=== PATIENT | male | born 1945 | race Caucasian/White ===

== ENCOUNTER → 2016-08-24 | Outpatient (CLI) | payer MEDICARE ==
--- NOTE | 2016-08-29 19:50 | HOLTMON ---
[facility] Test Date: 2016-08-24 Pat Name: LORY WINKLER JR Department: Room: - Gender: Wound Specialist: ANATOLIY MAZA CCT : [id number] Requested By: Shyam Leos Order Number: [id number] Reading MD: Fred Alcala Interpretive Statements No significant diary entries. Heart rate variability was normal. There were occasional PVC's and PAC's with brief runs of apparent ventricular tachycardia vs. atrial fibrillation with aberrant conduction. No significant ST events or pauses. Would suggest further investigation into type and cause of arrhythmia. Electronically Signed On 08-29-2016 19:50:16 EST by Fred Alcala
== END ==
LOC: M EKG 14:38
PROVIDERS: ATTEND Physician Assistant Medical
DX: R42 Dizziness and giddiness (principal); Z86.79 Personal history of other diseases of the circulatory system

== ENCOUNTER → 2016-08-24 | Outpatient (CLI) | payer MEDICARE ==
[2016-08-24 15:04] LABS: MEAN CORPUSCULAR HEMOGLOBIN 32.2 pg (27.0-33.0); MEAN CORPUSCULAR HGB CONC 33.6 g/dl (32.0-36.5); MEAN CORPUSCULAR VOLUME 95.7 fl (80.0-96.0); RED CELL DISTRIBUTION WIDTH 15.3 % (11.5-14.5); WHITE BLOOD COUNT 11.9 K/mm3 (4.0-10.0)
== END ==
LOC: M LAB 14:34
PROVIDERS: ATTEND Internal Medicine Gastroenterology
DX: K25.9 Gastric ulcer, unspecified as acute or chronic, without hemorrhage or perforation (principal); K92.2 Gastrointestinal hemorrhage, unspecified

== ENCOUNTER → 2016-11-11 | Outpatient (CLI) | payer MEDICARE ==
[2016-11-11 17:06] LABS: BASO # 0.1 K/mm3 (0.0-0.2); BASO % 0.8 % (0.0-1.0); EOS # 0.3 K/mm3 (0.0-0.50); EOS % 2.9 % (0.0-3.0); LARGE UNSTAINED CELL # 0.1 K/mm3 (0.0-0.4); LARGE UNSTAINED CELL % 1.2 % (0.0-4.0); LYMPH # 2.2 K/mm3 (1.5-4.5); MEAN CORPUSCULAR HGB CONC 33.3 g/dl (32.0-36.5); MEAN CORPUSCULAR VOLUME 96.2 fl (80.0-96.0); MONO # 0.6 K/mm3 (0.0-0.8); MONO % 5.2 % (0.0-5.0); NEUTROPHILS # 8.8 K/mm3 (1.8-7.7); PLATELET COUNT, AUTOMATED 361 k/mm3 (150-450); RED CELL DISTRIBUTION WIDTH 15.2 % (11.5-14.5)
[2016-11-11 17:29] LABS: ALBUMIN 3.6 GM/DL (3.2-5.2); ALBUMIN/GLOBULIN RATIO 1.16 (1.00-1.93); BILIRUBIN,TOTAL 0.5 MG/DL (0.2-1.0); CALCIUM LEVEL 8.4 MG/DL (8.8-10.2); CREATININE FOR GFR 1.41 MG/DL (0.70-1.30); GLOMERULAR FILTRATION RATE 52.9 (>42); MAGNESIUM LEVEL 1.7 MG/DL (1.8-2.4); PERCENT SATURATION 40.6 % (19.7-37.4); PHOSPHORUS LEVEL 3.6 MG/DL (2.5-4.9); TOTAL PROTEIN 6.7 GM/DL (6.4-8.2)
[2016-11-15 10:57] LABS: PRETREATED FOLATE FOR RBCFOL 11.2 NG/ML
== END ==
LOC: M LAB 16:29
PROVIDERS: ATTEND Surgery
DX: K91.2 Postsurgical malabsorption, not elsewhere classified (principal); Z98.84 Bariatric surgery status

== ENCOUNTER 2016-12-12 10:57 | Emergency (ER) | payer MEDICARE ==
[~2016-12-12] VITALS: Ht 172.7 cm; Wt 80.3 kg
[2016-12-12 10:58] VITALS: BP 169/79
[2016-12-12] MEDS ORDERED: PANT40TA2 (11:22)
[2016-12-12] MEDS ORDERED: LANTINJ4 SQ (11:22)
[2016-12-12] MEDS ORDERED: CARV25TA (11:22)
[2016-12-12] MEDS ORDERED: ASPI1TAB PO (11:22)
== END 2016-12-12 12:03 | disposition home or self-care (01) ==
LOC: M ED 11:51
DX: T16.1XXA Foreign body in right ear, initial encounter (principal); X58.XXXA Exposure to other specified factors, initial encounter; Y93.89 Activity, other specified; Y92.89 Other specified places as the place of occurrence of the external cause; Y99.8 Other external cause status; Z79.899 Other long term (current) drug therapy; Z79.82 Long term (current) use of aspirin; Z79.4 Long term (current) use of insulin; Z88.8 Allergy status to other drugs, medicaments and biological substances; Z95.1 Presence of aortocoronary bypass graft; Z98.0 Intestinal bypass and anastomosis status; Z87.891 Personal history of nicotine dependence

== ENCOUNTER → 2017-07-11 | Outpatient (CLI) | payer MEDICARE ==
[~2017-07-11] MED LIST: ASPI1TAB PO; CARV25TA; LANTINJ4 SQ; PANT40TA2
[2017-07-11 12:08] LABS: BASO # 0.1 10^3/uL (0.0-0.2); BASO % 1.4 % (0.0-1.0); EOS # 0.4 10^3/uL (0.0-0.50); IMMATURE GRANULOCYTE % 0.6 % (0-0); LYMPH # 2.3 10^3/uL (1.5-4.5); LYMPH % 25.6 % (24.0-44.0); MEAN CORPUSCULAR HGB CONC 33.9 g/dl (32.0-36.5); MEAN CORPUSCULAR VOLUME 97.5 fl (80.0-96.0); MONO # 0.7 10^3/uL (0.0-0.8); MONO % 8.2 % (0.0-5.0); NEUTROPHILS # 5.2 10^3/uL (1.8-7.7); NEUTROPHILS % 59.2 % (36.0-66.0); PLATELET COUNT, AUTOMATED 309 10^3/uL (150-450); WHITE BLOOD COUNT 8.9 10^3/uL (4.0-10.0)
[2017-07-11 12:38] LABS: ALBUMIN 3.6 GM/DL (3.2-5.2); ALBUMIN/GLOBULIN RATIO 1.13 (1.00-1.93); BILIRUBIN,TOTAL 0.4 MG/DL (0.2-1.0); CALCIUM LEVEL 9.1 MG/DL (8.8-10.2); CREATININE FOR GFR 1.71 MG/DL (0.70-1.30); GLOMERULAR FILTRATION RATE 42.2 (>42); MAGNESIUM LEVEL 1.8 MG/DL (1.8-2.4); PERCENT SATURATION 35.9 % (19.7-50.0); TOTAL PROTEIN 6.8 GM/DL (6.4-8.2)
[2017-07-11 13:53] LABS: PRETREATED FOLATE FOR RBCFOL 23.3 NG/ML
== END ==
LOC: M LAB 11:09
PROVIDERS: ATTEND Surgery
DX: K91.2 Postsurgical malabsorption, not elsewhere classified (principal); E55.9 Vitamin D deficiency, unspecified; Z98.84 Bariatric surgery status

== ENCOUNTER → 2017-11-14 | Outpatient (CLI) | payer MEDICARE ==
[2017-11-14 13:54] LABS: HEMATOCRIT 32.2 % (42.0-52.0); HEMOGLOBIN 10.9 g/dl (13.5-17.5); MEAN CORPUSCULAR HEMOGLOBIN 32.9 pg (27.0-33.0); MEAN CORPUSCULAR HGB CONC 33.9 g/dl (32.0-36.5); MEAN CORPUSCULAR VOLUME 97.3 fl (80.0-96.0); PLATELET COUNT, AUTOMATED 304 10^3/uL (150-450); RED BLOOD COUNT 3.31 10^6/uL (4.30-6.10); WHITE BLOOD COUNT 10.3 10^3/uL (4.0-10.0)
[2017-11-14 14:24] LABS: ALBUMIN 3.7 GM/DL (3.2-5.2); ALBUMIN/GLOBULIN RATIO 1.19 (1.00-1.93); ALKALINE PHOSPHATASE 57 U/L (45-117); ALT/SGPT 23 U/L (12-78); ANION GAP 4 MEQ/L (8-16); AST/SGOT 14 U/L (7-37); BILIRUBIN,TOTAL 0.4 MG/DL (0.2-1.0); BLOOD UREA NITROGEN 38 MG/DL (7-18); CALCIUM LEVEL 8.8 MG/DL (8.8-10.2); CARBON DIOXIDE LEVEL 27 MEQ/L (21-32); CHLORIDE LEVEL 109 MEQ/L (98-107); CREATININE FOR GFR 1.93 MG/DL (0.70-1.30); GLOMERULAR FILTRATION RATE 36.7 (>42); GLUCOSE, FASTING 143 MG/DL (70-100); POTASSIUM SERUM 4.9 MEQ/L (3.5-5.1); SODIUM LEVEL 140 MEQ/L (136-145); TOTAL PROTEIN 6.8 GM/DL (6.4-8.2)
[2017-11-14 14:29] LABS: ESTIMATED AVERAGE GLUCOSE 209 MG/DL (60-110); HEMOGLOBIN A1c 8.9 %
== END ==
LOC: M LAB 13:29
DX: E11.65 Type 2 diabetes mellitus with hyperglycemia (principal); R53.83 Other fatigue
CPT/HCPCS: 80053

== ENCOUNTER → 2018-02-16 | Outpatient (CLI) | payer MEDICARE ==
[2018-02-16 11:32] LABS: BASO # 0.1 10^3/uL (0.0-0.2); BASO % 0.9 % (0.0-1.0); EOS # 0.4 10^3/uL (0.0-0.50); EOS % 4.5 % (0.0-3.0); HEMATOCRIT 30.8 % (42.0-52.0); HEMOGLOBIN 10.2 g/dl (13.5-17.5); IMMATURE GRANULOCYTE % 0.5 % (0-3.0); LYMPH % 23.7 % (24.0-44.0); MEAN CORPUSCULAR HGB CONC 33.1 g/dl (32.0-36.5); MEAN CORPUSCULAR VOLUME 99.7 fl (80.0-96.0); MONO # 0.7 10^3/uL (0.0-0.8); MONO % 7.5 % (0.0-5.0); NEUTROPHILS # 5.4 10^3/uL (1.8-7.7); NEUTROPHILS % 62.9 % (36.0-66.0); PLATELET COUNT, AUTOMATED 279 10^3/uL (150-450); RED BLOOD COUNT 3.09 10^6/uL (4.30-6.10); RED CELL DISTRIBUTION WIDTH 13.9 % (11.5-14.5); WHITE BLOOD COUNT 8.6 10^3/uL (4.0-10.0)
[2018-02-16 11:59] LABS: ESTIMATED AVERAGE GLUCOSE 148 MG/DL (60-110); HEMOGLOBIN A1c 6.8 %
[2018-02-16 12:57] LABS: CHOLESTEROL LEVEL 135 MG/DL (<200); CHOLESTEROL RISK RATIO 3.375 (<5); HDL CHOLESTEROL 40 MG/DL (>40); LDL CHOLESTEROL 82.6 MG/DL (<100); NON-HDL-C 95 MG/DL; TRIGLYCERIDES LEVEL 62 MG/DL (<150)
== END ==
LOC: M WUC 08:48
DX: E11.65 Type 2 diabetes mellitus with hyperglycemia (principal); E78.2 Mixed hyperlipidemia
CPT/HCPCS: 84443

== ENCOUNTER → 2018-04-02 | Outpatient (CLI) | payer MEDICARE ==
[2018-04-02 13:59] LABS: HEMOGLOBIN 8.3 g/dl (13.5-17.5); MEAN CORPUSCULAR HEMOGLOBIN 32.9 pg (27.0-33.0); MEAN CORPUSCULAR HGB CONC 33.2 g/dl (32.0-36.5); MEAN CORPUSCULAR VOLUME 99.2 fl (80.0-96.0); PLATELET COUNT, AUTOMATED 301 10^3/uL (150-450); RED BLOOD COUNT 2.52 10^6/uL (4.30-6.10); RED CELL DISTRIBUTION WIDTH 13.9 % (11.5-14.5)
== END ==
LOC: M WUC 12:03
DX: D64.9 Anemia, unspecified (principal); K92.1 Melena

== ENCOUNTER → 2018-04-03 | Outpatient (CLI) | payer MEDICARE ==
[2018-04-03 09:08] LABS: HEMATOCRIT 25.2 % (42.0-52.0); HEMOGLOBIN 8.4 g/dl (13.5-17.5); MEAN CORPUSCULAR HEMOGLOBIN 33.9 pg (27.0-33.0); MEAN CORPUSCULAR HGB CONC 33.3 g/dl (32.0-36.5); MEAN CORPUSCULAR VOLUME 101.6 fl (80.0-96.0); PLATELET COUNT, AUTOMATED 312 10^3/uL (150-450); RED BLOOD COUNT 2.48 10^6/uL (4.30-6.10); RED CELL DISTRIBUTION WIDTH 14.1 % (11.5-14.5); WHITE BLOOD COUNT 10.2 10^3/uL (4.0-10.0)
== END ==
LOC: M WUC 08:05
DX: K92.1 Melena (principal); D64.9 Anemia, unspecified

== ENCOUNTER 2018-04-04 18:55 | Inpatient (IN) | payer MEDICARE ==
[2018-04-04 19:21] LABS: BASO # 0.1 10^3/uL (0.0-0.2); BASO % 0.6 % (0.0-1.0); EOS # 0.4 10^3/uL (0.0-0.50); EOS % 3.2 % (0.0-3.0); HEMATOCRIT 22.9 % (42.0-52.0); HEMOGLOBIN 7.7 g/dl (13.5-17.5); IMMATURE GRANULOCYTE % 1.5 % (0-3.0); LYMPH # 2.8 10^3/uL (1.5-4.5); LYMPH % 23.7 % (24.0-44.0); MEAN CORPUSCULAR HEMOGLOBIN 33.5 pg (27.0-33.0); MEAN CORPUSCULAR HGB CONC 33.6 g/dl (32.0-36.5); MEAN CORPUSCULAR VOLUME 99.6 fl (80.0-96.0); MONO # 1.1 10^3/uL (0.0-0.8); MONO % 9.1 % (0.0-5.0); NEUTROPHILS # 7.3 10^3/uL (1.8-7.7); NEUTROPHILS % 61.9 % (36.0-66.0); PLATELET COUNT, AUTOMATED 342 10^3/uL (150-450); RED CELL DISTRIBUTION WIDTH 14.5 % (11.5-14.5); WHITE BLOOD COUNT 11.7 10^3/uL (4.0-10.0)
[2018-04-04 19:33] LABS: INR 0.99; PROTHROMBIN TIME 13.2 SECONDS (12.1-14.4)
[2018-04-04 19:34] LABS: PARTIAL THROMBOPLASTIN TIME 27.2 SECONDS (25.4-37.6)
[2018-04-04 19:47] LABS: ALBUMIN 3.5 GM/DL (3.2-5.2); ALBUMIN/GLOBULIN RATIO 1.17 (1.00-1.93); ALKALINE PHOSPHATASE 54 U/L (45-117); ALT/SGPT 24 U/L (12-78); ANION GAP 7 MEQ/L (8-16); AST/SGOT 11 U/L (7-37); BILIRUBIN,DIRECT 0.1 MG/DL (0.0-0.2); BILIRUBIN,TOTAL 0.3 MG/DL (0.2-1.0); BLOOD UREA NITROGEN 42 MG/DL (7-18); CALCIUM LEVEL 8.5 MG/DL (8.8-10.2); CARBON DIOXIDE LEVEL 25 MEQ/L (21-32); CHLORIDE LEVEL 110 MEQ/L (98-107); CK-MB VALUE MASS 1.5 NG/ML (<3.6); CPK CREATINE PHOSPHOKINASE 55 U/L (39-308); CREATININE FOR GFR 2.19 MG/DL (0.70-1.30); GLOMERULAR FILTRATION RATE 31.6 (>42); GLUCOSE, FASTING 199 MG/DL (70-100); LIPASE 263 U/L (73-393); MB/CK RELATIVE INDEX 2.72 (< OR =4); POTASSIUM SERUM 4.5 MEQ/L (3.5-5.1); SODIUM LEVEL 142 MEQ/L (136-145); TOTAL PROTEIN 6.5 GM/DL (6.4-8.2); TROPONIN I < 0.02 NG/ML (< 0.10)
[2018-04-04 20:57] LABS: IMMEDIATE SPIN CROSSMATCH 1 2
[2018-04-04] MEDS: PANTOPRAZOLE 40MG INJ (PROTONIX) (C9113) IV (21:19)
[2018-04-04] MEDS: NS 1,000 ML IV ×2 (21:35→22:01)
[2018-04-04] MEDS: CARVedilol 12.5 MG TAB PO (21:35)
[2018-04-04] MEDS ORDERED: ACETAMINOPHEN TAB 650MG DOSE (2X325MG) PO (21:45)
[2018-04-04] MEDS ORDERED: MORPHINE 4 MG/ML 1ML VIAL/SYRINGE (J2270) IV (21:45)
[2018-04-04] MEDS ORDERED: ONDANSETRON 4MG/2ML VIAL (J2405) IV (21:45)
[2018-04-05 00:41] LABS: HEMATOCRIT 25.5 % (42.0-52.0); HEMOGLOBIN 8.4 g/dl (13.5-17.5); MEAN CORPUSCULAR HEMOGLOBIN 32.3 pg (27.0-33.0); MEAN CORPUSCULAR HGB CONC 32.9 g/dl (32.0-36.5); MEAN CORPUSCULAR VOLUME 98.1 fl (80.0-96.0); PLATELET COUNT, AUTOMATED 267 10^3/uL (150-450); RED CELL DISTRIBUTION WIDTH 14.7 % (11.5-14.5); WHITE BLOOD COUNT 9.7 10^3/uL (4.0-10.0)
[2018-04-05 01:09] LABS: CK-MB VALUE MASS 1.3 NG/ML (<3.6); CPK CREATINE PHOSPHOKINASE 44 U/L (39-308); MB/CK RELATIVE INDEX 2.95 (< OR =4); TROPONIN I < 0.02 NG/ML (< 0.10)
[2018-04-05 07:20] LABS: HEMATOCRIT 26.6 % (42.0-52.0); HEMOGLOBIN 8.9 g/dl (13.5-17.5); MEAN CORPUSCULAR HEMOGLOBIN 32.8 pg (27.0-33.0); MEAN CORPUSCULAR HGB CONC 33.5 g/dl (32.0-36.5); MEAN CORPUSCULAR VOLUME 98.2 fl (80.0-96.0); PLATELET COUNT, AUTOMATED 265 10^3/uL (150-450); RED BLOOD COUNT 2.71 10^6/uL (4.30-6.10); RED CELL DISTRIBUTION WIDTH 15.1 % (11.5-14.5); WHITE BLOOD COUNT 9.4 10^3/uL (4.0-10.0)
[2018-04-05 07:36] LABS: ESTIMATED AVERAGE GLUCOSE 126 MG/DL (60-110)
[2018-04-05 07:51] LABS: ANION GAP 10 MEQ/L (8-16); BLOOD UREA NITROGEN 35 MG/DL (7-18); CALCIUM LEVEL 8.3 MG/DL (8.8-10.2); CARBON DIOXIDE LEVEL 22 MEQ/L (21-32); CHLORIDE LEVEL 113 MEQ/L (98-107); CK-MB VALUE MASS 1.1 NG/ML (<3.6); CPK CREATINE PHOSPHOKINASE 48 U/L (39-308); CREATININE FOR GFR 1.89 MG/DL (0.70-1.30); GLOMERULAR FILTRATION RATE 37.5 (>42); GLUCOSE, FASTING 127 MG/DL (70-100); MB/CK RELATIVE INDEX 2.29 (< OR =4); POTASSIUM SERUM 4.3 MEQ/L (3.5-5.1); SODIUM LEVEL 145 MEQ/L (136-145); TROPONIN I < 0.02 NG/ML (< 0.10)
[2018-04-05] MEDS: METOPROLOL 5 MG/5 ML VIAL IV ×3 (08:05→17:49)
[2018-04-05] MEDS: PANTOPRAZOLE 40MG INJ (PROTONIX) (C9113) IV ×2 (09:03→20:25)
[2018-04-05] MEDS: hydrALAZINE INJ 20 MG/ML VIAL IV ×5 (09:50→23:48)
[2018-04-05] MEDS: cloNIDine 0.1 MG TAB PO (09:50)
[2018-04-05 12:54] LABS: HEMATOCRIT 25.2 % (42.0-52.0); HEMOGLOBIN 8.6 g/dl (13.5-17.5); MEAN CORPUSCULAR HEMOGLOBIN 33.3 pg (27.0-33.0); MEAN CORPUSCULAR HGB CONC 34.1 g/dl (32.0-36.5); MEAN CORPUSCULAR VOLUME 97.7 fl (80.0-96.0); PLATELET COUNT, AUTOMATED 254 10^3/uL (150-450); RED BLOOD COUNT 2.58 10^6/uL (4.30-6.10); RED CELL DISTRIBUTION WIDTH 15.6 % (11.5-14.5); WHITE BLOOD COUNT 8.3 10^3/uL (4.0-10.0)
[2018-04-05 13:40] LABS: TROPONIN I < 0.02 NG/ML (< 0.10)
[2018-04-05 13:41] LABS: CK-MB VALUE MASS 1.2 NG/ML (<3.6); CPK CREATINE PHOSPHOKINASE 44 U/L (39-308); MB/CK RELATIVE INDEX 2.72 (< OR =4)
[2018-04-05] MEDS: GOLYTELY SOLN 4000 ML BTL PO (16:25)
[2018-04-05] MEDS ORDERED: GLUCOSE 4 GM CHEW TABLET PO (17:45)
[2018-04-05] MEDS ORDERED: DEXTROSE 50% 50 ML SYRINGE IV (17:45)
[2018-04-05] MEDS ORDERED: GLUCAGON FOR INJ 1 MG VIAL (J1610) SC (17:45)
[2018-04-05] MEDS: HumaLOG INSULIN (NovoLOG) PER UNIT SC ×2 (18:00→23:45)
[2018-04-05 18:51] LABS: HEMATOCRIT 27.5 % (42.0-52.0); HEMOGLOBIN 9.2 g/dl (13.5-17.5); MEAN CORPUSCULAR HEMOGLOBIN 32.7 pg (27.0-33.0); MEAN CORPUSCULAR HGB CONC 33.5 g/dl (32.0-36.5); MEAN CORPUSCULAR VOLUME 97.9 fl (80.0-96.0); PLATELET COUNT, AUTOMATED 282 10^3/uL (150-450); RED BLOOD COUNT 2.81 10^6/uL (4.30-6.10); RED CELL DISTRIBUTION WIDTH 15.4 % (11.5-14.5)
[2018-04-05 18:55] LABS: BEDSIDE GLUCOSE 129 MG/DL (83-110)
[2018-04-05 21:26] LABS: BEDSIDE GLUCOSE 144 MG/DL (83-110)
[2018-04-05 23:38] LABS: BEDSIDE GLUCOSE 148 MG/DL (83-110)
[2018-04-06] MEDS: NITROGLYCERIN 0.4 MG SUBL TABLET SL (00:13)
[2018-04-06 00:46] LABS: HEMATOCRIT 31.6 % (42.0-52.0); HEMOGLOBIN 10.8 g/dl (13.5-17.5); MEAN CORPUSCULAR HEMOGLOBIN 32.6 pg (27.0-33.0); MEAN CORPUSCULAR HGB CONC 34.2 g/dl (32.0-36.5); MEAN CORPUSCULAR VOLUME 95.5 fl (80.0-96.0); PLATELET COUNT, AUTOMATED 316 10^3/uL (150-450); RED BLOOD COUNT 3.31 10^6/uL (4.30-6.10); RED CELL DISTRIBUTION WIDTH 15.9 % (11.5-14.5); WHITE BLOOD COUNT 19.1 10^3/uL (4.0-10.0)
[2018-04-06] MEDS: NS 1,000 ML IV ×3 (02:03→12:28)
[2018-04-06] MEDS: hydrALAZINE INJ 20 MG/ML VIAL IV ×6 (04:54→23:58)
[2018-04-06] MEDS: HumaLOG INSULIN (NovoLOG) PER UNIT SC ×4 (06:00→23:58)
[2018-04-06 06:19] LABS: BEDSIDE GLUCOSE 104 MG/DL (83-110)
[2018-04-06] MEDS: METOPROLOL 5 MG/5 ML VIAL IV ×2 (06:22)
[2018-04-06 07:02] LABS: HEMATOCRIT 28.4 % (42.0-52.0); HEMOGLOBIN 9.9 g/dl (13.5-17.5); MEAN CORPUSCULAR HGB CONC 34.9 g/dl (32.0-36.5); MEAN CORPUSCULAR VOLUME 94.7 fl (80.0-96.0); PLATELET COUNT, AUTOMATED 296 10^3/uL (150-450); RED CELL DISTRIBUTION WIDTH 16.1 % (11.5-14.5); WHITE BLOOD COUNT 10.2 10^3/uL (4.0-10.0)
[2018-04-06 07:17] LABS: ANION GAP 10 MEQ/L (8-16); BLOOD UREA NITROGEN 24 MG/DL (7-18); CARBON DIOXIDE LEVEL 21 MEQ/L (21-32); CHLORIDE LEVEL 110 MEQ/L (98-107); CREATININE FOR GFR 1.65 MG/DL (0.70-1.30); GLOMERULAR FILTRATION RATE 43.9 (>42); GLUCOSE, FASTING 108 MG/DL (70-100); POTASSIUM SERUM 3.9 MEQ/L (3.5-5.1); SODIUM LEVEL 141 MEQ/L (136-145)
[2018-04-06] MEDS: CARVedilol 12.5 MG TAB PO ×2 (09:07→20:11)
[2018-04-06] MEDS: PANTOPRAZOLE 40MG INJ (PROTONIX) (C9113) IV ×2 (09:07→20:11)
[2018-04-06 12:35] LABS: BEDSIDE GLUCOSE 116 MG/DL (83-110)
[2018-04-06 12:39] LABS: HEMATOCRIT 27.5 % (42.0-52.0); HEMOGLOBIN 9.5 g/dl (13.5-17.5); MEAN CORPUSCULAR HEMOGLOBIN 33.1 pg (27.0-33.0); MEAN CORPUSCULAR HGB CONC 34.5 g/dl (32.0-36.5); MEAN CORPUSCULAR VOLUME 95.8 fl (80.0-96.0); PLATELET COUNT, AUTOMATED 288 10^3/uL (150-450); RED BLOOD COUNT 2.87 10^6/uL (4.30-6.10); RED CELL DISTRIBUTION WIDTH 16.3 % (11.5-14.5); WHITE BLOOD COUNT 9.3 10^3/uL (4.0-10.0)
[2018-04-06] MEDS ORDERED: LIDOCAINE 2% INJ 100 MG/5 ML SDV (FOR ANES.) As Ordered (13:36)
[2018-04-06] MEDS ORDERED: PROPOFOL 200 MG/20 ML VIAL As Ordered (13:36)
[2018-04-06] MEDS ORDERED: fentaNYL 100 MCG/2 ML INJECTION (J3010) As Ordered (13:44)
[2018-04-06] MEDS ORDERED: ONDANSETRON 4MG/2ML VIAL (J2405) As Ordered (13:48)
[2018-04-06] MEDS ORDERED: ePHEDrine SULFATE 25 MG/5 ML(5MG/ML) SYRINGE As Ordered (14:30)
[2018-04-06] MEDS ORDERED: PHENYLephrine HCL 500 MCG/5 ML (100MCG/ML) SYRINGE (J2370) As Ordered (14:35)
[2018-04-06 16:49] LABS: BEDSIDE GLUCOSE 215 MG/DL (83-110)
[2018-04-06 18:47] LABS: HEMATOCRIT 28.6 % (42.0-52.0); HEMOGLOBIN 9.6 g/dl (13.5-17.5); MEAN CORPUSCULAR HEMOGLOBIN 32.9 pg (27.0-33.0); MEAN CORPUSCULAR HGB CONC 33.6 g/dl (32.0-36.5); MEAN CORPUSCULAR VOLUME 97.9 fl (80.0-96.0); PLATELET COUNT, AUTOMATED 288 10^3/uL (150-450); RED BLOOD COUNT 2.92 10^6/uL (4.30-6.10); RED CELL DISTRIBUTION WIDTH 16.5 % (11.5-14.5); WHITE BLOOD COUNT 9.7 10^3/uL (4.0-10.0)
[2018-04-06 23:29] LABS: BEDSIDE GLUCOSE 113 MG/DL (83-110)
[2018-04-07] MEDS: NS 1,000 ML IV (01:36)
[2018-04-07] MEDS: hydrALAZINE INJ 20 MG/ML VIAL IV ×3 (03:42→12:00)
[2018-04-07 05:49] LABS: ANION GAP 10 MEQ/L (8-16); BLOOD UREA NITROGEN 23 MG/DL (7-18); CALCIUM LEVEL 7.8 MG/DL (8.8-10.2); CARBON DIOXIDE LEVEL 20 MEQ/L (21-32); CHLORIDE LEVEL 114 MEQ/L (98-107); CREATININE FOR GFR 1.77 MG/DL (0.70-1.30); GLOMERULAR FILTRATION RATE 40.5 (>42); GLUCOSE, FASTING 119 MG/DL (70-100); SODIUM LEVEL 144 MEQ/L (136-145)
[2018-04-07] MEDS: HumaLOG INSULIN (NovoLOG) PER UNIT SC (05:52)
[2018-04-07] MEDS: PANTOPRAZOLE 40MG INJ (PROTONIX) (C9113) IV (08:43)
[2018-04-07] MEDS: CARVedilol 12.5 MG TAB PO (08:44)
[2018-04-07] MEDS: ASPIRIN 81 MG ENTERIC TAB PO (08:44)
[2018-04-07 11:55] LABS: BEDSIDE GLUCOSE 189 MG/DL (83-110)
== END 2018-04-07 12:56 | disposition home or self-care (01) | DRG 378 ==
LOC: M ED 18:55 → M ED INP 21:33 → M PCU 04-05 16:08
PROC: 0DBH8ZX Excision of Cecum, Via Natural or Artificial Opening Endoscopic, Diagnostic (ICD-10-PCS; 2018-04-06 14:00)
PROC: 0DJ08ZZ Inspection of Upper Intestinal Tract, Via Natural or Artificial Opening Endoscopic (ICD-10-PCS; 2018-04-06 14:00)
PROC: 30233N1 Transfusion of Nonautologous Red Blood Cells into Peripheral Vein, Percutaneous Approach (ICD-10-PCS; principal; 2018-04-06 14:08)
DX: K92.2 Gastrointestinal hemorrhage, unspecified (principal); D62 Acute posthemorrhagic anemia; I12.9 Hypertensive chronic kidney disease with stage 1 through stage 4 chronic kidney disease, or unspecified chronic kidney disease; K92.1 Melena; N18.3 Chronic kidney disease, stage 3 (moderate); I25.10 Atherosclerotic heart disease of native coronary artery without angina pectoris; Z95.2 Presence of prosthetic heart valve; D12.0 Benign neoplasm of cecum; K64.0 First degree hemorrhoids; Z79.82 Long term (current) use of aspirin; Z79.899 Other long term (current) drug therapy; R73.9 Hyperglycemia, unspecified; Z88.8 Allergy status to other drugs, medicaments and biological substances; I45.6 Pre-excitation syndrome; I65.29 Occlusion and stenosis of unspecified carotid artery

== ENCOUNTER → 2018-07-09 | Outpatient (CLI) | payer MEDICARE ==
[2018-07-09 14:46] LABS: BASO # 0.1 10^3/uL (0.0-0.2); BASO % 0.8 % (0.0-1.0); EOS # 0.4 10^3/uL (0.0-0.50); EOS % 4.4 % (0.0-3.0); HEMATOCRIT 31.5 % (42.0-52.0); HEMOGLOBIN 10.6 g/dl (13.5-17.5); IMMATURE GRANULOCYTE % 0.7 % (0-3.0); LYMPH # 2.3 10^3/uL (1.5-4.5); LYMPH % 23.1 % (24.0-44.0); MEAN CORPUSCULAR HEMOGLOBIN 33.2 pg (27.0-33.0); MEAN CORPUSCULAR HGB CONC 33.7 g/dl (32.0-36.5); MEAN CORPUSCULAR VOLUME 98.7 fl (80.0-96.0); MONO # 0.7 10^3/uL (0.0-0.8); MONO % 7.2 % (0.0-5.0); NEUTROPHILS # 6.3 10^3/uL (1.8-7.7); NEUTROPHILS % 63.8 % (36.0-66.0); PLATELET COUNT, AUTOMATED 292 10^3/uL (150-450); RED BLOOD COUNT 3.19 10^6/uL (4.30-6.10); RED CELL DISTRIBUTION WIDTH 14.6 % (11.5-14.5); WHITE BLOOD COUNT 9.8 10^3/uL (4.0-10.0)
== END ==
LOC: M LAB 14:18
DX: D50.0 Iron deficiency anemia secondary to blood loss (chronic) (principal)
CPT/HCPCS: 85025

== ENCOUNTER 2018-07-24 13:40 | Inpatient (IN) | payer MEDICARE ==
[2018-07-24 15:27] LABS: BASO # 0.1 10^3/uL (0.0-0.2); BASO % 0.7 % (0.0-1.0); EOS # 0.3 10^3/uL (0.0-0.50); EOS % 3.2 % (0.0-3.0); HEMATOCRIT 25.7 % (42.0-52.0); HEMOGLOBIN 8.6 g/dl (13.5-17.5); IMMATURE GRANULOCYTE % 0.5 % (0-3.0); LYMPH # 1.9 10^3/uL (1.5-4.5); LYMPH % 19.1 % (24.0-44.0); MEAN CORPUSCULAR HGB CONC 33.5 g/dl (32.0-36.5); MEAN CORPUSCULAR VOLUME 98.5 fl (80.0-96.0); MONO # 0.8 10^3/uL (0.0-0.8); MONO % 7.7 % (0.0-5.0); NEUTROPHILS # 6.9 10^3/uL (1.8-7.7); NEUTROPHILS % 68.8 % (36.0-66.0); PLATELET COUNT, AUTOMATED 302 10^3/uL (150-450); RED BLOOD COUNT 2.61 10^6/uL (4.30-6.10); RED CELL DISTRIBUTION WIDTH 14.5 % (11.5-14.5)
[2018-07-24 15:38] LABS: PROTHROMBIN TIME 14.4 SECONDS (12.1-14.4)
[2018-07-24 15:39] LABS: PARTIAL THROMBOPLASTIN TIME 28.1 SECONDS (25.4-37.6)
[2018-07-24 15:54] LABS: ALBUMIN 3.4 GM/DL (3.2-5.2); ALBUMIN/GLOBULIN RATIO 1.17 (1.00-1.93); ALKALINE PHOSPHATASE 55 U/L (45-117); ALT/SGPT 22 U/L (12-78); ANION GAP 7 MEQ/L (8-16); AST/SGOT 17 U/L (7-37); BILIRUBIN,DIRECT < 0.1 MG/DL (0.0-0.2); BILIRUBIN,TOTAL 0.2 MG/DL (0.2-1.0); BLOOD UREA NITROGEN 51 MG/DL (7-18); CARBON DIOXIDE LEVEL 22 MEQ/L (21-32); CHLORIDE LEVEL 110 MEQ/L (98-107); CPK CREATINE PHOSPHOKINASE 66 U/L (39-308); CREATININE FOR GFR 2.11 MG/DL (0.70-1.30); GLUCOSE, FASTING 128 MG/DL (70-100); MB/CK RELATIVE INDEX 2.88 (< OR =4); POTASSIUM SERUM 4.8 MEQ/L (3.5-5.1); SODIUM LEVEL 139 MEQ/L (136-145); TOTAL PROTEIN 6.3 GM/DL (6.4-8.2); TROPONIN I < 0.02 NG/ML (< 0.10)
[2018-07-24] MEDS: NS 500 ML IV (16:00)
[2018-07-24] MEDS: NS 1,000 ML IV ×2 (16:00→17:48)
[2018-07-24 17:02] LABS: IMMEDIATE SPIN CROSSMATCH 1 2
[2018-07-24] MEDS ORDERED: NS 1,000 ML IV (17:37)
[2018-07-24] MEDS ORDERED: NITROGLYCERIN 0.4 MG SUBL TABLET SL (18:15)
[2018-07-24] MEDS ORDERED: DEXTROSE 50% 50 ML SYRINGE IV (18:45)
[2018-07-24] MEDS ORDERED: GLUCAGON FOR INJ 1 MG VIAL (J1610) SC (18:45)
[2018-07-24] MEDS ORDERED: GLUCOSE 4 GM CHEW TABLET PO (18:45)
[2018-07-24] MEDS: CARVedilol 12.5 MG TAB PO (21:00)
[2018-07-24] MEDS: HumaLOG INSULIN (NovoLOG) PER UNIT SC (21:00)
[2018-07-24] MEDS: PANTOPRAZOLE 40MG INJ (PROTONIX) (C9113) IV (21:00)
[2018-07-25 00:45] LABS: HEMATOCRIT 31.3 % (42.0-52.0); HEMOGLOBIN 10.5 g/dl (13.5-17.5); MEAN CORPUSCULAR HEMOGLOBIN 31.9 pg (27.0-33.0); MEAN CORPUSCULAR HGB CONC 33.5 g/dl (32.0-36.5); MEAN CORPUSCULAR VOLUME 95.1 fl (80.0-96.0); PLATELET COUNT, AUTOMATED 246 10^3/uL (150-450); RED BLOOD COUNT 3.29 10^6/uL (4.30-6.10); RED CELL DISTRIBUTION WIDTH 14.6 % (11.5-14.5); WHITE BLOOD COUNT 10.3 10^3/uL (4.0-10.0)
[2018-07-25] MEDS: NS 1,000 ML IV ×3 (01:48→15:21)
[2018-07-25 05:24] LABS: HEMATOCRIT 30.3 % (42.0-52.0); HEMOGLOBIN 10.2 g/dl (13.5-17.5); MEAN CORPUSCULAR HEMOGLOBIN 32.5 pg (27.0-33.0); MEAN CORPUSCULAR HGB CONC 33.7 g/dl (32.0-36.5); MEAN CORPUSCULAR VOLUME 96.5 fl (80.0-96.0); PLATELET COUNT, AUTOMATED 215 10^3/uL (150-450); RED BLOOD COUNT 3.14 10^6/uL (4.30-6.10); RED CELL DISTRIBUTION WIDTH 15.1 % (11.5-14.5); WHITE BLOOD COUNT 10.1 10^3/uL (4.0-10.0)
[2018-07-25 05:47] LABS: ANION GAP 6 MEQ/L (8-16); BLOOD UREA NITROGEN 44 MG/DL (7-18); CALCIUM LEVEL 7.8 MG/DL (8.8-10.2); CARBON DIOXIDE LEVEL 22 MEQ/L (21-32); CHLORIDE LEVEL 114 MEQ/L (98-107); CREATININE FOR GFR 1.81 MG/DL (0.70-1.30); GLOMERULAR FILTRATION RATE 39.4 (>42); GLUCOSE, FASTING 120 MG/DL (70-100); POTASSIUM SERUM 4.2 MEQ/L (3.5-5.1); SODIUM LEVEL 142 MEQ/L (136-145)
[2018-07-25] MEDS: HumaLOG INSULIN (NovoLOG) PER UNIT SC ×4 (07:30→20:35)
[2018-07-25] MEDS: PANTOPRAZOLE 40MG INJ (PROTONIX) (C9113) IV ×2 (08:57→20:24)
[2018-07-25] MEDS: CARVedilol 12.5 MG TAB PO ×2 (08:58→20:24)
[2018-07-25 11:36] LABS: BEDSIDE GLUCOSE 100 MG/DL (83-110)
[2018-07-25 12:36] LABS: HEMATOCRIT 31.7 % (42.0-52.0); HEMOGLOBIN 10.7 g/dl (13.5-17.5); MEAN CORPUSCULAR HEMOGLOBIN 32.4 pg (27.0-33.0); MEAN CORPUSCULAR HGB CONC 33.8 g/dl (32.0-36.5); MEAN CORPUSCULAR VOLUME 96.1 fl (80.0-96.0); PLATELET COUNT, AUTOMATED 251 10^3/uL (150-450); RED CELL DISTRIBUTION WIDTH 15.2 % (11.5-14.5); WHITE BLOOD COUNT 9.3 10^3/uL (4.0-10.0)
[2018-07-25] MEDS ORDERED: PROPOFOL 200 MG/20 ML VIAL As Ordered (13:02)
[2018-07-25] MEDS ORDERED: LIDOCAINE 2% INJ 100 MG/5 ML SDV (FOR ANES.) As Ordered (13:02)
[2018-07-25] MEDS ORDERED: fentaNYL 100 MCG/2 ML INJECTION (J3010) As Ordered (13:21)
[2018-07-25 16:43] LABS: BEDSIDE GLUCOSE 90 MG/DL (83-110)
[2018-07-25] MEDS ORDERED: hydrALAZINE INJ 20 MG/ML VIAL As Ordered (17:30)
[2018-07-25] MEDS: hydrALAZINE INJ 20 MG/ML VIAL IV (17:33)
[2018-07-25 18:20] LABS: MAGNESIUM LEVEL 1.7 MG/DL (1.8-2.4)
[2018-07-25] MEDS: MAG SULF 1GM/100ML (MAG RUN) 1 GM in APPROPRIATE DILUENT 1 EA IV (18:31)
[2018-07-25 18:39] LABS: HEMATOCRIT 33.1 % (42.0-52.0); HEMOGLOBIN 11.1 g/dl (13.5-17.5); MEAN CORPUSCULAR HEMOGLOBIN 32.4 pg (27.0-33.0); MEAN CORPUSCULAR HGB CONC 33.5 g/dl (32.0-36.5); MEAN CORPUSCULAR VOLUME 96.5 fl (80.0-96.0); PLATELET COUNT, AUTOMATED 261 10^3/uL (150-450); RED BLOOD COUNT 3.43 10^6/uL (4.30-6.10); RED CELL DISTRIBUTION WIDTH 15.4 % (11.5-14.5); WHITE BLOOD COUNT 11.4 10^3/uL (4.0-10.0)
[2018-07-25 20:34] LABS: BEDSIDE GLUCOSE 219 MG/DL (83-110)
[2018-07-25 23:59] LABS: HEMOGLOBIN 9.6 g/dl (13.5-17.5); MEAN CORPUSCULAR HEMOGLOBIN 32.7 pg (27.0-33.0); MEAN CORPUSCULAR HGB CONC 34.3 g/dl (32.0-36.5); MEAN CORPUSCULAR VOLUME 95.2 fl (80.0-96.0); PLATELET COUNT, AUTOMATED 221 10^3/uL (150-450); RED BLOOD COUNT 2.94 10^6/uL (4.30-6.10); RED CELL DISTRIBUTION WIDTH 15.1 % (11.5-14.5); WHITE BLOOD COUNT 10.5 10^3/uL (4.0-10.0)
[2018-07-26 05:33] LABS: HEMATOCRIT 28.9 % (42.0-52.0); HEMOGLOBIN 9.8 g/dl (13.5-17.5); MEAN CORPUSCULAR HEMOGLOBIN 32.6 pg (27.0-33.0); MEAN CORPUSCULAR HGB CONC 33.9 g/dl (32.0-36.5); PLATELET COUNT, AUTOMATED 223 10^3/uL (150-450); RED BLOOD COUNT 3.01 10^6/uL (4.30-6.10); RED CELL DISTRIBUTION WIDTH 15.1 % (11.5-14.5); WHITE BLOOD COUNT 9.1 10^3/uL (4.0-10.0)
[2018-07-26 05:51] LABS: ANION GAP 8 MEQ/L (8-16); BLOOD UREA NITROGEN 33 MG/DL (7-18); CALCIUM LEVEL 7.9 MG/DL (8.8-10.2); CARBON DIOXIDE LEVEL 21 MEQ/L (21-32); CHLORIDE LEVEL 111 MEQ/L (98-107); CREATININE FOR GFR 1.88 MG/DL (0.70-1.30); GLOMERULAR FILTRATION RATE 37.7 (>42); GLUCOSE, FASTING 132 MG/DL (70-100); POTASSIUM SERUM 4.1 MEQ/L (3.5-5.1); SODIUM LEVEL 140 MEQ/L (136-145)
[2018-07-26] MEDS: HumaLOG INSULIN (NovoLOG) PER UNIT SC ×2 (08:18→13:13)
[2018-07-26] MEDS: hydrALAZINE INJ 20 MG/ML VIAL IV (08:18)
[2018-07-26] MEDS ORDERED: SLF 3 ML SYR IV (09:45)
[2018-07-26] MEDS: PANTOPRAZOLE 40MG INJ (PROTONIX) (C9113) IV (09:49)
[2018-07-26] MEDS: CARVedilol 12.5 MG TAB PO (09:50)
[2018-07-26 11:41] LABS: BEDSIDE GLUCOSE 174 MG/DL (83-110)
[2018-07-26 11:53] LABS: HEMATOCRIT 30.1 % (42.0-52.0); HEMOGLOBIN 10.3 g/dl (13.5-17.5); MEAN CORPUSCULAR HEMOGLOBIN 32.9 pg (27.0-33.0); MEAN CORPUSCULAR HGB CONC 34.2 g/dl (32.0-36.5); MEAN CORPUSCULAR VOLUME 96.2 fl (80.0-96.0); PLATELET COUNT, AUTOMATED 262 10^3/uL (150-450); RED BLOOD COUNT 3.13 10^6/uL (4.30-6.10); RED CELL DISTRIBUTION WIDTH 15.3 % (11.5-14.5); WHITE BLOOD COUNT 9.1 10^3/uL (4.0-10.0)
[2018-07-26] MEDS: SLF 3 ML SYR IV (13:13)
== END 2018-07-26 14:55 | disposition home or self-care (01) | DRG 379 ==
LOC: M ED 13:40 → M ED INP 18:06 → M PCU 22:59
PROC: 0DJ08ZZ Inspection of Upper Intestinal Tract, Via Natural or Artificial Opening Endoscopic (ICD-10-PCS; principal; 2018-07-25 07:53)
PROC: 30233N1 Transfusion of Nonautologous Red Blood Cells into Peripheral Vein, Percutaneous Approach (ICD-10-PCS; 2018-07-25 13:02)
DX: K92.2 Gastrointestinal hemorrhage, unspecified (principal); D50.0 Iron deficiency anemia secondary to blood loss (chronic); I45.6 Pre-excitation syndrome; I25.10 Atherosclerotic heart disease of native coronary artery without angina pectoris; E86.0 Dehydration; N18.9 Chronic kidney disease, unspecified; I12.9 Hypertensive chronic kidney disease with stage 1 through stage 4 chronic kidney disease, or unspecified chronic kidney disease; E11.22 Type 2 diabetes mellitus with diabetic chronic kidney disease; Z95.5 Presence of coronary angioplasty implant and graft; Z79.82 Long term (current) use of aspirin; Z79.899 Other long term (current) drug therapy; Z88.8 Allergy status to other drugs, medicaments and biological substances; Z98.84 Bariatric surgery status

== ENCOUNTER → 2018-09-06 | Outpatient (CLI) | payer MEDICARE ==
[~2018-09-06] MED LIST changes: +ASPI81TAEC PO; +BASA100I; +BASA100I SC; +CALTCHW4 PO; +CARV25TA PO; +FERR1TAB8 PO; +NITR0.4S14; +NITR4TASL SL; -PANT40TA2; +PANT40TA3; +PANT40TA3 PO; +VITA-193 PO; +VITACHTA PO; +[UNRECOGNIZED DRUG - CODE] PO
--- NOTE | 2018-09-06 10:43 | REP ---
URINARY TRACT SONOGRAPHY WITH RENAL ARTERY DOPPLER ASSESSMENT: HISTORY: Chronic kidney disease stage III. Renovascular hypertension. MORPHOLOGIC FINDINGS: Renal cortical echogenicity pattern is normal. Contours are smooth. No adrenal mass, cyst or hydronephrosis is seen on either side. The right kidney measures 12.0 x 5.7 x 6.0 cm. Left renal dimensions are 11.8 x 5.3 x 6.4 cm. Scanning at the level of the urinary bladder demonstrates prostate enlargement elevating the bladder dome. The prostate measures 4.3 x 6.1 x 4.8 cm for a calculated glandular volume of 65.8 mL . IMPRESSION: No evidence of hydronephrosis. Enlarged prostate. No other morphologic abnormality. DOPPLER VASCULAR ASSESSMENT: Peak systolic flow velocity in the abdominal aorta at the level of the main renal artery is normal measured at 91.5 cm/s. Peak systolic flow velocity in the left main renal artery is recorded at 156.6 cm/s. That in the right main renal artery is recorded at 160.8 cm/s. Renal to aortic flow velocity ratios are normal, at 1.8 on the right and 1.7 on the left. Resistive indices and acceleration times are measured in the intralobar arteries of the upper, mid and lower poles of each kidney. Resistive indices are slightly elevated bilaterally. IMPRESSION: There is no direct or indirect evidence to suggest renal artery stenosis by Doppler. Electronically Signed by John Lima MD 09/06/2018 11:28 A
== END ==
LOC: M RAD 08:09
PROVIDERS: ATTEND Internal Medicine Nephrology
DX: N18.3 Chronic kidney disease, stage 3 (moderate) (principal); I15.0 Renovascular hypertension

== ENCOUNTER → 2018-09-21 | Outpatient (CLI) | payer MEDICARE ==
[2018-09-21 14:27] LABS: BASO # 0.1 10^3/uL (0.0-0.2); BASO % 0.9 % (0.0-1.0); EOS # 0.4 10^3/uL (0.0-0.50); EOS % 4.2 % (0.0-3.0); HEMOGLOBIN 10.1 g/dl (13.5-17.5); LYMPH # 2.1 10^3/uL (1.5-4.5); LYMPH % 21.3 % (24.0-44.0); MEAN CORPUSCULAR HEMOGLOBIN 32.8 pg (27.0-33.0); MEAN CORPUSCULAR HGB CONC 32.6 g/dl (32.0-36.5); MEAN CORPUSCULAR VOLUME 100.6 fl (80.0-96.0); MONO # 0.7 10^3/uL (0.0-0.8); MONO % 7.2 % (0.0-5.0); NEUTROPHILS # 6.4 10^3/uL (1.8-7.7); NEUTROPHILS % 65.8 % (36.0-66.0); PLATELET COUNT, AUTOMATED 301 10^3/uL (150-450); RED BLOOD COUNT 3.08 10^6/uL (4.30-6.10); WHITE BLOOD COUNT 9.7 10^3/uL (4.0-10.0)
[2018-09-21 15:00] LABS: PERCENT SATURATION 33.6 % (19.7-50.0)
== END ==
LOC: M LAB 13:39
PROVIDERS: ATTEND Internal Medicine Gastroenterology
DX: D50.0 Iron deficiency anemia secondary to blood loss (chronic) (principal)

== ENCOUNTER → 2018-11-13 | Outpatient (CLI) | payer MEDICARE ==
[2018-11-13 12:05] LABS: BASO # 0.1 10^3/uL (0.0-0.2); BASO % 0.8 % (0.0-1.0); EOS # 0.4 10^3/uL (0.0-0.50); HEMATOCRIT 29.8 % (42.0-52.0); HEMOGLOBIN 9.7 g/dl (13.5-17.5); LYMPH # 2.1 10^3/uL (1.5-4.5); LYMPH % 21.5 % (24.0-44.0); MEAN CORPUSCULAR HEMOGLOBIN 31.9 pg (27.0-33.0); MEAN CORPUSCULAR HGB CONC 32.6 g/dl (32.0-36.5); MONO % 10.3 % (0.0-5.0); NEUTROPHILS # 6.1 10^3/uL (1.8-7.7); NEUTROPHILS % 62.8 % (36.0-66.0); PLATELET COUNT, AUTOMATED 275 10^3/uL (150-450); RED BLOOD COUNT 3.04 10^6/uL (4.30-6.10); WHITE BLOOD COUNT 9.8 10^3/uL (4.0-10.0)
[2018-11-13 12:35] LABS: FERRITIN 281 NG/ML (26-388); IRON (FE) 62 UG/DL (65-175); PERCENT SATURATION 24.3 % (19.7-50.0); TOTAL IRON BINDING CAPACITY 255 UG/DL (250-450)
[2018-11-13 12:39] LABS: FOLATE > 24.0 NG/ML
--- NOTE | 2018-11-13 13:19 | REP ---
Chest x-ray: Two views. History: Cough. Comparison study: July 24, 2018. Findings: The patient is status post prior median sternotomy and coronary artery stent procedures. The lungs are symmetrically aerated and clear. Heart size is normal. Pulmonary vasculature is not increased. Pleural angles are sharp. No infiltrate is seen. Impression: Evidence of prior sternotomy and coronary artery stenting. Otherwise no active disease. Electronically Signed by John Lima MD 11/13/2018 01:23 P
[2018-11-13 14:12] LABS: VITAMIN B12 LEVEL > 2000 PG/ML
== END ==
LOC: M LAB 11:14
PROVIDERS: ATTEND Internal Medicine Gastroenterology
DX: D50.0 Iron deficiency anemia secondary to blood loss (chronic) (principal)

== ENCOUNTER 2018-12-06 12:16 | Inpatient (IN) | payer MEDICARE ==
[~2018-12-06] VITALS: Ht 172.7 cm; Wt 95.2 kg
[~2018-12-06 12:16] MED LIST changes: -ASPI1TAB PO; +ASPI81TA26 PO; +VITA500075 PO; -[UNRECOGNIZED DRUG - CODE] PO
[2018-12-06] MEDS ORDERED: LOSA100T8 (12:30)
[2018-12-06] MEDS ORDERED: EZET10TA PO (12:30)
[2018-12-06 13:32] LABS: BASO # 0.1 10^3/uL (0.0-0.2); BASO % 0.5 % (0.0-1.0); EOS # 0.1 10^3/uL (0.0-0.50); EOS % 0.6 % (0.0-3.0); HEMATOCRIT 27.9 % (42.0-52.0); LYMPH # 1.4 10^3/uL (1.5-4.5); MEAN CORPUSCULAR HEMOGLOBIN 32.3 pg (27.0-33.0); MEAN CORPUSCULAR HGB CONC 32.3 g/dl (32.0-36.5); MONO # 1.1 10^3/uL (0.0-0.8); NEUTROPHILS # 14.9 10^3/uL (1.8-7.7); NEUTROPHILS % 84.2 % (36.0-66.0); PLATELET COUNT, AUTOMATED 290 10^3/uL (150-450); RED BLOOD COUNT 2.79 10^6/uL (4.30-6.10); WHITE BLOOD COUNT 17.7 10^3/uL (4.0-10.0)
[2018-12-06 13:53] LABS: C REACTIVE PROTEIN QUANTITATIV 13.6 MG/DL (0.00-0.30); CALCIUM LEVEL 8.4 MG/DL (8.8-10.2); CREATININE FOR GFR 2.62 MG/DL (0.70-1.30); GLOMERULAR FILTRATION RATE 25.7 (>42); POTASSIUM SERUM 4.4 MEQ/L (3.5-5.1)
[2018-12-06] MEDS ORDERED: NS 1,000 ML IV ONE (14:00)
[2018-12-06] MEDS ORDERED: SANT250O8 TOP (14:19)
[2018-12-06] MEDS ORDERED: HYZA50TA2 PO (14:19)
[2018-12-06 14:27] LABS: ERYTHROCYTE SEDIMENTATION RATE 126 mm/hr (0-20)
[2018-12-06] MEDS ORDERED: NS IV ONE (14:30)
[2018-12-06] MEDS ORDERED: DILUENT IV ONE (14:30)
[2018-12-06] MEDS ORDERED: VANCOMYCIN HCL 1,000 MG, VIAL MATE ADAPTER 1 EACH in D5W 250 ML IV ONE (14:30)
[2018-12-06] MEDS ORDERED: MAALOX 30 ML SUSP *UDC PO PRN (15:00)
[2018-12-06] MEDS ORDERED: MOM 30ML SUSPENSION UDC PO PRN (15:00)
[2018-12-06] MEDS ORDERED: IPRATROPIUM 0.5MG/ALBUTEROL 2.5MG INH SOL UD 3ML (DUONEB)(J7620) NEB PRN (15:00)
[2018-12-06] MEDS ORDERED: NITROGLYCERIN 0.4 MG SUBL TABLET SL PRN (15:15)
[2018-12-06] MEDS ORDERED: DEXTROSE 50% 50 ML SYRINGE IV PRN (15:15)
[2018-12-06] MEDS ORDERED: GLUCAGON FOR INJ 1 MG VIAL (J1610) SC PRN (15:15)
[2018-12-06] MEDS ORDERED: GLUCOSE 4 GM CHEW TABLET PO PRN (15:15)
[2018-12-06] MEDS ORDERED: **hydrALAZINE** 10 MG TAB PO PRN (15:30)
--- NOTE | 2018-12-06 15:42 | HPEPDOC ---
[facility] Medical History & Physical Date of Admission Dec 06, 2018 History and Physical CHIEF COMPLAINT: [Left foot wound] HISTORY OF PRESENT ILLNESS: [73-year-old who was in a few past medical history of Fpzpi-Wnnwjtlyb-Txzeo, coronary artery disease with 6 stent, cardiac and abdominal bypass, carotid stenosis, previous history of GI bleed who was sent by Dr. Polanco due to worsening of the left foot ulceration. Patient states that he had developed a lesion on his left foot couple of months ago which progressively worsened and followed up with Dr. Polanco as outpatient. Unfortunately for the past 2 days, he overworked his foot as he had chores in his yard. When he followed up with Dr. Polanco today patient's foot had drainage and lesion and wound looked worse therefore patient was sent to the hospital for further evaluation and treatment for cellulitis and to rule out osteo-myelitis. Patient states that the wound had purulent drainage in the office. Patient denied of any fever, diarrhea, or dysuria. He did have dry cough for 1 week duration. He mentioned that he is not a smoker but used to be a former smoker but does not utilize any inhalers or respiratory therapy. He developed some greenish phlegm and small amount mainly dry cough. Spoke to Dr. Polanco who will evaluate patient in the hospital and recommends MRI of the foot and antibiotic including vancomycin as he suspected Gram- positive organism. PAST MEDICAL HISTORY: Kimmn-Ckdrurguz-Uspdq Coronary artery disease with 6 stent Cardiac abdominal bypass Carotid stenosis Previous GI history PAST SURGICAL HISTORY: 6 stent, cardiac and abdominal bypass SOCIAL HISTORY: Denies of smoking, drinking, or drug abuse. Former smoker does not utilize any inhalers. FAMILY HISTORY: Brother had pancreatic cancer, family history of diabetes and coronary artery disease ALLERGIES: Please see below. REVIEW OF SYSTEMS: 12 point review systems negative than those described in [facility] HOME MEDICATIONS: Please see below. PHYSICAL EXAMINATION: VITAL SIGNS: Please see below GENERAL APPEARANCE: Resting comfortably HEENT: Normocephalic, PERRLA, Mucous moist, CARDIOVASCULAR: S1,S2, pulse present, regularly, regular, LUNGS: Equal air entry b/l, no wheezes or crackle, intermittent dry cough ABDOMEN: Soft, BS present, no tenderness, no guarding GENITOURINARY: No Kohler EXTREMITIES: B/L no edema, capillary refill present , left foot dorsal plantar metatarsal lesion 2-3 cm in diameter with redness and swelling affecting the foot but not to his toes and not beyond the ankle SKIN: Warm, No fever NEUROLOGICAL: Cranial nerves grossly intact PSYCHIATRIC: Normal mood and affect for current situation LABORATORY DATA: See below. IMAGING: [Pending] MICROBIOLOGY: Please see below. 73-year-old who was in a few past medical history of Hakjg-Zqobxqfak-Qnryb, coronary artery disease with 6 stent, cardiac and abdominal bypass, carotid stenosis, previous history of GI bleed who was sent by Dr. Polanco due to worsening of the left foot ulceration. Left foot cellulitis, possible osteomyelitis -MRI of the foot:Findings consistent with osteomyelitis involving the distal aspect of the first metatarsal and possibly the medial corner of the base of the proximal phalanx of the great toe. There is no overlying skin ulcer evident and there is adjacent edema and some fluid. -Empiric antibiotic of Zosyn and vancomycin -Blood culture 2: Pending -Consult with Dr. Polanco (podiatry) -Initial ESR 126, CRP 13.6 -left leg us :neg for dvt Lactic acidosis, leukocytosis -IV fluid -Antibiotics above -Blood culture as above Acute on chronic kidney disease stage III -IV fluid -Hold renal toxic medication -Monitor Diabetes -finger sick monitoring and coverage -Hemoglobin A1c -Patient takes sliding scale of long-acting insulin today he took 60 units due to sugar being in the 200s but just a did not take any. Verify home insulin dosing and resumespoke to pharmacy could not come to a conclusion as to how much patient normally takes of his long-acting insulin. We will start off with 10 units twice a day with parameters and escalate as needed. Cough -Checks x-ray: no acute disease -Respiratory therapy as needed History of Whozw-Usiojakmq-Ygpuz, coronary artery disease with 6 stent -Resume carvedilol -Resume Nitrostat -Resume Ezetimibe -Patient currently not on aspirin most likely secondary due to history of GI bleed, please follow with the PCP and primary cardiology as outpatient Hypertension -Hold losartan/hydrochlorothiazide -As needed hydralazine History of GI bleed -resume iron supplement, pantoprazole Cardiac abdominal bypass history History of cardiac stenosis DVT prophylaxis with TIMOTHY and SCD once left LE neg for DVT Vital Signs Vital Signs Date Time Temp Pulse Resp B/P (MAP) Pulse Ox O2 Delivery O2 Flow Rate FiO2 12/06/18 13:17 12/06/18 12:16 98.2 68 20 97 Room Air Laboratory Data Labs 24H Laboratory Tests 2 12/06/18 13:12: Immature Granulocyte % (Auto) 0.7, White Blood Count 17.7H, Red Blood Count 2 .79L, Hemoglobin 9.0L, Hematocrit 27.9L, Mean Corpuscular Volume 100.0H, Mean Corpuscular Hemoglobin 32.3, Mean Corpuscular Hemoglobin Concent 32.3, Red Cell Distribution Width 13.9, Platelet Count 290, Neutrophils (%) (Auto) 84.2H, Lymphocytes (%) (Auto) 8.0L, Monocytes (%) (Auto) 6.0H, Eosinophils (%) (Auto) 0.6, Basophils (%) (Auto) 0.5, Neutrophils # (Auto) 14.9H, Lymphocytes # (Auto) 1.4L, Monocytes # (Auto) 1.1H, Eosinophils # (Auto) 0.1, Basophils # (Auto) 0.1, Nucleated Red Blood Cells % (auto) 0.1H, Erythrocyte Sedimentation Rate 126H, Anion Gap 6L, Glomerular Filtration Rate 25.7L, Lactic Acid Level 3.0*H, Blood Urea Nitrogen 38H, Creatinine 2.62H, Sodium Level 137, Potassium Level 4.4, Chloride Level 106, Carbon Dioxide Level 25, Calcium Level 8.4L, C-Reactive Protein, Quantitative 13.60H CBC/BMP Laboratory Tests 12/06/18 13:12 Red Blood Count 2.79 L, Mean Corpuscular Volume 100.0 H, Mean Corpuscular Hemoglobin 32.3, Mean Corpuscular Hemoglobin Concent 32.3, Red Cell Distribution Width 13.9, Neutrophils (%) (Auto) 84.2 H, Lymphocytes (%) (Auto) 8.0 L, Monocytes (%) (Auto) 6.0 H, Eosinophils (%) (Auto) 0.6, Basophils (%) (Auto) 0.5, Neutrophils # (Auto) 14.9 H, Lymphocytes # (Auto) 1.4 L, Monocytes # (Auto) 1.1 H, Eosinophils # (Auto) 0.1, Basophils # (Auto) 0.1, Calcium Level 8.4 L Microbiology Microbiology 12/06/18 Blood Culture, Received Pending 12/06/18 Blood Culture, Received Pending Home Medications Scheduled Calcium Carbonate/Vitamin D3 (Caltrate 600 + D Soft Chew Tab) 1 Chw Chw, 1 CHW PO BID Carvedilol (Carvedilol) 25 Mg Tab, 25 MG PO BID Cholecalciferol (Vitamin D3) (Vitamin D3) 5,000 Unit Cap, 10,000 UNIT PO QHS Collagenase Clostridium Hist. 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 HIS BLOOD PRESSURE HAS BEEN RUNNING NORMAL ON THE 50/12.5 STRENGTH Multivitamins (Child Chew Vitamin) 1 Tab Chew, 2 TAB PO DAILY Pantoprazole Sodium (Pantoprazole Sodium) 40 Mg Tab, 40 MG PO DAILY Scheduled PRN Nitroglycerin (Nitrostat) 0.4 Mg Subl, 0.4 MG SL NITRO PRN for CHEST PAIN Allergies Coded Allergies: nicotine (Verified Allergy, Intermediate, hives, 12/06/18) atorvastatin (Verified Adverse Reaction, Intermediate, myalgia, 12/06/18) clopidogrel (Verified Adverse Reaction, Intermediate, rectal bleeding, 12/06/18) pioglitazone (Verified Adverse Reaction, Intermediate, myalgia, 12/06/18) rosuvastatin (Verified Adverse Reaction, Intermediate, leg cramps, 12/06/18) lactose (Verified Adverse Reaction, Mild, diarrhea, 12/06/18) heparin (Verified Adverse Reaction, Unknown, rectal bleeding, 12/06/18) MARCOS RUIZ MD Dec 06, 2018 15:42
--- NOTE | 2018-12-06 16:14 | REP ---
Chest two views HISTORY: Cough Comparison: 11/13/2018 The lungs are clear. The heart is normal in size. The pulmonary vasculature is normal in appearance. The bony structure is intact. IMPRESSION: No acute disease. Electronically Signed by Aly Radford MD 12/06/2018 04:07 P
--- NOTE | 2018-12-06 16:20 | PHACANCOPD ---
PHARMACY VANCOMYCIN DOSING Pt Demographics Demographics Patient Age:73 , Weight:90.910 , Gender: male Adjusted Body Weight Date: 12/06/18, Adjusted Body Weight: Kg Events Past 24 Hours Events Past 24 Hours: YES: Change in CrCl, Elevation in WBC; NO: Dialysis, Diuretic Therapy, Fever, Pending Diagnostics, Pending Procedures, Other Vancomycin Vancomycin indication: ? osteomyelitis Vancomycin Target Ranges: 15-20 mcg/ml Vancomycin Load Y/N: Yes Load Dose Date Time Vancomycin Load Dose: 1000mg Date: 12/06 Time: ~16:00 in ER Vancomycin Dose Date: 12/07/18. Current Vancomycin Dose: [1g IV q24h @08] Intermittent Dosing?: No Labs Labs Item Value Date Time Erythrocyte Sedimentation Rate 126 mm/hr H 12/06/18 1312 C-Reactive Protein, Quantitative 13.60 MG/DL H 12/06/18 1312 Creatinine 2.62 MG/DL H 12/06/18 1312 White Blood Count 17.7 10^3/uL H 12/06/18 1312 Micro Microbiology 12/06/18 Blood Culture, Received Pending 12/06/18 Blood Culture, Received Pending Creatinine Clearance Date:12/06/18. Creatinine Clearance: [~25 ml/min]. Pending Labs Vanco trough scheduled 12/08 @07:00 Assessment and Plan Maintaining Current Dose?: Yes Reason for dose change: No Dose Change Pharmacist Note Pharmacist Note Date: 12/06/18. Pharmacist note: pt has been started on Zosyn and Vancomycin for possible osteomyelitis. He has not been on vancomycin at our facility in the past. SCr appears to be elevated from his baseline of ~1.8 mg/dl. Inflammatory markers are elevated, blood cultures are pending. He received his first dose of vancomycin 1g IV this afternoon at ~16:00 in the ER, and I have started 1g IV q24h dosing ~16 hours later. I have a trough scheduled before the 3rd dose. We w ill continue to monitor and make adjustments as necessary. Richy Burns Pharm.D. Dec 06, 2018 16:20
--- NOTE | 2018-12-06 16:39 | REP ---
MRI left foot without contrast: History: Infection great toe. Question osteomyelitis. There are no available comparison radiographs. Technique: Axial, coronal, and sagittal imaging planes utilized. T1 and T2-weighted scans were obtained in the usual fashion with and without fat saturation. MRI findings: Cortical and medullary bone signal intensity is normal in the hind foot midfoot as well as in digits two through five. Bone signal intensity is normal in the distal phalanx of the great toe. There is an extensive area of abnormal signal intensity in the distal first metatarsal with medial cortical erosion and some adjacent soft tissue swelling. There is a small zone of low T1 and high T2 signal intensity in the medial aspect of the base of the proximal phalanx of the great toe. There is evidence of an overlying ulcer in the skin at the medial aspect of the great toe. There is some adjacent edema. Impression: Findings consistent with osteomyelitis involving the distal aspect of the first metatarsal and possibly the medial corner of the base of the proximal phalanx of the great toe. There is no overlying skin ulcer evident and there is adjacent edema and some fluid. Electronically Signed by John Lima MD 12/07/2018 09:24 A
[2018-12-06 17:05] VITALS: BP 169/72
--- NOTE | 2018-12-06 17:08 | REP ---
Left lower extremity Duplex Doppler venous ultrasound: Real time compression and duplex Doppler interrogation of the left lower extremity deep venous system is performed. The left common femoral, superficial femoral and popliteal veins are fully compressible with transducer pressure and demonstrate normal spontaneous and phasic flow, without evidence of deep venous thrombosis. Impression: No evidence of deep venous thrombosis of the left lower extremity femoral popliteal venous system. Electronically Signed by Danie Meyers MD 12/06/2018 04:59 P
[2018-12-06] MEDS: NS 1,000 ML IV SCH ×2 (17:30→20:51)
[2018-12-06] MEDS: HumaLOG INSULIN (NovoLOG) PER UNIT SC SCH ×3 (17:30→20:42)
[2018-12-06] MEDS: PIPERACILLIN/TAZOBACTAM SOD 3.375 GM in D5W MINI-BAG PLUS 50 ML IV SCH (18:52)
[2018-12-06] MEDS: FERROUS SULFATE 325MG TAB PO SCH (20:51)
[2018-12-06] MEDS: CARVedilol 12.5 MG TAB PO SCH (20:51)
[2018-12-06 22:00] VITALS: BP 153/72
[2018-12-07] MEDS: BENZONATATE 100 MG CAP PO PRN ×3 (00:04→22:04)
[2018-12-07] MEDS: PIPERACILLIN/TAZOBACTAM SOD 3.375 GM in D5W MINI-BAG PLUS 50 ML IV SCH ×3 (02:30→20:54)
[2018-12-07 06:00] VITALS: BP 156/69
[2018-12-07 06:00] LABS: HEMATOCRIT 26.4 % (42.0-52.0); HEMOGLOBIN 8.7 g/dl (13.5-17.5); PLATELET COUNT, AUTOMATED 271 10^3/uL (150-450); RED BLOOD COUNT 2.64 10^6/uL (4.30-6.10); WHITE BLOOD COUNT 14.9 10^3/uL (4.0-10.0)
[2018-12-07 06:12] LABS: HEMOGLOBIN A1c 8.1 %
[2018-12-07 06:15] LABS: CALCIUM LEVEL 7.9 MG/DL (8.8-10.2); CREATININE FOR GFR 2.5 MG/DL (0.70-1.30); GLOMERULAR FILTRATION RATE 27.2 (>42)
[2018-12-07] MEDS: PANTOPRAZOLE 40MG TAB (PROTONIX) PO SCH (08:06)
[2018-12-07] MEDS: EZETIMIBE 10 MG TAB (ZETIA) PO SCH (08:06)
[2018-12-07] MEDS: CARVedilol 12.5 MG TAB PO SCH ×2 (08:06→22:05)
[2018-12-07] MEDS: VANCOMYCIN HCL 1,000 MG, VIAL MATE ADAPTER 1 EACH in D5W 250 ML IV SCH (08:06)
[2018-12-07] MEDS: FERROUS SULFATE 325MG TAB PO SCH ×2 (08:06→22:04)
[2018-12-07] MEDS: HumaLOG INSULIN (NovoLOG) PER UNIT SC SCH ×4 (08:07→22:05)
[2018-12-07] MEDS: LEVEMIR (INSULIN DETEMIR) 1 UNITS/0.01ML SC SCH ×2 (08:07→22:06)
[2018-12-07] MEDS: NS 1,000 ML IV SCH (08:08)
[2018-12-07] MEDS: SANTYL OINT 30GM TOP SCH (09:06)
[2018-12-07] MEDS: MULTIVITAMINS CHILDREN'S CHEWABLE TABLET PO SCH (09:06)
[2018-12-07] MEDS ORDERED: LIDOCAINE 2% MDV 20 ML VIAL As Ordered ONE ×2 (11:07→14:27)
[2018-12-07] MEDS ORDERED: BUPIVACAINE HCL 0.5% 30 ML VIAL As Ordered ONE (11:07)
--- NOTE | 2018-12-07 13:51 | CR ---
DATE: 12/07/2018 TIME: 1:14 p.m. Chief Complaint: The patient is seen at bedside for evaluation of an infected ulcer first metatarsal area left foot with an ulceration straight to bone. The patient has had this ulcer for several weeks, but since last Monday, it has gotten red and more painful. He went to [facility] [place] and states that the bandage fell off his foot and he did not notice this and the swelling, infection and discharge got worse and he presented to my office yesterday with purulent discharge, extensive erythema and tenderness of his left foot. He was sent to the hospital for admission, MRI testing and probable surgery. He is seen today at bedside. The patient has a bandage on his foot, however, the bandage shows a considerable amount of discharge through the bandage itself. The bandage was removed revealing an ulceration measuring approximately 1 cm x 1 cm with some purulent discharge. The bone is visible in the wound. MRI was reviewed revealing high signal change of the first metatarsal and medial base of the proximal phalanx with some surrounding fluid in the area consistent with osteomyelitis of the first metatarsal phalangeal joint of the left foot. At home medications are calcium carbonate, vitamin D3, carvedilol 25 mg twice a day, vitamin B12 500 mcg daily, ferrous sulfate 325 mg by mouth twice a day, insulin, losartan/hydrochlorothiazide 50/12.5 one by mouth daily, multivitamin, pantoprazole 40 mg daily and ezetimibe 10 mg by mouth daily. The patient's laboratory studies were reviewed. White count on admission 17.6, ESR 126, C-reactive protein 13.6, GFR of 25.7. Past Medical History: Udvvw-Pvzubrjqe-Vsoqc. Coronary artery disease with 6 stents. Carotid stenosis. GI bleed. Past Surgical History: Abdominal bypass and cardiac stents. 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 Plan: The patient is scheduled for a partial first ray amputation with drainage and insertion of antibiotic beads. The wound will also be packed open. We discussed a delayed primary closure over antibiotic beads in three days. His questions were answered. Consent was signed.
[2018-12-07 14:00] VITALS: BP 105/78
[2018-12-07] MEDS: ACETAMINOPHEN TAB 650MG DOSE (2X325MG) PO PRN (14:14)
[2018-12-07] MEDS ORDERED: BUPIVACAINE HCL 0.5% 10 ML VIAL As Ordered ONE (14:27)
--- NOTE | 2018-12-07 15:00 | IPNPDOC ---
Date Seen The patient was seen on 12/07/18. Progress Note SUBJECTIVE: Feeling same today. MRI of foot consistent with osteomyelitis. Continue to have dry cough without sputum. Otherwise no new complaint. Spoke to Dr. Polanco, patient to undergo sx intervention today. Patient had history of Ryenr-Nlwbygidp-Doxdn syndrome therefore we'll need to monitor for arrhythmia with tele. Spoke with cardiology Dr. Frost and reviewed EKG prior to surgery. EKG did not show delta wave and was reviewed by cardiology. Regardless patient will be placed on telemetry for close monitoring. OBJECTIVE PHYSICAL EXAMINATION: VITAL SIGNS: Please see below GENERAL APPEARANCE: Resting comfortably HEENT: Normocephalic, PERRLA, Mucous moist, CARDIOVASCULAR: S1,S2, pulse present, regularly, regular, LUNGS: Equal air entry b/l, no wheezes or crackle, intermittent dry cough ABDOMEN: Soft, BS present, no tenderness, no guarding GENITOURINARY: No Kohler EXTREMITIES: B/L no edema, capillary refill present , left foot dorsal plantar metatarsal lesion 2-3 cm in diameter with redness and swelling affecting the foot but not to his toes and not beyond the ankle SKIN: Warm, No fever NEUROLOGICAL: Cranial nerves grossly intact PSYCHIATRIC: Normal mood and affect for current situation LABORATORY DATA, IMAGING STUDIES, MICROBIOLOGY: Please see below. 73-year-old who was in a few past medical history of Lnljo-Ufymazcdq-Jrdsu, coronary artery disease with 6 stent, cardiac and abdominal bypass, carotid stenosis, previous history of GI bleed who was sent by Dr. Polanco due to worsening of the left foot ulceration. Patient states that he had developed a lesion on his left foot couple of months ago which progressively worsened and followed up with Dr. Polanco as outpatient. Unfortunately for the past 2 days, he overworked his foot as he had chores in his yard. When he followed up with Dr. Polanco today patient's foot had drainage and lesion and wound looked w orse therefore patient was sent to the hospital for further evaluation and treatment for cellulitis and to rule out osteo-myelitis. Patient states that the wound had purulent drainage in the office. Patient denied of any fever, diarrhea, or dysuria. He did have dry cough for 1 week duration. He mentioned that he is not a smoker but used to be a former smoker but does not utilize any inhalers or respiratory therapy. He developed some greenish phlegm and small amount mainly dry cough. Spoke to Dr. Polanco who will evaluate patient in the hospital and recommends MRI of the foot and antibiotic including vancomycin as he suspected Gram- positive organism. Assessment and plan: 73-year-old who was in a few past medical history of Jgzzi-Ezyiniucn-Hrusf, coronary artery disease with 6 stent, cardiac and abdominal bypass, carotid stenosis, previous history of GI bleed who was sent by Dr. Polanco due to worsening of the left foot ulceration. Left foot cellulitis, possible osteomyelitis -MRI of the foot:Findings consistent with osteomyelitis involving the distal aspect of the first metatarsal and possibly the medial corner of the base of the proximal phalanx of the great toe. There is no overlying skin ulcer evident and there is adjacent edema and some fluid. -Empiric antibiotic of Zosyn and vancomycin -Blood culture 2: Gram-positive cocci in chains -Consult with Dr. Polanco (podiatry) -Initial ESR 126, CRP 13.6 -left leg us :neg for dvt Lactic acidosis, leukocytosis -IV fluid -Antibiotics above -Blood culture as above Acute on chronic kidney disease stage III -IV fluid -Hold renal toxic medication -Monitor Diabetes -finger sick monitoring and coverage -Hemoglobin A1c -Patient takes sliding scale of long-acting insulin today he took 60 units due to sugar being in the 200s but just a did not take any. Verify home insulin dosing and resumespoke to pharmacy could not come to a conclusion as to how much patient normally takes of his long-acting insulin. We will start off with 10 units twice a day with parameters and escalate as needed. Cough -Checks x-ray: no acute disease -Respiratory therapy as needed History of Uzlgi-Ihjngcmsg-Tcpdd, coronary artery disease with 6 stent -Resume carvedilol -Resume Nitrostat -Resume Ezetimibe -Patient currently not on aspirin most likely secondary due to history of GI bleed, please follow with the PCP and primary cardiology as outpatient -Telemetry monitoring post surgery for arrhythmias. -EKG prior to sx: Heart rate of 85, sinus with occasional SVC, and as per cardiology no delta wave noted on the EKG. -Cardiology also mentioned that with WPW pt simple rate controlling beta hammad can help assess if tachycardia develops. In rare cases of arrhythmia amiodarone and cardioversion as needed. Cardiology is available if needed. Hypertension -Hold losartan/hydrochlorothiazide -As needed hydralazine History of GI bleed -resume iron supplement, pantoprazole Cardiac abdominal bypass history History of cardiac stenosis DVT prophylaxis with TIMOTHY and SCD once left LE neg for DVT DISPOSITION: [reassess after acute issues resolve]. VS, I&O, 24H, Fishbone Vital Signs/I&O Vital Signs Date Time Temp Pulse Resp B/P (MAP) Pulse Ox O2 Delivery O2 Flow Rate FiO2 12/07/18 08:06 90 156/69 12/07/18 06:00 99.0 93 18 12/06/18 16:54 Room Air I&O- Last 24 Hours up to 6 AM 12/07/18 06:00 Intake Total 2730 ml Output Total 1325 ml Balance 1405 ml Laboratory Data 24H LABS Laboratory Tests 2 12/06/18 17:22: Bedside Glucose (Misc Panel) 74L 12/06/18 17:39: Lactic Acid Followup at 4 Hours 1.1 12/06/18 18:32: Bedside Glucose (Misc Panel) 161H 12/06/18 20:19: Bedside Glucose (Misc Panel) 165H 12/07/18 05:32: Nucleated Red Blood Cells % (auto) 0.0, Anion Gap 7L, Glomerular Filtration Rate 27.2L, Estimated Mean Plasma Glucose 186H, Hemoglobin A1c 8.1, Blood Urea Nitrogen 32H, Creatinine 2.50H, Sodium Level 133L, Potassium Level 4.0, Chloride Level 104, Carbon Dioxide Level 22, Calcium Level 7.9L 12/07/18 12:03: Bedside Glucose (Misc Panel) 174H CBC/BMP Laboratory Tests 12/07/18 05:32 Red Blood Count 2.64 L, Mean Corpuscular Volume 100.0 H, Mean Corpuscular Hemoglobin 33.0, Mean Corpuscular Hemoglobin Concent 33.0, Red Cell Distribution Width 13.9, Calcium Level 7.9 L Microbiology Microbiology 12/06/18 Blood Culture - Preliminary, Resulted 12/06/18 Blood Culture - Preliminary, Resulted MARCOS RUIZ MD Dec 07, 2018 15:00
[2018-12-07] MEDS ORDERED: ROPIvacaine 0.5% 30 ML INJECTION (J2795 PER 1MG) As Ordered ONE (17:42)
[2018-12-07] MEDS ORDERED: VANCOMYCIN HCL 500 MG/10 ML VIAL (J3370) As Ordered ONE (17:48)
[2018-12-07] MEDS ORDERED: MIDAZOLAM INJ 2 MG/2 ML VIAL (J2250) As Ordered ONE (17:50)
[2018-12-07] MEDS ORDERED: fentaNYL 100 MCG/2 ML INJECTION (J3010) As Ordered ONE (17:50)
[2018-12-07] MEDS ORDERED: PROPOFOL 200 MG/20 ML VIAL As Ordered ONE (17:50)
[2018-12-07] MEDS ORDERED: ONDANSETRON 4MG/2ML VIAL (J2405) As Ordered ONE (17:50)
[2018-12-07] MEDS ORDERED: LIDOCAINE 2% INJ 100 MG/5 ML SDV (FOR ANES.) As Ordered ONE (17:50)
[2018-12-07 18:00] VITALS: BP 186/74
[2018-12-07 22:00] VITALS: BP 159/68
[2018-12-08] VITALS (10 sets, daily range): BP systolic 154–174; BP diastolic 63–77
[2018-12-08] MEDS: PIPERACILLIN/TAZOBACTAM SOD 3.375 GM in D5W MINI-BAG PLUS 50 ML IV SCH ×3 (01:10→18:58)
[2018-12-08 07:08] LABS: HEMATOCRIT 25.2 % (42.0-52.0); HEMOGLOBIN 8.3 g/dl (13.5-17.5); MEAN CORPUSCULAR HEMOGLOBIN 32.2 pg (27.0-33.0); MEAN CORPUSCULAR HGB CONC 32.9 g/dl (32.0-36.5); MEAN CORPUSCULAR VOLUME 97.7 fl (80.0-96.0); PLATELET COUNT, AUTOMATED 264 10^3/uL (150-450); RED BLOOD COUNT 2.58 10^6/uL (4.30-6.10)
[2018-12-08 07:29] LABS: CALCIUM LEVEL 7.9 MG/DL (8.8-10.2); CREATININE FOR GFR 2.41 MG/DL (0.70-1.30); GLOMERULAR FILTRATION RATE 28.3 (>42); MB/CK RELATIVE INDEX 0.89 (< OR =4); POTASSIUM SERUM 3.9 MEQ/L (3.5-5.1); TROPONIN I 0.59 NG/ML (< 0.10); VANCOMYCIN LEVEL TROUGH 9.8 UG/ML (10.0-20.0)
[2018-12-08] MEDS: HumaLOG INSULIN (NovoLOG) PER UNIT SC SCH ×4 (07:30→21:36)
[2018-12-08] MEDS: LEVEMIR (INSULIN DETEMIR) 1 UNITS/0.01ML SC SCH ×2 (08:01→21:37)
[2018-12-08] MEDS: PANTOPRAZOLE 40MG TAB (PROTONIX) PO SCH (08:16)
[2018-12-08] MEDS: FERROUS SULFATE 325MG TAB PO SCH ×2 (08:16→21:36)
[2018-12-08] MEDS: VANCOMYCIN HCL 1,000 MG, VIAL MATE ADAPTER 1 EACH in D5W 250 ML IV SCH (08:16)
[2018-12-08] MEDS: EZETIMIBE 10 MG TAB (ZETIA) PO SCH (08:17)
[2018-12-08] MEDS: MULTIVITAMINS CHILDREN'S CHEWABLE TABLET PO SCH (08:18)
[2018-12-08] MEDS: CARVedilol 12.5 MG TAB PO SCH ×2 (08:18→21:36)
[2018-12-08] MEDS: SANTYL OINT 30GM TOP SCH (08:26)
--- NOTE | 2018-12-08 09:07 | PHACANCOPD ---
PHARMACY VANCOMYCIN DOSING Pt Demographics Demographics Patient Age:73 , Weight:90.910 , Gender: male Adjusted Body Weight Date: 12/06/18, Adjusted Body Weight: Kg Vancomycin Vancomycin indication: ? osteomyelitis Vancomycin Target Ranges: 15-20 mcg/ml Vancomycin Load Y/N: Yes Load Dose Date Time Vancomycin Load Dose: 1000mg Date: 12/06 Time: ~16:00 in ER Vancomycin Dose Date: 12/07/18. Current Vancomycin Dose: [1g IV q24h @08] Intermittent Dosing?: No Labs Micro Microbiology 12/06/18 Blood Culture - Preliminary, Resulted 12/06/18 Blood Culture - Preliminary, Resulted Creatinine Clearance Date:12/06/18. Creatinine Clearance: [~25 ml/min]. Pending Labs Vanco trough scheduled 12/08 @07:00 Assessment and Plan Maintaining Current Dose?: No Reason for dose change: Trough too high, Trough too low Pharmacist Note Pharmacist Note 12/08/18: Day #3 IV vancomycin therapy. Trough today resulted at 9.8mcg/ml - drawn prior to the 3rd dose. Scr has improved at 2.41 today from 2.62 on admit. We will provide the patient with a 2g loading dose today, and increase the patient's regimen to 1500mg IV Q24H starting tomorrow - aiming for a goal trough of 15-20mcg/ml. We will continue to monitor renal function and schedule a follow-up trough level accordingly. Date: 12/06/18. Pharmacist note: pt has been started on Zosyn and Vancomycin for possible osteomyelitis. He has not been on vancomycin at our facility in the past. SCr appears to be elevated from his baseline of ~1.8 mg/dl. Inflammatory markers are elevated, blood cultures are pending. He received his first dose of vancomycin 1g IV this afternoon at ~16:00 in the ER, and I have started 1g IV q24h dosing ~16 hours later. I have a trough scheduled before the 3rd dose. We will continue to monitor and make adjustments as necessary. [facility] Dec 08, 2018 09:07
[2018-12-08] MEDS: ACETAMINOPHEN TAB 650MG DOSE (2X325MG) PO PRN (10:36)
--- NOTE | 2018-12-08 11:16 | REP ---
Chest one-view HISTORY: CHF Comparison: 12/06/2018 The lungs are clear. The heart is normal in size. The pulmonary vasculature is normal in appearance. Impression: No acute disease. Electronically Signed by Aly Radford MD 12/08/2018 11:07 A
[2018-12-08] MEDS ORDERED: VANCOMYCIN HCL 1,000 MG, VIAL MATE ADAPTER 1 EACH in D5W 250 ML IV ONE (12:00)
--- NOTE | 2018-12-08 12:25 | ECGEPIP ---
Stationary ECG Study [facility] Test Date: 2018-12-07 Pat Name: LORY WINKLER Department: Room: X7880-34 Gender: M Tub Chucker: NIKA : 1945 Requested By: MARCOS Yusuf Order Number: [id number] Reading MD: Shyam Helton Measurements Intervals Ayer Rate: 85 P: 53 ND: 155 QRS: 41 QRSD: 97 T: 30 QT: 359 QTc: 428 Interpretive Statements SINUS RHYTHM WITH OCCASIONAL SUPRAVENTRICULAR PREMATURE COMPLEXES Electronically Signed On 12-08-2018 12:24:37 EDT by Shyam Helton
--- NOTE | 2018-12-08 12:28 | ECGEPIP ---
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
--- NOTE | 2018-12-08 14:26 | IPNPDOC ---
Date Seen The patient was seen on 12/08/18. Progress Note SUBJECTIVE: Awaiting for surgery this morning. Patient had no breakfast and still has intermittent dry cough this morning. Patient with dry cough but repeat CXR neg for acute disease. Sx yesterday was delayed because pt was taking nitroglycerin for his esophageal spasm. Patient did not have chest pain but troponin was drawn which show slight elevation. Enzyme trended down and cardiology was consult. Dr. García review Echo and repeat EKG. Patient determined to have mod-high risk by cardiology but due to his osteomyelitis and bacteremia likely source from left foot, podiatry is on board for possible surgery. OBJECTIVE PHYSICAL EXAMINATION: VITAL SIGNS: Please see below GENERAL APPEARANCE: Resting HEENT: Normocephalic, PERRLA, Mucous moist, CARDIOVASCULAR: S1,S2, pulse present, regularly, regular, LUNGS: Equal air entry b/l, no wheezes or crackle, intermittent dry cough ABDOMEN: Soft, BS present, no tenderness, no guarding GENITOURINARY: No Kohler EXTREMITIES: B/L no edema, capillary refill present , left foot dorsal plantar metatarsal lesion 2-3 cm in diameter with redness and swelling affecting the foot but not to his toes and not beyond the ankle bandaged SKIN: Warm, No fever NEUROLOGICAL: Cranial nerves grossly intact PSYCHIATRIC: Normal mood and affect for current situation LABORATORY DATA, IMAGING STUDIES, MICROBIOLOGY: Please see below. 73-year-old who was in a few past medical history of Tmngm-Fhqdnzpkd-Ypboi, coronary artery disease with 6 stent, cardiac and abdominal bypass, carotid stenosis, previous history of GI bleed who was sent by Dr. Polanco due to wor sening of the left foot ulceration. Patient states that he had developed a lesion on his left foot couple of months ago which progressively worsened and followed up with Dr. Polanco as outpatient. Unfortunately for the past 2 days, he overworked his foot as he had chores in his yard. When he followed up with Dr. Polanco today patient's foot had drainage and lesion and wound looked worse therefore patient was sent to the hospital for further evaluation and treatment for cellulitis and to rule out osteo-myelitis. Patient states that the wound had purulent drainage in the office. Patient denied of any fever, diarrhea, or dysuria. He did have dry cough for 1 week duration. He mentioned that he is not a smoker but used to be a former smoker but does not utilize any inhalers or respiratory therapy. He developed some greenish phlegm and small amount mainly dry cough. Spoke to Dr. Polanco who will evaluate patient in the hospital and recommends MRI of the foot and antibiotic including vancomycin as he suspected Gram- positive organism. Assessment and plan: 73-year-old who was in a few past medical history of Qjnfk-Zcwbdogym-Iadih, coronary artery disease with 6 stent, cardiac and abdominal bypass, carotid stenosis, previous history of GI bleed who was sent by Dr. Polanco due to worsening of the left foot ulceration. Mri of foot showed osteomyelitis. CXR's showed no acute disease. Sx was delayed initially because pt was taking nitroglycerin for his esophageal spasm. Patient did not have chest pain at the time but troponin was drawn which show slight elevation. Enzyme trended down and cardiology was consult. Dr. García review Echo (per Dr. García: EF nml and no motion wall abnml) and repeat EKG(per dr. 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 Patient determined to have mod-high risk by cardiology but due to his osteomyelitis and bacteremia likely source from left foot, podiatry is on board for possible surgery. Left foot cellulitis, possible osteomyelitis -MRI of the foot:Findings consistent with osteomyelitis involving the distal aspect of the first metatarsal and possibly the medial corner of the base of the proximal phalanx of the great toe. There is no overlying skin ulcer evident and there is adjacent edema and some fluid. -Empiric antibiotic of Zosyn and vancomycin -Blood culture 2: STREPTOCOCCUS GROUP G -Consult with Dr. Polanco (podiatry) -Initial ESR 126, CRP 13.6 -left leg us :neg for dvt -Mod-high risk for sx per cardiology but patient with bacteremia likely source from left foot osteomyelitis. -Echo (per Dr. García: EF nml and no motion wall abnml) and repeat EKG(per dr. 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 Lactic acidosis, leukocytosis -IV fluid -Antibiotics above -Blood culture as above Bacteremia -abx as above -await sensitivity -repeat blood cx pending Positive troponin -hx of A/CKD, bactermia, cardiac hx -ischemic demand -cardiology on board Acute on chronic kidney disease stage III -IV fluid -Hold renal toxic medication -Monitor Diabetes -finger sick monitoring and coverage -Hemoglobin A1c 8.1 -Patient takes sliding scale of long-acting insulin today he took 60 units due to sugar being in the 200s but just a did not take any. Verify home insulin dosing and resumespoke to pharmacy could not come to a conclusion as to how much patient normally takes of his long-acting insulin. We will start off with 10 units twice a day with parameters and escalate as needed. Cough -Checks x-ray: no acute disease -Respiratory therapy as needed History of Zjxvf-Ztgawkklt-Anhtr, coronary artery disease with 6 stent -Resume carvedilol -Resume Nitrostat -Resume Ezetimibe -Patient currently not on aspirin most likely secondary due to history of GI bleed, please follow with the PCP and primary cardiology as outpatient -Telemetry monitoring post surgery for arrhythmias. -EKG prior to sx: Heart rate of 85, sinus with occasional SVC, and as per cardiology no delta wave noted on the EKG. -Cardiology also mentioned that with WPW pt simple rate controlling beta hammad can help assess if tachycardia develops. In rare cases of arrhythmia amiodarone and cardioversion as needed. Cardiology is available if needed. -Mod-high risk for sx per cardiology but patient with bacteremia likely source from left foot osteomyelitis. -Echo (per Dr. García: EF nml and no motion wall abnml) and repeat EKG(per dr. 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 Hypertension -Hold losartan/hydrochlorothiazide -As needed hydralazine History of GI bleed -resume iron supplement, pantoprazole Cardiac abdominal bypass history History of cardiac stenosis DVT prophylaxis with TIMOTHY and SCD once left LE neg for DVT DISPOSITION: [reassess after acute issues resolve]. . VS, I&O, 24H, Fishbone Vital Signs/I&O Vital Signs Date Time Temp Pulse Resp B/P (MAP) Pulse Ox O2 Delivery O2 Flow Rate FiO2 12/08/18 09:30 97.1 110 29 166/63 (97) 95 12/06/18 16:54 Room Air I&O- Last 24 Hours up to 6 AM 12/08/18 06:00 Intake Total 940 ml Output Total 1225 ml Balance -285 ml Laboratory Data 24H LABS Laboratory Tests 2 12/07/18 15:57: Bedside Glucose (Misc Panel) 133H 12/07/18 18:22: Troponin I 0.71H 12/07/18 19:39: Bedside Glucose (Misc Panel) 110 12/07/18 21:47: Bedside Glucose (Misc Panel) 207H 12/08/18 06:51: Nucleated Red Blood Cells % (auto) 0.0, Anion Gap 6L, Glomerular Filtration Rate 28.3L, Blood Urea Nitrogen 31H, Creatinine 2.41H, Sodium Level 134L, Potassium Level 3.9, Chloride Level 106, Carbon Dioxide Level 22, Calcium Level 7.9L, Total Creatine Kinase 246, Creatine Kinase MB 2.0, Creatine Kinase MB Relative Index 0.89, Troponin I 0.59H, Vancomycin Level Trough 9.8L 12/08/18 11:52: Bedside Glucose (Misc Panel) 153H CBC/BMP Laboratory Tests 12/08/18 06:51 Red Blood Count 2.58 L, Mean Corpuscular Volume 97.7 H, Mean Corpuscular Hemoglobin 32.2, Mean Corpuscular Hemoglobin Concent 32.9, Red Cell Distribution Width 13.8, Calcium Level 7.9 L, Total Creatine Kinase 246 Microbiology Microbiology 12/06/18 Blood Culture - Preliminary, Resulted Streptococcus Group G 12/06/18 Blood Culture - Preliminary, Resulted Streptococcus Group G MARCOS RUIZ MD Dec 08, 2018 14:26
--- NOTE | 2018-12-08 16:28 | CR ---
DATE OF CONSULTATION: 12/08/2018 REFERRING PROVIDER: Amber Patterson MD PRIMARY BRIDGE WORKER: Dr. De Leon in [place], [place] SUPERVISOR SKI PRODUCTION: Dr. Guevara CREMATORY ATTENDANT: Dr. Antoni Polanco HISTORY OF PRESENTING ILLNESS: A 73-year-old male with an extensive history of peripheral arterial disease (PAD) and coronary artery disease (CAD), who was admitted on 12/06/2018, referred by his printer's devil because he was found to have an infected 1st metatarsal area involving the left foot with some ulceration going into the bone. Further workup, MRI of the left foot, revealed findings consistent with osteomyelitis involving the distal aspect of the 1st metatarsal and possible medial area of the proximal phalanx of the great toe. The management was to proceed with surgery, but he was found to have an abnormal electrocardiogram (EKG), as well as an abnormal serum troponin, and a cardiology consult was called. When I saw Mr. Jakob Moore in the floor, he was sitting up in bed, in no acute distress at rest but appears to be mild shortness of breath. This is my assessment, but he denies that. He denies any chest pain, palpitations, pedal edema, orthopnea, recent episode of syncope or near syncope. He is able to walk one flight of stairs without any chest pain or chest discomfort or chest heaviness. He sees his environmental science instructor regularly, and the plan was to proceed with an echocardiogram in the near future. He does not know his heart function/left ventricular ejection fraction (LVEF). He has a cough, and he thinks he is coughing a little bit more since in the hospital. There is no report of hemoptysis or fever. He has no focal manifestation. There is no nausea, vomiting, diarrhea, melena, or hematemesis. He has a past medical history positive for premature coronary artery disease and had his first stent in his thirties; and at that time, he was having frequent heartburn. Prior to that, he was diagnosed with Zyfdn-Jqqwwjfga-Ltxem syndrome. He has had multiple coronary interventions, and he stated he has six stents. As mentioned above, he does not know his LVEF, and he is not sure when his last stress test was done. He also has a history of peripheral artery disease with at the level of the left internal carotid artery that is being monitored by vascular surgeon in [place]. 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 There is no history of significant valvular heart disease that he is aware of. No history of atrial fibrillation and no history of transient ischemic attack (TIA)/cerebrovascular accident (CVA). There is no known history of cardiomyopathy or sudden cardiac . He denies thyroid disorders. He does have a history of recurrent gastrointestinal (GI) bleeding associated with aspirin therapy and anticoagulation therapy and has had extensive workup done, such as gastroscopy and colonoscopy, as well as capsule endoscopy. PAST SURGICAL HISTORY: Is positive for gastric bypass for overweight and difficult to control diabetes mellitus. MEDICATIONS AT HOME: - carvedilol 25 mg by mouth twice a day - Zetia 10 mg by mouth daily - losartan/hydrochlorothiazide 50/12.5 mg one tablet by mouth daily - pantoprazole 40 mg by mouth daily - multivitamins one tablet by mouth daily - ferrous sulfate 325 mg by mouth twice a day - insulin glargine as needed - vitamin D 5000 unit capsules and two capsules daily - calcium carbonate/vitamin D one by mouth twice a day - He is on collagenase clostridium/Santyl 30 gram ointment applied daily. - also on nitroglycerin sublingual as needed for chest pain CURRENT MEDICATIONS: - vancomycin - Santyl one dose daily applied to the affected area - multivitamins tablets by mouth daily - pantoprazole 40 mg by mouth daily - Zetia 10 mg by mouth daily - Levemir 10 units subcutaneous twice a day - Tessalon Perles 100 mg by mouth three times a day as needed - carvedilol 25 mg by mouth twice a day - ferrous sulfate 325 mg by mouth twice a day - insulin lispro - piperacillin - also on glucose tablet as well as glucagon and D50 as needed for episode of hypoglycemia - nitroglycerin sublingual 0.4 mg as needed for chest pain - hydralazine 10 mg by mouth every 8 hours as needed for blood pressure greater than 160 - Tylenol 650 mg every 4 hours as needed for pain or fever - milk of magnesia 30 mL by mouth daily as needed for constipation - DuoNeb every 2 hours as needed for shortness of breath and wheezing FAMILY HISTORY: Is positive for coronary artery disease and diabetes mellitus. SOCIAL HISTORY: The patient lives with his and is a former smoker and had stopped many years ago. There is no history of illicit drugs or ethyl alcohol (EtOH) abuse. ALLERGIES: He has multiple allergies to ATORVASTATIN, ROSUVASTATIN and had developed muscle pain with them. He also has developed side effects to PIOGLITAZONE. There is report of allergies to NICOTINE, HEPARIN, LACTOSE that caused diarrhea. HEPARIN caused rectal bleed. PLAVIX/ CLOPIDOGREL also caused rectal bleed, as well as ASPIRIN. PHYSICAL EXAMINATION: The patient is alert and oriented, in no acute distress at rest, and his last vital signs earlier today revealed a blood pressure of 169/79 with a pulse of 77, respiration 24, and his maximum temperature is 98.7 degrees Fahrenheit with an oxygen saturation of 95%. Examination of the head: Atraumatic. Neck: Is supple and no jugular venous distention (JVD) appreciated while sitting up. Bilateral carotid bruits heard, more on the left than the right. The lungs revealed minimal crackles at the bases but no wheezing. The heart examination revealed irregular heart rhythm without gallops. The point of maximal impulse (PMI) is slightly displaced inferiorly. There was no rub. There is a systolic murmur grade 2/6 over the precordium and louder at the lower left sternal border and at the apex with some minimal radiation to the axilla. Abdomen: Soft and nontender and bowel sounds active. Extremities: Revealed no pedal edema noted on the right lower extremity. Peripheral pulses, right dorsalis pedis was palpated. Neurological examination: Is negative for focal deficit. LABORATORIES: Basic metabolic profile (BMP) done today revealed a sodium of 134, potassium 3.9, chloride 106, CO2 22, BUN 31, creatinine 2.4, GFR 28.3, and fasting glucose 120. Serum calcium is 7.9. Serum troponin between yesterday and today was 0.71 and 0.59. This is #1 and #2. Serum hemoglobin A1c is 8.1. BUN and creatinine on admission were 32 and 2.5, respectively. Complete blood count (CBC) revealed a WBC of 11.0, hemoglobin 8.3, hematocrit 25.2, and platelet 264,000. Chest x-ray on admission revealed a normal study. Venous ultrasound of the left lower extremity was negative for deep venous thrombosis (DVT). Electrocardiogram (EKG) done this morning revealed normal sinus rhythm with findings possible related with prior inferior or posterior infarct. The CO interval seems to be normal, but there may be minimal delta waves noted. This manifestation of a prior inferior posterior wall infarct noted in the EKG may also be related to his history of Hbjno-Rtocedjrj-Zrkfe syndrome. IMPRESSION: 1. A 73-year-old male with extensive cardiac history needs surgery for osteomyelitis at the level of the left big toe. He denies any chest pain, and he denies any shortness of breath but appeared to minimally short of breath when I was talking with him, and his physical examination revealed minimal crackles at the bases. His chest x-ray on admission was reported as normal. He is active, and he goes up and down the stairs without shortness of breath or chest pain or chest discomfort or palpitations. He is going for a low-risk surgery; but in view of his history, he is probably at least moderate risk for a cardiac event, and this was discussed with him. He cannot take a statin and also has a problem with aspirin therapy and anticoagulation therapy, GI bleed. This was discussed with him, as well as his . He is willing to proceed with the surgery and having . He will have a at once (STAT) chest x-ray, and it will be reviewed. He also will have a STAT echocardiogram that also will be reviewed. He will continue the beta hammad, and he will started on long-acting nitrate. Fluid overload should be avoided, and he will need cardiac monitoring. He also will need DVT prophylaxis while in the hospital. He is not willing to start any anticoagulation therapy or any aspirin therapy at this present time. I will continue to discuss that with him. He also should try another statin in pravastatin, or Livalo might be a good choice for him. 2. History of coronary artery disease with multiple percutaneous transluminal coronary angioplasty/stents. LVEF is unknown, and this is being addressed with an echocardiogram. 3. Hypertension, mildly elevated today. Will monitor him after the surgery. 4. History of hyperlipidemia. As mentioned above, I will discuss with him about trying a different statin. 5. History of diabetes mellitus. This is being addressed. 6. History of chronic kidney disease, and he sees nephrology in [facility], Dr. Guevara's office. 7. History of Roubz-Onaabfzvk-Nxaba syndrome, and the patient has been asymptomatic for a long time. It was a pleasure to participate in the care of . Jakob Moore for his underlying cardiac condition. I will continue to monitor him along with you while in the hospital. The case was discussed with Dr. Patterson. I also will discuss with Dr. Polanco after reviewing the chest x-ray and the echocardiogram. ADDENDUM: Chest x-ray done stat today revealed no manifestation of heart failure. Echocardiogram was done and it revealed a normal left ventricular ejection fraction (LVEF) estimated at 65-70%, mild to moderate mitral regurgitation. 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 He may proceed as scheduled with the surgery and Dr. Patterson was informed. Dr. Polanco will also be informed. He will be started on long-acting nitrate. Will keep him on telemetry and I will continue to monitor him along with you while he is in the hospital. Addendum dictated: 12/08/2018 1203 Addendum transcribed: 12/08/2018 1358 dilma
[2018-12-08] MEDS ORDERED: LIDOCAINE 2% MDV 20 ML VIAL As Ordered ONE (16:57)
[2018-12-08] MEDS ORDERED: BUPIVACAINE HCL 0.5% 30 ML VIAL As Ordered ONE (16:57)
[2018-12-08] MEDS ORDERED: VANCOMYCIN HCL 500 MG/10 ML VIAL (J3370) As Ordered ONE (16:59)
[2018-12-08] MEDS ORDERED: ROPIvacaine 0.5% 30 ML INJECTION (J2795 PER 1MG) As Ordered ONE (17:29)
[2018-12-08] MEDS ORDERED: fentaNYL 100 MCG/2 ML INJECTION (J3010) As Ordered ONE (17:35)
[2018-12-08] MEDS ORDERED: PROPOFOL 200 MG/20 ML VIAL As Ordered ONE (17:35)
[2018-12-08] MEDS ORDERED: MIDAZOLAM INJ 2 MG/2 ML VIAL (J2250) As Ordered ONE (17:35)
[2018-12-08] MEDS ORDERED: ONDANSETRON 4MG/2ML VIAL (J2405) IV PRN (18:45)
[2018-12-08] MEDS ORDERED: PERCOCET 5MG/325MG TAB PO PRN (18:45)
[2018-12-08] MEDS ORDERED: LR 1,000 ML IV SCH (18:45)
[2018-12-08] MEDS ORDERED: fentaNYL 100 MCG/2 ML INJECTION (J3010) IV PRN (18:45)
[2018-12-08] MEDS ORDERED: HYDROMORPHONE HCL 0.5 MG/ 0.5 ML SYRINGE (J1170 PER 1) IV PRN (18:45)
[2018-12-08] MEDS: BENZONATATE 100 MG CAP PO PRN (19:03)
[2018-12-08] MEDS: ISOSORBIDE MON. (IMDUR) 30 MG XR TAB PO SCH (21:35)
[2018-12-09] MEDS: PIPERACILLIN/TAZOBACTAM SOD 3.375 GM in D5W MINI-BAG PLUS 50 ML IV SCH ×2 (00:55→11:50)
[2018-12-09] MEDS: BENZONATATE 100 MG CAP PO PRN ×2 (03:12→13:43)
[2018-12-09 03:55] VITALS: BP 156/68
[2018-12-09 06:28] LABS: HEMATOCRIT 23.9 % (42.0-52.0); HEMOGLOBIN 7.7 g/dl (13.5-17.5); MEAN CORPUSCULAR HEMOGLOBIN 31.4 pg (27.0-33.0); MEAN CORPUSCULAR HGB CONC 32.2 g/dl (32.0-36.5); MEAN CORPUSCULAR VOLUME 97.6 fl (80.0-96.0); PLATELET COUNT, AUTOMATED 275 10^3/uL (150-450); RED BLOOD COUNT 2.45 10^6/uL (4.30-6.10); WHITE BLOOD COUNT 10.5 10^3/uL (4.0-10.0)
[2018-12-09] MEDS: ACETAMINOPHEN TAB 650MG DOSE (2X325MG) PO PRN (06:33)
[2018-12-09 06:49] LABS: CALCIUM LEVEL 7.9 MG/DL (8.8-10.2); CREATININE FOR GFR 2.39 MG/DL (0.70-1.30); GLOMERULAR FILTRATION RATE 28.6 (>42); MAGNESIUM LEVEL 1.9 MG/DL (1.8-2.4)
--- NOTE | 2018-12-09 07:56 | ECHO ---
DATE OF PROCEDURE: 12/08/2018 REFERRING PROVIDER: Dr. Harpal García PATIENT LOCATION: Room 4220 REASON FOR ECHOCARDIOGRAM: Abnormal EKG, preop evaluation, abnormal troponin. 2D MEASUREMENT: IVS - 1.1 cm LV - 4.5 cm LVPW - 1.2 cm LA - 4.3 cm Aorta - 3.1 cm IVC - 2.0 cm DOPPLER MEASUREMENT: Peak velocity across the aortic valve - 1.5 m/s Peak velocity across the LVOT - 1.1 m/s Mitral E 1.4, Mitral A - 0.91 with a ratio of 1.5 Maximum tricuspid valve velocity - 3.2 m/s 2D COMMENTS: 1. Normal left ventricular size, wall thickness, and normal global left ventricular systolic function. The estimated left ventricular ejection fraction is 65-70%. 2. Mildly enlarged left atrium. The right atrium maybe minimally enlarged in limited views. Normal right ventricle. 3. The atrial septum appear to be normal without evidence of defect or shunt. 4. Normal aortic root. 5. No pericardial effusion seen. 6. Mildly calcified aortic valve with normal leaflet excursion. The mitral valve, the tricuspid valve, and the pulmonic valve appear to be normal. The proximal pulmonary artery branches also appear to be normal in size. 7. The inferior vena cava is borderline enlarged. DOPPLER: It detects mild aortic regurgitation, mild to moderate mitral regurgitation, mild to moderate tricuspid regurgitation. The calculated pulmonary artery systolic pressure varies between 40-50 mmHg. Trace pulmonic regurgitation also detected. Abnormal relaxation pattern was noted across the mitral valve annulus consistent with some features of left ventricular diastolic dysfunction, LV ETP might be elevated. IMPRESSION: 1. Normal global left ventricular systolic function. There are some features of left ventricular diastolic dysfunction, grade 2. 2. Aortic valve sclerosis with mild aortic regurgitation but no aortic stenosis. 3. Mild mitral regurgitation with mildly enlarged left atrium. A dilated left atrium is most likely related to the underlying left ventricular diastolic dysfunction because there is no significant mitral regurgitation. 4. Mild to moderate mitral regurgitation with a mildly dilated left atrium. 5. Mild to moderate tricuspid regurgitation with moderate pulmonary hypertension. 6. Trace pulmonic regurgitation. MTDD
[2018-12-09 08:00] VITALS: BP 166/72
[2018-12-09] MEDS: LEVEMIR (INSULIN DETEMIR) 1 UNITS/0.01ML SC SCH ×2 (08:29→20:48)
[2018-12-09] MEDS: SANTYL OINT 30GM TOP SCH (08:29)
[2018-12-09] MEDS: VANCOMYCIN HCL 1,000 MG, VIAL MATE ADAPTER 1 EACH in D5W 250 ML IV SCH (08:29)
[2018-12-09] MEDS: MULTIVITAMINS CHILDREN'S CHEWABLE TABLET PO SCH (08:30)
[2018-12-09] MEDS: FERROUS SULFATE 325MG TAB PO SCH ×2 (08:30→20:47)
[2018-12-09] MEDS: CARVedilol 12.5 MG TAB PO SCH ×2 (08:30→20:47)
[2018-12-09] MEDS: PANTOPRAZOLE 40MG TAB (PROTONIX) PO SCH (08:31)
[2018-12-09] MEDS: EZETIMIBE 10 MG TAB (ZETIA) PO SCH (08:31)
[2018-12-09] MEDS: HumaLOG INSULIN (NovoLOG) PER UNIT SC SCH ×4 (08:35→20:47)
--- NOTE | 2018-12-09 08:35 | PHACANCOPD ---
PHARMACY VANCOMYCIN DOSING Pt Demographics Demographics Patient Age:73 , Weight:90.910 , Gender: male Adjusted Body Weight Date: 12/06/18, Adjusted Body Weight: Kg Vancomycin Vancomycin indication: ? osteomyelitis Vancomycin Target Ranges: 15-20 mcg/ml Vancomycin Load Y/N: Yes Load Dose Date Time Vancomycin Load Dose: 1000mg Date: 12/06 Time: ~16:00 in ER Vancomycin Dose Date: 12/07/18. Current Vancomycin Dose: [1g IV q24h @08] Intermittent Dosing?: No Labs Micro Microbiology 12/08/18 Blood Culture, Received Pending 12/06/18 Blood Culture - Final, Complete Streptococcus Group G 12/06/18 Blood Culture - Final, Complete Streptococcus Group G 12/08/18 Surgical Biopsy Culture, Received Pending 12/08/18 Anaerobic Culture, Received Pending 12/08/18 Surgical Biopsy Culture, Received Pending 12/08/18 Anaerobic Culture, Received Pending Creatinine Clearance Date:12/06/18. Creatinine Clearance: [~25 ml/min]. Pending Labs Vanco trough scheduled 12/08 @07:00 Assessment and Plan Maintaining Current Dose?: Yes Reason for dose change: No Dose Change Pharmacist Note Pharmacist Note 12/09/18: Day #4 IV vancomycin therapy. Scr continues to improve at 2.39 today from 2.62 at start of therapy. BUN remains stable. We will continue the patient on his newly increased regimen of 1500mg IV Q24H and schedule a follow-up trough level to be drawn tomorrow, 12/10/18, at 0700. We will continue to monitor and make further dose adjustments if needed. 12/08/18: Day #3 IV vancomycin therapy. Trough today resulted at 9.8mcg/ml - drawn prior to the 3rd dose. Scr has improved at 2.41 today from 2.62 on admit. We will provide the patient with a 2g loading dose today, and increase the patient's regimen to 1500mg IV Q24H starting tomorrow - aiming for a goal trough of 15-20mcg/ml. We will continue to monitor renal function and schedule a follow-up trough level accordingly. Date: 12/06/18. Pharmacist note: pt has been started on Zosyn and Vancomycin for possible osteomyelitis. He has not been on vancomycin at our facility in the past. SCr appears to be elevated from his baseline of ~1.8 mg/dl. Inflammatory markers are elevated, blood cultures are pending. He received his first dose of vancomycin 1g IV this afternoon at ~16:00 in the ER, and I have started 1g IV q24h dosing ~16 hours later. I have a trough scheduled before the 3rd dose. We w ill continue to monitor and make adjustments as necessary. [facility] Dec 09, 2018 08:35
[2018-12-09] MEDS ORDERED: VANCOMYCIN HCL 500 MG in D5W MINI-BAG PLUS 100 ML IV SCH (09:00)
[2018-12-09] MEDS ORDERED: MORPHINE 4 MG/ML 1ML VIAL/SYRINGE (J2270) IV PRN (09:15)
[2018-12-09 10:00] VITALS: BP 166/74
[2018-12-09] MEDS: PERCOCET 5MG/325MG TAB PO PRN ×3 (10:29→23:37)
--- NOTE | 2018-12-09 13:35 | IPNPDOC ---
Date Seen The patient was seen on 12/09/18. Progress Note SUBJECTIVE: Patient with pain after surgery. PT as per Podiatry. Not short of breath. Eating breakfast without difficulty. s/p echo by cardiology yesterday. Positive organism sensitive to clindamycin. OBJECTIVE PHYSICAL EXAMINATION: VITAL SIGNS: Please see below GENERAL APPEARANCE: Resting HEENT: Normocephalic, PERRLA, Mucous moist, CARDIOVASCULAR: S1,S2, pulse present, regularly, regular, LUNGS: Equal air entry b/l, no wheezes or crackle, intermittent dry cough ABDOMEN: Soft, BS present, no tenderness, no guarding GENITOURINARY: No Kohler EXTREMITIES: patient underwent left foot sx 12/08/18. SKIN: Warm, No fever NEUROLOGICAL: Cranial nerves grossly intact PSYCHIATRIC: Normal mood and affect for current situation LABORATORY DATA, IMAGING STUDIES, MICROBIOLOGY: Please see below. 73-year-old who was in a few past medical history of Mtbuv-Tqjxguuls-Rwkmf, coronary artery disease with 6 stent, cardiac and abdominal bypass, carotid stenosis, previous history of GI bleed who was sent by Dr. Polanco due to worsening of the left foot ulceration. Patient states that he had developed a lesion on his left foot couple of months ago which progressively worsened and followed up with Dr. Polanco as outpatient. Unfortunately for the past 2 days, he overworked his foot as he had chores in his yard. When he followed up with Dr. Polanco today patient's foot had drainage and lesion and wound looked worse therefore patient was sent to the hospital for further evaluation and treatment for cellulitis and to rule out osteo-myelitis. Patient states that the wound had purulent drainage in the office. Patient denied of any fever, diarrhea, or dysuria. He did have dry cough for 1 week duration. He mentioned that he is not a smoker but used to be a former smoker but does not utilize any inhalers or respiratory therapy. He developed some greenish phlegm and small amount mainly dry cough. Spoke to Dr. Polanco who will evaluate patient in the hospital and recommends MRI of the foot and antibiotic including vancomycin as he suspected Gram- positive organism. Assessment and plan: 73-year-old who was in a few past medical history of Tmhtu-Hlsfkrorn-Dwunz, coronary artery disease with 6 stent, cardiac and abdominal bypass, carotid stenosis, previous history of GI bleed who was sent by Dr. Polanco due to worsening of the left foot ulceration. Mri of foot showed osteomyelitis. CXR's showed no acute disease. Sx was delayed initially because pt was taking nitroglycerin for his esophageal spasm. Patient did not have chest pain at the time but troponin was drawn which show slight elevation. Enzyme trended down and cardiology was consult. Dr. García review Echo (per Dr. García: EF nml and no motion wall abnml) and repeat EKG(per dr. 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 Patient determined to have mod-high risk by cardiology but due to his osteomyelitis and bacteremia likely source from left foot, podiatry is on board and patient underwent left foot sx 12/08/18. Organism as mentioned below. Left foot cellulitis, possible osteomyelitis -MRI of the foot:Findings consistent with osteomyelitis involving the distal aspect of the first metatarsal and possibly the medial corner of the base of the proximal phalanx of the great toe. There is no overlying skin ulcer evident and there is adjacent edema and some fluid. -Empiric antibiotic of Zosyn and vancomycin -Blood culture 2: STREPTOCOCCUS GROUP G sensitive to clindamycin, switch abx to clindamycin -Surgical biopsy: STREPTOCOCCUS GROUP G -Surgical culture: pending -Consult with Dr. Polanco (podiatry) -Initial ESR 126, CRP 13.6 -left leg us :neg for dvt -Mod-high risk for sx per cardiology but patient with bacteremia likely source from left foot osteomyelitis. -Echo (per Dr. García: EF nml and no motion wall abnml) and repeat EKG(per dr. 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 Lactic acidosis, leukocytosis -IV fluid Bacteremia -abx as above -repeat blood cx pending Positive troponin -hx of A/CKD, bactermia, cardiac hx -ischemic demand -defer management to cardiology:hx GI bleed thus refused anticoagulant. Rec another statin in pravastatin, or Livalo might be a good choice for him. Continue B+hammad and long acting nitrates Acute on chronic kidney disease stage III -IV fluid -Hold renal toxic medication -Monitor -F/u with Dr. Baugh as outpatient Diabetes -finger sick monitoring and coverage -Hemoglobin A1c 8.1 -Patient takes sliding scale of long-acting insulin today he took 60 units due to sugar being in the 200s but just a did not take any. Verify home insulin dosing and resumespoke to pharmacy could not come to a conclusion as to how much patient normally takes of his long-acting insulin. We will start off with 10 units twice a day with parameters and escalate as needed. Cough -Checks x-ray: no acute disease -Respiratory therapy as needed History of Qxodv-Svftwynnw-Vipvz, coronary artery disease with 6 stent -Resume carvedilol -Resume Nitrostat -Resume Ezetimibe -Patient currently not on aspirin most likely secondary due to history of GI bleed, please follow with the PCP and primary cardiology as outpatient -Telemetry monitoring post surgery for arrhythmias. -EKG prior to sx: Heart rate of 85, sinus with occasional SVC, and as per cardiology no delta wave noted on the EKG. -Cardiology also mentioned that with WPW pt simple rate controlling beta hammad can help assess if tachycardia develops. In rare cases of arrhythmia amiodarone and cardioversion as needed. Cardiology is available if needed. -Mod-high risk for sx per cardiology but patient with bacteremia likely source from left foot osteomyelitis. -Echo (per Dr. García: EF nml and no motion wall abnml) and repeat EKG(per dr. 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 Hypertension -Carvedilol, losartan -Hold hydrochlorothiazide -As needed hydralazine History of GI bleed -resume iron supplement, pantoprazole Cardiac abdominal bypass history History of cardiac stenosis DVT prophylaxis with TIMOTHY and SCD once left LE neg for DVT Echo:1. Normal global left ventricular systolic function. There are some features of left ventricular diastolic dysfunction, grade 2. 2. Aortic valve sclerosis with mild aortic regurgitation but no aortic stenosis. 3. Mild mitral regurgitation with mildly enlarged left atrium. A dilated left atrium is most likely related to the underlying left ventricular diastolic dysfunction because there is no significant mitral regurgitation. 4. Mild to moderate mitral regurgitation with a mildly dilated left atrium. 5. Mild to moderate tricuspid regurgitation with moderate pulmonary hypertension. DISPOSITION: [reassess after acute issues resolve]. VS, I&O, 24H, Fishbone Vital Signs/I&O Vital Signs Date Time Temp Pulse Resp B/P (MAP) Pulse Ox O2 Delivery O2 Flow Rate FiO2 12/09/18 10:59 18 12/09/18 10:00 97.9 70 166/74 (104) 100 12/06/18 16:54 Room Air I&O- Last 24 Hours up to 6 AM 12/09/18 05:59 Intake Total 1380 ml Output Total 850 ml Balance 530 ml Laboratory Data 24H LABS Laboratory Tests 2 12/08/18 16:16: Bedside Glucose (Misc Panel) 152H 12/08/18 18:41: Bedside Glucose (Misc Panel) 129H 12/08/18 20:47: Bedside Glucose (Misc Panel) 259H 12/09/18 05:55: Nucleated Red Blood Cells % (auto) 0.0, Anion Gap 4L, Glomerular Filtration Rate 28.6L, Blood Urea Nitrogen 30H, Creatinine 2.39H, Sodium Level 134L, Potassium Level 4.0, Chloride Level 105, Carbon Dioxide Level 25, Calcium Level 7.9L, Magnesium Level 1.9 12/09/18 11:49: Bedside Glucose (Misc Panel) 231H CBC/BMP Laboratory Tests 12/09/18 05:55 Red Blood Count 2.45 L, Mean Corpuscular Volume 97.6 H, Mean Corpuscular Hemoglobin 31.4, Mean Corpuscular Hemoglobin Concent 32.2, Red Cell Distribution Width 13.9, Calcium Level 7.9 L Microbiology Microbiology 12/08/18 Blood Culture, Received Pending 12/06/18 Blood Culture - Final, Complete Streptococcus Group G 12/06/18 Blood Culture - Final, Complete Streptococcus Group G 12/08/18 Surgical Biopsy Culture - Preliminary, Resulted Streptococcus Group G 12/08/18 Anaerobic Culture, Resulted Pending 12/08/18 Surgical Biopsy Culture, Received Pending 12/08/18 Anaerobic Culture, Received Pending MARCOS RUIZ MD Dec 09, 2018 13:35
[2018-12-09 14:00] VITALS: BP 140/52
[2018-12-09] MEDS ORDERED: CLINDAMYCIN 600 MG in APPROPRIATE DILUENT 1 EA IV SCH (14:00)
[2018-12-09] MEDS: CLINDAMYCIN 600 MG in APPROPRIATE DILUENT 1 EA IV SCH ×2 (17:53→23:36)
[2018-12-09] MEDS: ISOSORBIDE MON. (IMDUR) 30 MG XR TAB PO SCH (20:46)
[2018-12-09 22:00] VITALS: BP 132/58
[2018-12-10 02:00] VITALS: BP 122/62
[2018-12-10] MEDS: CLINDAMYCIN 600 MG in APPROPRIATE DILUENT 1 EA IV SCH ×3 (05:58→17:17)
[2018-12-10 06:00] VITALS: BP 148/64
[2018-12-10 06:35] LABS: HEMATOCRIT 24.7 % (42.0-52.0); HEMOGLOBIN 8.1 g/dl (13.5-17.5); MEAN CORPUSCULAR HEMOGLOBIN 32.4 pg (27.0-33.0); MEAN CORPUSCULAR HGB CONC 32.8 g/dl (32.0-36.5); MEAN CORPUSCULAR VOLUME 98.8 fl (80.0-96.0); PLATELET COUNT, AUTOMATED 293 10^3/uL (150-450); WHITE BLOOD COUNT 10.1 10^3/uL (4.0-10.0)
--- NOTE | 2018-12-10 06:50 | IPN ---
DATE OF SERVICE: 12/09/2018 Mr. Jakob Moore was seen early this morning, he was sitting in the chair in no acute distress at rest. He was initially seen yesterday as a preop evaluation, he needed surgery on his left big toe for osteomyelitis. He was found initially to have abnormal serum troponin and he has an extensive history of peripheral artery disease and coronary artery disease (CAD). His surgery was a low risk surgery and he was cleared. Prior to that, he had an echocardiogram done and it did reveal a normal global left ventricular systolic function. 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 This morning, he stated he is doing fine. There is no report of chest pain, or shortness of breath, or palpitations. His was at the bedside. He was started yesterday on a long acting nitrate. His losartan has been on hold. There is no report of bleeding. On physical examination, the patient is alert and oriented, in no acute distress at rest and his most recent vital signs revealed a blood pressure of 166/74 with a pulse of 70, respirations 18-20 and his maximum temperature is 97.9 degrees Fahrenheit with an oxygen saturation of 100% on room air. Examination of the head atraumatic. The lungs were clear bilaterally on auscultation without any wheezing or crackles. The heart examination revealed irregular heart sounds without gallops. The PMI is not displaced. There is no rub. Abdomen is unremarkable. Right lower extremity reveals no pedal edema. Dressing noted on the left lower extremity, left foot. LABS: CBC done today revealed a WBC of 10.5, hemoglobin 7.3, hematocrit 23.9, and platelets 275,000. BMP revealed a sodium of 134, potassium 4.0, chloride 105, CO2 30, BUN 2.39, GFR 28.6 and fasting glucose 144 with a calcium of 7.9. Mr. Jakob Moore is stable from a cardiac point of view. It seems that the plan is to proceed with repeat surgery sometime this coming Monday with Dr. Polanco. He should be able to do well and on that day, we can hold the losartan. Today, it was restarted because of his uncontrolled systolic hypertension. The hydrochlorothiazide was discontinued in view of his underlying chronic kidney disease. He will continue with his other cardiac medications. I have discussed with him about starting a new statin and he willing to try that and that can be done as an outpatient. It was a pleasure to participate in the are of Mr. Jakob Moore for his underlying cardiac condition. He appears to be stable from a cardiac point of view. I will continue to monitor him along with you as needed while in the hospital. He has manifested the desire to come to the office for follow-up on his cardiac care because he lives in town and it is a long drive for him to go to [place].
[2018-12-10 06:53] LABS: CALCIUM LEVEL 8.2 MG/DL (8.8-10.2); CREATININE FOR GFR 2.39 MG/DL (0.70-1.30); GLOMERULAR FILTRATION RATE 28.6 (>42); POTASSIUM SERUM 3.9 MEQ/L (3.5-5.1)
[2018-12-10] MEDS: SANTYL OINT 30GM TOP SCH (08:07)
[2018-12-10] MEDS: EZETIMIBE 10 MG TAB (ZETIA) PO SCH (08:20)
[2018-12-10] MEDS: CARVedilol 12.5 MG TAB PO SCH ×2 (08:20→21:25)
[2018-12-10] MEDS: PANTOPRAZOLE 40MG TAB (PROTONIX) PO SCH (08:21)
[2018-12-10] MEDS: PERCOCET 5MG/325MG TAB PO PRN ×3 (08:21→23:29)
[2018-12-10] MEDS: BENZONATATE 100 MG CAP PO PRN (08:21)
[2018-12-10] MEDS: MULTIVITAMINS CHILDREN'S CHEWABLE TABLET PO SCH (08:21)
[2018-12-10] MEDS: FERROUS SULFATE 325MG TAB PO SCH ×2 (08:21→21:26)
[2018-12-10] MEDS: VANCOMYCIN HCL 1,000 MG, VIAL MATE ADAPTER 1 EACH in D5W 250 ML IV SCH (08:22)
[2018-12-10] MEDS: LEVEMIR (INSULIN DETEMIR) 1 UNITS/0.01ML SC SCH ×2 (08:22→21:27)
[2018-12-10] MEDS: HumaLOG INSULIN (NovoLOG) PER UNIT SC SCH ×4 (08:22→21:00)
[2018-12-10 10:00] VITALS: BP 150/52
[2018-12-10] MEDS: LOSARTAN 50 MG TAB PO SCH (13:06)
[2018-12-10 14:00] VITALS: BP 158/52
--- NOTE | 2018-12-10 16:53 | IPNPDOC ---
Date Seen The patient was seen on 12/10/18. Progress Note SUBJECTIVE: Patient not in acute distress. No acute pain. He is waiting to return to OR tomorrow with Dr. Polanco. Consult Dr. Browne for am. OBJECTIVE PHYSICAL EXAMINATION: VITAL SIGNS: Please see below GENERAL APPEARANCE: Resting HEENT: Normocephalic, PERRLA, Mucous moist, CARDIOVASCULAR: S1,S2, pulse present, regularly, regular, LUNGS: Equal air entry b/l, no wheezes or crackle, intermittent dry cough ABDOMEN: Soft, BS present, no tenderness, no guarding GENITOURINARY: No Kohler EXTREMITIES: patient underwent left foot sx 12/08/18. SKIN: Warm, No fever NEUROLOGICAL: Cranial nerves grossly intact PSYCHIATRIC: Normal mood and affect for current situation LABORATORY DATA, IMAGING STUDIES, MICROBIOLOGY: Please see below. 73-year-old who was in a few past medical history of Pvzke-Lstdrmhsd-Qahwl, coronary artery disease with 6 stent, cardiac and abdominal bypass, carotid stenosis, previous history of GI bleed who was sent by Dr. Polanco due to worsening of the left foot ulceration. Patient states that he had developed a lesion on his left foot couple of months ago which progressively worsened and followed up with Dr. Polanco as outpatient. Unfortunately for the past 2 days, he overworked his foot as he had chores in his yard. When he followed up with Dr. Polanco today patient's foot had drainage and lesion and wound looked worse therefore patient was sent to the hospital for further evaluation and treatment for cellulitis and to rule out osteo-myelitis. Patient states that the wound had purulent drainage in the office. Patient denied of any fever, diarrhea, or dysuria. He did have dry cough for 1 week duration. He mentioned that he is not a smoker but used to be a former smoker but does not utilize any inhalers or respiratory therapy. He developed some greenish phlegm and small amount mainly dry cough. Spoke to Dr. Polanco who will evaluate patient in the hospital and recommends MRI of the foot and antibiotic including vancomycin as he suspected Gram- positive organism. Assessment and plan: 73-year-old who was in a few past medical history of Fwegg-Wotgbynpw-Mojmw, coronary artery disease with 6 stent, cardiac and abdominal bypass, carotid stenosis, previous history of GI bleed who was sent by Dr. Polanco due to worsening of the left foot ulceration. Mri of foot showed osteomyelitis. CXR's showed no acute disease. Sx was delayed initially because pt was taking nitroglycerin for his esophageal spasm. Patient did not have chest pain at the time but troponin was drawn which show slight elevation. Enzyme trended down and cardiology was consult. Dr. García review Echo (per Dr. García: EF nml and no motion wall abnml) and repeat EKG(per dr. 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 Patient determined to have mod-high risk by cardiology but due to his osteomyelitis and bacteremia likely source from left foot, podiatry is on board and patient underwent left foot sx 12/08/18. Organism as mentioned below. Patient found to have bacteremia of Streptococcus group G but sensitive to vancomycin, Zosyn, and clindamycin. Patient was switched over to clindamycin. His biopsy cultures returned growing Streptococcus group G and staph aureus with culture sensitivity still pending at this time. Consult with ID in a.m. Left foot cellulitis, possible osteomyelitis -MRI of the foot:Findings consistent with osteomyelitis involving the distal aspect of the first metatarsal and possibly the medial corner of the base of the proximal phalanx of the great toe. There is no overlying skin ulcer evident and there is adjacent edema and some fluid. -Consult with Dr. Polanco (podiatry) -Initial ESR 126, CRP 13.6 -left leg us :neg for dvt -Mod-high risk for sx per cardiology but patient with bacteremia likely source from left foot osteomyelitis. -Echo (per Dr. García: EF nml and no motion wall abnml) and repeat EKG(per dr. 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 Lactic acidosis, leukocytosis -s/p IV fluid --Empiric antibiotic of Zosyn and vancomycin -Blood culture 2: STREPTOCOCCUS GROUP G sensitive to clindamycin, switch abx to clindamycin -Surgical biopsy: STREPTOCOCCUS GROUP G -Surgical culture: Streptococcus group G, Staphylococcus aureusawait sensitivity -Consult with ID Bacteremia -abx as above -repeat blood cx no growth to date Positive troponin -hx of A/CKD, bactermia, cardiac hx -ischemic demand -defer management to cardiology:hx GI bleed thus refused anticoagulant. Rec another statin in pravastatin, or Livalo might be a good choice for him. Continue B+hammad and long acting nitrates Acute on chronic kidney disease stage III -IV fluid -Hold renal toxic medication -Monitor -F/u with Dr. Baugh as outpatient Diabetes -finger sick monitoring and coverage -Hemoglobin A1c 8.1 -Patient takes sliding scale of long-acting insulin today he took 60 units due to sugar being in the 200s but just a did not take any. Verify home insulin dosing and resumespoke to pharmacy could not come to a conclusion as to how much patient normally takes of his long-acting insulin. We will start off with 10 units twice a day with parameters and escalate as needed. Cough -Checks x-ray: no acute disease -Respiratory therapy as needed History of Ywynf-Oeqlhahqi-Nflim, coronary artery disease with 6 stent -Resume carvedilol -Resume Nitrostat -Resume Ezetimibe -Patient currently not on aspirin most likely secondary due to history of GI bleed, please follow with the PCP and primary cardiology as outpatient -Telemetry monitoring post surgery for arrhythmias. -EKG prior to sx: Heart rate of 85, sinus with occasional SVC, and as per cardiology no delta wave noted on the EKG. -Cardiology also mentioned that with WPW pt simple rate controlling beta hammad can help assess if tachycardia develops. In rare cases of arrhyt hmia amiodarone and cardioversion as needed. Cardiology is available if needed. -Mod-high risk for sx per cardiology but patient with bacteremia likely source from left foot osteomyelitis. -Echo (per Dr. García: EF nml and no motion wall abnml) and repeat EKG(per dr. 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 -outpatient statin, f/u with cardiology as outpatient Hypertension -Carvedilol -Losartan (per cardio's note can be held day of sx, verify PRN) -Hold hydrochlorothiazide -As needed hydralazine History of GI bleed -resume iron supplement, pantoprazole Cardiac abdominal bypass history History of cardiac stenosis DVT prophylaxis with TIMOTHY and SCD once left LE neg for DVT Echo:1. Normal global left ventricular systolic function. There are some features of left ventricular diastolic dysfunction, grade 2. 2. Aortic valve sclerosis with mild aortic regurgitation but no aortic stenosis. 3. Mild mitral regurgitation with mildly enlarged left atrium. A dilated left atrium is most likely related to the underlying left ventricular diastolic dysfunction because there is no significant mitral regurgitation. 4. Mild to moderate mitral regurgitation with a mildly dilated left atrium. 5. Mild to moderate tricuspid regurgitation with moderate pulmonary hypertension. DISPOSITION: [reassess after acute issues resolve]. VS, I&O, 24H, Fishbone Vital Signs/I&O Vital Signs Date Time Temp Pulse Resp B/P (MAP) Pulse Ox O2 Delivery O2 Flow Rate FiO2 12/10/18 14:00 97.7 72 22 158/52 (87) 97 12/06/18 16:54 Room Air I&O- Last 24 Hours up to 6 AM 12/10/18 06:00 Intake Total 1950 ml Output Total 1195 ml Balance 755 ml Laboratory Data 24H LABS Laboratory Tests 2 12/09/18 16:44: Bedside Glucose (Misc Panel) 128H 12/10/18 06:11: Nucleated Red Blood Cells % (auto) 0.0, Anion Gap 6L, Glomerular Filtration Rate 28.6L, Blood Urea Nitrogen 28H, Creatinine 2.39H, Sodium Level 137, Potassium Level 3.9, Chloride Level 106, Carbon Dioxide Level 25, Calcium Level 8.2L CBC/BMP Laboratory Tests 12/10/18 06:11 Red Blood Count 2.50 L, Mean Corpuscular Volume 98.8 H, Mean Corpuscular Hem oglobin 32.4, Mean Corpuscular Hemoglobin Concent 32.8, Red Cell Distribution Width 13.9, Calcium Level 8.2 L Microbiology Microbiology 12/08/18 Blood Culture - Preliminary, Resulted No Growth after 48 hours. All Specime... 12/06/18 Blood Culture - Final, Complete Streptococcus Group G 12/06/18 Blood Culture - Final, Complete Streptococcus Group G 12/08/18 Surgical Biopsy Culture - Preliminary, Resulted Streptococcus Group G 12/08/18 Anaerobic Culture - Final, Resulted 12/08/18 Surgical Biopsy Culture - Preliminary, Resulted Streptococcus Group G Staphylococcus Aureus 12/08/18 Anaerobic Culture - Final, Resulted MARCOS RUIZ MD Dec 10, 2018 16:52
[2018-12-10] MEDS: ISOSORBIDE MON. (IMDUR) 30 MG XR TAB PO SCH (21:24)
[2018-12-10 22:00] VITALS: BP 142/58
[2018-12-11] VITALS (8 sets, daily range): BP systolic 140–170; BP diastolic 38–87
--- NOTE | 2018-12-11 06:06 | IPN ---
DATE: 12/09/2018 CHIEF COMPLAINT: The patient is seen today for evaluation of his left foot status post first right amputation left foot. The patient states he is feeling well, denies any shortness of breath or chest pain. There is some breakthrough bleeding noted on the bandage. The bandage was removed. The wound is being held together with three bolster stitches. The wound margins are viable. No active purulence is noted. Surrounding erythema is noted of the foot but reduced from his last visit. White cell count has trended downward to 10.5. BUN is 30, creatinine is 2.39. 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 PLAN: The patient will be nothing by mouth Monday morning for planned debridement delayed primary closure over vancomycin beads. The patient's culture reveals Strep Group B sensitive to vancomycin.
[2018-12-11 06:23] LABS: HEMATOCRIT 25.8 % (42.0-52.0); HEMOGLOBIN 8.4 g/dl (13.5-17.5); MEAN CORPUSCULAR HEMOGLOBIN 31.9 pg (27.0-33.0); MEAN CORPUSCULAR HGB CONC 32.6 g/dl (32.0-36.5); MEAN CORPUSCULAR VOLUME 98.1 fl (80.0-96.0); PLATELET COUNT, AUTOMATED 340 10^3/uL (150-450); RED BLOOD COUNT 2.63 10^6/uL (4.30-6.10); WHITE BLOOD COUNT 10.8 10^3/uL (4.0-10.0)
[2018-12-11 06:40] LABS: C REACTIVE PROTEIN QUANTITATIV 6.87 MG/DL (0.00-0.30); CALCIUM LEVEL 8.1 MG/DL (8.8-10.2); CREATININE FOR GFR 2.17 MG/DL (0.70-1.30)
[2018-12-11] MEDS: HumaLOG INSULIN (NovoLOG) PER UNIT SC SCH ×4 (07:22→21:00)
[2018-12-11] MEDS: VANCOMYCIN HCL 1,000 MG, VIAL MATE ADAPTER 1 EACH in D5W 250 ML IV SCH (08:50)
[2018-12-11] MEDS: MULTIVITAMINS CHILDREN'S CHEWABLE TABLET PO SCH (08:50)
[2018-12-11] MEDS: CARVedilol 12.5 MG TAB PO SCH ×2 (08:51→21:14)
[2018-12-11] MEDS: PANTOPRAZOLE 40MG TAB (PROTONIX) PO SCH (08:51)
[2018-12-11] MEDS: LEVEMIR (INSULIN DETEMIR) 1 UNITS/0.01ML SC SCH ×2 (08:51→21:16)
[2018-12-11] MEDS: EZETIMIBE 10 MG TAB (ZETIA) PO SCH (08:51)
[2018-12-11] MEDS: FERROUS SULFATE 325MG TAB PO SCH ×2 (08:52→21:13)
[2018-12-11] MEDS: LOSARTAN 50 MG TAB PO SCH (08:52)
[2018-12-11] MEDS: SANTYL OINT 30GM TOP SCH (09:00)
[2018-12-11] MEDS: PERCOCET 5MG/325MG TAB PO PRN ×2 (09:15→15:22)
--- NOTE | 2018-12-11 11:04 | IPNPDOC ---
Date Seen The patient was seen on 12/11/18. Progress Note SUBJECTIVE: : Per podiatry,"The patient will be nothing by mouth Monday morning for planned debridement delayed primary closure over vancomycin beads. The patient's culture reveals Strep Group B sensitive to vancomycin." pain is 2/10 on pain scale onpercocet prn. "I try to wait as long as I can before I ask for pain meds, but I still need it." Pt worried that he has a flight of stairs at home, and a few steps to get into the home. is requesting a hospital bed, "like when I had my heart surgery." Awaiting PT recommendations/ARU screen after OR today. OBJECTIVE PHYSICAL EXAMINATION: VITAL SIGNS: Please see below GENERAL APPEARANCE: Resting HEENT: Normocephalic, PERRLA, Mucous moist, CARDIOVASCULAR: S1,S2, pulse present, regularly, regular, LUNGS: Equal air entry b/l, no wheezes or crackle, intermittent dry cough ABDOMEN: Soft, BS present, no tenderness, no guarding GENITOURINARY: No Kohler EXTREMITIES: patient underwent left foot sx 12/08/18. SKIN: Warm, No fever NEUROLOGICAL: Cranial nerves grossly intact PSYCHIATRIC: Normal mood and affect for current situation LABORATORY DATA, IMAGING STUDIES, MICROBIOLOGY: Please see below. 73-year-old who was in a few past medical history of Ipjbz-Upgzblyyp-Fffia, coronary artery disease with 6 stent, cardiac and abdominal bypass, carotid stenosis, previous history of GI bleed who was sent by Dr. Polanco due to worsening of the left foot ulceration. Patient states that he had developed a lesion on his left foot couple of months ago which progressively worsened and followed up with Dr. Polanco as outpatient. Unfortunately for the past 2 days, he overworked his foot as he had chores in his yard. When he followed up with Dr. Polanco today patient's foot had drainage and lesion and wound looked worse therefore patient was sent to the hospital for further evaluation and treatment for cellulitis and to rule out osteo-myelitis. Patient states that the wound had purulent drainage in the office. Patient denied of any fever, diarrhea, or dysuria. He did have dry cough for 1 week duration. He mentioned that he is not a smoker but used to be a former smoker but does not utilize any inhalers or respiratory therapy. He developed some greenish phlegm and small amount mainly dry cough. Spoke to Dr. Polanco who will evaluate patient in the hospital and recommends MRI of the foot and antibiotic including vancomycin as he suspected Gram- positive organism. Assessment and plan: 73-year-old who was in a few past medical history of Pcfba-Owrdxnbey-Xymux, coronary artery disease with 6 stent, cardiac and abdominal bypass, carotid stenosis, previous history of GI bleed who was sent by Dr. Polanco due to worsening of the left foot ulceration. Mri of foot showed osteomyelitis. CXR's showed no acute disease. Sx was delayed initially because pt was taking nitroglycerin for his esophageal spasm. Patient did not have chest pain at the time but troponin was drawn which show slight elevation. Enzyme trended down and cardiology was consult. Dr. García review Echo (per Dr. García: EF nml and no motion wall abnml) and repeat EKG(per dr. 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 Patient determined to have mod-high risk by cardiology but due to his osteomyelitis and bacteremia likely source from left foot, podiatry is on board and patient underwent left foot sx 12/08/18. Organism as mentioned below. Patient found to have bacteremia of Streptococcus group G but sensitive to vancomycin, Zosyn, and clindamycin. Patient was switched over to clindamycin. His biopsy cultures returned growing Streptococcus group G and staph aureus with culture sensitivity still pending at this time. Consult with ID in a.m. Left foot cellulitis, possible osteomyelitis -MRI of the foot:Findings consistent with osteomyelitis involving the distal aspect of the first metatarsal and possibly the medial corner of the base of the proximal phalanx of the great toe. There is no overlying skin ulcer evident and there is adjacent edema and some fluid. -Consult with Dr. Polanco (podiatry) -Initial ESR 126, CRP 13.6 -left leg us :neg for dvt -Mod-high risk for sx per cardiology but patient with bacteremia likely source from left foot osteomyelitis. -Echo (per Dr. García: EF nml and no motion wall abnml) and repeat EKG(per dr. 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 Lactic acidosis, leukocytosis -s/p IV fluid --Empiric antibiotic of Zosyn and vancomycin -Blood culture 2: STREPTOCOCCUS GROUP G sensitive to clindamycin, switch abx to clindamycin -Surgical biopsy: STREPTOCOCCUS GROUP G -Surgical culture: Streptococcus group G, Staphylococcus aureusawait sensitivity -Consult with ID Bacteremia -abx as above -repeat blood cx no growth to date Positive troponin -hx of A/CKD, bactermia, cardiac hx -ischemic demand -defer management to cardiology:hx GI bleed thus refused anticoagulant. Rec another statin in pravastatin, or Livalo might be a good choice for him. Continue B+hammad and long acting nitrates Acute on chronic kidney disease stage III -IV fluid -Hold renal toxic medication -Monitor -F/u with Dr. Baugh as outpatient Diabetes -finger sick monitoring and coverage -Hemoglobin A1c 8.1 -Patient takes sliding scale of long-acting insulin today he took 60 units due to sugar being in the 200s but just a did not take any. Verify home insulin dosing and resumespoke to pharmacy could not come to a conclusion as to how much patient normally takes of his long-acting insulin. We will start off with 10 units twice a day with parameters and escalate as needed. Cough -Checks x-ray: no acute disease -Respiratory therapy as needed History of Mjjbw-Ihhlluzfl-Bzzfe, coronary artery disease with 6 stent -Resume carvedilol -Resume Nitrostat -Resume Ezetimibe -Patient currently not on aspirin most likely secondary due to history of GI bleed, please follow with the PCP and primary cardiology as outpatient -Telemetry monitoring post surgery for arrhythmias. -EKG prior to sx: Heart rate of 85, sinus with occasional SVC, and as per cardiology no delta wave noted on the EKG. -Cardiology also mentioned that with WPW pt simple rate controlling beta hammad can help assess if tachycardia develops. In rare cases of arrhythmia amiodarone and cardioversion as needed. Cardiology is available if needed. -Mod-high risk for sx per cardiology but patient with bacteremia likely source from left foot osteomyelitis. -Echo (per Dr. García: EF nml and no motion wall abnml) and repeat EKG(per dr. 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 -outpatient statin, f/u with cardiology as outpatient Hypertension -Carvedilol -Losartan (per cardio's note can be held day of sx, verify PRN) -Hold hydrochlorothiazide -As needed hydralazine History of GI bleed -resume iron supplement, pantoprazole Cardiac abdominal bypass history History of cardiac stenosis DVT prophylaxis with TIMOTHY and SCD once left LE neg for DVT Echo:1. Normal global left ventricular systolic function. There are some features of left ventricular diastolic dysfunction, grade 2. 2. Aortic valve sclerosis with mild aortic regurgitation but no aortic stenosis. 3. Mild mitral regurgitation with mildly enlarged left atrium. A dilated left atrium is most likely related to the underlying left ventricular diastolic dysfunction because there is no significant mitral regurgitation. 4. Mild to moderate mitral regurgitation with a mildly dilated left atrium. 5. Mild to moderate tricuspid regurgitation with moderate pulmonary hypertension. DISPOSITION: [reassess after acute issues resolve]. A-FIB/CHADSVASC A-FIB History Current/History of A-Fib/PAF?: No Current Oral Anticoagulant The: No VS, I&O, 24H, Fishbone Vital Signs/I&O Vital Signs Date Time Temp Pulse Resp B/P (MAP) Pulse Ox O2 Delivery O2 Flow Rate FiO2 12/11/18 09:15 17 12/11/18 08:52 144/64 12/11/18 08:51 61 12/11/18 08:30 98.3 95 12/06/18 16:54 Room Air I&O- Last 24 Hours up to 6 AM 12/11/18 06:00 Intake Total 1720 ml Output Total 1900 ml Balance -180 ml Laboratory Data 24H LABS Laboratory Tests 2 12/10/18 17:01: Bedside Glucose (Misc Panel) 90 12/11/18 06:05: Nucleated Red Blood Cells % (auto) 0.0, Anion Gap 7L, Glomerular Filtration Rate 32.0L, Blood Urea Nitrogen 23H, Creatinine 2.17H, Sodium Level 139, Potassium Level 4.0, Chloride Level 107, Carbon Dioxide Level 25, Calcium Level 8.1L, C- Reactive Protein, Quantitative 6.87H CBC/BMP Laboratory Tests 12/11/18 06:05 Red Blood Count 2.63 L, Mean Corpuscular Volume 98.1 H, Mean Corpuscular Hemoglobin 31.9, Mean Corpuscular Hemoglobin Concent 32.6, Red Cell Distribution Width 13.8, Calcium Level 8.1 L Microbiology Microbiology 12/08/18 Blood Culture - Preliminary, Resulted No Growth after 48 hours. All Specime... 4/25/19 Blood Culture - Final, Complete Streptococcus Group G 12/06/18 Blood Culture - Final, Complete Streptococcus Group G 12/08/18 Surgical Biopsy Culture - Final, Complete Streptococcus Group G 12/08/18 Anaerobic Culture - Final, Complete 12/08/18 Surgical Biopsy Culture - Final, Complete Streptococcus Group G Staph.aureus Methicillin Resis 12/08/18 Anaerobic Culture - Final, Complete FRANCOIS BELL MD Dec 11, 2018 10:26
[2018-12-11] MEDS: NS 1,000 ML IV SCH (12:27)
[2018-12-11] MEDS ORDERED: ROPIvacaine 0.5% 30 ML INJECTION (J2795 PER 1MG) As Ordered ONE (14:52)
[2018-12-11] MEDS ORDERED: LIDOCAINE 2% MDV 20 ML VIAL As Ordered ONE (14:52)
[2018-12-11] MEDS ORDERED: VANCOMYCIN HCL 500 MG/10 ML VIAL (J3370) As Ordered ONE ×2 (17:13→17:15)
[2018-12-11] MEDS ORDERED: PROPOFOL 200 MG/20 ML VIAL As Ordered ONE (17:24)
[2018-12-11] MEDS ORDERED: MIDAZOLAM INJ 2 MG/2 ML VIAL (J2250) As Ordered ONE (17:24)
[2018-12-11] MEDS ORDERED: fentaNYL 100 MCG/2 ML INJECTION (J3010) As Ordered ONE (17:24)
[2018-12-11] MEDS ORDERED: LIDOCAINE 2% INJ 100 MG/5 ML SDV (FOR ANES.) As Ordered ONE (17:26)
[2018-12-11] MEDS ORDERED: KETOROLAC 60 MG/2 ML VIAL (J1885) As Ordered ONE (18:21)
[2018-12-11] MEDS ORDERED: ONDANSETRON 4MG/2ML VIAL (J2405) As Ordered ONE (18:21)
[2018-12-11] MEDS ORDERED: fentaNYL 100 MCG/2 ML INJECTION (J3010) IV PRN (19:00)
[2018-12-11] MEDS ORDERED: NORCO, ANEXSIA 5/325MG TABLET (HYDROcodone/ACETAMINOPHEN) PO PRN (19:00)
[2018-12-11] MEDS: ISOSORBIDE MON. (IMDUR) 30 MG XR TAB PO SCH (21:15)
[2018-12-12] VITALS (9 sets, daily range): BP systolic 125–168; BP diastolic 54–73
[2018-12-12] MEDS: NS 1,000 ML IV SCH (02:01)
[2018-12-12 06:29] LABS: HEMATOCRIT 24.4 % (42.0-52.0); HEMOGLOBIN 7.8 g/dl (13.5-17.5); PLATELET COUNT, AUTOMATED 317 10^3/uL (150-450); RED BLOOD COUNT 2.44 10^6/uL (4.30-6.10); WHITE BLOOD COUNT 9.6 10^3/uL (4.0-10.0)
[2018-12-12 06:50] LABS: CALCIUM LEVEL 7.8 MG/DL (8.8-10.2); CREATININE FOR GFR 2.04 MG/DL (0.70-1.30); GLOMERULAR FILTRATION RATE 34.3 (>42); POTASSIUM SERUM 4.3 MEQ/L (3.5-5.1)
[2018-12-12] MEDS: VANCOMYCIN HCL 1,000 MG, VIAL MATE ADAPTER 1 EACH in D5W 250 ML IV SCH (08:53)
[2018-12-12] MEDS: HumaLOG INSULIN (NovoLOG) PER UNIT SC SCH ×4 (08:54→21:00)
[2018-12-12] MEDS: PANTOPRAZOLE 40MG TAB (PROTONIX) PO SCH (08:54)
[2018-12-12] MEDS: CARVedilol 12.5 MG TAB PO SCH ×2 (08:54→22:20)
[2018-12-12] MEDS: LEVEMIR (INSULIN DETEMIR) 1 UNITS/0.01ML SC SCH ×2 (08:55→22:21)
[2018-12-12] MEDS: LOSARTAN 50 MG TAB PO SCH (08:55)
[2018-12-12] MEDS: FERROUS SULFATE 325MG TAB PO SCH ×2 (08:55→22:19)
[2018-12-12] MEDS: EZETIMIBE 10 MG TAB (ZETIA) PO SCH (08:55)
[2018-12-12] MEDS: MULTIVITAMINS CHILDREN'S CHEWABLE TABLET PO SCH (08:56)
[2018-12-12] MEDS: SANTYL OINT 30GM TOP SCH (09:00)
[2018-12-12] MEDS: PERCOCET 5MG/325MG TAB PO PRN ×2 (09:20→18:37)
--- NOTE | 2018-12-12 12:08 | IPNPDOC ---
Date Seen The patient was seen on 12/12/18. Progress Note SUBJECTIVE: :anxious to go home but needs to do 4 steps prior to being cleared by PT. pain is 2/10 on pain scale onpercocet prn. "I try to wait as long as I can before I ask for pain meds, but I still need it." Pt worried that he has a flight of stairs at home, and a few steps to get into the home. is requesting a hospital bed, "like when I had my heart surgery." surgical culture: strep. OBJECTIVE PHYSICAL EXAMINATION: VITAL SIGNS: Please see below GENERAL APPEARANCE: Resting HEENT: Normocephalic, PERRLA, Mucous moist, CARDIOVASCULAR: S1,S2, pulse present, regularly, regular, LUNGS: Equal air entry b/l, no wheezes or crackle, intermittent dry cough ABDOMEN: Soft, BS present, no tenderness, no guarding GENITOURINARY: No Kohler EXTREMITIES: patient underwent left foot sx 12/08/18. SKIN: Warm, No fever NEUROLOGICAL: Cranial nerves grossly intact PSYCHIATRIC: Normal mood and affect for current situation LABORATORY DATA, IMAGING STUDIES, MICROBIOLOGY: Please see below. 73-year-old who was in a few past medical history of Ievhp-Qixrnkxyl-Ugptu, coronary artery disease with 6 stent, cardiac and abdominal bypass, carotid stenosis, previous history of GI bleed who was sent by Dr. Polanco due to worsening of the left foot ulceration. Patient states that he had developed a lesion on his left foot couple of months ago which progressively worsened and followed up with Dr. Polanco as outpatient. Unfortunately for the past 2 days, he overworked his foot as he had chores in his yard. When he followed up with Dr. Polanco today patient's foot had drainage and lesion and wound looked worse therefore patient was sent to the hospital for further evaluation and treatment for cellulitis and to rule out osteo-myelitis. Patient states that the wound had purulent drainage in the office. Patient denied of any fever, diarrhea, or dysuria. He did have dry cough for 1 week duration. He mentioned that he is not a smoker but used to be a former smoker but does not utilize any inhalers or respiratory therapy. He developed some greenish phlegm and small amount mainly dry cough. Spoke to Dr. Polanco who will evaluate patient in the hospital and recommends MRI of the foot and antibiotic including vancomycin as he suspected Gram- positive organism. Assessment and plan: 73-year-old who was in a few past medical history of Ktnbj-Pahhamqhz-Nagyr, coronary artery disease with 6 stent, cardiac and abdominal bypass, carotid stenosis, previous history of GI bleed who was sent by Dr. Polanco due to worsening of the left foot ulceration. Mri of foot showed osteomyelitis. CXR's showed no acute disease. Sx was delayed initially because pt was taking nitroglycerin for his esophageal spasm. Patient did not have chest pain at the time but troponin was drawn which show slight elevation. Enzyme trended down and cardiology was consult. Dr. García review Echo (per Dr. García: EF nml and no motion wall abnml) and repeat EKG(per dr. 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 Patient determined to have mod-high risk by cardiology but due to his osteomyelitis and bacteremia likely source from left foot, podiatry is on board and patient underwent left foot sx 12/08/18. Organism as mentioned below. Patient found to have bacteremia of Streptococcus group G but sensitive to vancomycin, Zosyn, and clindamycin. Patient was switched over to clindamycin. His biopsy cultures returned growing Streptococcus group G and staph aureus with culture sensitivity still pending at this time. Consult with ID in a.m. Left foot cellulitis, possible osteomyelitis -MRI of the foot:Findings consistent with osteomyelitis involving the distal aspect of the first metatarsal and possibly the medial corner of the base of the proximal phalanx of the great toe. There is no overlying skin ulcer evident and there is adjacent edema and some fluid. -Consult with Dr. Polanco (podiatry) -Initial ESR 126, CRP 13.6 -left leg us :neg for dvt -Mod-high risk for sx per cardiology but patient with bacteremia likely source from left foot osteomyelitis. -Echo (per Dr. García: EF nml and no motion wall abnml) and repeat EKG(per dr. 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 Lactic acidosis, leukocytosis -s/p IV fluid --Empiric antibiotic of Zosyn and vancomycin -Blood culture 2: STREPTOCOCCUS GROUP G sensitive to clindamycin, switch abx to clindamycin -Surgical biopsy: STREPTOCOCCUS GROUP G -Surgical culture: Streptococcus group G, Staphylococcus aureusawait sensitivity -Consult with ID Bacteremia -abx as above -repeat blood cx no growth to date Positive troponin -hx of A/CKD, bactermia, cardiac hx -ischemic demand -defer management to cardiology:hx GI bleed thus refused anticoagulant. Rec another statin in pravastatin, or Livalo might be a good choice for him. Continue B+hammad and long acting nitrates Acute on chronic kidney disease stage III -IV fluid -Hold renal toxic medication -Monitor -F/u with Dr. Baugh as outpatient Diabetes -finger sick monitoring and coverage -Hemoglobin A1c 8.1 -Patient takes sliding scale of long-acting insulin today he took 60 units due to sugar being in the 200s but just a did not take any. Verify home insulin dosing and resumespoke to pharmacy could not come to a conclusion as to how much patient normally takes of his long-acting insulin. We will start off with 10 units twice a day with parameters and escalate as needed. Cough -Checks x-ray: no acute disease -Respiratory therapy as needed History of Zxndo-Qfhyrerid-Dnirj, coronary artery disease with 6 stent -Resume carvedilol -Resume Nitrostat -Resume Ezetimibe -Patient currently not on aspirin most likely secondary due to history of GI bleed, please follow with the PCP and primary cardiology as outpatient -Telemetry monitoring post surgery for arrhythmias. -EKG prior to sx: Heart rate of 85, sinus with occasional SVC, and as per cardiology no delta wave noted on the EKG. -Cardiology also mentioned that with WPW pt simple rate controlling beta hammad can help assess if tachycardia develops. In rare cases of arrhythmia amiodarone and cardioversion as needed. Cardiology is available if needed. -Mod-high risk for sx per cardiology but patient with bacteremia likely source from left foot osteomyelitis. -Echo (per Dr. García: EF nml and no motion wall abnml) and repeat EKG(per dr. 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 -outpatient statin, f/u with cardiology as outpatient Hypertension -Carvedilol -Losartan (per cardio's note can be held day of sx, verify PRN) -Hold hydrochlorothiazide -As needed hydralazine History of GI bleed -resume iron supplement, pantoprazole Cardiac abdominal bypass history History of cardiac stenosis DVT prophylaxis with TIMOTHY and SCD once left LE neg for DVT Echo:1. Normal global left ventricular systolic function. There are some features of left ventricular diastolic dysfunction, grade 2. 2. Aortic valve sclerosis with mild aortic regurgitation but no aortic stenosis. 3. Mild mitral regurgitation with mildly enlarged left atrium. A dilated left atrium is most likely related to the underlying left ventricular diastolic dysfunction because there is no significant mitral regurgitation. 4. Mild to moderate mitral regurgitation with a mildly dilated left atrium. 5. Mild to moderate tricuspid regurgitation with moderate pulmonary hypertension. Need for Hospital bed: Pt's current medical issues requires positioning of the body not feasible with an ordinary bed to alleviate pain. DISPOSITION:awaiting PT clearance A-FIB/CHADSVASC SCREEN A-FIB/CHADSVASC A-FIB History Current/History of A-Fib/PAF?: No Current Oral Anticoagulant The: No A-FIB/CHADSVASC A-FIB History Current/History of A-Fib/PAF?: No Current Oral Anticoagulant The: No VS, I&O, 24H, Fishbone Vital Signs/I&O Vital Signs Date Time Temp Pulse Resp B/P (MAP) Pulse Ox O2 Delivery O2 Flow Rate FiO2 12/12/18 10:00 97.2 63 16 140/54 (82) 97 12/06/18 16:54 Room Air I&O- Last 24 Hours up to 6 AM 12/12/18 06:00 Intake Total 1850 ml Output Total 810 ml Balance 1040 ml Laboratory Data 24H LABS Laboratory Tests 2 12/11/18 16:25: Bedside Glucose (Misc Panel) 118H 12/11/18 18:50: Bedside Glucose (Misc Panel) 106 12/11/18 20:10: Bedside Glucose (Misc Panel) 124H 12/12/18 06:09: Nucleated Red Blood Cells % (auto) 0.0, Anion Gap 3L, Glomerular Filtration Rate 34.3L, Blood Urea Nitrogen 23H, Creatinine 2.04H, Sodium Level 138, Potassium Level 4.3, Chloride Level 108H, Carbon Dioxide Level 27, Calcium Level 7.8L CBC/BMP Laboratory Tests 12/12/18 06:09 Red Blood Count 2.44 L, Mean Corpuscular Volume 100.0 H, Mean Corpuscular Hemoglobin 32.0, Mean Corpuscular Hemoglobin Concent 32.0, Red Cell Distribution Width 13.6, Calcium Level 7.8 L Microbiology Microbiology 12/08/18 Blood Culture - Preliminary, Resulted No Growth after 72 hours. All specime... 12/06/18 Blood Culture - Final, Complete Streptococcus Group G 12/06/18 Blood Culture - Final, Complete Streptococcus Group G 12/11/18 Gram Stain - Final, Resulted 12/11/18 Wound Culture, Resulted Pending 12/11/18 Anaerobic Culture, Received Pending 12/08/18 Surgical Biopsy Culture - Final, Complete Streptococcus Group G 12/08/18 Anaerobic Culture - Final, Complete 12/08/18 Surgical Biopsy Culture - Final, Complete Streptococcus Group G Staph.aureus Methicillin Resis 12/08/18 Anaerobic Culture - Final, Complete FRANCOIS BELL MD December 12, 2018 12:08
--- NOTE | 2018-12-12 12:50 | RO ---
DATE OF PROCEDURE: 12/08/2018 PREOPERATIVE DIAGNOSIS: Osteomyelitis 1st metatarsophalangeal joint left foot with stage IV ulcer. POSTOPERATIVE DIAGNOSIS: Osteomyelitis 1st metatarsophalangeal joint left foot with stage IV ulcer. PROCEDURE PERFORMED: 1st ray amputation left foot. SURGEON: DYLON Moore ASSISTANT: None. ANESTHESIA: ESTIMATED BLOOD LOSS: 50 mL. IRRIGATION: Dilute vancomycin solution. DESCRIPTION OF OPERATION: On 12/08/2018, this 73-year-old white male was taken from his hospital room to the operating room and placed on the operating table in supine position. Following the induction of intravenous (IV) sedation and local and regional anesthesia, the left lower extremity was prepped with a Betadine prep. The sterile draping was completed, and attention was directed to the patient's left foot, where the following procedure was performed. 1ST RAY AMPUTATION LEFT FOOT: Attention was directed to the patient's left foot. There was noted to be an ulceration straight to bone. Two semi-elliptical incisions were placed starting at the mid shaft of the 1st metatarsal and encompassing around the 1st metatarsal head and around the base of the toe. This incision was straight to bone, and the toe was disarticulated. Dissection was then carried down to bone, and a subperiosteal dissection was applied through the neck of the 1st metatarsal and a biased incision, taking more off the medial and plantar surfaces, was made through the 1st metatarsal and this was extirpated. Two sesamoids were then removed from the plantar surface. All bleeders as encountered were electrocoagulated. Bone cultures as well as a soft tissue culture were taken for aerobic and anaerobic evaluation. Preliminary blood culture was group G streptococcus. 3 liters of dilute vancomycin solution was then pulse lavaged through the wound. There was no abscess formation seen outside of the amount of discharge that was present around the 1st metatarsal head. The tendons were pulled tight and were transected out of the wound. Ten 5 mm vancomycin beads were placed in the wound with half-inch iodoform gauze. Three bolster stitches were placed to prevent contraction of the wound. This patient is scheduled for debridement and delayed primary closure Monday. His questions were answered. Will continue on antibiotics, which will be tailored according to his bone culture.
--- NOTE | 2018-12-12 13:58 | RO ---
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 PROCEDURES PERFORMED: Excisional debridement, including bone, 1st ray, left foot, with delayed primary closure. SURGEON: Antoni Polanco DPM FISH MACHINE FEEDER: None. ANESTHESIA: Local monitored anesthesia care (MAC). IRRIGATION: Dilute vancomycin solution, 3 liter, with low-pressure pulse lavage system. ESTIMATED BLOOD LOSS: Less than 10 mL. IMPLANTABLES: Six 5-mm vancomycin beads. DESCRIPTION OF OPERATION: On 12/11/2018, this 73-year-old male was taken from his hospital room to the operating room and placed on the operating table in the supine position. Following the induction of intravenous (IV) sedation and local and regional anesthesia, the left lower extremity was prepped and draped in the usual aseptic manner. Attention was then directed to the patient's left foot, where there was noted to be some bolster stitches holding the wound shut. These were removed. The wound was opened. The old vancomycin beads were removed. Pulse lavage was obtained for better exposure and visualization of the wound. There was no seen purulence. Attention was directed to the bone, where a 1-mm section of bone was removed on the distal end and sent for pathology for aerobic and anaerobic cultures. Utilizing a Kim dermal curette, the wound was debrided. The wound was flushed with 3 liters of dilute vancomycin solution with a low-pressure pulse lavage system. Six 5-mm vancomycin beads were then placed in the wound, and the wound was closed with 2-0 nylon in a simple interrupted-type fashion. The distal margin had a small dog-ear, which was resected away, providing good closure of the wound, which was well coapted under no pressure. A sterile dressing was applied, consisting of Adaptic, 4 x 4s, ABDs, Kerlix, and Brayan wrap under no compression. The patient, having apparently tolerated the surgical procedure, was sent to the recovery room for further monitoring by the anesthesia department.
[2018-12-12] MEDS: ISOSORBIDE MON. (IMDUR) 30 MG XR TAB PO SCH (22:27)
[2018-12-13] MEDS: PERCOCET 5MG/325MG TAB PO PRN ×4 (00:44→16:42)
[2018-12-13 02:06] VITALS: BP 155/69
[2018-12-13 06:00] VITALS: BP 162/62
[2018-12-13 06:10] LABS: HEMATOCRIT 22.8 % (42.0-52.0); HEMOGLOBIN 7.3 g/dl (13.5-17.5); MEAN CORPUSCULAR HEMOGLOBIN 31.7 pg (27.0-33.0); MEAN CORPUSCULAR VOLUME 99.1 fl (80.0-96.0); PLATELET COUNT, AUTOMATED 337 10^3/uL (150-450); WHITE BLOOD COUNT 10.2 10^3/uL (4.0-10.0)
[2018-12-13 06:29] LABS: C REACTIVE PROTEIN QUANTITATIV 2.32 MG/DL (0.00-0.30); CALCIUM LEVEL 7.9 MG/DL (8.8-10.2); CREATININE FOR GFR 2.01 MG/DL (0.70-1.30); GLOMERULAR FILTRATION RATE 34.9 (>42); POTASSIUM SERUM 4.1 MEQ/L (3.5-5.1)
[2018-12-13 06:36] LABS: ERYTHROCYTE SEDIMENTATION RATE 128 mm/hr (0-20)
--- NOTE | 2018-12-13 09:01 | CR ---
DATE OF CONSULTATION: 12/11/2018 REASON FOR CONSULTATION: Left foot osteomyelitis. HISTORY OF PRESENT ILLNESS: Mr. Moore is a 73-year-old gentleman with a history of insulin-dependent diabetes who was admitted that got infected pretty rapidly. The patient had a fever of 102.4 on admission. He had a white count of 17.7 and there was purulent drainage from the foot. MRI done on 12/06 was consistent with osteomyelitis involving the distal aspect of the first metatarsal and the base of the proximal phalanx of the left toe. There was some edema and fluid that was concerning as well. The patient was taken to the operating room by Dr. Polanco and he underwent a first ray amputation of the left foot on 12/08. Blood cultures on admission were positive for group G strep in two separate sets. Repeat blood cultures done 48 hours later were negative. Intraoperative cultures done on 12/08 were positive for group G strep and methicillin-resistant Staphylococcus aureus (MRSA). Today the patient is scheduled to go back to the operating room for closure of the wound and further debridement. He denies any nausea, vomiting, diarrhea, fever or chills. His fever resolved within 24 hours. He was treated with vancomycin and clindamycin which were discontinued. PAST MEDICAL HISTORY: Is also significant for Iqvin-Deffthanr-Brtep syndrome (WPW), coronary artery disease with six stents, carotid stenosis, history of gastrointestinal (GI) bleeding, coronary artery bypass surgery. SOCIAL HISTORY: He denies smoking, drinking or drug use. He quit smoking. FAMILY HISTORY: Brother had pancreatic cancer and history of diabetes and coronary artery disease. ALLERGIES: LIPITOR, PLAVIX, HEPARIN, LACTOSE, NICOTINE, PIOGLITAZONE, ROSUVASTATIN. MEDICATIONS: Losartan 50 mg by mouth daily, Percocet one tablet by mouth every 6 as needed, Santyl on wound, multivitamin two tablets by mouth daily, pantoprazole 40 mg daily, Zetia 10 mg daily, Levemir 10 units subcu twice a day, vancomycin 1 gram IV every 24 hours, Tessalon as needed, Coreg 25 mg by mouth twice a day, ferrous sulfate 325 mg by mouth twice a day, insulin sliding scale hydralazine as needed elevated blood pressure systolic more than 160, Tylenol as needed, albuterol/Atrovent nebs. LABORATORY DATA: White count on admission was 17.7. 12/11 white count is 10.8, hemoglobin 8.4, hematocrit 25.8, platelets 340. Sodium 139, potassium 4, chloride 107, bicarb 25, BUN 23, creatinine 2.17 down from 2.6, glucose 91, calcium 8.1, CRP 6.87 which is down from 13.62, blood cultures were positive for group G strep. Wound cultures positive for MRSA and Group G strep. Chest x-ray Showed no acute disease on admission and followup chest x-ray done 48 hours later was also negative. Vascular ultrasound left lower extremity showed no evidence of deep venous thrombosis (DVT). On physical exam he is a pleasant elderly gentleman in no acute distress. Temperature is 98.3, pulse 67, respirations 19, blood pressure 151/87, O2 sat 94% on room air. Heart: Normal S1-S2. No murmurs, healed surgical scars. Lungs: Clear. No wheezes or rhonchi. Abdomen: Soft, nontender. No hepatosplenomegaly. Extremities: No clubbing, cyanosis, edema. Left toe has a ray amputation with sutures in place. There is erythema of the dorsal aspect of the foot. Pulse diminished but it could be felt on the dorsalis pedis. Neurologic exam: Cranial nerves intact upper and lower extremities. Strength normal. IMPRESSION: This is a 73-year-old gentleman with history of peripheral vascular disease, insulin dependent diabetes who developed acute osteomyelitis of the left toe and distal metatarsal status post ray amputation. The patient was septic from group G strep bacteremia and osteomyelitis of the toe with a coinfection of group G strep and MRSA. The patient is currently on IV vancomycin. I had discontinued clindamycin last night as there is no need to cover with 2 gram positive pathogens and worsen the risk of acquiring C difficile colitis. PLAN: Continue IV vancomycin to cover for MRSA and group G strep. The patient as going back to the operating room tonight for further debridement and closure of the wound. Will not need IV antibiotics at home as all the infected bone has been removed. Continue with IV vancomycin postoperatively then the patient could be discharged home on by mouth doxycycline which would cover group G strep and MRSA. Thank you for the consultation.
[2018-12-13] MEDS: HumaLOG INSULIN (NovoLOG) PER UNIT SC SCH ×4 (09:53→21:00)
[2018-12-13] MEDS: PANTOPRAZOLE 40MG TAB (PROTONIX) PO SCH (09:54)
[2018-12-13] MEDS: VANCOMYCIN HCL 1,000 MG, VIAL MATE ADAPTER 1 EACH in D5W 250 ML IV SCH (09:54)
[2018-12-13] MEDS: MULTIVITAMINS CHILDREN'S CHEWABLE TABLET PO SCH (09:54)
[2018-12-13] MEDS: FERROUS SULFATE 325MG TAB PO SCH ×2 (09:54→21:27)
[2018-12-13] MEDS: EZETIMIBE 10 MG TAB (ZETIA) PO SCH (09:54)
[2018-12-13] MEDS: LEVEMIR (INSULIN DETEMIR) 1 UNITS/0.01ML SC SCH ×2 (09:55→22:16)
[2018-12-13] MEDS: SANTYL OINT 30GM TOP SCH (09:55)
[2018-12-13] MEDS: CARVedilol 12.5 MG TAB PO SCH ×2 (09:58→22:16)
[2018-12-13] MEDS: LOSARTAN 50 MG TAB PO SCH (09:58)
[2018-12-13 11:15] VITALS: BP 180/64
[2018-12-13] MEDS ORDERED: **hydrALAZINE** 10 MG TAB PO ONE (11:30)
--- NOTE | 2018-12-13 12:36 | IPNPDOC ---
Date Seen The patient was seen on 12/13/18. Progress Note SUBJECTIVE: per ID, po doxycycline at hospital discharge. PT has not cleared the patient for discharge and will need to try stairs first. Hospital bed script given as the patient needs to position himself for better pain relief. Hgb7.3 no c/o sob, chest pain, pressure, dizziness. c/o some weakness. OBJECTIVE PHYSICAL EXAMINATION: VITAL SIGNS: Please see below GENERAL APPEARANCE: Resting HEENT: Normocephalic, PERRLA, Mucous moist, CARDIOVASCULAR: S1,S2, pulse present, regularly, regular, LUNGS: Equal air entry b/l, no wheezes or crackle, intermittent dry cough ABDOMEN: Soft, BS present, no tenderness, no guarding GENITOURINARY: No Kohler EXTREMITIES: patient underwent left foot sx 12/08/18. SKIN: Warm, No fever NEUROLOGICAL: Cranial nerves grossly intact PSYCHIATRIC: Normal mood and affect for current situation LABORATORY DATA, IMAGING STUDIES, MICROBIOLOGY: Please see below. 73-year-old who was in a few past medical history of [id number], coronary artery disease with 6 stent, cardiac and abdominal bypass, carotid stenosis, previous history of GI bleed who was sent by Dr. Polanco due to worsening of the left foot ulceration. Patient states that he had developed a lesion on his left foot couple of months ago which progressively worsened and followed up with Dr. Polanco as outpatient. Unfortunately for the past 2 days, he overworked his foot as he had chores in his yard. When he followed up with Dr. Polanco today patient's foot had drainage and lesion and wound looked worse therefore patient was sent to the hospital for further evaluation and treatment for cellulitis and to rule out osteo-myelitis. Patient states that the wound had purulent drainage in the office. Patient denied of any fever, diarrhea, or dysuria. He did have dry cough for 1 week duration. He mentioned that he is not a smoker but used to be a former smoker but does not utilize any inhalers or respiratory therapy. He developed some greenish phlegm and small amount mainly dry cough. Spoke to Dr. Polanco who will evaluate patient in the hospital and recommends MRI of the foot and antibiotic including vancomycin as he suspected Gram- positive organism. Assessment and plan: 73-year-old who was in a few past medical history of Wsnou-Szsvlxbfm-Xfvkl, coronary artery disease with 6 stent, cardiac and abdominal bypass, carotid stenosis, previous history of GI bleed who was sent by Dr. Polanco due to worsening of the left foot ulceration. Mri of foot showed osteomyelitis. CXR's showed no acute disease. Sx was delayed initially because pt was taking nitroglycerin for his esophageal spasm. Patient did not have chest pain at the time but troponin was drawn which show slight elevation. Enzyme trended down and cardiology was consult. Dr. García review Echo (per Dr. García: EF nml and no motion wall abnml) and repeat EKG(per dr. 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 Patient determined to have mod-high risk by cardiology but due to his osteomyelitis and bacteremia likely source from left foot, podiatry is on board and patient underwent left foot sx 12/08/18. Organism as mentioned below. Patient found to have bacteremia of Streptococcus group G but sensitive to vancomycin, Zosyn, and clindamycin. Patient was switched over to clindamycin. His biopsy cultures returned growing Streptococcus group G and staph aureus with culture sensitivity still pending at this time. Consult with ID in a.m. Left foot cellulitis, possible osteomyelitis -MRI of the foot:Findings consistent with osteomyelitis involving the distal aspect of the first metatarsal and possibly the medial corner of the base of the proximal phalanx of the great toe. There is no overlying skin ulcer evident and there is adjacent edema and some fluid. -Consult with Dr. Polanco (podiatry) -Initial ESR 126, CRP 13.6 -left leg us :neg for dvt -Mod-high risk for sx per cardiology but patient with bacteremia likely source from left foot osteomyelitis. -Echo (per Dr. García: EF nml and no motion wall abnml) and repeat EKG(per dr. 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 -po doxy as outpt at hospital discharge. stsill on iv vanco s/p vanco beads s/p debridement 12/12/18. anemia -due to chronic renal failure, chronic kidney disease, blood loss -hgb7.3, 2units rbc transfusion recheck h&H Lactic acidosis, leukocytosis -s/p IV fluid --Empiric antibiotic of Zosyn and vancomycin -Blood culture 2: STREPTOCOCCUS GROUP G sensitive to clindamycin, switch abx to clindamycin -Surgical biopsy: STREPTOCOCCUS GROUP G -Surgical culture: Streptococcus group G, Staphylococcus aureusawait sensitivity -Consult with ID Bacteremia -abx as above -repeat blood cx no growth to date Positive troponin -hx of A/CKD, bactermia, cardiac hx -ischemic demand -defer management to cardiology:hx GI bleed thus refused anticoagulant. Rec another statin in pravastatin, or Livalo might be a good choice for him. Co ntinue B+hammad and long acting nitrates Acute on chronic kidney disease stage III -IV fluid -Hold renal toxic medication -Monitor -F/u with Dr. Baugh as outpatient Diabetes -finger sick monitoring and coverage -Hemoglobin A1c 8.1 -Patient takes sliding scale of long-acting insulin today he took 60 units due to sugar being in the 200s but just a did not take any. Verify home insulin dosing and resumespoke to pharmacy could not come to a conclusion as to how much patient normally takes of his long-acting insulin. We will start off with 10 units twice a day with parameters and escalate as needed. Cough -Checks x-ray: no acute disease -Respiratory therapy as needed History of Qwzhj-Ufgdpaxjj-Woeju, coronary artery disease with 6 stent -Resume carvedilol -Resume Nitrostat -Resume Ezetimibe -Patient currently not on aspirin most likely secondary due to history of GI bleed, please follow with the PCP and primary cardiology as outpatient -Telemetry monitoring post surgery for arrhythmias. -EKG prior to sx: Heart rate of 85, sinus with occasional SVC, and as per cardiology no delta wave noted on the EKG. -Cardiology also mentioned that with WPW pt simple rate controlling b eta hammad can help assess if tachycardia develops. In rare cases of arrhythmia amiodarone and cardioversion as needed. Cardiology is available if needed. -Mod-high risk for sx per cardiology but patient with bacteremia likely source from left foot osteomyelitis. -Echo (per Dr. García: EF nml and no motion wall abnml) and repeat EKG(per dr. 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 -outpatient statin, f/u with cardiology as outpatient Hypertension -Carvedilol -Losartan (per cardio's note can be held day of sx, verify PRN) -Hold hydrochlorothiazide -As needed hydralazine History of GI bleed -resume iron supplement, pantoprazole Cardiac abdominal bypass history History of cardiac stenosis DVT prophylaxis with TIMOTHY and SCD once left LE neg for DVT Echo:1. Normal global left ventricular systolic function. There are some features of left ventricular diastolic dysfunction, grade 2. 2. Aortic valve sclerosis with mild aortic regurgitation but no aortic stenosis. 3. Mild mitral regurgitation with mildly enlarged left atrium. A dilated left atrium is most likely related to the underlying left ventricular diastolic dysfunction because there is no significant mitral regurgitation. 4. Mild to moderate mitral regurgitation with a mildly dilated left atrium. 5. Mild to moderate tricuspid regurgitation with moderate pulmonary hypertension. Need for Hospital bed: Pt's current medical issues requires positioning of the body not feasible with an ordinary bed to alleviate pain. DISPOSITION:awaiting PT clearance A-FIB/CHADSVASC A-FIB History Current/History of A-Fib/PAF?: No Current Oral Anticoagulant The: No VS, I&O, 24H, Fishbone Vital Signs/I&O Vital Signs Date Time Temp Pulse Resp B/P (MAP) Pulse Ox O2 Delivery O2 Flow Rate FiO2 12/13/18 11:49 180/64 12/13/18 11:15 63 12/13/18 10:33 18 12/13/18 06:00 98.1 96 I&O- Last 24 Hours up to 6 AM 12/13/18 06:00 Intake Total 2286 ml Output Total 1240 ml Balance 1046 ml Laboratory Data 24H LABS Laboratory Tests 2 12/12/18 16:29: Bedside Glucose (Misc Panel) 142H 12/12/18 20:54: Bedside Glucose (Misc Panel) 229H 12/13/18 05:50: Nucleated Red Blood Cells % (auto) 0.0, Erythrocyte Sedimentation Rate 128H, Anion Gap 3L, Glomerular Filtration Rate 34.9L, Blood Urea Nitrogen 18, Creatinine 2.01H, Sodium Level 139, Potassium Level 4.1, Chloride Level 109H, Carbon Dioxide Level 27, Calcium Level 7.9L, C-Reactive Protein, Quantitative 2.32H 12/13/18 12:14: Bedside Glucose (Misc Panel) 175H CBC/BMP Laboratory Tests 12/13/18 05:50 Red Blood Count 2.30 L, Mean Corpuscular Volume 99.1 H, Mean Corpuscular Hemoglobin 31.7, Mean Corpuscular Hemoglobin Concent 32.0, Red Cell Distribution Width 13.7, Calcium Level 7.9 L Microbiology Microbiology 12/08/18 Blood Culture - Preliminary, Resulted No Growth after 72 hours. All specime... 12/06/18 Blood Culture - Final, Complete Streptococcus Group G 12/06/18 Blood Culture - Final, Complete Streptococcus Group G 12/11/18 Gram Stain - Final, Complete 12/11/18 Wound Culture - Final, Complete 12/11/18 Anaerobic Culture - Final, Complete 12/08/18 Surgical Biopsy Culture - Final, Complete Streptococcus Group G 12/08/18 Anaerobic Culture - Final, Complete 12/08/18 Surgical Biopsy Culture - Final, Complete Streptococcus Group G Staph.aureus Methicillin Resis 12/08/18 Anaerobic Culture - Final, Complete FRANCOIS BELL MD December 13, 2018 12:32
[2018-12-13 12:55] VITALS: BP 184/66
[2018-12-13] MEDS ORDERED: cloNIDine 0.2 MG TAB PO ONE (13:00)
[2018-12-13] MEDS ORDERED: PERCOCET PO (13:03)
[2018-12-13] MEDS ORDERED: DOXY-350 PO (13:05)
[2018-12-13] MEDS ORDERED: INSUDET SC (13:07)
[2018-12-13] MEDS ORDERED: ISOS30TA4 PO (13:07)
[2018-12-13] MEDS ORDERED: HYDR-3910 PO (13:08)
[2018-12-13 15:00] VITALS: BP 118/30
--- NOTE | 2018-12-13 16:57 | IPN ---
DATE: 12/13/2018 Mr. Moore is doing fairly well. He is receiving a blood transfusion today and hopefully will be discharged home tomorrow. He denies any fever, chills, nausea, vomiting or diarrhea. No abdominal pain. LABORATORY DATA: White count is 10.2, hemoglobin 7.3, hematocrit 22.8 which is down from 25 2 days ago, platelets 337. Sodium 139, potassium 4.1, chloride 109, bicarbonate 27, BUN 18, creatinine 2.01, glucose 114, calcium 7.9, magnesium 1.9, CRP 2.32 which is down from 6.87. Wound culture was positive for group G Streptococcus and MRSA from the left big toe and blood cultures were positive for group G Streptococcus. Repeat cultures done on 12/11/2018 after a second revision were negative aerobically and anaerobically. On physical exam, temperature is 98.1, pulse 63, respirations 18, blood pressure 188/68. Heart: Normal S1, S2, no murmurs. Abdomen: Soft, nontender. Extremities right foot no ulcers, no lesions. Left big toe ray amputation with sutures in place. Minimal erythema around the sutures. Mild tenderness. IMPRESSION: 1. Acute osteomyelitis of the left big toe from group G Streptococcus and MRSA with secondary group G Streptococcus bacteremia. The patient has been on IV antibiotics for 7 days. He is currently on IV vancomycin 1 gram every 24 hours. The patient once cleared for discharge could be discharged home on by mouth doxycycline for 5-7 days. 2. Acute kidney injury. Creatinine has improved from 2.6 to 2.01. 3. Dry calloused feet. The patient was advised to use Eucerin regularly once or twice a day. PLAN: If the patient is discharged home tomorrow, discontinue IV vancomycin and switch him to by mouth doxycycline 100 mg by mouth twice a day for 5-7 days. MTDD
[2018-12-13] MEDS: ISOSORBIDE DIN. (ISORDIL) 30 MG TAB PO SCH (18:17)
[2018-12-13] MEDS: cloNIDine 0.1 MG TAB PO SCH (18:17)
[2018-12-13 22:00] VITALS: BP 162/64
[2018-12-13 22:20] LABS: HEMATOCRIT 31.3 % (42.0-52.0)
[2018-12-13 22:24] LABS: HEMOGLOBIN 10.2 g/dl (13.5-17.5)
[2018-12-14] VITALS (9 sets, daily range): BP systolic 152–208; BP diastolic 56–78
[2018-12-14] MEDS: ISOSORBIDE DIN. (ISORDIL) 30 MG TAB PO SCH ×3 (01:07→12:25)
[2018-12-14] MEDS: cloNIDine 0.1 MG TAB PO SCH ×3 (01:08→12:24)
[2018-12-14] MEDS: PERCOCET 5MG/325MG TAB PO PRN (01:14)
[2018-12-14] MEDS: LEVEMIR (INSULIN DETEMIR) 1 UNITS/0.01ML SC SCH ×2 (07:49→21:00)
[2018-12-14] MEDS: VANCOMYCIN HCL 1,000 MG, VIAL MATE ADAPTER 1 EACH in D5W 250 ML IV SCH (07:50)
[2018-12-14] MEDS: EZETIMIBE 10 MG TAB (ZETIA) PO SCH (07:50)
[2018-12-14] MEDS: HumaLOG INSULIN (NovoLOG) PER UNIT SC SCH ×4 (07:50→21:00)
[2018-12-14] MEDS: MULTIVITAMINS CHILDREN'S CHEWABLE TABLET PO SCH (07:50)
[2018-12-14] MEDS: CARVedilol 12.5 MG TAB PO SCH (07:51)
[2018-12-14] MEDS: PANTOPRAZOLE 40MG TAB (PROTONIX) PO SCH (07:51)
[2018-12-14] MEDS: FERROUS SULFATE 325MG TAB PO SCH ×2 (07:51→22:13)
[2018-12-14] MEDS: LOSARTAN 50 MG TAB PO SCH (07:51)
[2018-12-14] MEDS: SANTYL OINT 30GM TOP SCH (07:52)
[2018-12-14] MEDS ORDERED: ISOS40TASA PO (12:42)
[2018-12-14] MEDS ORDERED: ISOSORBIDE DIN. (ISORDIL) 20 MG TAB PO ONE (12:45)
[2018-12-14] MEDS ORDERED: DOXY-350 PO (12:46)
[2018-12-14] MEDS ORDERED: ISOSORBIDE DIN (ISORDIL) 10 MG TAB PO ONE (13:00)
[2018-12-14] MEDS ORDERED: cloNIDine 0.1 MG TAB PO ONE (15:45)
[2018-12-14] MEDS ORDERED: amLODIPine 10 MG TAB PO ONE (15:45)
[2018-12-14] MEDS ORDERED: ISOSORBIDE DIN. (ISORDIL) 20 MG TAB PO SCH ×2 (16:00→19:00)
--- NOTE | 2018-12-14 16:02 | REP ---
CT Head without contrast HISTORY: Slurred speech COMPARISON: None Areas of decreased attenuation are present in the periventricular and subcortical white matter. This represents small-vessel ischemic disease. There is no intraparenchymal hemorrhage, acute infarct, mass or midline shift. The ventricular system and cortical sulci as well as subarachnoid space in the posterior fossa are dilated consistent with mild volume loss. There is no extra cerebral collection. There is no fracture. The visualized sinuses are clear. IMPRESSION: 1. Small vessel ischemic disease. 2. Mild volume loss. Electronically Signed by Aly Radford MD 12/14/2018 03:54 P
[2018-12-14] MEDS ORDERED: MINOXIDIL 10 MG TAB PO ONE (17:00)
[2018-12-14] MEDS ORDERED: PILL CRUSHER/CUTTER 1 EACH XX PRN (17:15)
--- NOTE | 2018-12-14 17:15 | IPNPDOC ---
Date Seen The patient was seen on 12/14/18. Progress Note SUBJECTIVE:Discharge postponed yesterday due to severe anemia requiring 2 units rbc transfusion without overt gi bleed. BP was uncontrolled requiring titration of his bp meds. Despite high sbp, pt denied any pain in his foot and was adequately treated with pain meds.He denied any headache, chest pain, changes in vision despite sbp 180mmHg. He noticed slurring of speech CT head negative. OBJECTIVE PHYSICAL EXAMINATION: VITAL SIGNS: Please see below GENERAL APPEARANCE: Resting HEENT: Normocephalic, PERRLA, Mucous moist, CARDIOVASCULAR: S1,S2, pulse present, regularly, regular, LUNGS: Equal air entry b/l, no wheezes or crackle, intermittent dry cough ABDOMEN: Soft, BS present, no tenderness, no guarding GENITOURINARY: No Kohler EXTREMITIES: patient underwent left foot sx 12/08/18. SKIN: Warm, No fever NEUROLOGICAL: Cranial nerves grossly intact PSYCHIATRIC: Normal mood and affect for current situation LABORATORY DATA, IMAGING STUDIES, MICROBIOLOGY: Please see below. 73-year-old who was in a few past medical history of Sdvtt-Dtxgrwszk-Hzqqg, coronary artery disease with 6 stent, cardiac and abdominal bypass, carotid stenosis, previous history of GI bleed who was sent by Dr. Polanco due to worsening of the left foot ulceration. Patient states that he had developed a lesion on his left foot couple of months ago which progressively worsened and followed up with Dr. Polanco as outpatient. Unfortunately for the past 2 days, he overworked his foot as he had chores in his yard. When he followed up with Dr. Polanco today patient's foot had drainage and lesion and wound looked worse therefore patient was sent to the hospital for further evaluation and treatment for cellulitis and to rule out osteo-myelitis. Patient states that the wound had purulent drainage in the office. Patient denied of any fever, diarrhea, or dysuria. He did have dry cough for 1 week duration. He mentioned that he is not a smoker but used to be a former smoker but does not utilize any inhalers or respiratory therapy. He developed some greenish phlegm and small amount mainly dry cough. Spoke to Dr. Polanco who will evaluate patient in the hospital and recommends MRI of the foot and antibiotic including vancomycin as he suspected Gram- positive organism. Assessment and plan: 73-year-old who was in a few past medical history of Idfvj-Gcqvapgza-Qupfm, coronary artery disease with 6 stent, cardiac and abdominal bypass, carotid stenosis, previous history of GI bleed who was sent by Dr. Polanco due to worsening of the left foot ulceration. Mri of foot showed osteomyelitis. CXR's showed no acute disease. Sx was delayed initially because pt was taking nitroglycerin for his esophageal spasm. Patient did not have chest pain at the time but troponin was drawn which show slight elevation. Enzyme trended down and cardiology was consult. Dr. García review Echo (per Dr. García: EF nml and no motion wall abnml) and repeat EKG(per dr. 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 Patient determined to have mod-high risk by cardiology but due to his osteomyelitis and bacteremia likely source from left foot, podiatry is on board and patient underwent left foot sx 12/08/18. Organism as mentioned below. Patient found to have bacteremia of Streptococcus group G but sensitive to vancomycin, Zosyn, and clindamycin. Patient was switched over to clindamycin. His biopsy cultures returned growing Streptococcus group G and staph aureus with culture sensitivity still pending at this time. Consult with ID in a.m. Left foot osteomyelitis -MRI of the foot:Findings consistent with osteomyelitis involving the distal aspect of the first metatarsal and possibly the medial corner of the base of the proximal phalanx of the great toe. There is no overlying skin ulcer evident and there is adjacent edema and some fluid. -Consulted with Dr. Polanco (podiatry) s/p ray's amputation -Initial ESR 126, CRP 13.6 -left leg us :neg for dvt -Mod-high risk for sx per cardiology but patient with bacteremia likely source from left foot osteomyelitis. -Echo (per Dr. García: EF nml and no motion wall abnml) and repeat EKG(per dr. 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 -po doxy as outpt at hospital discharge. stsill on iv vanco s/p vanco beads s/p debridement 12/12/18. anemia -due to chronic renal failure, chronic kidney disease, blood loss -hgb7.3, 2units rbc transfusion recheckedh&H which increased to 10mg/dL Lactic acidosis, leukocytosis -s/p IV fluid --Empiric antibiotic of Zosyn and vancomycin -Blood culture 2: STREPTOCOCCUS GROUP G sensitive to clindamycin, switch abx to clindamycin -Surgical biopsy: STREPTOCOCCUS GROUP G -Surgical culture: Streptococcus group G, Staphylococcus aureusawait sensitivity -Consult with ID Bacteremia -abx as above -repeat blood cx no growth to date Positive troponin -hx of A/CKD, bactermia, cardiac hx -ischemic demand -defer management to cardiology:hx GI bleed thus refused anticoagulant. Rec another statin in pravastatin, or Livalo might be a good choice for him. Continue B+hammad and long acting nitrates Acute on chronic kidney disease stage III -IV fluid -Hold renal toxic medication -Monitor -F/u with Dr. Baugh as outpatient Diabetes -finger sick monitoring and coverage -Hemoglobin A1c 8.1 -Patient takes sliding scale of long-acting insulin today he took 60 units due to sugar being in the 200s but just a did not take any. Verify home insulin dosing and resumespoke to pharmacy could not come to a conclusion as to how much patient normally takes of his long-acting insulin. We will start off with 10 units twice a day with parameters and escalate as needed. Cough -Checks x-ray: no acute disease -Respiratory therapy as needed History of Lqort-Bktcopguo-Rkoiq, coronary artery disease with 6 stent -Resume carvedilol -Resume Nitrostat -Resume Ezetimibe -Patient currently not on aspirin most likely secondary due to history of GI bleed, please follow with the PCP and primary cardiology as outpatient -Telemetry monitoring post surgery for arrhythmias. -EKG prior to sx: Heart rate of 85, sinus with occasional SVC, and as per c ardiology no delta wave noted on the EKG. -Cardiology also mentioned that with WPW pt simple rate controlling beta hammad can help assess if tachycardia develops. In rare cases of arrhythmi a amiodarone and cardioversion as needed. Cardiology is available if needed. -Mod-high risk for sx per cardiology but patient with bacteremia likely source from left foot osteomyelitis. -Echo (per Dr. García: EF nml and no motion wall abnml) and repeat EKG(per dr. 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 -outpatient statin, f/u with cardiology as outpatient Hypertension, difficult to control -Carvedilol 25 bid -Losartan 50 mg daily -isosorbide, minoxidil, s/p hydralazine. Acute Hypertensive Encephalopathy with slurred speech CT head negative s/p minoxidil, clonidine, hydralazine on coreg, losartan History of GI bleed -resume iron supplement, pantoprazole Cardiac abdominal bypass history History of cardiac stenosis DVT prophylaxis with TIMOTHY and SCD once left LE neg for DVT Echo:1. Normal global left ventricular systolic function. There are some features of left ventricular diastolic dysfunction, grade 2. 2. Aortic valve sclerosis with mild aortic regurgitation but no aortic stenosis. 3. Mild mitral regurgitation with mildly enlarged left atrium. A dilated left atrium is most likely related to the underlying left ventricular diastolic dysfunction because there is no significant mitral regurgitation. 4. Mild to moderate mitral regurgitation with a mildly dilated left atrium. 5. Mild to moderate tricuspid regurgitation with moderate pulmonary hypertension. Need for Hospital bed: Pt's current medical issues requires positioning of the body not feasible with an ordinary bed to alleviate pain. DISPOSITION: passed HSE but awaiting improvement in HTN. A-FIB/CHADSVASC A-FIB History Current/History of A-Fib/PAF?: No Current Oral Anticoagulant The: No VS, I&O, 24H, Fishbone Vital Signs/I&O Vital Signs Date Time Temp Pulse Resp B/P (MAP) Pulse Ox O2 Delivery O2 Flow Rate FiO2 12/14/18 15:59 52 158/56 12/14/18 14:00 96.9 17 94 I&O- Last 24 Hours up to 6 AM 12/14/18 06:00 Intake Total 1280 ml Output Total 1225 ml Balance 55 ml Laboratory Data 24H LABS Laboratory Tests 2 12/13/18 17:38: Bedside Glucose (Misc Panel) 141H 12/13/18 21:31: Bedside Glucose (Misc Panel) 177H 12/14/18 06:12: Bedside Glucose (Misc Panel) 116H 12/14/18 11:21: Bedside Glucose (Misc Panel) 149H CBC/BMP Laboratory Tests 12/13/18 22:14 Microbiology Microbiology 12/08/18 Blood Culture - Final, Complete NO GROWTH AFTER 5 DAYS 12/06/18 Blood Culture - Final, Complete Streptococcus Group G 12/06/18 Blood Culture - Final, Complete Streptococcus Group G 12/11/18 Gram Stain - Final, Complete 12/11/18 Wound Culture - Final, Complete 12/11/18 Anaerobic Culture - Final, Complete 12/08/18 Surgical Biopsy Culture - Final, Complete Streptococcus Group G 12/08/18 Anaerobic Culture - Final, Complete 12/08/18 Surgical Biopsy Culture - Final, Complete Streptococcus Group G Staph.aureus Methicillin Resis 12/08/18 Anaerobic Culture - Final, Complete FRANCOIS BELL MD December 14, 2018 16:52
[2018-12-14] MEDS ORDERED: hydrALAZINE INJ 20 MG/ML VIAL IV STA (17:41)
[2018-12-14] MEDS ORDERED: LOSARTAN 50 MG TAB PO ONE (17:45)
[2018-12-14 17:46] LABS: CALCIUM LEVEL 8.2 MG/DL (8.8-10.2); CREATININE FOR GFR 2.04 MG/DL (0.70-1.30); GLOMERULAR FILTRATION RATE 34.3 (>42); POTASSIUM SERUM 4.5 MEQ/L (3.5-5.1)
--- NOTE | 2018-12-14 17:47 | IPNPDOC ---
Text Note Date of Service The patient was seen on 12/14/18. NOTE SUBJECTIVE: Mrs. Mooer is doing well. He was disappointed that he was unable to go home. He is looking forward to going home sometime this weekend. Denies any chest pain, denies any headaches, denies any dizziness, denies abdominal pain. Continues to have foot pain when touched on left foot. OBJECTIVE: PHYSICAL EXAMINATION: GENERAL APPEARANCE: Alert no acute distress. ENT: Palate intact, kingsley tympanic membrane no bulging, no erythema, Neck supple, no thyromegaly THORAX: Symmetrical. LUNGS: Clear to auscultation bilaterally. HEART: Normal S1, S2. No murmurs, no rubs, no gallops ABDOMEN: Soft. No masses. Bowel sounds are present. EXTREMITIES: Moves all extremities equally. Status post large toe amputation of patient's left foot. Sutures in place, no erythema, no signs of infection. LABORATORY DATA: Please see below. ASSESSMENT AND PLAN: Acute osteomyelitis of the left big toe from group G Streptococcus and MRSA with secondary group G Streptococcus bacteremia. Status post amputation. DC vancomycin today, and start patient on doxycycline 100 mg by mouth twice a day. If patient is discharged. Please continue doxycycline for total of 7 days. VS,Fishbone, I+O VS, Fishbone, I+O Laboratory Tests 12/13/18 22:14 Vital Signs Date Time Temp Pulse Resp B/P (MAP) Pulse Ox O2 Delivery O2 Flow Rate FiO2 12/14/18 17:36 62 208/78 (121) 12/14/18 14:00 96.9 17 94 I&O- Last 24 Hours up to 6 AM 12/14/18 06:00 Intake Total 1280 ml Output Total 1225 ml Balance 55 ml GME ATTESTATION GME ATTESTATION My faculty preceptor for this patient encounter was physically present during the encounter and was fully available. All aspects of the patient interview, examination, medical decision making process, and medical care plan development were reviewed and approved by the faculty preceptor. The faculty preceptor is aware and concurs with the plan as stated in the body of this note and will attest to such by his/her cosignature. ROVERTO CHAN DO December 14, 2018 17:47
[2018-12-14] MEDS: NITROGLYCERIN 2% OINT 1 GM *U/D* PKT TOP SCH ×2 (18:11→22:13)
[2018-12-14] MEDS: hydrALAZINE INJ 20 MG/ML VIAL IV SCH ×2 (18:33→22:14)
[2018-12-14] MEDS: DOXYCYCLINE HYCLATE 100 MG TAB PO SCH (22:13)
[2018-12-15] VITALS (7 sets, daily range): BP systolic 138–178; BP diastolic 52–75
--- NOTE | 2018-12-15 00:44 | TRANSCARE ---
Transition of Care: Transition of Care Was contacted by nursing that patient has chest pressure developing 12/14/18 night around 10:50pm. BP 160s/60s with other vital signs stable. Stat EKG and trop was ordered. Compared with prior EKG and no acute changes noted; trop returned to be<0.02. Pt has hx of CAD with 6 stents with home med sublingual nitro PRN. Patient reported chest pain subsided after receiving nitro patch. Pt already has morphine PRN pain ordered which may be used if chest pain not controlled with nitro patch and nitro sublingual. Follow up with trop in 8 hours. Continue to monitor the patient closely. GME ATTESTATION GME ATTESTATION My faculty preceptor for this patient encounter was physically present during the encounter and was fully available. All aspects of the patient interview, examination, medical decision making process, and medical care plan development were reviewed and approved by the faculty preceptor. The faculty preceptor is aware and concurs with the plan as stated in the body of this note and will attest to such by his/her cosignature. NERY DALEY DO December 15, 2018 00:44
[2018-12-15] MEDS: NITROGLYCERIN 2% OINT 1 GM *U/D* PKT TOP SCH ×2 (02:31→06:12)
[2018-12-15] MEDS: hydrALAZINE INJ 20 MG/ML VIAL IV SCH ×2 (02:32→06:12)
[2018-12-15] MEDS: PERCOCET 5MG/325MG TAB PO PRN ×2 (04:32→19:30)
[2018-12-15 06:46] LABS: BASO # 0.1 10^3/uL (0.0-0.2); BASO % 1.1 % (0.0-1.0); EOS # 0.4 10^3/uL (0.0-0.50); EOS % 2.9 % (0.0-3.0); HEMATOCRIT 31.1 % (42.0-52.0); HEMOGLOBIN 10.4 g/dl (13.5-17.5); LYMPH # 1.5 10^3/uL (1.5-4.5); LYMPH % 11.9 % (24.0-44.0); MEAN CORPUSCULAR HEMOGLOBIN 31.3 pg (27.0-33.0); MEAN CORPUSCULAR HGB CONC 33.4 g/dl (32.0-36.5); MEAN CORPUSCULAR VOLUME 93.7 fl (80.0-96.0); MONO # 0.9 10^3/uL (0.0-0.8); MONO % 7.1 % (0.0-5.0); NEUTROPHILS # 9.3 10^3/uL (1.8-7.7); NEUTROPHILS % 73.3 % (36.0-66.0); PLATELET COUNT, AUTOMATED 421 10^3/uL (150-450); RED BLOOD COUNT 3.32 10^6/uL (4.30-6.10); WHITE BLOOD COUNT 12.7 10^3/uL (4.0-10.0)
[2018-12-15 06:50] LABS: BLOOD UREA NITROGEN 22 MG/DL (7-18); CALCIUM LEVEL 8.5 MG/DL (8.8-10.2); CARBON DIOXIDE LEVEL 23 MEQ/L (21-32); CHLORIDE LEVEL 107 MEQ/L (98-107); CPK CREATINE PHOSPHOKINASE 42 U/L (39-308); CREATININE FOR GFR 2.15 MG/DL (0.70-1.30); GLOMERULAR FILTRATION RATE 32.3 (>42); GLUCOSE, FASTING 146 MG/DL (70-100); MB/CK RELATIVE INDEX 2.62 (< OR =4); POTASSIUM SERUM 4.7 MEQ/L (3.5-5.1); SODIUM LEVEL 137 MEQ/L (136-145); TROPONIN I < 0.02 NG/ML (< 0.10)
[2018-12-15] MEDS: HumaLOG INSULIN (NovoLOG) PER UNIT SC SCH ×4 (07:32→21:00)
[2018-12-15 08:12] LABS: MAGNESIUM LEVEL 2.1 MG/DL (1.8-2.4)
[2018-12-15] MEDS ORDERED: ISOSORBIDE MON. (IMDUR) 30 MG XR TAB PO ONE (08:15)
[2018-12-15] MEDS: SANTYL OINT 30GM TOP SCH ×2 (09:00→09:08)
[2018-12-15] MEDS: LEVEMIR (INSULIN DETEMIR) 1 UNITS/0.01ML SC SCH ×2 (09:06→20:48)
[2018-12-15] MEDS: FERROUS SULFATE 325MG TAB PO SCH ×2 (09:07→20:47)
[2018-12-15] MEDS: PANTOPRAZOLE 40MG TAB (PROTONIX) PO SCH (09:07)
[2018-12-15] MEDS: MULTIVITAMINS CHILDREN'S CHEWABLE TABLET PO SCH (09:07)
[2018-12-15] MEDS: LOSARTAN 50 MG TAB PO SCH ×2 (09:07→20:47)
[2018-12-15] MEDS: EZETIMIBE 10 MG TAB (ZETIA) PO SCH (09:08)
[2018-12-15] MEDS ORDERED: COZA50TA PO (09:17)
[2018-12-15] MEDS ORDERED: CARV25TA PO (09:26)
[2018-12-15] MEDS ORDERED: LOSA50TA5 PO (09:26)
[2018-12-15] MEDS ORDERED: ISOS120T7 PO (09:26)
[2018-12-15] MEDS ORDERED: CARVedilol 12.5 MG TAB PO ONE (09:30)
--- NOTE | 2018-12-15 09:32 | IPNPDOC ---
Date Seen The patient was seen on 12/15/18. Progress Note Progress Note SUBJECTIVE: pt was transferred to pcu due to htn urgency 12/15/18 [id number] given nitro patch, hydralazine and continued on coreg and losartan with improvement to 148 mmHg systolic today. no c/o h/a or changes in vision. c/o heart burn yesterday evaluated for chest pain with EKG and negative trop. 4 beats of NSVT vs SVT with aberrancy with known history of WPW. coreg initially held yesterday due to bradycardia, but resumed today due to improvement in HR and h/o WPW and risk of uncontrolled rate. Pt is anxious for discharge, but meds still being titrated for better control. OBJECTIVE PHYSICAL EXAMINATION: VITAL SIGNS: Please see below GENERAL APPEARANCE: Resting HEENT: Normocephalic, PERRLA, Mucous moist, CARDIOVASCULAR: S1,S2, pulse present, regularly, regular, LUNGS: Equal air entry b/l, no wheezes or crackle, intermittent dry cough ABDOMEN: Soft, BS present, no tenderness, no guarding GENITOURINARY: No Kohler EXTREMITIES: patient underwent left foot sx 12/08/18. SKIN: Warm, No fever NEUROLOGICAL: Cranial nerves grossly intact PSYCHIATRIC: Normal mood and affect for current situation LABORATORY DATA, IMAGING STUDIES, MICROBIOLOGY: Please see below. 73-year-old who was in a few past medical history of Rvmmm-Ygwxfitvd-Jupbw, coronary artery disease with 6 stent, cardiac and abdominal bypass, carotid stenosis, previous history of GI bleed who was sent by Dr. Polanco due to worsening of the left foot ulceration. Patient states that he had developed a lesion on his left foot couple of months ago which progressively worsened and followed up with Dr. Polanco as outpatient. Unfortunately for the past 2 days, he overworked his foot as he had chores in his yard. When he followed up with Dr. Polanco today patient's foot had drainage and lesion and wound looked worse therefore patient was sent to the hospital for further evaluation and treatment for cellulitis and to rule out osteo-myelitis. Patient states that the wound had purulent drainage in the office. Patient denied of any fever, diarrhea, or dysuria. He did have dry cough for 1 week duration. He mentioned that he is not a smoker but used to be a former smoker but does not utilize any inhalers or respiratory therapy. He developed some greenish phlegm and small amount mainly dry cough. Spoke to Dr. Polanco who will evaluate patient in the hospital and recommends MRI of the foot and antibiotic including vancomycin as he suspected Gram- positive organism. Assessment and plan: 73-year-old who was in a few past medical history of Sdrfi-Chyobglns-Vlbhy, coronary artery disease with 6 stent, cardiac and abdominal bypass, carotid stenosis, previous history of GI bleed who was sent by Dr. Polanco due to worsening of the left foot ulceration. Mri of foot showed osteomyelitis. CXR's showed no acute disease. Sx was delayed initially because pt was taking nitroglycerin for his esophageal spasm. Patient did not have chest pain at the time but troponin was drawn which show slight elevation. Enzyme trended down and cardiology was consult. Dr. García review Echo (per Dr. García: EF nml and no motion wall abnml) and repeat EKG(per dr. 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 Patient determined to have mod-high risk by cardiology but due to his osteomyelitis and bacteremia likely source from left foot, podiatry is on board and patient underwent left foot sx 12/08/18. Organism as mentioned below. Patient found to have bacteremia of Streptococcus group G but sensitive to vancomycin, Zosyn, and clindamycin. Patient was switched over to clindamycin. His biopsy cultures returned growing Streptococcus group G and staph aureus with culture sensitivity still pending at this time. Consult with ID in a.m. Left foot osteomyelitis -MRI of the foot:Findings consistent with osteomyelitis involving the distal aspect of the first metatarsal and possibly the medial corner of the base of the proximal phalanx of the great toe. There is no overlying skin ulcer evident and there is adjacent edema and some fluid. -Consulted with Dr. Polanco (podiatry) s/p ray's amputation -Initial ESR 126, CRP 13.6 -left leg us :neg for dvt -Mod-high risk for sx per cardiology but patient with bacteremia likely source from left foot osteomyelitis. -Echo (per Dr. García: EF nml and no motion wall abnml) and repeat EKG(per dr. 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 -po doxy as outpt at hospital discharge. stsill on iv vanco s/p vanco beads s/p debridement 12/12/18. anemia -due to chronic renal failure, chronic kidney disease, blood loss -hgb7.3, 2units rbc transfusion recheckedh&H which increased to 10mg/dL Lactic acidosis, leukocytosis -s/p IV fluid --Empiric antibiotic of Zosyn and vancomycin -Blood culture 2: STREPTOCOCCUS GROUP G sensitive to clindamycin, switch abx to clindamycin -Surgical biopsy: STREPTOCOCCUS GROUP G -Surgical culture: Streptococcus group G, Staphylococcus aureusawait sensitivity -Consult with ID Bacteremia -abx as above -repeat blood cx no growth to date Positive troponin -hx of A/CKD, bactermia, cardiac hx -ischemic demand -defer management to cardiology:hx GI bleed thus refused anticoagulant. Rec another statin in pravastatin, or Livalo might be a good choice for him. Continue B+hammad and long acting nitrates Acute on chronic kidney disease stage III -IV fluid -Hold renal toxic medication -Monitor -F/u with Dr. Baugh as outpatient Diabetes -finger sick monitoring and coverage -Hemoglobin A1c 8.1 -Patient takes sliding scale of long-acting insulin today he took 60 units due to sugar being in the 200s but just a did not take any. Verify home insulin dosing and resumespoke to pharmacy could not come to a conclusion as to how much patient normally takes of his long-acting insulin. We will start off with 10 units twice a day with parameters and escalate as needed. Cough -Checks x-ray: no acute disease -Respiratory therapy as needed History of Ppgid-Vvxmtrzmr-Jvqsw, coronary artery disease with 6 stent -Resume carvedilol -Resume Nitrostat -Resume Ezetimibe -Patient currently not on aspirin most likely secondary due to history of GI bleed, please follow with the PCP and primary cardiology as outpatient -Telemetry monitoring post surgery for arrhythmias. -EKG prior to sx: Heart rate of 85, sinus with occasional SVC, and as per c ardiology no delta wave noted on the EKG. -Cardiology also mentioned that with WPW pt simple rate controlling beta hammad can help assess if tachycardia develops. In rare cases of arrhythmi a amiodarone and cardioversion as needed. Cardiology is available if needed. -Mod-high risk for sx per cardiology but patient with bacteremia likely source from left foot osteomyelitis. -Echo (per Dr. Ricky: EF nml and no motion wall abnml) and repeat EKG(per dr. 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 -outpatient statin, f/u with cardiology as outpatient Hypertensive URgency -Carvedilol 25 bid -Losartan 50 mg daily -isosorbide, minoxidil, s/p hydralazine. -pt was transferred to pcu due to htn urgency 12/15/18 [id number] given nitro patch, hydralazine and continued on coreg and losartan with improvement to 148 mmHg systolic today. no c/o h/a or changes in vision. c/o heart burn yesterday evalu ated for chest pain with EKG and negative trop. 4 beats of NSVT vs SVT with aberrancy with known history of WPW. coreg initially held yesterday due to bradycardia, but resumed today due to improvement in HR and h/o WPW and risk of uncontrolled rate. Pt is anxious for discharge, but meds still being titrated for better control. Acute Hypertensive Encephalopathy with slurred speech CT head negative s/p minoxidil, clonidine, hydralazine on coreg, losartan History of GI bleed -resume iron supplement, pantoprazole Cardiac abdominal bypass history History of cardiac stenosis DVT prophylaxis with TIMOTHY and SCD once left LE neg for DVT disposition: may dc home if sbp<140 A-FIB/CHADSVASC A-FIB History Current/History of A-Fib/PAF?: No Current Oral Anticoagulant The: No VS, I&O, 24H, Fishbone Vital Signs/I&O Vital Signs Date Time Temp Pulse Resp B/P (MAP) Pulse Ox O2 Delivery O2 Flow Rate FiO2 12/15/18 09:07 148/68 12/15/18 08:00 97.3 69 18 93 12/15/18 06:15 1.0 I&O- Last 24 Hours up to 6 AM 12/15/18 06:00 Intake Total 1180 ml Output Total 400 ml Balance 780 ml Laboratory Data 24H LABS Laboratory Tests 2 12/14/18 11:21: Bedside Glucose (Misc Panel) 149H 12/14/18 17:13: Anion Gap 1L, Glomerular Filtration Rate 34.3L, Blood Urea Nitrogen 18, Creatinine 2.04H, Sodium Level 136, Potassium Level 4.5, Chloride Level 106, Carbon Dioxide Level 29, Calcium Level 8.2L 12/14/18 17:15: Bedside Glucose (Misc Panel) 110 12/14/18 20:33: Bedside Glucose (Misc Panel) 141H 12/14/18 23:05: Troponin I < 0.02 12/15/18 05:31: Immature Granulocyte % (Auto) 3.7H, White Blood Count 12.7H, Red Blood Count 3.32L, Hemoglobin 10.4L, Hematocrit 31.1L, Mean Corpuscular Volume 93.7, Mean Corpuscular Hemoglobin 31.3, Mean Corpuscular Hemoglobin Concent 33.4, Red Cell Distribution Width 16.6H, Platelet Count 421, Neutrophils (%) (Auto) 73.3H, Lymphocytes (%) (Auto) 11.9L, Monocytes (%) (Auto) 7.1H, Eosinophils (%) (Auto) 2.9, Basophils (%) (Auto) 1.1H, Neutrophils # (Auto) 9.3H, Lymphocytes # (Auto) 1.5, Monocytes # (Auto) 0.9H, Eosinophils # (Auto) 0.4, Basophils # (Auto) 0.1, Nucleated Red Blood Cells % (auto) 0.2H 12/15/18 05:34: Troponin I < 0.02, Anion Gap 7L, Glomerular Filtration Rate 32.3L, Blood Urea Nitrogen 22H, Creatinine 2.15H, Sodium Level 137, Potassium Level 4.7, Chloride Level 107, Carbon Dioxide Level 23, Calcium Level 8.5L, Total Creatine Kinase 42, Magnesium Level 2.1, Creatine Kinase MB 1.0, Creatine Kinase MB Relative Index 2.62 CBC/BMP Laboratory Tests 12/14/18 17:13 Calcium Level 8.2 L 12/15/18 05:31 Red Blood Count 3.32 L, Mean Corpuscular Volume 93.7, Mean Corpuscular Hemoglobin 31.3, Mean Corpuscular Hemoglobin Concent 33.4, Red Cell Distribution Width 16.6 H, Neutrophils (%) (Auto) 73.3 H, Lymphocytes (%) (Auto) 11.9 L, Monocytes (%) (Auto) 7.1 H, Eosinophils (%) (Auto) 2.9, Basophils (%) (Auto) 1.1 H, Neutrophils # (Auto) 9.3 H, Lymphocytes # (Auto) 1.5, Monocytes # (Auto) 0.9 H, Eosinophils # (Auto) 0.4, Basophils # (Auto) 0.1 12/15/18 05:34 Calcium Level 8.5 L, Total Creatine Kinase 42 Microbiology Microbiology 12/08/18 Blood Culture - Final, Complete NO GROWTH AFTER 5 DAYS 12/06/18 Blood Culture - Final, Complete Streptococcus Group G 12/06/18 Blood Culture - Final, Complete Streptococcus Group G 12/11/18 Gram Stain - Final, Complete 12/11/18 Wound Culture - Final, Complete 12/11/18 Anaerobic Culture - Final, Complete 12/08/18 Surgical Biopsy Culture - Final, Complete Streptococcus Group G 12/08/18 Anaerobic Culture - Final, Complete 12/08/18 Surgical Biopsy Culture - Final, Complete Streptococcus Group G Staph.aureus Methicillin Resis 12/08/18 Anaerobic Culture - Final, Complete FRANCOIS BELL MD December 15, 2018 09:32
[2018-12-15] MEDS: DOXYCYCLINE HYCLATE 100 MG TAB PO SCH ×2 (09:57→20:47)
[2018-12-15] MEDS ORDERED: **hydrALAZINE** 50 MG TAB PO SCH (12:00)
[2018-12-15 14:41] LABS: CPK CREATINE PHOSPHOKINASE 62 U/L (39-308); TROPONIN I < 0.02 NG/ML (< 0.10)
--- NOTE | 2018-12-15 16:26 | ECGEPIP ---
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
--- NOTE | 2018-12-15 16:28 | ECGEPIP ---
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
[2018-12-15] MEDS ORDERED: SLF 3 ML SYR IV PRN (19:00)
[2018-12-15] MEDS ORDERED: CARVedilol 12.5 MG TAB PO SCH (21:00)
[2018-12-15 21:26] LABS: CK-MB VALUE MASS < 1.0 NG/ML (<3.6); CPK CREATINE PHOSPHOKINASE 47 U/L (39-308); MB/CK RELATIVE INDEX 2.13 (< OR =4); TROPONIN I < 0.02 NG/ML (< 0.10)
[2018-12-15] MEDS: SLF 3 ML SYR IV SCH (22:23)
[2018-12-16 02:00] VITALS: BP 165/64
[2018-12-16 04:00] VITALS: BP 150/55
[2018-12-16] MEDS: SLF 3 ML SYR IV SCH (05:55)
[2018-12-16 06:09] LABS: BASO # 0.1 10^3/uL (0.0-0.2); BASO % 1.1 % (0.0-1.0); EOS # 0.3 10^3/uL (0.0-0.50); EOS % 2.7 % (0.0-3.0); LYMPH # 1.9 10^3/uL (1.5-4.5); LYMPH % 16.3 % (24.0-44.0); MEAN CORPUSCULAR HEMOGLOBIN 30.8 pg (27.0-33.0); MEAN CORPUSCULAR HGB CONC 32.4 g/dl (32.0-36.5); MEAN CORPUSCULAR VOLUME 95.2 fl (80.0-96.0); MONO # 0.9 10^3/uL (0.0-0.8); MONO % 7.9 % (0.0-5.0); NEUTROPHILS % 68.2 % (36.0-66.0); PLATELET COUNT, AUTOMATED 435 10^3/uL (150-450); RED BLOOD COUNT 3.57 10^6/uL (4.30-6.10); WHITE BLOOD COUNT 11.7 10^3/uL (4.0-10.0)
[2018-12-16] MEDS ORDERED: COZA50TA PO (06:24)
[2018-12-16 06:39] LABS: BLOOD UREA NITROGEN 24 MG/DL (7-18); CALCIUM LEVEL 8.1 MG/DL (8.8-10.2); CARBON DIOXIDE LEVEL 25 MEQ/L (21-32); CHLORIDE LEVEL 106 MEQ/L (98-107); CPK CREATINE PHOSPHOKINASE 48 U/L (39-308); CREATININE FOR GFR 2.26 MG/DL (0.70-1.30); GLOMERULAR FILTRATION RATE 30.5 (>42); GLUCOSE, FASTING 111 MG/DL (70-100); POTASSIUM SERUM 4.4 MEQ/L (3.5-5.1); SODIUM LEVEL 137 MEQ/L (136-145); TROPONIN I < 0.02 NG/ML (< 0.10)
[2018-12-16] MEDS: HumaLOG INSULIN (NovoLOG) PER UNIT SC SCH (07:30)
[2018-12-16 08:00] VITALS: BP 138/64
[2018-12-16 08:22] VITALS: BP 138/64
[2018-12-16] MEDS: FERROUS SULFATE 325MG TAB PO SCH (08:22)
[2018-12-16] MEDS: PANTOPRAZOLE 40MG TAB (PROTONIX) PO SCH (08:22)
[2018-12-16] MEDS: DOXYCYCLINE HYCLATE 100 MG TAB PO SCH (08:22)
[2018-12-16] MEDS: EZETIMIBE 10 MG TAB (ZETIA) PO SCH (08:22)
[2018-12-16] MEDS: MULTIVITAMINS CHILDREN'S CHEWABLE TABLET PO SCH (08:22)
[2018-12-16] MEDS: LOSARTAN 50 MG TAB PO SCH (08:22)
[2018-12-16] MEDS: LEVEMIR (INSULIN DETEMIR) 1 UNITS/0.01ML SC SCH (08:23)
[2018-12-16] MEDS: PERCOCET 5MG/325MG TAB PO PRN (09:07)
--- NOTE | 2018-12-16 14:29 | IPNPDOC ---
Date Seen The patient was seen on 12/16/18. Progress Note SUBJECTIVE: OVERNIGHT, pt's blood pressure was controlled, and on coreg, no repeat nsvt on telemetry. pt denies any cp, sob, palpitations, and lightheadedness. pt was transferred to pcu due to htn urgency 12/15/18 [id number] given nitro patch, hydralazine and continued on coreg and losartan with improvement to 148 mmHg systolic today. no c/o h/a or changes in vision. c/o heart burn yesterday evaluated for chest pain with EKG and negative trop. 4 beats of NSVT vs SVT with aberrancy with known history of WPW. coreg initially held yesterday due to bradycardia, but resumed today due to improvement in HR and h/o WPW and risk of uncontrolled rate. Pt is anxious for discharge, but meds still being titrated for better control. OBJECTIVE PHYSICAL EXAMINATION: VITAL SIGNS: Please see below GENERAL APPEARANCE: Resting HEENT: Normocephalic, PERRLA, Mucous moist, CARDIOVASCULAR: S1,S2, pulse present, regularly, regular, LUNGS: Equal air entry b/l, no wheezes or crackle, intermittent dry cough ABDOMEN: Soft, BS present, no tenderness, no guarding GENITOURINARY: No Kohler EXTREMITIES: patient underwent left foot sx 12/08/18. SKIN: Warm, No fever NEUROLOGICAL: Cranial nerves grossly intact PSYCHIATRIC: Normal mood and affect for current situation LABORATORY DATA, IMAGING STUDIES, MICROBIOLOGY: Please see below. 73-year-old who was in a few past medical history of Loghu-Rruewwhvs-Mmnjy, coronary artery disease with 6 stent, cardiac and abdominal bypass, carotid stenosis, previous history of GI bleed who was sent by Dr. Polanco due to worsening of the left foot ulceration. Patient states that he had developed a lesion on his left foot couple of months ago which progressively worsened and followed up with Dr. Polanco as outpatient. Unfortunately for the past 2 days, he overworked his foot as he had chores in his yard. When he followed up with Dr. Polanco today patient's foot had drainage and lesion and wound looked worse therefore patient was sent to the hospital for further evaluation and treatment for cellulitis and to rule out osteo-myelitis. Patient states that the wound had purulent drainage in the office. Patient denied of any fever, diarrhea, or dysuria. He did have dry cough for 1 week duration. He mentioned that he is not a smoker but used to be a former smoker but does not utilize any inhalers or respiratory therapy. He developed some greenish phlegm and small amount mainly dry cough. Spoke to Dr. Polanco who will evaluate patient in the hospital and recommends MRI of the foot and antibiotic including vancomycin as he suspected Gram- positive organism. Assessment and plan: 73-year-old who was in a few past medical history of Wqmyn-Ddmnbyudt-Hpacr, coronary artery disease with 6 stent, cardiac and abdominal bypass, carotid stenosis, previous history of GI bleed who was sent by Dr. Polanco due to worsening of the left foot ulceration. Mri of foot showed osteomyelitis. CXR's showed no acute disease. Sx was delayed initially because pt was taking nitroglycerin for his esophageal spasm. Patient did not have chest pain at the time but troponin was drawn which show slight elevation. Enzyme trended down and cardiology was consult. Dr. García review Echo (per Dr. García: EF nml and no motion wall abnml) and repeat EKG(per dr. 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 Patient determined to have mod-high risk by cardiology but due to his osteomyel itis and bacteremia likely source from left foot, podiatry is on board and patient underwent left foot sx 12/08/18. Organism as mentioned below. Patient found to have bacteremia of Streptococcus group G but sensitive to vancomycin, Zosyn, and clindamycin. Patient was switched over to clindamycin. His biopsy cultures returned growing Streptococcus group G and staph aureus with culture sensitivity still pending at this time. Left foot osteomyelitis -MRI of the foot:Findings consistent with osteomyelitis involving the distal aspect of the first metatarsal and possibly the medial corner of the base of the proximal phalanx of the great toe. There is no overlying skin ulcer evident and there is adjacent edema and some fluid. -Consulted with Dr. Polanco (podiatry) s/p ray's amputation -Initial ESR 126, CRP 13.6 -left leg us :neg for dvt -Mod-high risk for sx per cardiology but patient with bacteremia likely source from left foot osteomyelitis. -Echo (per Dr. García: EF nml and no motion wall abnml) and repeat EKG(per dr. 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 -po doxy as outpt at hospital discharge. stsill on iv vanco s/p vanco beads s/p debridement 12/12/18. anemia -due to chronic renal failure, chronic kidney disease, blood loss -hgb7.3, 2units rbc transfusion recheckedh&H which increased to 10mg/dL Lactic acidosis, leukocytosis -s/p IV fluid --Empiric antibiotic of Zosyn and vancomycin -Blood culture 2: STREPTOCOCCUS GROUP G sensitive to clindamycin, switch abx to clindamycin -Surgical biopsy: STREPTOCOCCUS GROUP G -Surgical culture: Streptococcus group G, Staphylococcus aureusawait sensitivity -Consult with ID Bacteremia -abx as above -repeat blood cx no growth to date Positive troponin -hx of A/CKD, bactermia, cardiac hx -ischemic demand -defer management to cardiology:hx GI bleed thus refused anticoagulant. Rec another statin in pravastatin, or Livalo might be a good choice for him. Continue B+hammad and long acting nitrates Acute on chronic kidney disease stage III -IV fluid -Hold renal toxic medication -Monitor -F/u with Dr. Baugh as outpatient Diabetes -finger sick monitoring and coverage -Hemoglobin A1c 8.1 -Patient takes sliding scale of long-acting insulin today he took 60 units due to sugar being in the 200s but just a did not take any. Verify home insulin dosing and resumespoke to pharmacy could not come to a conclusion as to how much patient normally takes of his long-acting insulin. We will start off with 10 units twice a day with parameters and escalate as needed. Cough -Checks x-ray: no acute disease -Respiratory therapy as needed History of Mehri-Mpzdbkhun-Fhstr, coronary artery disease with 6 stent -Resume carvedilol -Resume Nitrostat -Resume Ezetimibe -Patient currently not on aspirin most likely secondary due to history of GI bleed, please follow with the PCP and primary cardiology as outpatient -Telemetry monitoring post surgery for arrhythmias. -EKG prior to sx: Heart rate of 85, sinus with occasional SVC, and as per cardiology no delta wave noted on the EKG. -Cardiology also mentioned that with WPW pt simple rate controlling beta hammad can help assess if tachycardia develops. In rare cases of arrhythmia amiodarone and cardioversion as needed. -Mod-high risk for sx per cardiology but patient with bacteremia likely source from left foot osteomyelitis. -Echo (per Dr. García: EF nml and no motion wall abnml) and repeat EKG(per dr. 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 -outpatient statin, f/u with cardiology as outpatient Hypertensive URgency -Carvedilol 25 bid -Losartan 50 mg daily -isosorbide, minoxidil, s/p hydralazine. -pt was transferred to pcu due to htn urgency 12/15/18 [id number] given nitro patch, hydralazine and continued on coreg and losartan with improvement to 148 mmHg s ystolic today. no c/o h/a or changes in vision. c/o heart burn yesterday evaluated for chest pain with EKG and negative trop. 4 beats of NSVT vs SVT with aberrancy with known history of WPW. coreg initially held yesterday due to bradycardia, but resumed today due to improvement in HR and h/o WPW and risk of uncontrolled rate. Pt is anxious for discharge, but meds still being titrated for better control. Acute Hypertensive Encephalopathy with slurred speech CT head negative s/p minoxidil, clonidine, hydralazine on coreg, losartan History of GI bleed -resume iron supplement, pantoprazole Cardiac abdominal bypass history History of cardiac stenosis DVT prophylaxis with TIMOTHY and SCD once left LE neg for DVT disposition: dc home w home health A-FIB/CHADSVASC A-FIB History Current/History of A-Fib/PAF?: No Current Oral Anticoagulant The: No VS, I&O, 24H, Fishbone Vital Signs/I&O Vital Signs Date Time Temp Pulse Resp B/P (MAP) Pulse Ox O2 Delivery O2 Flow Rate FiO2 12/16/18 04:00 97.8 64 18 150/55 (86) 96 12/15/18 06:15 1.0 I&O- Last 24 Hours up to 6 AM 12/16/18 06:00 Intake Total 840 ml Output Total 500 ml Balance 340 ml Laboratory Data 24H LABS Laboratory Tests 2 12/15/18 11:23: Bedside Glucose (Misc Panel) 147H 12/15/18 13:50: Total Creatine Kinase 62, Creatine Kinase MB 1.0, Creatine Kinase MB Relative Index 2.10, Troponin I < 0.02 12/15/18 17:00: Bedside Glucose (Misc Panel) 135H 12/15/18 19:37: Bedside Glucose (Misc Panel) 163H 12/15/18 20:51: Total Creatine Kinase 47, Creatine Kinase MB < 1.0, Creatine Kinase MB Relative Index 2.13, Troponin I < 0.02 12/16/18 05:41: Total Creatine Kinase 48, Creatine Kinase MB 1.0, Creatine Kinase MB Relative Index 2.50, Troponin I < 0.02, Immature Granulocyte % (Auto) 3.8H, White Blood Count 11.7H, Red Blood Count 3.57L, Hemoglobin 11.0L, Hematocrit 34.0L, Mean Corpuscular Volume 95.2, Mean Corpuscular Hemoglobin 30.8, Mean Corpuscular Hemoglobin Concent 32.4, Red Cell Distribution Width 16.3H, Platelet Count 435, Neutrophils (%) (Auto) 68.2H, Lymphocytes (%) (Auto) 16.3L, Monocytes (%) (Auto) 7.9H, Eosinophils (%) (Auto) 2.7, Basophils (%) (Auto) 1.1H, Neutrophils # (Auto) 8.0H, Lymphocytes # (Auto) 1.9, Monocytes # (Auto) 0.9H, Eosinophils # (Auto) 0.3, Basophils # (Auto) 0.1, Nucleated Red Blood Cells % (auto) 0.0, Anion Gap 6L, Glomerular Filtration Rate 30.5L, Blood Urea Nitrogen 24H, Creatinine 2.26H, Sodium Level 137, Potassium Level 4.4, Chloride Level 106, Carbon Dioxide Level 25, Calcium Level 8.1L CBC/BMP Laboratory Tests 12/16/18 05:41 Red Blood Count 3.57 L, Mean Corpuscular Volume 95.2, Mean Corpuscular Hemoglobin 30.8, Mean Corpuscular Hemoglobin Concent 32.4, Red Cell Distribution Width 16.3 H, Neutrophils (%) (Auto) 68.2 H, Lymphocytes (%) (Auto) 16.3 L, Monocytes (%) (Auto) 7.9 H, Eosinophils (%) (Auto) 2.7, Basophils (%) (Auto) 1.1 H, Neutrophils # (Auto) 8.0 H, Lymphocytes # (Auto) 1.9, Monocytes # (Auto) 0.9 H, Eosinophils # (Auto) 0.3, Basophils # (Auto) 0.1, Calcium Level 8.1 L, Total Creatine Kinase 48 Microbiology Microbiology 12/08/18 Blood Culture - Final, Complete NO GROWTH AFTER 5 DAYS 12/06/18 Blood Culture - Final, Complete Streptococcus Group G 12/06/18 Blood Culture - Final, Complete Streptococcus Group G 12/11/18 Gram Stain - Final, Complete 12/11/18 Wound Culture - Final, Complete 12/11/18 Anaerobic Culture - Final, Complete 12/08/18 Surgical Biopsy Culture - Final, Complete Streptococcus Group G 12/08/18 Anaerobic Culture - Final, Complete 12/08/18 Surgical Biopsy Culture - Final, Complete Streptococcus Group G Staph.aureus Methicillin Resis 12/08/18 Anaerobic Culture - Final, Complete FRANCOIS BELL MD December 16, 2018 07:10
--- NOTE | 2018-12-16 14:34 | DS.PDOC ---
Discharge Summary General Date of Admission Dec 06, 2018 at 14:52 Date of Discharge December 16, 2018 Discharge Summary CONSULTANTS: ID DR BRANTLEY DIVISION OPERATIONS SPECIALIST DR WRIGHT SLITTER AND REWINDER MACHINE OPERATOR DR CULLEN MEREDITH RAY'S AMPUTATION OF THE LEFT FOOT DISCHARGE DIAGNOSES Left foot osteomyelitis s/p ray's amputation anemia of chronic disease, s/p 2units rbc transfusion Lactic acidosis, leukocytosis Bacteremia Positive troponin-hx of A/CKD, bactermia, cardiac hx Acute on chronic kidney disease stage III Diabetes History of Wkemx-Pezzgrvym-Cfhyy, coronary artery disease with 6 stent Hypertensive URgency Acute Hypertensive Encephalopathy with slurred speech History of GI bleed NSVT Cardiac abdominal bypass history History of cardiac stenosis A-FIB/CHADSVASC SCREEN A-FIB/CHADSVASC A-FIB History Current/History of A-Fib/PAF?: No Current Oral Anticoagulant The: No DISCHARGE MEDS PLS SEE BELOW HISTORY OF PRESENTING ILLNESS: 73-year-old who was in a few past medical history of Voane-Lczjofdfc-Zmikn, coronary artery disease with 6 stent, cardiac and abdominal bypass, carotid stenosis, previous history of GI bleed who was sent by Dr. Wright due to worsening of the left foot ulceration. Patient states that he had developed a lesion on his left foot couple of months ago which progressively worsened and followed up with Dr. Wright as outpatient. Unfortunately for the past 2 days, he overworked his foot as he had chores in his yard. When he followed up with Dr. Wright today patient's foot had drainage and lesion and wound looked worse therefore patient was sent to the hospital for further evaluation and treatment for cellulitis and to rule out osteo-myelitis. Patient states that the wound had purulent drainage in the office. Patient denied of any fever, diarrhea, or dysuria. He did have dry cough for 1 week duration. He mentioned that he is not a smoker but used to be a former smoker but does not utilize any inhalers or respiratory therapy. He developed some greenish phlegm and small amount mainly dry cough. Spoke to Dr. Wright who will evaluate patient in the hospital and recommends MRI of the foot and antibiotic including vancomycin as he suspected Gram-positive organism. HOSPITAL COURSE Left foot osteomyelitis -MRI of the foot:Findings consistent with osteomyelitis involving the distal as pect of the first metatarsal and possibly the medial corner of the base of the proximal phalanx of the great toe. There is no overlying skin ulcer evident and there is adjacent edema and some fluid. -Consulted with Dr. Wright (podiatry) s/p ray's amputation -Initial ESR 126, CRP 13.6 -left leg us :neg for dvt -Mod-high risk for sx per cardiology but patient with bacteremia likely source from left foot osteomyelitis. -Echo (per Dr. García: EF nml and no motion wall abnml) and repeat EKG(per dr. 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 -po doxy as outpt at hospital discharge. stsill on iv vanco s/p vanco beads s/p debridement 12/12/18. anemia -due to chronic renal failure, chronic kidney disease, blood loss -hgb7.3, 2units rbc transfusion recheckedh&H which increased to 10mg/dL Lactic acidosis, leukocytosis -s/p IV fluid --Empiric antibiotic of Zosyn and vancomycin -Blood culture 2: STREPTOCOCCUS GROUP G sensitive to clindamycin, switch abx to clindamycin -Surgical biopsy: STREPTOCOCCUS GROUP G -Surgical culture: Streptococcus group G, Staphylococcus aureusawait sensitivity -Consult with ID Bacteremia -abx as above -repeat blood cx no growth to date Positive troponin -hx of A/CKD, bactermia, cardiac hx -ischemic demand -defer management to cardiology:hx GI bleed thus refused anticoagulant. Rec another statin in pravastatin, or Livalo might be a good choice for him. Con tinue B+hammad and long acting nitrates Acute on chronic kidney disease stage III -IV fluid -Hold renal toxic medication -Monitor -F/u with Dr. Baugh as outpatient Diabetes -finger sick monitoring and coverage -Hemoglobin A1c 8.1 -Patient takes sliding scale of long-acting insulin today he took 60 units due to sugar being in the 200s but just a did not take any. Verify home insulin dosing and resumespoke to pharmacy could not come to a conclusion as to how much patient normally takes of his long-acting insulin. We will start off with 10 units twice a day with parameters and escalate as needed. Cough -Checks x-ray: no acute disease -Respiratory therapy as needed History of Tasjy-Rbugatpms-Ridws, coronary artery disease with 6 stent -Resume carvedilol -Resume Nitrostat -Resume Ezetimibe -Patient currently not on aspirin most likely secondary due to history of GI bleed, please follow with the PCP and primary cardiology as outpatient -Telemetry monitoring post surgery for arrhythmias. -EKG prior to sx: Heart rate of 85, sinus with occasional SVC, and as per cardiology no delta wave noted on the EKG. -Cardiology also mentioned that with WPW pt simple rate controlling be ta hammad can help assess if tachycardia develops. In rare cases of arrhythmia amiodarone and cardioversion as needed. -Mod-high risk for sx per cardiology but patient with bacteremia likely source from left foot osteomyelitis. -Echo (per Dr. aGrcía: EF nml and no motion wall abnml) and repeat EKG(per dr. 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 -outpatient statin, f/u with cardiology as outpatient Hypertensive URgency -Carvedilol 25 bid -Losartan 50 mg daily -isosorbide, minoxidil, s/p hydralazine. -pt was transferred to pcu due to htn urgency 12/15/18 [id number] given nitro patch, hydralazine and continued on coreg and losartan with improvement to 148 mmHg systolic today. no c/o h/a or changes in vision. c/o heart burn yesterday evaluated for chest pain with EKG and negative trop. 4 beats of NSVT vs SVT with aberrancy with known history of WPW. coreg initially held yesterday due to anne cardia, but resumed today due to improvement in HR and h/o WPW and risk of uncontrolled rate. Pt is anxious for discharge, but meds still being titrated for better control. Acute Hypertensive Encephalopathy with slurred speech CT head negative s/p minoxidil, clonidine, hydralazine on coreg, losartan History of GI bleed -resume iron supplement, pantoprazole Cardiac abdominal bypass history History of cardiac stenosis DVT prophylaxis with TIMOTHY and SCD once left LE neg for DVT disposition: dc home w home health A-FIB/CHADSVASC SCREEN A-FIB/CHADSVASC A-FIB History Current/History of A-Fib/PAF?: No Current Oral Anticoagulant The: No PHYSICAL EXAMINATION: VITAL SIGNS: Please see below GENERAL APPEARANCE: Resting HEENT: Normocephalic, PERRLA, Mucous moist, CARDIOVASCULAR: S1,S2, pulse present, regularly, regular, LUNGS: Equal air entry b/l, no wheezes or crackle, intermittent dry cough ABDOMEN: Soft, BS present, no tenderness, no guarding GENITOURINARY: No Kohler EXTREMITIES: patient underwent left foot sx 12/08/18. SKIN: Warm, No fever NEUROLOGICAL: Cranial nerves grossly intact PSYCHIATRIC: Normal mood and affect for current situation LABORATORY DATA, IMAGING STUDIES, MICROBIOLOGY: Please see below. TIME SPENT ON DISCHARGE: 30 MIN Vital Signs/I&Os Vital Signs Date Time Temp Pulse Resp B/P (MAP) Pulse Ox O2 Delivery O2 Flow Rate FiO2 12/16/18 09:07 20 12/16/18 08:22 138/64 12/16/18 08:00 98.5 62 92 12/15/18 06:15 1.0 I&O- Last 24 Hours up to 6 AM 12/16/18 06:00 Intake Total 840 ml Output Total 500 ml Balance 340 ml Laboratory Data Labs 24H Laboratory Tests 2 12/15/18 17:00: Bedside Glucose (Misc Panel) 135H 12/15/18 19:37: Bedside Glucose (Misc Panel) 163H 12/15/18 20:51: Total Creatine Kinase 47, Creatine Kinase MB < 1.0, Creatine Kinase MB Relative Index 2.13, Troponin I < 0.02 12/16/18 05:41: Total Creatine Kinase 48, Creatine Kinase MB 1.0, Creatine Kinase MB Relative Index 2.50, Troponin I < 0.02, Immature Granulocyte % (Auto) 3.8H, White Blood Count 11.7H, Red Blood Count 3.57L, Hemoglobin 11.0L, Hematocrit 34.0L, Mean Corpuscular Volume 95.2, Mean Corpuscular Hemoglobin 30.8, Mean Corpuscular Hemoglobin Concent 32.4, Red Cell Distribution Width 16.3H, Platelet Count 435, Neutrophils (%) (Auto) 68.2H, Lymphocytes (%) (Auto) 16.3L, Monocytes (%) (Auto) 7.9H, Eosinophils (%) (Auto) 2.7, Basophils (%) (Auto) 1.1H, Neutrophils # (Auto ) 8.0H, Lymphocytes # (Auto) 1.9, Monocytes # (Auto) 0.9H, Eosinophils # (Auto) 0.3, Basophils # (Auto) 0.1, Nucleated Red Blood Cells % (auto) 0.0, Anion Gap 6L, Glomerular Filtration Rate 30.5L, Blood Urea Nitrogen 24H, Creatinine 2.26H, Sodium Level 137, Potassium Level 4.4, Chloride Level 106, Carbon Dioxide Level 25, Calcium Level 8.1L CBC/BMP Laboratory Tests 12/16/18 05:41 Red Blood Count 3.57 L, Mean Corpuscular Volume 95.2, Mean Corpuscular Hemoglobin 30.8, Mean Corpuscular Hemoglobin Concent 32.4, Red Cell Distribution Width 16.3 H, Neutrophils (%) (Auto) 68.2 H, Lymphocytes (%) (Auto) 16.3 L, Monocytes (%) (Auto) 7.9 H, Eosinophils (%) (Auto) 2.7, Basophils (%) (Auto) 1.1 H, Neutrophils # (Auto) 8.0 H, Lymphocytes # (Auto) 1.9, Monocytes # (Auto) 0.9 H, Eosinophils # (Auto) 0.3, Basophils # (Auto) 0.1, Calcium Level 8.1 L, Total Creatine Kinase 48 FSBS Laboratory Tests Test 12/15/18 17:00 12/15/18 19:37 Range/Units Bedside Glucose (Misc Panel) 135 163 83-110 MG/DL Microbiology Microbiology 12/08/18 Blood Culture - Final, Complete NO GROWTH AFTER 5 DAYS 12/06/18 Blood Culture - Final, Complete Streptococcus Group G 12/06/18 Blood Culture - Final, Complete Streptococcus Group G 12/11/18 Gram Stain - Final, Complete 12/11/18 Wound Culture - Final, Complete 12/11/18 Anaerobic Culture - Final, Complete 12/08/18 Surgical Biopsy Culture - Final, Complete Streptococcus Group G 12/08/18 Anaerobic Culture - Final, Complete 12/08/18 Surgical Biopsy Culture - Final, Complete Streptococcus Group G Staph.aureus Methicillin Resis 12/08/18 Anaerobic Culture - Final, Complete Discharge Medications Scheduled Calcium Carbonate/Vitamin D3 (Caltrate 600 + D Soft Chew Tab) 1 Chw Chw, 1 CHW PO BID, (Reported) Carvedilol (Carvedilol) 25 Mg Tab, 25 MG PO BID hold for hr<60 or sbp<120 Cholecalciferol (Vitamin D3) (Vitamin D3) 5,000 Unit Cap, 10,000 UNIT PO QHS, (Reported) Cyanocobalamin (Vitamin B-12) (Vitamin B-12) 500 Mcg Tab, 500 MCG PO DAILY, (Reported) Doxycycline Monohydrate (Doxycycline) 100 Mg Capsule, 100 MG PO BID Ezetimibe (Ezetimibe) 10 Mg Tablet, 10 MG PO DAILY, (Reported) Ferrous Sulfate (Ferrous Sulfate) 325 Mg Tab, 325 MG PO BID, (Reported) Insulin Glargine,Hum.rec.anlog (Basaglar Kwikpen U-100) 100 Unit/Ml Inj, 1 DOSE SC DAILY, (Reported) TAKES DOSE OFF OF BLOOD SUGAR Losartan Potassium (Cozaar) 50 Mg Tablet, 50 MG PO BID Multivitamins (Child Chew Vitamin) 1 Tab Chew, 2 TAB PO DAILY, (Reported) Pantoprazole Sodium (Pantoprazole Sodium) 40 Mg Tab, 40 MG PO DAILY, (Reported) Scheduled PRN Nitroglycerin (Nitrostat) 0.4 Mg Subl, 0.4 MG SL NITRO PRN for CHEST PAIN, (Reported) Oxycodone/Acetaminophen (Oxycodone-Acetaminophen 5-325) 1 Each Tablet, 1 TAB PO Q6HP PRN for MILD/MODERATE PAIN (PS 1-7) Allergies Coded Allergies: nicotine (Verified Allergy, Intermediate, hives, 12/06/18) atorvastatin (Verified Adverse Reaction, Intermediate, myalgia, 12/06/18) clopidogrel (Verified Adverse Reaction, Intermediate, rectal bleeding, 12/06/18) pioglitazone (Verified Adverse Reaction, Intermediate, myalgia, 12/06/18) rosuvastatin (Verified Adverse Reaction, Intermediate, leg cramps, 11/13 12/30) lactose (Verified Adverse Reaction, Mild, diarrhea, 12/06/18) heparin (Verified Adverse Reaction, Unknown, rectal bleeding, 12/06/18) FRANCOIS BELL MD December 16, 2018 14:34
== END 2018-12-16 09:12 | disposition home health service (06) | DRG 617 ==
LOC: M ED 12:16 → EEVIPCON 14:52 → M ED INP 14:52 → M MSPAV 17:03 → M PCU 12-14 18:23
PROVIDERS: ADMIT Internal Medicine; ATTEND General Practice
PROC: 0Y6Q0Z0 Detachment at Left 1st Toe, Complete, Open Approach (ICD-10-PCS; principal; 2018-12-08 11:00)
PROC: 0SBL0ZZ Excision of Left Tarsometatarsal Joint, Open Approach (ICD-10-PCS; 2018-12-11)
PROC: 30233N1 Transfusion of Nonautologous Red Blood Cells into Peripheral Vein, Percutaneous Approach (ICD-10-PCS; 2018-12-13)
DX: E11.621 Type 2 diabetes mellitus with foot ulcer (principal); M86.172 Other acute osteomyelitis, left ankle and foot; E87.2 Acidosis; R78.81 Bacteremia; L03.116 Cellulitis of left lower limb; N17.9 Acute kidney failure, unspecified; I67.4 Hypertensive encephalopathy; I16.0 Hypertensive urgency; D72.829 Elevated white blood cell count, unspecified; I25.10 Atherosclerotic heart disease of native coronary artery without angina pectoris; Z95.2 Presence of prosthetic heart valve; I45.6 Pre-excitation syndrome; Z87.891 Personal history of nicotine dependence; D63.1 Anemia in chronic kidney disease; N18.3 Chronic kidney disease, stage 3 (moderate); Z79.899 Other long term (current) drug therapy; Z79.4 Long term (current) use of insulin; Z88.8 Allergy status to other drugs, medicaments and biological substances; E73.9 Lactose intolerance, unspecified; Z98.84 Bariatric surgery status; E78.5 Hyperlipidemia, unspecified; D50.0 Iron deficiency anemia secondary to blood loss (chronic); B95.5 Unspecified streptococcus as the cause of diseases classified elsewhere; B95.62 Methicillin resistant Staphylococcus aureus infection as the cause of diseases classified elsewhere

== ENCOUNTER → 2019-02-04 | Outpatient (REF) | payer MEDICARE ==
[~2019-02-04] MED LIST changes: +COZA50TA PO; +DOXY-350 PO; +EZET10TA21 PO; +HYDR-3910 PO; +HYZA50TA2 PO; +INSUDET SC; +ISOS120T7 PO; +ISOS30TA4 PO; +ISOS40TASA PO; +LOSA100T8; +LOSA50TA5 PO; +PERCOCET PO; +SANT250O8 TOP
[2019-02-04 14:08] LABS: PERCENT SATURATION 62.5 % (19.7-50.0)
== END ==
LOC: M LAB REF 12:50
PROVIDERS: ATTEND Internal Medicine Nephrology
DX: D50.9 Iron deficiency anemia, unspecified (principal)

== ENCOUNTER → 2019-05-13 | Outpatient (REF) | payer MEDICARE ==
[~2019-05-13] MED LIST changes: +CYAN500T9 PO; -VITA-193 PO; +VITA500079 PO
[2019-05-13 18:30] LABS: TOTAL PROTEIN,RANDOM URINE 61.5 MG/DL (0.0-12.0); URINE TOTAL PROTEIN 61.5 MG/DL (0-12)
[2019-05-16 12:48] LABS: UPEP INTERPRETATION NO M-SPIKE NOTED; URINE VOLUME RANDOM ML
== END ==
LOC: M LAB REF 16:40
PROVIDERS: ATTEND Internal Medicine Nephrology
DX: R80.9 Proteinuria, unspecified (principal)

== ENCOUNTER → 2019-11-28 | Outpatient (CLI) | payer MEDICARE ==
[~2019-11-28] MED LIST changes: +LASI20TA3 PO; +MINO2.5T PO
--- NOTE | 2019-11-28 19:40 | REP ---
HISTORY: Trauma. COMPARISON: None. The accompanying view frontal view of the chest has been compared to the latest prior frontal view of 12/08/2018. The frontal view of the chest is unchanged from the prior exam showing no acute disease. There has been previous median sternotomy. The heart is not enlarged. There is no pneumothorax. Multiple views of the right ribs show the bones to be demineralized. There is no evidence of an acute fracture. Chronic changes are seen involving the imaged portion of the spine. IMPRESSION: No acute disease. Electronically Signed by Nicho Campbell DO 11/28/2019 07:57 P
== END ==
LOC: M WUC 18:44
PROVIDERS: ATTEND Physician Assistant
DX: S20.211A Contusion of right front wall of thorax, initial encounter (principal); X58.XXXA Exposure to other specified factors, initial encounter; Y92.89 Other specified places as the place of occurrence of the external cause

== ENCOUNTER → 2020-02-20 | Outpatient (REF) | payer MEDICARE ==
[~2020-02-20] MED LIST changes: +CYAN500T10 PO; -CYAN500T9 PO; +PANT40TA29; +PANT40TA29 PO; -PANT40TA3; -PANT40TA3 PO
[2020-02-20 16:50] LABS: HEMOGLOBIN A1c 8.1 %
== END ==
LOC: M LAB REF 11:39
PROVIDERS: ATTEND Family Medicine
DX: Z53.9 Procedure and treatment not carried out, unspecified reason (principal); E11.65 Type 2 diabetes mellitus with hyperglycemia

== ENCOUNTER 2020-10-11 11:34 | Emergency (ER) | payer MEDICARE ==
[~2020-10-11] VITALS: Ht 175.3 cm; Wt 90.9 kg
[~2020-10-11 11:34] MED LIST changes: +ASPI-569 PO; -ASPI81TAEC PO; -CYAN500T10 PO; +ISOS1TAB35 PO; -ISOS30TA4 PO; +VITA500T37 PO
[2020-10-11] MEDS ORDERED: PROC20004 SC (11:45)
[2020-10-11] MEDS ORDERED: NS 1,000 ML IV SCH (11:57)
[2020-10-11] MEDS ORDERED: ONDANSETRON 4MG/2ML VIAL IV ONE (12:00)
[2020-10-11] MEDS: MORPHINE 4 MG/ML 1ML VIAL/SYRINGE (J2270) IV PRN ×2 (12:26→13:54)
[2020-10-11 12:34] LABS: BASO % 0.2 % (0.0-1.0); HEMATOCRIT 33.5 % (42.0-52.0); HEMOGLOBIN 10.9 g/dl (13.5-17.5); LYMPH # 0.6 10^3/uL (1.5-5.0); LYMPH % 3.8 % (24.0-44.0); MEAN CORPUSCULAR HGB CONC 32.5 g/dl (32.0-36.5); MEAN CORPUSCULAR VOLUME 101.5 fl (80.0-96.0); MONO # 0.7 10^3/uL (0.0-0.8); MONO % 4.3 % (2.0-8.0); NEUTROPHILS # 14.2 10^3/uL (1.5-8.5); NEUTROPHILS % 91.2 % (36.0-66.0); PLATELET COUNT, AUTOMATED 228 10^3/uL (150-450); WHITE BLOOD COUNT 15.6 10^3/uL (4.0-10.0)
[2020-10-11 13:00] LABS: ALBUMIN 3.7 GM/DL (3.2-5.2); ALT/SGPT 508 U/L (12-78); BILIRUBIN,DIRECT 2.8 MG/DL (0.0-0.2); BILIRUBIN,TOTAL 3.3 MG/DL (0.2-1.0); CK-MB VALUE MASS 2.3 NG/ML (<3.6); CPK CREATINE PHOSPHOKINASE 140 U/L (39-308); LIPASE 103 U/L (73-393); MB/CK RELATIVE INDEX 1.64 (< OR =4); TOTAL PROTEIN 6.8 GM/DL (6.4-8.2); TROPONIN I < 0.02 NG/ML (< 0.10)
--- NOTE | 2020-10-11 13:10 | REP ---
INDICATION: abd pain COMPARISON: None. TECHNIQUE: CT Scan of the abdomen and pelvis was performed without intravenous contrast. Sagittal and coronal reconstruction images performed. FINDINGS: Lung bases: Unremarkable. Liver: Grossly unremarkable. Gallbladder: The gallbladder is moderately distended, with no gross wall thickening or adjacent edema. There are dependent densities in the gallbladder lumen likely representing sludge or stones.. Spleen: Grossly unremarkable.. Adrenals: Normal. Pancreas: Grossly unremarkable.. Kidneys: No hydronephrosis or nephrolithiasis. Ureters demonstrate no dilatation or calculus. Extensive bilateral vascular calcifications in the renal kayode. Small and large bowel: There is sigmoid diverticulosis without acute diverticulitis. There has been prior gastric surgery. Free fluid: None. Abdominal aorta: No aneurysm. Moderate atherosclerotic calcifications. Adenopathy: None. Appendix: Not inflamed. Osseous structures: There are degenerative changes of the spine without compression deformity.. Pelvis: No mass. No bladder calculus seen. The prostate is enlarged. IMPRESSION: Gallbladder moderately distended, containing sludge or stones in the dependent portion. No gross wall thickening or pericholecystic edema. No free fluid. No renal or ureteral calculus. No hydroureteronephrosis. Sigmoid diverticulosis without acute diverticulitis. Enlarged prostate. <Electronically signed by Danie Meyers > 10/11/20 [id number]
[2020-10-11] MEDS ORDERED: PIPERACILLIN/TAZOBACTAM SOD 3.375 GM in D5W MINI-BAG PLUS 50 ML IV ONE (13:15)
[2020-10-11] MEDS ORDERED: LOSA100T8 PO (13:57)
[2020-10-11] MEDS ORDERED: NATU1TAB5 PO (13:57)
[2020-10-11] MEDS ORDERED: MULT-40 PO (13:57)
--- NOTE | 2020-10-11 14:40 | REP ---
INDICATION: brian/?cbd dilated. COMPARISON: CT 10/11/2020. TECHNIQUE: Real-time sonographic evaluation of right upper quadrant performed. FINDINGS: Gallbladder is moderately distended containing stones and sludge. Gallbladder wall measures 4 mm. This is upper limits of normal. There is a tiny amount of pericholecystic fluid.. There is no intrahepatic or extrahepatic biliary dilatation, common bile duct measures 6 mm in maximum diameter. The liver demonstrates homogeneous echotexture with no gross mass. Pancreas is not seen due to overlying bowel gas. The right kidney demonstrates no hydronephrosis, with a normal size of 11.3 cm in length. Subcentimeter cyst in the right kidney measures 6 mm. IMPRESSION: Moderate distention of the gallbladder containing stones and sludge. Gallbladder wall 4 mm is upper limits of normal. Tiny amount of pericholecystic fluid. No biliary dilatation. Common bile duct 6 mm. <Electronically signed by Danie Meyers > 10/11/20 [id number]
[2020-10-11] MEDS ORDERED: MORPHINE 4 MG/ML 1ML VIAL/SYRINGE (J2270) IV PRN (14:45)
[2020-10-11 14:51] LABS: RSV AMPLIFICATION NEGATIVE (NEGATIVE)
[2020-10-11 15:53] VITALS: BP 187/87
--- NOTE | 2020-10-11 20:21 | ECGEPIP ---
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
== END 2020-10-11 15:59 | disposition short-term general hospital (02) ==
LOC: M ED 11:34
DX: K81.0 Acute cholecystitis (principal); I45.10 Unspecified right bundle-branch block; I50.9 Heart failure, unspecified; I25.10 Atherosclerotic heart disease of native coronary artery without angina pectoris; I10 Essential (primary) hypertension; E78.5 Hyperlipidemia, unspecified; N18.9 Chronic kidney disease, unspecified; D46.9 Myelodysplastic syndrome, unspecified; D63.8 Anemia in other chronic diseases classified elsewhere; E73.9 Lactose intolerance, unspecified; N40.0 Benign prostatic hyperplasia without lower urinary tract symptoms; K57.30 Diverticulosis of large intestine without perforation or abscess without bleeding; Z95.5 Presence of coronary angioplasty implant and graft; Z87.19 Personal history of other diseases of the digestive system; Z87.891 Personal history of nicotine dependence; Z79.4 Long term (current) use of insulin; Z79.899 Other long term (current) drug therapy; Z88.8 Allergy status to other drugs, medicaments and biological substances; Z91.89 Other specified personal risk factors, not elsewhere classified
CPT/HCPCS: 74176; 76705; 80047; 80076; 82550; 82553; 83690; 84484; 85025; 86850; 86900; 86901; 87631; 93005; 93041; 96365; 96375; 96376; 99285; J2270; J2405; J2543

== ENCOUNTER → 2020-10-23 | Outpatient (CLI) | payer MEDICARE ==
[~2020-10-23] MED LIST changes: +LOSA100T8 PO; +MULT-40 PO; +NATU1TAB5 PO; +PROC20004 SC
[2020-10-23 14:45] LABS: BASO # 0.1 10^3/uL (0.0-0.2); BASO % 0.8 % (0.0-1.0); EOS # 0.3 10^3/uL (0.0-0.5); EOS % 2.5 % (0.0-3.0); HEMATOCRIT 29.6 % (42.0-52.0); HEMOGLOBIN 9.3 g/dl (13.5-17.5); LYMPH # 2.2 10^3/uL (1.5-5.0); LYMPH % 16.1 % (24.0-44.0); MEAN CORPUSCULAR HEMOGLOBIN 33.3 pg (27.0-33.0); MEAN CORPUSCULAR HGB CONC 31.4 g/dl (32.0-36.5); MEAN CORPUSCULAR VOLUME 106.1 fl (80.0-96.0); MONO # 1.1 10^3/uL (0.0-0.8); MONO % 8.3 % (2.0-8.0); NEUTROPHILS # 9.7 10^3/uL (1.5-8.5); NEUTROPHILS % 70.4 % (36.0-66.0); PLATELET COUNT, AUTOMATED 405 10^3/uL (150-450); RED BLOOD COUNT 2.79 10^6/uL (4.30-6.10); WHITE BLOOD COUNT 13.7 10^3/uL (4.0-10.0)
[2020-10-23 14:59] LABS: ALBUMIN 3.4 GM/DL (3.2-5.2); BILIRUBIN,TOTAL 0.5 MG/DL (0.2-1.0); CALCIUM LEVEL 8.9 MG/DL (8.8-10.2); CREATININE FOR GFR 3.35 MG/DL (0.70-1.30); GLOMERULAR FILTRATION RATE 19.3 (>42); POTASSIUM SERUM 4.9 MEQ/L (3.5-5.1); THYROID STIMULATING HORMONE 0.814 uIU/ML (0.358-3.740); TOTAL PROTEIN 6.6 GM/DL (6.4-8.2)
[2020-10-23 15:10] LABS: HEMOGLOBIN A1c 6.6 %
== END ==
LOC: M WUC 11:49
PROVIDERS: ATTEND Family Medicine
DX: I50.32 Chronic diastolic (congestive) heart failure (principal); N18.9 Chronic kidney disease, unspecified; E11.65 Type 2 diabetes mellitus with hyperglycemia; I11.0 Hypertensive heart disease with heart failure

== ENCOUNTER 2021-01-06 14:25 | Inpatient (IN) | payer MEDICARE ==
[~2021-01-06] VITALS: Ht 175.3 cm; Wt 81.8 kg
[~2021-01-06 14:25] MED LIST changes: +BACI1CAP4 PO; +CARV3.12; +IRBE300T7 PO
[2021-01-06] MEDS ORDERED: SODIUM BICARBONATE 150 MEQ in D5W 1,000 ML IV SCH (14:45)
[2021-01-06] MEDS ORDERED: SOD POLYSTYRENE SULFONATE SUSP 15 GM/60 ML UD PO ONE (14:45)
--- NOTE | 2021-01-06 15:14 | REP ---
INDICATION: CHEST PAIN. COMPARISON: Comparison chest x-ray November 28, 2019. TECHNIQUE: Portable upright AP chest radiograph. FINDINGS: Patient is status post prior median sternotomy. The lungs are well inflated and clear. Pleural angles are sharp. Heart is not enlarged. Pulmonary vasculature is not increased. No infiltrate is seen.. No significant bony abnormality. IMPRESSION: No active disease. <Electronically signed by Good Lima > 01/06/21 0210
[2021-01-06 15:20] LABS: BASO % 0.5 % (0.0-1.0); EOS # 0.4 10^3/uL (0.0-0.5); EOS % 4.5 % (0.0-3.0); HEMATOCRIT 34.6 % (42.0-52.0); HEMOGLOBIN 10.7 g/dl (13.5-17.5); LYMPH # 1.3 10^3/uL (1.5-5.0); LYMPH % 14.7 % (24.0-44.0); MEAN CORPUSCULAR HEMOGLOBIN 33.9 pg (27.0-33.0); MEAN CORPUSCULAR HGB CONC 30.9 g/dl (32.0-36.5); MEAN CORPUSCULAR VOLUME 109.5 fl (80.0-96.0); MONO # 0.8 10^3/uL (0.0-0.8); MONO % 9.7 % (2.0-8.0); NEUTROPHILS # 5.9 10^3/uL (1.5-8.5); NEUTROPHILS % 69.7 % (36.0-66.0); PLATELET COUNT, AUTOMATED 370 10^3/uL (150-450); RED BLOOD COUNT 3.16 10^6/uL (4.30-6.10); WHITE BLOOD COUNT 8.5 10^3/uL (4.0-10.0)
[2021-01-06 15:31] LABS: INR 1.12; PROTHROMBIN TIME 14.6 SECONDS (12.5-14.3)
[2021-01-06 15:50] LABS: RSV AMPLIFICATION NEGATIVE (NEGATIVE)
[2021-01-06 15:55] LABS: ALBUMIN 3.8 GM/DL (3.2-5.2); BILIRUBIN,DIRECT 0.1 MG/DL (0.0-0.2); BILIRUBIN,TOTAL 0.4 MG/DL (0.2-1.0); CALCIUM LEVEL 8.8 MG/DL (8.8-10.2); CK-MB VALUE MASS 2.3 NG/ML (<3.6); CREATININE FOR GFR 11.1 MG/DL (0.70-1.30); GLOMERULAR FILTRATION RATE 4.8 (>42); MB/CK RELATIVE INDEX 1.8 (< OR =4); POTASSIUM SERUM 7.8 MEQ/L (3.5-5.1); THYROID STIMULATING HORMONE 0.537 uIU/ML (0.358-3.740); TOTAL PROTEIN 6.9 GM/DL (6.4-8.2); TROPONIN I 0.05 NG/ML (< 0.10)
[2021-01-06] MEDS ORDERED: ACETAMINOPHEN TAB 650MG DOSE (2X325MG) PO PRN (17:00)
[2021-01-06] MEDS ORDERED: GLUCOSE 4GM CHEW TABLET PO PRN (17:05)
[2021-01-06] MEDS ORDERED: GLUCAGON INJ 1MG VIAL SC PRN (17:05)
[2021-01-06] MEDS ORDERED: DEXTROSE 50% 50 ML SYRINGE IV PRN (17:05)
[2021-01-06] MEDS ORDERED: amLODIPine 5 MG TAB PO SCH (17:40)
[2021-01-06] MEDS ORDERED: HYDR-3910 PO (17:57)
[2021-01-06] MEDS ORDERED: MINO2.5T PO (17:57)
[2021-01-06 18:10] VITALS: BP 206/83
[2021-01-06] MEDS: hydrALAZINE 20MG/ML 1ML VIAL (J0360 PER 20MG) IV PRN (18:32)
[2021-01-06] MEDS: HumaLOG INSULIN (NovoLOG) PER UNIT SC SCH ×2 (18:32→20:57)
[2021-01-06] MEDS: LACTOBACILLUS ACIDOPHILUS CAP (BACID) PO SCH (18:32)
--- NOTE | 2021-01-06 18:33 | HPEPDOC ---
General Date of Admission January 06, 2021 at 16:56 Date of Service: January 06, 2021 Chief Complaint The patient is a 75-year-old male admitted with a reason for visit of Acute Renal Failure, Hyperkalemia. History of Present Illness Mr. Vasquez is a 75 year old male with CKD stage 4 and CAD s/p CABG and stents who presents from nephrology's office for acute renal failure and hyperkalemia. Patient was at [facility] for cholecystitis in October, and he was discharge with levofloxacin. Otherwise, denies taking any NSAID or over the counter medication. Otherwise, his only other new medication was minoxidil. He was unsure when this medication was started. Otherwise, over the past month, he has been having increased weakness and a metallic taste in his mouth. He thought it may be due to his minoxidil. 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 Patient was then urgently taken to the ED. While in the ED, repeat potassium was 7.8, bicarb 13, and creatinine 11.1. Dr. Nellie Guevara spoke with ED provider and recommended giving Kayexalate and sodium bicarbonate. Patient will most likely need dialysis at some point during this hospitalization. When I saw the patient, he denied any fever, chest pain, dyspnea, abdominal pain, or dysuria. He does feel that his urine output is less, but he is still able to produce urine. I spoke with Dr. Alissa Guevara. Recommended continuing bicarb drip for a total of 3L (1L by ED and 2L by me) and use Kayexalate for hyperkalemia. Anticipate requesting IR to place [facility] tomorrow for dialysis. Patient will be admitted for acute renal failure and hyperkalemia. Home Medications Scheduled Bacillus Coagulans/Inulin (Probiotic Formula Capsule) 1 Each Capsule, 1 CAP PO DAILY, (Reported) Calcium Carbonate/Vitamin D3 (Caltrate 600 + D Soft Chew Tab) 1 Chw Chw, 1 CHW PO BID, (Reported) Carvedilol (Carvedilol) 25 Mg Tablet, 1 TAB PO BID, (Reported) Cholecalciferol (Vitamin D3) (Vitamin D3) 125 Mcg Tablet, 125 MCG PO DAILY, (Reported) Cyanocobalamin (Vitamin B-12) (Vitamin B-12) 500 Mcg Tab, 500 MCG PO QHS, (Reported) Epoetin Adarsh (Procrit) 20,000 Unit/1 Ml Vial, 1 VIAL SC 2XW, (Reported) GETS BLOOD DRAWN EVERY TWO WEEKS TO CHECK LEVELS. LAST BLOOD DRAW WAS 09/15 12/02 Ezetimibe (Ezetimibe) 10 Mg Tablet, 10 MG PO QHS, (Reported) Ferrous Sulfate (Ferrous Sulfate) 325 Mg Tab, 325 MG PO BID, (Reported) Furosemide (Lasix) 20 Mg Tablet, 20 MG PO DAILY, (Reported) Insulin Glargine,Hum.rec.anlog (Basaglar Kwikpen U-100) 100 Unit/Ml Inj, 20 UNITS SC DAILY, (Reported) IF BS >106 THEN INJECT 30 UNITS Irbesartan (Irbesartan) 300 Mg Tablet, 1 TAB PO DAILY, (Reported) Minoxidil (Minoxidil) 2.5 Mg Tablet, 2.5 MG PO BID, (Reported) Multivitamin (Multivitamins) 1 Each Tablet, 2 TAB PO DAILY, (Reported) Pantoprazole Sodium (Pantoprazole Sodium) 40 Mg Tab, 40 MG PO DAILY, (Reported) Scheduled PRN Nitroglycerin (Nitrostat) 0.4 Mg Subl, 0.4 MG SL NITRO PRN for CHEST PAIN, (Reported) Allergies Coded Allergies: nicotine (Verified Allergy, Intermediate, hives, 10/11/20) atorvastatin (Verified Adverse Reaction, Intermediate, myalgia, 10/11/20) clopidogrel (Verified Adverse Reaction, Intermediate, rectal bleeding, 10/11/20) pioglitazone (Verified Adverse Reaction, Intermediate, myalgia, 10/11/20) rosuvastatin (Verified Adverse Reaction, Intermediate, leg cramps, 10/11/20) lactose (Verified Adverse Reaction, Mild, diarrhea, 10/11/20) heparin (Verified Adverse Reaction, Unknown, rectal bleeding, 10/11/20) Past Medical History Medical History 1. Vieno-Igmdiflrs-Xverh (WPW) syndrome 2. CAD s/p CABG and stents 3. Hypertension 4. NIDDM 5. PVD 6. CKD stage 4 7. Atrial fibrillation not on anticoagulation due to GI bleed and patient choice Surgical History 1. Bariatric surgery 2. CABG Family History Father: History of hypertension, DM, and CAD Mother: History of hypertension, DM and CAD Social History * Smoker: former Smoker (used to smoke 1ppd for 30 years) Alcohol: other (History of alcohol use, but currently not using alcohol) Drugs: denies A-FIB/CHADSVASC A-FIB History Current/History of A-Fib/PAF?: Yes Current PO Anticoag Therapy: No Treatment Reason Anticoagulant not given: Patient refusal, Recent/upcomin procedure Review of Systems Constitutional: Reports: Weakness; Denies: Chills, Fever Eyes: Denies: Vision change ENT: Reports: Other Symptoms (metalic taste in mouth); Denies: Sore Throat Skin: Reports: Itching (diffuse pruritis) Pulmonary: Denies: Dyspnea, Cough Cardiovascular: Denies: Chest Pain Gastrointestinal: Denies: Abdominal Pain Genitourinary: Reports: Other Symptoms (decreased urinary output); Denies: Dysuria Hematologic: Denies: Bruising Neurological: Denies: Numbness Psych: Reports: Depression; Denies: Anxiety Physical Examination General Exam: Positive: Alert, Cooperative Eye Exam: Positive: EOMI; Negative: Sclera icteric ENT Exam: Positive: Atraumatic Neck Exam: Positive: Supple Chest Exam: Positive: Clear to auscultation; Negative: Rales, Rhonchi, Wheezing Heart Exam: Positive: Rate Normal, Regular Rhythm Abdomen Exam: Positive: Normal bowel sounds, Soft; Negative: Tenderness Extremity Exam: Positive: Edema (Pitting on anterior perdomo) Neuro Exam: Positive: Normal Speech, Cranial Nerves 3-12 NL Psych Exam: Positive: Mental status NL, Mood NL Vital Signs Vital Signs Date Time Temp Pulse Resp B/P (MAP) Pulse Ox O2 Delivery O2 Flow Rate FiO2 01/06/21 15:49 01/06/21 14:26 98.0 77 18 99 Room Air Laboratory Data Labs 24H Laboratory Tests 2 01/06/21 14:41: Immature Granulocyte % (Auto) 0.9, Neutrophils (%) (Auto) 69.7H, Lymphocytes (%) (Auto) 14.7L, Monocytes (%) (Auto) 9.7H, Eosinophils (%) (Auto) 4.5H, Basophils (%) (Auto) 0.5, Neutrophils # (Auto) 5.9, Lymphocytes # (Auto) 1.3L, Monocytes # (Auto) 0.8, Eosinophils # (Auto) 0.4, Basophils # (Auto) 0.0, Nucleated Red Blood Cells % (auto) 0.5H, Prothrombin Time 14.6H, Prothromb Time International Ratio 1.12, Activated Partial Thromboplast Time 33.0, Anion Gap 11, Glomerular Filtration Rate 4.8L, Calcium Level 8.8, Total Bilirubin 0.4, Direct Bilirubin 0.1, Aspartate Amino Transf (AST/SGOT) 14, Alanine Aminotransferase (ALT/SGPT) 15, Alkaline Phosphatase 82, Total Creatine Kinase 128, Creatine Kinase MB 2.3, Creatine Kinase MB Relative Index 1.80, Troponin I 0.05, Total Protein 6.9, Albumin 3.8, Albumin/Globulin Ratio 1.2, Lipase 257, Thyroid Stimulating Hormone (TSH) 0.537 01/06/21 14:55: Coronavirus (COVID-19)(PCR) NEGATIVE, Influenza Type A (RT-PCR) NEGATIVE, Influenza Type B (RT-PCR) NEGATIVE, Respiratory Syncytial Virus (PCR) NEGATIVE CBC/BMP Laboratory Tests 01/06/21 14:41 Assessment/Plan Mr. Vasquez is a 75 year old male with CKD stage 4 and CAD s/p CABG and stents who presents from nephrology's office for acute renal failure, metabolic acidosis, and hyperkalemia. Unclear cause, but patient is on furosemide at home. Irbesartan may have contributed as well in addition to patient's hypertension. Nephrology consulted, recommendations appreciated. Patient will be continued on bicarbonate drip for metabolic acidosis. Patient's BMP will be checked frequently and examined for hyperkalemia. Recommend using Kayexalate for hyperka lemia. Otherwise, anticipate PermCath insertion by IR tomorrow for dialysis. Plan / VTE VTE Prophylaxis Ordered?: Yes Plan Plan 1. ARF on CKD stage 4 -Nephrology consulted, recommendations appreciated -Irbesartan and Furosemide will be held -PermCath inserted by IR tomorrow for anticipated dialysis during this hospitalization 2. Hyperkalemia -Peaked T-waves on EKG -Recheck BMP frequently -Kayexalate if potassium is elevated 3. NAGMA -Bicarb 13 (Anion gap 11) -Secondary to ARF -Bicarb drip for a total of 3L (1L by ED, 2L by me) 4. Diabetes mellitus type 2 -Sliding scale insulin -Start Levemir at 10u qHS and increase as needed (on Basaglar 20 at home) 5. Macrocytic anemia -Will check a B12 level tomorrow morning -May also be secondary to anemia of chronic disease 6. Paroxysmal atrial fibrillation -Not in atrial fibrillation at this time -Continue Coreg -Do to GI bleed and patient's choice, patient does not want to be on anticoagulation 7. WPW -No nondihydropyradine calcium channel blockers (Verapamil and diltiazem) -Monitor on telemetry 8. Hypertension -Holding irbesartan, minoxidil, and furosemide -IV hydralazine as needed -PO coreg -Can consider IV labetalol, IV/topical nitroglycerin 9. DVT ppx -Plan for PermCath tomorrow, no chemical ppx tonight -SCD and TEDs Disposition: Pending clinical improvement MAGALY BOSTON DO January 06, 2021 18:33
[2021-01-06 19:31] LABS: CALCIUM LEVEL 8.6 MG/DL (8.8-10.2); CREATININE FOR GFR 10.9 MG/DL (0.70-1.30); GLOMERULAR FILTRATION RATE 4.9 (>42); POTASSIUM SERUM 6.8 MEQ/L (3.5-5.1)
[2021-01-06] MEDS: NITROGLYCERIN 0.4 MG SUBL TABLET SL PRN ×2 (19:36→21:32)
[2021-01-06 20:00] VITALS: BP 160/58
[2021-01-06] MEDS: CARVedilol 12.5 MG TAB PO SCH (20:35)
[2021-01-06] MEDS: SODIUM BICARBONATE 150 MEQ in D5W 1,000 ML IV SCH (20:35)
[2021-01-06] MEDS: FERROUS SULFATE 325MG TAB PO SCH (20:35)
[2021-01-06] MEDS: EZETIMIBE 10 MG TAB (ZETIA) PO SCH (20:35)
[2021-01-06] MEDS: LEVEMIR (INSULIN DETEMIR) 1 UNITS/0.01ML SC SCH (20:57)
[2021-01-06 22:53] LABS: APPEARANCE, URINE HAZY (CLEAR); COLOR, URINE YELLOW (YELLOW)
[2021-01-06 22:54] LABS: BILIRUBIN, URINE AUTO NEGATIVE (NEGATIVE); BLOOD, URINE BLOOD NEGATIVE (NEGATIVE); GLUCOSE, URINE (UA) AUTO 1+ mg/dL (NEGATIVE); KETONE, URINE AUTO NEGATIVE (NEGATIVE); LEUKOCYTE ESTERASE, URINE AUTO NEGATIVE (NEGATIVE); NITRITE, URINE AUTO NEGATIVE (NEGATIVE); PROTEIN, URINE AUTO 2+ mg/dL (NEGATIVE); RBC, URINE AUTO 3 /HPF (0-3); SPECIFIC GRAVITY URINE AUTO 1.009 (1.002-1.035); SQUAMOUS EPITHELIAL CELL UR AU 0 /HPF (0-6); UROBILINOGEN, URINE AUTO 0.2 mg/dL (0.0-2.0); WBC, URINE AUTO 5 /HPF (0-3)
[2021-01-06 23:14] LABS: CALCIUM LEVEL 7.7 MG/DL (8.8-10.2); CREATININE FOR GFR 10.6 MG/DL (0.70-1.30); GLOMERULAR FILTRATION RATE 5.1 (>42); POTASSIUM SERUM 5.4 MEQ/L (3.5-5.1)
[2021-01-07] VITALS: BP 124/58
[2021-01-07 03:10] LABS: HEMATOCRIT 28.6 % (42.0-52.0); HEMOGLOBIN 8.9 g/dl (13.5-17.5); MEAN CORPUSCULAR HEMOGLOBIN 33.1 pg (27.0-33.0); MEAN CORPUSCULAR HGB CONC 31.1 g/dl (32.0-36.5); MEAN CORPUSCULAR VOLUME 106.3 fl (80.0-96.0); PLATELET COUNT, AUTOMATED 287 10^3/uL (150-450); RED BLOOD COUNT 2.69 10^6/uL (4.30-6.10)
[2021-01-07 03:41] LABS: CALCIUM LEVEL 7.8 MG/DL (8.8-10.2); CREATININE FOR GFR 10.3 MG/DL (0.70-1.30); GLOMERULAR FILTRATION RATE 5.3 (>42); POTASSIUM SERUM 5.1 MEQ/L (3.5-5.1)
[2021-01-07 04:00] VITALS: BP_SYST 112; BP_SYST 124; BP_DIAS 55; BP_DIAS 58
[2021-01-07] MEDS: SODIUM BICARBONATE 150 MEQ in D5W 1,000 ML IV SCH (04:21)
--- NOTE | 2021-01-07 05:45 | ECGEPIP ---
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
[2021-01-07] MEDS: HumaLOG INSULIN (NovoLOG) PER UNIT SC SCH ×4 (07:30→21:00)
[2021-01-07 08:00] VITALS: BP 170/72
[2021-01-07] MEDS: FERROUS SULFATE 325MG TAB PO SCH ×2 (08:15→21:06)
[2021-01-07] MEDS: CARVedilol 12.5 MG TAB PO SCH ×2 (08:15→21:07)
[2021-01-07] MEDS: PANTOPRAZOLE 40MG TAB (PROTONIX) PO SCH (08:15)
[2021-01-07] MEDS: LACTOBACILLUS ACIDOPHILUS CAP (BACID) PO SCH ×2 (08:15→17:39)
[2021-01-07] MEDS: CYANOCOBALAMIN 500 MCG TAB PO SCH (08:15)
[2021-01-07 09:18] LABS: HEMATOCRIT 31.1 % (42.0-52.0); HEMOGLOBIN 9.8 g/dl (13.5-17.5); MEAN CORPUSCULAR HGB CONC 31.5 g/dl (32.0-36.5); MEAN CORPUSCULAR VOLUME 104.7 fl (80.0-96.0); PLATELET COUNT, AUTOMATED 326 10^3/uL (150-450); RED BLOOD COUNT 2.97 10^6/uL (4.30-6.10); WHITE BLOOD COUNT 6.3 10^3/uL (4.0-10.0)
[2021-01-07 09:56] LABS: BLOOD UREA NITROGEN 100 MG/DL (7-18); CARBON DIOXIDE LEVEL 20 MEQ/L (21-32); CHLORIDE LEVEL 106 MEQ/L (98-107); FERRITIN 788 NG/ML (26-388); GLOMERULAR FILTRATION RATE 5.5 (>42); GLUCOSE, FASTING 179 MG/DL (70-100); IRON (FE) 49 UG/DL (65-175); PERCENT SATURATION 26.6 % (19.7-50.0); POTASSIUM SERUM 5.2 MEQ/L (3.5-5.1); SODIUM LEVEL 137 MEQ/L (136-145); TOTAL IRON BINDING CAPACITY 184 UG/DL (250-450)
[2021-01-07] MEDS ORDERED: LIDOCAINE 1% MDV 20ML VIAL As Ordered ONE (10:34)
[2021-01-07] MEDS ORDERED: diphenhydrAMINE 50MG/ML VIAL (J1200) As Ordered ONE (11:03)
[2021-01-07] MEDS ORDERED: ceFAZolin 2 GM/D5W 50 ML IV BAG (J0690 PER 500MG) As Ordered ONE (11:03)
[2021-01-07] MEDS ORDERED: MIDAZOLAM INJ 2MG/2ML VIAL (J2250 PER 1MG) As Ordered ONE (11:04)
[2021-01-07] MEDS ORDERED: fentaNYL 100 MCG/2 ML INJECTION (J3010) As Ordered ONE (11:04)
--- NOTE | 2021-01-07 11:13 | IRMSE ---
[facility] IR Moderate Sedation Eval. Date and Time Date: January 07, 2021 Time: 11:13 ASA Classification ASA Classification: III-Severe systemic dis. Mallampati Score: II NPO: Yes Obstructive Sleep Apnea: No Interval Plan: moderate sedation MAXIM QUICK MD January 07, 2021 11:13
--- NOTE | 2021-01-07 11:54 | REP ---
INDICATION: joselin on ckd 4. COMPARISON: Comparison CT study October 11, 2020.. TECHNIQUE: Urinary tract sonography. FINDINGS: Scanning at the level of the urinary bladder shows no abnormality. Renal cortical echogenicity pattern is normal bilaterally and contours are smooth. There is no evidence of hydronephrosis, cyst, mass, or calculus in either kidney. The right kidney measures 12.2 x 6.3 x 5.7 cm. Left renal dimensions are 11.6 x 5.1 x 6.7 cm. IMPRESSION: Normal urinary tract sonography. <Electronically signed by Good Lima > 01/07/21 [id number]
--- NOTE | 2021-01-07 12:02 | IRPON ---
IR Postoperative Note Date Of Procedure: January 07, 2021 Time Of Procedure: 12:01 IR Postoperative Note IR PermCath placement. IR PermCath insertion under fluoroscopic and ultrasound guidance. IR Ultrasound of the right neck. IR Moderate sedation. Clinical Information:Renal failure. Physician: Dr. Higginbotham. Procedure: The patient was advised of the benefits, risks, and alternatives of the procedure and informed consent was obtained. A time out was performed with verification of the patient's name, MRN, site of procedure, and type of procedure to be performed. The patient was positioned in the supine position on the angiographic table. The site was prepped and draped in the usual sterile fashion. Moderate sedation was performed by the physician including the presence of an i ndependent trained RN who assisted in monitoring the patient's level of consciousness and physiological status. Following the administration of Fentanyl and Versed, the physician spent 45 minutes of continuous [id number] time with the patient. Ultrasound of the neck reveals a patent and compressible right internal jugular vein. A merchandise executive radiograph reveals cardiac stent and median sternotomy wires. The neck and anterior chest wall were anesthetized with lidocaine. The right internal jugular vein was accessed using a microintroducer needle via a lateral approach. A 0.018 cope wire was advanced into the superior vena cava, the needle was removed and a microintroducer sheath was placed. An Amplatz wire was then passed into the inferior vena cava. Incisions at the internal jugular access site and anterior chest wall were made using a scalpel. A 19 cm palindrome catheter was inserted through subcutaneous tissues of the chest wall with a tunneling device. The microintroducer sheath was removed and the internal jugular puncture site was upsized with a dilator. A peel-away sheath was placed over the wire and into the superior vena cava. The wire and insert were removed. The catheter was passed into the internal jugular vein via the sheath. The peel away sheath was then removed. The catheter tip was positioned at the right atrium. The puncture site was closed with glue. The catheter was secured in place using a 2-0 Prolene. Both sites were cleansed and sterile dressings were applied. At the conclusion of the procedure, the ports of the catheter aspirated and flushed freely. The catheter was locked with high-dose heparin. The patient tolerated the procedure well and was returned to the PRU in stable condition. EBL: < 5 ml. Complications: None. Conclusion: Successful placement of a 19 cm palindrome PermCath. The catheter is ready for immediate use. Thank you for this referral. MAXIM HIGGINBOTHAM MD January 07, 2021 12:02
--- NOTE | 2021-01-07 12:47 | IPNPDOC ---
Subjective Date Seen The patient was seen on 01/07/21. Subjective Chief Complaint/HPI Mr. Vasquez is a 75 year old male with CKD stage 4 and CAD s/p CABG and stents who presents from nephrology's office for acute renal failure and hyperkalemia. This morning, patient denies any chest pain or worsening dyspnea. I spoke with nephrology. Patient is not expected to recover renal function. Plan for IR to place PermCath, then dialysis this afternoon. Objective Physical Examination General Exam: Positive: Alert, Cooperative Eye Exam: Positive: EOMI; Negative: Sclera icteric ENT Exam: Positive: Atraumatic Neck Exam: Positive: Supple Chest Exam: Positive: Clear to auscultation; Negative: Rales, Rhonchi, Wheezing Heart Exam: Positive: Rate Normal, Regular Rhythm Abdomen Exam: Positive: Normal bowel sounds, Soft; Negative: Tenderness Extremity Exam: Positive: Edema (Pitting on anterior perdomo) Neuro Exam: Positive: Normal Speech, Cranial Nerves 3-12 NL Psych Exam: Positive: Mental status NL, Mood NL Assessment /Plan Assessment Mr. Vasquez is a 75 year old male with CKD stage 4 and CAD s/p CABG and stents who presents from nephrology's office for acute renal failure, metabolic acidosis, and hyperkalemia. Unclear cause, but patient is on furosemide at home. Irbesartan may have contributed as well in addition to patient's hypertension. Nephrology consulted, recommendations appreciated. Patient will have insertion of PermCath on 01/07/21 in the morning and dialysis in the afternoon. Plan/VTE VTE Prophylaxis Ordered?: Yes Plan 1. ARF on CKD stage 4 -Nephrology consulted, recommendations appreciated -Irbesartan and Furosemide will be held -PermCath inserted by IR 01/07. -Anticipate dialysis today 2. Hyperkalemia -Patient to go to dialysis today 3. NAGMA -On admission, Bicarb 13 (Anion gap 11) -Secondary to ARF -On admission, patient was on bicarb drip -Improved, now discontinued 4. Diabetes mellitus type 2 -Sliding scale insulin -Start Levemir at 10u qHS and increase as needed (on Basaglar 20 at home) 5. Macrocytic anemia -Will check a B12 level tomorrow morning -May also be secondary to anemia of chronic disease 6. 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 Hypertension -Holding irbesartan, minoxidil, and furosemide -IV hydralazine as needed -PO coreg -Can consider IV labetalol, IV/topical nitroglycerin 9. DVT ppx -SCD and TEDs Disposition: Pending clinical improvement VS, I&O, 24H, Fishbone Vital Signs/I&O Vital Signs Date Time Temp Pulse Resp B/P (MAP) Pulse Ox O2 Delivery O2 Flow Rate FiO2 01/07/21 11:55 83 18 100 Nasal Cannula 2.0 01/07/21 10:45 98.3 01/07/21 08:15 172/74 I&O- Last 24 Hours up to 6 AM 01/07/21 06:00 Intake Total 2250 ml Output Total 625 ml Balance 1625 ml Laboratory Data 24H LABS Laboratory Tests 2 01/06/21 14:41: Immature Granulocyte % (Auto) 0.9, Neutrophils (%) (Auto) 69.7H, Lymphocytes (%) (Auto) 14.7L, Monocytes (%) (Auto) 9.7H, Eosinophils (%) (Auto) 4.5H, Basophils (%) (Auto) 0.5, Neutrophils # (Auto) 5.9, Lymphocytes # (Auto) 1.3L, Monocytes # (Auto) 0.8, Eosinophils # (Auto) 0.4, Basophils # (Auto) 0.0, Nucleated Red Blood Cells % (auto) 0.5H, Prothrombin Time 14.6H, Prothromb Time International Ratio 1.12, Activated Partial Thromboplast Time 33.0, Anion Gap 11, Glomerular Filtration Rate 4.8L, Calcium Level 8.8, Total Bilirubin 0.4, Direct Bilirubin 0.1, Aspartate Amino Transf (AST/SGOT) 14, Alanine Aminotransferase (ALT/SGPT) 15, Alkaline Phosphatase 82, Total Creatine Kinase 128, Creatine Kinase MB 2.3, Creatine Kinase MB Relative Index 1.80, Troponin I 0.05, Total Protein 6.9, Albumin 3.8, Albumin/Globulin Ratio 1.2, Lipase 257, Thyroid Stimulating Hormone (TSH) 0.537 01/06/21 14:55: Coronavirus (COVID-19)(PCR) NEGATIVE, Influenza Type A (RT-PCR) NEGATIVE, Inf luenza Type B (RT-PCR) NEGATIVE, Respiratory Syncytial Virus (PCR) NEGATIVE 01/06/21 18:19: Bedside Glucose (Misc Panel) 202H 01/06/21 18:43: Anion Gap 8, Glomerular Filtration Rate 4.9L, Calcium Level 8.6L 01/06/21 20:56: Bedside Glucose (Misc Panel) 144H 01/06/21 22:20: Urine Color YELLOW, Urine Appearance HAZY, Urine pH 5.0, Urine Specific [place] 1.009, Urine Protein 2+H, Urine Glucose (Auto)(UA) 1+H, Urine Ketones (Auto) NEGATIVE, Urine Blood NEGATIVE, Urine Nitrite NEGATIVE, Urine Bilirubin NEGATIVE, Urine Urobilinogen 0.2, Urine Leukocyte Esterase (Auto) NEGATIVE, Urine WBC (Auto) 5H, Urine RBC (Auto) 3, Urine Squamous Epithelial Cells 0, Urine Sperm (Auto) 01/06/21 22:42: Anion Gap 12, Glomerular Filtration Rate 5.1L, Calcium Level 7.7L 01/07/21 03:00: Anion Gap 11, Glomerular Filtration Rate 5.3L, Calcium Level 7.8L, Nucleated Red Blood Cells % (auto) 1.0H 01/07/21 07:50: Bedside Glucose (Misc Panel) 182H 01/07/21 08:55: Reticulocyte # (auto) 103.7H, Nucleated Red Blood Cells % (auto) 0.5H, Percent Reticulocyte Count 3.5H, Reticulocyte Hemoglobin Equivalent 35.0, Anion Gap 11, Glomerular Filtration Rate 5.5L, Calcium Level 8.0L, Iron Level 49L, Total Iron Binding Capacity 184L, Transferrin % Saturation 26.6, Ferritin 788H CBC/BMP Laboratory Tests 01/06/21 14:41 01/06/21 18:43 01/06/21 22:42 01/07/21 03:00 01/07/21 08:55 MAGALY BOSTON DO January 07, 2021 12:47
[2021-01-07 14:45] LABS: HEPATITIS B SURFACE ANTIBODY NEGATIVE (POSITIVE)
[2021-01-07 14:56] LABS: HEPATITIS B SURFACE ANTIGEN NEGATIVE (NEGATIVE)
[2021-01-07 15:10] VITALS: BP 190/72
[2021-01-07] MEDS: hydrALAZINE 20MG/ML 1ML VIAL (J0360 PER 20MG) IV PRN (15:20)
[2021-01-07 15:24] LABS: HEPATITIS B CORE ANTIBODY IGM NEGATIVE (NEGATIVE)
--- NOTE | 2021-01-07 16:47 | CR ---
NEPHROLOGY CONSULTATION DATE: 01/07/2021 REQUESTING PHYSICIAN: Dr. Boyd Cerna. REASON FOR CONSULTATION: Acute kidney injury superimposed on chronic kidney disease (CKD) stage IV with severe hyperkalemia and severe metabolic acidosis. HISTORY OF PRESENT ILLNESS: Mr. Jakob Moore is a 75-year-old male, established office patient of Dr. Nellie Guevara with a past medical history of chronic kidney disease (CKD) stage IV with baseline GFR of about 20-25 mL/min with a baseline creatinine of around 2.8 and other past medical history including myelodysplastic syndrome dependent on Procrit injections, coronary artery disease status post coronary artery bypass graft (CABG), hypertension, benign prostatic hypertrophy (BPH), dyslipidemia, insulin-dependent diabetes mellitus and other comorbid conditions mentioned below. Patient was recently admitted to [facility] last month. He has recently had trouble with gallstone pancreatitis and had a biliary drain, which he reports was removed a few weeks ago. He has been feeling poorly since his hospital discharge and reports loss of appetite, generalized malaise, weakness, nausea and a bitter, metallic taste in the mouth. He called the nephrology office yesterday with these complaints and also noted increased leg swelling. He was given an urgent appointment in the nephrology office and labs done showed creatinine of 9.0 with potassium of 8.0 and the patient was urgently sent to the emergency room. In the emergency room, laboratory studies again revealed severe hyperkalemia and renal failure with blood urea nitrogen above 100. Patient was found to be significantly acidotic with serum bicarbonate of 13. He was started on aggressive bicarbonate-containing intravenous (IV) fluids and given a dose of Kayexalate and patient is seen and examined by myself this morning in the hemodialysis unit. He just had a Permacath placed and is now getting his first dialysis treatment. PASTMEDICAL HISTORY: 1. Chronic kidney disease (CKD) stage IV, baseline GFR 20-25 mL/min. 2. Myelodysplastic syndrome. 3. Benign prostatic hypertrophy. 4. Coronary artery disease. 5. Type 2 diabetes mellitus, insulin-dependent. 6. Dyslipidemia. 7. Hypertension. 8. Erectile dysfunction. 9. Obesity. 10. Secondary hyperparathyroidism of renal origin. 11. Osteoarthritis. 12. Diverticulitis. 13. Carotid stenosis. 14. History of gastrointestinal (GI) bleed. 15. Chronic obstructive pulmonary disease (COPD). 16. History of gallstone pancreatitis. 17. Hfvwm-Cejvkismg-Nbyep syndrome. 18. Atrial fibrillation not on anticoagulation due to patient choice and history of GI bleed. SURGICAL HISTORY: 1. Coronary artery bypass graft (CABG) in 2013. 2. Gastric bypass in 2016. 3. Coronary artery stenting. 4. Upper and lower endoscopy. 5. Capsule endoscopy. 6. Permacath placement. 7. Biliary drainage tube placement and removal. ALLERGIES: ATORVASTATIN, PLAVIX, HEPARIN, LACTOSE, NICOTINE, RESUVASTATIN. FAMILY HISTORY: Hypertension, diabetes and coronary artery disease. SOCIAL HISTORY: He is an ex-smoker. Denies current alcohol. Denies history of drug use. HOME MEDICATIONS: Include: - Basaglar insulin - Caltrate once daily - carvedilol 25 mg twice a day - Zetia 10 mg by mouth daily - ferrous sulfate 325 mg twice a day - Lasix 20 mg daily - hydralazine 25 mg three times a day - irbesartan 300 mg daily - minoxidil 2.5 mg twice a day - multivitamin daily - Protonix 40 mg daily - probiotic twice a day - Procrit 40,000 units every other week subcutaneous through the [facility] - vitamin B12 1000 mcg every day - vitamin C 500 mg daily - vitamin D3 10,000 units per week REVIEW OF SYSTEMS: CONSTITUTIONAL: He reports poor appetite, decreased energy and feeling weak. EYES: Denies eye symptoms. Denies tearing. EARS, NOSE AND THROAT (ENT): Denies nasal symptoms. Reports bitter taste in the mouth. Denies odynophagia. CARDIAC: Reports edema. Denies chest pain or palpitations. Has a history of atrial fibrillation. RESPIRATORY: Reports chronic obstructive pulmonary disease (COPD). Denies cough or hemoptysis. GASTROINTESTINAL: Denies vomiting. Reports decreased appetite. Reports recent gallbladder issues and gallstone pancreatitis. GENITOURINARY: Reports decreased urine. Denies dysuria or hematuria. MUSCULOSKELETAL: Reports lower back pain. Denies acute myalgias or arthralgias. SKIN: Denies any acute rashes or ulcers. NEUROLOGIC: Denies seizures, syncope. PSYCHIATRIC: Denies psychiatric symptoms. ENDOCRINE: Has a history of secondary hyperparathyroidism and insulin-dependent diabetes mellitus. HEMATOLOGIC: Reports myelodysplastic syndrome and denies any anticoagulant use. PHYSICAL EXAMINATION: VITAL SIGNS: Temperature 97.1, pulse 89, respiratory rate 20, blood pressure 140/90, saturating 100% on 2 liters nasal cannula. INTAKE AND OUTPUT: Intake yesterday was 1.3 liters. Urine output was 400 mL. Weight in the bed scale today is 84.1 kg. GENERAL: Patient seen in the hemodialysis unit receiving his first ever dialysis treatment. Awake, alert, oriented times three, comfortable, in no distress. HEENT: Extraocular muscles intact. Tongue is moist. Neck is supple. There is a newly placed Permacath in the right chest wall, which is in use. HEART SOUNDS: S1, S2. Normal rate and trace leg edema. Peripheral pulses are palpable. LUNGS: Clear to auscultation bilaterally. No crackle, rale or rhonchus. ABDOMEN: Soft and nontender. There are bowel sounds. EXTREMITIES: Negative for clubbing or cyanosis. There is, at most, only trace leg edema. NEUROLOGIC: He is oriented times three, at baseline mentation. SKIN: Warm and dry, normal temperature. LABORATORY DATA: On admission, his potassium was 7.8, current potassium is 5.2. On admission, bicarbonate was 13, current bicarbonate is 20. BUN 100, creatinine 10.0. Transferrin saturation 26%. Hemoglobin 9.8, platelets 326, white count 6.3. Renal ultrasound done last night is negative for any obstruction. Chest x-ray done yesterday shows clear lungs and sharp pleural angles. INPATIENT MEDICATIONS: - He got a dose of Kayexalate 30 grams times one - He is on a sodium bicarbonate drip 150 mEq of sodium bicarbonate in D5W running at 150 mL/hour - Tylenol as needed - carvedilol 25 mg by mouth twice a day - vitamin B12 500 mcg by mouth daily - Zetia 10 mg by mouth at bedtime - ferrous sulfate 325 mg by mouth twice a day - hydralazine 10 mg IV every 4 hours as needed for systolic greater than 160 (only one dose has been given) - insulin - Bacid 1 with meals twice a day - Protonix 40 mg by mouth daily PROBLEMS: 1. Acute kidney injury superimposed on chronic kidney disease (CKD) stage IV. Patient's baseline GFR is about 20-25% mL/min. He now has an acute kidney injury and is requiring hemodialysis initiation. I discussed with the patient and with his daughter, Cherry, that the likelihood of renal recovery is very slim, given his advanced underlying renal dysfunction. He had a Permacath placed today. He is having his first dialysis treatment today with orders written for gentle treatment to avoid any dialysis dysequilibrium syndrome and I would plan to dialyze him again tomorrow, January 08, 2021, and he is going to need arrangement for outpatient hemodialysis to be set up. 2. Hyperkalemia. It is due to severe renal failure with concomitant use of angiotensin receptor hammad (ARB) (takes irbesartan at home). He is off all angiotensin converting enzyme (ARSH), ARB, et cetera. He is on a renal diet. He received aggressive bicarbonate-containing fluids last night along with Kayexalate. His potassium level has come down from 8.0 in the nephrology office yesterday to 5.2 predialysis today. He is being dialyzed with a 2.0 mEq potassium bath. 3. Metabolic acidosis. Serum bicarbonate was as low as 13 on arrival in the setting of renal failure. He was given aggressive bicarbonate-containing fluids yesterday and his acidosis will improved with his dialysis treatments. 4. Hypertension. We are removing 1 liter of fluid with dialysis today and his blood pressures are reasonable. Systolic was in the 140s predialysis this morning and he is on carvedilol. 5. Myelodysplastic syndrome. Patient is dependent on erythropoiesis stimulating agent and we will manage this now with his hemodialysis. I note his iron stores are intact. 6. Insulin-dependent diabetes mellitus. Managed by the primary service. Thank you for involving me in the care of Mr. Moore. I will be happy to follow him along with you.
[2021-01-07 17:30] VITALS: BP 164/72
[2021-01-07 20:00] VITALS: BP 143/67
[2021-01-07] MEDS: EZETIMIBE 10 MG TAB (ZETIA) PO SCH (21:06)
[2021-01-07] MEDS: LEVEMIR (INSULIN DETEMIR) 1 UNITS/0.01ML SC SCH (21:07)
[2021-01-08] VITALS (10 sets, daily range): BP systolic 130–198; BP diastolic 58–81
[2021-01-08 05:47] LABS: HEMOGLOBIN 9.1 g/dl (13.5-17.5); MEAN CORPUSCULAR HEMOGLOBIN 33.2 pg (27.0-33.0); MEAN CORPUSCULAR HGB CONC 31.4 g/dl (32.0-36.5); MEAN CORPUSCULAR VOLUME 105.8 fl (80.0-96.0); PLATELET COUNT, AUTOMATED 227 10^3/uL (150-450); RED BLOOD COUNT 2.74 10^6/uL (4.30-6.10); WHITE BLOOD COUNT 7.9 10^3/uL (4.0-10.0)
[2021-01-08] MEDS: HumaLOG INSULIN (NovoLOG) PER UNIT SC SCH ×4 (07:30→20:36)
[2021-01-08 07:59] LABS: ALBUMIN 2.8 GM/DL (3.2-5.2); BLOOD UREA NITROGEN 68 MG/DL (7-18); CALCIUM LEVEL 7.6 MG/DL (8.8-10.2); CARBON DIOXIDE LEVEL 24 MEQ/L (21-32); CHLORIDE LEVEL 107 MEQ/L (98-107); CREATININE FOR GFR 8.39 MG/DL (0.70-1.30); GLOMERULAR FILTRATION RATE 6.7 (>42); GLUCOSE, FASTING 114 MG/DL (70-100); MAGNESIUM LEVEL 1.8 MG/DL (1.8-2.4); PHOSPHORUS LEVEL 5.7 MG/DL (2.5-4.9); POTASSIUM SERUM 5.1 MEQ/L (3.5-5.1); SODIUM LEVEL 141 MEQ/L (136-145)
[2021-01-08] MEDS: CARVedilol 12.5 MG TAB PO SCH ×2 (07:59→20:14)
[2021-01-08] MEDS: LACTOBACILLUS ACIDOPHILUS CAP (BACID) PO SCH ×2 (08:00→18:03)
--- NOTE | 2021-01-08 08:49 | IPNPDOC ---
Subjective Date Seen The patient was seen on 01/08/21. Subjective Chief Complaint/HPI Mr. Vasquez is a 75 year old male with CKD stage 4 and CAD s/p CABG and stents who presents from nephrology's office for acute renal failure and hyperkalemia. Yesterday, he had his PermCath inserted and he had his first round of dialysis. Today, he denies any chest pain, but still has a metallic taste and a poor appetite. Plan for another round of dialysis today. Objective Physical Examination General Exam: Positive: Alert, Cooperative Eye Exam: Positive: EOMI; Negative: Sclera icteric ENT Exam: Positive: Atraumatic Neck Exam: Positive: Supple Chest Exam: Positive: Clear to auscultation; Negative: Rales, Rhonchi, Wheezing Heart Exam: Positive: Rate Normal, Regular Rhythm Abdomen Exam: Positive: Normal bowel sounds, Soft; Negative: Tenderness Extremity Exam: Positive: Edema (Pitting on anterior perdomo) Neuro Exam: Positive: Normal Speech, Cranial Nerves 3-12 NL Psych Exam: Positive: Mental status NL, Mood NL Assessment /Plan Assessment Mr. Vasquez is a 75 year old male with CKD stage 4 and CAD s/p CABG and stents who presents from nephrology's office for acute renal failure, metabolic acidosis, and hyperkalemia. Unclear cause, but patient is on furosemide at home. Irbesartan may have contributed as well in addition to patient's hypertension. Nephrology consulted, recommendations appreciated. Patient had insertion of PermCath and first round of dialysis on 01/07/21. Plan/VTE VTE Prophylaxis Ordered?: Yes Plan 1. ARF on CKD stage 4 -Nephrology consulted, recommendations appreciated -Irbesartan and Furosemide will be held -PermCath inserted by IR 01/07. -Anticipate dialysis today 2. Hyperkalemia -Improved, patient to go to dialysis today 3. NAGMA -Resolved with dialysis 4. Diabetes mellitus type 2 -Sliding scale insulin -Start Levemir at 10u qHS (due to poor appetite) and increase as needed (on Basaglar 20 at home) 5. Macrocytic anemia -Pending B12 level -May also be secondary to anemia of chronic disease 6. Paroxysmal atrial fibrillation -Not in atrial fibrillation at this time -Continue Coreg -Due to GI bleed and patient's choice, patient does not want to be on a nticoagulation 7. WPW -No nondihydropyradine calcium channel blockers (Verapamil and diltiazem) -Monitor on telemetry 8. Hypertension -Holding irbesartan, minoxidil, and furosemide -IV hydralazine as needed -PO coreg -Can consider IV labetalol, IV/topical nitroglycerin 9. DVT ppx -SCD and TEDs Disposition: Pending clinical improvement and nephrology's recommendations. Patient will need arrangements for outpatient hemodialysis to be set up (PFS/CM referral made) VS, I&O, 24H, Fishbone Vital Signs/I&O Vital Signs Date Time Temp Pulse Resp B/P (MAP) Pulse Ox O2 Delivery O2 Flow Rate FiO2 01/08/21 08:22 97.5 85 18 198/70 (112) 95 Room Air 01/07/21 11:55 2.0 I&O- Last 24 Hours up to 6 AM 01/08/21 05:59 Intake Total 420 ml Output Total 2610 ml Balance -2190 ml Laboratory Data 24H LABS Laboratory Tests 2 01/07/21 08:55: Reticulocyte # (auto) 103.7H, Nucleated Red Blood Cells % (auto) 0.5H, Percent Reticulocyte Count 3.5H, Reticulocyte Hemoglobin Equivalent 35.0, Haptoglobin 56, Anion Gap 11, Glomerular Filtration Rate 5.5L, Calcium Level 8.0L, Iron Level 49L, Total Iron Binding Capacity 184L, Transferrin % Saturation 26.6, Ferritin 788H, Hepatitis B Surface Antigen NEGATIVE, Hepatitis B Surface Antibody NEGATIVE, Hepatitis B Core IgM Antibody NEGATIVE, Hepatitis C Antibody Index 0.0 01/07/21 16:51: Bedside Glucose (Misc Panel) 107 01/07/21 21:04: Bedside Glucose (Misc Panel) 183H 01/08/21 05:19: Nucleated Red Blood Cells % (auto) 0.4H, Anion Gap 10, Glomerular Filtration Rate 6.7L, Calcium Level 7.6L, Phosphorus Level 5.7H, Magnesium Level 1.8, Al bumin 2.8#L 01/08/21 07:57: Bedside Glucose (Misc Panel) 124H CBC/BMP Laboratory Tests 01/07/21 08:55 01/08/21 05:19 MAGALY BOSTON DO January 08, 2021 08:49
[2021-01-08] MEDS: CYANOCOBALAMIN 500 MCG TAB PO SCH (09:00)
[2021-01-08 11:11] LABS: VITAMIN B12 LEVEL > 2000 PG/ML (247-911)
[2021-01-08] MEDS ORDERED: SODIUM CHLORIDE 0.9% 1000ML IV PRN (11:50)
[2021-01-08] MEDS: ONDANSETRON 4MG/2ML VIAL IV PRN ×2 (12:09→19:31)
[2021-01-08] MEDS: FERROUS SULFATE 325MG TAB PO SCH ×2 (12:09→20:14)
[2021-01-08] MEDS: PANTOPRAZOLE 40MG TAB (PROTONIX) PO SCH (12:09)
[2021-01-08] MEDS: hydrALAZINE 20MG/ML 1ML VIAL (J0360 PER 20MG) IV PRN ×2 (14:07→19:33)
[2021-01-08] MEDS ORDERED: CALCIUM CARBONATE 500 MG CHEW U/D PO ONE (14:55)
[2021-01-08] MEDS ORDERED: SLF 3 ML SYR IV PRN (17:00)
[2021-01-08] MEDS: METOCLOPRAMIDE INJ 10MG/2ML VIAL (J2765 PER 1) IV PRN (17:25)
[2021-01-08] MEDS ORDERED: LABETALOL 100MG/20ML VIAL IV ONE (17:30)
[2021-01-08] MEDS: LEVEMIR (INSULIN DETEMIR) 1 UNITS/0.01ML SC SCH (20:14)
[2021-01-08] MEDS: EZETIMIBE 10 MG TAB (ZETIA) PO SCH (20:14)
[2021-01-08] MEDS: SLF 3 ML SYR IV SCH (21:52)
[2021-01-08] MEDS ORDERED: ONDANSETRON 4MG/2ML VIAL IV ONE (22:50)
[2021-01-08] MEDS: NITROGLYCERIN 0.4 MG SUBL TABLET SL PRN (23:14)
[2021-01-09] VITALS (9 sets, daily range): BP systolic 145–202; BP diastolic 65–84
[2021-01-09] MEDS ORDERED: ONDANSETRON 4MG/2ML VIAL IV PRN (03:00)
[2021-01-09 05:13] LABS: HEMATOCRIT 29.2 % (42.0-52.0); MEAN CORPUSCULAR HEMOGLOBIN 32.8 pg (27.0-33.0); MEAN CORPUSCULAR HGB CONC 30.8 g/dl (32.0-36.5); MEAN CORPUSCULAR VOLUME 106.6 fl (80.0-96.0); PLATELET COUNT, AUTOMATED 152 10^3/uL (150-450); RED BLOOD COUNT 2.74 10^6/uL (4.30-6.10); WHITE BLOOD COUNT 8.9 10^3/uL (4.0-10.0)
[2021-01-09 05:43] LABS: ALBUMIN 2.8 GM/DL (3.2-5.2); CALCIUM LEVEL 7.9 MG/DL (8.8-10.2); CREATININE FOR GFR 6.35 MG/DL (0.70-1.30); GLOMERULAR FILTRATION RATE 9.2 (>42); PHOSPHORUS LEVEL 5.3 MG/DL (2.5-4.9); POTASSIUM SERUM 4.6 MEQ/L (3.5-5.1)
[2021-01-09] MEDS: SLF 3 ML SYR IV SCH ×3 (05:51→22:20)
[2021-01-09] MEDS: METOCLOPRAMIDE INJ 10MG/2ML VIAL (J2765 PER 1) IV PRN (06:08)
[2021-01-09] MEDS ORDERED: D5W/0.45% SODIUM CHLORIDE 1,000 ML IV SCH (06:50)
[2021-01-09] MEDS: HumaLOG INSULIN (NovoLOG) PER UNIT SC SCH ×4 (07:30→20:22)
[2021-01-09 08:06] LABS: TROPONIN I 0.04 NG/ML (< 0.10)
[2021-01-09] MEDS: PANTOPRAZOLE 40MG TAB (PROTONIX) PO SCH (08:50)
[2021-01-09] MEDS: LACTOBACILLUS ACIDOPHILUS CAP (BACID) PO SCH ×2 (08:50→17:12)
[2021-01-09] MEDS: CYANOCOBALAMIN 500 MCG TAB PO SCH (08:50)
[2021-01-09] MEDS: FERROUS SULFATE 325MG TAB PO SCH ×2 (08:50→20:18)
[2021-01-09] MEDS: CARVedilol 12.5 MG TAB PO SCH ×2 (08:51→20:20)
[2021-01-09] MEDS ORDERED: **hydrALAZINE HCL** 25 MG TAB PO SCH (09:00)
--- NOTE | 2021-01-09 09:59 | IPNPDOC ---
Subjective Date Seen The patient was seen on 01/09/21. Subjective Chief Complaint/HPI Mr. Vasquez is a 75 year old male with CKD stage 4 and CAD s/p CABG and stents who presents from nephrology's office for acute renal failure and hyperkalemia. Overnight, he continues to have poor appetite and nausea despite Reglan, Zofran, and TUMs. He was hypoglycemic and was started on D5W/0.45NS. This morning, he still had a poor appetite. Switched diet to clear liquids and added liquid Carafate to his PO Protonix. Plan for another round of dialysis today Objective Physical Examination General Exam: Positive: Alert, Cooperative Eye Exam: Positive: EOMI; Negative: Sclera icteric ENT Exam: Positive: Atraumatic Neck Exam: Positive: Supple Chest Exam: Positive: Clear to auscultation; Negative: Rales, Rhonchi, Wheezing Heart Exam: Positive: Rate Normal, Regular Rhythm Abdomen Exam: Positive: Normal bowel sounds, Soft; Negative: Tenderness Extremity Exam: Positive: Edema (Pitting on anterior perdomo) Neuro Exam: Positive: Normal Speech, Cranial Nerves 3-12 NL Psych Exam: Positive: Mental status NL, Mood NL Assessment /Plan Assessment Mr. Vasquez is a 75 year old male with CKD stage 4 and CAD s/p CABG and stents who presents from nephrology's office for acute renal failure, metabolic acidosis, and hyperkalemia. Unclear cause, but patient is on furosemide at home. Irbesartan may have contributed as well in addition to patient's hypertension. Nephrology consulted, recommendations appreciated. Patient had insertion of PermCath and first round of dialysis on 01/07/21. Patient will need to be set up with dialysis before discharge home. Plan/VTE VTE Prophylaxis Ordered?: Yes Plan 1. ESRD on dialysis -Previously CKD stage 4, now progressed to ESRD -Nephrology consulted, recommendations appreciated -Irbesartan and Furosemide will be held -PermCath inserted by IR 01/07. -Anticipate dialysis today 2. Hyperkalemia -Resolved with dialysis 3. NAGMA -Resolved with dialysis 4. Diabetes mellitus type 2 -Sliding scale insulin -Start Levemir at 10u qHS (due to poor appetite) and increase as needed (on Basaglar 20 at home) -Hypoglycemia protocol 5. Macrocytic anemia/Anemia of chronic disease -Secondary to ESRD -B12 level >2000 -Iron 49, Ferritin 788 6. 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 Hypertension -Holding irbesartan, minoxidil, and furosemide -IV hydralazine as needed -PO coreg -PO hydralazine restarted -Can consider IV labetalol, IV/topical nitroglycerin 9. DVT ppx -SCD and TEDs Disposition: Pending clinical improvement and nephrology's recommendations. Patient still nauseous. Patient will need arrangements for outpatient hemodialysis to be set up (PFS/CM referral made) VS, [facility]&O[facility] V[facility] Signs/I&O Vital Signs Date Time Temp Pulse Resp B/P (MAP) Pulse Ox O2 Delivery O2 Flow Rate FiO2 01/09/21 08:51 79 145/65 01/09/21 07:26 98.2 18 94 Room Air 01/07/21 11:55 2.0 I&O- Last 24 Hours up to 6 AM 01/09/21 06:00 Intake Total 570 ml Output Total 1300 ml Balance -730 ml Laboratory Data 24H LABS Laboratory Tests 2 01/08/21 11:29: Bedside Glucose (Misc Panel) 108 01/08/21 16:31: Bedside Glucose (Misc Panel) 125H 01/08/21 20:19: Bedside Glucose (Misc Panel) 123H 01/09/21 04:31: Nucleated Red Blood Cells % (auto) 0.0, Anion Gap 9, Glomerular Filtration Rate 9.2L, Calcium Level 7.9L, Phosphorus Level 5.3H, Troponin I 0.04, Albumin 2.8L 01/09/21 07:01: Bedside Glucose (Misc Panel) 161H 01/09/21 09:36: Bedside Glucose (Misc Panel) 152H CBC/BMP Laboratory Tests 01/09/21 04:31 MAGALY BOSTON DO January 09, 2021 09:59
[2021-01-09] MEDS: SUCRALFATE SUSP 1GM/10ML UD PO SCH ×3 (12:53→23:56)
--- NOTE | 2021-01-09 17:11 | ECGEPIP ---
[facility] [place] Test Date: 2021-01-09 Pat Name: LORY WINKLER Department: Room: [place] [address] Gender: Male Warp Hauler: rosangela : 1945 Requested By: MAGALY Apodaca Order Number: [id number] Reading MD: Fred Alcala Measurements Intervals [place] Rate: 83 P: 75 [place]: 126 QRS: -14 QRSD: 160 T: 72 QT: 420 QTc: 493 Interpretive Statements Normal sinus rhythm Right bundle branch block Inferior infarct , age undetermined Compared to prior tracing of 01/06/2021, there has been a frontal axis shift but t traxing is now comparable to 10/11/2020 Electronically Signed on 01-09-2021 17:10:53 EDT by Fred Alcala
[2021-01-09] MEDS: hydrALAZINE 20MG/ML 1ML VIAL (J0360 PER 20MG) IV PRN (17:12)
[2021-01-09] MEDS: EZETIMIBE 10 MG TAB (ZETIA) PO SCH (20:18)
[2021-01-09] MEDS: **hydrALAZINE HCL** 25 MG TAB PO SCH (20:19)
[2021-01-09] MEDS: LOSARTAN 50MG TABLET PO SCH (20:19)
--- NOTE | 2021-01-09 21:06 | IPN ---
PROGRESS NOTE DATE: 01/09/2021 SUBJECTIVE: Mr. Moore is seen this morning on his bedside. He is feeling better, but still reports metallic taste and poor appetite. He denies any dyspnea or chest pain. He has been dialyzed twice with significant improvement in his labs and also in his symptoms. PHYSICAL EXAMINATION: VITALS: Temperature 98.2 degrees Fahrenheit, heart rate 80 per minute, respiratory rate 18 per minute, blood pressure 145/65 mmHg, oxygen saturation 95% on room air. HEENT: Head is atraumatic. Neck is supple and without JVD or thyroid enlargement. Dialysis catheter is intact on right upper chest. LUNGS: Clear to auscultation. HEART: Sounds are regular. ABDOMEN: Soft and nontender. Bowel sounds are normal. EXTREMITIES: Without any cyanosis or clubbing. NEUROLOGIC: He is awake, alert and oriented x3. LABORATORY STUDIES: Today's labs show WBC 8.9, hemoglobin 9.0, hematocrit 29.3. Sodium 141, potassium 4.6, CO2 26, BUN 46 and creatinine 6.35. Calcium 7.9 and phosphorus 5.3. PROBLEMS: 1. Acute renal failure superimposed on chronic kidney disease: Patient has history of advanced chronic kidney disease at baseline and now he has reached end-stage renal disease. I do not feel that he has any significant chance of improvement in his kidney function and he is likely to require snf maintenance hemodialysis. He will be dialyzed this afternoon and then we will schedule him for next dialysis next week. We will also request outpatient dialysis arrangement. 2. Hyperkalemia: His hyperkalemia has completely corrected since admission when his potassium level was 8.0. His angiotensin receptor hammad was stopped at that time and I will consider to resume it now as he is dialysis dependent now and hyperkalemia has already corrected. 3. Hypertension: Blood pressure control remains suboptimal. Multiple medications have been stopped since admission due to advanced renal failure with uremia and hyperkalemia. As an outpatient, she was on Minoxidil and Irbesartan in addition to diuretic. We will continue with the same dose of Carvedilol 25 mg b.i.d. and I am also going to put him on Losartan 50 mg at bedtime and continue with current dose of Hydralazine for now. 4. Anemia: Patient has been on chronic Procrit therapy and now we will manage his anemia with hemodialysis. Next week would start with Aranesp. 5. Uremia: His uremic symptoms have improved significantly, however, not completely resolved. I hope that after dialysis today his symptoms will improve and we will continue to monitor closely. 6. Metabolic acidosis: His acidosis has corrected completely and no need for sodium bicarbonate at this point. 7. Generalized weakness: I have encouraged the patient to get out of bed and sit in the chair. He can probably also ambulate with the help of a walker.
[2021-01-09] MEDS: LEVEMIR (INSULIN DETEMIR) 1 UNITS/0.01ML SC SCH (22:21)
[2021-01-10] VITALS (8 sets, daily range): BP systolic 148–192; BP diastolic 60–76
[2021-01-10 05:16] LABS: HEMATOCRIT 28.9 % (42.0-52.0); HEMOGLOBIN 8.9 g/dl (13.5-17.5); MEAN CORPUSCULAR HEMOGLOBIN 33.1 pg (27.0-33.0); MEAN CORPUSCULAR HGB CONC 30.8 g/dl (32.0-36.5); MEAN CORPUSCULAR VOLUME 107.4 fl (80.0-96.0); PLATELET COUNT, AUTOMATED 109 10^3/uL (150-450); RED BLOOD COUNT 2.69 10^6/uL (4.30-6.10); WHITE BLOOD COUNT 8.7 10^3/uL (4.0-10.0)
[2021-01-10] MEDS: SUCRALFATE SUSP 1GM/10ML UD PO SCH ×4 (05:33→23:30)
[2021-01-10] MEDS: SLF 3 ML SYR IV SCH ×3 (05:34→20:57)
[2021-01-10 05:42] LABS: ALBUMIN 2.7 GM/DL (3.2-5.2); CREATININE FOR GFR 4.55 MG/DL (0.70-1.30); GLOMERULAR FILTRATION RATE 13.5 (>42); POTASSIUM SERUM 4.5 MEQ/L (3.5-5.1)
[2021-01-10] MEDS: HumaLOG INSULIN (NovoLOG) PER UNIT SC SCH ×4 (07:10→20:43)
[2021-01-10] MEDS: PANTOPRAZOLE 40MG TAB (PROTONIX) PO SCH (08:03)
[2021-01-10] MEDS: LACTOBACILLUS ACIDOPHILUS CAP (BACID) PO SCH ×2 (08:03→17:23)
[2021-01-10] MEDS: CYANOCOBALAMIN 500 MCG TAB PO SCH (08:04)
[2021-01-10] MEDS: **hydrALAZINE HCL** 25 MG TAB PO SCH ×3 (08:04→20:56)
[2021-01-10] MEDS: FERROUS SULFATE 325MG TAB PO SCH ×2 (08:04→20:54)
[2021-01-10] MEDS: CARVedilol 12.5 MG TAB PO SCH ×2 (08:05→20:55)
--- NOTE | 2021-01-10 10:28 | IPNPDOC ---
Subjective Date Seen The patient was seen on 01/10/21. Subjective Chief Complaint/HPI Mr. Vasquez is a 75 year old male with CKD stage 4 and CAD s/p CABG and stents who presents from nephrology's office for acute renal failure and hyperkalemia. This morning, his dyspepsia is better. He was able to tolerate some of his clear liquid diet. He does not feel ready for solid food, but okay with going towards full liquid diet. Objective Physical Examination General Exam: Positive: Alert, Cooperative Eye Exam: Positive: EOMI; Negative: Sclera icteric ENT Exam: Positive: Atraumatic Neck Exam: Positive: Supple Chest Exam: Positive: Clear to auscultation; Negative: Rales, Rhonchi, Wheezing Heart Exam: Positive: Rate Normal, Regular Rhythm Abdomen Exam: Positive: Normal bowel sounds, Soft; Negative: Tenderness Extremity Exam: Positive: Edema (Pitting on anterior perdomo) Neuro Exam: Positive: Normal Speech, Cranial Nerves 3-12 NL Psych Exam: Positive: Mental status NL, Mood NL Assessment /Plan Assessment Mr. Vasquez is a 75 year old male with CKD stage 4 and CAD s/p CABG and stents who presents from nephrology's office for acute renal failure, metabolic acidosis, and hyperkalemia. Unclear cause, but patient is on furosemide at home. Irbesartan may have contributed as well in addition to patient's hypertension. Nephrology consulted, recommendations appreciated. Patient had insertion of PermCath and first round of dialysis on 01/07/21. Patient will need to be set up with dialysis before discharge home. Plan/VTE VTE Prophylaxis Ordered?: Yes Plan 1. ESRD on dialysis -Previously CKD stage 4, now progressed to ESRD -Nephrology consulted, recommendations appreciated -Irbesartan and Furosemide will be held -PermCath inserted by IR 01/07. -Anticipate dialysis today 2. Hyperkalemia -Resolved with dialysis 3. NAGMA -Resolved with dialysis 4. Diabetes mellitus type 2 -Sliding scale insulin -Start Levemir at 10u qHS (due to poor appetite) and increase as needed (on Basaglar 20 at home) -Hypoglycemia protocol 5. Macrocytic anemia/Anemia of chronic disease -Secondary to ESRD -B12 level >2000 -Iron 49, Ferritin 788 6. 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 Hypertension -Holding irbesartan, minoxidil, and furosemide -IV hydralazine as needed -PO coreg -PO hydralazine and losartan 9. DVT ppx -SCD and TEDs Disposition: Pending clinical improvement and nephrology's recommendations. Patient still nauseous, but improved with clear liquid diet, PPI, and Carafate. Patient will need arrangements for outpatient hemodialysis to be set up (PFS/CM referral made) VS, I&O, 24H, Fishbone Vital Signs/I&O Vital Signs Date Time Temp Pulse Resp B/P (MAP) Pulse Ox O2 Delivery O2 Flow Rate FiO2 01/10/21 08:05 76 192/76 01/10/21 07:38 98.2 18 96 Room Air 01/07/21 11:55 2.0 I&O- Last 24 Hours up to 6 AM 01/10/21 06:00 Intake Total 680 ml Output Total 2000 ml Balance -1320 ml Laboratory Data 24H LABS Laboratory Tests 2 01/09/21 11:53: Bedside Glucose (Misc Panel) 130H 01/09/21 16:57: Bedside Glucose (Misc Panel) 100 01/09/21 20:16: Bedside Glucose (Misc Panel) 133H 01/10/21 04:41: Nucleated Red Blood Cells % (auto) 0.0, Anion Gap 6L, Glomerular Filtration Rate 13.5L, Calcium Level 8.0L, Phosphorus Level 4.0#, Albumin 2.7L CBC/BMP Laboratory Tests 01/10/21 04:41 MAGALY BOSTON DO January 10, 2021 10:28
[2021-01-10] MEDS: hydrALAZINE 20MG/ML 1ML VIAL (J0360 PER 20MG) IV PRN ×2 (10:34→17:24)
--- NOTE | 2021-01-10 12:53 | IPN ---
NEPHROLOGY PROGRESS NOTE DATE: 01/10/2021 SUBJECTIVE: Mr. Moore is seen this morning on his bedside. He is sitting in the chair today and looks much better. He feels significantly improved. He was dialyzed yesterday again, which was his third dialysis since admission. Patient reports that metallic taste in his mouth has improved and appetite has also improved. He is tolerating diet well and denies any nausea or vomiting. He has no dyspnea or chest pain at present. PHYSICAL EXAMINATION: Temperature 97.3 degrees Fahrenheit, heart rate 72 per minute, respiratory rate 18 per minute, blood pressure 158/60 mmHg, oxygen saturation 96% on room air. HEAD: Atraumatic. NECK: Supple and without jugular venous distention (JVD) or thyroid enlargement. Hemodialysis catheter in right internal jugular vein is intact. HEART SOUNDS: Regular. LUNGS: Clear to auscultation. ABDOMEN: Soft and nontender. Bowel sounds are normal. EXTREMITIES: Without any cyanosis or clubbing. NEUROLOGIC: Awake, alert and oriented times three. LABORATORY REVIEW: Today's labs show WBC 8.7, hemoglobin 8.9, hematocrit 28.9, platelets 109. Sodium 130, potassium 4.5, BUN is down to 25, creatinine 4.55, calcium 8.0, phosphorus 4.0. Albumin 2.7. PROBLEMS: 1. Uremia with advanced renal failure. Uremic symptoms have improved significantly with three dialysis treatments so far. Metallic taste has resolved and patient is feeling much better now. His next dialysis will be scheduled next week. At present, there is no emergent indication for dialysis today. 2. Hypertension. Blood pressure is improving. I started losartan 50 mg last night and will continue with the same, along with carvedilol and hydralazine. We will make further adjustments in his medication as needed. 3. Anemia. He has chronic anemia related to iron deficiency and advanced renal failure. He will be given Aranesp next week. His anemia will now be managed with hemodialysis. 4. Urinary retention. Patient has a Kohler catheter in place which is draining dark, blackish colored urine. This may be some hematuria. I will start the patient on tamsulosin and finasteride. Will leave the catheter in for a couple of more days and then consider removing before discharge. 5. Generalized weakness. Most likely related to uremia. His symptoms are improving nicely and will continue to monitor closely.
--- NOTE | 2021-01-10 13:54 | REP ---
INDICATION: right chest swelling above permcath COMPARISON: None TECHNIQUE: Axial noncontrast images from the thoracic inlet to the upper abdomen with coronal and sagittal reformations. This CT examination was performed using the following dose reduction techniques: Automated exposure control, adjustment of mA and/or kv according to the patient's size, and use of iterative reconstruction technique. FINDINGS: Small bilateral pleural effusions (right greater than left) and minimal right basilar atelectasis noted along with mild age-related generalized chronic interstitial changes. No acute consolidation, significant nodule, or mass. Very small incidental perifissural opacities likely representing scarring. No pneumothorax. Tracheobronchial tree is patent. The mediastinum demonstrates atherosclerotic changes to the thoracic aorta and coronary arteries without aortic aneurysm or cardiomegaly. No pericardial effusion. Perma-Cath is identified via the right anterior chest wall extending into the superior vena cava. The surrounding subcutaneous tissue along the insertion site appear relatively symmetric and normal. No significant swelling, fluid collection/hematoma or mass noted. Osseous structures demonstrate age-related changes without acute abnormality. Evidence for prior sternotomy. IMPRESSION: 1. Very small pleural effusions (right greater than left) with minimal right basilar atelectasis. No further significant acute mediastinal or pleuroparenchymal process. 2. PermCath via the right anterior chest wall appears normal. Surrounding subcutaneous tissues are unremarkable. <Electronically signed by Yonas West > 01/10/21 [id number]
--- NOTE | 2021-01-10 15:17 | IPN ---
NEPHROLOGY PROGRESS NOTE DATE: 01/06/2021 SUBJECTIVE: Mr. Moore is seen and examined this morning in the hemodialysis unit receiving his second dialysis treatment. He had a coude catheter placed and I note some gross hematuria to the Kohler bag. He has had no issues with his dialysis, but does report some mild nausea. PHYSICAL EXAMINATION: Temperature 98.1, pulse 91, respiratory rate 16, blood pressure 150s-170s/60s-70s, saturating 96% on room air. INTAKE AND OUTPUT: Dialysis today only removed 0. 5 kilos. Weight in the bed scale today is 83.8 kg. GENERAL: Patient is seen receiving his treatment, awake, alert, oriented, comfortable, in no apparent distress. HEENT: Extraocular muscles intact. Tongue is moist. Neck is supple. The jugular veins are not distended. The hemodialysis catheter in the right chest wall is presently in use. HEART SOUNDS: Regular S1, S2. There is trace leg edema bilaterally. LUNGS: Clear to auscultation. No crackle or rale. ABDOMEN: Soft and nontender. There are bowel sounds. GENITOURINARY: Indwelling catheter and gross hematuria to the bag. EXTREMITIES: No clubbing or cyanosis. There is trace ankle edema. NEUROLOGIC: He is awake, alert, oriented times three and at baseline mentation. LABORATORY STUDIES: Sodium 141, potassium 5.1, bicarbonate 24, BUN 68, creatinine 8.3. His iron stores returned back acceptable with transferrin saturation of 26%. Albumin 2.8. Hemoglobin 9.1, platelets 227. INPATIENT MEDICATIONS: Reviewed by myself. I note he as started on as needed Reglan. The remainder of the medications are unchanged as compared to yesterday. PROBLEMS: 1. Uremia with acute kidney injury (CHANDLER) on chronic kidney disease (CKD) stage IV. Patient has progressed to end-stage renal disease. He was started on hemodialysis on this admission. Today was his second dialysis treatment. He has been tolerating it well. He will likely have his third dialysis treatment tomorrow. He needs to be set up for an outpatient hemodialysis chair time and will eventually arteriovenous access creation. For now, he is being dialyzed via Permacath. 2. Anemia. Patient has myelodysplastic syndrome underlying. He follows with hematology for Procrit. We will start erythropoiesis stimulating agent with hemodialysis. His iron stores are acceptable with a transferrin saturation of 26% and he continues on iron supplement orally twice daily. 3. Hyperkalemia. It is resolved with dialysis. He is on a renal diet. 4. Urinary retention. Patient had a coude catheter placed. He is having gross hematuria. He has a history of benign prostatic hypertrophy (BPH). He is already on Flomax. His initial retention was just under 500 mL of urine. There was no obstructive uropathy on his renal imaging. 5. Hypertension. Blood pressures are uncontrolled, but I am not making any changes today. He just recently started dialysis and we will see how he does with the treatment and fluid removal.
[2021-01-10] MEDS ORDERED: minoxidiL 2.5 MG TAB PO ONE (18:30)
--- NOTE | 2021-01-10 19:18 | ECGEPIP ---
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
[2021-01-10] MEDS: LOSARTAN 50MG TABLET PO SCH (20:52)
[2021-01-10] MEDS: EZETIMIBE 10 MG TAB (ZETIA) PO SCH (20:52)
[2021-01-10] MEDS: minoxidiL 2.5 MG TAB PO SCH (20:53)
[2021-01-10] MEDS: FINASTERIDE 5 MG TAB PO SCH (20:56)
[2021-01-10] MEDS: LEVEMIR (INSULIN DETEMIR) 1 UNITS/0.01ML SC SCH (20:57)
[2021-01-10] MEDS: TAMSULOSIN 0.4 MG CAP PO SCH (21:03)
[2021-01-11] VITALS (7 sets, daily range): BP systolic 120–180; BP diastolic 58–70
[2021-01-11 05:32] LABS: HEMATOCRIT 29.2 % (42.0-52.0); HEMOGLOBIN 8.9 g/dl (13.5-17.5); MEAN CORPUSCULAR HEMOGLOBIN 32.6 pg (27.0-33.0); MEAN CORPUSCULAR HGB CONC 30.5 g/dl (32.0-36.5); PLATELET COUNT, AUTOMATED 118 10^3/uL (150-450); RED BLOOD COUNT 2.73 10^6/uL (4.30-6.10); WHITE BLOOD COUNT 8.1 10^3/uL (4.0-10.0)
[2021-01-11] MEDS: SUCRALFATE SUSP 1GM/10ML UD PO SCH ×4 (05:38→23:29)
[2021-01-11] MEDS: SLF 3 ML SYR IV SCH ×3 (05:39→20:33)
[2021-01-11 06:05] LABS: ALBUMIN 2.7 GM/DL (3.2-5.2); CALCIUM LEVEL 8.3 MG/DL (8.8-10.2); CREATININE FOR GFR 5.39 MG/DL (0.70-1.30); GLOMERULAR FILTRATION RATE 11.1 (>42); PHOSPHORUS LEVEL 3.8 MG/DL (2.5-4.9); POTASSIUM SERUM 4.4 MEQ/L (3.5-5.1)
[2021-01-11] MEDS: HumaLOG INSULIN (NovoLOG) PER UNIT SC SCH ×4 (07:30→20:33)
[2021-01-11] MEDS: FERROUS SULFATE 325MG TAB PO SCH ×2 (08:10→20:34)
[2021-01-11] MEDS: CARVedilol 12.5 MG TAB PO SCH ×2 (08:10→20:34)
[2021-01-11] MEDS: LACTOBACILLUS ACIDOPHILUS CAP (BACID) PO SCH ×2 (08:10→17:11)
[2021-01-11] MEDS: minoxidiL 2.5 MG TAB PO SCH ×2 (08:11→20:35)
[2021-01-11] MEDS: PANTOPRAZOLE 40MG TAB (PROTONIX) PO SCH (08:11)
[2021-01-11] MEDS: CYANOCOBALAMIN 500 MCG TAB PO SCH (08:11)
[2021-01-11] MEDS: **hydrALAZINE HCL** 25 MG TAB PO SCH ×3 (08:11→20:35)
--- NOTE | 2021-01-11 09:23 | IPNPDOC ---
Subjective Date Seen The patient was seen on 01/11/21. Subjective Chief Complaint/HPI Mr. Vasquez is a 75 year old male with CKD stage 4 and CAD s/p CABG and stents who is here for new ESRD now requiring dialysis. This morning, he is feeling better. He is tolerated a solid diet. He no longer has the metallic taste in his mouth. Objective Physical Examination General Exam: Positive: Alert, Cooperative Eye Exam: Positive: EOMI; Negative: Sclera icteric ENT Exam: Positive: Atraumatic Neck Exam: Positive: Supple Chest Exam: Positive: Clear to auscultation; Negative: Rales, Rhonchi, Wheezing Heart Exam: Positive: Rate Normal, Regular Rhythm Abdomen Exam: Positive: Normal bowel sounds, Soft; Negative: Tenderness Neuro Exam: Positive: Normal Speech, Cranial Nerves 3-12 NL Psych Exam: Positive: Mental status NL, Mood NL Assessment /Plan Assessment Mr. Vasquez is a 75 year old male with CKD stage 4 and CAD s/p CABG and stents who is here for new ESRD requiring dialysis. Nephrology consulted, recommendations appreciated. Patient had insertion of PermCath and first round of dialysis on 01/07/21. Patient will need to be set up with dialysis before discharge home. Plan/VTE VTE Prophylaxis Ordered?: Yes Plan 1. ESRD on dialysis -Previously CKD stage 4, now progressed to ESRD -Nephrology consulted, recommendations appreciated -Irbesartan and Furosemide will be held -PermCath inserted by IR 01/07. 2. Hyperkalemia -Resolved with dialysis 3. NAGMA -Resolved with dialysis 4. Diabetes mellitus type 2 -Sliding scale insulin -Start Levemir at 10u qHS (due to poor appetite) and increase as needed (on Ba saglar 20 at home) -Hypoglycemia protocol 5. Macrocytic anemia/Anemia of chronic disease -Secondary to ESRD -B12 level >2000 -Iron 49, Ferritin 788 6. 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 Hypertension -Holding irbesartan and furosemide -IV hydralazine as needed -PO coreg -PO hydralazine, losartan, and minoxidil 9. DVT ppx -SCD and TEDs Disposition: Patient has improved. Possible discharge tomorrow if outpatient hemodialysis is set up. VS, I&O, 24H, Fishbone Vital Signs/I&O Vital Signs Date Time Temp Pulse Resp B/P (MAP) Pulse Ox O2 Delivery O2 Flow Rate FiO2 01/11/21 08:10 70 178/70 01/11/21 07:20 98.4 18 95 Room Air 01/07/21 11:55 2.0 I&O- Last 24 Hours up to 6 AM 01/11/21 06:00 Intake Total 838 ml Output Total 650 ml Balance 188 ml Laboratory Data 24H LABS Laboratory Tests 2 01/10/21 11:57: Bedside Glucose (Misc Panel) 139H 01/10/21 17:02: Bedside Glucose (Misc Panel) 111H 01/10/21 20:09: Bedside Glucose (Misc Panel) 147H 01/11/21 05:02: Nucleated Red Blood Cells % (auto) 0.0, Anion Gap 6L, Glomerular Filtration Rate 11.1L, Calcium Level 8.3L, Phosphorus Level 3.8, Albumin 2.7L 01/11/21 07:10: Bedside Glucose (Misc Panel) 103 CBC/BMP Laboratory Tests 01/11/21 05:02 MAGALY BOSTON DO January 11, 2021 09:23
[2021-01-11] MEDS ORDERED: DARBEPOETIN 100 MCG/0.5 ML *DIALYSIS* SYRINGE (J0882) IV SCH (09:50)
[2021-01-11] MEDS ORDERED: MIRALAX *UNIT DOSE* 17GM PACKET PO PRN (13:45)
[2021-01-11] MEDS: DOCUSATE SODIUM 100MG CAPSULE PO SCH ×2 (13:45→20:37)
[2021-01-11] MEDS ORDERED: hydrALAZINE 20MG/ML 1ML VIAL (J0360 PER 20MG) IV PRN (13:45)
--- NOTE | 2021-01-11 17:12 | IPN ---
NEPHROLOGY PROGRESS NOTE DATE: 01/11/2021 SUBJECTIVE: Mr. Moore is seen this morning during hemodialysis. He is feeling well and reports that his appetite and the metallic taste in his mouth has improved. He has no vomiting or nausea anymore. He denies any dyspnea or chest pain. PHYSICAL EXAMINATION: Temperature 97.5 degrees Fahrenheit, heart rate 70 per minute, respiratory rate 18 per minute, blood pressure 178/70 mmHg earlier and now during dialysis it is down to 139/60 mmHg, oxygen saturation 97% on room air. HEAD: Atraumatic. NECK: Supple and without jugular venous distention (JVD) or thyroid enlargement. Dialysis catheter is present on right upper chest without any sign of infection. HEART SOUNDS: Regular. LUNGS: Clear to auscultation. ABDOMEN: Soft and nontender. Bowel sounds are normal. EXTREMITIES: Without any cyanosis or clubbing. NEUROLOGIC: He is awake, alert and oriented times three. LABORATORY DATA: Today's labs show WBC 8.1, hemoglobin 8.9, hematocrit 29.2. Sodium 137, potassium 4.4, BUN 35, creatinine 5.39, calcium 8.3, phosphorus 3.8. PROBLEMS: 1. End-stage renal disease. Patient is now dialysis dependent and he is being dialyzed today. He is tolerating dialysis very well. We will try to arrange for outpatient dialysis and he is likely to continue with long-term dialysis. 2. Hypertension. Blood pressure still somewhat high before dialysis, but has improved. His medications have been adjusted and now minoxidil has also been added in addition to losartan. We will continue to monitor his blood pressure and make further adjustments as needed. 3. Anemia. His anemia is stable and I am going to give him his first dose of Aranesp 100 mcg today during dialysis. His anemia will be managed with outpatient dialysis now. DISPOSITION: From a renal standpoint, patient is likely to be ready for discharge in the next 24 hours. We will need to make arrangements for his outpatient dialysis and I have requested [facility] to send the application. Once the application is submitted, then he can be discharged and I will be in contact with him for outpatient dialysis.
[2021-01-11] MEDS: EZETIMIBE 10 MG TAB (ZETIA) PO SCH (20:34)
[2021-01-11] MEDS: TAMSULOSIN 0.4 MG CAP PO SCH (20:34)
[2021-01-11] MEDS: FINASTERIDE 5 MG TAB PO SCH (20:35)
[2021-01-11] MEDS: LEVEMIR (INSULIN DETEMIR) 1 UNITS/0.01ML SC SCH (20:38)
[2021-01-11] MEDS ORDERED: LOSARTAN 50MG TABLET PO SCH (21:00)
[2021-01-12] VITALS: BP 121/52
[2021-01-12 04:00] VITALS: BP 122/53
[2021-01-12 05:31] LABS: HEMATOCRIT 27.9 % (42.0-52.0); HEMOGLOBIN 8.7 g/dl (13.5-17.5); MEAN CORPUSCULAR HEMOGLOBIN 33.5 pg (27.0-33.0); MEAN CORPUSCULAR HGB CONC 31.2 g/dl (32.0-36.5); MEAN CORPUSCULAR VOLUME 107.3 fl (80.0-96.0); WHITE BLOOD COUNT 6.5 10^3/uL (4.0-10.0)
[2021-01-12] MEDS: SUCRALFATE SUSP 1GM/10ML UD PO SCH ×2 (05:32→12:45)
[2021-01-12] MEDS: SLF 3 ML SYR IV SCH ×2 (05:33→14:00)
[2021-01-12 05:50] LABS: ALBUMIN 2.6 GM/DL (3.2-5.2); CALCIUM LEVEL 7.8 MG/DL (8.8-10.2); CREATININE FOR GFR 3.94 MG/DL (0.70-1.30); PHOSPHORUS LEVEL 2.4 MG/DL (2.5-4.9); POTASSIUM SERUM 4.4 MEQ/L (3.5-5.1)
[2021-01-12 05:54] LABS: PLATELET COUNT, AUTOMATED 99 10^3/uL (150-450)
[2021-01-12 08:00] VITALS: BP 178/64
[2021-01-12] MEDS: LACTOBACILLUS ACIDOPHILUS CAP (BACID) PO SCH (08:20)
[2021-01-12] MEDS: HumaLOG INSULIN (NovoLOG) PER UNIT SC SCH ×2 (08:20→12:45)
[2021-01-12] MEDS: minoxidiL 2.5 MG TAB PO SCH (08:22)
[2021-01-12] MEDS: CARVedilol 12.5 MG TAB PO SCH (08:24)
[2021-01-12] MEDS: CYANOCOBALAMIN 500 MCG TAB PO SCH (08:25)
[2021-01-12] MEDS: **hydrALAZINE HCL** 25 MG TAB PO SCH ×2 (08:25→16:35)
[2021-01-12] MEDS: PANTOPRAZOLE 40MG TAB (PROTONIX) PO SCH (08:25)
[2021-01-12] MEDS: DOCUSATE SODIUM 100MG CAPSULE PO SCH (08:25)
[2021-01-12] MEDS: FERROUS SULFATE 325MG TAB PO SCH (08:25)
[2021-01-12] MEDS ORDERED: TAMS1CAP17 PO (11:18)
[2021-01-12] MEDS ORDERED: FINA5TAB2 PO (11:18)
[2021-01-12] MEDS ORDERED: HYDR25TA PO (11:18)
[2021-01-12 12:00] VITALS: BP 134/56
--- NOTE | 2021-01-12 13:07 | IPN ---
NEPHROLOGY PROGRESS NOTE DATE: 01/12/2021 SUBJECTIVE: Mr. Moore is seen this morning on his bedside. He is sitting in the chair at the time of my visit. He is feeling much better and reports that he started to ambulate. He still has Kohler catheter which is draining clear yellow urine. Patient denies any dyspnea, chest pain, nausea or vomiting. The metallic taste in his mouth has all completely resolved and appetite has improved. He was dialyzed yesterday which he tolerated well. PHYSICAL EXAMINATION: Temperature 98.3 degrees Fahrenheit, heart rate 80 per minute and respiratory rate 16 per minute. Blood pressure earlier was 122/53 mmHg and then 178/64 mmHg. Oxygen saturation is 96% on room air. Head: Atraumatic. Neck: Supple and JVD not abnormally elevated. Dialysis catheter in the right internal jugular vein is intact. Heart: Sounds are regular. Lungs: Clear to auscultation. Abdomen: Soft and nontender and bowel sounds are normal. Extremities: Without any cyanosis or clubbing. Neurologically: He is awake, alert and oriented times 3. LABORATORY DATA: Today's labs show WBC count 6.5, hemoglobin 8.7, hematocrit 27.9 and platelets are down to 99,000. Sodium 138, potassium 4.4, BUN 21, creatinine 3.94, calcium 7.8, phosphorus 2.4. PROBLEMS/PLAN: 1. End-stage renal disease: Patient is now very well dialyzed after 4 treatments. He will continue with outpatient dialysis and I have checked with the clinic and he is scheduled for next dialysis on morning at 7:00 a.m. At this point there is no emergent need for dialysis today or tomorrow and patient can wait until . 2. Anemia: His anemia is stable and we already gave him first dose of Aranesp yesterday. This will be managed with dialysis as an outpatient. 3. Hypertension: Blood pressure seems to be reasonably well controlled. I would recommend to discharge him on his chronic home medications and I will follow up and make adjustments as needed as outpatient. 4. Urinary retention: Patient had mild retention and has had a Kohler catheter in place since admission. We will discontinue his Kohler catheter and continue with Flomax and Proscar. Patient should have a trial of void before he gets discharged. 5. Disposition: Patient can be discharged to home today and will be followed up as an outpatient.
[2021-01-12 16:00] VITALS: BP 158/60
[2021-01-12 16:35] VITALS: BP 158/60
--- NOTE | 2021-01-12 17:59 | DS.PDOC ---
Discharge Summary General Date of Admission January 06, 2021 at 16:56 Date of Discharge November 12, 2020 Specialist/Consultants [facility], Dr. Alissa Guevara and Dr. Nellie Guevara IR, Dr. Higginbotham Discharge Summary PROCEDURES PERFORMED DURING STAY: PermCath insertion on 01/07/[address] Higginbotham ADMITTING DIAGNOSES: 1. Acute renal failure on chronic kidney disease stage IV 2. Hyperkalemia 3. Metabolic acidosis 4. Diabetes mellitus type 2 5. Macrocytic anemia 6. Paroxysmal atrial fibrillation 7. WPW syndrome 8. Hypertension DISCHARGE DIAGNOSES: 1. New onset end-stage renal disease on dialysis Monday, , Monday 2. Hyperkalemia 3. Metabolic acidosis 4. Diabetes mellitus type 2 5. Macrocytic anemia 6. Paroxysmal atrial fibrillation 7. WPW syndrome 8. Hypertension COMPLICATIONS/CHIEF COMPLAINT: Acute Renal Failure, Hyperkalemia. HISTORY OF PRESENT ILLNESS: Mr. Vasquez is a 75 year old male with CKD stage 4 and CAD s/p CABG and stents who presents from nephrology's office for acute renal failure and hyperkalemia. Patient was at [facility] for cholecystitis in October, and he was discharge with levofloxacin. Otherwise, denies taking any NSAID or over the counter medication. Otherwise, his only other new medication was minoxidil. He was unsure when this medication was started. Otherwise, over the past month, he has been having increased weakness and a metallic taste in his mouth. He thought it may be due to his minoxidil. His daughter took him to his twx operator today, and he was found to have acute renal failure with potassium above 8. Patient was then urgently taken to the ED. While in the ED, repeat potassium was 7.8, bicarb 13, and creatinine 11.1. Dr. Nellie Guevara spoke with ED provider and recommended giving Kayexalate and sodium bicarbonate. Patient will most likely need dialysis at some point during this hospitalization. When I saw the patient, he denied any fever, chest pain, dyspnea, abdominal pain, or dysuria. He does feel that his urine output is less, but he is still able to produce urine. I spoke with Dr. Alissa Guevara. Recommended continuing bicarb drip for a total of 3L (1L by ED and 2L by me) and use Kayexalate for hyperkalemia. Anticipate requesting IR to place PermCath tomorrow for dialysis. Patient will be admitted for acute renal failure and hyperkalemia. HOSPITAL COURSE: The following day, Dr. Higginbotham placed permacath and patient had his first round of dialysis on 01/07/2021. He had tolerated it well, but still had nausea and a metallic taste in his mouth. Patient had dialysis on the , the , and the . After the last round of dialysis, his nausea resolved and a metallic taste was gone. He is able to tolerate a renal diet without any problems. Today, he has secured a dialysis chair at his next dialysis session will be on . Today he feels well. He denies any chest pain, shortness of breath, or abdominal pain. He cleared physical therapy. He felt ready for home and was subsequently discharged home DISCHARGE MEDICATIONS: Please see below. ALLERGIES: Please see below. PHYSICAL EXAMINATION ON DISCHARGE: VITAL SIGNS: Please see below. GENERAL: Comfortable, in no apparent distress. HEENT: Head normocephalic/atraumatic, EOMI, sclera clear. NECK: Supple. RESPIRATORY: Lungs clear to auscultation bilaterally, no rales, wheeze or rhonchi. CARDIOVASCULAR: Regular rate and rhythm. ABDOMEN: Soft, nontender, no guarding or rebound tenderness. Normal bowel sounds. MUSCLE SKELETAL: Muscle strength 5/5 in all extremities. NEUROLOGICAL: CN 312 grossly intact, no focal deficits noted. PSYCHOLOGICAL: Normal mood and affect LABORATORY DATA: Please see below. IMAGING: Radiologist interpretation Chest x-ray No active disease. Renal ultrasound Normal urinary tract sonography. CT chest without contrast 1. Very small pleural effusions (right greater than left) with minimal right basilar atelectasis. No further significant acute mediastinal or pleuroparenchymal process. 2. PermCath via the right anterior chest wall appears normal. Surrounding subcutaneous tissues are unremarkable. PROGNOSIS: Good ACTIVITY: As tolerated. DIET: Renal diet and carbohydrate consistent diet. DISCHARGE PLAN: Home with home health services DISPOSITION: Home Health Service. DISCHARGE INSTRUCTIONS: 1. Follow-up with your PCP in one week. 2. Follow-up with nephrology in one week 3. Follow-up at dialysis as scheduled 4. Measure your blood pressure twice a day and record values. Present to your PCP to help manage her blood pressure. ITEMS TO FOLLOWUP ON ON OUTPATIENT: 1. Blood pressure readings 2. Monitor for urinary retention. Patient was started on tamsulosin and finasteride DISCHARGE CONDITION: Stable. Total time spent on discharge planning, discharge summary, and medication reconciliation: 65 minutes. Vital Signs/I&Os Vital Signs Date Time Temp Pulse Resp B/P (MAP) Pulse Ox O2 Delivery O2 Flow Rate FiO2 01/12/21 16:35 158/60 01/12/21 16:00 97.5 76 16 97 Room Air 01/07/21 11:55 2.0 I&O- Last 24 Hours up to 6 AM 01/12/21 06:00 Intake Total 720 ml Output Total 1500 ml Balance -780 ml Laboratory Data Labs 24H Laboratory Tests 2 01/11/21 20:32: Bedside Glucose (Misc Panel) 118H 01/12/21 04:47: Nucleated Red Blood Cells % (auto) 0.0, Immature Platelet Fraction 7.8, Anion Gap 7L, Glomerular Filtration Rate 16.0L, Calcium Level 7.8L, Phosphorus Level 2.4#L, Albumin 2.6L 01/12/21 11:51: Bedside Glucose (Misc Panel) 159H CBC/BMP Laboratory Tests 01/12/21 04:47 FSBS Laboratory Tests Test 01/11/21 20:32 01/12/21 11:51 Range/Units Bedside Glucose (Misc Panel) 118 159 83-110 MG/DL Discharge Medications Scheduled Bacillus Coagulans/Inulin (Probiotic Formula Capsule) 1 Each Capsule, 1 CAP PO BID, (Reported) Carvedilol (Carvedilol) 25 Mg Tablet, 1 TAB PO BID, (Reported) Cholecalciferol (Vitamin D3) (Vitamin D3) 125 Mcg Tablet, 125 MCG PO DAILY, (Reported) Cyanocobalamin (Vitamin B-12) (Vitamin B-12) 500 Mcg Tab, 500 MCG PO DAILY, (Reported) Epoetin Adarsh (Procrit) 20,000 Unit/1 Ml Vial, 1 VIAL SC 2XW, (Reported) GETS BLOOD DRAWN EVERY TWO WEEKS TO CHECK LEVELS. LAST BLOOD DRAW WAS 10/07/20 Ezetimibe (Ezetimibe) 10 Mg Tablet, 10 MG PO QHS, (Reported) Ferrous Sulfate (Ferrous Sulfate) 325 Mg Tab, 325 MG PO BID, (Reported) Finasteride (Finasteride) 5 Mg Tablet, 5 MG PO QHS Hydralazine HCl (Hydralazine HCl) 25 Mg Tablet, 25 MG PO TID Insulin Glargine,Hum.rec.anlog (Basaglar Kwikpen U-100) 100 Unit/Ml Inj, 20 UNITS SC DAILY, (Reported) IF BS>110 Irbesartan (Irbesartan) 300 Mg Tablet, 300 MG PO QHS, (Reported) Minoxidil (Minoxidil) 2.5 Mg Tablet, 5 MG PO DAILY, (Reported) Minoxidil (Minoxidil) 2.5 Mg Tablet, 2.5 MG PO QHS, (Reported) Multivitamin (Multivitamins) 1 Each Tablet, 2 TAB PO DAILY, (Reported) Pantoprazole Sodium (Pantoprazole Sodium) 40 Mg Tab, 40 MG PO DAILY, (Reported) Tamsulosin Hcl (Tamsulosin HCl) 0.4 Mg Capsule, 0.4 MG PO DAILY Scheduled PRN Nitroglycerin (Nitrostat) 0.4 Mg Subl, 0.4 MG SL NITRO PRN for CHEST PAIN, (Reported) Allergies Coded Allergies: nicotine (Verified Allergy, Intermediate, hives, 10/11/20) atorvastatin (Verified Adverse Reaction, Intermediate, myalgia, 10/11/20) clopidogrel (Verified Adverse Reaction, Intermediate, rectal bleeding, 10/11/20) pioglitazone (Verified Adverse Reaction, Intermediate, myalgia, 10/11/20) rosuvastatin (Verified Adverse Reaction, Intermediate, leg cramps, 10/11/20) lactose (Verified Adverse Reaction, Mild, diarrhea, 10/11/20) heparin (Verified Adverse Reaction, Unknown, rectal bleeding, 10/11/20) MAGALY BOSTON DO Jan 12, 2021 17:58
== END 2021-01-12 17:28 | disposition home health service (06) | DRG 673 ==
LOC: M ED 14:25 → M ED INP 16:56 → ENRESERV 17:16 → M PCU 18:09
PROVIDERS: ADMIT Internal Medicine; ATTEND Internal Medicine
PROC: 02HV33Z Insertion of Infusion Device into Superior Vena Cava, Percutaneous Approach (ICD-10-PCS; 2021-01-07)
PROC: 5A1D70Z Performance of Urinary Filtration, Intermittent, Less than 6 Hours Per Day (ICD-10-PCS; 2021-01-07)
PROC: 0JH63XZ Insertion of Tunneled Vascular Access Device into Chest Subcutaneous Tissue and Fascia, Percutaneous Approach (ICD-10-PCS; principal; 2021-01-07 11:00)
DX: I12.0 Hypertensive chronic kidney disease with stage 5 chronic kidney disease or end stage renal disease (principal); N18.6 End stage renal disease; E87.2 Acidosis; N17.9 Acute kidney failure, unspecified; N25.81 Secondary hyperparathyroidism of renal origin; I48.0 Paroxysmal atrial fibrillation; D46.9 Myelodysplastic syndrome, unspecified; I45.6 Pre-excitation syndrome; E11.51 Type 2 diabetes mellitus with diabetic peripheral angiopathy without gangrene; E87.5 Hyperkalemia; D53.9 Nutritional anemia, unspecified; I25.10 Atherosclerotic heart disease of native coronary artery without angina pectoris; Z95.2 Presence of prosthetic heart valve; Z79.899 Other long term (current) drug therapy; Z79.4 Long term (current) use of insulin; Z88.8 Allergy status to other drugs, medicaments and biological substances; E73.9 Lactose intolerance, unspecified; Z79.01 Long term (current) use of anticoagulants; Z87.891 Personal history of nicotine dependence; N40.0 Benign prostatic hyperplasia without lower urinary tract symptoms; E78.5 Hyperlipidemia, unspecified; E66.9 Obesity, unspecified; J44.9 Chronic obstructive pulmonary disease, unspecified; M19.90 Unspecified osteoarthritis, unspecified site; K57.30 Diverticulosis of large intestine without perforation or abscess without bleeding; D63.1 Anemia in chronic kidney disease; R31.0 Gross hematuria; R33.9 Retention of urine, unspecified

== ENCOUNTER 2021-06-24 19:29 | Inpatient (IN) | payer MEDICARE ==
[~2021-06-24] VITALS: Ht 172.7 cm; Wt 80.6 kg
[~2021-06-24 19:29] MED LIST changes: +FINA5TAB2 PO; +HYDR25TA PO; +TAMS1CAP17 PO
--- OUTSIDE RECORDS SUMMARY | 2021-06-24 19:41 | CCD ---
Clinical Summary - [facility] Created on: 05/24/2021 Oscar Granado, Jakob Baca External Reference #: [id number] : 1945 Sex: Male Author [facility] Organization [facility] Address [address] [place] [address] Phone Care Team Providers Care Marine Farmer Name Role Phone Jakob DORSEY, Eloisa Valencia PP [phone] Post DPM, Yonas Unavailable [phone] Zaira Perry MD Unavailable [phone] Reason for Referral No Reason for Referral Recorded Reason for Visit and Chief Complaint Chart Update Problems Includes: Problems addressed during this encounter and other active Problems All Visits Onset Date - Time Resolved Date - Time Provider Co ndition Status Renal Failure 01/16/2021 - 9:11AM Carolyn L Ray DO Acti ve Note: started dialyasis , Sat on 01/07/21 Feeling Weak 12/24/2020 - 11:56AM Carolyn L Ray DO Acti ve Acute Kidney Failure Due To Tubular Necrosis 10/25/2020 - 10:47A M Carolyn L Ray DO Active Note: during hospitalization 10/11/20; secondary to sepsis from acute cholecystitis Conner Parkinson White Syndrome 10/25/2020 - 10:47AM Am fransico L Ray DO Active Note: Hx of per hospital rec ords from 10/11/20 Acute Pancreatitis Due To Gallstones 10/19/2020 - 4:58PM Carolyn L Ray DO Active Note: hospitalized 10/11/20 Clostridium Difficile 10/19/2020 - 4:59PM Carolyn L Ray DO Active Note: during hospitalization 10/11/20, Acute Cholecystitis 10/19/2020 - 4:57PM Carolyn L Ray D O Active Note: hospitalized 10/11/20; needs galbladder removed outpatient, but needs cardiac clearance first Atrial Fibrillation with Rapid Ventricular Response 10/19/2020 - 4:58PM Carolyn L Ray DO Active Note: during hospitalization 10/11/20; refusing anticoagulation due to Hx of GI bleed; aware of stroke risk Coronavirus Covid-19 Infection 09/17/2020 - 11:07AM Am fransico Patricia Ray DO Active Note: 08/22/20 ( tested po sitive, pt was sick but never got tested) Myelodysplastic Syndrome 09/09/2019 - 12:00AM Carolyn L Ray DO Active Note: patient was referred b y hematology in [place] to [facility] for treatment options, unfavorable prognosis without treatment 09/04/19 Valvular Heart Disease 05/17/2019 - 12:00AM Carolyn L R pineda DO Active Note: mild mitral and tricus pid regurg seen on ECHO 05/17/19 Congestive Heart Failure Diastolic Chronic 05/17/2019 - 12:00AM Carolyn L Ray DO Active Note: stage 3 Carotid Artery Stenosis 05/17/2019 - 12:00AM Carolyn L Ray DO Active Note: left interal carotid 7 5% stenosis; saw vascular 10/16/19 and they state this is stable Peripheral Vascular Disease 05/17/2019 - 12:00AM Amlindsay a Patricia May DO Active Note: stenosis of iliofemora l artery; cardiology referred him to Dr. Perdomo from vascular 05/17/19 Gastritis 05/14/2019 - 12:00AM Carolyn L Ray DO Acti ve Upper Gastrointestinal Bleeding 05/14/2019 - 12:00AM A ivana Gomez Ray DO Active Peptic Ulcer 05/14/2019 - 12:00AM Carolyn L Ray DO Acti ve Note: Hx of Postgastric Surgery Malabsorption 05/14/2019 - 12:00AM Carolyn L Ray DO Active Note: Hx of gastric bypass s urgery Chronic Renal Failure 05/13/2019 - 12:00AM Eloisa dee SERVICE DELIVERY MANAGEMENT CONSULTANT Active Note: stage 4, followed by n ephrology in [place]; Patient hospitalized for acute renal failure with creatine of 9.0, hyperkalemia and metabolic acidosis 01/06/21 by his senior accountant cpa. started dialyasis 01/07/21- AV fistula to be placed Diabetic Nephropathy 05/13/2019 - 12:00AM Carolyn L Ray DO Active Benign Prostatic Hypertrophy Without Urinary Obstruction 016 - 12:00AM Carolyn L Ray DO Active Note: renal sono from 10/13/20 shows marked enlargement of prostate gland causing mass effect on bladder Chronic Obstructive Pulmonary Disease 04/01/2015 - 12:00AM Fabian Johnson MD Active Male Erectile Disorder 12/12/2012 - 12:00AM Carolyn L R ay DO Active Note: Unchanged Diabetes Mellitus Diabetic Peripheral Neuropathy 07/20/2012 - 12 :00AM Carolyn L Ray DO Active Note: Unchanged - s/p left 1 st toe amputation Anemia 05/20/2011 - 12:00AM Carolyn L Ray DO Acti ve Note: Unchanged - of chronic disease per hematology records (could also be due to iron def from malabsorption and chronic renal failure); OV note 08/19/19 pt being worked up for myelodysplasia Vitamin D Deficiency 02/25/2010 - 12:00AM Fabian kelly MD Active Osteoarthritis Hip 07/24/2009 - 12:00AM Fabian Johnson MD Active Note: Worsening Coronary Artery Disease 12/14/2007 - 12:00AM Carolyn L Ray DO Active Note: Well-Controlled - s/p CABG x 12 February 2013 Hypertension (Systemic) 12/14/2007 - 12:00AM Carolyn L Ray DO Active Note: Well-Controlled Hyperlipidemia 12/14/2007 - 12:00AM Carolyn L Ray DO Ac tive Note: Unchanged - unable to tolerate the statins Obesity 12/14/2007 - 12:00AM Fabian Johnson MD Act mirna Note: Unchanged Diabetes Mellitus 10/12/1994 - 12:00AM Carolyn L Ray DO Active Note: Stable Plan of Treatment Future Appointments Date Time Location Provider [facility] 10/18/2021 10:20AM [facility] Eloisa barney NP Assessments Includes: Assessments from this encounterNo Assessments Recorded Instructions Includes: Instructions from this encounterNo Instructions Recorded Medical Equipment - Implanted Devices Includes: Current DevicesNo Medical Equipment Recorded Medications Includes: Medications discussed during this encounter and other current Medicati ons Current Medications (continue as prescribed) OneTouch Delica Lancets 30G Miscellaneous 04/26/2021 - 10/23 Provider: Eloisa A [place] SERVICE DELIVERY MANAGEMENT CONSULTANT Diagnosis: Type 2 diabetes johnathan itus with diabetic neuropathy, unsp Use to test blood glucose three times a day. Dispense per in surance. OneTouch Ultra In Vitro Strip 04/26/2021 - 10/23/2021 Provid er: Eloisa Robert NP Diagnosis: Type 2 diabetes johnathan itus with diabetic neuropathy, unsp Use to test blood glucose three times a day. Dispense per in surance. OneTouch Ultra Mini w/Device Kit 04/26/2021 - 05/26/2021 Pro vider: Eloisa Robert SERVICE DELIVERY MANAGEMENT CONSULTANT Diagnosis: Type 2 diabetes johnathan itus with diabetic neuropathy, unsp Use to test blood glucose three times a day. Dispense per in surance. Basaglar KwikPen 100 UNIT/ML Subcutaneous Solution Pen-injec tor 04/26/2021 Provider: Eloisa Robert NP Diagnosis: Diabetes due to unde rlying condition w unsp complications as directed; 20U once daily Carvedilol 25 MG Oral Tablet 03/01/2021 - 08/28/2021 Provide r: Eloisa Robert SERVICE DELIVERY MANAGEMENT CONSULTANT Diagnosis: Essential (primary) hypertension twice a day 1 tab po bid per cardiology Ezetimibe 10 MG Oral Tablet 01/29/2021 - 07/28/2021 Provider : Carolyn May DO Diagnosis: once a day Epoetin Adarsh 37339 UNIT/ML Injection Solution 01/16/2021 Provider: Diagnosis: injection twice weekly Daily Value Multivitamin Oral Tablet 01/16/2021 Pro vider: Diagnosis: Tamsulosin HCl 0.4 MG Oral Capsule 01/12/2021 Provi [place]: Diagnosis: Saccharomyces boulardii 250 MG Oral Capsule 10/19/2020 Provider: Diagnosis: Irbesartan 300 MG Oral Tablet 10/19/2020 Provider: Diagnosis: Pantoprazole Sodium 40 MG Oral Tablet Delayed Release 2020 Provider: Carolyn May DO Diagnosis: Esophagitis, unspeci fied once a day Minoxidil 2.5 MG Oral Tablet 07/24/2020 Provider: Diagnosis: 2 tabs QAM and 1 QPM per nephrology Iron 325 (65 Fe) MG Oral Tablet 03/24/2020 Provider : Diagnosis: BID HM Vitamin B12 500 MCG Oral Tablet 03/24/2020 Provi [place]: Diagnosis: Pen [place] 12/27" 31G X 8 MM Miscellaneous 03/18/2020 Provider: Eloisa Robert NP Diagnosis: Type 2 diabetes johnathan itus without complications as directed uad for up to qid insulin injection HM Vitamin D3 4000 UNIT Capsule, conventional 09/12/2014 Provider: Fabian Johnson MD Diagnosis: Dm Without Complicat ion Type II or Unspecified Type Not Stat once a day Past Medications on file Nitrostat 0.4 MG Sublingual Tablet Sublingual 11/16/2020 - 1 Provider: Eloisa Robert NP Diagnosis: Athscl heart disease of zuni coronary artery w/o ang pctrs as directed Medications Administered Includes: Administered Medications from this encounterNo Administered Medications Recorded Vital Signs Includes: Vital Signs from this encounterNo Vital Signs Recorded For Specified Dates Results Includes: Results discussed during this encounterNo Results Recorded For Specified Dates History of Present Illness Includes: History of Present Illness from this encounterNo History of Present Illness Recorded Social History Description Last Updated Alcohol use Denies alcohol consumption 12/24/2018 Caffeine use 2- 16 oz sodas daily, tea 12/24/2018 Educational level high school graduate 12/24/2018 Sexually active 12/24/2018 Smoking Status Unknown Procedures and Surgical History Surgical History Last Updated History of cardiovascular surgery Double bypass February 2013 06/21/2019 History of Gastric bypass (Gage-en-Y) distal gastrecto my, laparoscopic 05/14/2019 History of left foot amputation at the I P joint of the first toe secondary to infection 05/13/2019 Medical History Includes: Medical History addressed during this encounter Description Last Updated History of hemodialysis accessed by an a rteriovenous fistula in the left arm 03/19/2021 -Dr Perdomo 05/24/2021 History of Permcath peritoneal dialysis catheter 202001/16/2021 Therapy noncompliance due to lack of comprehension History of anemia 12/24/2018 History of cellulitis 12/24/2018 History of coronary artery disease has 6 stents 12/24 History of diabetes mellitus 12/24/2018 History of essential hypertension 12/24/2018 History of hyperlipidemia 12/24/2018 History of prior myocardial infarction 12/24/2018 History of Rectal bleeding 12/24/2018 History of type 2 diabetes mellitus 12/24/2018 Colonoscopy (fiberoptic) was performed 11/14/201311/29 Family History Includes: Family History addressed during this encounter Description Last Updated Family history of malignant pancreatic neoplasm broth er 06/21/2019 Maternal history of chronic liver disease 05/14/2019 Family history of diabetes mellitus mother and father 12/24/2018 Family history of heart disease mother and father, dalia billy 12/24/2018 Family history of hypertension siblings, mother and f ather 12/24/2018 Review of Systems Includes: Review of Systems from this encounterNo Review of Systems Recorded Mental Status Includes: Mental Status from this encounterNo Mental Status Recorded Functional Status Includes: Functional Status from this encounterNo Functional Status Recorded Physical Exam Includes: Physical Exam from this encounterNo Physical Exam Recorded Immunizations Includes: Immunizations addressed during this encounterNo Immunizations Recorded Allergies Includes: Active Allergies Substance Type Reaction Onset Date - Time Resolved Date - Ti me Status Plavix Allergy bleeding 06/06/2013 - 12:00AM Acti ve Note: reoccurring rectal ble eding- required transfusions both times he was put on this once after stents and once after open heart surgery. Lipitor Allergy cramps 07/13/2007 - 12:00AM Acti ve Heparins Allergy 03/10/2017 - 12:00AM Acti ve Note: bleeding occurs Crestor Allergy cramps 02/12/2014 - 12:00AM Acti ve Aspirin Allergy bleeding 05/17/2019 - 12:00AM Acti ve Actos Allergy cramps 07/13/2007 - 12:00AM Acti ve Encounters Encounter Provider Location Date Check-In Time Check-Out Time D iagnosis Chart Update Eloisa Robert NP 05/24/2021 7:51AM 11:59PM Insurance Includes: Active Insurance Policies Plan Name Member ID Group # Subscriber Relationship Effective Da jemma 1 - [employer] [id number] Jakob Moore Jr Self 11/13/2011 - Unknown 2 - [employer] [id number] Jakob Moore Jr Self 08/14/2014 - Unknown 3 - [employer] [id number] OscarMaria EstherRosario 01/12/2013 - Unknown Advance Directives Includes: Current Advance Directives Directive Pat Aware Third Constitution Party Effective Date Reviewed Status RHIO Yes 03/12/2012 Current and Ve rified Note: 03/09/12 Ebola Screening Performed Yes 02/28/2020 Current and Verified Note: Within the last month, have you traveled outside of the [place]? - NO packet given Pt Bill of Rights, Priv Prac, Ad Dir Yes 04/26/2021 Current and Verified Note: Pt declined AD packet Health Concerns Includes: Health Concerns for current assessmentsNo Active Health Concerns Recorded Goals Includes: Active Goals for current assessmentsNo Active Goals Recorded Interventions Includes: Interventions for current assessmentsNo Interventions Recorded Evaluations & Outcomes Includes: Evaluations & Outcomes for current assessmentsNo Outcomes Recorded
--- OUTSIDE RECORDS SUMMARY | 2021-06-24 19:41 | CCD | Continuity of Care Document ---
Author Author Jakob PIKE M.D. Organization Unknown Address [address] [place] [address] Phone [phone] Care Team Providers Care Concrete Boom Pump Operator Name Role Phone Durga De Leon M.D. AUTM [phone] Len Kelsey M.D. AUTM [phone] Eloisa Robert N.P. AUTM [phone] Problems Active Problems Provider Date Coronary arteriosclerosis Slava Pike M.D. Onset: 2015 Essential hypertension Slava Pike M.D. Onset: 6 Chronic obstructive lung disease Slava Pike M.D. Onset: 09/10/2015 Carotid artery occlusion Slava Pike M.D. Onset: 016 Acute myocardial infarction Slava Pike M.D. Onset: 08/15 Pure hypercholesterolemia Slava Pike M.D. Onset: 2015 [id number] renal failure Onset: Arteriosclerosis of coronary artery bypass graft Onset: 10/11/2020 Chronic diastolic heart failure Onset: 0 10/11/2020 Essential hypertension Onset: 07/04/2016 Gallstone acute pancreatitis Onset: 09/15 Gastroesophageal reflux disease Onset: 0 10/11/2020 History of bypass of stomach Onset: 06/15 Hyperlipidemia Onset: 10/11/2020 Insulin treated type 2 diabetes mellitus Onset: 10/11/2020 Obesity Onset: 06/09/2016 Osteoarthritis Onset: 06/20/2018 Usirt-Taereigtv-Zepik pattern Onset: Social History Type Date Description Comments Sex Unknown ETOH Use 10/16/2019 Denies alcohol use Tobacco Use Start: Unknown End: Patient is a former smoker Smoking Status Reviewed: 04/21/21 Patient is a former smoker Allergies, Adverse Reactions, Alerts Active Allergies Reaction Severity Comments Date Lipitor leg cramps 09/10/2015 Actos leg cramps 09/10/2015 Aspirin 02/04/2021 Plavix Gi Bleeding 09/10/2015 Clopidogrel Bisulfate 2020 Crestor cramps 02/04/2021 Heparin 02/04/2021 Lactose 02/04/2021 Lactulose 02/04/2021 Medications Active Medications SIG Qnty Indications Ordering Provide r Date Trazodone HCL 50mg Tablets one by mouth every night at bedtime 30tabs Nellie Guevara M.D. 01/22 Sucralfate 1gm Tablets 1 tab x four times a day 360tabs Nellie Guevara M.D. 01/13/2021 Procrit 19332Zwei/ML Solution inject 1.5 milliliters sq every other week. 3units Nellie Guevara M.D. 01/06/2021 Probiotic Daily Capsules 1 by mouth twice daily 30caps Nellie Guevara M.D. 01/06/2021 Furosemide 20mg Tablets Take 1 Tablet By Mouth Every Day 90tabs Nellie Guevara M.D. 09/25/2019 Minoxidil 2.5mg Tablets take 1 tab bid, take 1 additional tab if needed 270tabs Nellie Guevara M .D. 09/11/2019 Lantus 100Unit/ML Solution Inject 30 Units into the skin nightly Unknown Vitamin B-12 1000mcg Tablets Take 1,000 mcg by mouth daily Unknown Carvedilol 25mg Tablets 1 by mouth twice a day Unknown Irbesartan 300mg Tablets take one tablet by mouth once every day Unknown 00 Hydralazine HCL 25mg Tablets 1 by mouth three times per day Unknown Ascorbic Acid 500mg Tablets 1 by mouth every day Unknown Ezetimibe 10mg Tablets 1 by mouth every day Unknown Ferrous Sulfate 325mg Tablets 1 by mouth bid Unknown Pantoprazole Sodium 40mg Tablets D R 1 by mouth every day 30tabs Unknown Nitrostat 0.4mg Tablets Sub use 1 s/l as needed for chest pain. Unknown 0 Caltrate 600+D3 Soft [id number]-Txsc Chewtabs once daily Unknown Calcium 600+D3 [id number] Tabl ets Take 1 tablet by mouth daily Unknown 00 Nitroglycerin 0.4mg Tablets Sub Place 0.4 mg under the tongue every 5 (five) minutes as needed for Chest pain Unknown Bufferin Low Dose 81mg Tablets Take 81 mg by mouth daily Unknown Epogen as directed Unknown Fluticasone Propionate 50mcg/Act Suspension 2 sprays in each nostril every day Unknow n Basaglar Kwikpen 100 Unit/ML Solution Pen-Inject 30-40 units daily Unknown Losartan Potassium/Hydrochlorothiazide 50-12.5mg Tablets 1 tablet qd Unknown Vitamin C 500mg Capsules ever y day Unknown Multivitamin Adult Tablets q d Unknown Vitamin B-12 500mcg Tablets 1 by mouth every day Unknown Vitamin D3 5000Unit Capsules 1 by mouth every day Unknown Proair HFA 108(90Base) mcg/Act Aer osol as needed Fabian Johnson M.D. Immunizations Description No Information Available Vital Signs Date Vital Result Comment 04/21/2021 9:41am Body Temperature 95.9 F 02/24/2021 9:47am BP Systolic Left Arm 190 mmHg BP Diastolic Left Arm 90 mmHg Heart Rate 78 /min Body Temperature 96.8 F Height 68 inches 5'8" Weight 183.00 lb Weight 83.009 kg BMI (Body Mass Index) 27.8 kg/m2 Results Test Acquired Date Facility Test Result H/L Range Note Xray 02/01/2021 Main Office [phone] Carotid Ultrasound Bilateral <pending> Procedures Date Code Description Status 04/09/2021 95769 Anastomosis Arteriovenous Direct Any Site Completed 02/01/2021 35288 Duplex Scan Extracranial Arterie s, Complete Bilateral Study Completed Medical Devices Description No Information Available Encounters Type Date Location Provider Dx Diagnosis Office Visit 04/21/2021 10:00a Main Office DYAN Villegas N18.6 End stage renal disease I77.0 Arteriovenous fistula, acqui red Z48.812 Encntr for surgical aftcr fo llowing surgery on the circ sys Office Visit 02/24/2021 9:45a Main Office Slava Pike M.D. N18.6 End stage renal disease Assessments Date Code Description Provider 04/21/2021 N18.6 End stage renal disease DYAN Villegas 04/21/2021 I77.0 Arteriovenous fistula, acquired DYAN Villegas 04/21/2021 Z48.812 Encounter for surgic al aftercare following surgery on the circulatory system DYAN Villegas 04/09/2021 N18.6 End stage renal disease Slava Pike M.D. 02/24/2021 N18.6 End stage renal disease Slava Pike M.D. 02/01/2021 I65.23 Occlusion and stenosis of bilate ral carotid arteries Slava Pike M.D. 02/01/2021 I65.23 Occlusion and stenosis of bilate ral carotid arteries Vascular Lab Plan of Treatment Future Appointment(s):* 08/16/2021 11:00 am - Vascular Lab at Main Office 04/21/2021 - DYAN Villegas* N18.6 End stage renal disease * I77.0 Arteriovenous fistula, acquired * Z48.812 Encntr for surgical aftcr following surgery on the circ sys * * Follow up:* 3 month OV with LS Functional Status Description No Information Available Mental Status Description No Information Available Referrals Description No Information Available
--- OUTSIDE RECORDS SUMMARY | 2021-06-24 19:41 | CCD ---
Clinical [facility] - [facility] Created on: 04/16/2021 Jakob Moore Jr External Reference #: [id number] : 1945 Sex: Male Author Author [facility] Organization [facility] Address [address] [place] [address] Phone Care Team Providers Care Supervisor Liquefaction Name Role Phone Post DPM, Yonas Unavailable [phone] Ray DOCarolyn PP [phone] Zaira Perry MD Unavailable [phone] Reason for Referral No Reason for Referral Recorded Reason for Visit and Chief Complaint Chart Update Problems Includes: Problems addressed during this encounter and other active Problems All Visits Onset Date - Time Resolved Date - Time Provider Co ndition Status Renal Failure 01/16/2021 - 9:11AM Carolyn L Ray DO Acti ve Note: started dialyasis , , Sat on 01/07/21 Feeling Weak 12/24/2020 - 11:56AM Carolyn L Ray DO Acti ve Acute Kidney Failure Due To Tubular Necrosis 10/25/2020 - 10:47A M Carolyn L Ray DO Active Note: during hospitalization 10/11/20; secondary to sepsis from acute cholecystitis Conner Parkinson White Syndrome 10/25/2020 - 10:47AM Am fransico L Ray DO Active Note: Hx of per hospital rec ords from 10/11/20 Clostridium Difficile 10/19/2020 - 4:59PM Carolyn L Ray DO Active Note: during hospitalization 10/11/20, Acute Pancreatitis Due To Gallstones 10/19/2020 - 4:58PM Carolyn L Ray DO Active Note: hospitalized 10/11/20 Acute Cholecystitis 10/19/2020 - 4:57PM Carolyn L [...] patient was referred b y hematology in [place] to [facility] cancer blunt for treatment options, unfavorable prognosis without treatment 09/04/19 Congestive Heart Failure Diastolic Chronic 05/17/2019 - 12:00AM Carolyn L Ray DO Active Note: stage 3 Carotid Artery Stenosis 05/17/2019 - 12:00AM Carolyn L Ray DO Active Note: left interal carotid 7 5% stenosis; saw vascular 10/16/19 and they state this is stable Peripheral Vascular Disease 05/17/2019 - 12:00AM Ammarilia May DO Active Note: stenosis of iliofemora l artery; cardiology referred him to Dr. Perdomo from vascular 05/17/19 Valvular Heart Disease 05/17/2019 - 12:00AM Carolyn L R pineda DO Active Note: mild mitral and tricus pid regurg seen on ECHO 05/17/19 Gastritis 05/14/2019 - 12:00AM Carolyn L Ray DO Acti ve Upper Gastrointestinal Bleeding 05/14/2019 - 12:00AM Erik May DO Active Peptic Ulcer 05/14/2019 - 12:00AM Carolyn L Ray DO Acti ve Note: Hx of Postgastric Surgery Malabsorption 05/14/2019 - 12:00AM Carolyn L Ray DO Active Note: Hx of gastric bypass s urgery Chronic Renal Failure 05/13/2019 - 12:00AM Eloisa dee FINANCIAL SERVICES DIRECTOR Active Note: stage 4, followed by n ephrology in [place]; Patient hospitalized for acute renal failure with creatine of 9.0, hyperkalemia and metabolic acidosis 01/06/21 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 started dialyasis 01/07/21- AV fistula to be [...] Treatment Future Appointments Date Time Location Provider Chronic Disease Follow-up 04/26/2021 9:50AM [facility] Eloisa Robert FINANCIAL SERVICES DIRECTOR Assessments Includes: Assessments from this encounterNo Assessments Recorded Instructions Includes: Instructions from this encounterNo Instructions Recorded Medical Equipment - Implanted Devices Includes: Current DevicesNo Medical Equipment Recorded Medications Includes: Medications discussed during this encounter and other current Medicati ons Current Medications (continue as prescribed) Carvedilol 25 MG Oral Tablet 03/01/2021 - 08/28/2021 Provide r: Eloisa Robert FINANCIAL SERVICES DIRECTOR Diagnosis: Essential (primary) hypertension twice a day 1 tab po bid per cardiology Ezetimibe 10 MG Oral Tablet 01/29/2021 - 07/28/2021 Provider : Carolyn May DO Diagnosis: once a day Epoetin Adarsh 29267 UNIT/ML Injection Solution 01/16/2021 Provider: Diagnosis: injection twice weekly Finasteride 5 MG Oral Tablet 01/16/2021 Provider: Diagnosis: Daily Value Multivitamin Oral Tablet 01/16/2021 Pro vider: Diagnosis: Tamsulosin HCl 0.4 MG Oral Capsule 01/12/2021 [facility] [place]: Diagnosis: Basaglar KwikPen 100 UNIT/ML Subcutaneous Solution Pen-injec tor 12/24/2020 Provider: Carolyn May DO Diagnosis: Diabetes due to unde rlying condition w unsp complications as directed; 20U once daily Nitrostat 0.4 MG Sublingual Tablet Sublingual 11/16/2020 - 1 Provider: Eloisa Robert NP Diagnosis: Athscl heart disease of [place] coronary artery w/o ang pctrs as directed Saccharomyces boulardii 250 MG Oral Capsule 10/19/2020 Provider: Diagnosis: Irbesartan 300 MG Oral Tablet 10/19/2020 Provider: Diagnosis: hydrALAZINE HCl 25 MG Oral Tablet 10/19/2020 Provid er: Diagnosis: Pantoprazole Sodium 40 MG Oral Tablet Delayed Release 2020 Provider: Carolyn May DO Diagnosis: Esophagitis, unspeci fied once a day OneTouch Ultra In Vitro Strip 08/28/2020 Provider: Carolyn May DO Diagnosis: Type 2 diabetes johnathan itus with diabetic neuropathy, unsp test blood glucose TID DISPENSE STRIPS INS COVERS Minoxidil 2.5 MG Oral Tablet 07/24/2020 Provider: Diagnosis: 2 tabs QAM and 1 QPM per nephrology Dacogen 50 MG Intravenous Solution Reconstituted 07/22/2020 Provider: Diagnosis: Q4wk per hematology Flintstones Gummies Oral Tablet Chewable 03/24/2020 Provider: Diagnosis: HM Vitamin B12 500 MCG Oral Tablet 03/24/2020 [facility] [place]: Diagnosis: Iron 325 (65 Fe) MG Oral Tablet 03/24/2020 Provider : Diagnosis: BID Pen [place] 16" 31G X 8 MM Miscellaneous 03/18/2020 Provider: Eloisa Robert NP Diagnosis: Type 2 diabetes johnathan itus without complications as directed uad for up to qid insulin injection Accu-Chek Multiclix Lancets Miscellaneous 03/18/2020 Provider: Eloisa Robert NP Diagnosis: Type 2 diabetes johnathan itus without complications twice a day OneTouch Ultra Blue In Vitro Strip 06/21/2019 [facility] [place]: Carolyn May DO Diagnosis: Type 2 diabetes johnathan itus without complications test as directed tid as needed Nystatin [id number]/GM External Powder 01/10/2019 P roravinder: Fabian Johnson MD Diagnosis: twice a day to skin rash prn yeast symptoms ProAir HFA 108 (90 Base) MCG/ACT Aerosol Solution 05/29/2015 Provider: Fabian Johnson MD Diagnosis: Chronic obstructive pulmonary disease, unspecified 1 every 4 - 6 hours as needed prn HM Vitamin D3 4000 UNIT Capsule, conventional 09/12/2014 Provider: Fabian Johnson MD Diagnosis: Dm Without Complicat ion Type II or Unspecified Type Not Stat once a day Medications Administered Includes: Administered Medications from this [...] this encounter Description Last Updated History of Permcath peritoneal dialysis catheter 202001/16/2021 [...] history of heart disease mother and father, si wenceslao 12/24/2018 Family history of hypertension siblings, mother [...] D iagnosis Chart Update Eloisa Robert NP 04/16/2021 8:58PM 11:59PM Insurance Includes: Active Insurance Policies Plan Name Member ID Group # Subscriber Relationship Effective Da jemma 1 - [employer] [id number] Jakob Moore Jr Self 11/13/2011 - Unknown 2 - [employer] [id number] Jakob Moore Jr Self 08/14/2014 - Unknown 3 - [employer] [id number] Rosario Moore 01/12/2013 - Unknown Advance Directives Includes: Current Advance Directives Directive Pat Aware Third Republican Effective Date Reviewed Status RHIO Yes 03/12/2012 Current and Ve rified Note: 03/09/12 packet given Pt Bill of Rights, Priv Prac, Ad Dir Yes 02/28/2020 Current and Verified Note: Pt declined AD packet Ebola Screening Performed Yes 02/28/2020 Current and Verified Note: Within the last month, have you traveled outside of the [place]? - NO Health Concerns Includes: Health Concerns for current assessmentsNo Active Health Concerns Recorded Goals Includes: Active Goals for current assessmentsNo Active Goals Recorded Interventions Includes: Interventions for current assessmentsNo Interventions Recorded Evaluations & Outcomes Includes: Evaluations & Outcomes for current assessmentsNo Outcomes Recorded
--- OUTSIDE RECORDS SUMMARY | 2021-06-24 19:41 | CCD ---
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 Name Role Phone Post DPSanchez, Yonas Unavailable [phone] Carolyn May DO PP [phone] Zaira Perry MD Unavailable [phone] Reason for Referral Date Encounter Description Provider Reason for Referral 04/26/21 Eloisa Robert NP Request Consul tation By Specialist Reason for Visit and Chief Complaint visit for: diabetic foot exam, visit for: screening for diabetes mellitus - The Chief Complaint is: pt presents today for chronic disease f/u mpelow 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 Problems Includes: Problems addressed during this encounter and other active Problems Current Visit Onset Date - Time Resolved Date - Time Provider C ondition Status Myelodysplastic Syndrome 09/09/2019 - 12:00AM Carolyn May DO Active Note: patient was referred b y hematology in [place] to [facility] for treatment options, unfavorable prognosis without treatment 09/04/19 Congestive Heart Failure Diastolic Chronic 05/17/2019 - 12:00AM Carolyn May DO Active Note: stage 3 Valvular Heart Disease 05/17/2019 - 12:00AM Carolyn sung DO Active Note: mild mitral and tricus pid regurg seen on ECHO 05/17/19 Chronic Renal Failure 05/13/2019 - 12:00AM Eloisa dee NP Active Note: stage 4, followed by n ephrology in [place]; Patient hospitalized for acute renal failure with creatine of 9.0, hyperkalemia and metabolic acidosis 01/06/21 by 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 started dialyasis 01/07/21- AV fistula to be placed Diabetes Mellitus Diabetic Peripheral Neuropathy 07/20/2012 - 12 :00AM Carolyn L Ray DO Active Note: Unchanged - s/p left 1 st toe amputation Coronary Artery Disease 12/14/2007 - 12:00AM Carolyn L Ray DO Active Note: Well-Controlled - s/p CABG x 12 February 2013 Hypertension (Systemic) 12/14/2007 - 12:00AM Carolyn L Ray DO Active Note: Well-Controlled Hyperlipidemia 12/14/2007 - 12:00AM Carolyn L Ray DO Ac tive Note: Unchanged - unable to tolerate the statins Past Visits Onset Date - Time Resolved Date - Time Provider Co ndition Status Renal Failure 01/16/2021 - 9:11AM Carolyn L Ray DO Acti ve Note: started dialyasis Kristen , Luis, Sat on 01/07/21 Feeling Weak 12/24/2020 - [...] Covid-19 Infection 09/17/2020 - 11:07AM Am fransico L Ray DO Active Note: 08/22/20 ( tested po sitive, pt was sick but never got tested) Carotid Artery Stenosis 05/17/2019 - 12:00AM Carolyn L Ray DO Active Note: left interal carotid 7 5% stenosis; saw vascular 10/16/19 and they state this is stable Peripheral Vascular Disease 05/17/2019 - 12:00AM Amand a L Ray DO Active Note: stenosis of iliofemora l artery; cardiology referred him to Dr. Perdomo from vascular 05/17/19 Gastritis 05/14/2019 - 12:00AM Carolyn L Ray DO Acti ve Upper Gastrointestinal Bleeding 05/14/2019 - 12:00AM A ivana L Ray DO Active Peptic Ulcer 05/14/2019 - 12:00AM Carolyn L Ray DO Acti ve Note: Hx of Postgastric Surgery Malabsorption 05/14/2019 - 12:00AM Carolyn L Ray DO Active Note: Hx of gastric bypass s urgery Diabetic Nephropathy 05/13/2019 - 12:00AM Carolyn L Ray DO Active Benign Prostatic Hypertrophy Without Urinary Obstruction - 12:00AM Carolyn L Ray DO Active Note: renal sono from 10/13/20 shows marked enlargement of prostate gland causing mass effect on bladder Chronic Obstructive Pulmonary Disease 04/01/2015 - 12:00AM Fabian Johnson MD Active Male Erectile Disorder 12/12/2012 - 12:00AM Carolyn L R ay DO Active Note: Unchanged Anemia 05/20/2011 - 12:00AM Carolyn L Ray DO Acti ve Note: Unchanged - of chronic disease per hematology records (could also be due to iron def from malabsorption and chronic renal failure); OV note 08/19/19 pt being worked up for myelodysplasia Vitamin D Deficiency 02/25/2010 - 12:00AM Fabian kelly MD Active Osteoarthritis Hip 07/24/2009 - 12:00AM Fabian Johnson MD Active Note: Worsening Obesity 12/14/2007 - 12:00AM Fabian Johnson MD Act mirna Note: Unchanged Diabetes Mellitus 10/12/1994 - 12:00AM Carolyn L Ray DO Active Note: Stable Plan of Treatment Future Appointments Date Time Location Provider AHR 10/18/2021 10:20AM [facility] Eloisa barney NP Future Tests Order Diagnosis Results Due Ordering Provid er Records Vascular Chronic kidney disease, unspecified 04/26 Eloisa Robert [employer]ANT Records Nephrology Chronic kidney disease, unspecified 04/26 Eloisa Robert [employer] - Return to the clinic if condition worsens or new symptoms arise Assessments Includes: Assessments from this encounter - [Atherosclerotic heart disease of [place] coronary artery without angina pectoris] Coronary artery disease - [Chronic diastolic (congestive) heart failure] Chronic diastolic congestive heart failure - Valvular heart disease - [Essential (primary) hypertension] Hyp ertension - [Chronic kidney disease, unspecified] Chronic renal failure - [Mixed hyperlipidemia] Hyperlipidemia - [Type 2 diabetes mellitus with diabeti c neuropathy, unspecified] Diabetic peripheral neuropathy - [Myelodysplastic syndrome, unspecified ] Myelodysplastic syndrome Pt to continue to follow with specialists as scheduled. Ensure going to dialysis appointments as scheduled. Discussed episodes of dizziness, advised to call the office with any increase in episodes or unrelated to dialysis. Will request records including labs and recent fistula procedure. Pt reports recent diabetic eye exam, he is scheduled in the near future for cataract surgery. Will request records. HgA1C 6.2 today, this is increased since last A1c, discussed reducing carbohydrate intake and regular physical activity. Tdap administered today in the office. Pt advised to call with any questions, concerns or other issues. > 30 minutes spent face to face and with coordination of care. Instructions Includes: Instructions from this encounter Instructions to patient Return to the clinic if condition worsen s or new symptoms arise Education and Decision Aids were provide d during visit for: Discussed nutritional needs Discussed concerns about exercise Medical Equipment - Implanted Devices Includes: Current DevicesNo Medical Equipment Recorded Medications Includes: Medications discussed during this encounter and other current Medicati ons Discontinued / Stopped on this date on 01/16/2021 Finasteride 5 MG Oral Tablet Provider: Diagnosis: hydrALAZINE HCl 25 MG Oral Tablet Provid er: Diagnosis: Dacogen 50 MG Intravenous Solution Reconstituted Provider: Diagnosis: Flintstones Gummies Oral Tablet Chewable Provider: Diagnosis: Nystatin [id number]/GM External Powder P rovider: Fabian Johnson MD Diagnosis: ProAir HFA 108 (90 Base) MCG/ACT Aerosol Solution Provider: Fabian Johnson MD Diagnosis: Chronic obstructive pulmonary disease, unspecified Current Medications (continue as prescribed) Carvedilol 25 MG Oral Tablet 03/01/2021 - 08/28/2021 Provide r: Eloisa Robert [employer]SULTANT Diagnosis: Essential (primary) hypertension twice a day 1 tab po bid per cardiology Ezetimibe 10 MG Oral Tablet 01/29/2021 - 07/28/2021 Provider : Carolyn May DO Diagnosis: once a day Daily Value Multivitamin Oral Tablet 01/16/2021 Pro vider: Diagnosis: Epoetin Adarsh 78139 UNIT/ML Injection Solution 01/16/2021 Provider: Diagnosis: injection twice weekly Tamsulosin HCl 0.4 MG Oral Capsule 01/12/2021 Provi [place]: Diagnosis: Basaglar KwikPen 100 UNIT/ML Subcutaneous Solution Pen-injec tor 12/24/2020 Provider: Carolyn May DO Diagnosis: Diabetes due to unde rlying condition w unsp complications as directed; 20U once daily Nitrostat 0.4 MG Sublingual Tablet Sublingual 11/16/2020 - 1 Provider: Eloisa Robert NP Diagnosis: Athscl heart disease of paimi[place] coronary artery w/o ang pctrs as directed [...] Oral Tablet 03/24/2020 Provi [place]: Diagnosis: Pen [place] 12/27" 31G X 8 MM Miscellaneous 03/18/2020 [...] complications test as directed tid as needed HM Vitamin D3 4000 UNIT Capsule, conventional 09/12/2014 Provider: Fabian Johnson MD Diagnosis: Dm Without Complicat ion Type II or Unspecified Type Not Stat once a day Medications Administered Includes: Administered Medications from this encounterNo Administered Medications Recorded Vital Signs Includes: Vital Signs from this encounter Vital Name 04/26/2021 10:42A 04/26/2021 10:05A Blood Pressure Sitting R 140/60 144/66 BP Cuff Size Regular Pulse Rate-Sitting (bpm) 75 Pulse Rhythm Regular Respiration Rate (breaths/min) 18 Temp-Temporal 97.2 Height (in) 66 Weight (lb) 178 Body Mass Index (kg/m2) 28.7 Body Surface Area (m2) 1.90 Pain Level 0 Oxygen Saturation (%) 98 Results Includes: Results discussed during this encounter Hgb A1c In-House Labs Ordered by Eloisa Robert [employer] CONSULTANT on 04/26/2021 Specimen Source: Whole blood Collected: 04/26/2021 Reported: 04/26/2021 10:37 Hgb A1c 6.2 N (Normal) Reviewed on 04/26/2021; All test result s are final unless otherwise noted. History of Present Illness Includes: History of Present Illness from this encounter Jakob Moore is a 76 year old male. - Allergy list reviewed - Medication list reviewed - No headache - No worsening vision - No epistaxis - No chest pain or discomfort - No chest pain or discomfort - No dyspnea - No dyspnea - No polyphagia - No changes in urinary habits - No polydipsia - Numbness of the limbs - No dizziness - No tingling of the limbs - Sleep disturbances - No lesion on the feet - - No request for consultation by special ist - Compliance with treatment - No previous emergency room visit - Home blood sugar check performed was 109 04/26/21 a.m Pt presents today for routine, chronic visit. He states that he is feeling well and denies any complaints at this time. Denies CP, palpitations, SOB, wheezing, syncope, AMS, N/V/D, loss of bowel or bladder, or muscular skeletal weakness. (+) Neuropathy but denies any worsening at this time or any open wounds to his feet or elsewhere. He does report intermittent dizziness which occurs when "I don't drink enough water" or during dialysis. He has scheduled dialysis Monday//Monday which he attends regularly. Reports that along with dizziness he has had episodes of hypotension during dialysis. As a result, he has been instructed to not take his scheduled carvedilol the morning of dialysis from 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 Recently had a fistula placed to AMBREEN, denies any issues with that. He is waiting for the site to completely heal before it can be used for dialysis, currently has a right chest wall perm cath for which he receives dialysis through. Reports blood sugars have been well controlled, running in the low to mid 100's. He checks his FSBS daily, if his blood sugar is over 110 he takes 20 units Basaglar and if its under he holds the insulin. Pt reports taking the Basaglar roughly every other day. Pt denies any episodes of hypo/hyperglycemia, BG this morning was 109. He states he has been staying active and "Feels like I'm 56 since starting dialysis". His does most of the cooking, they try and maintain a low carbohydrate, low K, sodium, low fat diet. Denies any thoughts of suicide, depression, or self harm. Refusing the Covid vaccine at this time due to personal issues, pt reports a new vaccine is due to come out in August that me might be interested in. Agreeable to receiving TDAP vaccine today. No active illness within the past week (temp > 100.0 F), no allergies (vaccines, eggs, gelatin), and no recent immunization (live virus: MMR, Varicella, Shingles, Rotovirus, Influenza in past 28 days). Vital signs: (Temperature, Pulse and Respirations obtained, reviewed and within normal limits). No diagnosis of (current or chance of in the next month). No diagnosis of adverse effect of vaccines. No diagnosis of neurologic disorder ([place], Uncontrolled Seizure disorder). No diagnosis of immunologic disorder (cancer, leukemia, AIDS, other). Review immunization schedule [facility] Adult. Review of immunization history 04/26/2021. No gamma globulin (in the past year). Consent Obtained for Vaccines - Parent / Caregiver Present. No steroids (in the past three months). No cancer chemotherapeutic agents (any anti-cancer treatment in the past one month). No blood transfusion (or blood products in the past one month). Social History Description Last Updated No secondhand cigarette smoke exposure 04/26/2021 Smoking status 04/26/2021 : Former smoker 04/26/2021 Alcohol use Denies alcohol consumption 12/24/2018 Caffeine use 2- 16 oz sodas daily, tea 12/24/2018 Educational level high school graduate 12/24/2018 Sexually active 12/24/2018 Procedures and Surgical History Includes: Procedures from this encounter Procedures Code Diagnosis Performing Provider Service Location Service Date Tdap, Tetanus, Diphtheria [place] [address] Encounter for immunization Eloisa Robert NP 04/26/2021 Hemoglobin; Glycated A1c 83867 Diabetes Mellitus Diabe tic Peripheral Neuropathy Eloisa Robert NP 04/26/2021 continue current medication except where otherwise no timoteo medical regimen review Clinical summary provided to patient Summary provided electronically in CCDA format & reasonable certainty of receipt Surgical History Last Updated History of cardiovascular [...] Systems Includes: Review of Systems from this encounter Systemic: Not feeling poorly (malaise). No fever, no chills, no night sweats, and no recent weight change. Head: No headache, no facial pain, and no sinus pain. Neck: No neck pain, no neck stiffness, and no lump or swelling in the neck. Eyes: No vision problems, no itching of the eyes, and no eye pain. No photophobia. Otolaryngeal: No hearing loss, no earache, no tinnitus, no nasal discharge, no epistaxis, no hoarseness, no sore throat, and no bleeding gums. No mouth sores. Breasts: No breast lump, no nipple discharge, and no pain in breast. Cardiovascular: No chest pain or discomfort, no palpitations, and the heart rate was not fast. Pulmonary: No dyspnea, not during exertion, and not nocturnal; causing awakening from sleep. No cough, no hemoptysis, and no wheezing. Gastrointestinal: Normal appetite, no dysphagia, and no heartburn. No nausea, no vomiting, no abdominal pain, and no melena. No diarrhea and no constipation. Genitourinary: No hematuria, no increase in urinary frequency, and no nocturia. No dysuria. No genital lesion. Endocrine: No polydipsia, no excessive sweating, and libido has not changed. Musculoskeletal: No muscle aches, no localized joint pain, and no localized joint stiffness. Neurological: Dizziness. No vertigo, no fainting, no motor disturbances, and no sensory disturbances. Psychological: No anxiety, no depression, and no sleep disturbances. Skin: No pruritus. No skin lesions and no rash. Mental Status Includes: Mental Status from this encounter Description Oriented to time, place, and person No anxiety Functional Status Includes: Functional Status from this encounterNo Functional Status Recorded Physical Exam Includes: Physical Exam from this encounter Skin: -the skin color and pigmentation were normal -the skin general appearance was normal -no ulcer was seen on the feet -the hemodialysis catheter fistula on the left arm showed a bruit was present Eyes: -the extraocular movements were normal Ears, Nose, Throat: -no nasal discharge seen Neck: -the neck demonstrated no decrease in suppleness -the thyroid showed no abnormalities -No carotid bruits Lymph Nodes: -the supraclavicular lymph nodes were not enlarged Lungs: -lungs clear to auscultation -normal breath sounds/voice sounds -no wheezing was heard -no rhonchi were heard -no rales/crackles were heard Cardiovascular System: -thrill left arm fistula -S1 normal -S2 normal -no murmurs were heard -dorsalis pedis pulses were normal -no pitting edema -no bradycardia present -no tachycardia present -heart rhythm regular Abdomen: -abdominal non-tender Musculoskeletal System: -the feet showed an abnormal appearance ; left great toe amputation -abnormal 10-g monofilament exam of right foot -abnormal 10-g monofilament exam of left foot Psychiatric Exam: -the mood was euthymic -the affect was congruent with the mood Neurological System: -oriented to time, place, and person -monofilament wire test of the leg/foot was performed General Status: -in no acute distress -well developed -well nourished Vital Signs: -current vital signs reviewed Immunizations Includes: Immunizations addressed during this encounter Vaccine Dose # Date Site Reaction(s) Status Source Tdap 1 04/26/2021 Right Deltoid Complete (Administered) [facility] Allergies Includes: Active Allergies Substance Type Reaction [...] Date Check-In Time Check-Out Time D iagnosis Chronic Disease Follow-up Eloisa Robert [facility] 04/26/2021 9:44AM 10:54AM Diabetes Mellitus Diabetic Peripheral Ne uropathy, Coronary Artery Disease, Congestive Heart Failure Diastolic Chronic, Chronic Renal Failure, Hyperlipidemia, Hypertension (Systemic), Myelodysplastic Syndrome, Valvular Heart Disease Insurance Includes: Active Insurance Policies Plan Name Member ID Group # Subscriber Relationship Effective Da jemma 1 - [employer] [id number] Jakob Candelaria 11/13/2011 - Unknown 2 - [employer] [id number] Jakob Moore Jr Self 08/14/2014 - Unknown 3 - [employer] [id number] Rosario Moore 01/12/2013 - Unknown Advance Directives Includes: Current Advance Directives Directive Pat Aware Third Green Party Effective Date Reviewed Status RHIO Yes [...] Health Concerns Includes: Health Concerns for current assessments Hypertension (systemic) Onset 12/14/2007 Goals Includes: Active Goals for current assessments HTN: Maintain Blood Pressure Less than 1 40/90 Added 04/26/2019 by Provider Health Concern: Hypertension (systemic) Interventions Includes: Interventions for current assessments Take medications as prescribed Added 04/26/2019 Goal: HTN: Maintain Blood Pressure Less than 140/90 Be compliant with taking medication, and keeping follow- up appointments. Added 04/26/2019 Goal: HTN: Maintain Blood Pressure Less than 140/90 Diet: Reduce sodium (salt) and caffeine. Added 04/26/2019 Goal: HTN: Maintain Blood Pressure Less than 140/90 Avoid nicotine / smoking Added 04/26/2019 Goal: HTN: Maintain Blood Pressure Less than 140/90 Evaluations & Outcomes Includes: Evaluations & Outcomes for current assessments Goal is In Progress Added 04/26/2019 - In Progress Goal: HTN: Maintain Blood Pressure Less than 140/90
--- OUTSIDE RECORDS SUMMARY | 2021-06-24 19:44 | CCD ---
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 Name Role Phone Patricia ANDRADE Unavailable Unavailable Mateusz CHAPIN Unavailable Unavailable Erik Robert ULTRASOUND SPEC Unavailable Unavailable LoryErik berrios ULTRASOUND SPEC Unavailable Unavailable Lory, Erik Amin ULTRASOUND SPEC Unavailable Unavailable Erik Robert ULTRASOUND SPEC Unavailable Unavailable Erik Robert ULTRASOUND SPEC Unavailable Unavailable Lory, A Eloisa ULTRASOUND SPEC Unavailable Unavailable Randolph, A Eloisa ULTRASOUND SPEC Unavailable Unavailable Randolph, A Eloisa ULTRASOUND SPEC Unavailable Unavailable Randolph, A Eloisa ULTRASOUND SPEC Unavailable Unavailable Lory, A Eloisa ULTRASOUND SPEC Unavailable Unavailable Randolph, A Eloisa ULTRASOUND SPEC Unavailable Unavailable Lory, A Eloisa ULTRASOUND SPEC Unavailable Unavailable Randolph, A Eloisa ULTRASOUND SPEC Unavailable Unavailable Randolph, A Eloisa ULTRASOUND SPEC Unavailable Unavailable Lory, A Eloisa ULTRASOUND SPEC Unavailable Unavailable Lory, A Eloisa ULTRASOUND SPEC Unavailable Unavailable Lory, A Eloisa ULTRASOUND SPEC Unavailable Unavailable Randolph, A Eloisa ULTRASOUND SPEC Unavailable Unavailable Lory, A Eloisa ULTRASOUND SPEC Unavailable Unavailable Lory, A Eloisa ULTRASOUND SPEC Unavailable Unavailable Lory, A Eloisa ULTRASOUND SPEC Unavailable Unavailable Randolph, A Eloisa ULTRASOUND SPEC Unavailable Unavailable Randolph, A Eloisa ULTRASOUND SPEC Unavailable Unavailable Randolph, A Eloisa ULTRASOUND SPEC Unavailable Unavailable Randolph, A Eloisa ULTRASOUND SPEC Unavailable Unavailable Randolph, A Eloisa ULTRASOUND SPEC Unavailable Unavailable Geurtsen, Aart Unavailable Unavailable Geurtsen, Aart Unavailable Unavailable Geurtsen, Aart Unavailable Unavailable Geurtsen, Aart Unavailable Unavailable Geurtsen, Aart Unavailable Unavailable Geurtsen, Aart Unavailable Unavailable Geurtsen, Aart Unavailable Unavailable Geurtsen, Aart Unavailable Unavailable Geurtsen, Aart Unavailable Unavailable Geurtsen, Aart Unavailable Unavailable Geurtsen, Aart Unavailable Unavailable Geurtsen, Aart Unavailable Unavailable Geurtsen, Aart Unavailable Unavailable Geurtsen, Aart Unavailable Unavailable Geurtsen, Aart Unavailable Unavailable Geurtsen, Aart Unavailable Unavailable Geurtsen, Aart Unavailable Unavailable Geurtsen, Aart Unavailable Unavailable Geurtsen, Aart Unavailable Unavailable Ray, L Carolyn Unavailable Unavailable Ray, L Carolyn Unavailable Unavailable Ray, L Carolyn Unavailable Unavailable Ray, L Carolyn Unavailable Unavailable Ray, L Carolyn Unavailable Unavailable Ray, L Carolyn Unavailable Unavailable Ray, L Carolyn Unavailable Unavailable Ray, L Carolyn Unavailable Unavailable Ray, L Carolyn Unavailable Unavailable Ray, L Carolyn Unavailable Unavailable Ray, L Carolyn Unavailable Unavailable Ray, L Carolyn Unavailable Unavailable Ray, L Carolyn Unavailable Unavailable Ray, L Carolyn Unavailable Unavailable Ray, L Carolyn Unavailable Unavailable Ray, L Carolyn Unavailable Unavailable Ray, L Carolyn Unavailable Unavailable Ray, L Carolyn Unavailable Unavailable Ray, L Carolyn Unavailable Unavailable Ray, L Carolyn Unavailable Unavailable Ray, L Carolyn Unavailable Unavailable Ray, L Carolyn Unavailable Unavailable Ray, L Carolyn Unavailable Unavailable Ray, L Carolyn Unavailable Unavailable Ray, L Carolyn Unavailable Unavailable Ray, L Carolyn Unavailable Unavailable Ray, L Carolyn Unavailable Unavailable Ray, L Carolyn Unavailable Unavailable Ray, L Carolyn Unavailable Unavailable Ray, L Carolyn Unavailable Unavailable Ray, L Carolyn Unavailable Unavailable Ray, L Carolyn Unavailable Unavailable Ray, L Carolyn Unavailable Unavailable Ray, L Carolyn Unavailable Unavailable Ray, L Carolyn Unavailable Unavailable Ray, L Carolyn Unavailable Unavailable Ray, L Carolyn Unavailable Unavailable Ray, L Carolyn Unavailable Unavailable Ray, L Carolyn Unavailable Unavailable Ray, L Carolyn Unavailable Unavailable Ray, L Carolyn Unavailable Unavailable Ray, L Carolyn Unavailable Unavailable Ray, L Carolyn Unavailable Unavailable Ray, L Carolyn Unavailable Unavailable Ray, L Carolyn Unavailable Unavailable Ray, L Carolyn Unavailable Unavailable Ray, L Carolyn Unavailable Unavailable Ray, L Carolyn Unavailable Unavailable Ray, L Carolyn Unavailable Unavailable Ray, L Carolyn Unavailable Unavailable Ray, L Carolyn Unavailable Unavailable Ray, L Carolyn Unavailable Unavailable Ray, L Carolyn Unavailable Unavailable Ray, L Carolyn Unavailable Unavailable Ray, L Carolyn Unavailable Unavailable Ray, L Carolyn Unavailable Unavailable Ray, L Carolyn Unavailable Unavailable Ray, L Carolyn Unavailable Unavailable Ray, L Carolyn Unavailable Unavailable Ray, L Carolyn Unavailable Unavailable Ray, L Carolyn Unavailable Unavailable Ray, L Carolyn Unavailable Unavailable Ray, L Carolyn Unavailable Unavailable Ray, L Carolyn Unavailable Unavailable Ray, L Carolyn Unavailable Unavailable Ray, L Carolyn Unavailable Unavailable Ray, L Carolyn Unavailable Unavailable Ray, L Carolyn Unavailable Unavailable Ray, L Carolyn Unavailable Unavailable Ray, L Carolyn Unavailable Unavailable Ray, L Carolyn Unavailable Unavailable Ray, L Carolyn Unavailable Unavailable Ray, L Carolyn Unavailable Unavailable Ray, L Carolyn Unavailable Unavailable Ray, L Carolyn Unavailable Unavailable SADAF Burns Elaine Unavailable Hernandez, Anita Unavailable Unavailable Hernandez, Anita Unavailable Unavailable Hernandez, Anita Unavailable Unavailable Hernandez, Anita Unavailable Unavailable Hernandez, Anita Unavailable Unavailable Hernandez, Anita Unavailable Unavailable Hernandez, Anita Unavailable Unavailable Hernandez, Anita Unavailable Unavailable Hernandez, Anita Unavailable Unavailable Hernandez, Anita Unavailable Unavailable Hernandez, Anita Unavailable Unavailable Hernandez, Anita Unavailable Unavailable Hernandez, Anita Unavailable Unavailable Hernandez, Anita Unavailable Unavailable Hernandez, Anita Unavailable Unavailable Hernandez, Anita Unavailable Unavailable Hernandez, Anita Unavailable Unavailable Hernandez, Anita Unavailable Unavailable Hernandez, Anita Unavailable Unavailable Hernandez, Anita Unavailable Unavailable Hernandez, Anita Unavailable Unavailable Hernandez, Anita Unavailable Unavailable Hernandez, Anita Unavailable Unavailable Hernandez, Anita Unavailable Unavailable Hernandez, Anita Unavailable Unavailable Hernandez, Anita Unavailable Unavailable Hernandez, Anita Unavailable Unavailable Hernandez, Anita Unavailable Unavailable Hernandez, Anita Unavailable Unavailable Hernandez, Anita Unavailable Unavailable Hernandez, Anita Unavailable Unavailable Hernandez, Anita Unavailable Unavailable Hernandez, Anita Unavailable Unavailable Hernandez, Anita Unavailable Unavailable Hernandez, Anita Unavailable Unavailable Hernandez, Anita Unavailable Unavailable Hernandez, Anita Unavailable Unavailable JASMINA BLANCHARD MD Unavailable Unavailable JASMINA BLANCHARD MD Unavailable Unavailable JASMINA BLANCHARD MD Unavailable Unavailable JASMINA BLANCHARD MD Unavailable Unavailable Patricia Trejo MD Unavailable Unavailable Patricia Trejo MD Unavailable Unavailable Patricia Trejo MD Unavailable Unavailable Patricia Trejo MD Unavailable Unavailable Patricia Trejo MD Unavailable Unavailable Patricia Trejo MD Unavailable Unavailable Patricia Trejo MD Unavailable Unavailable Patricia Trejo MD Unavailable Unavailable Patricia Trejo MD Unavailable Unavailable Patricia Trejo MD Unavailable Unavailable Patricia Trejo MD Unavailable Unavailable Patricia Trejo MD Unavailable Unavailable Patricia Trejo MD Unavailable Unavailable Patricia Trejo MD Unavailable Unavailable Patricia Trejo MD Unavailable Unavailable Patricia Trejo MD Unavailable Unavailable Patricia Trejo MD Unavailable Unavailable Patricia Trejo MD Unavailable Unavailable Patricia Trejo MD Unavailable Unavailable Patricia Trejo MD Unavailable Unavailable Patricia Trejo MD Unavailable Unavailable Patricia Trejo MD Unavailable Unavailable Patricia Trejo MD Unavailable Unavailable Patricia Trejo MD Unavailable Unavailable Patricia Trejo MD Unavailable Unavailable Patricia Trejo MD Unavailable Unavailable Patricia Trejo MD Unavailable Unavailable Patricia Trejo MD Unavailable Unavailable Patricia Trejo MD Unavailable Unavailable SADAF Ramires, Heather Unavailable QUINN CORONA . Unavailable Unavailable Paco, Dutch Goff MD Unavailable [email or web address] Dutch Chilel MD Unavailable [email or web address] Paco, Dutch Goff MD Unavailable [email or web address] Sherman, A Alexandria PA-C Unavailable Unavailable Sherman, A Alexandria PA-C Unavailable Unavailable Sherman, A Alexandria PA-C Unavailable Unavailable Sherman, A Alexandria PA-C Unavailable Unavailable Shreman, A Alexandria PA-C Unavailable Unavailable Sherman, A Alexandria PA-C Unavailable Unavailable Sherman, A Alexandria PA-C Unavailable Unavailable Sherman, A Alexandria PA-C Unavailable Unavailable Sherman, A Alexandria PA-C Unavailable Unavailable Sherman, A Alexandria PA-C Unavailable Unavailable Sherman, A Alexandria PA-C Unavailable Unavailable Sherman, A Alexandria PA-C Unavailable Unavailable Sherman, A Alexandria PA-C Unavailable Unavailable Sherman, A Alexandria PA-C Unavailable Unavailable Sherman, A Alexandria PA-C Unavailable Unavailable Sherman, A Alexandria PA-C Unavailable Unavailable Sherman, A Alexandria PA-C Unavailable Unavailable Sherman, A Alexandria PA-C Unavailable Unavailable Sherman, A Alexandria PA-C Unavailable Unavailable Sherman, A Alexandria PA-C Unavailable Unavailable Sherman, A Alexandria PA-C Unavailable Unavailable Sherman, A Alexandria PA-C Unavailable Unavailable Sherman, A Alexandria PA-C Unavailable Unavailable Sherman, A Alexandria PA-C Unavailable Unavailable Sherman, A Alexandria PA-C Unavailable Unavailable Sherman, A Alexandria PA-C Unavailable Unavailable [place], J Anne ULTRASOUND SPEC Unavailable Unavailable [place], J Anne ULTRASOUND SPEC Unavailable Unavailable [place], J Anne ULTRASOUND SPEC Unavailable Unavailable [place], J Anne ULTRASOUND SPEC Unavailable Unavailable [place], J Anne ULTRASOUND SPEC Unavailable Unavailable [place], J Anne ULTRASOUND SPEC Unavailable Unavailable [place], J Anne ULTRASOUND SPEC Unavailable Unavailable MOEHLE, C LESLEY PA Unavailable Unavailable MOEHLE, C LESLEY PA Unavailable Unavailable MOEHLE, C LESLEY PA Unavailable Unavailable MOEHLE, C LESLEY PA Unavailable Unavailable MOEHLE, C LESLEY PA Unavailable Unavailable MOEHLE, C LESLEY PA Unavailable Unavailable MOEHLE, C LESLEY PA Unavailable Unavailable MOEHLE, C LESLEY PA Unavailable Unavailable MOEHLE, C LESLEY PA Unavailable Unavailable MOEHLE, C LESLEY PA Unavailable Unavailable Espino, Elsa Mercedes MD Unavailable Unavailable Kenzie, Elsa Mercedes MD Unavailable Unavailable Elsa Espino MD Unavailable Unavailable Kenzie, Elsa Mercedes MD Unavailable Unavailable Kenzie, Elsa Mercedes MD Unavailable Unavailable Kenzie, Elsa Mercedes MD Unavailable Unavailable Kenzie, Elsa Mercedes MD Unavailable Unavailable Kenzie, Elsa Mercedes MD Unavailable Unavailable Kenzie, Elsa Mercedes MD Unavailable Unavailable Kenzie, Elsa Mercedes MD Unavailable Unavailable Kenzie, Elsa Mercedes MD Unavailable Unavailable Kenzie, Elsa Mercedes MD Unavailable Unavailable Kenzie, Elsa Mercedes MD Unavailable Unavailable Kenzie, Elsa Mercedes MD Unavailable Unavailable Kenzie, Elsa Mercedes MD Unavailable Unavailable Kenzie, Elsa Mercedes MD Unavailable Unavailable Kenzie, Elsa Mercedes MD Unavailable Unavailable Kenzie, Elsa Mercedes MD Unavailable Unavailable Kenzie, Elsa Mercedes MD Unavailable Unavailable Kenzie, Elsa Mercedes MD Unavailable Unavailable Kenzie, Elsa Mercedes MD Unavailable Unavailable Kenzie, Elsa Mercedes MD Unavailable Unavailable Kenzie, Elsa Mercedes MD Unavailable Unavailable Elsa Espino MD Unavailable Unavailable Elsa Espino MD Unavailable Unavailable SEMEL, Erik SIMMONS MD Unavailable Unavailable SEMEL, Erik SIMMONS MD Unavailable Unavailable SEMEL, Erik SIMMONS MD Unavailable Unavailable SEMEL, Erik SIMMONS MD Unavailable Unavailable SEMEL, Erik SIMMONS MD Unavailable Unavailable SEMEL, Erik SIMMONS MD Unavailable Unavailable SEMEL, Erik SIMMONS MD Unavailable Unavailable SEMEL, Erik SIMMONS MD Unavailable Unavailable SEMEL, Erik SIMMONS MD Unavailable Unavailable SEMEL, Erik SIMMONS MD Unavailable Unavailable SEMEL, Erik SIMMONS MD Unavailable Unavailable SEMEL, Erik SIMMONS MD Unavailable Unavailable SEMEL, Erik SIMMONS MD Unavailable Unavailable SEMEL, Erik SIMMONS MD Unavailable Unavailable SEMEL, Erik SIMMONS MD Unavailable Unavailable SEMEL, Erik SIMMONS MD Unavailable Unavailable SEMEL, Erik SIMMONS MD Unavailable Unavailable SEMEL, Erik SIMMONS MD Unavailable Unavailable SEMEL, Erik SIMMONS MD Unavailable Unavailable SEMEL, Erik SIMMONS MD Unavailable Unavailable SEMEL, Erik SIMMONS MD Unavailable Unavailable SEMEL, Erik SIMMONS MD Unavailable Unavailable SEMEL, Erik SIMMONS MD Unavailable Unavailable SEMEL, Erik SIMMONS MD Unavailable Unavailable SEMEL, Erik SIMMONS MD Unavailable Unavailable SEMEL, Erik SIMMONS MD Unavailable Unavailable SEMEL, Erik SIMMONS MD Unavailable Unavailable SEMEL, Erik SIMMONS MD Unavailable Unavailable SEMEL, Erik SIMMONS MD Unavailable Unavailable SEMEL, Erik SIMMONS MD Unavailable Unavailable SEMEL, Erik SIMMONS MD Unavailable Unavailable SEMEL, Erik SIMMONS MD Unavailable Unavailable SEMEL, Erik SIMMONS MD Unavailable Unavailable SEMEL, Erik SIMMONS MD Unavailable Unavailable SEMEL, Erik SIMMONS MD Unavailable Unavailable SEMEL, Erik SIMMONS MD Unavailable Unavailable SEMEL, Erik SIMMONS MD Unavailable Unavailable SEMEL, Erik SIMMONS MD Unavailable Unavailable SEMEL, Erik SIMMONS MD Unavailable Unavailable SEMEL, Erik SIMMONS MD Unavailable Unavailable SEMEL, Erik SIMMONS MD Unavailable Unavailable SEMEL, Erik SIMMONS MD Unavailable Unavailable SEMEL, Erik SIMMONS MD Unavailable Unavailable SEMEL, Erik SIMMONS MD Unavailable Unavailable SEMEL, Erik SIMMONS MD Unavailable Unavailable SEMEL, Erik SIMMONS MD Unavailable Unavailable SEMEL, Erik SIMMONS MD Unavailable Unavailable SEMEL, Erik SIMMONS MD Unavailable Unavailable SEMEL, Erik SIMMONS MD Unavailable Unavailable SEMEL, Erik SIMMONS MD Unavailable Unavailable SEMEL, Erik SIMMONS MD Unavailable Unavailable SEMEL, Erik SIMMONS MD Unavailable Unavailable SEMEL, Erik SIMMONS MD Unavailable Unavailable SEMEL, Erik SIMMONS MD Unavailable Unavailable SEMEL, Erik SIMMONS MD Unavailable Unavailable SEMEL, Erik SIMMONS MD Unavailable Unavailable SEMEL, Erik SIMMONS MD Unavailable Unavailable SEMEL, Erik SIMMONS MD Unavailable Unavailable SEMEL, Erik SIMMONS MD Unavailable Unavailable SEMEL, Erik SIMMONS MD Unavailable Unavailable SEMEL, Erik SIMMONS MD Unavailable Unavailable SEMEL, Erik SIMMONS MD Unavailable Unavailable SEMEL, Erik SIMMONS MD Unavailable Unavailable SEMEL, Erik SIMMONS MD Unavailable Unavailable SEMEL, Erik SIMMONS MD Unavailable Unavailable SEMEL, Erik SIMMONS MD Unavailable Unavailable SEMEL, Erik SIMMONS MD Unavailable Unavailable SEMEL, Erik SIMMONS MD Unavailable Unavailable SEMEL, Erik SIMMONS MD Unavailable Unavailable SEMEL, Erik SIMMONS MD Unavailable Unavailable SEMEL, Erik SIMMONS MD Unavailable Unavailable SEMEL, Erik SIMMONS MD Unavailable Unavailable SEMEL, Erik SIMMONS MD Unavailable Unavailable SEMEL, Erik SIMMONS MD Unavailable Unavailable SEMEL, Erik SIMMONS MD Unavailable Unavailable SEMEL, Erik SIMMONS MD Unavailable Unavailable SEMEL, Erik SIMMONS MD Unavailable Unavailable SEMEL, Erik SIMMONS MD Unavailable Unavailable SEMEL, Erik SIMMONS MD Unavailable Unavailable SEMEL, Erik SIMMONS MD Unavailable Unavailable SEMEL, Erik SIMMONS MD Unavailable Unavailable SEMEL, Erik SIMMONS MD Unavailable Unavailable SEMEL, Erik SIMMONS MD Unavailable Unavailable SEMEL, Erik SIMMONS MD Unavailable Unavailable SEMEL, Erik SIMMONS MD Unavailable Unavailable SEMEL, Erik SIMMONS MD Unavailable Unavailable SEMEL, Erik SIMMONS MD Unavailable Unavailable SEMEL, Erik SIMMONS MD Unavailable Unavailable SEMEL, Erik SIMMONS MD Unavailable Unavailable SEMEL, Erik SIMMONS MD Unavailable Unavailable SEMEL, Erik SIMMONS MD Unavailable Unavailable SEMEL, Erik SIMMONS MD Unavailable Unavailable SEMEL, Erik SIMMONS MD Unavailable Unavailable SEMEL, Erik SIMMONS MD Unavailable Unavailable SEMEL, Erik SIMMONS MD Unavailable Unavailable SEMEL, Erik SIMOMNS MD Unavailable Unavailable SEMEL, Erik SIMMONS MD Unavailable Unavailable SEMEL, Erik SIMMONS MD Unavailable Unavailable SEMEL, Erik SIMMONS MD Unavailable Unavailable SEMEL, Erik SIMMONS MD Unavailable Unavailable SEMEL, Erik SIMMONS MD Unavailable Unavailable SEMEL, Erik SIMMONS MD Unavailable Unavailable SEMEL, Erik SIMMONS MD Unavailable Unavailable SEMEL, Erik SIMMONS MD Unavailable Unavailable SEMEL, Erik SIMMONS MD Unavailable Unavailable SEMEL, Erik SIMMONS MD Unavailable Unavailable SEMEL, Erik SIMMONS MD Unavailable Unavailable SEMEL, Erik SIMMONS MD Unavailable Unavailable SEMEL, Erik SIMMONS MD Unavailable Unavailable SEMEL, Erik SIMMONS MD Unavailable Unavailable SEMEL, Erik SIMMONS MD Unavailable Unavailable SEMEL, Erik SIMMONS MD Unavailable Unavailable SEMEL, Erik SIMMONS MD Unavailable Unavailable SEMEL, Erik SIMMONS MD Unavailable Unavailable SEMEL, Erik SIMMONS MD Unavailable Unavailable SEMEL, Erik SIMMONS MD Unavailable Unavailable SEMEL, Erik SIMMONS MD Unavailable Unavailable SEMEL, Erik SIMMONS MD Unavailable Unavailable SEMEL, Erik SIMMONS MD Unavailable Unavailable SEMEL, Erik SIMMONS MD Unavailable Unavailable SEMEL, Erik SIMMONS MD Unavailable Unavailable SEMEL, Erik SIMMONS MD Unavailable Unavailable ANAID ZACARIAS MD Unavailable Unavailable ANAID ZACARIAS MD Unavailable Unavailable Sanchez Baltazar ULTRASOUND SPEC Unavailable Unavailable Sanchez Baltazar ULTRASOUND SPEC Unavailable Unavailable Sanchez Baltazar ULTRASOUND SPEC Unavailable Unavailable Sanchez Baltazar ULTRASOUND SPEC Unavailable Unavailable Surinder De Leon MD Unavailable Unavailable Moises, Surinder Calixto MD Unavailable Unavailable Valencia, Surinder Calixto MD Unavailable Unavailable Moises, Surinder Calixot MD Unavailable Unavailable Valencia, Surinder Calixto MD Unavailable Unavailable MoisesSurinder MD Unavailable Unavailable Valencia, Surinder Calixto MD Unavailable Unavailable ValenciaSurinder MD Unavailable Unavailable Valencia, Surinder Calixto MD Unavailable Unavailable Valencia, Surinder Calixto MD Unavailable Unavailable ValenciaSurinder MD Unavailable Unavailable MoisesSurinder MD Unavailable Unavailable ValenciaSurinder MD Unavailable Unavailable MoisesSurinder MD Unavailable Unavailable ValenciaSurinder MD Unavailable Unavailable ValenciaSurinder MD Unavailable Unavailable Valencia, Surinder Calixto MD Unavailable Unavailable Valencia, Surinder Calixto MD Unavailable Unavailable MoisesSurinder MD Unavailable Unavailable MoisesSurinder MD Unavailable Unavailable MoisesSurinder MD Unavailable Unavailable Moises, Surinder Calixto MD Unavailable Unavailable ValenciaSurinder MD Unavailable Unavailable Valencia, Surinder Calixto MD Unavailable Unavailable Moises, Surinder Calixto MD Unavailable Unavailable Valencia, Surinder Calixto MD Unavailable Unavailable Valencia, Surinder Calixto MD Unavailable Unavailable MoisesSurinder MD Unavailable Unavailable MoisesSurinder MD Unavailable Unavailable Valencia, Surinder Calixto MD Unavailable Unavailable Moises, Surinder Calixto MD Unavailable Unavailable Valencia, Surinder Calixto MD Unavailable Unavailable Valencia, Surinder Claixto MD Unavailable Unavailable Moises, Surinder Calixto MD Unavailable Unavailable Valencia, Surinder Calixto MD Unavailable Unavailable Valencia, Surinder Calixto MD Unavailable Unavailable Valencia, Surinder Calixto MD Unavailable Unavailable Moises, Surinder Calixto MD Unavailable Unavailable Valencia, Surinder Calixto MD Unavailable Unavailable Valencia, Surindre Calixto MD Unavailable Unavailable Valencia, Surinder Calixto MD Unavailable Unavailable Valencia, Surinder Calixto MD Unavailable Unavailable Valencia, Surinder Calixto MD Unavailable Unavailable Valencia, Surinder Calixto MD Unavailable Unavailable Moises, Surinder Calixto MD Unavailable Unavailable Moises, Surinder Calixto MD Unavailable Unavailable Valencia, Surinder Calixto MD Unavailable Unavailable Moises, Surinder Calixto MD Unavailable Unavailable Valencia, Surinder Calixto MD Unavailable Unavailable Moises, Surinder Calixto MD Unavailable Unavailable Valencia, Surinder Calixto MD Unavailable Unavailable Moises, Surinder Calixto MD Unavailable Unavailable Moises, Surinder Calixto MD Unavailable Unavailable Valencia, Surinder Calixto MD Unavailable Unavailable Valencia, Surinder Calixto MD Unavailable Unavailable Moises, Surinder Calixto MD Unavailable Unavailable Valencia, Surinder Calixto MD Unavailable Unavailable Valencia, Surinder Calixto MD Unavailable Unavailable Valencia, Surinder Calixto MD Unavailable Unavailable Moises, Surinder Calixto MD Unavailable Unavailable Valencia, Surinder Calixto MD Unavailable Unavailable Valencia, Surinder Calixto MD Unavailable Unavailable Valencia, Surinder Calixto MD Unavailable Unavailable SEMEL, Erik SIMMONS MD Unavailable Unavailable SEMEL, Erik SIMMONS MD Unavailable Unavailable SEMEL, Erik SIMMONS MD Unavailable Unavailable SEMEL, Erik SIMMONS MD Unavailable Unavailable SEMEL, Erik SIMMONS MD Unavailable Unavailable SEMEL, Erik SIMMONS MD Unavailable Unavailable SEMEL, Erik SIMMONS MD Unavailable Unavailable SEMEL, Erik SIMMONS MD Unavailable Unavailable SEMEL, Erik SIMMONS MD Unavailable Unavailable SEMEL, Erik SIMMONS MD Unavailable Unavailable SEMEL, Erik SIMMONS MD Unavailable Unavailable SEMEL, Erik SIMMONS MD Unavailable Unavailable SEMEL, Erik SIMMONS MD Unavailable Unavailable SEMEL, Erik SIMMONS MD Unavailable Unavailable SEMEL, Erik SIMMONS MD Unavailable Unavailable SEMEL, Erik SIMMONS MD Unavailable Unavailable SEMEL, Erik SIMMONS MD Unavailable Unavailable SEMEL, Erik SIMMONS MD Unavailable Unavailable SEMEL, Erik SIMMONS MD Unavailable Unavailable SEMEL, Erik SIMMONS MD Unavailable Unavailable SEMEL, Erik SIMMONS MD Unavailable Unavailable SEMEL, Erik SIMMONS MD Unavailable Unavailable SEMEL, Erik SIMMONS MD Unavailable Unavailable SEMEL, Erik SIMMONS MD Unavailable Unavailable SEMEL, Erik SIMMONS MD Unavailable Unavailable SEMEL, Erik SIMMONS MD Unavailable Unavailable SEMEL, Erik SIMMONS MD Unavailable Unavailable SEMEL, Erik SIMMONS MD Unavailable Unavailable SEMEL, Erik SIMMONS MD Unavailable Unavailable SEMEL, Erik SIMMONS MD Unavailable Unavailable SEMEL, Erik SIMMONS MD Unavailable Unavailable SEMEL, Erik SIMMONS MD Unavailable Unavailable SEMEL, Erik SIMMONS MD Unavailable Unavailable SEMEL, Erik SIMMONS MD Unavailable Unavailable SEMEL, Erik SIMMONS MD Unavailable Unavailable SEMEL, Erik SIMMONS MD Unavailable Unavailable SEMEL, Erik SIMMONS MD Unavailable Unavailable SEMEL, Erik SIMMONS MD Unavailable Unavailable SEMEL, Erik SIMMONS MD Unavailable Unavailable SEMEL, Erik SIMMONS MD Unavailable Unavailable SEMEL, Erik SIMMONS MD Unavailable Unavailable SEMEL, Erik SIMMONS MD Unavailable Unavailable SEMEL, Erik SIMMONS MD Unavailable Unavailable SEMEL, Erik SIMMONS MD Unavailable Unavailable SEMEL, Erik SIMMONS MD Unavailable Unavailable SEMEL, Erik SIMMONS MD Unavailable Unavailable SEMEL, Erik SIMMONS MD Unavailable Unavailable SEMEL, Erik SIMMONS MD Unavailable Unavailable SEMEL, Erik SIMMONS MD Unavailable Unavailable SEMEL, Erik SIMMONS MD Unavailable Unavailable SEMEL, Erik SIMMONS MD Unavailable Unavailable SEMEL, Erik SIMMONS MD Unavailable Unavailable SEMEL, Erik SIMMONS MD Unavailable Unavailable SEMEL, Erik SIMMONS MD Unavailable Unavailable SEMEL, Erik SIMMONS MD Unavailable Unavailable SEMEL, Erik SIMMONS MD Unavailable Unavailable SEMEL, Erik SIMMONS MD Unavailable Unavailable SEMEL, Erik SIMMONS MD Unavailable Unavailable SEMEL, Erik SIMMONS MD Unavailable Unavailable SEMEL, Erik SIMMONS MD Unavailable Unavailable SEMEL, Erik SIMMONS MD Unavailable Unavailable SEMEL, Erik SIMMONS MD Unavailable Unavailable SEMEL, Erik SIMMONS MD Unavailable Unavailable SEMEL, Erik SIMMONS MD Unavailable Unavailable SEMEL, Erik SIMMONS MD Unavailable Unavailable SEMEL, Erik SIMMONS MD Unavailable Unavailable SEMEL, Erik SIMMONS MD Unavailable Unavailable SEMEL, Erik SIMMONS MD Unavailable Unavailable SEMEL, Erik SIMMONS MD Unavailable Unavailable SEMEL, Erik SIMMONS MD Unavailable Unavailable SEMEL, Erik SIMMONS MD Unavailable Unavailable SEMEL, Erik SIMMONS MD Unavailable Unavailable SEMEL, Erik SIMMONS MD Unavailable Unavailable SEMEL, Erik SIMMONS MD Unavailable Unavailable SEMEL, Erik SIMMONS MD Unavailable Unavailable SEMEL, Erik SIMMONS MD Unavailable Unavailable SEMEL, Erik SIMMONS MD Unavailable Unavailable SEMEL, Erik SIMMONS MD Unavailable Unavailable SEMEL, Erik SIMMONS MD Unavailable Unavailable SEMEL, Erik SIMMONS MD Unavailable Unavailable SEMEL, Erik SIMMONS MD Unavailable Unavailable SEMEL, Erik SIMMONS MD Unavailable Unavailable SEMEL, Erik SIMMONS MD Unavailable Unavailable SEMEL, Erik SIMMONS MD Unavailable Unavailable SEMEL, Erik SIMMONS MD Unavailable Unavailable SEMEL, Erik SIMMONS MD Unavailable Unavailable SEMEL, Erik SIMMONS MD Unavailable Unavailable SEMEL, Erik SIMMONS MD Unavailable Unavailable SEMEL, Erik SIMMONS MD Unavailable Unavailable SEMEL, Erik SIMMONS MD Unavailable Unavailable SEMEL, A IRIS MD Unavailable Unavailable SEMEL, A IRIS MD Unavailable Unavailable SEMEL, A IRIS MD Unavailable Unavailable SEMEL, A IRIS MD Unavailable Unavailable SEMEL, A IRIS MD Unavailable Unavailable SEMEL, A IRIS MD Unavailable Unavailable SEMEL, A IRIS MD Unavailable Unavailable SEMEL, A IRIS MD Unavailable Unavailable SEMEL, A IRIS MD Unavailable Unavailable SEMEL, A IRIS MD Unavailable Unavailable SEMEL, A IRIS MD Unavailable Unavailable SEMEL, A IRIS MD Unavailable Unavailable SEMEL, A IRIS MD Unavailable Unavailable SEMEL, A IRIS MD Unavailable Unavailable SEMEL, A IRIS MD Unavailable Unavailable SEMEL, A IRIS MD Unavailable Unavailable SEMEL, A IRIS MD Unavailable Unavailable SEMEL, A IRIS MD Unavailable Unavailable SEMEL, A IRIS MD Unavailable Unavailable SEMEL, A IRIS MD Unavailable Unavailable SEMEL, A IRIS MD Unavailable Unavailable SEMEL, A IRIS MD Unavailable Unavailable SEMEL, A IRIS MD Unavailable Unavailable SEMEL, A IRIS MD Unavailable Unavailable SEMEL, A IRIS MD Unavailable Unavailable SEMEL, A IRIS MD Unavailable Unavailable SEMEL, A IRIS MD Unavailable Unavailable SEMEL, A IRIS MD Unavailable Unavailable SEMEL, A IRIS MD Unavailable Unavailable SEMEL, A IRIS MD Unavailable Unavailable SEMEL, A IRIS MD Unavailable Unavailable SEMEL, A IRIS MD Unavailable Unavailable Re-disclosure Warning The records that you are about to access may contain information from federally-assisted alcohol or drug abuse programs. If such information is present, then the following federally mandated warning applies: This information has been disclosed to you from records protected by federal confidentiality rules (42 CFR part 2). The federal rules prohibit you from making any further disclosure of this information unless further disclosure is expressly permitted by the written consent of the person to whom it pertains or as otherwise permitted by 42 CFR part 2. A general authorization for the release of medical or other information is NOT sufficient for this purpose. The Federal rules restrict any use of the information to criminally investigate or prosecute any alcohol or drug abuse patient.The records that you are about to access may contain highly sensitive health information, the redisclosure of which is protected by Article 27-F of the [facility] Public Health law. If you continue you may have access to information: Regarding HIV / AIDS; Provided by facilities licensed or operated by the [facility] Office of Mental Health; or Provided by the [facility] Office for People With Developmental Disabilities. If such information is present, then the following [facility] mandated warning applies: This information has been disclosed to you from confidential records which are protected by state law. State law prohibits you from making any further disclosure of this information without the specific written consent of the person to whom it pertains, or as otherwise permitted by law. Any unauthorized further disclosure in violation of state law may result in a fine or chcf sentence or both. A general authorization for the release of medical or other information is NOT sufficient authorization for further disc losure. 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 Status Observation Descr iption Data Source(s) packet given Pt Bill of Rights, Priv Prac, Ad Dir completed packet given Pt Bill of Rights, Priv Prac, Ad Dir [place] ([facility]) Note: Pt declined AD packet Allergies and Adverse Reactions Type Description Substance Reaction Status Data Source(s ) Drug allergy aspirin aspirin [facility] Drug allergy lactulose lactulose unknown [facility] Drug allergy Aasruul-PKW-BqY Reductase Inhibitor Stat ins-HMG-CoA Reductase Inhibitor myalgias [place] [facility] Propensity to adverse reactions ASPIRIN Aluminum aspirin Active [facility] Adverse Reaction Adverse Reaction clopidogrel [place] ([facility]) Drug allergy CLOPIDOGREL BISULFATE CLOPIDOGREL BISULFATE [facility] Family History Family Member Name Family Member Gender Family Member Status Date o f Status Description Data Source(s) Unknown Condition [facility] Unknown Condition [facility] Unknown Condition [facility] Unknown [facility] Unknown Condition [facility] Unknown [facility] Unknown [facility] Unknown Condition [facility] Encounters Encounter Providers Location Date Indications Data Source(s ) Outpatient Attender: Durga De Leon MDReferrer: Carolyn May 06/07/2021 01:07:00 PM EDT - 06/07/2021 01:52:00 PM EDT 6 [place] F/U-[facility] [place] [facility]/U-Conf Patient discharged. Unknown<td ID="encounterTypeDescriptionI D0">Chart Update</td><td>Eloisa Robert NP</td><td></td><td>05/24/2021</td><td>7:51AM</td><td>11:59PM</td><td></td> Attender: Eloisa Robert NP 05/24/2021 07:51:00 AM EDT - 05/24/2021 11:59:00 PM EDT [place] ([facility]) Outpatient Attender: Mago Espino MD 1 07:30:46 PM EDT - 05/15/2021 08:57:14 PM EDT [facility] ([facility]) <td ID="encounterTypeDescriptionID0">Chr onic Disease Follow-up</td><td>Eloisa Robert NP</td><td>[facility]</td><td>04/26/2021</td><td>9:44AM</td><td>10:54AM</td><td><content ID="encounterDiagnosisID0-0">Diabetes Mellitus Diabetic Peripheral Neuropathy</content>, <content ID="encounterDiagnosisID0-1">Coronary Artery Disease</content>, <content ID="encounterDiagnosisID0-2">Congestive Heart Failure Diastolic Chronic</content>, <content ID="encounterDiagnosisID0- 3">Chronic Renal Failure</content>, <content ID="encounterDiagnosisID0- 4">Hyperlipidemia</content>, <content ID="encounterDiagnosisID0-5">Hypertension (Systemic)</content>, <content ID="encounterDiagnosisID0-6">Myelodysplastic Syndrome</content>, <content ID="encounterDiagnosisID0-7">Valvular Heart Disease</content></td>Outpatient Attender: Eloisa Robert NP [facility] 04/26/2021 09:44:00 AM EDT - 04/26/2021 10:54:47 AM EDT Myelodysplastic SyndromeValvular Heart DiseaseCongestive Heart Failure Diastolic ChronicChronic Renal FailureDiabetes Mellitus Diabetic Peripheral NeuropathyHypertension (Systemic)HyperlipidemiaCoronary Artery Disease [place] ([facility]) Myelodysplastic Syndrome Valvular Heart Disease Congestive Heart Failure Diastolic Chron ic Chronic Renal Failure Diabetes Mellitus Diabetic Peripheral Ne uropathy Hypertension (Systemic) Hyperlipidemia Coronary Artery Disease Office Visit Attender: Alexandria Sherman PA-C Main Office 03/2021 10:00:00 AM EDT [facility] ([facility]) <td ID="encounterTypeDescriptionID0">Kizzy rt Update</td><td>Eloisa Robert NP</td><td></td><td>04/16/2021</td><td>8:58PM</td><td>11:59PM</td><td></td>Unkno Attender: Eloisa Robert NP 04/16/2021 08:5 8:00 PM EDT - 04/16/2021 11:59:00 PM EDT [place] [facility] Attender: IRIS PERDOMO MDReferrer: IRIS AMBROCIO MD MOB-MOB.PAT 04/05/2021 09:39:45 AM EDT - 04/05/2021 10:38:11 AM EDT [facility] Outpatient Referrer: IRIS PERDOMO MD MOB-MOB.PAT 03/15 08:45:37 AM EDT - 04/05/2021 08:45:45 AM EDT [facility] SDC Attender: IRIS PERDOMO MDA dmitter: IRIS PERDOMO MDReferrer: IRIS PERDOMO MD ES1-OR 03/03/2021 10:42:36 AM EDT - 04/09/2021 06:55:00 PM EDT [facility] Patient discharged. Outpatient Attender: IRIS PERDOMO MD Main Office 02/24/2021 09:45:0 0 AM EDT [facility] ([facility]) Outpatient Attender: Norm Trejo MDAttender: JASMINA BLANCHARD MD 01/27/2021 12:00:00 AM EDT [facility] Outpatient<td ID="encounterTypeDescripti onID0">Hospital Follow- up</td><td>Anne Horvath NP</td><td>[facility]</td><td>01/20/2021</td><td>9:00AM</td><td>10:09AM</td><td><content ID="encounterDiagnosisID0-0">Myelodysplastic Syndrome</content>, <content ID="encounterDiagnosisID0-1">Hypertension (Systemic)</content>, <content ID="encounterDiagnosisID0-2">Diabetes Mellitus</content>, <content ID="encounterDiagnosisID0-3">Chronic Renal Failure</content></td> Attender: Anne Horvath NP [facility] 01/20/2021 09:00:00 AM EDT - 01/20/2021 10:09:21 AM EDT Myelodysplastic SyndromeChronic Renal Fa ilureHypertension (Systemic)Diabetes Mellitus [place] ([facility]) Myelodysplastic Syndrome Chronic Renal Failure Hypertension (Systemic) Diabetes Mellitus <td ID="encounterTypeDescriptionID0">Kizzy rt Update</td><td>Carolyn May DO</td><td></td><td>01/16/2021</td><td>8:47AM</td><td>11:59PM</td><td></td>Unkno Attender: Carolyn May 01/16/2021 08:47:00 AM EDT - 01/16/2021 11:59:00 PM EDT [place] ([facility]) <td ID="encounterTypeDescriptionID0">Kizzy rt Update</td><td>Carolyn May DO</td><td></td><td>01/12/2021</td><td>9:12PM</td><td>11:59PM</td><td></td>Unkno Attender: Carolyn May 01/12/2021 09:12:00 PM EDT - 01/12/2021 11:59:00 PM EDT [place] ([facility]) <td ID="encounterTypeDescriptionID0">Kizzy rt Update</td><td>Erica Baltazar NP</td><td></td><td>01/08/2021</td><td>2:00PM</td><td>11:59PM</td><td></td>Unkno Attender: Erica Baltazar NP 01/08/2021 02 :00:00 PM EDT - 01/08/2021 11:59:00 PM EDT [facility]) Outpatient Attender: JASMINA BLANCHARD MD [id number] 12/30/2020 12:00:00 AM EDT [facility] <td ID="encounterTypeDescriptionID0">Chr onic Disease Follow-up</td><td>Carolyn Gomez Lalo DO</td><td>[facility]</td><td>12/24/2020</td><td>11:04AM</td><td>12:30PM</td><td><content ID="encounterDiagnosisID0-0">Anemia</content>, <content ID="encounterDiagnosisID0-1">Atrial Fibrillation with Rapid Ventricular Response</content>, <content ID="encounterDiagnosisID0-2">Chronic Renal Failure</content>, <content ID="encounterDiagnosisID0-3">Congestive Heart Failure Diastolic Chronic</content>, <content ID="encounterDiagnosisID0- 4">Coronary Artery Disease</content>, <content ID="encounterDiagnosisID0- 5">Diabetes Mellitus</content>, <content ID="encounterDiagnosisID0- 6">Hyperlipidemia</content>, <content ID="encounterDiagnosisID0-7">Hypertension (Systemic)</content>, <content ID="encounterDiagnosisID0-8">Vitamin D Deficiency</content>, <content ID="encounterDiagnosisID0-9">Acute Cholecystitis</content>, <content ID="encounterDiagnosisID0-10">Acute Pancreatitis Due To Gallstones</content>, <content ID="encounterDiagnosisID0- 11">Myelodysplastic Syndrome</content>, <content ID="encounterDiagnosisID0- 12">Assessment of Feeling Weak</content></td>Outpatient Attender: Carolyn May [facility] 12/24/2020 11:04:00 AM EDT - 12/24/2020 12:30:45 PM ED T Assessment of Feeling WeakAcute Pancreatitis Due To GallstonesAcute CholecystitisAtrial Fibrillation with Rapid Ventricular ResponseMyelodysplastic SyndromeCongestive Heart Failure Diastolic ChronicChronic Renal FailureAnemiaVitamin D DeficiencyHypertension (Systemic)HyperlipidemiaCoronary Artery DiseaseDiabetes Mellitus [place] ([facility]) Assessment of Feeling Weak Acute Pancreatitis Due To Gallstones Acute Cholecystitis Atrial Fibrillation with Rapid Ventricul ar Response Myelodysplastic Syndrome Congestive Heart Failure Diastolic Chron ic Chronic Renal Failure Anemia Vitamin D Deficiency Hypertension (Systemic) Hyperlipidemia Coronary Artery Disease Diabetes Mellitus Outpatient Attender: Carolyn May 12/24/2020 12:00:00 AM EDT [facility] Outpatient Attender: IZABEL MARSHdmitter: IZABEL Barrett rrer: Anita Hernandez 12/15/2020 12:00:00 AM EDT - 12/15/2020 11:59:00 PM EDT Cholecystitis, unspecified [facility] Cholecystitis, unspecified Outpatient Attender: NORY Jacksonr: Anita Hernandez 07 [id number] 12/11/2020 12:00:00 AM EDT [facility] Outpatient Attender: Anita Heranndez [id number] 11/26/2020 12:00:00 AM EDT - 11/26/2020 01:30:09 PM EDT Cholecystitis, unspecified [facility] Cholecystitis, unspecified Outpatient Attender: Durga De Leon MDReferrer: Carolyn May 11/25/2020 12:32:00 PM EDT - 11/25/2020 01:09:00 PM EDT 8 mo f/u - TXT [facility]F [facility] 8 mo f/u - TXT CONF Patient discharged. Outpatient<td ID="encounterTypeDescripti onID0">Hospital Follow-up</td><td>Carolyn May DO</td><td>[facility]</td><td>10/27/2020</td><td>4:02PM</td><td>5:13PM</td><td><content ID="encounterDiagnosisID0-0">Acute Cholecystitis</content>, <content ID="encounterDiagnosisID0-1">Chronic Renal Failure</content>, <content ID="encounterDiagnosisID0-2">Acute Pancreatitis Due To Gallstones</content>, <content ID="encounterDiagnosisID0-3">Congestive Heart Failure Diastolic Chronic</content>, <content ID="encounterDiagnosisID0-4">Clostridium Difficile< /content>, <content ID="encounterDiagnosisID0-5">Atrial Fibrillation with Rapid Ventricular Response</content>, <content ID="encounterDiagnosisID0- 6">Anemia</content>, <content ID="encounterDiagnosisID0-7">Myelodysplastic Syndrome</content></td> Attender: Carolyn May [facility] 10/27/2020 04:0 2:00 PM EDT - 10/27/2020 05:13:15 PM EDT Atrial Fibrillation with Rapid Ventricul ar ResponseClostridium DifficileAcute Pancreatitis Due To GallstonesAcute CholecystitisMyelodysplastic SyndromeCongestive Heart Failure Diastolic ChronicChronic Renal FailureAnemia [place] ([facility]) Atrial Fibrillation with Rapid Ventricul ar Response Clostridium Difficile Acute Pancreatitis Due To Gallstones Acute Cholecystitis Myelodysplastic Syndrome Congestive Heart Failure Diastolic Chron ic Chronic Renal Failure Anemia Outpatient Attender: QUINN CORONA .Referrer: QUINN Cosby 10/16/2020 12:00:00 AM [facility] Outpatient Referrer: LESLEY ZAIDI 10/12/2020 12:00:0 0 AM [facility] Inpatient Attender: [place] Chilel MDAttigor er: Jordan GeurtsenAttender: ANAID BARRAGANPASHABNAM MDAdmitter: ANAID COOKZIPASIC MDReferrer: ANAID COOKZIPASIC MDConsultant: Anita Hernandez [id number] 10/11/2020 12:00:00 AM EST - 10/18/2020 01:40:00 PM [facility] Biliary acute pancreatitis without necrosis or infection [facility] Biliary acute pancreatitis without necro sis or infection Patient discharged. <td ID="encounterTypeDescriptionID0">Kizzy rt Update</td><td>Carolyn May DO</td><td></td><td>10/19/2020</td><td>09/17/2020 4:53PM</td><td>09/17/2020 11:59PM</td><td><content ID="encounterDiagnosisID0-0">Acute Cholecystitis</content>, <content ID="encounterDiagnosisID0-1">Acute Pancreatitis Due To Gallstones</content>, <content ID="encounterDiagnosisID0-2"> Chronic Renal Failure</content>, <content ID="encounterDiagnosisID0- 3">Congestive Heart Failure Diastolic Chronic</content>, <content ID="encounterDiagnosisID0-4">Atrial Fibrillation with Rapid Ventricular Response</content>, <content ID="encounterDiagnosisID0-5">Clostridium Difficile</content></td>Unknown Attender: Carolyn May 04:53:00 PM EST - 09/17/2020 11:59:00 PM EST Clostridium DifficileAtrial Fibrillation with Rapid Ventricular ResponseAcute Pancreatitis Due To GallstonesAcute CholecystitisCongestive Heart Failure Diastolic ChronicChronic Renal Failure [place] ([facility]) Clostridium Difficile Atrial Fibrillation with Rapid Ventricul ar Response Acute Pancreatitis Due To Gallstones Acute Cholecystitis Congestive Heart Failure Diastolic Chron ic Chronic Renal Failure <td ID="encounterTypeDescriptionID2">Cor respondence</td><td>Carolyn May DO</td><td></td><td>09/24/2020</td><td>09/17/2020 11:18AM</td><td>09/17/2020 11:59PM</td><td></td>Unknown Attender: Carolyn May 09/17/2020 11:18:00 AM EST - 09/17/2020 11:59:00 PM [facility]) Outpatient<td ID="encounterTypeDescripti onID3">Primary Care Telehealth FaceTime</td><td>Carolyn May DO</td><td>[facility]</td><td>09/17/2020</td><td>10:44AM</td><td>11:26AM</td><td><content ID="encounterDiagnosisID3-0">Anemia</content>, <content ID="encounterDiagnosisID3-1">Chronic Renal Failure</content>, <content ID="encounterDiagnosisID3-2">Congestive Heart Failure Diastolic Chronic</content>, <content ID="encounterDiagnosisID3-3">Diabetes Mellitus</content>, <content ID="encounterDiagnosisID3-4">Hyperlipidemia</content>, <content ID="encounterDiagnosisID3-5">Hypertension (Systemic)</content></td> Attender: Carolyn May [facility] 09/17/2020 10:44:00 AM EST - 09/17/2020 11:26:07 AM EST Congestive Heart Failure Diastolic Chron icChronic Renal FailureAnemiaHypertension (Systemic)HyperlipidemiaDiabetes Mellitus [place] ([facility]) Congestive Heart Failure Diastolic Chron ic Chronic Renal Failure Anemia Hypertension (Systemic) Hyperlipidemia Diabetes Mellitus <td ID="encounterTypeDescriptionID1">Kizzy rt Update</td><td>Carolyn May DO</td><td></td><td>10/13/2020</td><td>09/17/2020 8:58AM</td><td>09/17/2020 11:59PM</td><td></td>Unknown Attender: Carolyn May 09/17/2020 08:58:00 AM EST - 09/17/2020 11:59:00 PM EST [place] ([facility]) <td ID="encounterTypeDescriptionID6">Car e Management</td><td>Sravanthi Burns RN</td><td></td><td>06/08/2020</td><td>05/12/2020 11:17AM</td><td>05/12/2020 11:59PM</td><td></td>Unknown Attender: Sravanthi Burns RN 05/15 11:17:00 AM EDT - 05/12/2020 11:59:00 PM EDT [place] ([facility] ) Outpatient Attender: Durga De Leon MDReferrer: Carolyn Lalo 05/18/2020 03:30:00 PM EDT TXT CONF follow up [facility], TXT CONF follow up Outpatient<td ID="encounterTypeDescripti onID5">Medication Order</td><td>Carolyn Gomez Lalo DO</td><td></td><td>08/04/2020</td><td>05/12/2020 4:25PM</td><td>05/12/2020 11:59PM</td><td></td> Attender: Carolyn May 05/12/2020 04:25: 00 PM EDT - 05/12/2020 11:59:00 PM EDT [facility] Outpatient<td ID="encounterTypeDescripti onID7">Primary Care Telehealth FaceTime</td><td>Carolyn Patricia May DO</td><td>[facility]</td><td>05/12/2020</td><td>2:17PM</td><td>2:40PM</td><td><content ID="encounterDiagnosisID7-0">Anemia</content>, <content ID="encounterDiagnosisID7-1">Chronic Renal Failure</content>, <content ID="encounterDiagnosisID7-2">Congestive Heart Failure Diastolic Chronic</content>, <content ID="encounterDiagnosisID7-3">Diabetes Mellitus</content>, <content ID="encounterDiagnosisID7-4">Hypertension (Systemic)</content>, <content ID="encounterDiagnosisID7-5">Myelodysplastic Syndrome</content></td> Attender: Carolyn May [facility] 05/12/2020 02:1 7:00 PM EDT - 05/12/2020 02:40:33 PM EDT Myelodysplastic SyndromeMyelodysplastic SyndromeMyelodysplastic SyndromeCongestive Heart Failure Diastolic ChronicCongestive Heart Failure Diastolic ChronicCongestive Heart Failure Diastolic ChronicChronic Renal FailureChronic Renal FailureChronic Renal FailureAnemiaAnemiaAnemiaHypertension (Systemic)Hypertension (systemic)Hypertension (systemic)Diabetes MellitusDiabetes MellitusDiabetes Mellitus [place] ([facility]) Myelodysplastic Syndrome Myelodysplastic Syndrome Myelodysplastic Syndrome Congestive Heart Failure Diastolic Chron ic Congestive Heart Failure Diastolic Chron ic Congestive Heart Failure Diastolic Chron ic Chronic Renal Failure Chronic Renal Failure Chronic Renal Failure Anemia Anemia Anemia Hypertension (Systemic) Hypertension (systemic) Hypertension (systemic) Diabetes Mellitus Diabetes Mellitus Diabetes Mellitus Unknown<td ID="encounterTypeDescriptionI D4">Correspondence</td><td>Carolyn May DO</td><td></td><td>08/27/2020</td><td>05/12/2020 2:13PM</td><td>05/12/2020 11:59PM</td><td></td> Attender: Carolyn May 05/12/2020 02:13: 00 PM EDT - 05/12/2020 11:59:00 PM EDT [place] ([facility]) <td ID="encounterTypeDescriptionID8">Kizzy rt Prep</td><td>Stefany Rees RN</td><td></td><td>05/06/2020</td><td>02/28/2020 11:33AM</td><td>04/03/2020 11:59PM</td><td></td>Unknown Attender: Heather Ramires RN 04/15 11:33:00 AM EDT - 04/03/2020 11:59:00 PM EDT [place] ([facility] ) Unknown<td ID="encounterTypeDescriptionI D9">Chart Update</td><td>Carolyn May DO</td><td></td><td>04/27/2020</td><td>02/28/2020 1:48PM</td><td>04/03/2020 11:59PM</td><td></td> Attender: Carolyn May 04/27/2020 01:48: 00 PM EDT - 04/03/2020 11:59:00 PM EDT [place] ([facility]) Outpatient Attender: Durga De Leon MDReferrer: Eloisa Judd 04/03/2020 01:34:00 PM EDT - 04/03/2020 02:12:00 PM EDT Cataract Clearance -Conf [facility] Cataract Clearance -Conf Patient discharged. Outpatient Attender: Durga De Leon MDReferrer: Eloisa Childressagustina Moy P 03/03/2020 09:22:00 AM EDT Clearance for Nitro Use/chest pressure - surg 03/12 Phy [facility]icians [facility], [facility] Clearance for Nitro Use/chest pressure - surg 03/12 Immunizations Vaccine Date Status Description Data Source(s) Tdap 04/26/2021 11:02:00 AM EDT completed <td ID="Gkdgluazxuaey-Xtloyfnxflo-VY7">Tdap</td><td ID="ImmunizationDose- 0">1</td><td>04/26/2021</td><td ID="Xwuitmjorpnzo-IzkcyPevz-LE8">Right Deltoid</td><td></td><td ID="Edekrrvgjwnzp-Uqprnt-NU7">Complete (Administered)</td><td>[facility]</td><td ID="Hxpmprpzfzokw-Twrei-Pbnz-Comment-ID0"></td> [place] ([facility]) Moderna COVID-19 10/27/2020 05:12:00 PM EDT completed <td ID="Wddpcwukdanej-Octfxcmldek-QB4">Moderna COVID-19</td><td ID="ImmunizationDose-0">1</td><td>10/27/2020</td><td ID="Yvwhyaxhanfyf-BxweiHxbj-GN4"></td><td></td><td ID="Ejvkfmmetxypt-Gztyow-PN1">Complete (Refused - Patient objection)</td><td>[facility]</td><td ID="Swsukcmivcszd-Uyxaj-Ugha-Comment-ID0"></td> [place] ([facility]) Medications Medication Brand Name Start Date Product Form Dose Route Admi nistrative Instructions Pharmacy Instructions Status Indications Reaction Description Data Source(s) IMANINTouch Ultra In Vitro Strip OneTouch Ultra In Vitro Strip 04/26/2021 12:00:00 AM EDT 1 active OneTouch Ultra GR [place] ([facility]) OneTouch Delica Lancets 30G Miscellaneous OneTouch Del ica Lancets 30G Miscellaneous 04/26/2021 12:00:00 AM EDT 1 acti ve OneTouch Delica Lancets 30G [place] ([facility]) Basaglar KwikPen 100 UNIT/ML Subcutaneous Solution Pen -injector Basaglar KwikPen 100 UNIT/ML Subcutaneous Solution Pen-injector 04/26/2021 12:00:00 AM EDT active 3 ML insulin glargine 100 UNT/ML Pen Injector [Basaglar] [place] ([facility]) OneTouch Ultra Mini w/Device Kit OneTouch Ultra Mini w/Devic e Kit 04/26/2021 12:00:00 AM EDT 1 active OneTouch Ultra Mini [place] ([facility]) normal saline flush 0.9 % injection 3 mL [id number] 04/09/2021 10:00:00 PM EDT 3 mL Intravenous active 3 mL , Intravenous, Every 8 hours (scheduled), First dose on Mon04/09/21 at 2200, PACU (only)
flush per protocol, D/C Main IV fluid if appropriate
[facility] Medication administered onsite Acetaminophen 325 MG Oral Tablet acetaminophen (TYLENO L) 325 MG tablet 650 mg acetaminophen (TYLENOL) 325 MG tablet 650 mg 04/09/2021 08:00:00 PM EDT 650 mg Oral completed 650 mg, Or al, Once, On Mon04/09/21 at 2000, For 1 dose
"Maximum dose of acetaminophen is 4,000 mg from all sources in 24 hours."
[facility] Medication administered onsite Albuterol 0.833 MG/ML / Ipratropium Brom scott 0.167 MG/ML Inhalant Solution ipratropium-albuterol (DUO-NEB) 0.5-2.5 mg/mL nebulizer solution 3 mL ipratropium-albuterol (DUO-NEB) 0.5-2.5 mg/mL nebulizer solution 3 mL 04/09/2021 08:00:00 PM EDT 3 mL Inhalation active Bronchospasm 3 mL, Inhalation, Once, On Mon04/09/21 at 2000, For 1 dose, PACU (only) [facility] Bronchospasm Medication administered onsite Magnesium Chloride 0.71643 MEQ/ML / Pota ssium Chloride 0.0497 MEQ/ML / Sodium Acetate 0.0163 MEQ/ML / Sodium Chloride 0.0899 MEQ/ML / Sodium gluconate 5.02 MG/ML Injectable Solution [Normosol-R] electrolyte-R (NORMOSOL-R/PLASMALYTE-R) solution electrolyte-R (NORMOSOL-R/PLASMALYTE-R) solution 04/09 08:00:00 PM EDT Intravenous active at 1 50 mL/hr, Intravenous, Continuous, Starting on Mon04/09/21 at 2000, For 1 day, PACU (only) [facility] Medication administered onsite 10 ML Atropine Sulfate 0.1 MG/ML Prefill ed Syringe atropine sulfate injection 0.5 mg atropine sulfate injection 0.5 mg 04/09/2021 06:47:36 PM EDT 0.5 mg active 0.5 mg, Intrave nous Push, Every 5 min PRN, other, As needed, for heart rate less than 60 BPM and the patient is hemodynamically unstable and/or SBP is less than 90mmHg, Starting on Mon04/09/21 at 1847, For 1 day, PACU (only)
Not to exceed a total of 3 mg or 0.04 mg/kg. Max of 6 doses
[facility] Medication administered onsite ondansetron (ZOFRAN) injection 4 mg [id number] 04/09/2021 06:47:3 6 PM EDT 4 mg Intravenous active 4 mg, In travenous, Once as needed, nausea, vomiting, if not given in last 4 hours, Starting on Mon04/09/21 at 1847, For 1 dose, PACU (only) [facility] Medication administered onsite Racepinephrine 22.5 MG/ML Inhalant Solut ion racepinephrine HCl (VAPONEFRIN) 2.25 % inhalation solution 1 mL racepinephrine HCl (VAPONEFRIN) 2.25 % i nhalation solution 1 mL 04/09/2021 06:47:36 PM EDT 1 mL Inhalation active PACU (only), 1 mL, Inhalation, Once as needed, 1 dose, Starting on Mon04/09/21 at 1847, Until Mon04/09/21 at 2359 [facility] Medication administered onsite Albuterol 0.83 MG/ML Inhalant Solution a lbuterol (PROVENTIL) nebulizer solution 2.5 mg albuterol (PROVENTIL) nebulizer solution 2.5 mg 2020 06:47:36 PM EDT 2.5 mg active Reversible Obstructive Airway DiseaseRespiratory Distress Syndrome in the NewbornBronchospastic DiseaseAcute Bronchospastic Disease 2.5 mg, Nebulization, Once a s needed, wheezing, Starting on Mon04/09/21 at 1847, For 1 dose, PACU (only) [facility] Reversible Obstructive Airway Disease Respiratory Distress Syndrome in the New born Bronchospastic Disease Acute Bronchospastic Disease Medication administered onsite labetalol (NORMODYNE,TRANDATE) injection 5 mg [id number] 04/09/2021 06:47:36 PM EDT 5 mg Intravenous active 5 mg , Intravenous, Every 5 min PRN, high blood pressure, for SBP greater than 160, Starting on Mon04/09/21 at 1847, For 4 doses, PACU (only)
Max of 20 MG, hold for HR less than 60
[facility] Medication administered onsite HYDROmorphone (DILAUDID) injection 0.5 mg [id number] 04/09/2021 06:47:36 PM EDT 0.5 mg Intravenous active 0.5 mg, Intravenous, Every 5 min PRN, severe pain (7-10), Starting on Mon04/09/21 at 1847, For 5 doses, PACU (only) [facility] Medication administered onsite Hydralazine Hydrochloride 20 MG/ML Injec table Solution hydrALAZINE (APRESOLINE) injection 5 mg hydrALAZINE (APRESOLINE) injection 5 mg 04/09/2021 06: 47:36 PM EDT 5 mg Intravenous active 5 mg , Intravenous, Every 20 min PRN, high blood pressure, for SBP greater than 160 when labetelol cannot be used for HR less than 60 or max labetalol has been given, Starting on Mon04/09/21 at 1847, For 4 doses, PACU (only)
Max dose of 20 mg
[facility] Medication administered onsite fentaNYL Citrate (PF) (SUBLIMAZE) injection 25 mcg [id number] 04/09/2021 06:47:36 PM EDT 25 ug Intravenous active 25 mcg, Intravenous, Every 5 min PRN, moderate pain (4-6), Starting on Mon04/09/21 at 1847, For 12 doses, PACU (only) [facility] Medication administered onsite dextrose 5 % and sodium chloride 0.45 % infusion [id number] 04/09/2021 02:00:00 PM EDT 30 mL/h Intravenous active at 30 mL/hr, 30 mL/hr, Intravenous, Continuous, Starting on Mon04/09/21 at 1400, Pre-op
For diabetics with renal failure on hemo dialysis or peritoneal dialysis
[facility] Medication administered onsite normal saline flush 0.9 % injection 3 mL [id number] 04/09/2021 02:00:00 PM EDT 3 mL Intravenous active 3 mL , Intravenous, Every 8 hours (scheduled), First dose on Mon04/09/21 at 1400, Pre-op
Rapid push positive pressure flushing shall be performed with a 10 cc normal saline syringe to check the PATENCY of a PIV site prior to any infusion therapy initiation unless resistance is met.
[facility] Medication administered onsite carvedilol 25 MG Oral Tablet Carvedilol 25 MG Oral Tab let Carvedilol 25 MG Oral Tablet 03/01/2021 12:00:00 AM EDT 1 active carvedilol 25 MG Oral Tablet [facility] ([facility]) ezetimibe 10 MG Oral Tablet Ezetimibe 10 MG Oral Table t Ezetimibe 10 MG Oral Tablet 01/29/2021 12:00:00 AM EDT 1 active ezetimibe 10 MG Oral Tablet [place] ([facility]) Trazodone Hydrochloride 50 MG Oral Tablet Trazodone HCL 01/22/2021 12:00:00 AM EDT ORAL active [facility] ([facility] Epoetin Cameron 83455 UNT/ML Injectable Marycarmen ution Epoetin Cameron 31448 UNIT/ML Injection Solution Epoetin Cameron 14360 UNIT/ML Injection Solution 01/17/20 12:00:00 AM EDT active epoetin cameron 70486 UNT/ML Injectable Solution [facility] Daily Value Multivitamin Oral Tablet Daily Value Multivitami n Oral Tablet 01/16/2021 12:00:00 AM EDT 1 active Daily Value Multivitamin [facility] Finasteride 5 MG Oral Tablet Finasteride 5 MG Oral Tablet 12:00:00 AM EDT 1 aborted finasteride 5 MG Oral Tablet [facility] [facility] Sucralfate 1000 MG Oral Tablet Sucralfate 01/13/2021 12:00:00 AM EDT active [facility] ([facility]) Tamsulosin hydrochloride 0.4 MG Oral Capsule Tamsulosi n HCl 0.4 MG Oral Capsule Tamsulosin HCl 0.4 MG Oral Capsule 01/12/2021 12:00:00 AM EDT 1 active tamsulosin hydrochloride 0.4 MG Oral Cap sina [facility] ([facility]) Probiotic Daily Probiotic Daily 01/06/2021 12:00:00 AM EDT ORAL active [facility] ([facility]) Epoetin Cameron 63194 UNT/ML Injectable Solution [Procrit] Proc rit 01/06/2021 12:00:00 AM EDT active M [facility]ENT ([facility]) Basaglar KwikPen 100 UNIT/ML Subcutaneous Solution Pen -injector Basaglar KwikPen 100 UNIT/ML Subcutaneous Solution Pen-injector 12/24/2020 12:00:00 AM EDT active Sensor 3 ML insulin glargine 100 UNT/ML Pen Injector [Basaglar] [facility] iohexol (OMNIPAQUE) 240 MG/ML contrast [id number] 12/15/2020 11:09:30 A M EDT completed Code/Trauma Medication, S tarting on Mon12/15/[address] [place] [address] Medication administered onsite lactobacillus combination no.8 (Adult Probiotic) 11/25 12:44:09 PM EDT ORAL active [facility] lactobacillus combination no.8 (Adult Probiotic) 11/25 12:44:09 PM EDT [facility] Ins[facility] Glargine Insulin Glargine (Basag lar Kwikpen U-100 Insulin) 100 unit/mL (3 mL) insulin pen Insulin Glargine (Basaglar Kwikpen U-100 Insulin) 100 unit/mL (3 mL) insulin pen 11/25/2020 12:44:00 PM EDT UNASSIGNED 30 UNIT S UBCUTANEOUSLY active [facility] Insulin Glargine Insulin Glargine (Basag lar Kwikpen U-100 Insulin) 100 unit/mL (3 mL) insulin pen Insulin Glargine (Basaglar Kwikpen U-100 Insulin) 100 unit/mL (3 mL) insulin pen 11/25/2020 12:44:00 PM EDT UNASSIGNED 30 UNIT S UBCUTANEOUSLY active [facility] irbesartan 300 MG Oral Tablet Irbesartan Irbesartan 12:43:29 PM EDT TABLET 300 MG ORAL active [facility] irbesartan 300 MG Oral Tablet Irbesartan Irbesartan 12:43:29 PM EDT TABLET 300 MG ORAL [facility] Nitroglycerin 0.4 MG Sublingual Tablet [ Nitrostat] Nitrostat 0.4 MG Sublingual Tablet Sublingual Nitrostat 0.4 MG Sublingual Tablet Sublingual 11/17/19 12:00:00 AM EDT completed nitroglycerin 0.4 MG Sublingual Tablet [Nitrostat] [place] ([facility]) Nitroglycerin 0.4 MG Sublingual Tablet N itroglycerin 0.4 MG Sublingual Tablet Sublingual Nitroglycerin 0.4 MG Sublingual Tablet Sublingual 10/12 12:00:00 AM EST active nitroglycerin 0. 4 MG Sublingual Tablet [facility] ([facility]) carvedilol 3.125 MG Oral Tablet Carvedilol 3.125 MG Or al Tablet Carvedilol 3.125 MG Oral Tablet 10/19/2020 12:00:00 AM EST 1 ab orted carvedilol 3.125 MG Oral Tablet [place] ([facility]) irbesartan 300 MG Oral Tablet Irbesartan 300 MG Oral T ablet Irbesartan 300 MG Oral Tablet 10/19/2020 12:00:00 AM EST 1 active irbesartan 300 MG Oral Tablet [place] ([facility]) Levofloxacin 750 MG Oral Tablet levoFLOXacin 750 MG Or al Tablet (LEVAQUIN) levoFLOXacin 750 MG Oral Tablet (LEVAQUIN) 10/19/2020 12:00:00 AM EST 750 mg Oral active Take 1 tablet by adela th every other day for 2 doses [facility] irbesartan 300 MG Oral Tablet Irbesartan 300 MG Oral T ablet (AVAPRO) Irbesartan 300 MG Oral Tablet (AVAPRO) 10/19/2020 12:00:00 AM EST 300 mg Oral active Take 1 tablet by mouth nightly [facility] Saccharomyces boulardii 250 MG Oral Capsule Saccharomy jian boulardii 250 MG Oral Capsule 10/19/2020 12:00:00 AM EST 1 active Saccharomyces boulardii 250 MG Oral Capsule [facility] ([facility] Hydralazine Hydrochloride 25 MG Oral Tablet hydrALAZIN E HCl 25 MG Oral Tablet hydrALAZINE HCl 25 MG Oral Tablet 10/19/2020 12:00:00 AM EST 1 aborted hydralazine hydrochloride 25 MG Oral Tab let [facility] ([facility] Levofloxacin 750 MG Oral Tablet levoFLOXacin 750 MG Or al Tablet levoFLOXacin 750 MG Oral Tablet 10/19/2020 12:00:00 AM EST ab orted levofloxacin 750 MG Oral Tablet [facility] ([facility] Vancomycin 125 MG Oral Capsule Vancomycin HCl 125 MG O ral Capsule Vancomycin HCl 125 MG Oral Capsule 10/19/2020 12:00:00 AM EST 1 aborted vancomycin 125 MG Oral Capsule [facility] ([facility]) Saccharomyces boulardii 250 MG Oral Caps ule Saccharomyces boulardii 250 MG Oral Capsule (FLORASTOR) Saccharomyces boulardii 250 MG Oral Capsule (FLORASTOR ) 10/18/2020 12:00:00 AM EST 250 mg Oral active Take 1 capsule by mouth Two Times Daily [facility] Hydralazine Hydrochloride 25 MG Oral Tab let hydrALAZINE HCl 25 MG Oral Tablet (APRESOLINE) hydrALAZINE HCl 25 MG Oral Tablet (APRESOLINE) 021 12:00:00 AM EST 25 mg Oral active Take 1 tablet by mouth every 8 (eight) hours [facility] Vancomycin 125 MG Oral Capsule Vancomycin HCl 125 MG O ral Capsule (VANCOCIN) Vancomycin HCl 125 MG Oral Capsule (VANCOCIN) 10/18/2020 12:00:00 AM EST 125 mg Oral active Take 1 capsule by mouth Four times daily [facility] carvedilol 25 MG Oral Tablet Carvedilol 25 MG Oral Tab let (COREG) Carvedilol 25 MG Oral Tablet (COREG) 10/18/2020 12:00:00 AM EST 25 mg Oral active Take 1 tablet by mouth Two times daily with meals Take together with 3.125 mg tab for total 28.125 mg [facility] carvedilol 3.125 MG Oral Tablet Carvedilol 3.125 MG Or al Tablet (COREG) Carvedilol 3.125 MG Oral Tablet (COREG) 10/18/2020 12:00:00 AM EST 3.125 mg Oral active Take 1 tablet by mouth Two times daily with meals Take with 25 mg tab for total of 28.125 mg [facility] Oxycodone Hydrochloride 5 MG Oral Tablet oxyCODONE (ROXICODONE) immediate release tablet 2.5 mg oxyCODONE (ROXICODONE) immediate release tablet 2.5 mg 10/17/2020 10:30:00 PM EST 2.5 mg Oral completed 2.5 mg, Oral, Once, 10/17/20 at 2230, For 1 dose
Oxycodone immediate release is limited to 10 mg per dose. Higher doses ( only) require Pain Service consultation and approval.
[facility] Medication administered onsite Vancomycin 125 MG Oral Capsule vancomycin (VANCOCIN) c apsule 125 mg vancomycin (VANCOCIN) capsule 125 mg 10/17/2020 09:00:00 PM EST 125 mg Oral active 125 mg, Oral, Four Times Daily Standard , First dose on 10/17/20 at 2100, For 19 days
Indicated for severe C. difficile infection, defined as: WBC > 15,000 SCr > 1.5 times the premorbid level Hypotension or shock Ileus Megacolon
[facility] Medication administered onsite Insulin Glargine 100 UNT/ML Injectable S olution insulin glargine (LANTUS) injection 16 Units insulin glargine (LANTUS) injection 16 Units 09:00:00 PM EST 16 U Subcutaneous active 16 Units, Subcutaneous, Nightly, First dose (after last modification) on 10/17/20 at 2100, For 28 doses
For blood glucose less than 70 mg/dL: follow hypoglycemia protocol ( ) and notify provider. For blood glucose values between 70 mg/dL and 100 mg/dL at bedtime: provide snack (15 grams of carbohydrates) with some protein. Administer FULL DOSE of insulin glargine (LANTUS) after snack. Record snack in I&O's. For blood glucose more than 400 mg/dL: notify provider
[facility] Medication administered onsite Saccharomyces boulardii 250 MG Oral Caps ule saccharomyces boulardii (FLORASTOR) capsule 250 mg saccharomyces boulardii (FLORASTOR) capsule 250 mg 01/2021 09:00:00 PM EST 250 mg Oral active 250 mg, Oral, 2 Times Daily, First dose on 10/17/20 at 2100, For 30 days [facility] Medication administered onsite lactobacillus cultures (BACID) 1 tablet [id number] 10/18/19 11:00:00 AM EST 1 {tbl} Oral active 1 tablet, Oral, Daily Standard, First dose on 10/17/20 at 1100, For 30 days [facility] Medication administered onsite Levofloxacin 750 MG Oral Tablet levofloxacin (LEVAQUIN ) tablet 750 mg levofloxacin (LEVAQUIN) tablet 750 mg 10/17/2020 09:00:00 AM EST 75 0 mg Oral active 750 mg, Oral, E very other day, First dose on 10/17/20 at 0900, For 3 doses
Discouraged Uses: Treatment of UTI
[facility] Medication administered onsite Hydralazine Hydrochloride 25 MG Oral Tab let hydrALAZINE (APRESOLINE) tablet 25 mg hydrALAZINE (APRESOLINE) tablet 25 mg 10/17/2020 09:00:00 AM EST 25 mg Oral active 25 mg, Oral, E very 8 hours Standard (3 times per day), First dose on 10/17/20 at 0900, For 30 days
Check vital signs before administering
[facility] Medication administered onsite irbesartan 75 MG Oral Tablet irbesartan (AVAPRO) table t 300 mg irbesartan (AVAPRO) tablet 300 mg 10/17/2020 09:00:00 AM EST 300 mg Oral active 300 mg, Oral, Nightly, First dose on 10/17/20 at 0900, For 30 days [facility] Medication administered onsite Metoprolol Tartrate 1 MG/ML Injectable S olution metoprolol (LOPRESSOR) injection 5 mg metoprolol (LOPRESSOR) injection 5 mg 10/17/2020 02:00:00 AM EST 5 mg Intravenous completed 5 mg, Intrave nous, Once, 10/17/20 at 0200, For 1 dose
Dilute in 25 or 50 mL NS and administer over 30 minutes. If giving IVP, must be administered under the direct supervision of a medical provider and patient on a monitor tech.
[facility] Medication administered onsite Insulin Glargine 100 UNT/ML Injectable S olution insulin glargine (LANTUS) injection 14 Units insulin glargine (LANTUS) injection 14 Units 09:00:00 PM EST 14 U Subcutaneous aborted 14 Units, Subcutaneous, Nightly, First dose (after last modification) on Mon10/16/20 at 2100, For 29 doses
For blood glucose less than 70 mg/dL: follow hypoglycemia protocol (CM ) and notify provider. For blood glucose values between 70 mg/dL and 100 mg/dL at bedtime: provide snack (15 grams of carbohydrates) with some protein. Administer FULL DOSE of insulin glargine (LANTUS) after snack. Record snack in I&O's. For blood glucose more than 400 mg/dL: notify provider
[facility] Medication administered onsite carvedilol (COREG) tablet 28.125 mg 10/16/2020 06:00:00 PM EST 28.125 mg Oral active 28.125 mg, Ora l, 2 Times Daily With Meals, First dose (after last modification) on Mon10/16/20 at 1800, For 51 doses
Check vital signs before administering
[facility] Medication administered onsite magnesium sulfate in dextrose 5 % infusion (premix) 1 g [id number] 10/16/2020 09:00:00 AM EST 1 g Intravenous completed 1 g, Intravenous, Administer over 60 Minutes, Once, Mon10/16/20 at 0900, For 1 dose [facility] Medication administered onsite carvedilol 3.125 MG Oral Tablet carvedilol (COREG) tab let 3.125 mg carvedilol (COREG) tablet 3.125 mg 10/16/2020 09:00:00 AM EST 3.125 mg Oral active 3.125 mg, Oral, Once, Mon10/16/20 at 0900 , For 1 dose
Check vital signs before administering
[facility] Medication administered onsite Furosemide 40 MG Oral Tablet furosemide (LASIX) tablet 80 mg furosemide (LASIX) tablet 80 mg 10/16/2020 09:00:00 AM EST 80 mg Oral compl eted 80 mg, Oral, Once, Mon10/16/20 at 0900, For 1 dose [facility] Medication administered onsite Hydralazine Hydrochloride 20 MG/ML Injec table Solution hydrALAZINE (APRESOLINE) injection 10 mg hydrALAZINE (APRESOLINE) injection 10 mg 10/16/2020 04 :15:00 AM EST 10 mg Intravenous completed 10 mg, Intravenous, Once, Mon10/16/20 at 0415, For 1 dose
Dilute in 25-50 ml normal saline. Administer over 30 minutes.
[facility] Medication administered onsite Insulin Glargine 100 UNT/ML Injectable S olution insulin glargine (LANTUS) injection 12 Units insulin glargine (LANTUS) injection 12 Units 10:00:00 PM EST 12 U Subcutaneous aborted 12 Units, Subcutaneous, Nightly, First dose on Mon10/15/20 at 2200, For 30 days
For blood glucose less than 70 mg/dL: follow hypoglycemia protocol ( ) and notify provider.&amp ;nbsp; For blood glucose values between 70 mg/dL and 100 mg/dL at bedtime: provide snack (15 grams of carbohydrates) with some protein. Administer FULL DOSE of insulin glargine (LANTUS) after snack. Record snack in I&O's. For blood glucose more than 400 mg/dL: notify provider
[facility] Medication administered onsite furosemide (LASIX) injection 60 mg [id number] 10/15/2020 02:30:00 PM EST 60 mg Intravenous completed 60 mg, I ntravenous, Once, Scarlett 10/15/20 at 1430, For 1 dose
Notify provider if systolic blood pressure less than: 100 [facility] Medication administered onsite POLYETHYLENE GLYCOL 3350 142 MG/ML Oral Solution polyethylene glycol (MIRALAX) packet 17 g polyethylene glycol (MIRALAX) packet 17 g 10/15/2020 0 1:20:21 PM EST 17 g Oral active 17 g, Or al, Daily PRN, constipation, Starting Scarlett 10/15/20 at 1320, For 30 days
Mix in 8 ounces of water, juice or milk. Avoid use in patients who require thickened liquids due to potential increased risk for aspiration.
[facility] Medication administered onsite Piperacillin 3000 MG / tazobactam 375 MG Injection piperacillin-tazobactam (ZOSYN) IVPB 3.375 g (premix) piperacillin-tazobactam (ZOSYN) IVPB 3.3 75 g (premix) 10/15/2020 09:00:00 AM EST 3.375 g Intravenous abo rted 3.375 g, Intravenous, Administer over 4 Hours, Every 8 hours, First dose on Mon10/15/20 at 0900, For 5 days
This specific formulation of piperacillin- tazobactam is compatible with Lactated Ringers.
[facility] Medication administered onsite magnesium sulfate in dextrose 5 % infusion (premix) 1 g [id number] 10/15/2020 09:00:00 AM EST 1 g Intravenous completed 1 g, Intravenous, Administer over 60 Minutes, Every 1 hour, First dose on Mon10/15/20 at 0900, For 2 doses [facility] Medication administered onsite furosemide (LASIX) injection 40 mg [id number] 10/15/2020 08:00:00 AM EST 40 mg Intravenous completed 40 mg, I ntravenous, Once, Mon10/15/20 at 0800, For 1 dose
Notify provider if systolic blood pressure less than: 100 [facility] Medication administered onsite Metoprolol Tartrate 1 MG/ML Injectable S olution metoprolol (LOPRESSOR) injection 5 mg metoprolol (LOPRESSOR) injection 5 mg 10/15/2020 05:45:00 AM EST 5 mg Intravenous completed 5 mg, Intrave nous, Once, Mon10/15/20 at 0545, For 1 dose
Dilute in 25 or 50 mL NS and administer over 30 minutes. If giving IVP, must be administered under the direct supervision of a medical provider and patient on a monitor tech.
[facility] Medication administered onsite Metoprolol Tartrate 1 MG/ML Injectable S olution metoprolol (LOPRESSOR) injection 5 mg metoprolol (LOPRESSOR) injection 5 mg 10/15/2020 04:00:00 AM EST 5 mg Intravenous completed 5 mg, Intrave nous, Once, Mon10/15/20 at 0400, For 1 dose
Dilute in 25 or 50 mL NS and administer over 30 minutes. If giving IVP, must be administered under the direct supervision of a medical provider and patient on a monitor tech.
[facility] Medication administered onsite insulin lispro (HumaLOG) injection LOW DOSE EATING INS ULIN patients 1-8 Units [id number] 10/14/2020 06:00:00 PM EST U Subcutaneous active 1-8 Units, Subcutaneous, Three Times Daily-With Meals, First dose on Mon10/14/20 at 1800, For 30 days
Nursing MUST open the 'SQ Insulin Dosing Charts' Sidebar Report, or, the Patient Summary or Summary Report within the ED.
[facility] Medication administered onsite Acetaminophen 325 MG Oral Tablet acetaminophen (TYLENO L) tablet 650 mg acetaminophen (TYLENOL) tablet 650 mg 10/14/2020 04:15:00 PM EST 65 0 mg Oral active 650 mg, Oral, T hree Times Daily, First dose (after last modification) on Mon10/14/20 at 1615, For 5 days
Maximum daily dose of acetaminophen is 3,000 mg from all sources in 24 hours.
[facility] Medication administered onsite Oxycodone Hydrochloride 5 MG Oral Tablet oxyCODONE (ROXICODONE) immediate release tablet 5 mg oxyCODONE (ROXICODONE) immediate release tablet 5 mg 10/14/2020 03:26:02 PM EST 5 mg Oral completed 5 mg, Oral, Every 4 hours PRN, Moderate Pain (Pain Scale Score 4-6), Severe Pain (Pain Scale Score 7-10), Starting Mon10/14/20 at 1526, For 3 doses
Oxycodone immediate release is limited to 10 mg per dose. Higher doses ( only) require Pain Service consultation and approval.
[facility] Medication administered onsite Furosemide 20 MG Oral Tablet furosemide (LASIX) tablet 20 mg furosemide (LASIX) tablet 20 mg 10/14/2020 03:00:00 PM EST 20 mg Oral abort ed 20 mg, Oral, Daily Standard, First dose on Mon10/14/20 at 1500, For 30 days [facility] Medication administered onsite Losartan Potassium 50 MG Oral Tablet losartan (COZAAR) tablet 100 mg losartan (COZAAR) tablet 100 mg 10/14/2020 02:15:00 PM EST 100 mg Oral aborted 100 mg, Oral, Daily Standard, First dose (after last modification) on Mon10/14/20 at 1415, For 30 days
Check vital signs before administering
[facility] Medication administered onsite Docusate Sodium 100 MG Oral Capsule docusate sodium (C OLACE) capsule 100 mg docusate sodium (COLACE) capsule 100 mg 10/13/2020 09:00:00 PM EST 100 mg Oral aborted 100 mg, Oral, 2 Times Daily, First dose on Mon10/13/20 at 2100, For 30 days [facility] Medication administered onsite Calcium Chloride 0.0014 MEQ/ML / Potassi um Chloride 0.004 MEQ/ML / Sodium Chloride 0.103 MEQ/ML / Sodium Lactate 0.028 MEQ/ML Injectable Solution lactated ringers infusion lactated ringers infusion 10/12/2020 08:00:00 PM EST 50 mL/h Intravenous aborted at 50 mL /hr, Intravenous, Continuous, Starting Mon10/12/20 at 2000, For 30 days [facility] Medication administered onsite TC-99M mebrofenin (CHOLETEC) [address]-2 10/12/2020 12:45:00 PM EST Intravenous completed Intravenous, Once, Mon10/12/20 at 1245, For 1 dose, Imaging Protocol [facility] Medication administered onsite sincalide (KINEVAC) 1 mcg in sodium chloride 0.9 % 25 mL IVP B 10/12/2020 10:15:00 AM EST 1 ug Intravenous completed 1 mcg, Intravenous, Administer over 10 Minutes, Once, Mon10/12/20 at 1015, For 1 dose [facility] Medication administered onsite Piperacillin 3000 MG / tazobactam 375 MG Injection piperacillin-tazobactam (ZOSYN) IVPB 3.375 g (premix) piperacillin-tazobactam (ZOSYN) IVPB 3.3 75 g (premix) 10/12/2020 10:00:00 AM EST 3.375 g Intravenous com pleted 3.375 g, Intravenous, Administer over 4 Hours, Every 12 hours, First dose (after last modification) on Mon10/12/20 at 1000, For 6 doses
Renal dosing per pharmacy from q8hrs to q12hr frequency This specific formulation of piperacillin-tazobactam is compatible with Lactated Ringers.
[facility] Medication administered onsite pantoprazole 40 MG Delayed Release Oral Tablet pantoprazole (PROTONIX) EC tablet 40 mg pantoprazole (PROTONIX) EC tablet 40 mg 10/12/2020 09:00:[address] 40 mg Oral active 40 mg, Ora l, Daily Standard, First dose on Mon10/12/20 at 0900, For 30 days
Do not crush or chew
[facility] Medication administered onsite heparin (porcine) 5000 UNIT/ML injection 5,000 Units [id number] 10/12/2020 09:00:00 AM EST 5000 U Subcutaneous active 5,000 Units, Subcutaneous, Three Times Daily Standard, First dose on Mon10/12/20 at 0900, For 30 days [facility] Medication administered onsite ezetimibe 10 MG Oral Tablet ezetimibe (ZETIA) tablet 1 0 mg ezetimibe (ZETIA) tablet 10 mg 10/12/2020 09:00:00 AM EST 10 mg Oral activ e 10 mg, Oral, Daily Standard, First dose on Mon10/12/20 at 0900, For 30 days [facility] Medication administered onsite carvedilol 12.5 MG Oral Tablet carvedilol (COREG) tabl et 25 mg carvedilol (COREG) tablet 25 mg 10/12/2020 09:00:00 AM EST 25 mg Oral aborted 25 mg, Oral, 2 Times Daily With Meals, First dose on Mon10/12/20 at 0900, For 30 days
Check vital signs before administering
[facility] Medication administered onsite Aspirin 81 MG Chewable Tablet aspirin chewable tablet 81 mg aspirin chewable tablet 81 mg 10/12/2020 09:00:00 AM EST 81 mg Oral activ e 81 mg, Oral, Daily Standard, First dose on Mon10/12/20 at 0900, For 30 days [facility] Medication administered onsite ferrous sulfate 325 MG Delayed Release O ral Tablet ferrous sulfate EC tablet 325 mg ferrous sulfate EC tablet 325 mg 10/12/2020 08:00:00 AM EST 325 mg Oral active 325 mg, Oral, Da carrie with Breakfast, First dose on Mon10/12/20 at 0800, For 30 days [facility] Medication administered onsite Calcium Chloride 0.0014 MEQ/ML / Potassi um Chloride 0.004 MEQ/ML / Sodium Chloride 0.103 MEQ/ML / Sodium Lactate 0.028 MEQ/ML Injectable Solution lactated ringers infusion lactated ringers infusion 10/12/2020 07:45:00 AM EST 200 mL/h Intravenous completed at 200 m L/hr, Intravenous, Continuous, Starting Mon10/12/20 at 0745, For 12 hours [facility] Medication administered onsite Calcium Chloride 0.0014 MEQ/ML / Potassi um Chloride 0.004 MEQ/ML / Sodium Chloride 0.103 MEQ/ML / Sodium Lactate 0.028 MEQ/ML Injectable Solution lactated ringers infusion lactated ringers infusion 10/11/2020 10:15:00 PM EST 200 mL/h Intravenous completed at 200 m L/hr, Intravenous, Continuous, Starting 10/11/20 at 2215, For 12 hours [facility] Medication administered onsite Nitroglycerin 0.4 MG Sublingual Tablet n itroglycerin (NITROSTAT) SL tablet 0.4 mg nitroglycerin (NITROSTAT) SL tablet 0.4 mg 10/11/2020 10:12:14 P M EST 0.4 mg Sublingual active 0.4 mg, S ublingual, Every 5 min PRN, Chest pain, Starting 10/11/20 at 2212, For 30 days [facility] Medication administered onsite insulin lispro (HUMALOG) injection LOW DOSE NPO INSULI N patients 1-5 Units [id number] 10/11/2020 09:00:00 PM EST U Subcutaneous aborted 1-5 Units, Subcutaneous, Every 4 hours, First dose on 10/11/20 at 2100, For 30 days
Nursing MUST open the 'SQ Insulin Dosing Charts' Sidebar Report, or, the Patient Summary or Summary Report within the ED.
[facility] Medication administered onsite lactated ringers bolus 1,000 mL [id number] 10/11/2020 09:00:00 PM EST 1000 mL Intravenous completed 1,000 mL , Intravenous, Once, [place] 10/11/20 at 2100, For 1 dose [facility] Medication administered onsite Metronidazole 5 MG/ML Injectable Solution metroNIDAZOL E (FLAGYL) IVPB 500 mg metroNIDAZOLE (FLAGYL) IVPB 500 mg 10/11/2020 09:00:00 PM EST 50 0 mg Intravenous aborted 500 mg, Intra venous, Administer over 60 Minutes, Every 8 hours, First dose on 10/11/20 at 2100, For 7 days [facility] Medication administered onsite Ceftriaxone 1000 MG Injection cefTRIAXone (ROCEPHIN) I VPB (premix) 1 g cefTRIAXone (ROCEPHIN) IVPB (premix) 1 g 10/11/2020 09:00:00 PM EST 1 g Intravenous aborted 1 g, Intraven ous, at 100 mL/hr, Every 24 hours, First dose on 10/11/20 at 2100, For 7 days
Discouraged Uses: Empiric treatment of post-surgical meningitis (ceftazidime preferred)
[facility] Medication administered onsite Glucose 0.417 MG/MG Oral Gel glucose (GLUTOSE) 40 % or al gel 15 g glucose (GLUTOSE) 40 % oral gel 15 g 10/11/2020 08:55:55 PM EST 15 g Oral active 15 g, Oral, PRN, Low blood s ugar, for gluose 55-69 mg/dl and able to take PO, Starting [place] 10/11/20 at 2054, For 30 days [facility] Medication administered onsite Glucagon 1 MG Injection glucagon (human recombinant) ( GLUCAGEN) injection 1 mg glucagon (human recombinant) (GLUCAGEN) injection 1 mg 10/11/2020 08:55:55 PM EST 1 mg Intramuscular active 1 mg, Intramuscular, PRN, for glucose <55 without IV access, Starting [place] 10/11/20 at 2054, For 30 days [facility] Medication administered onsite dextrose 50 % IV solution 25 mL [id number] 10/11/2020 08:55:[address] 25 mL Intravenous active 25 mL, Intrav enous, PRN, Other, blood glucose <55, Starting [place] 10/11/20 at 2054, For 30 days
Not for midline administration.
[facility] Medication administered onsite pantoprazole 40 MG Delayed Release Oral Tablet Pantoprazole Sodium 40 MG Oral Tablet Delayed Release Pantoprazole Sodium 40 MG Oral Tablet Delayed Release 09/17/2020 12:00:00 AM EST 1 active pantoprazole 40 MG Delayed Release Oral Tablet [place] ([facility]) Nitroglycerin 0.4 MG Sublingual Tablet N itroglycerin 0.4 MG Sublingual Tablet Sublingual Nitroglycerin 0.4 MG Sublingual Tablet Sublingual 11/2020 12:00:00 AM EST active nitroglycerin 0. 4 MG Sublingual Tablet [place] ([facility]) Selenium 200 MCG Oral Tablet Selenium 200 MCG Oral Tablet 12:00:00 AM EST 1 aborted Selenium [place] ([facility]) GNP Zinc 50 MG Oral Tablet GNP Zinc 50 MG Oral Tablet 2020 12:00:00 AM EST 1 aborted GNP Zinc [place] ([facility]) carvedilol 25 MG Oral Tablet Carvedilol 25 MG Oral Tab let Carvedilol 25 MG Oral Tablet 09/17/2020 12:00:00 AM EST 1 active carvedilol 25 MG Oral Tablet [place] ([facility]) OneTouch Ultra In Vitro Strip OneTouch Ultra In Vitro Strip 08/28/2020 12:00:00 AM EST aborted [facility] OneTouch Ultra In Vitro Strip OneTouch Ultra In Vitro Strip 08/28/2020 12:00:00 AM EST active OneTouch Ultra [facility] ezetimibe 10 MG Oral Tablet Ezetimibe 10 MG Oral Table t Ezetimibe 10 MG Oral Tablet 08/04/2020 12:00:00 AM EST 1 active ezetimibe 10 MG Oral Tablet [place] ([facility]) Minoxidil 2.5 MG Oral Tablet Minoxidil 2.5 MG Oral Tablet 12:00:00 AM EST active minoxidil 2.5 MG Oral Tablet [place] ([facility]) Epoetin [place] 4000 UNT/ML Injectable Solu tion [Epogen] Epogen 4000 UNIT/ML Injection Solution Epogen 4000 UNIT/ML Injection Solution 07/22/2020 12:0 0:00 AM EST aborted 1 ML epoetin correction a 4000 UNT/ML Injection [Epogen] [place] ([facility]) decitabine 5 MG/ML Injectable Solution [ Dacogen] Dacogen 50 MG Intravenous Solution Reconstituted Dacogen 50 MG Intravenous Solution Reconstituted 07/22/2020 12:00:00 AM EST aborted decitabine 50 MG Injection [Dacogen] [place] ([facility]) Basaglar KwikPen 100 UNIT/ML Subcutaneous Solution Pen -injector Basaglar KwikPen 100 UNIT/ML Subcutaneous Solution Pen-injector 05/12/2020 12:00:00 AM EDT active Sensor 3 ML insulin glargine 100 UNT/ML Pen Injector [Basaglar] [place] ([facility]) pantoprazole 40 MG Delayed Release Oral Tablet Pantoprazole Sodium 40 MG Oral Tablet Delayed Release Pantoprazole Sodium 40 MG Oral Tablet Delayed Release 04/27/2020 12:00:00 AM EDT 1 aborted pantoprazole 40 MG Delayed Release Oral Tablet [place] ([facility]) Hydrochlorothiazide 12.5 MG / Losartan P otassium 50 MG Oral Tablet Losartan Potassium-HCTZ 50-12.5 MG Oral Tablet Losartan Potassium-HCTZ 50-12.5 MG Oral Tablet 04/27/2020 12:00:00 AM EDT 1 aborted hydrochlorothiazide 12.5 MG / losartan potassium 50 MG Oral Tablet [place] ([facility]) carvedilol 25 MG Oral Tablet Carvedilol 25 MG Oral Tab let Carvedilol 25 MG Oral Tablet 04/27/2020 12:00:00 AM EDT 1 aborted carvedilol 25 MG Oral Tablet [place] ([facility]) Basaglar KwikPen 100 UNIT/ML Subcutaneous Solution Pen -injector Basaglar KwikPen 100 UNIT/ML Subcutaneous Solution Pen-injector 04/03/2020 12:00:00 AM EDT aborted Sensor 3 ML in sulin glargine 100 UNT/ML Pen Injector [Basaglar] [place] ([facility]) Flintstones Gummies Oral Tablet Chewable Flintstones G ummies Oral Tablet Chewable 03/24/2020 12:00:00 AM EDT aborted Flintstones Gummies [place] ([facility]) Epoetin Cameron 4000 UNT/ML Injectable Solu tion [Epogen] Epogen 4000 UNIT/ML Injection Solution Epogen 4000 UNIT/ML Injection Solution 03/24/2020 12:0 0:00 AM EDT aborted 1 ML epoetin darrin a 4000 UNT/ML Injection [Epogen] [place] ([facility]) Epoetin Cameron 95118 UNT/ML Injectable Marycarmen ution [Epogen] Epogen 44438 UNIT/ML Injection Solution Epogen 09460 UNIT/ML Injection Solution 03/24/2020 12: 00:00 AM EDT aborted epoetin cameron 01088 UNT/ML Injectable Solution [Epogen] [place] ([facility]) ezetimibe 10 MG Oral Tablet Ezetimibe 10 MG Oral Table t Ezetimibe 10 MG Oral Tablet 03/24/2020 12:00:00 AM EDT aborted ezetimibe 10 MG Oral Tablet [place] ([facility]) Furosemide 20 MG Oral Tablet [Lasix] Lasix 20 MG Oral Tablet Lasix 20 MG Oral Tablet 03/24/2020 12:00:00 AM EDT 1 aborted furosemide 20 MG Oral Tablet [Lasix] [place] ([facility]) OneTouch Ultra In Vitro Strip OneTouch Ultra In Vitro Strip 03/18/2020 12:00:00 AM EDT aborted [facility] Nitroglycerin 0.4 MG Sublingual Tablet [ Nitrostat] Nitrostat 0.4 MG Sublingual Tablet Sublingual Nitrostat 0.4 MG Sublingual Tablet Sublingual 02/08/20 12:00:00 AM EDT completed nitroglycerin 0.4 MG Sublingual Tablet [Nitrostat] [place] ([facility]) Hydrochlorothiazide 12.5 MG / Losartan P otassium 100 MG Oral Tablet Losartan-Hydrochlorothiazide Losartan-Hydrochlorothiazide 12/16/2019 05:37:37 AM EDT TABLET 1 TAB ORAL completed [facility] Hydrochlorothiazide 12.5 MG / Losartan P otassium 100 MG Oral Tablet Losartan-Hydrochlorothiazide Losartan-Hydrochlorothiazide 12/16/2019 05:37:37 AM EDT TABLET 1 TAB ORAL completed [facility] pantoprazole 40 MG Delayed Release Oral Tablet Pantoprazole Sodium 40 MG Oral Tablet Delayed Release Pantoprazole Sodium 40 MG Oral Tablet Delayed Release 11/08/2019 12:00:00 AM EDT 1 aborted pantoprazole 40 MG Delayed Release Oral Tablet [place] ([facility]) carvedilol 25 MG Oral Tablet Carvedilol 25 MG Oral Tab let Carvedilol 25 MG Oral Tablet 11/08/2019 12:00:00 AM EDT 1 aborted carvedilol 25 MG Oral Tablet [place] ([facility]) Minoxidil 2.5 MG Oral Tablet Minoxidil 2.5 MG Oral Tablet 12:00:00 AM EST 1 aborted minoxidil 2.5 MG Oral Tablet [place] ([facility]) Hydrochlorothiazide 25 MG / Losartan Pot assium 100 MG Oral Tablet Losartan Potassium-HCTZ 100-25 MG Oral Tablet Losartan Potassium-HCTZ 100-25 MG Oral Tablet 05/17/2019 12:00:00 AM EDT 1 aborted hydrochlorothiazide 25 MG / losartan potassium 100 MG Oral Tablet [place] ([facility]) Nystatin 100 UNT/MG Topical Powder Nystatin [id number] /GM External Powder Nystatin [id number]/GM External Powder 01/10/2019 12:00:00 AM EDT 1 aborted nystatin 100 UNT/MG Topical Powd er [place] ([facility]) Insulin Glargine Insulin Glargine (Basag lar Kwikpen U-100) 100 UNIT/ML (3 ML) insulin pen Insulin Glargine (Basaglar Kwikpen U-100 ) 100 UNIT/ML (3 ML) insulin pen 12/13/2017 06:43:00 AM EDT UNASSIGNED 100 UNIT SUB-Q completed [place] [employer] Insulin Glargine Insulin Glargine (Basag lar Kwikpen U-100) 100 UNIT/ML (3 ML) insulin pen Insulin Glargine (Basaglar Kwikpen U-100 ) 100 UNIT/ML (3 ML) insulin pen 12/13/2017 06:43:00 AM EDT UNASSIGNED 100 UNIT [facility] Sure Comfort Pen [place] 31G X 8 MM Miscellaneous Sure Comfort Pen [place] 31G X 8 MM Miscellaneous 03/10/2017 12:00:00 AM EDT aborted Sure Comfort Pen [place] [facility] Ascorbic Acid 60 MG / Beta Carotene 5000 UNT / Copper Sulfate 40 MG / dl-alpha tocopheryl acetate 30 UNT / Sodium Selenite 0.04 MG / Zinc Oxide 40 MG Oral Tablet Multiple Vitamins-Iron (MULTIVITAMIN WITH IRON) TABS Multiple Vitamins- Iron (MULTIVITAMIN WITH IRON) TABS 06/10/2016 12:00:00 AM EDT 2 {tbl} Oral aborted Take 2 tablets by mouth catia y [facility] Aspirin 81 MG Delayed Release Oral Tablet aspirin EC 8 1 MG EC tablet aspirin EC 81 MG EC tablet 06/09/2016 12:00:00 AM EDT 81 mg Oral ab orted Take 1 tablet (81 mg total) by mouth daily MAY RESTART IN TEN DAYS AFTER DISCHARGE [facility] 200 ACTUAT Albuterol 0.09 MG/ACTUAT [place] red Dose Inhaler [ProAir] ProAir HFA 108 (90 Base) MCG/ACT Aerosol Solution ProAir HFA 108 (90 Base) MCG/ACT Aerosol Solution 05/29/2015 12:00:00 AM EDT aborted [id number] ACTUAT albuterol 0.09 MG/ACTUAT Metered Dose Inhaler [ProAir] [place] [facility] albuterol (PROVENTIL HFA;VENTOLIN HFA) 108 (90 Base) M CG/ACT inhaler [id number] 2 {puff} Inhalation aborted Inhale 2 puffs every 4 (four) hours as needed for wheezing [facility] Losartan Potassium 25 MG Oral Tablet losartan (COZAAR) 25 MG tablet losartan (COZAAR) 25 MG tablet 25 mg Oral aborted Ta ke 25 mg by mouth daily [facility] carvedilol 25 MG Oral Tablet carvedilol (COREG) 25 MG tablet carvedilol (COREG) 25 MG tablet 25 mg Oral aborted Ran e 25 mg by mouth Two times daily with meals [facility] Insulin Glargine 100 UNT/ML Injectable S olution insulin glargine (INSULIN GLARGINE) 100 UNIT/ML injection insulin glargine (INSULIN GLARGINE) 100 UNIT/ML injection U Subcutaneous aborted Inject 20-30 Units under the skin nightly [facility] Hydrochlorothiazide 12.5 MG / Losartan P otassium 100 MG Oral Tablet Losartan Potassium-HCTZ 100-12.5 MG Oral Tablet (HYZAAR) Losartan Potassium-HCTZ 100-12.5 MG Oral Tablet (HYZAAR) 1 {tbl} Oral aborted Take 1 tablet by mouth daily [facility] Insurance Providers Payer name Policy type / Coverage type Policy ID Covered green party ID Covered green party's relationship to villa Policy [place] Plan Information [facility] 2 [id number] EXC PLANS 1 [id number] [facility] [id number] [facility] [id number] SP [id number] AARP HE[employer]CARE OPTIONS [id number] SP [id number] MEDICARE [id number] SP [id number] A MEDICARE A [id number] Self [id number] N25 MEDICARE [id number] SP [id number] A MEDICARE [id number] SP [id number] Medicare Part A of [place] Other 0 [id number] Self 0 Medicare [place] Other 0 [id number] Self 0 Medicare [place] Other 0 [id number] Self 0 Medicare [place] Other 0 [id number] Self 0 Medicare [place] Other 0 [id number] Self 0 Medicare [place] Other 0 [id number] Self 0 Medicare [place] Other 0 [id number] Self 0 Medicare [place] Other 0 [id number] Self 0 Medicare Part [place] Other 0 [id number] Self 0 Medicare Part [place] Other 0 [id number] Self 0 Medicare Part [place] Other 0 [id number] Self 0 Medicare [place] Other 0 [id number] Self 0 Medicare Part [place] Other 0 [id number] Self 0 Medicare Part B [place] [facility] [id number] 0 [id number] Medicare Part [place] Other 0 [id number] Self 0 Medicare Part [place] Other 0 [id number] Self 0 Medicare [place] Other 0 [id number] Self 0 Medicare Part [place] Other 0 [id number] Self 0 Medicare Part [place] Other 0 [id number] Self 0 Medicare [place] Other 0 [id number] Self 0 Medicare [place] Other 0 [id number] Self 0 Medicare [place] Other 0 [id number] Self 0 Medicare [place] Other 0 [id number] Self 0 Medicare [place] Other 0 [id number] Self 0 Medicare [place] Other 0 [id number] Self 0 Medicare Part [place] Other 0 [id number] Self 0 Medicare Part [place] Other 0 [id number] Self 0 Medicare Part [place] Other 0 [id number] Self 0 Medicare [place] Other 0 [id number] Self 0 Medicare [place] Other 0 [id number] Self 0 Medicare Part [place] Other 0 [id number] Self 0 Medicare [place] Other 0 [id number] Self 0 Medicare Part [place] Other 0 [id number] Self 0 MEDICARE [id number] SP [id number] A Medicare Part [place] Other 0 [id number] Self 0 Medicare Part [place] Other 0 [id number] Self 0 Medicare Part B Medicare Primary [id number] Self [id number] Medicare Part B Medicare Primary [id number] Self [id number] Medicare Part [place] Other 0 [id number] Self 0 Medicare Part [place] Other 0 [id number] Self 0 Medicare Medigap Part B [id number] Self Medicare Part [place] Other 0 [id number] Self 0 Medicare Part [place] Other 0 [id number] Self 0 Medicare Part [place] Other 0 [id number] Self 0 Medicare Part [place] Other 0 [id number] Self 0 Medicare Part A [place] Other [id number] Self [facility] MEDICARE [id number] SP [id number] [facility] MEDICARE SOLUTIO 11 [id number] 1 [id number] BLUE CROSS [id number] SP [id number] [facility] MEDICARE SOLUTIO 11 XXX 1 XXX BLUE CROSS [id number] SP [id number] BC EXC PLANS 1 [id number] BC EXC PLANS 1 [id number] [employer] [place] Commercial [id number] Family Dependent [employer] OPTIONS [id number] SP [id number] [facility] Medigap Part B [id number] Self [id number] [employer] OPTIONS [id number] SP [id number] AARP U [id number] Self [id number] [facility] [id number] [place] [id number] [facility] [id number] [employer] OPTIONS [id number] SP [id number] [facility] [id number] [employer] OPTIONS [id number] SP [id number] [employer] [id number] SP [id number] MEDICARE [id number] SP [id number] N25 [employer] OPT[employer] [id number] SP [id number] [employer] [id number] SP [id number] MEDICARE [id number] SP [id number] [id number] SELF PAY [employer] OPTIONS [id number] SP [id number] MEDICARE [id number] SP [id number] N25 SELF PAY [employer] OPTIONS [id number] SP [id number] SELF PAY [employer] OPTIONS [id number] SP [id number] MEDICARE [id number] SP [id number] N25 SELF PAY MEDICARE [id number] SP [id number] N25 [employer] OPTIONS [id number] SP [id number] SELF PAY [employer] OPTIONS [id number] SP [id number] MEDICARE [id number] SP [id number] N25 [employer] OPTIONS [id number] SP [id number] MEDICARE [id number] SP [id number] N25 SELF PAY MEDICARE [id number] SP [id number] N25 [employer] OPT[employer] [id number] SP [id number] [employer] [id number] SP [id number] MEDICARE [id number] SP [id number] N25 SELF PAY MEDICARE [id number] SP [id number] N25 [employer] OPTIONS [id number] SP [id number] SELF PAY SELF PAY [employer] OPTIONS [id number] SP [id number] MEDICARE [id number] SP [id number] N25 MEDICARE [id number] SP [id number] N25 [employer] OPTIONS [id number] SP [id number] SELF PAY INSURANCE COVID-19 COVID [place] OV[place] INSURANCE COVID-19 [id number] INSURANCE COVID-19 COVID [place] OVID [employer] [id number] Self [id number] [facility] Medicare Medicare Part B [id number] Self [id number] SELF PAY MEDICARE [id number] SP [id number] A AARP O [id number] S [id number] MEDICARE C [id number] S [id number] A [facility] Medigap Part B [id number] Self Medicare Natl Gov't Servi Medicare Primary [id number] Self [employer] OPTIONS [id number] SP [id number] [employer] [id number] Self [facility] Medigap Part B [id number] Self MEDICARE [id number] SELF PAY 2 UNAVAILABLE 1 UNAVAILA BLE MEDICARE [id number] [place] [id number] N25 [employer] OPTIONS [id number] SP [id number] Medicare Natl Gov't Servi Medicare Primary [id number] Self [id number] [id number] SELF PAY UNAVAILABLE SP UNAVAILA BLE MEDICARE [id number] SP [id number] [id number] BC EXC PLANS 1 [id number] [facility] Medigap Part B [id number] Self [id number] Medicare [place] Primary [id number] Self [id number] [facility] Medigap Part B [id number] Self [id number] Medicare Natl Gov't Servi Medicare Primary [id number] Self [id number] [facility] Medigap Part B [id number] Self [id number] [facility] Medigap Part B [id number] Self [id number] Medicare [place] Medicare Primary [id number] Self [id number] Medicare Natl Gov't Servi Medicare Primary [id number] Self [id number] [facility] Medigap Part B [id number] Self [id number] [place] Primary [id number] Self [id number] [facility] Medigap Part B [id number] Self [id number] MEDICARE PART A -O/P [id number] 18 [id number] [facility] Medigap Part B [id number] Self [id number] Medicare [place] Medicare Primary [id number] Self [id number] [facility] Medigap Part B [id number] Self [id number] Medicare Natl Gov't Servi Medicare Primary [id number] Self [id number] MEDICARE [id number] [place] [id number] A MEDICARE PI PI [facility] PI PI Problems, Conditions, and Diagnoses Code Display Name Description Problem Type Effective Dates Data Source(s) Z99.2 Dependence on renal dialysis Dependence on renal dialy sis Diagnosis 04/09/2021 11:26:00 AM EDT [facility] N18.6 End stage renal disease End stage renal disease Diagno sis 04/09/2021 11:26:00 AM EDT [facility] U07.1 COVID-19 COVID-19 Diagnosis 04/05/2021 08:45:37 AM ED T [facility] E11.9 Type 2 diabetes mellitus without complic ations E11.9 - Type 2 diabetes mellitus without complications Diagnosis 12/24/2020 10:07:00 PM EDT [facility] E08.8 Diabetes mellitus due to und erlying condition with unspecified complications E08.8 - Diabetes mellitus due to underly ing condition with unspecified complications Diagnosis 12/24/2020 10:07:00 PM EDT [facility] K81.9 Cholecystitis, unspecified Cholecystitis, unspecified Diagnosis 12/15/2020 10:35:12 AM EDT [facility] I73.9 Peripheral vascular disease, unspecified I73.9 - Peripheral vascular disease, unspecified Diagnosis 11/25/2020 12:32:00 PM EDT [facility] N18.4 Chronic kidney disease, stage 4 (severe) N18.4 - Chronic kidney disease, stage 4 (severe) Diagnosis 11/25/2020 12:32:00 PM EDT [facility] E11.9 Type 2 diabetes mellitus without complic ations E11.9 - Type 2 diabetes mellitus without complications Diagnosis 11/25/2020 12:32:00 PM EDT [facility] E78.5 Hyperlipidemia, unspecified E78.5 - Hyperlipidemia, un specified Diagnosis 11/25/2020 12:32:00 PM EDT [facility] I50.30 Unspecified diastolic (congestive) heart failure I50.30 - Unspecified diastolic (congestive) heart failure Diagnosis 11/25/2020 12:32:00 PM EDT [facility] I10 Essential (primary) hypertension I10 - Essential (primary) hypertension Diagnosis 11/25/2020 12:32:00 PM EDT [facility] PA[facility] Matthews Z95.1 Presence of aortocoronary bypass graft Z 95.1 - Presence of aortocoronary bypass graft Diagnosis 11/25/2020 12:32:00 PM EDT [facility] Esperanza weiss, PAWEL Z98.62 Peripheral vascular angioplasty status Z 98.62 - Peripheral vascular angioplasty status Diagnosis 11/25/2020 12:32:00 PM EDT [facility] PA[facility] Brewer I25.10 Atherosclerotic heart diseas e of [place] coronary artery without angina pectoris I25.10 - Atherosclerotic heart disease o f [place] coronary artery without angina pectoris Diagnosis 11/25/2020 12:32:00 PM EDT [facility] PAWEL Croft N18.31 Chronic kidney disease, stage 3a Chronic kidney disease, stage 3a Diagnosis 10/11/2020 08:10:14 PM [facility] N17.9 Acute kidney failure, unspecified Acute kidney f ailure, unspecified Diagnosis 10/11/2020 08:10:14 PM [facility] K85.10 Biliary acute pancreatitis without necro sis or infection Biliary acute pancreatitis without necrosis or infection Diagnosis 10/11/2020 05:32: 00 PM [facility] cholethiasis, RUQ paind, dilated CBD cholethiasi s, RUQ paind, dilated CBD Diagnosis 10/11/2020 05:32:00 PM [facility] J44.9 COPD (chronic obstructive pulmonary dise ase) COPD (chronic obstructive pulmonary disease) [id number] 04/07/2021 12:00:00 AM EDT [facility] I25.10 Coronary artery disease Coronary artery disease 444920 04/07/2021 12:00:00 AM EDT [facility] K21.9 GERD (gastroesophageal reflux disease) G ERD (gastroesophageal reflux disease) [id number] 04/07/2021 12:00:00 AM EDT [facility] E78.5 Hyperlipidemia Hyperlipidemia [id number] 04/07/2021 12:00: 00 AM EDT [facility] M19.90 Osteoarthritis Osteoarthritis 13064444 04/07/2021 12:00: 00 AM EDT [facility] E11.9 Diabetes mellitus type 2, insulin depend ent Diabetes mellitus type 2, insulin dependent [id number] 04/07/2021 12:00:00 AM EDT [facility] N18.6 End stage renal disease on dialysis End stage re nal disease on dialysis [id number] 04/07/2021 12:00:00 AM EDT [facility] 586 Renal Failure Renal Failure Problem 01/16/2021 09:11:00 AM EDT [facility] ([facility]) 586 Renal Failure Renal Failure Problem 01/16/2021 09:11:00 AM EDT [facility] ([facility]) 586 Renal Failure Renal Failure Problem 01/16/2021 09:11:00 AM EDT [facility] ([facility]) 586 Renal Failure Renal Failure Problem 01/16/2021 09:11:00 AM EDT [facility] ([facility]) 586 Renal Failure Renal Failure Problem 01/16/2021 09:11:00 AM EDT [facility] ([facility]) 780.79 Feeling Weak Feeling Weak Finding 12/24/2020 11:56:00 A M EDT [place] ([facility]) 780.79 Feeling Weak Feeling Weak Finding 12/24/2020 11:56:00 A M EDT [place] ([facility]) 780.79 Feeling Weak Feeling Weak Finding 12/24/2020 11:56:00 A M EDT [facility] ([facility]) 780.79 Feeling Weak Feeling Weak Finding 12/24/2020 11:56:00 A M EDT [facility] ([facility]) 780.79 Feeling Weak Feeling Weak Finding 12/24/2020 11:56:00 A M EDT [facility] ([facility]) 780.79 Feeling Weak Feeling Weak Finding 12/24/2020 11:56:00 A M EDT [facility] ([facility]) 780.79 Feeling Weak Feeling Weak Finding 12/24/2020 11:56:00 A M EDT [facility] ([facility]) 780.79 Feeling Weak Feeling Weak Finding 12/24/2020 11:56:00 A M EDT [place] ([facility]) 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 Problem 10/25/2020 10:47:00 AM EDT [place] ([facility]) 584.5 Acute Kidney Failure Due To Tubular Necr osis Acute Kidney Failure Due To Tubular Necrosis Problem 10/25/2020 10:47:00 AM EDT [place] ([facility]) 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 Problem 10/25/2020 10:47:00 AM EDT [facility] 584.5 Acute Kidney Failure Due To Tubular Necr osis Acute Kidney Failure Due To Tubular Necrosis Problem 10/25/2020 10:47:00 AM EDT [place] ([facility]) 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 Problem 10/25/2020 10:47:00 AM EDT [facility] 584.5 Acute Kidney Failure Due To Tubular Necr osis Acute Kidney Failure Due To Tubular Necrosis Problem 10/25/2020 10:47:00 AM EDT [place] ([facility]) 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 Problem 10/25/2020 10:47:00 AM EDT [facility] [facility] 584.5 Acute Kidney Failure Due To Tubular Necr osis Acute Kidney Failure Due To Tubular Necrosis Problem 10/25/2020 10:47:00 AM EDT [place] ([facility]) 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 Problem 10/25/2020 10:47:00 AM EDT [facility] [facility] 584.5 Acute Kidney Failure Due To Tubular Necr osis Acute Kidney Failure Due To Tubular Necrosis Problem 10/25/2020 10:47:00 AM EDT [place] ([facility]) 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 Problem 10/25/2020 10:47:00 AM EDT [place] ([facility]) 584.5 Acute Kidney Failure Due To Tubular Necr osis Acute Kidney Failure Due To Tubular Necrosis Problem 10/25/2020 10:47:00 AM EDT [place] ([facility]) 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 Problem 10/25/2020 10:47:00 AM EDT [place] ([facility]) 584.5 Acute Kidney Failure Due To Tubular Necr osis Acute Kidney Failure Due To Tubular Necrosis Problem 10/25/2020 10:47:00 AM EDT [facility] ([facility]) 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 Problem 10/25/2020 10:47:00 AM EDT [place] ([facility]) 584.5 Acute Kidney Failure Due To Tubular Necr osis Acute Kidney Failure Due To Tubular Necrosis Problem 10/25/2020 10:47:00 AM EDT [facility] ([facility]) 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 Problem 10/25/2020 10:47:00 AM EDT [place] ([facility]) 584.5 Acute Kidney Failure Due To Tubular Necr osis Acute Kidney Failure Due To Tubular Necrosis Problem 10/25/2020 10:47:00 AM EDT [facility] ([facility]) A04.72 Clostridium Difficile Clostridium Difficile Problem 10/19/2020 04:59:00 PM EST [place] ([facility]) A04.72 Clostridium Difficile Clostridium Difficile Problem 10/19/2020 04:59:00 PM EST [place] ([facility]) A04.72 Clostridium Difficile Clostridium Difficile Problem 10/19/2020 04:59:00 PM EST [facility] ([facility]) A04.72 Clostridium Difficile Clostridium Difficile Problem 10/19/2020 04:59:00 PM EST [place] ([facility]) A04.72 Clostridium Difficile Clostridium Difficile Problem 10/19/2020 04:59:00 PM EST [facility] ([facility]) A04.72 Clostridium Difficile Clostridium Difficile Problem 10/19/2020 04:59:00 PM EST [facility] ([facility]) A04.72 Clostridium Difficile Clostridium Difficile Problem 10/19/2020 04:59:00 PM EST [facility] ([facility]) A04.72 Clostridium Difficile Clostridium Difficile Problem 10/19/2020 04:59:00 PM EST [facility] ([facility]) A04.72 Clostridium Difficile Clostridium Difficile Problem 10/19/2020 04:59:00 PM EST [place] ([facility]) A04.72 Clostridium Difficile Clostridium Difficile Problem 10/19/2020 04:59:00 PM EST [place] ([facility]) 427.31 Atrial Fibrillation with Rapid Ventricul ar Response Atrial Fibrillation with Rapid Ventricular Response Problem 10/19/2020 04:58:00 PM EST [facility] ([facility]) K85.12 Acute Pancreatitis Due To Gallstones Acu te Pancreatitis Due To Gallstones Problem 10/19/2020 04:58:00 PM EST [facility] 427.31 Atrial Fibrillation with Rapid Ventricul ar Response Atrial Fibrillation with Rapid Ventricular Response Problem 10/19/2020 04:58:00 PM EST [facility] ([facility]) K85.12 Acute Pancreatitis Due To Gallstones Acu te Pancreatitis Due To Gallstones Problem 10/19/2020 04:58:00 PM EST [place] ([facility]) 427.31 Atrial Fibrillation with Rapid Ventricul ar Response Atrial Fibrillation with Rapid Ventricular Response Problem 10/19/2020 04:58:00 PM EST [facility] ([facility]) K85.12 Acute Pancreatitis Due To Gallstones Acu te Pancreatitis Due To Gallstones Problem 10/19/2020 04:58:00 PM EST [place] ([facility]) 427.31 Atrial Fibrillation with Rapid Ventricul ar Response Atrial Fibrillation with Rapid Ventricular Response Problem 10/19/2020 04:58:00 PM EST [facility] ([facility]) K85.12 Acute Pancreatitis Due To Gallstones Acu te Pancreatitis Due To Gallstones Problem 10/19/2020 04:58:00 PM EST [place] ([facility]) 427.31 Atrial Fibrillation with Rapid Ventricul ar Response Atrial Fibrillation with Rapid Ventricular Response Problem 10/19/2020 04:58:00 PM EST [facility] ([facility]) K85.12 Acute Pancreatitis Due To Gallstones Acu te Pancreatitis Due To Gallstones Problem 10/19/2020 04:58:00 PM EST [facility] ([facility]) 427.31 Atrial Fibrillation with Rapid Ventricul ar Response Atrial Fibrillation with Rapid Ventricular Response Problem 10/19/2020 04:58:00 PM EST [facility] ([facility]) K85.12 Acute Pancreatitis Due To Gallstones Acu te Pancreatitis Due To Gallstones Problem 10/19/2020 04:58:00 PM EST [place] ([facility]) 427.31 Atrial Fibrillation with Rapid Ventricul ar Response Atrial Fibrillation with Rapid Ventricular Response Problem 10/19/2020 04:58:00 PM EST [facility] ([facility]) K85.12 Acute Pancreatitis Due To Gallstones Acu te Pancreatitis Due To Gallstones Problem 10/19/2020 04:58:00 PM EST [place] ([facility]) 427.31 Atrial Fibrillation with Rapid Ventricul ar Response Atrial Fibrillation with Rapid Ventricular Response Problem 10/19/2020 04:58:00 PM EST [facility] ([facility]) K85.12 Acute Pancreatitis Due To Gallstones Acu te Pancreatitis Due To Gallstones Problem 10/19/2020 04:58:00 PM EST [facility] ([facility]) 427.31 Atrial Fibrillation with Rapid Ventricul ar Response Atrial Fibrillation with Rapid Ventricular Response Problem 10/19/2020 04:58:00 PM EST [facility] ([facility]) K85.12 Acute Pancreatitis Due To Gallstones Acu te Pancreatitis Due To Gallstones Problem 10/19/2020 04:58:00 PM EST [facility] ([facility]) 427.31 Atrial Fibrillation with Rapid Ventricul ar Response Atrial Fibrillation with Rapid Ventricular Response Problem 10/19/2020 04:58:00 PM EST [facility] ([facility]) 44123 Acute Pancreatitis Due To Gallstones Acute Pancr eatitis Due To Gallstones Problem 10/19/2020 04:58:00 PM EST [place] ([facility]) 575.0 Acute Cholecystitis Acute Cholecystitis Problem 0 10/19/2020 04:57:00 PM EST [place] ([facility]) 575.0 Acute Cholecystitis Acute Cholecystitis Problem 0 10/19/2020 04:57:00 PM EST [facility] ([facility]) 575.0 Acute Cholecystitis Acute Cholecystitis Problem 0 10/19/2020 04:57:00 PM EST [facility] [facility] 575.0 Acute Cholecystitis Acute Cholecystitis Problem 0 10/19/2020 04:57:00 PM EST [place] ([facility]) 575.0 Acute Cholecystitis Acute Cholecystitis Problem 0 10/19/2020 04:57:00 PM EST [place] ([facility]) 575.0 Acute Cholecystitis Acute Cholecystitis Problem 0 10/19/2020 04:57:00 PM EST [facility] ([facility]) 575.0 Acute Cholecystitis Acute Cholecystitis Problem 0 10/19/2020 04:57:00 PM EST [facility] ([facility]) 575.0 Acute Cholecystitis Acute Cholecystitis Problem 0 10/19/2020 04:57:00 PM EST [facility] ([facility]) 575.0 Acute Cholecystitis Acute Cholecystitis Problem 0 10/19/2020 04:57:00 PM EST [facility] ([facility]) 575.0 Acute Cholecystitis Acute Cholecystitis Problem 0 10/19/2020 04:57:00 PM EST [place] ([facility]) [id number] Jqmxk-Odyafmrof-Ofxql pattern Bcwff-Pgsrswwmd-Aaghf pa ttern Problem 10/11/2020 12:00:00 AM EST [facility] ([facility]) [id number] Insulin treated type 2 diabetes mellitus Insulin treated type 2 diabetes mellitus Problem 10/11/2020 12:00:00 AM EST [facility] ([facility] [id number] Hyperlipidemia Hyperlipidemia Problem 10/11/2020 12:00: 00 AM EST [facility] ([facility]) [id number] Gastroesophageal reflux disease Gastroesophageal reflux disease Problem 10/11/2020 12:00:00 AM EST [facility] ([facility]) [id number] Gallstone acute pancreatitis Gallstone acute pancreati tis Problem 10/11/2020 12:00:00 AM EST [facility] ([facility]) [id number] Chronic diastolic heart failure Chronic diastoli c heart failure Problem 10/11/2020 12:00:00 AM EST [facility] ([facility]) [id number] Arteriosclerosis of coronary artery bypa ss graft Arteriosclerosis of coronary artery bypass graft Problem 10/11/2020 12:00:00 AM EST [facility] ([facility]) 340799443 Hulcs-pz-krbarfw renal failure Bgfvl-ij-snrbnwa renal failure Problem 10/11/2020 12:00:00 AM EST [facility] ([facility]) B97.29 Coronavirus Covid-19 Infection Coronavirus Covid-19 In fection Problem 09/17/2020 11:07:00 AM EST [place] ([facility]) B97.29 Coronavirus Covid-19 Infection Coronavirus Covid-19 In fection Problem 09/17/2020 11:07:00 AM EST [place] ([facility]) B97.29 Coronavirus Covid-19 Infection Coronavirus Covid-19 In fection Problem 09/17/2020 11:07:00 AM EST [facility] ([facility]) B97.29 Coronavirus Covid-19 Infection Coronavirus Covid-19 In fection Problem 09/17/2020 11:07:00 AM EST [place] ([facility]) B97.29 Coronavirus Covid-19 Infection Coronavirus Covid-19 In fection Problem 09/17/2020 11:07:00 AM EST [place] ([facility]) B97.29 Coronavirus Covid-19 Infection Coronavirus Covid-19 In fection Problem 09/17/2020 11:07:00 AM EST [place] ([facility]) B97.29 Coronavirus Covid-19 Infection Coronavirus Covid-19 In fection Problem 09/17/2020 11:07:00 AM EST [place] ([facility]) B97.29 Coronavirus Covid-19 Infection Coronavirus Covid-19 In fection Problem 09/17/2020 11:07:00 AM EST [place] ([facility]) B97.29 Coronavirus Covid-19 Infection Coronavirus Covid-19 In fection Problem 09/17/2020 11:07:00 AM EST [place] ([facility]) B97.29 Coronavirus Covid-19 Infection Coronavirus Covid-19 In fection Problem 09/17/2020 11:07:00 AM EST [place] ([facility]) Surgeries/Procedures Procedure Description Date Indications Data Source(s) Summary provided electronically in CCDA format & reasonable certainty of receipt 04/26/2021 12:00:00 AM EDT - 04/26/2021 12:00:00 AM EDT [facility] Clinical summary provided to patient 12:00:00 AM EDT - 04/26/2021 12:00:00 AM EDT [facility] medical regimen review 04/26/2021 12:00: 00 AM EDT - 04/26/2021 12:00:00 AM EDT [place] ([facility]) continue current medication except where otherwise noted 04/26/2021 12:00:00 AM EDT - 04/26/2021 12:00:00 AM EDT [place] ([facility]) Hemoglobin; Glycated A1c Hemoglobin; Glycated A1c 04/26/2021 12:00: 00 AM EDT [place] ([facility]) Tdap, Tetanus, Diphtheria Toxoids and Acellular Pertus sis Va Tdap, Tetanus, Diphtheria Toxoids and Acellular Pertussis Va 04/26/2021 12:00:00 AM EDT [place] ([facility]) GLUC BLD GLUC MNTR DEV CLEARED FDA SPEC HOME USE <td>P OCT GLUCOSE</td><td>Routine</td><td>04/09/2021 6:16 PM EDT</td><td></td><td> </td> 04/09/2021 06:16:00 PM EDT [facility] POC GLUCOSE <td>POC GLUCOSE</td><td>Rout ine</td><td>04/09/2021 12:42 PM EDT</td><td></td><td> </td> 04/09/2021 12:42:00 PM EDT [facility] POCT POTASSIUM <td>POCT POTASSIUM</td><td>R outine</td><td>04/09/2021 12:42 PM EDT</td><td></td><td> </td> 04/09/2021 12:42:00 PM EDT [facility] BLOOD COUNT HEMATOCRIT <td>POCT HEMATOCRIT</td><td> Routine</td><td>04/09/2021 12:42 PM EDT</td><td></td><td> </td> 04/09/2021 12:42:00 PM EDT [facility] GLUC BLD GLUC MNTR DEV CLEARED FDA SPEC HOME USE <td>P OCT GLUCOSE</td><td>Routine</td><td>04/09/2021 12:17 PM EDT</td><td></td><td> </td> 04/09/2021 12:17:00 PM EDT [facility] Anastomosis Arteriovenous Direct Any Site 04/09/2021 1 2:00:00 AM EDT [facility] ([facility]) ECG ROUTINE ECG W/LEAST 12 LDS TRCG ONLY W/O I&R <td>E CG 12- LEAD</td><td>Routine</td><td>04/05/2021 10:37 AM EDT</td><td> End stage renal disease</td><td></td> 04/05/2021 10:37:32 AM EDT End stage renal disease [facility] End stage renal disease BLOOD COUNT COMPLETE AUTOMATED <td>CBC</td><td>Routine </td><td>04/05/2021 10:30 AM EDT</td><td> End stage renal disease</td><td> </td> 04/05/2021 10:30:00 AM EDT End stage renal disease [facility] End stage renal disease HEMOGLOBIN GLYCOSYLATED A1C <td>HEMOGLOBIN A1C</td><td>Routine</td><td>04/05/2021 10:30 AM EDT</td><td> End stage renal disease</td><td> </td> 04/05/2021 10:30:00 AM EDT End stage renal disease [facility] End stage renal disease BASIC METABOLIC PANEL CALCIUM TOTAL <td>BASIC METABOLI C PANEL</td><td>Routine</td><td>04/05/2021 10:30 AM EDT</td><td> End stage renal disease</td><td> </td> 04/05/2021 10:30:00 AM EDT End stage renal disease [facility] End stage renal disease 2019 NCOV AMPLIFIED <td>2019 NCOV AMPLIFIED</td> <td>STAT</td><td>04/05/2021 8:55 AM EDT</td><td> COVID-19</td><td> </td> 04/05/2021 08:55:00 AM EDT COVID-19 [facility] COVID-19 DUPLEX SCAN EXTRACRANIAL ART COMPL BI STUDY 02/01/2021 12:00:00 AM EDT [facility] ([facility]) Summary provided electronically in CCDA format & reasonable certainty of receipt 01/20/2021 12:00:00 AM EDT - 01/20/2021 12:00:00 AM EDT [place] ([facility]) Alcohol consumption screening (procedure) 12/24/2020 12:00:00 AM EDT - 12/24/2020 12:00:00 AM EDT [place] ([facility]) Drug of abuse screen (procedure) 021 12:00:00 AM EDT - 12/24/2020 12:00:00 AM EDT [place] ([facility]) Summary provided electronically in CCDA format & reasonable certainty of receipt 12/24/2020 12:00:00 AM EDT - 12/24/2020 12:00:00 AM EDT [place] ([facility]) drug and/or alcohol abuse structured scr eening and brief intervention 12/24/2020 : Prescreening Completed - No Further Screening Indicated 12/24/2020 12:00:00 AM EDT - 12/24/2020 12:00:00 AM EDT [facility] ([facility] records management 12/24/2020 - Chart Prep Performed 12/24/2020 12:00:00 AM EDT - 12/24/2020 12:00:00 AM EDT [place] ([facility] ) IR PERCUTANEOUS CHOLECYSTOSTOMY TUBE INSERTION <td>IR PERCUTANEOUS CHOLECYSTOSTOMY TUBE INSERTION</td><td>Routine</td><td>12/15/2020 11:10 AM EDT</td><td> Cholecystitis</td><td></td> 12/15/2020 11:10:00 AM EDT Cholecystitis [facility] Cholecystitis Summary provided electronically in CCDA format & reasonable certainty of receipt 10/27/2020 12:00:00 AM EDT - 10/27/2020 12:00:00 AM EDT [place] ([facility]) Clinical summary provided to patient 12:00:00 AM EDT - 10/27/2020 12:00:00 AM EDT [place] ([facility]) medical regimen review 10/27/2020 12:00: 00 AM EDT - 10/27/2020 12:00:00 AM EDT [place] ([facility]) continue current medication except where otherwise noted 10/27/2020 12:00:00 AM EDT - 10/27/2020 12:00:00 AM EDT [facility] POCT GLUCOSE, DOCKED <td>POCT GLUCOSE, DOCKED</td ><td>Routine</td><td>10/18/2020 12:31 PM EST</td><td></td><td> </td> 10/18/2020 12:31:00 PM [facility] POCT GLUCOSE, DOCKED <td>POCT GLUCOSE, DOCKED</td ><td>Routine</td><td>10/18/2020 8:45 AM EST</td><td></td><td> </td> 10/18/2020 08:45:00 AM [facility] BLOOD COUNT COMPLETE AUTO&AUTO DIFRNTL WBC COUNT <td>C BC AND DIFFERENTIAL</td><td>Routine</td><td>10/18/2020 3:52 AM EST</td><td></td><td> </td> 10/18/2020 03:52:00 AM [facility] MAGNESIUM <td>MAGNESIUM LEVEL</td><td> Routine</td><td>10/18/2020 3:52 AM EST</td><td></td><td> </td> 10/18/2020 03:52:00 AM [facility] HEPATIC FUNCTION PANEL <td>HEPATIC FUNCTION PANEL A</td><td>Routine</td><td>10/18/2020 3:52 AM EST</td><td></td><td> </td> 10/18/2020 03:52:00 AM [facility] BASIC METABOLIC PANEL CALCIUM TOTAL <td>BASIC METABOLI C PANEL</td><td>Routine</td><td>10/18/2020 3:52 AM EST</td><td></td><td> </td> 10/18/2020 03:52:00 AM [facility] GLUCOSE QUANTITATIVE BLOOD XCPT REAGENT STRIP <td>POCT GLUCOSE, DOCKED</td><td>Routine</td><td>10/17/2020 9:32 PM EST</td><td></td><td> </td> 10/17/2020 09:32:00 PM [facility] GLUCOSE QUANTITATIVE BLOOD XCPT REAGENT STRIP <td>POCT GLUCOSE, DOCKED</td><td>Routine</td><td>10/17/2020 5:16 PM EST</td><td></td><td> </td> 10/17/2020 05:16:00 PM [facility] INF AGENT DET NUCLEIC ACID CLOSTRIDIUM AMP PROBE <td>C LOSTRIDIUM DIFFICILE TOXIN</td><td>Routine</td><td>10/17/2020 1:10 PM EST</td><td></td><td> </td> 10/17/2020 01:10:00 PM [facility] GLUCOSE QUANTITATIVE BLOOD XCPT REAGENT STRIP <td>POCT GLUCOSE, DOCKED</td><td>Routine</td><td>10/17/2020 12:17 PM EST</td><td></td><td> </td> 10/17/2020 12:17:00 PM [facility] GLUCOSE QUANTITATIVE BLOOD XCPT REAGENT STRIP <td>POCT GLUCOSE, DOCKED</td><td>Routine</td><td>10/17/2020 8:25 AM EST</td><td></td><td> </td> 10/17/2020 08:25:00 AM [facility] BLOOD COUNT COMPLETE AUTOMATED <td>CBC AND DIFFERENTIAL</td><td>Routine</td><td>10/17/2020 2:06 AM EST</td><td></td><td> </td> 10/17/2020 02:06:00 AM [facility] MAGNESIUM <td>MAGNESIUM LEVEL</td><td> Routine</td><td>10/17/2020 2:06 AM EST</td><td></td><td> </td> 10/17/2020 02:06:00 AM [facility] HEPATIC FUNCTION PANEL <td>HEPATIC FUNCTION PANEL A</td><td>Routine</td><td>10/17/2020 2:06 AM EST</td><td></td><td> </td> 10/17/2020 02:06:00 AM [facility] BASIC METABOLIC PANEL CALCIUM TOTAL <td>BASIC METABOLI C PANEL</td><td>Routine</td><td>10/17/2020 2:06 AM EST</td><td></td><td> </td> 10/17/2020 02:06:00 AM [facility] GLUCOSE QUANTITATIVE BLOOD XCPT REAGENT STRIP <td>POCT GLUCOSE, DOCKED</td><td>Routine</td><td>10/16/2020 8:46 PM EST</td><td></td><td> </td> 10/16/2020 08:46:00 PM [facility] GLUCOSE QUANTITATIVE BLOOD XCPT REAGENT STRIP <td>POCT GLUCOSE, DOCKED</td><td>Routine</td><td>10/16/2020 4:34 PM EST</td><td></td><td> </td> 10/16/2020 04:34:00 PM [facility] GLUCOSE QUANTITATIVE BLOOD XCPT REAGENT STRIP <td>POCT GLUCOSE, DOCKED</td><td>Routine</td><td>10/16/2020 12:13 PM EST</td><td></td><td> </td> 10/16/2020 12:13:00 PM [facility] XR CHEST FRONTAL ONLY [id number] <td>XR CHEST FRONTAL ONLY [id number]</td><td>Routine</td><td>10/16/2020 11:42 AM EST</td><td></td><td> </td> 10/16/2020 11:42:34 AM [facility] GLUCOSE QUANTITATIVE BLOOD XCPT REAGENT STRIP <td>POCT GLUCOSE, DOCKED</td><td>Routine</td><td>10/16/2020 8:22 AM EST</td><td></td><td> </td> 10/16/2020 08:22:00 AM [facility] MAGNESIUM <td>MAGNESIUM LEVEL</td><td> Routine</td><td>10/16/2020 3:52 AM EST</td><td></td><td> </td> 10/16/2020 03:52:00 AM [facility] BASIC METABOLIC PANEL CALCIUM TOTAL <td>BASIC METABOLI C PANEL</td><td>Routine</td><td>10/16/2020 3:52 AM EST</td><td></td><td> </td> 10/16/2020 03:52:00 AM [facility] GLUCOSE QUANTITATIVE BLOOD XCPT REAGENT STRIP <td>POCT GLUCOSE, DOCKED</td><td>Routine</td><td>10/15/2020 9:10 PM EST</td><td></td><td> </td> 10/15/2020 09:10:00 PM [facility] GLUCOSE QUANTITATIVE BLOOD XCPT REAGENT STRIP <td>POCT GLUCOSE, DOCKED</td><td>Routine</td><td>10/15/2020 4:33 PM EST</td><td></td><td> </td> 10/15/2020 04:33:00 PM [facility] GLUCOSE QUANTITATIVE BLOOD XCPT REAGENT STRIP <td>POCT GLUCOSE, DOCKED</td><td>Routine</td><td>10/15/2020 12:16 PM EST</td><td></td><td> </td> 10/15/2020 12:16:00 PM [facility] GLUCOSE QUANTITATIVE BLOOD XCPT REAGENT STRIP <td>POCT GLUCOSE, DOCKED</td><td>Routine</td><td>10/15/2020 8:17 AM EST</td><td></td><td> </td> 10/15/2020 08:17:00 AM [facility] NATRIURETIC PEPTIDE <td>PROBNP</td><td>Routine</ td><td>10/15/2020 3:52 AM EST</td><td></td><td> </td> 10/15/2020 03:52:00 AM [facility] BLOOD COUNT COMPLETE AUTO&AUTO DIFRNTL WBC COUNT <td>C BC AND DIFFERENTIAL</td><td>Routine</td><td>10/15/2020 3:52 AM EST</td><td></td><td> </td> 10/15/2020 03:52:00 AM [facility] TROPONIN QUANTITATIVE <td>TROPONIN T</td><td>Routi ne</td><td>10/15/2020 3:52 AM EST</td><td></td><td> </td> 10/15/2020 03:52:00 AM [facility] PHOSPHORUS INORGANIC <td>PHOSPHORUS LEVEL</td><td >Routine</td><td>10/15/2020 3:52 AM EST</td><td></td><td> </td> 10/15/2020 03:52:00 AM [facility] MAGNESIUM <td>MAGNESIUM LEVEL</td><td> Routine</td><td>10/15/2020 3:52 AM EST</td><td></td><td> </td> 10/15/2020 03:52:00 AM [facility] LIPASE <td>LIPASE LEVEL</td><td>Rou ady</td><td>10/15/2020 3:52 AM EST</td><td></td><td> </td> 10/15/2020 03:52:00 AM [facility] HEPATIC FUNCTION PANEL <td>HEPATIC FUNCTION PANEL A</td><td>Routine</td><td>10/15/2020 3:52 AM EST</td><td></td><td> </td> 10/15/2020 03:52:00 AM [facility] BASIC METABOLIC PANEL CALCIUM TOTAL <td>BASIC METABOLI C PANEL</td><td>Routine</td><td>10/15/2020 3:52 AM EST</td><td></td><td> </td> 10/15/2020 03:52:00 AM [facility] EKG 12-LEAD - CMAXX REPORT <td>EKG 12-LEAD - CMAXX REPORT</td><td></td><td>10/15/2020 3:34 AM EST</td><td></td><td></td> 10/15/2020 03:34:50 AM [facility] EKG 12-LEAD - CMAXX REPORT <td>EKG 12-LEAD - CMAXX REPORT</td><td></td><td>10/15/2020 3:34 AM EST</td><td></td><td></td> 10/15/2020 03:34:50 AM [facility] EKG 12-LEAD <td>EKG 12-LEAD</td><td>STAT </td><td>10/15/2020 3:34 AM EST</td><td></td><td> </td> 10/15/2020 03:34:50 AM [facility] GLUCOSE QUANTITATIVE BLOOD XCPT REAGENT STRIP <td>POCT GLUCOSE, DOCKED</td><td>Routine</td><td>10/14/2020 9:04 PM EST</td><td></td><td> </td> 10/14/2020 09:04:00 PM [facility] GLUCOSE QUANTITATIVE BLOOD XCPT REAGENT STRIP <td>POCT GLUCOSE, DOCKED</td><td>Routine</td><td>10/14/2020 4:47 PM EST</td><td></td><td> </td> 10/14/2020 04:47:00 PM [facility] GLUCOSE QUANTITATIVE BLOOD XCPT REAGENT STRIP <td>POCT GLUCOSE, DOCKED</td><td>Routine</td><td>10/14/2020 1:45 PM EST</td><td></td><td> </td> 10/14/2020 01:45:00 PM [facility] CUL BACT XCPT URINE BLOOD/STOOL AEROBIC ISOL <td>BILE CULTURE</td><td>Routine</td><td>10/14/2020 1:30 PM EST</td><td></td><td> </td> 10/14/2020 01:30:00 PM [facility] CHOLECYSTOSTOMY PRQ W/IMAGING & CATH PLMT <td>IR PERCU TANEOUS CHOLECYSTOSTOMY TUBE INSERTION</td><td>Routine</td><td>10/14/2020 1:24 PM EST</td><td></td><td> </td> 10/14/2020 01:24:49 PM [facility] BODY FLUID CULTURE AND GRAM STAIN <td>BODY FLUID CULTU RE AND GRAM STAIN</td><td>Routine</td><td>10/14/2020 1:10 PM EST</td><td></td><td> </td> 10/14/2020 01:10:00 PM [facility] GLUCOSE QUANTITATIVE BLOOD XCPT REAGENT STRIP <td>POCT GLUCOSE, DOCKED</td><td>Routine</td><td>10/14/2020 12:52 PM EST</td><td></td><td> </td> 10/14/2020 12:52:00 PM [facility] XR CHEST FRONTAL ONLY [id number] <td>XR CHEST FRONTAL ONLY 71235</td><td>Routine</td><td>10/14/2020 10:41 AM EST</td><td></td><td> </td> 10/14/2020 10:41:49 AM [facility] GLUCOSE QUANTITATIVE BLOOD XCPT REAGENT STRIP <td>POCT GLUCOSE, DOCKED</td><td>Routine</td><td>10/14/2020 9:18 AM EST</td><td></td><td> </td> 10/14/2020 09:18:00 AM [facility] GLUCOSE QUANTITATIVE BLOOD XCPT REAGENT STRIP <td>POCT GLUCOSE, DOCKED</td><td>Routine</td><td>10/14/2020 5:25 AM EST</td><td></td><td> </td> 10/14/2020 05:25:00 AM [facility] PROTHROMBIN TIME <td>PROTIME INR</td><td>Rout ine</td><td>10/14/2020 3:56 AM EST</td><td></td><td> </td> 10/14/2020 03:56:00 AM [facility] BLOOD COUNT COMPLETE AUTO&AUTO DIFRNTL WBC COUNT <td>C BC AND DIFFERENTIAL</td><td>Routine</td><td>10/14/2020 3:56 AM EST</td><td></td><td> </td> 10/14/2020 03:56:00 AM [facility] LIPASE <td>LIPASE LEVEL</td><td>Rou ady</td><td>10/14/2020 3:56 AM EST</td><td></td><td> </td> 10/14/2020 03:56:00 AM [facility] HEPATIC FUNCTION PANEL <td>HEPATIC FUNCTION PANEL A</td><td>Routine</td><td>10/14/2020 3:56 AM EST</td><td></td><td> </td> 10/14/2020 03:56:00 AM [facility] BASIC METABOLIC PANEL CALCIUM TOTAL <td>BASIC METABOLI C PANEL</td><td>Routine</td><td>10/14/2020 3:56 AM EST</td><td></td><td> </td> 10/14/2020 03:56:00 AM [facility] GLUCOSE QUANTITATIVE BLOOD XCPT REAGENT STRIP <td>POCT GLUCOSE, DOCKED</td><td>Routine</td><td>10/14/2020 12:09 AM EST</td><td></td><td> </td> 10/14/2020 12:09:00 AM [facility] GLUCOSE QUANTITATIVE BLOOD XCPT REAGENT STRIP <td>POCT GLUCOSE, DOCKED</td><td>Routine</td><td>10/13/2020 5:58 PM EST</td><td></td><td> </td> 10/13/2020 05:58:00 PM [facility] MRI ABDOMEN W/O CONTRAST MATERIAL <td>MR BILIARY TREE MRCP 19382</td><td>Routine</td><td>10/13/2020 4:42 PM EST</td><td></td><td> </td> 10/13/2020 04:42:13 PM [facility] GLUCOSE QUANTITATIVE BLOOD XCPT REAGENT STRIP <td>POCT GLUCOSE, DOCKED</td><td>Routine</td><td>10/13/2020 2:00 PM EST</td><td></td><td> </td> 10/13/2020 02:00:00 PM [facility] GLUCOSE QUANTITATIVE BLOOD XCPT REAGENT STRIP <td>POCT GLUCOSE, DOCKED</td><td>Routine</td><td>10/13/2020 9:12 AM EST</td><td></td><td> </td> 10/13/2020 09:12:00 AM [facility] CREATININE OTHER SOURCE <td>URINE RANDOM TP/CRE RATIO</td><td>Routine</td><td>10/13/2020 5:15 AM EST</td><td></td><td> </td> 10/13/2020 05:15:00 AM [facility] BLOOD COUNT COMPLETE AUTO&AUTO DIFRNTL WBC COUNT <td>C BC AND DIFFERENTIAL</td><td>Routine</td><td>10/13/2020 5:15 AM EST</td><td></td><td> </td> 10/13/2020 05:15:00 AM [facility] PHOSPHORUS INORGANIC <td>PHOSPHORUS LEVEL</td><td >Routine</td><td>10/13/2020 5:15 AM EST</td><td></td><td> </td> 10/13/2020 05:15:00 AM [facility] MAGNESIUM <td>MAGNESIUM LEVEL</td><td> Routine</td><td>10/13/2020 5:15 AM EST</td><td></td><td> </td> 10/13/2020 05:15:00 AM [facility] LIPASE <td>LIPASE LEVEL</td><td>Rou ady</td><td>10/13/2020 5:15 AM EST</td><td></td><td> </td> 10/13/2020 05:15:00 AM [facility] HEPATIC FUNCTION PANEL <td>HEPATIC FUNCTION PANEL A</td><td>Routine</td><td>10/13/2020 5:15 AM EST</td><td></td><td> </td> 10/13/2020 05:15:00 AM [facility] BASIC METABOLIC PANEL CALCIUM TOTAL <td>BASIC METABOLI C PANEL</td><td>Routine</td><td>10/13/2020 5:15 AM EST</td><td></td><td> </td> 10/13/2020 05:15:00 AM [facility] GLUCOSE QUANTITATIVE BLOOD XCPT REAGENT STRIP <td>POCT GLUCOSE, DOCKED</td><td>Routine</td><td>10/13/2020 5:09 AM EST</td><td></td><td> </td> 10/13/2020 05:09:00 AM [facility] GLUCOSE QUANTITATIVE BLOOD XCPT REAGENT STRIP <td>POCT GLUCOSE, DOCKED</td><td>Routine</td><td>10/13/2020 1:06 AM EST</td><td></td><td> </td> 10/13/2020 01:06:00 AM [facility] GLUCOSE QUANTITATIVE BLOOD XCPT REAGENT STRIP <td>POCT GLUCOSE, DOCKED</td><td>Routine</td><td>10/12/2020 9:18 PM EST</td><td></td><td> </td> 10/12/2020 09:18:00 PM [facility] IAAD EIA MULT STEP METHOD NOS EACH ORGANISM <td>LEGION MT ANTIGEN, URINE</td><td>Routine</td><td>10/12/2020 7:41 PM EST</td><td></td><td> </td> 10/12/2020 07:41:00 PM [facility] GLUCOSE QUANTITATIVE BLOOD XCPT REAGENT STRIP <td>POCT GLUCOSE, DOCKED</td><td>Routine</td><td>10/12/2020 6:05 PM EST</td><td></td><td> </td> 10/12/2020 06:05:00 PM [facility] US RETROPERITONEAL REAL TIME W/IMAGE COMPLETE <td>US R ENAL OR AORTA COMPLETE [id number]</td><td>Routine</td><td>10/12/2020 4:25 PM EST</td><td></td><td> </td> 10/12/2020 04:25:35 PM [facility] HEPATOBILIARY SYST IMAGING INCLUDING GALLBLADDER <td>N M HEPATOBILIARY IMAGING HIDA [id number]</td><td>STAT</td><td>10/12/2020 3:48 PM EST</td><td></td><td> </td> 10/12/2020 03:48:45 PM [facility] TROPONIN QUANTITATIVE <td>TROPONIN T</td><td>Routi ne</td><td>10/12/2020 1:59 PM EST</td><td></td><td> </td> 10/12/2020 01:59:00 PM [facility] BASIC METABOLIC PANEL CALCIUM TOTAL <td>BASIC METABOLI C PANEL</td><td>Routine</td><td>10/12/2020 1:59 PM EST</td><td></td><td> </td> 10/12/2020 01:59:00 PM [facility] GLUCOSE QUANTITATIVE BLOOD XCPT REAGENT STRIP <td>POCT GLUCOSE, DOCKED</td><td>Routine</td><td>10/12/2020 1:54 PM EST</td><td></td><td> </td> 10/12/2020 01:54:00 PM [facility] ECHO TTHRC R-T 2D W/WOM-MODE COMPL SPEC&COLR DOP <td>E CHOCARDIOGRAM 2D COMPLETE</td><td>STAT</td><td>10/12/2020 10:53 AM EST</td><td></td><td></td> 10/12/2020 10:53:56 AM [facility] ECHO TTHRC R-T 2D W/WOM-MODE COMPL SPEC&COLR DOP <td>E CHOCARDIOGRAM 2D COMPLETE</td><td>STAT</td><td>10/12/2020 10:21 AM EST</td><td></td><td></td> 10/12/2020 10:21:05 AM [facility] ECHO TTHRC R-T 2D W/WOM-MODE COMPL SPEC&COLR DOP <td>E CHOCARDIOGRAM 2D COMPLETE</td><td>Routine</td><td>10/12/2020 10:12 AM EST</td><td></td><td> </td> 10/12/2020 10:12:42 AM [facility] GLUCOSE QUANTITATIVE BLOOD XCPT REAGENT STRIP <td>POCT GLUCOSE, DOCKED</td><td>Routine</td><td>10/12/2020 10:00 AM EST</td><td></td><td> </td> 10/12/2020 10:00:00 AM [facility] HEPATITIS C ANTIBODY <td>HEPATITIS C ANTIBODY</td ><td>Routine</td><td>10/12/2020 6:07 AM EST</td><td></td><td> </td> 10/12/2020 06:07:00 AM [facility] PROTHROMBIN TIME <td>PROTIME INR</td><td>Rout ine</td><td>10/12/2020 6:07 AM EST</td><td></td><td> </td> 10/12/2020 06:07:00 AM [facility] BLOOD COUNT COMPLETE AUTO&AUTO DIFRNTL WBC COUNT <td>C BC AND DIFFERENTIAL</td><td>Routine</td><td>10/12/2020 6:07 AM EST</td><td></td><td> </td> 10/12/2020 06:07:00 AM [facility] TROPONIN QUANTITATIVE <td>TROPONIN T</td><td>Timed </td><td>10/12/2020 6:07 AM EST</td><td></td><td> </td> 10/12/2020 06:07:00 AM [facility] LIPASE <td>LIPASE LEVEL</td><td>Rou ady</td><td>10/12/2020 6:07 AM EST</td><td></td><td> </td> 10/12/2020 06:07:00 AM [facility] BILIRUBIN DIRECT <td>BILIRUBIN, DIRECT</td><t d>Routine</td><td>10/12/2020 6:07 AM EST</td><td></td><td> </td> 10/12/2020 06:07:00 AM [facility] COMPREHENSIVE METABOLIC PANEL <td>COMPREHENSIVE METABO LIC PANEL</td><td>Routine</td><td>10/12/2020 6:07 AM EST</td><td></td><td> </td> 10/12/2020 06:07:00 AM [facility] GLUCOSE QUANTITATIVE BLOOD XCPT REAGENT STRIP <td>POCT GLUCOSE, DOCKED</td><td>Routine</td><td>10/12/2020 6:04 AM EST</td><td></td><td> </td> 10/12/2020 06:04:00 AM [facility] GLUCOSE QUANTITATIVE BLOOD XCPT REAGENT STRIP <td>POCT GLUCOSE, DOCKED</td><td>Routine</td><td>10/12/2020 1:59 AM EST</td><td></td><td> </td> 10/12/2020 01:59:00 AM [facility] TROPONIN QUANTITATIVE <td>TROPONIN T</td><td>Timed </td><td>10/11/2020 11:58 PM EST</td><td></td><td> </td> 10/11/2020 11:58:00 PM [facility] GLUCOSE QUANTITATIVE BLOOD XCPT REAGENT STRIP <td>POCT GLUCOSE, DOCKED</td><td>Routine</td><td>10/11/2020 10:18 PM EST</td><td></td><td> </td> 10/11/2020 10:18:00 PM [facility] URNLS DIP STICK/TABLET REAGENT AUTO MICROSCOPY <td>URI NALYSIS WITH REFLEX URINE CULTURE</td><td>Routine</td><td>10/11/2020 9:30 PM EST</td><td></td><td> </td> 10/11/2020 09:30:00 PM [facility] UREA NITROGEN URINE <td>UREA NITROGEN, URINE</td ><td>Routine</td><td>10/11/2020 9:30 PM EST</td><td></td><td> </td> 10/11/2020 09:30:00 PM [facility] SODIUM URINE <td>SODIUM, URINE, RANDOM</t d><td>Routine</td><td>10/11/2020 9:30 PM EST</td><td></td><td> </td> 10/11/2020 09:30:00 PM [facility] CREATININE OTHER SOURCE <td>CREATININE, URINE, RANDOM</td><td>Routine</td><td>10/11/2020 9:30 PM EST</td><td></td><td> </td> 10/11/2020 09:30:00 PM [facility] CULTURE BACTERIAL BLOOD AEROBIC W/ID ISOLATES <td>BLOO D CULTURE</td><td>Routine</td><td>10/11/2020 9:30 PM EST</td><td></td><td> </td> 10/11/2020 09:30:00 PM [facility] LACTATE <td>LACTIC ACID LEVEL, PLASM A</td><td>STAT</td><td>10/11/2020 9:30 PM EST</td><td></td><td> </td> 10/11/2020 09:30:00 PM [facility] BLOOD GASES ANY COMBINATION PH PCO2 PO2 CO2 HCO3 <td>B LOOD GAS, VENOUS</td><td>STAT</td><td>10/11/2020 9:30 PM EST</td><td></td><td> </td> 10/11/2020 09:30:00 PM [facility] CULTURE BACTERIAL BLOOD AEROBIC W/ID ISOLATES <td>BLOO D CULTURE</td><td>Routine</td><td>10/11/2020 9:23 PM EST</td><td></td><td> </td> 10/11/2020 09:23:00 PM [facility] XR CHEST FRONTAL ONLY [id number] <td>XR CHEST FRONTAL ONLY 52526</td><td>Routine</td><td>10/11/2020 9:21 PM EST</td><td></td><td> </td> 10/11/2020 09:21:44 PM [facility] EKG ED PHYSICIAN INTERPRETATION <td>EKG ED PHYSICIAN INTERPRETATION</td><td>Routine</td><td>10/11/2020 9:20 PM EST</td><td></td><td> </td> 10/11/2020 09:20:00 PM [facility] EKG 12-LEAD - CMAXX REPORT <td>EKG 12-LEAD - CMAXX REPORT</td><td></td><td>10/11/2020 9:13 PM EST</td><td></td><td></td> 10/11/2020 09:13:49 PM [facility] EKG 12-LEAD - CMAXX REPORT <td>EKG 12-LEAD - CMAXX REPORT</td><td></td><td>10/11/2020 9:13 PM EST</td><td></td><td></td> 10/11/2020 09:13:49 PM [facility] EKG 12-LEAD <td>EKG 12-LEAD</td><td>STAT </td><td>10/11/2020 9:13 PM EST</td><td></td><td> </td> 10/11/2020 09:13:49 PM [facility] EKG 12-LEAD - CMAXX REPORT <td>EKG 12-LEAD - CMAXX REPORT</td><td></td><td>10/11/2020 9:13 PM EST</td><td></td><td></td> 10/11/2020 09:13:00 PM [facility] RESPIRATORY PATHOGEN PANEL <td>RESPIRATORY PATHOGEN PANEL</td><td>Routine</td><td>10/11/2020 7:41 PM EST</td><td></td><td> </td> 10/11/2020 07:41:00 PM [facility] COVID-19 PCR <td>COVID-19 PCR</td><td>Rou ady</td><td>10/11/2020 7:41 PM EST</td><td></td><td> </td> 10/11/2020 07:41:00 PM [facility] ULTRASOUND ABDOMINAL REAL TIME W/IMAGE LIMITED <td>US ABDOMEN LIMITED [id number]</td><td>Routine</td><td>10/11/2020 7:34 PM EST</td><td></td><td> </td> 10/11/2020 07:34:33 PM [facility] BLOOD COUNT COMPLETE AUTO&AUTO DIFRNTL WBC COUNT <td>C BC AND DIFFERENTIAL</td><td>Routine</td><td>10/11/2020 6:03 PM EST</td><td></td><td> </td> 10/11/2020 06:03:00 PM [facility] BLOOD TYPING ABO <td>TYPE AND SCREEN</td><td> STAT</td><td>10/11/2020 6:03 PM EST</td><td></td><td> </td> 10/11/2020 06:03:00 PM [facility] TROPONIN QUANTITATIVE <td>TROPONIN T</td><td>STAT< /td><td>10/11/2020 6:03 PM EST</td><td></td><td> </td> 10/11/2020 06:03:00 PM [facility] TRIGLYCERIDES <td>TRIGLYCERIDES</td><td>Ro utine</td><td>10/11/2020 6:03 PM EST</td><td></td><td> </td> 10/11/2020 06:03:00 PM [facility] PHOSPHORUS INORGANIC <td>PHOSPHORUS LEVEL</td><td >Routine</td><td>10/11/2020 6:03 PM EST</td><td></td><td> </td> 10/11/2020 06:03:00 PM [facility] MAGNESIUM <td>MAGNESIUM LEVEL</td><td> Routine</td><td>10/11/2020 6:03 PM EST</td><td></td><td> </td> 10/11/2020 06:03:00 PM [facility] LIPASE <td>LIPASE LEVEL</td><td>STA T</td><td>10/11/2020 6:03 PM EST</td><td></td><td> </td> 10/11/2020 06:03:00 PM [facility] HEMOGLOBIN GLYCOSYLATED A1C <td>HEMOGLOBIN A1C</td><td>Routine</td><td>10/11/2020 6:03 PM EST</td><td></td><td> </td> 10/11/2020 06:03:00 PM [facility] HEPATIC FUNCTION PANEL <td>HEPATIC FUNCTION PANEL A</td><td>STAT</td><td>10/11/2020 6:03 PM EST</td><td></td><td> </td> 10/11/2020 06:03:00 PM [facility] BASIC METABOLIC PANEL CALCIUM TOTAL <td>BASIC METABOLI C PANEL</td><td>STAT</td><td>10/11/2020 6:03 PM EST</td><td></td><td> </td> 10/11/2020 06:03:00 PM [facility] RHC/FQ code for distant site telehealt h services (Synchronous telemedicine service rendered via real-time interactive audio and video telecommunication system) [facility]/FQHC code for distant site telehealt h services (Synchronous telemedicine service rendered via real-time interactive audio and video telecommunication system) 09/17/2020 12:00:00 AM EST CARMEN Mckeon ([facility]) Therapy noncompliance due to lack of comprehension The rapy noncompliance due to lack of comprehension 06/08/2020 12:00:00 AM MILDRED WASHBURN ([facility]) RHC/FQHC code for distant site telehealt h services (Synchronous telemedicine service rendered via real-time interactive audio and video telecommunication system, Cost Sharing) [facility] code for distant site telehealt h services (Synchronous telemedicine service rendered via real-time interactive audio and video telecommunication system, Cost Sharing) 05/12/2020 12:00:00 AM EDT [facility] Results ID Date Data Source [id number] 06/07/2021 01:10:00 PM EDT [facility] Card[facility] [address], [address] [place] [address] [facility] Cardiology Note : [id number] Signed Patient: Lory Winkler Jr Acct:[id number] Visit Date: 06/07/21 : 1945 cc: Carolyn Elizondo Dr., Dr., DO Cardiology HPI History of present illness History of present illness: Mr. Lory Winkler is a pleasant 76-year-old gentleman who returns to our office. He was last evaluated in November of 2020. Mr. Winkler has a past medical history that is significant for coronaryartery disease. He is status post multiple percutaneous coronary interventions to the right coronary artery. In February of 2013, Mr. Winkler underwent coronary artery bypass grafting. His bypass grafts included a HERNANDEZ graft to the LAD and a EMILY graft to the right coronary artery. Mr. Calderon postoperative course was complicated by a sternal wound infection that was treated with debridement and antibiotics. In addition, Mr. Winkler developed a GI bleed after his bypass procedure secondary to hemorrhoids. Mr. Winkler's other medical problems include hypertension, grade III diastolic heart dysfunction, mild mitral and mild tricuspid regurgitation with resting pulmonary pressures of 36 mmHg, stage V chronic renal insufficiency secondary to diabetic nephropathy as well as nephrosclerosis from longstanding hypertension, anemia secondary to his renal disease as well as myelodysplastic syndromethat required Procrit injections based upon his hematocrit, peripheral vascular disease with 75% stenosis involving the left internal carotid artery as well as iliofemoral disease, a history GI bleeding when he was prescribed either antiplatelet agent and/or anticoagulants, status post the Del-en-Y gastric bypass procedure in June of 2016, status post an episode of gallstone pancreatitis in October of 2020 that required antibiotics as well as placement of a biliary drain and history of and osteoarthritis. In addition, since last been seen in our office, Mr. Winkler was admitted to [facility] with worsening renal failure. He was admitted in December of 2020. A [id number] was placed and Mr. Robert underwent hemodialysis starting on January 07, 2021. He tolerated hemodialysis well. He went on to placement of an AV fistula involving his left upper extremity with Dr. Perdomo. Mr. Winkler comes to our office stating that from a cardiac point, he is feeling well. He reports no signs or symptoms of ischemic heart disease and/or congestive heart failure. Mr. Robert reports that during the dialysis therapy his blood pressure is low. Mr. Winkler reports no chest pressure, shortness of breath at rest, bipedal edema, orthopnea, PND, palpitation, and/or episodes of syncope. After hemodialysis, he can feel lightheaded particular if he gets up too quickly from the sitting position. According to our scales, he has gained 2 kilograms in weight and now weighs 85.7 kilograms with a BMI of 30.5. Coronary Artery Disease Angina: None CCS angina class: 0 asymptomatic Medication compliance: Good Side effects: None Coronary artery bypass graft: Yes PCI: Yes Pacemaker: No Heart failure Type of heart failure: Diastolic Current symptoms: No Chest pain, No Edema, No Orthopnea or No PND NYHA classification: I. No limitation ACC/AHA stage: B (No symptoms) States activity of: Around the house, Bed to chair and Walking Diet type: 2 gm sodium Fluid restriction of: 2,000 cc Dietary compliance: Fair Medication compliance: Good Side effects: None Oxygen needs: None Hypertension Current cardiovascular symptoms: No Chest pain, Yes Dyspnea, No Edema or No Palpitations Blood pressure monitoring: Health professional Blood pressure target: < 130/80 Compliance: good Side effects: None Diet type: DASH Dietary compliance: Fair Medication compliance: Good Physical activity: Walking Intake Vital Signs 3 06/07/21 13:10 06/08/21 07:19 06/08/21 07:19 Height 5 ft 6 in Weight 85.786 kg BMI 30.5 BP 148/62 H 138/60 122/56 Blood Pressure Location Right Arm Right Arm Right Arm Position Sitting / Chair Sitting / Chair Standing Respiration 14 14 Pulse 69 72 78 Pulse Source O2 sat Monitor Palpation Palpation Temp 97.5 F L Temp Source Temporal Artery Scan Pulse Oximetry (%) 99 Oxygen Delivery Method room air Cardiology Intake Patient Status Have you had an UC/ED visit and/or been admitted to the hospital since your last visit?: No Have you been diagnosed with COVID-19?: No Recent Travel Travel Outside of the country in last 30 days?: No Mask given: No Visit Reasons: 6 MO F/U-Conf Nurse Note: Lory presents today for a follow up visit. He complains of his BP dropping when he is at dialysis. No other complaints stated at this time. 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: No Is patient in pain?: No Primary Care Physician:: DYAN Snow Have you smoked within the past year: No Aller gies lactulose Allergy (Unknown, Verified 06/07/21 13:16) unknown Trfrslr-XJL-WuX Reductase Inhibitor [Heofioc-Zam-Rdq Reductase Inhibitor] Adverse Reaction (Intermediate, Verified 06/07/21 13:16) myalgias aspirin Adverse Reaction (Unknown, Verified 06/07/21 13:16) Home Medications - Last Reconciled 06/08/21 by Durga De Leon MD ascorbate calcium (vitamin C) 500 mg tablet 500 mg PO DAILY calcium carbonate 600 mg(1,500 mg)- vitamin D3 800 unit chewable tablet (Caltrate 600 plus D) 1 tab PO BID carvedilol 25 mg tablet 25 mg PO BID cholecalciferol (vitamin D3) 125 mcg (5,000 unit) capsule 5,000 units PO BID cyanocobalamin (vitamin B-12) 500 mcg tablet 500 mcg PO QDAY ezetimibe 10 mg tablet 10 mg PO QDAY ferrous sulfate 325 mg (65 mg iron) tablet 325 mg PO BID hydralazine 25 mg tablet 25 mg PO TID insulin glargine 100 unit/mL (3 mL) subcutaneous pen (Basaglar KwikPen U-100 Insulin) 30 units subcut DAILY irbesartan 300 mg tablet 300 mg PO DAILY lactobacillus combination no.8 (Adult Probiotic) PO DAILY multivitamin (Chewable-Josie) 1 ea PO DAILY nitroglycerin 0.4 mg sublingual tablet 0.4 mg sublingual DIRECTED pantoprazole 40 mg tablet,delayed release 40 mg PO DAILY Patient understands their medications: Yes History of Smoking/Tobacco Use: Former Smoker Tobacco Product: Cigarettes Annual Influenza Vaccine: No Pneumococcal Vaccine (+65): Yes Have you received the Covid-19 vaccine?: No Did you complete the series?: No Immunizations up to date: Yes Risk Assessment Predictor Tool (RAPT) Which gait aid do you use (more often th an not): None [facility] Medical History Bilateral carotid artery disease 60% stenosis CAD (coronary artery disease) post multiple percutaneous interventions to a dominant right coronary artery. In February 2013, Mr. Winkler underwent coronary artery bypass grafting. His procedure was complicated by a sternal wound infection that improved with antibiotics and a lower GI bleed secondary to internal he morrhoids. His bypass grafts include a HERNANDEZ to the LAD and a EMILY to the RCA Chronic renal insufficiency, stage II (mild) with baseline creatinine clearance of approximately 60 cc/min. Diabetes mellitus type 2 Diastolic dysfunction Erectile dysfunction Glaucoma Hyperlipidemia Hypertension Osteoarthritis involving his hips Vitamin D deficiency Deppm-Eitnmamcz-Lpwkn (WPW) pattern on his baseline electrocardiogram. Surgical History History of - coronary artery bypass grafting s/p CABG in February of 2013 with his bypass grafts including a HERNANDEZ to the LAD and a EMILY to the RCA. His post operative course was complicated by a wound infection that improved with antibiotics and a lower GI bleed from hemorrhoids. History of bariatric surgery by Dr. Len Kelsey in June of 2016 Stented coronary artery Multiple interventions to the RCA Family History Other Diabetes mellitus HTN (hypertension) Social History Marital Status: Occupational status: retired Alcohol Use: None Substance Use: never Cardiology ROS Const Reports fatigue and Reports headache(s) (Occasional) ENT Ears, Nose, Mouth, Throat: reports nasal congestion (Occasional) Card Cardiovascular: Reports Shortness of breath with activity (that are stable) Resp Details: Negative for cough, hemoptysis or wheezing. GI Reports heartburn (Occasional) Details: Negative for hematochezia or melena Details: Positive for nocturia twice at night. Negative for hematuria or dysuria Musc Reports back pain (Occasional, lower as well as hip and knee pain) Neuro Reports headache(s) (Occasional) Psych Details: Negative for depression or anxiety. Endo Reports fatigue Cardiology Exam Const Nutritional Appearance: obese Orientation: alert and oriented x3 Other: Mr. Winkler is a pleasant 75-year-old who appaered chronically ill Skin Normal color: Yes (without evidence for venous stasis dermatitis) Neck Neck: normal visual inspection (Without evidence for jugular venous distention) Other: The carotid upstrokes on the left were delayed and there was a left carotid bruit. Chest Other: He is status post a sternotomy. Resp Auscultation: diminished lung sounds (otherwise clear. No rales, rhonchi, or wheezing heard) Cardio Rate: regular rate Rhythm: regular rhythm Heart Sounds: Yes S1 normal and S2 normal Palpation: normal PMI Other: With an S3 gallop and a 1/6 apical systolic murmur. There was no S4 gallop. There was no click or rub GI Palpation: soft Extrem General: no clubbing, cyanosis or edema (There was no Homans' sign and/or palpable cord) Pulse: Dorsalis pedis R/L (diminished, but palpable) and Posterior tibial R/L (diminished, but palpable) Other: There was positive thrill and the AV fistula located in the left antecubital fossa Assessment Plan (AMB) Assessment Plan (1) CAD (coronary artery disease): Code(s): I25.10 - Atherosclerotic heart di sease of poarch coronary artery without angina pectoris (2) Status post percutaneous transluminal angioplasty (PLAYERS ASSISTANT): Code(s): Z98.62 - Peripheral vascular angioplasty status (3) Status post coronary artery bypass grafting: Code(s): Z95.1 - Presence of aortocoronary bypass graft (4) Hypertension: Code(s): I10 - Essential (primary) hypertension (5) Diastolic heart failure: Code(s): I50.30 - Unspecified diastolic (congestive) heart failure (6) Hyperlipidemia: Code(s): E78.5 - Hyperlipidemia, unspecified (7) Type 2 diabetes mellitus: Code(s): E 11.9 - Type 2 diabetes mellitus without complications (8) Peripheral vascular disease: Code(s): I73.9 - Peripheral vascular disease, unspecified (9) Chronic renal insufficiency, stage V: Code(s): N18.5 - Chronic kidney disease, stage 5 Orders: Orders CD ECHOCARDIOGRAM COMPLETE 6 Months I10 - Essential (primary) hypertension, I50.30 - Unspecified diastolic (congestive) heart failure, R01.1 - Cardiac murmur, unspecified Medications: Changed From irbesartan 300 mg PO DAILY 90 tabs 3RF To irbesartan 300 mg PO DAILY Discontinued hydralazine Discontinued Reason: *Provider Requested (,DO,ULTRASOUND SPEC,PA) 25 mg PO TID Problems Did you add a problem (diagnosis code) to the patient?: Yes Plan: From a cardiac point, I think that Mr. Winkler is stable. He reports no signs or symptoms of ischemic heart disease and/or congestive heart failure. He reports no significant change in his aerobic fitness. He reports that his blood pressure is low during the hemodialysis and afterwards he can feel lightheaded. At this time, I recommended to continue to promote the importance of lifestyle intervention through nutrition, weight management, and exercise. I have asked Mr. Winkler to avoid seasoning his foods with salt, to avoid processed foods, to avoid simple carbohydrates, and to avoid non-steroidal anti-inflammatory drugs. At today's appointment, his systolic blood pressure is within normal parameters, but his diastolic blood pressure is low. He is not orthostatic. I recommend that we stop the minoxidil and to continue with current dose of carvedilol as well as irbesartan. Mr. Winkler does not think that he is taking hydralazine anymore. I have asked him to confirm this with his and/or with his pharmacy. If he is still taking hydralazine, then I recommend to stop this medication as well and ifhis blood pressure becomes elevated then to start amlodipine 2.5 mg once a day on non-hemodialysis days. Mr. Winkler is intolerant to statin therapy. Today, I suggest him that we start a PCSK9 inhibitor. He reports that his cholesterol has been very well controlled and he like to continue with his current dose of Zetia. Mr. Winkler cannot take either antiplatelet agents or anticoagulants secondary to history of recurrent GI bleeding when prescribed them. He will followup with Dr. Iris Perdomo regarding his carotid artery disease as well as his peripheral vascular disease. Mr. Winkler has a follow-up appointment in our office in 6 months time or sooner if clinically indicated. A followup has been arranged transthoracic echocardiogram. Comment: Obed Loera transcribing the following service on behalf of Dr. Durga De Leon on 06/07/2021. Coding Level of Care Code 87683 Estab Pt Level 4 History Detailed Exam Detailed Diagnoses CAD (coronary artery disease) I25.10 Status post percutaneous transluminal angioplasty (PLAYERS ASSISTANT) Z98.62 Status post coronary artery bypass grafting Z95.1 H ypertension I10 Diastolic heart failure I50.30 Hyperlipidemia E78.5 Type 2 diabetes mellitus E11.9 Peripheral vascular disease I73.9 Chronic renal insufficiency, stage V N18.5 Signed By:Durga De Leon MD <<Signature on File>> Signed Date/Time: 06/08/21 0774 Co-Signer: Co-Signed Date/Time: Initializing User: Durga De Leon MD 1309 09 09 Name Value Range Interpretation Code Description Data Jazmín rce(s) Supporting Document(s) ID Date Data Source [id number] 04/26/2021 12:00:00 AM [facility]) Name Value Range Interpretation Code Description Data Jazmín rce(s) Supporting Document(s) Hemoglobin A1c/Hemoglobin.total in Blood 6.2 Normal Hgb A1c MADDISON ([facility]aw[facility]) ID Date Data Source [id number] 04/25/2021 06:42:52 AM EDT [facility] INFORMATIONPatient MRN Name Date of Age Gend*PT [id number] Lory Winkler Jr. 1945 76 years M SDCPT Location Admission Date/Time Visit ID Attending ProviderPERIOP POOL 04/09/21 1126 --- --- EPI ID CSN Admitting Pro vider [id number] Iris Perdomo MD([id number]) [place] [address] OPERATIVE REPORT OPNAME: LORY WINKLER JR.#: [id number] #: [id number] ADMISSION DATE: 04/09/2021OB: 1945 SEX: M PT TYPE: H VascACCT #: [id number] CARE PHYSICIAN: ASHLEY ROJAS OF OPERATION: 04/09/2021IAGNOSIS:End-stage renal disease.PROCEDURE:Left arm AV fistula formation.SURGEON:Iris Perdomo MD.KNITTING MACHINE OPERATOR HELPER:DYAN Garcia.ANESTHESIA:LMA with supplemental local.DESCRIPTION OF PROCEDURE:With the patient supine, left arm was painted with ChloraPrep and draped angelina sterile fashion. Lidocaine 1% was infiltrated at the left antecubitalfossa. Transverse incision was made. The cephalic vein appears wellsuited for fistula. Brachial artery was exposed and systemic heparin wasgiven. The vein was ligated, transected, and anastomosed with 6-0 Prolenesutures to the artery. There was satisfactory flow. The incision wasclosed in layers with absorbable suture material. Blood loss was minimal.Sponge and needle count correct. He was brought to recovery room stable.BRE Cesar/NTS Job #: [id number] DOC #: [id number]: Dialysis Unit Name Value Range Interpretation Code Description Data Jazmín rce(s) Supporting Document(s) ID Date Data Source [id number] 04/09/2021 06:29:51 PM EDT [facility] Name Value Range Interpretation Code Description Data Jazmín rce(s) Supporting Document(s) POC NOVA GLU 127 mg/dL (70-99) H [facility] [place] PERFORMED BY [facility] ID Date Data Source [id number] 04/09/2021 04:13:09 PM EDT [facility] INFORMATIONPatient MRN Name Date of Age Gend*PT [id number] Lory Winkler Jr. 1945 76 years M SDCPT Location Admission Date/Time Visit ID [facility]6 --- Sanchez Cesar([id number]) EPI ID CSN Admitting Provider [id number] Iris Perdomo MD([id number])esrd risk avf bleeding nerve ischemia explained Name Value Range Interpretation Code Description Data Jazmín rce(s) Supporting Document(s) ID Date Data Source [id number] 04/09/2021 12:46:51 PM EDT [facility] Name Value Range Interpretation Code Description Data Jazmín rce(s) Supporting Document(s) POC POTASSIUM 4.2 MMOL/L (3.6-5.2) [facility] ID Date Data Source [id number] 04/09/2021 12:46:51 PM EDT [facility] Name Value Range Interpretation Code Description Data Jazmín rce(s) Supporting Document(s) POC GLU 76 MG/DL (70-99) [facility] ID Date Data Source [id number] 04/09/2021 12:46:51 PM EDT [facility] Name Value Range Interpretation Code Description Data Jazmín rce(s) Supporting Document(s) POC HCT 32 % (41.0-53.0) L [facility] ID Date Data Source [id number] 04/09/2021 12:56:11 PM EDT [facility] Name Value Range Interpretation Code Description Data Jazmín rce(s) Supporting Document(s) POC NOVA GLU 75 mg/dL (70-99) [facility] [place] [facility] ID Date Data Source [id number] 04/05/2021 10:52:24 AM EDT [facility] INFORMATIONPatient MRN Name Date of Age Gend*PT [id number] Lory Winkler Jr. 1945 76 years M OPPT Location Admission Date/Time Visit ID Attending Provider --- --- --- Iris Perdomo MD ([id number]) EPI ID CSN Admitting Provider [id number] ---OUTPATIENT / OBSERVATIONAL SURGICAL OR INVASIVE PROCEDUREName: Lory Winkler Jr. : 1945 Sex: male Care Provider: Bee DURHAM Physician: Dr. Perdomo.HISTORY OF PRESENT ILLNESS: 76 years old male . He has a complex medicalhistory. He has end-stage renal disease. [facility] is now electing for AV fistula placement left upper extremity.PAST MEDICAL HISTORY:Past Medical History:Diagnosis Date Anxiety Basal cell carcinoma Carotid artery occlusion Colon polyp COPD (chronic obstructive pulmonary disease) Coronary artery disease Follows with Dr. De Leon Diabetes mellitus type 2 Diverticula of colon Diverticulitis GERD (gastroesophageal reflux disease) Hyperlipidemia Hypertension Lactose intolerance Lower GI bleed Myocardial infarction Osteoarthritis Peripheral neuropathy Strabismic amblyopia of left eye Tuberculosis 1959's Eqhnf-Zfbnrxgxp-Linmw (WPW) syndromePAST SURGICAL HISTORY:Past Surgical History:Procedure Laterality Date BASAL CELL CARCINOMA EXCISION Right inferior to the eye CARDIAC CATHETERIZATION Left 08/24/2017 Procedure: Stent Carotid LEFT; Surgeon: Iris Perdomo MD; Laterality: Left; CATARACT EXTRACTION EXTRACAPSULAR W/ INTRAOCULAR LENS IMPLANTATION Right COLONOSCOPY COLONOSCOPY W/ POLYPECTOMY CORONARY ANGIOPLASTY CORONARY ARTERY BYPASS GRAFT 03/06/2013 Dr. Perez CORONARY STENT PLACEMENT 6 stents GASTRIC BYPASS N/A 06/09/2016 Procedure: GASTRIC BYPASS DEL-EN-Y LAPARO SCOPIC, LIVER BIOPSY; Surgeon:Gabriel Gil MD; Location: [facility]; Service: Bariatric; Laterality:N/A; MULTIPLE TOOTH EXTRACTIONS PANENDOSCOPY N/A 05/17/2016 Procedure: ENDOSCOPY WITH H PYLORI BIOPSY W ANESTHESIA; Surgeon: MD Efraín; Location: [facility]; Service: Gastroenterology;Laterality: N/A; PermCath RightALLERGIES:AllergiesAllergen Reactions Plavix [Clopidogrel] Other (See Comments) GI bleed, required blood transfusions Actos [Pioglitazone] Other (See Comments) myalgia Aspirin Other (See Comments) GI bleed Crestor [Rosuvastatin] Other (See Comments) Leg cramps Heparin Bleed Lactose Intolerance (Gi) Diarrhea Lipitor [Atorvastatin] Other (See Comments) myalgia Nicotine Hives Nicotine PatchMEDICATIONS:Prior to Admission medicationsMedication Sig Start Date End Date Taking? Authorizing Provideracetaminophen (TYLENOL) 500 MG tablet Take 500 mg by mouth daily as needed forpain Historical Provider, LYNETTEalcium Carb-Cholecalciferol (CALTRATE 600+D) 600-800 MG-UNIT TABS Take 1 tabletby mouth daily Historical Provider, Lynettearvedilol (COREG) 25 MG tablet Take 25 mg by mouth 4 (four) times a week Twicea day on Monday, Monday, Monday and Monday Historical Provider, Lynettearvedilol (COREG) 25 MG tablet Take 25 mg by mouth as needed (Once afterdialysis on Monday, , and Monday) Historical Provider, LYNETTEholecalciferol (VITAMIN D3) 5000 UNITS capsule Take 10,000 Units by mouth dailyHistorical Provider, Obieocusate sodium (COLACE) 100 MG capsule Take 100 mg by mouth once dailyHistorical Provider, ezetimibe (ZETIA) 10 MG tablet Take 10 mg by mouth every evening HistoricalProviderMDFerrous Sulfate (Iron) 325 (65 Fe) MG TABS Take 325 mg by mouth once dailyHistorical Provider, Insulin Glargine (Basaglar KwikPen) 100 UNIT/ML SOPN Inject 20 Units under theskin daily as needed (when sugar is >110) Historical Provider, irbesartan (AVAPRO) 300 MG tablet Take 300 mg by mouth nightly HistoricalProviIván avilainoxidil (LONITEN) 2.5 MG tablet Take 2.5 mg by mouth 2 (two) times a dayHistorical Provider, IVÁNultiple Vitamins-Minerals (Multivitamin Adult) CHEW Chew 2 tablets once dailyHistorical ProviderMDnitroglycerin (NITROSTAT) 0.[address] 0.4 mg under the tongue every 5(five) minutes as needed for chest pain Historical Provider, Tanoantoprazole (PROTONIX) 40 MG tablet Take 40 mg by mouth daily HistoricalProvider, MDProbiotic Product (PROBIOTIC-10 PO) Take 1 capsule by mouth 2 (two) times a dayHistorical Provider, vitamin B-12 (CYANOCOBALAMIN) 1000 MCG tablet Take 1,000 mcg by mouth dailyHistorical Provider, Kandilbuterol (PROVENTIL HFA;VENTOLIN HFA) 108 (90 Base) MCG/ACT inhaler Inhale 2puffs every 4 (four) hours as needed for wheezing 04/05/21 Historical Provider,Kandispirin EC 81 MG EC tablet Take 1 tablet (81 mg total) by mouth daily MAYRESTART IN TEN DAYS AFTER DISCHARGEPatient taking differently: Take 81 mg by mouth daily 06/09/16 04/05/21 Rui Velascolin glargine (INSULIN GLARGINE) 100 UNIT/ML injection Inject 20-30 Unitsunder the skin nightly 04/05/21 Historical Provider, IVÁNultiple Vitamins-Iron (MULTIVITAMIN WITH IRON) TABS Take 2 tablets by mouthdaily 06/10/16 04/05/21 Cherry Garcia, PASocial HistoryTobacco Use Smoking status: Former Smoker Packs/day: 1.00 Years: 50.00 Pack years: 50.00 Types: Cigarettes Quit date: 05/19/2010 Years since quittin.8 Smokeless tobacco: Never Used Tobacco comment: max use 2 PPD x 5 yearsSubstance Use Topics Alcohol use: Yes Comment: heavy ETOH x1 quit 27 years Drug use: NoFamily HistoryProblem Relation Age of Onset Coronary artery disease Mother Coronary artery disease Father Coronary artery disease Brother Diabetes Brother Multiple sclerosis Son Coronary artery disease Brother Diabetes Brother Coronary artery disease Brother Malig Hyperthermia Neg HxREVIEW OF SYSTEMS:Respiratory: Denies any shortness of breath, cough, yellow sputum production orwheezing.Cardiovascular: Denies any chest pain, pressure or tightness. Denies anyparoxysmal nocturnal dyspnea or orthopnea.GI: Denies nausea, vomiting, diarrhea, constipation or melena.Neurologic: Denies any numbness, tingling, tremors or syncope.Vascular: Denies any edema. Denies claudication.PHYSICAL EXAM:GENERAL: He is a 76 years old, pleasant male, in no acute distress at time ofexamination. Vitals on arrival to the office are BP 152/69 (BP Location: Rightupper arm, Patient Position: Sitting) | Pulse 66 | Ht 1.689 m (5' 6.5") | Wt82 kg (180 lb 11.2 oz) | SpO2 98% | BMI 28.73 kg/m Body mass index is 28.73kg/m ..Skin is pink, warm, and dry.NECK: He has a grade 3 airway. Neck is supple, midline, without cervicaladenopathy. No thyromegaly. No carotid bruits.MENTAL / NEUROLOGICAL STATUS: [id number]: Clear to auscultation. No wheezes, rhonchi or crackles.HEART: Rate rhythm regular. S1, S2. No murmur, rub or gallop.ABDOMEN: Bowel sounds positive times four. Soft, non tender. No reboundtenderness. No hepatosplenomegaly. Negative CVAT.EXTREMITIES: Pulses are symmetrical. no edema.OPERATIVE SITE: Clean and dry.Anesthesia complications: None knownCSHA Frailty Scale :: 3/10 Managing Well (medical problems are well controlled,but are not regularly active beyond routine walking).Stop Bang Questionnaire - Total Score:STOP-Bang Total Score: 3ASSESSMENT: Primary Diagnosis/Indication: End- stage renal disease.PLAN: Procedure: Creation of AV fistula left upper extremity.04/05/2021 10:51 AMNancy Malcolm document or parts of this document, were dictated using about.me speaking software. A reasonable attempt at proofreading has beenmade to minimize errors. Please call with any questions or corrections.* Name Value Range Interpretation Code Description Data Jazmín rce(s) Supporting Document(s) ID Date Data Source [id number] 04/05/2021 10:48:54 AM EDT [facility] Name Value Range Interpretation Code Description Data [facility] rce(s) Supporting Document(s) EKG [facility] [id number] [file] [id number] ID Date Data Source [id number] 04/05/2021 04:29:11 PM EDT [facility] Name Value Range Interpretation Code Description Data Jazmín rce(s) Supporting Document(s) HEMOGLOBIN A1C @ 6.2 % (4.0-6.0) H [facility] Performed using Siemens Johnson immunoassa y.Care must be taken when interpreting [id number] in patients with a hemoglobin variantor decreased erythrocyte lifespan. Values 5.7 - 6.4% suggest prediabetes.Values >=6.5% are diagnostic for diabetes.REFERENCE: DIABETES CARE 2018: 41(S13-S27). EST AVERAGE GLUCOSE 131 mg/dL [facility] ID Date Data Source [id number] 04/05/2021 03:53:39 PM EDT [facility] Name Value Range Interpretation Code Description Data Jazmín rce(s) Supporting Document(s) SODIUM 139 mmol/L (136-145) [facility] POTASSIUM 4.1 mmol/L (3.6-5.2) [facility] CHLORIDE 103 mmol/L (100-108) [facility] CO2 27 mmol/L (22-31) [facility] ANION GAP 9 mmol/L (7-16) [facility] UREA NITROGEN 41 mg/dL (7-24) H [facility] CREATININE 5.91 mg/dL (0.80-1.30) H [facility] RESULT VERIFIED BY REPEAT TESTING.RESULT (S) CALLED TO AND READ BACK ZULEMA AT [id number] ON [id number] AT 1551 BY [id number]. BUN/CREAT RATIO 6.9 RATIO (10.0-20.0) L [facility] GLUCOSE 142 mg/dL (70-99) H [facility] CALCIUM 8.5 mg/dL (8.4-10.2) [facility] GFR 9 ml/min/1.73m2 (>59) L [facility] GFR ( AMER) 11 ml/min/1.73m2 (>59) L [facility] GFR INTERPRETATION Lab [facility] [place] --NORMAL KIDNEY FUNCTION OR MILD DISEASE - GFR >OR= 60CHRONIC KIDNEY DISEASE - GFR 15 - 59RENAL FAILURE - GFR <15 Est. GFR calculation based on the MDRDstudy equation, which assumes a steadystate for creatinine. Est. GFR should notbe used for medication dosing. ID Date Data Source [id number] 04/05/2021 02:58:47 PM EDT [facility] Name Value Range Interpretation Code Description Data Jazmín rce(s) Supporting Document(s) WBC 7.7 10*3/uL (4.1-11.0) [facility] [place] RBC 3.26 10*6/uL (4.60-6.10) L [facility] HGB 11.0 g/dL (13.5-18.0) L [facility] HCT 32.9 % (41.0-53.0) L [facility] MCV 101.1 fL (80.0-95.0) H [facility] MCH 33.8 pg (27.0-32.0) H [facility] MCHC 33.5 g/dL (32.0-36.0) [facility] RDW 15.6 % (10.5-14.5) H [facility] PLT 186 10*3/uL (150-450) [facility] MPV 9.3 fL (7.1-10.7) [facility] ID Date Data Source [id number] 04/05/2021 08:55:00 AM EDT [facility] Name Value Range Interpretation Code Description Data Jazmín rce(s) Supporting Document(s) SARS coronavirus 2 RNA [Presence] in Res piratory specimen by MATHEW with probe detection NOT DETECTED [facility] This lab was reported by [facility]. ID Date Data Source [id number] 04/05/2021 02:36:23 PM EDT [facility] Name Value Range Interpretation Code Description Data Jazmín rce(s) Supporting Document(s) SPECIMEN DESCRIPTION [facility] COVID 19 RESULT (NDET) [facility] [place] NEGATIVE COVID-19 RESULTS DONOT PRECLUDE COVID-2019 INFECTION ANDSHOULD NOT BE USED THE SOLE BASISFOR PATIENT MANAGEMENT DECISIONS. COMMENT [facility] THE [place]. FDA HAS MADE THIS TEST AVAILABL EUNDER AN EMERGENCY USE AUTHORIZATION(EUA) FOR THE DETECTION AND/OR DIAGNOSISOF THE VIRUS THAT CAUSES COVID-19.THIS ASSAY AMPLIFIES AND DETECTS TARGETDNA USING CRATE ICER- MEDIATEDAMPLIFICATIONTESTING PERFORMED ON GiveForward PANTHER FIRST TEST [facility] [place] of [place] [employer] IN HLTHCARE [facility] [place] SYMPTOMATIC [facility] [place] of ANGEL Y DATE OF SYMPT ONSET Lab [facility] of [place] HOSPITALIZED [facility] [place] [facility] [place] [facility] [place] CONGREGATE CARE SET Lab [facility] [place] [facility] [place] [facility] [place] ID Date Data Source [id number] 02/01/2021 12:06:00 PM EDT [facility] ([facility] Name Value Range Interpretation Code Description Data Jazmín rce(s) Supporting Document(s) Carotid Ultrasound Bilateral Laboratory test result [facility] ([facility]) ID Date Data Source [id number] 01/06/2021 02:55:00 PM EDT [facility] Name Value Range Interpretation Code Description Data Jazmín rce(s) Supporting Document(s) SARS coronavirus 2 RNA [Presence] in Res piratory specimen by MATHEW with probe detection NEGATIVE [facility] This lab was ordered by [facility] a nd reported by [facility]. ID Date Data Source [id number] 01/01/2021 11:47:06 AM EDT [facility] Name Value Range Interpretation Code Description Data Jazmín rce(s) Supporting Document(s) Progress Note [facility] AWAVDf1bOyDVDuMf66/DHGgtTCNqm0CtTQmvERj3FEyzKRBtD4HaHKD1hK0gJZP9ZBqGRbQfRdLgRPE[facility] [file] AgICAgICAgICAgICAgICAgICAgICAgICAgICAgICAgICAgICAgICAgICAgICAgICAgICAgICAgICAgIC AgICAgICAgICAgICAgICANCiAgICAgICAgICAgICAgICAgICAgICAgICAgICAgICAgICAgICAgICAgIC AgICAgICAgICAgICAgICAgICAgICAgICAgICAgICAg ICAgICAgICAgICAgICAgICAgICAgICAgICANCiAgICAgICAgICAgICAgICAgICAgICAgICAgICAgICAg ICAgICAgICAgICAgICAgICAgICAgICAgICAgICAgICAgICAgICAgICAgICAgICAgICAgICAgICAgICAg ICAgICAgICANCiAgICAgICAgICAgICAgICAgICAgIC AgICAgICAgICAgICAgICAgICAgICAgICAgICAgICAgICAgICAgICAgICAgICAgICAgICAgICAgICAgIC AgICAgICAgICAgICAgICAgICANCiAgICAgICAgICAgICAgICAgICAgICAgICAgICAgICAgICAgICAgIC AgICAgICAgICAgICAgICAgICAgICAgICAgICAgICAg ICAgICAgICAgICAgICAgICAgICAgICAgICAgICANCiAgICAgICAgICAgICAgICAgICAgICAgICAgICAg ICAgICAgICAgICAgICAgICAgICAgICAgICAgICAgICAgICAgICAgICAgICAgICAgICAgICAgICAgICAg ICAgICAgICAgICANCiAgICAgICAgICAgICAgICAgIC AgICAgICAgICAgICAgICAgICAgICAgICAgICAgICAgICAgICAgICAgICAgICAgICAgICAgICAgICAgIC AgICAgICAgICAgICAgICAgICAgICANCiAgICAgICAgICAgICAgICAgICAgICAgICAgICAgICAgICAgIC AgICAgICAgICAgICAgICAgICAgICAgICAgICAgICAg ICAgICAgICAgICAgICAgICAgICAgICAgICAgICAgICANCiAgICAgICAgICAgICAgICAgICAgICAgICAg ICAgICAgICAgICAgICAgICAgICAgICAgICAgICAgICAgICAgICAgICAgICAgICAgICAgICAgICAgICAg ICAgICAgICAgICAgICANCiAgICAgICAgICAgICAgIC AgICAgICAgICAgICAgICAgICAgICAgICAgICAgICAgICAgICAgICAgICAgICAgICAgICAgICAgICAgIC AgICAgICAgICAgICAgICAgICAgICAgICANCjw/zBNxE1vhxWUmtjZ5L2waTy9AGx0FJM8kl1CnXZLmFR uddpKsQeaVViDiWZBoDnxSDpl2DDtwXH6OlEOmT8Ap C1EmOFymJD0TFQZaJXFrdVNwCVViNHBaWwA4ZSOnUBydZV4UdIMnYLibQYSzAPJxLgOxNVQxCIHxKICc RYUzRWUMDRGbRSWjHcHxZKhsNT7Kf1AbyCW5BZt+Cb9ICY1pi0DdBCniRLLrUB9iyo2EBKyHKjVjL1Vw tpE1GVOrXKHfYk7EQFMjWNUkkMZiQNEkZMIBJhViB2 GgbJ99XKNEYf5+AQewcnWdYbfRVtRmAKEtm0HfNPm7SN1AGCIuIZu9tDItDRPrB4Vtd0JaYi61HYUlHg aiTOjjoNPtdBZPBZ3jE6QadEIymduvEITxIJKnEB3vHP9mYDJqREIiDyA0ECZZFT2WRXSkNJOdpSCqCL EbEOSKUE0PDYguNMH2TBNwioJnuBPlAKifGY2UDPNf bnQgMzAgMCBSDQo+Qj1PVX0ij2QrGNtgTrOhHP2doc7YMQmCGlKjA6G7sYJlA5P9KFjgRr4AIIZzMUZp KpqsALOFHAzaKU7HJX3ubzS4FM4DbICxBVQeYTKstRGzIVn6Q08ltNUzHGiaSO8XECK+Shawn+Rc2CTPHc HNOuJKRyMyWhVQUTSyCqW6PmK4OOd4AxZ9WtUD57sF sqwpGlUQjyVO9EKS1tIVLxBTIYHL4UbQIawN9pxwYeVPIrMYAOJsAnW28chHJaVLRzWKC8LWBbIb1IRF XbL8OsxwAfxOicqkKcOYGyKKZZTP0HLWsoazFttFVqzQsrLW65cXkqHT8PJa8XCeHoED0gey1TuASjAd 6LYNTuGh2RAMHaHANhSTZjLHM5PZQnTkZfUXdrFVVq PFSjKQU3AXGsZXOhOC1UQgNaIUZeHzT3NmCvAFYuWUBzcf1LVKCiRQPaAuDdAcWqLYRrAQDvBQzaDEVv PCTjDPD4URKtYOIpLQ0ZQyHgTSSrRYY3UgSnGPJoEHPpda4SCDNbKFScIxqwUTPbIYHuIWZjHSvoTXNh QQK6UEAxMUEjKGHeEJ3PNrSyHEQfACkkLVYcFKXzEM Ubrw8HFTJpMLFhLHz0DjKoFCNzSMEtUFjcVBBtOZGuYSthZDZuSUOwBX5NKeEtKGRrYAO1QEifXXHqEU Tlem4DPAGsBCFeZcY5DXEkTRFlEFXuTFkbIMCmRWB4SEg7WUNmAOUxYQ7BBnItLBNqFRJsSDJgMKUaWK Muvg8AYMUxUMKjPcY5UBFqNAZbLVJuELtqDYDvYYZ9 OnW8DBRoWTKuFW2UMwFsUZMrTCQ4BmNuCDUjGUBvlp3QSMLdPBWiQaK9QMNfXJDpZMCgOIlvUISqWJK1 DqtsRLMkORKpXE3MHwWdRDKdFIz4OBMlUXCpLRJufy6QNOGiOZZqMBAvHPDvFOVkQFUbIUtnSPCyVGE6 SaE1BKPsCTFxPA0OXaYdDSWuDik3MMRuKNFsCEFvse 6HKGGiKGIwPVB6GGFuQJFoXJXbXCwpBHUdQDUxRoVlFQUvFWDrZS1RSqLkAAGaFlFsDGRbRNBdXIXllt 4EZLGwRCRuCIX5WbScWKKpSUTjCJikPYBxLUWtZCAqZJXlTYXlTH8RRqOxIXHfRwB7ZhhiLLJfJUTqny 0KMDAwMDAzMzQzMSAwMDAwMCBuDQowMDAwMDMzNTAy GVOcZSAlVK7EHuEjLMJhHfB6NUYmIXUtWVBdke6UdWRbiDrrcl9DIYsFGv2UqSlqCWSyHCxyKq3llHNp ZiAjXOFKNu1NesAyDVPsKJJFGKxiRXCeLDUsYES2ZMBuLbZ1PqPbItLuCTKvVpJhGRC9QRK4ZUcxGvP0 K0UdTbz6LlRzOfVlAjZqJDLpJeS1ZjLlOJJsCMgxIW I+IM6kWYn+Go2Os2OpuaM4pfDuKDasAwfkYS5SWCLJA7ITKi== ID Date Data Source [id number] 12/24/2020 06:48:00 PM EDT [facility] Name Value Range Interpretation Code Description Data Jazmín rce(s) Supporting Document(s) CREAT RANDOM URINE 69.9 MG/DL [facility] No Normal Ranges Available for this Pro cedure. MICROALBUMIN,URINE 208.0 MG/L [facility] MICROALBUM/CREATININE RATIO,UR 297.7 UG/MG CR 0.0-30.0 H [facility] ID Date Data Source [id number] 12/24/2020 11:40:00 AM EDT [facility]) Name Value Range Interpretation Code Description Data Jazmín rce(s) Supporting Document(s) Hemoglobin A1c/Hemoglobin.total in Blood 5.6 Normal Hgb A1c MADDISON (Jina) ID Date Data Source [id number] 12/16/2020 01:38:46 PM EDT [facility] IR PERCUTANEOUS CHOLECYSTOSTOMY TUBE INS ERTIONFINAL RESULTInterpreted by:Glo Sánchez, TANOROCEDURE: CHOLANGIOGRAM.HISTORY: 75-year-old male with history of percutaneous cholecystostomy tube, presents for cholangiogram.COMPARISON: Cholecystostomy tube placed on 10/14/2020.TECHNIQUE:Operators:Attending physician: Izabel Chapin M.D.Resident: Chris Bray M.D.Sedation: No IV sedation was utilized.Fluoroscopy time: 0.9 minutesFluoroscopy dose: 8 radiographic images were obtained.Informed written consent was obtained. Prior to the start of the procedure a "Timeout" was zelaya d, confirming the patient by name, medical record number and date of , and the procedure to be performed was confirmed. All procedural staff within the room are in agreement.PROCEDURE/FINDINGS:The patient was positioned supine and the upper abdomen and right flank as well as the indwelling biliary catheter(s) was prepped and draped with sterile technique. Dry Transfer Man image demonstrates right percutaneous cholecystostomy drain in place. Cholangiogram was performed through the drain demonstrating multiple filling defects within the gallbladder. Contrast is seen flowing through the cystic duct, common bile duct, and into the bowel. The biliary drain was left in place.The patient tolerated the procedure well and there were no immediate complications.IMPRESSION: Cholangiogram via indwelling cholecystostomy tube showing patent cystic and common bile ducts. Cholelithiasis.This document has been electronically signed by Izabel Chapin MD on 12/16/2020 1:36 PM Name Value Range Interpretation Code Description Data Jazmín rce(s) Supporting Document(s) ID Date Data Source [id number] 12/11/2020 01:06:00 PM EDT [facility] Name Value Range Interpretation Code Description Data Jazmín rce(s) Supporting Document(s) SARS-CoV-2 RNA 2019 nCoV Real-Time RT-PCR: NOT DETECTED [facility] This lab was ordered by [facility] and reported by [facility]. ID Date Data Source [id number] 12/11/2020 07:19:25 PM EDT [facility] Name Value Range Interpretation Code Description Data Jazmín rce(s) Supporting Document(s) Specimen source [Identifier] of Unspecified specimen [facility] SARS-CoV-2 RNA 2019 nCoV Real-Time RT-PCR: NOT DETECTED [facility] Assay Performed [facility] Patients first test for [facility] 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 [facility] Patient has symptoms related to [facility] When did you start to experience these symptoms [Date and time] [Phen X] [facility] Patient was hospitalized because of this condition [facility] patient was admitted to ICU for [facility] Patient resides in a congregate care setting [facility] status [facility] ID Date Data Source [id number] 12/11/2020 01:05:20 PM EDT [facility] Name Value Range Interpretation Code Description Data Jazmín rce(s) Supporting Document(s) Progress Note [facility] WLPMFv6rMmLHWoKo78/EKCayNGRns5EmTJfoXMp1RRflJOZsX4SjJOO0cZ0fYKU1FFiPXnWhEqGvFEZl lb [file] secretary specialist+H9NuCF1+aUYG7eNlX0kRIb+BK27geUvZ5UB2723cdwm09hprBkIB67Smxq/sF+/u3lRxxfm57q+t6 [file] ICAgICAgICAgICAgICAgICAgICAgICAgICAgICAgIC SmIJAoDHUqKKSwWRFgBCMgEBVjDXPnNH0RNYHkMYJoUKWmYSGdLFNhCNYvNWYcPECfCDIfYMFySCTrOD AgICAgICAgICAgICAgICAgICAgICAgICAgICAgICAgICAgICAgICAgICAgICAgICAgICAgICAgICAgIC CwOLCuVZ5RRRQqVEMkYXJkAOUoBCWaBBLeEVEfAPTs ICAgICAgICAgICAgICAgICAgICAgICAgICAgICAgICAgICAgICAgICAgICAgICAgICAgICAgICAgICAg XADyDJAoSKGlICCtXHVpNE2DPHTrCEPaRTWcLEWuUFIjDRHuLQGhJHWiWTTdXEVhVLSxSMAqYKUrURLn ICAgICAgICAgICAgICAgICAgICAgICAgICAgICAgIC HiSHFlFHRvEPYfSXWvLQFoHXEuFXIaHTDbVC5FHMJoPSTwRTVcREMoFZIjQZTgPRXwYQErRUFiGNKlCA AgICAgICAgICAgICAgICAgICAgICAgICAgICAgICAgICAgICAgICAgICAgICAgICAgICAgICAgICAgIC BoKAEyERWxVB1HLZDuAIAqGSZzRLPlGYGqUXFePCNd ICAgICAgICAgICAgICAgICAgICAgICAgICAgICAgICAgICAgICAgICAgICAgICAgICAgICAgICAgICAg XZVcJKAyEWRbPFCbCRHsUYGaSF7KUTBjRKThIVMmGYDxCXFnIRZkJQWhOGBwYBEyVYYcNOLaMUUeMIEb ICAgICAgICAgICAgICAgICAgICAgICAgICAgICAgIC ErHSVwNEMkOBCtQGCcYBAeMJAfUPBkSWWgCTFzOK6WUBYgIHIlLVUdRMYkVUEuXUNlPXYjUPQaDQWzDI AgICAgICAgICAgICAgICAgICAgICAgICAgICAgICAgICAgICAgICAgICAgICAgICAgICAgICAgICAgIC UcNMXeKGDsDEKwIU5VXFXyQNJpWZRyXMArMUYgRGNm ICAgICAgICAgICAgICAgICAgICAgICAgICAgICAgICAgICAgICAgICAgICAgICAgICAgICAgICAgICAg OPWnYJMeCQAuMMXtOTXrCSHgHRQtQK0ALHTsZVMbZUBvAZPbOWZzVZYcFERzXKMcONMrZTZrKBFdRMPq ICAgICAgICAgICAgICAgICAgICAgICAgICAgICAgIC YhLSKuWLAuAAUpEYBsYLEmHHJhEFXrSNDiIWJuWJMpQK8AWH88oNAfi8X2DOBbDC3tdhx/As8JQInsvh BipCAwWT6COzBuZJ5red5UReCrQX7con8QGWoKFuAcI2U9pZXzBJTiFHJGOaCdF16uCNlfNf02VQzxZD XsKdMxDSh9Ld3ZGmBpS5zzUKIeKsC5AOBcEtEwUXzj QO2Ea6HfcTLaZUm+Pz5MXA2sa7DpWHbiAEVuFL0vrb7GWNrUZuPhZ8FwxzD4TGAoHDNbHr6HPRDwLPZb lXCrCSKwHXSJAeVtW2ZleL32ANRIWr8+HRxxiaLnMdcDWvVgNTZwk1FpRUw7DP6KVDBdTKa8jWKfKSTg A4Rdd0QtBr71QOXzJvrwNjKtfuEqBWUHuyjtT6YlnK otMc6tKYKhMP3xJI6nFUVaCFKwKpVrTKTOMM6MHKOeFPEowUJbCFNaAHCUYY5NREqhAAI5HCDkhtBtzJ PfLElmMP4LFVDphwYsRTawBUVWHVx+Aw6UEQ8eq2ZaPYvpMBAgRP9tze4YRVeOUaTcJ8P3wLZgZ8Z8RX ooEs1XOUNgKUSiENgpFQDDWBhnLO9ODZ5kyiN1KB1Z xKQkFDAuHWKsgPFtOXn8G04naIWgAAxvSN0WPVO+Shawn+Pv5ZRFGrXHNoOYWmPuDgLDCMHuUiW0YpU1XM m7QqW2MpUF29kWpinbRdYFfbRN4NPP0nHMUhWTMDIE3LaVKiwG5vdjOzYYUdFDQNCdTqH91gtRRtCRWk VKB6SLJaMz1CJILjG0KefbLowTejadOdBMUvDZVEKX 4QTFblzmNjvXDonCmeIW36kItjTR1UFe2VVyWnRN9wuv0WaGLrJk7JIEHsXk1RZNKlHBBdXOVqHSE6WO WbZgPqKKuyRSFrMVZxQHN6MXBqEROvGU7KFbQvLWPjHZnlUKPxVAKuLUCbwn7MSDHjDAZvHVIgVLKcHL ZrEFMbWIwbGHSdAUXvHPB1BTTmACMoEH2RFsZgQASs YJAtHbTrSFMmVOOply4RASFhFEMxQkVoQlXqCKAyNNIfBHfcVFWyYXYdVdo5UMUxOSMdSC0HInWcJFFf YDF0YPNiGKPxDWFgss0VMLMqGRQtSuP0SBBsXNGaSPOnTHxqVOEtFLO2ExH1QTTtGALwDE0BNnFuOEYy RNS6YmRbOOHrTXPpmh0RJNLoZDJaGWEkDMAwIYDiDY MjFJowSCHfLCA3HaAsVUYaRDNuLN7ENgTbHBUeUAF7XoovEXCtCGGilg2WZTVbWGOnNup1MUDcPSCnIH WoZJamEHIxNNC5MKX1PWFcWVCkPZ7OKgFvVWEiFBpdMmUtWMJgOFCgkb9ABUAoTRDmTrH5QSFaHDFoIH WvZHgdPXXzHLF4HOGzUXYcHBWqXX1QJqTbATOwOQfn ATMpTCXiWFEuje1UVHAeLAMnJQJmSTQsMNVkCVVtLPg7nuBewVUvAJr9LM9HN9ZylzYjSpWOUh6Hh793 UFWqHITsKb2GQ8drSz6wKJOaDACORh3IXKw7TOU5YAA7JXEoEGndHnQlCSK7MsohDaq8OSU0ShLuWKJ+ CJj5PbisLpFpD7H0GGO4HAOiFLo7TDZ0SCMpUwpcS6 XgGo2zVZXCSn7+VZylxUMplXbfYNETBvB3GHk2GDjfSPQHPv0V ID Date Data Source [id number] 11/26/2020 04:27:58 PM EDT [facility] Name Value Range Interpretation Code Description Data Jazmín rce(s) Supporting Document(s) Progress Note [facility] JSMZIn7rBzWXDqYt28/PEVhhDXVri1FyZQdcDFg2HQghSKCsB1HiYFE1pX7pJTR1QAzPDjIcJnReUHO4 lbm [file] 4CYJUYQ9ZWYu== ID Date Data Source [id number] 11/25/2020 12:34:00 PM EDT [facility] Cardiology [address] [place] [address], [address] [place] [address] Cardiology Note : [id number] Signed Patient: Lory Winkler Acct:[id number] Visit Date: 11/25/20 : 1945 Cardiology HPI History of present illness History of present illness: Mr. Lory Winkler is a pleasant 75-year-old gentleman [facility] He was last evaluated in March of 2020. Mr. Winkler has a past medical history that is significant for coronary artery disease. He is status post multiple percutaneous coronary interventions to a dominant right coronary artery. In February of 2013, Mr. Winkler underwent coronary artery bypass grafting. His bypass grafts included a HERNANDEZ graft to the LAD and a EMILY graft to the right coronary artery. Mr. Calderon postoperative course was complicated by a sternalwound infection that was treated with debridement and antibiotics. Also Mr. Winkler developed a GI bleed after his bypass surgery secondary to internal hemorrhoids. Mr. Winkler's other medical problems include hypertension, grade III diastolic heart dysfunction, mild mitral and mild tricuspid regurgitation with resting pulmonary pressures of 36 mmHg, hyperlipidemia intolerant to statin medications, type 2 diabetes mellitus, stage IV chronic renal insufficiency, myelodysplastic syndrome requiring Procrit injections based upon his hematocrit, peripheral vascular disease with 75% stenosis involving the left internal carotid artery as well as iliofemoral disease, recurrent GI bleeding when he was prescribed either antiplatelet therapy and/oranticoagulants, status post Del-en-Y gastric bypass procedure performed in June of 2016, cataracts and osteoarthritis. In addition, since last been seen in our office, Mr. Winkler was admitted to [facility] in [place], [place] in October of 2020 with symptoms of abdominal discomfort. He was diagnosed withacute cholecystitis along with gallstone pancreatitis. He underwent an MRCP which demonstrated cholelithiasis and thickening of the gallbladder wall. He underwent placement of a biliary drain. He was treated with broad-spectrum antibiotics. He developed C. difficile colitis and was placed onoral vancomycin. During this time, his renal function slightly declined. He was volume resuscitated and developed symptoms of fluid retention that responded to intravenous furosemide therapy. Mr. Guevara ga's blood pressure became elevated and hydralazine was added to his medical therapy. He made slow but sure progress and was eventually discharged to home. He has a biliary drain in place. Mr. iWnkler reports that from a cardiac point, he is feeling well. He reports no signs or symptoms of ischemic heart disease and/or congestive heart failure. However, he is not very active. He has lost 5.5 kilograms in weight and now weighs 83.5 kilograms with a BMI of 29.7. Intake Vital Signs 11/25/20 12:35 Height 5 ft 6 in Weight 83.574 kg BMI 29.7 BP 148/60 H Blood Pressure Location Left Arm Position Sitting / Chair Pulse 78 Pulse Source O2 sat Monitor Temp 98.2 F Temp Source Temporal Artery Scan Pulse Oximetry (%) 98 Oxygen Delivery Method room air Cardiology Intake Patient Status Have you had an UC/ED visit and/or been admitted to the hospital since your last visit?: Yes Have you been diagnosed with COVID-19?: No Recent Travel Travel Outside of the country in last 30 days?: No Mask given: Yes Visit Reasons: 8 mo f/u - TXT CONF Nurse Note: Patient presents today for a follow up visit. He states from a cardiac standpoint, he has been doing well. He states last month he was admitted at [facility] for issues with his gallbladder. 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: No Accompanied by: Spouse Primary Care Physician:: Carolyn May , DO Have you smoked within the past year: No Allergies lactulose Allergy (Unknown, Verified 05/13/19 15:15) unknown Xiehzoy-Tct-Asz Reductase Inhibitor Adverse Reaction (Intermediate, Verified 05/13/19 15:15) myalgias ____ Home Medications - Last Reconciled 11/25/20 by Carolyn Davis ascorbate calcium (vitamin C) 500 mg tablet 500 mg PO DAILY calcium carbonate 600 mg(1,500 mg)-vitamin D3 800 unit chewable tablet (Caltrate 600 plus D) 1 tab PO BID carvedilol 25 mg tablet 25 mg PO BID cholecalciferol (vitamin D3) 125 mcg (5,000 unit) capsule 5,000 units PO BID cyanocobalamin (vitamin B-12) 500 mcg tablet 500 mcg PO QDAY ezetimibe 10 mg tablet 10 mg PO QDAY ferrous sulfate 325 mg (65 mg iron) tablet 325 mg PO BID furosemide 20 mg tablet 20 mg PO DAILY insulin glargine 100 unit/mL (3 mL) subcutaneous pen (Basaglar KwikPen U-100 Insulin) 30 units subcut DAILY irbesartan 300 mg tablet 300 mg PO DAILY lactobacillus combination no.8 (Adult Probiotic) PO DAILY minoxidil 2.5 mg tablet 2.5 mg PO BID multivitamin (Chewable-Josie) 1 ea PO DAILY nitroglycerin 0.4 mg sublingual tablet 0.4 mg sublingual DIRECTED pantopr azole 40 mg tablet,delayed release 40 mg PO DAILY History of Smoking/Tobacco Use: Former Smoker Tobacco Product: Cigarettes Annual Influenza Vaccine: Yes Pneumococcal Vaccine (+65): Yes Have you received the Covid-19 vaccine?: No Immunizations up to date: Yes Risk Assessment Predictor Tool (RAPT) Which gait aid do you use (more often than not): None PFSH - OH PFSH - OH Medical History Bilateral carotid artery disease 60% stenosis CAD (coronary artery disease) post multiple percutaneous interventions to a dominant right coronary artery. In February 2013, Mr. Winkler underwent coronary artery bypass grafting. His procedure was complicated by a sternal wound infection that improved with antibiotics and a lower GI bleed secondary to internal hemorrhoids. His bypass grafts include a HERNANDEZ to the LAD and a EMILY to the RCA Chronic renal insufficiency, stage II (mild) with baseline creatinine clearance of approximately 60 cc/min. Diabetes mellitus type 2 Diastolic dysfunction Erectile dysfunction Glaucoma Hyperlipidemia Hypertension Osteoarthritis involving his hips Vitamin D deficiency Qvzyj-Llsukiqbe-Yosem (WPW) pattern on his baseline electrocardiogram. Surgical History History of - coronary artery bypass grafting s/p CABG in February of 2013 with his bypass grafts including a HERNANDEZ to the LAD and a EMILY to the RCA. His post operative course was complicated by a wound infection that improved with antibiotics and a lower GI bleed from hemorrhoids. History of bariatric surgery by Dr. Len Kelsey in June of 2016 Stented coronary artery Multiple interventions to the RCA Family History Other Diabetes mellitus HTN (hypertension) Social History Marital Status: Occupational status: retired Alcohol Use: None Substance Use: never Cardi ology ROS Const Reports fatigue and Reports headache(s) (Occasional) ENT Ears, Nose, Mouth, Throat: reports nasal congestion (Occasional) Card Cardiovascular: Reports Shortness of breath with activity (that are stable) Resp Details: Negative for cough, hemoptysis or wheezing. GI Reports bloating (abdominal) and Reports heartburn (Occasional) Details: Negative for hematochezia or melena Details: Positive for nocturia two to three times at night. Negative for hematuria or dysuria Musc Reports back pain (Occasional, lower as well as hip and knee pain) Neuro Reports headache(s) (Occasional) Details: Positive for neuropathic pain involving his lower extremities. Psych Details: Positive for feeling depressed due to his medical problems. Endo Reports fatigue Cardiology Exam Const Nutritional Appearance: overweight Orientation: alert and oriented x3 Other: Mr. Winkler is a pleasant 75-year-old who appaears his stated age Skin Normal color: Yes (without evidence for v enous stasis dermatitis) Neck Neck: normal visual inspection (Without evidence for jugular venous distention) Other: The carotid upstrokes on the left were delayed and there was a left carotid bruit. Chest Other: He is status post a sternotomy. Resp Auscultation: diminished lung sounds (otherwise clear. No rales, rhonchi, or wheezing heard) Cardio Rate: regular rate Rhythm: regular rhythm Heart Sounds: Yes S1 normal and S2 normal Palpation: normal PMI Other: With an S3 gallop and a 1/6 systolic murmur best heard at the apex of the heart radiating to the axilla. There is no S4 gallop. There is no click or rub. GI Palpation: soft Other: He has a biliary drain in place Extrem General: no clubbing, cyanosis or edema (There is no Homans' sign and/or palpable cord) Pulse: Dorsalis pedis R/L (diminished) and Posterior tibial R/L (diminished) Assessment Plan (AMB) Assessment Plan (1) CAD (coronary artery disease): Code(s): I25.10 - Atherosclerotic heart disease of poarch coronary artery without angina pectoris (2) Status post percutaneous transluminal angioplasty (PLAYERS ASSISTANT): Code(s): Z98.62 - Peripheral vascular angioplasty status (3) Status post coronary artery bypass grafting: Code(s): Z95.1 - Presence of aortocoronary bypass graft (4) Hypertension: Code(s): I10 - Essential (primary) hypertension (5) Diastolic heart failure: C ode(s): I50.30 - Unspecified diastolic (congestive) heart failure (6) Hyperlipidemia: Code(s): E78.5 - Hyperlipidemia, unspecified (7) Type 2 diabetes mellitus: Code(s): E11.9 - Type 2 diabetes mellitus without complications (8) Chronic renal insufficiency, stage IV (severe): Code(s): N18.4 - Chronic kidney disease, stage 4 (severe) (9) Peripheral vascular disease: Code(s): I73.9 - Peripheral vascular disease, unspecified Problems Did you add a problem (diagnosis code) to the patient?: Yes Plan: From a cardiac point, I think that Mr. Winkler is stable. Since last been seen in our office,he was admitted to [facility] in [place], [place] for cholelithiasis/cholecystitis as well as gallstone pancreatitis. He currently has a biliary drain in place. At this time, I recommend that we continue to promote the importance of lifestyle intervention through nutrition, weight management, and exercise. I have asked Mr. Winkler to avoid seasoning hisfoods with salt, to avoid processed foods, to avoid simple carbohydrates, and to avoid kno-leaocikeuauoo-wkcstuoczsej drugs. For now, I recommend to continue with the current doses of carvedilol, irbesartan for his renal protective properties, minoxidil and hydralazine. I recommend to continue with the current dose of furosemide. Mr. Winkler is intolerant to statin medication. I recommend to continue with the current dose of Zetia. If his LDL cholesterol is greater than 70, then I recommend that we add a PCSK9 inhibitor to his medical regimen. I recommend to continue with current diabetic regimen. In the past when prescribed antiplatelet therapy and/or anticoagulant therapy, Mr. Winkler GI bleeding. For now, I recommend that we avoid antiplatelet therapy and/or anticoagulant therapy due to the risk of bleeding. Mr. Winkler will followup with Dr. Perdomo who follows his carotid artery disease and iliofemoral disease. His oncologist is Dr. Janae Roberts and his adobe architect is Dr. Nellie Guevara. Mr. Winkler has a follow-up appointment in our office in 6 months time or sooner if clinically indicated. Comment: Obed Loera transcribing the following service on behalf of Dr. Durga De Leon on 11/25/2020. Other Medications: New: irbesartan 300 mg PO DAILY 90 tabs 3RF hydralazine 25 mg PO TID 270 tabs 3RF Coding Exam Detailed Diagnoses CAD (coronary artery disease) I25.10 Status post percutaneous transluminal angioplasty (PLAYERS ASSISTANT) Z98.62 Status post coronary artery bypass grafting Z95.1 Hypertension I10 Diastolic heart failu re I50.30 Hyperlipidemia E78.5 Type 2 diabetes mellitus E11.9 Chronic renal insufficiency, stage IV (severe) N18.4 Peripheral vascular disease I73.9 Signed By:Durga De Leon MD <<Signature on File>> Signed Date/Time: 11/26/20 0557 Co-Signer: Co-Signed Date/Time: Initializing User: Durga De Leon MD 1234 [id number] 1234 Name Value Range Interpretation Code Description Data Jazmín rce(s) Supporting Document(s) ID Date Data Source [id number] 10/18/2020 05:11:31 PM [facility] Name Value Range Interpretation Code Description Data Jazmín rce(s) Supporting Document(s) Discharge Summary [facility] BEHYFq2sAsGMUlFd10/EOFlzFDSgr1KkWBkaKVp4RPaiZIQlD8PwTBO6yE7eECJ5QHpLFmIrXsMsFbM9 lbm MuGjyUUoDoBAVcBzxWSvHdHUexHbtysPNcVA5KnMD5RVBxU56xOQEeHZQbZ8AbZQClKCk+Lz3HEQSeyZ LmQC7AUrzB9W6ez1sNRj8+yF6GIcdw3DRZuMTo/uYmaXyHs+vabosC/xFPxS5CnsuW5HA//dPcHDoY9b gVbKXVRD9NskMwcI78cxEFbai//ytXAeL6uap/rf+M ElddzdTf/5aednq5/Ym1B5dHbEM0lRPHT3C/aigNM720OHirMyqKck6eq39wSAe+nx80numnfJWaIv+O G8oU7i03PL6Ol+uZn60AS0XHWk9e/kElk3qUJ5X0K/D9D7XrPT61Bru5wbzRQjNsy93zyCGD4L1hXtq4 tpUTI1S71HCHfNZGf3tJ/KbfLTtDvhh6P/d654QXgu 1vnq9abgYOP1H0y4DaCvbhAPoEKaaxY85b0vhJx5qZ3I7Gfc4dptAOC8nIp4v4ZURwHUIbkjCtRq85yG 0scjUIc+N9rVGWzG2IR6iGSYbkyO1nxicZdmrcoY7qp2r/xQhHRK4PAsyrRYGMKxR8HP8rDi2+9409Ug zlQ3e25OkKhxxWqZE5Qaoq/jWxNaWE0ANvj8xvwZ8z atjVp2tyz7QE1vD7XxWskY0G/V+462vCBfx5J6LuzHv/tVoqQxfaHOe79EXGsf+Le6qs88q9Foc87kRs u7tdLY5VeR6rWjHjuIildC3KjnTnsGjntFmVUnUlvluUOqmO1uNWreQd94zD1DasYRZI050YpRikAPbV pIhjdeXg6BfjcC5DUcSYteWhhbhgqRWRoLVrwJhO36 /Veena/BaT4ZcTUpogkrjyiRfaqbfA3Rh2iEM0cEC6iP6spDuN2m6D4phiifTqG2G33quQ/V5dR+4PWCqE [file] qRbnPRDCXmW2LtQ7IYncOPESRe8N ID Date Data Source [id number] 10/18/2020 12:44:[address] [facility] Value Range Interpretation Code Description Data Jazmín rce(s) Supporting Document(s) Glucose [Mass/volume] in Capillary blood by Glucometer 155 mg/dL 70- 140 H [facility] ID Date Data Source [id number] 10/18/2020 08:50:[address] [facility] Value Range Interpretation Code Description Data Jazmín rce(s) Supporting Document(s) Glucose [Mass/volume] in Capillary blood by Glucometer 119 mg/dL 70- 140 [facility] ID Date Data Source [id number] 10/18/2020 04:35:[address] [facility] Value Range Interpretation Code Description Data Jazmín rce(s) Supporting Document(s) Albumin [Mass/volume] in Serum or Plasma by Bromocresol green (BCG) dye binding method 3.1 g/dL 3.5-5.2 [facility] Bil[facility].total [Mass/volume] in Serum or Plasma 0.8 mg/dL <1.2 [facility] Bilirubin.direct [Mass/volume] in Serum or Plasma 0.5 mg/dL <0.3 H [facility] Alkaline phosphatase [Enzymatic activity/volume] in Serum or Plasma 116 U/L 40-129 [facility] Aspartate aminotransferase [Enzymatic activity/volume] in Serum or Plasma 31 U/L <40 [facility] Alanine aminotransferase [Enzymatic activity/volume] in Seru m or Plasma 62 U/L <41 H [facility] Protein [Mass/volume] in Serum or Plasma 5.9 g/dL 6.4-8.3 L [facility] ID Date Data Source [id number] 10/18/2020 04:35:[address] [facility] Value Range Interpretation Code Description Data Jazmín rce(s) Supporting Document(s) Magnesium [Mass/volume] in Serum or Plasma 1.9 mg/dL 1.6-2.4 [facility] ID Date Data Source [id number] 10/18/2020 04:35:49 AM EST [facility] Name Value Range Interpretation Code Description Data Jazmín rce(s) Supporting Document(s) Bicarbonate [Moles/volume] in Serum 21 mmol/L 22-29 L [facility] Chloride [Moles/volume] in Serum or Plasma 102 mmol/L 98-107 [facility] Creatinine [Mass/volume] in Serum or Plasma 2.88 mg/dL 0.70-1.20 H [facility] Glucose [Mass/volume] in Serum or Plasma 122 mg/dL 70-140 [facility] Potassium [Moles/volume] in Serum or Plasma 3.6 mmol/L 3.4-5.1 [facility] Sodium [Moles/volume] in Serum or Plasma 136 mmol/L 136-145 [facility] Urea nitrogen [Mass/volume] in Serum or Plasma 43 mg/dL 8-23 H [facility] Anion gap 3 in Serum or Plasma 13 mmol/L 8-15 [facility] Osmolality of Serum or Plasma by calculation 294 mosm/kg 275-300 [facility] Creatinine/Urea nitrogen [Mass Ratio] in Serum or Plasma 15 [facility] Calcium [Mass/volume] in Serum or Plasma 8.5 mg/dL 8.8-10.2 L [facility] Glomerular filtration rate/1.73 sq M pre dicted among non-blacks [Volume Rate/Area] in Serum or Plasma by Creatinine-based formula (MDRD) 20 mL/min/1.73m2 >60 L [facility] Glomerular filtration rate/1.73 sq M pre dicted among blacks [Volume Rate/Area] in Serum or Plasma by Creatinine-based formula (MDRD) 23 mL/min/1.73m2 >60 L [facility] ID Date Data Source [id number] 10/18/2020 05:14:53 AM EST [facility] Name Value Range Interpretation Code Description Data Jazmín rce(s) Supporting Document(s) Leukocytes [#/volume] in Blood by Automated count 12.2 10*3/uL 4-10 H [facility] Erythrocytes [#/volume] in Blood by Automated count 2.60 10*6/uL 4.6- 6.1 L [facility] Hemoglobin [Mass/volume] in Blood 8.6 g/dL 13.5-18 L [facility] Hematocrit [Volume Fraction] of Blood by Automated count 26.0 % 4 1-53 L [facility] Erythrocyte mean corpuscular volume [Entitic volume] by Auto mated count 99.8 fL 80-96 H [facility] Erythrocyte mean corpuscular hemoglobin [Entitic mass] by Automated count 33.0 pg 27-33 [facility] Erythrocyte mean corpuscular hemoglobin concentration [Mass/volume] by Automated count 33.1 g/dL 32.0-36.0 [facility] Erythrocyte distribution width [Ratio] by Automated count 15.9 % 11.5-14.5 H [facility] Platelets [#/volume] in Blood by Automated count 227 10*3/uL 150-400 [facility] Differential cell count method - Blood [facility] Neutrophils/100 leukocytes in Blood by Automated count 65 % [facility] Lymphocytes/100 leukocytes in Blood by Automated count 22 % [facility] Monocytes/100 leukocytes in Blood by Automated count 4 % [facility] Eosinophils/100 leukocytes in Blood by Automated count 2 % [facility] Basophils/100 leukocytes in Blood by Automated count 2 % [facility] Neutrophils [#/volume] in Blood by Automated count 7.93 10*3/uL 1.8-7 .0 H [facility] Lymphocytes [#/volume] in Blood by Automated count 2.68 10*3/uL 1.2-4 .0 [facility] Monocytes [#/volume] in Blood by Automated count 0.49 10*3/uL 0-0.8 [facility] Eosinophils [#/volume] in Blood by Automated count 0.24 10*3/uL 0-0.5 [facility] Basophils [#/volume] in Blood by Automated count 0.24 10*3/uL 0-0.2 H [facility] Band form neutrophils/100 leukocytes in Blood by Manual count 3 % [facility] Metamyelocytes/100 leukocytes in Blood by Manual count 2 % [facility] Band form neutrophils [#/volume] in Blood by Manual count 0.37 10*3 /uL 0-0.6 [facility] Metamyelocytes [#/volume] in Blood by Manual count 0.24 10*3/uL 0-0 H [facility] Stomatocytes [Presence] in Blood by Light microscopy [facility] ID Date Data Source [id number] 10/17/2020 09:42:11 PM [facility] Name Value Range Interpretation Code Description Data Jazmín rce(s) Supporting Document(s) Glucose [Mass/volume] in Capillary blood by Glucometer 179 mg/dL 70- 140 H [facility] ID Date Data Source [id number] 10/17/2020 05:18:[address] [facility] Value Range Interpretation Code Description Data Jazmín rce(s) Supporting Document(s) Glucose [Mass/volume] in Capillary blood by Glucometer 179 mg/dL 70- 140 H [facility] ID Date Data Source [id number] 10/18/2020 10:36:51 AM [facility] Service Cmnt XXX-Imp : NoneMicroorganism XXX Cult : Polymerase chain reaction assay is POSITIVE for C. difficile toxin B gene.Isolation precautions required- refer to Infection Control Manual.NEGATIVE for C. difficile toxin A and B by enzyme immunoassay. Polymerase chain reaction (PCR) detects toxin A and/or B genes and may be positive in patients without C. difficile disease. Enzyme immunoassay detects toxin, and if positive, is consistent with active disease. Clinical correlation is recommended for PCR-positive/toxin-negative results. Name Value Range Interpretation Code Description Data Jazmín rce(s) Supporting Document(s) ID Date Data Source [id number] 10/17/2020 12:20:[address] [facility] Value Range Interpretation Code Description Data Jazmín rce(s) Supporting Document(s) Glucose [Mass/volume] in Capillary blood by Glucometer 186 mg/dL 70- 140 H [facility] ID Date Data Source [id number] 10/17/2020 08:28:[address] [facility] Value Range Interpretation Code Description Data Jazmín rce(s) Supporting Document(s) Glucose [Mass/volume] in Capillary blood by Glucometer 149 mg/dL 70- 140 H [facility] ID Date Data Source [id number] 10/17/2020 03:06:[address] [facility] Value Range Interpretation Code Description Data Jazmín rce(s) Supporting Document(s) Albumin [Mass/volume] in Serum or Plasma by Bromocresol green (BCG) dye binding method 3.5 g/dL 3.5-5.2 [facility] Bilirubin.total [Mass/volume] in Serum or Plasma 1.1 mg/dL <1.2 [facility] Bilirubin.direct [Mass/volume] in Serum or Plasma 0.7 mg/dL <0.3 H [facility] Alkaline phosphatase [Enzymatic activity/volume] in Serum or Plasma 145 U/L 40-129 H [facility] Aspartate aminotransferase [Enzymatic activity/volume] in Serum or Plasma 33 U/L <40 [facility] Alanine aminotransferase [Enzymatic activity/volume] in Seru m or Plasma 74 U/L <41 H [facility] Protein [Mass/volume] in Serum or Plasma 6.6 g/dL 6.4-8.3 [facility] ID Date Data Source [id number] 10/17/2020 03:06:31 AM [facility] Name Value Range Interpretation Code Description Data Jazmín rce(s) Supporting Document(s) Magnesium [Mass/volume] in Serum or Plasma 2.0 mg/dL 1.6-2.4 [facility] ID Date Data Source [id number] 10/17/2020 03:06:31 AM [facility] Name Value Range Interpretation Code Description Data Jazmín rce(s) Supporting Document(s) Bicarbonate [Moles/volume] in Serum 20 mmol/L 22-29 L [facility] Chloride [Moles/volume] in Serum or Plasma 100 mmol/L 98-107 [facility] Creatinine [Mass/volume] in Serum or Plasma 2.78 mg/dL 0.70-1.20 H [facility] Glucose [Mass/volume] in Serum or Plasma 142 mg/dL 70-140 H [facility] Potassium [Moles/volume] in Serum or Plasma 3.5 mmol/L 3.4-5.1 [facility] Sodium [Moles/volume] in Serum or Plasma 135 mmol/L 136-145 L [facility] Urea nitrogen [Mass/volume] in Serum or Plasma 42 mg/dL 8-23 H [facility] Anion gap 3 in Serum or Plasma 15 mmol/L 8-15 [facility] Osmolality of Serum or Plasma by calculation 293 mosm/kg 275-300 [facility] Creatinine/Urea nitrogen [Mass Ratio] in Serum or Plasma 15 [facility] Calcium [Mass/volume] in Serum or Plasma 9.0 mg/dL 8.8-10.2 [facility] Glomerular filtration rate/1.73 sq M pre dicted among non-blacks [Volume Rate/Area] in Serum or Plasma by Creatinine-based formula (MDRD) 21 mL/min/1.73m2 >60 L [facility] Glomerular filtration rate/1.73 sq M pre dicted among blacks [Volume Rate/Area] in Serum or Plasma by Creatinine-based formula (MDRD) 24 mL/min/1.73m2 >60 L [facility] ID Date Data Source [id number] 10/17/2020 04:51:39 AM [facility] Name Value Range Interpretation Code Description Data Jazmín rce(s) Supporting Document(s) Leukocytes [#/volume] in Blood by Automated count 11.1 10*3/uL 4-10 H [facility] Erythrocytes [#/volume] in Blood by Automated count 3.03 10*6/uL 4.6- 6.1 L [facility] Hemoglobin [Mass/volume] in Blood 10.0 g/dL 13.5-18 [facility] Hematocrit [Volume Fraction] of Blood by Automated count 30.0 % 4 1-53 L [facility] Erythrocyte mean corpuscular volume [Entitic volume] by Auto mated count 99.0 fL 80-96 [facility] Erythrocyte mean corpuscular hemoglobin [Entitic mass] by Automated count 33.0 pg 27-33 [facility] Erythrocyte mean corpuscular hemoglobin concentration [Mass/volume] by Automated count 33.4 g/dL 32.0-36.0 [facility] E[facility]th[facility] distribution width [Ratio] by Automated count 15.6 % 11.5-14.5 [facility] Platelets [#/volume] in Blood by Automated count 238 10*3/uL 150-400 [facility] Differential cell count method - Blood [facility] Neutrophils/100 leukocytes in Blood by Automated count 64 % [facility] Lymphocytes/100 leukocytes in Blood by Automated count 17 % [facility] Monocytes/100 leukocytes in Blood by Automated count 12 % [facility] Eosinophils/100 leukocytes in Blood by Automated count 6 % [facility] Neutrophils [#/volume] in Blood by Automated count 7.10 10*3/uL 1.8-7 .0 H [facility] Lymphocytes [#/volume] in Blood by Automated count 1.89 10*3/uL 1.2-4 .0 [facility] Monocytes [#/volume] in Blood by Automated count 1.33 10*3/uL 0-0.8 H [facility] Eosinophils [#/volume] in Blood by Automated count 0.67 10*3/uL 0-0.5 H [facility] Band form neutrophils/100 leukocytes in Blood by Manual count 1 % [facility] Band form neutrophils [#/volume] in Blood by Manual count 0.11 10*3 /uL 0-0.6 [facility] Anisocytosis [Presence] in Blood by Light microscopy [facility] Poikilocytosis [Presence] in Blood by Light microscopy [facility] ID Date Data Source [id number] 10/16/2020 08:51:52 PM [facility] Name Value Range Interpretation Code Description Data Jazmín rce(s) Supporting Document(s) Glucose [Mass/volume] in Capillary blood by Glucometer 167 mg/dL 70- 140 [facility] ID Date Data Source [id number] 10/16/2020 04:36:42 PM [facility] Name Value Range Interpretation Code Description Data Jazmín rce(s) Supporting Document(s) Glucose [Mass/volume] in Capillary blood by Glucometer 142 mg/dL 70- 140 [facility] ID Date Data Source [id number] 10/16/2020 02:11:58 PM [facility] XR CHEST FRONTAL ONLY [id number] RESULTI nterpreted by:TANO HarperROCEDURE INFORMATION: Exam: XR Chest Exam date and time: 10/16/2020 11:27 AM Age: 75 years old Clinical indication: Biliary acute pancreatitis without necrosis or infection; Chest pain; Type not specified; Additional info: ? Pulmonary edema TECHNIQUE: Imaging protocol: XR of the chest Views: 1 view. COMPARISON: CR XR CHEST FRONTAL ONLY [id number] PORTABLE 10/14/2020 10:22 AM FINDINGS: Lungs: Unremarkable. No consolidation. Pleural spaces: Unremarkable. No pleural effusion. No pneumothorax. Heart/Mediastinum: Unremarkable. No cardiomegaly. Diaphragm: There is an elevated right hemidiaphragm present on the current examination. Bones/joints: There is evidence of a previous sternotomy. IMPRESSION: No acute findings. THIS DOCUMENT HAS BEEN ELECTRONICALLY SIGNED BY PREET LIANG MDThis document has been electronically signed by Preet Liang MD on 10/16/2020 2:11 PM Name Value Range Interpretation Code Description Data Jazmín rce(s) Supporting Document(s) ID Date Data Source [id number] 10/16/2020 12:18:15 PM [facility] Name Value Range Interpretation Code Description Data Jazmín rce(s) Supporting Document(s) Glucose [Mass/volume] in Capillary blood by Glucometer 212 mg/dL 70- 140 H [facility] ID Date Data Source [id number] 10/16/2020 08:25:53 AM [facility] Name Value Range Interpretation Code Description Data Jazmín rce(s) Supporting Document(s) Glucose [Mass/volume] in Capillary blood by Glucometer 145 mg/dL 70- 140 H [facility] ID Date Data Source [id number] 10/16/2020 04:41:[address] [facility] Value Range Interpretation Code Description Data Jazmín rce(s) Supporting Document(s) Bicarbonate [Moles/volume] in Serum 22 mmol/L 22-29 [facility] Chloride [Moles/volume] in Serum or Plasma 100 mmol/L 98-107 [facility] Creatinine [Mass/volume] in Serum or Plasma 2.79 mg/dL 0.70-1.20 H [facility] Glucose [Mass/volume] in Serum or Plasma 152 mg/dL 70-140 H [facility] Potassium [Moles/volume] in Serum or Plasma 3.7 mmol/L 3.4-5.1 [facility] Sodium [Moles/volume] in Serum or Plasma 135 mmol/L 136-145 L [facility] Urea nitrogen [Mass/volume] in Serum or Plasma 50 mg/dL 8-23 H [facility] Anion gap 3 in Serum or Plasma 14 mmol/L 8-15 [facility] Osmolality of Serum or Plasma by calculation 296 mosm/kg 275-300 [facility] Creatinine/Urea nitrogen [Mass Ratio] in Serum or Plasma 18 [facility] Calcium [Mass/volume] in Serum or Plasma 8.6 mg/dL 8.8-10.2 L [facility] Glomerular filtration rate/1.73 sq M pre dicted among non-blacks [Volume Rate/Area] in Serum or Plasma by Creatinine-based formula (MDRD) 21 mL/min/1.73m2 >60 L [facility] Glomerular filtration rate/1.73 sq M pre dicted among blacks [Volume Rate/Area] in Serum or Plasma by Creatinine-based formula (MDRD) 24 mL/min/1.73m2 >60 L [facility] ID Date Data Source [id number] 10/16/2020 04:41:55 AM [facility] Name Value Range Interpretation Code Description Data Jazmín rce(s) Supporting Document(s) Magnesium [Mass/volume] in Serum or Plasma 1.9 mg/dL 1.6-2.4 [facility] ID Date Data Source [id number] 10/15/2020 09:16:40 PM [facility] Name Value Range Interpretation Code Description Data Jazmín rce(s) Supporting Document(s) Glucose [Mass/volume] in Capillary blood by Glucometer 238 mg/dL 70- 140 H [facility] ID Date Data Source [id number] 10/15/2020 08:50:[address] [facility] Value Range Interpretation Code Description Data Jazmín rce(s) Supporting Document(s) [facility] NGICJb2sWhOFAqBk67/CGBkrDGPhh5ZcAGdcIVh7OCinHZUbI0AhCII8eC0iIXS7URaQHcGoLwGgIuK4 lbm [file] ICAgICAgICAgICAgICAgICAgICAgICAgICAgICAgICAgICAgICAgICAgICAgICAgICAgICAgICAgICAg ICAgICAgICAgICANCiAgICAgICAgICAgICAgICAgIC AgICAgICAgICAgICAgICAgICAgICAgICAgICAgICAgICAgICAgICAgICAgICAgICAgICAgICAgICAgIC AgICAgICAgICAgICAgICAgICAgICANCiAgICAgICAgICAgICAgICAgICAgICAgICAgICAgICAgICAgIC AgICAgICAgICAgICAgICAgICAgICAgICAgICAgICAg ICAgICAgICAgICAgICAgICAgICAgICAgICAgICAgICANCiAgICAgICAgICAgICAgICAgICAgICAgICAg ICAgICAgICAgICAgICAgICAgICAgICAgICAgICAgICAgICAgICAgICAgICAgICAgICAgICAgICAgICAg ICAgICAgICAgICAgICANCiAgICAgICAgICAgICAgIC AgICAgICAgICAgICAgICAgICAgICAgICAgICAgICAgICAgICAgICAgICAgICAgICAgICAgICAgICAgIC AgICAgICAgICAgICAgICAgICAgICAgICANCiAgICAgICAgICAgICAgICAgICAgICAgICAgICAgICAgIC AgICAgICAgICAgICAgICAgICAgICAgICAgICAgICAg ICAgICAgICAgICAgICAgICAgICAgICAgICAgICAgICAgICANCiAgICAgICAgICAgICAgICAgICAgICAg ICAgICAgICAgICAgICAgICAgICAgICAgICAgICAgICAgICAgICAgICAgICAgICAgICAgICAgICAgICAg ICAgICAgICAgICAgICAgICANCiAgICAgICAgICAgIC AgICAgICAgICAgICAgICAgICAgICAgICAgICAgICAgICAgICAgICAgICAgICAgICAgICAgICAgICAgIC AgICAgICAgICAgICAgICAgICAgICAgICAgICANCiAgICAgICAgICAgICAgICAgICAgICAgICAgICAgIC AgICAgICAgICAgICAgICAgICAgICAgICAgICAgICAg ICAgICAgICAgICAgICAgICAgICAgICAgICAgICAgICAgICAgICANCiAgICAgICAgICAgICAgICAgICAg ICAgICAgICAgICAgICAgICAgICAgICAgICAgICAgICAgICAgICAgICAgICAgICAgICAgICAgICAgICAg ICAgICAgICAgICAgICAgICAgICANCjw/xBJkF3qexV UabbT4V6mcGy2MMb5MVU7ow8IsIRFvNFvlsxRyTyyJCsFgJFNoUpwPCql5LSufWD7ElACpN6OmZ1YdAV akEW9IPOWkDROlwZRbBCQgAWEbKfI1YTSiXMkwUT1RiDZbAMyoXDUlDGAmGzJgZFLwVCRsOPZeQUJsHS FRLCGqQTThXtGwCEkpGW6Qw3VavVF0SOe+Tj3IUZ4u v2ZlMNupRyXcZI6gcs7FKPwJIdYjL4YnhaP2OYX1WYOzTi3VHEFzWLVjsNQnRRXdRQNZPvUkI5TybS43 IDENCj4+HRbbzqQyHknEDuX2BXGlz4CfRRr7SS8ZAAGmIGr5qRRtQ92kk7BycONqEbqqCNx4X4timWeu LiJyLEX3EALkWY3JEPI6AXQkCH3zNRZsYQA5PhP9PA JIZJ6HPQSjWFPiqALzCFVkNEHAZJ1KOFvqWPY9SIJnhbUfrZToHTxjKV4SFOKcgqVtLqUlVAYVMAx+Pg 2OIG3jy6YfDYubRCWqZO2vpq3IWStYOhFuG2D0wRNbF8Z4BIqjSv7WNFGkOFJcSkPsPFYUJCfgDJ9HNO 4kcaA4UY0PwXWmBTVoPKHlkLNdERb5F16oySMyYRno IV3AAYD+Shawn+Vt4XLQGsFBCtAGUjXoJpOVXGAfCfJ4UuS7CRd6YjR7UnIM24pIwobiJaITguPB1UOT1y PRVcKROAAD5EcOLrhH9iwkJuJfEaYRNRVvNiI51lcEVvIWQwRFCdHCTnHq4QKRQaH4NemaRyaYybahMa CKCkAWZVCE4VZSazleKqjBPniYdvNV51cUmhZC8WYw 7FBqLoBV9kux0UnXEjPw0ONYGaHq1XHLUkAEBhFPIfZED0IWSjZqLuZUyjKZMnGJFsIAE9KHTfGBGoUH 9EAeQuJONmViF7XvKwHMLwOWZldd6KLUMnPEYlNhLeKPOzBKXfLWFyNWjyNQTjIEZeJWN3DJIhAWZdLK 0BZvMiMFZqYYMaHGAoPZJaUYBxag8DDOZyAJFdXxXp UYRaATTwBDGyMMbwRNFfRCZ0XXOzDBYbKSZfLB2ZZcWhQNJsUVQ6QkHvPNVbRDNaax5SCGTkNXObWAme XgSzZHLbJTPuOAfzLYEgGSM8KFQ8HQXqXDQhOT0LBsNpCTXuSWEhFjyoGMEvIKXaxw5ORTEfTIVzBgSa GxErZFYaZYYqEGfbBWMiCMTaJUe8HDJvZXRaMM3TKj JcGAZbODMtLABmPXAdQKPdmz4JOWHyDXPoGPH2AYUiWRWiLOVmTUzgAMQmPFK6WvWxUSJfSCRkRN9CCd KiYDHaXFF3KZInCHWiPXVyzg2JGOJqHFCwFhKhZCLkWYJvVXRsQCbzEHVqIQS3AkA2TCWdDCDoFO0UFv YlXNOpDJX4LVFeRFQdEXUvfo9OCAKyMCTkTui0TOOk SKKgHOTfZRmmSGEmXTY0CSBrWXDkBSPyKL8SSbQpRACrDAnlYrVgDSVaJOWsiv3YEUWsJIDuLYRjAGIo DGCaZMZrUTpcPLKmTDF7CUO0BACwAXPaAM0NWjWjTDUtHoVqGBJgZBFoPCSlcl2CYRVpHCZuTSE2GPOi OVUvEGIfTSsbXGDpNCObLQHqJWEnAVHkDP7DGcUxUA QtGcLoCgAiBINpVKDuyi7OSLSgRWKbEWD1WaBjLBSsOUZnXZukZENrYPMjJtLzATHoKOLxZO9NXqWrMU DgNdGwOdHoVSPeQUEeat8BGKXtAIVdGzTvYMQsSCPhSEYwSSbiRHUpIFLjIbQ0UVMvYKRxCE6WMnZsUP FwMwK8LNLgLIZrUNEqsc6ChGFazYijii2VBNjBFm0Y rZduUNQ5YIsbAv4mqDXfKTPqGGODWd7BvtTkBPAwKVRKFXvlIFSkUDY2XxE8GJRvPJV6PKeeSgUcUIc7 MohvVfT6MVBtKoZgHmC9XLMqWgt6TGVnAFdbUkBuMJKoKMIdKlKqFMZsF1ZlOqA+FM9dKRf+Sl1Rx8Ea vpO6mrOlDAuwTWR1HO3QTSACC8EPYe== ID Date Data Source [id number] 10/15/2020 05:31:15 PM [facility] HEPATOBILIARY IMAGING [facility] [id number] RESULTInterpreted by:Rancho Dacosta MBBCHHISTORY: Cholelithiasis.TECHNIQUE: Following the intravenous injection of 7.43 mCi of technetium-99m labeled Mebrofenin, dynamic planar images over the upper abdomen were obtained in the anterior projection over 1 hour. COMPARISON: Ultrasound abdomen dated 10/03/2020.FINDINGS: Nonvisualization of the gallbladder on delayed images consistent with cystic duct obstruction. There is normal visualization of the common bile duct and small bowel. Mild delayed secretion of the tracer by the liver.IMPRESSIO N:Nonvisualization of the gallbladder on delayed images consistent with cystic duct obstruction. This document has been electronically signed by Joy Viera MD on 10/15/2020 5:29 PM Name Value Range Interpretation Code Description Data Jazmín rce(s) Supporting Document(s) ID Date Data Source [id number] 10/15/2020 04:40:01 PM [facility] Name Value Range Interpretation Code Description Data Jazmín rce(s) Supporting Document(s) Glucose [Mass/volume] in Capillary blood by Glucometer 160 mg/dL 70- 140 [facility] ID Date Data Source [id number] 10/15/2020 12:21:59 PM [facility] Name Value Range Interpretation Code Description Data Jazmín rce(s) Supporting Document(s) Glucose [Mass/volume] in Capillary blood by Glucometer 179 mg/dL 70- 140 [facility] ID Date Data Source [id number] 10/15/2020 11:09:[address] [facility] Value Range Interpretation Code Description Data Jazmín rce(s) Supporting Document(s) [facility] JVBGJx5nKyFFZxPjt5FuLzCgPRFcAR8puzl7V7Y0vPSlS0YroGVlh0wwM3PdE8OuOPSoOPNTAD6HpFAd jb2 [file] G8l8grmq8fRkkqlNjbk4AtfbfsazaFB+Qo8hXelahV g1/h9/69E+Wr5/WW8rS/6rC/pjlrZ3YpxXfe6EH2HikK9gphXty1uEgyX8C+pHxKuX+ksll6jyVQ4Rli 2IWN2n9qVN+GftkpMk9q3Z6t0eCx0Uc+F/or1D/8X8Er5W0Sq9WFNZ1JTwW1+aD3PpW1vP6m10qr3tcn fHOCkCPyLuYv7KyhWpqzlUrcr2WkB0/jGmmtRZK8Gi +T996Rj2Kd9ckEc8PhXK+5P+duE6ifTr8g0ZYfcHhArmCfm/vr1m7q5uiY+0Ra0a8n57J/d+qTGmya8a swLJskDKz40dzcHhqfIkqd3ctEcUe2UfHe409F5Z+5Y0Ve9/yR9mc572f2jljRyGbO3LX9oF0Et/2Vc7 RYnwI9VFzRyJDucM/UhK5Lu873TXy/4vW+1fq86TN6 +DJzh24knWKr4Z/8oeAaImyNbL3pj4f5ab4FLPqfwv38Zh15U/RV11+xTlx/hb2wO0/Vfeai6bf32qT9 L/Hc3rnLUn61vFwdmOh/nBf5y8a48ZgkPwR6O3owYc7d3EaeotWyEEHsgNF2NKDjjp8lrSucn0hxtqdI 74P1164qn94qGH61ZaUpP/eJ2E3FXKTzPnR9ziYtRP vWwqZyxk7jgLSlTlAq48kSQO4D1MUT+zv3kOD+gk6vuJfm/qPZk56gvIYAkLZgG+LOETyncN+IxxyNa+ p8Ps683FS8+BW+SyqA8i28Sq2Q+ZCEytYmd1Y3OI/Yqa/e3VaB7Ps/7mF9rFNd+umE9Il43rCt0noVTT fmrw5fZ+painting supervisor/ZXG+Itq94rwjO71YPadyb++9Zt3icl [file] s0u60og4X1977gYbh0+9/Kjrot4c1t/98d3yJ2+3eob2bbuil3l0/jQxI995/y0Kt95fe8myrs/2/u0/ aqIq3oAt710+9ExVu17/lcx5h2jOebr43T//G/8pp6 pfXr37/KPlc06watxv9cJi718+/9WrL99+fPvmw8//5VG7/C60o4w2m//pb/kpwbq6d717sNl9R4+//u qbV+/ffI4Pe/dr0fipEVzFD3948qR3giFJL/8Yz3Rng5//w0qwc9ipRqLifXliYh/u/DAay75x6nq/+f jFVz+/j0eeve/Zm2e1azphqHU0N//09i59fv5/VPOj 9FERH9+8f/v1+9iz62a1/A94allM8x2p0HC6k8trYy552pFf3/+NP92j8/7T6z/+9G+//9OPP/zu5X/8 18vr//j+p3//w/e//4eXz/70++9/jiaCr7doMB/r37/88aeX+sv2S6+TJr922uw1ohe60k06P7ntMy/x x1/+WZ+8K8w8AC/4x+1Du3L05SO61J7I8T4wUfk/Xv 84BfXcQHlr+/KvbfEYgkovOt54lKR7dRpbw54+jNwX+3szySRq29r//NsPf/dQ24QaUb///SZZE8646o LZm9f//swnWlfDFyt0lPIA0e+gdsTv4H/uhJ/a2UVkdDA0cZ+CxbbWUXsawd/98NNf/vHlT9//5Yen2z +IwAvCAt0/+lFbyP+a2H/7+b0D+ub9y+9/+ssPf/pf 3//vl9x66eJ46cb281uf+vntA/lJ7s0vxutru7u//R9/+yi7Creio+0RRsloIp0+8l8+/lab+gzzD72u +QNvVi7dvApFxGY8pY/kHmR9r6gpVlbymL/2ldjPq+1A33zy/pOPL9//7x/+/Bxj7mPtdI4284/ffXJP nY+h91iv/utP//r3P/n5gWPE3//hqXX3E/r6+//87f d/fnS0n/0/KnrM3/8MPFX0/o9//PHTxwz+sx/M67h8a28+1yxbmvuihsXBI1/47X/11AbeKr2j57vAl9 7zZz/91EC59I//8uhSv/v4zPnRXhpjA+c37d9jP7j4g9/N03086UeyGvqz8++9pv//h9Hc8GvlcxQ23j t//+BonQjq5070hEi2juGOtRPiyr6mrv+8eVzfU+HL m88/ihxY1TYZ2Y/ff/7m/KR28Ie3Dng4wcJ55uiebjw05dwoe4HD2SNu/y/0bfsGTuRiSEI6gtBtwWym ugIqEbsCUKyePETiKcp8DT0DzBVdLRDhX2K5TUDqot5dOWRcCNMriQZlZmHiGEWHIJ4IxLRzZR5BJDr3 XQEiESVfWiCdNBImreI6KWQbHXHxMTIoO1RrgrHohI AyIDAgUj4+VY3tu1VyAxApISUwZoz4VZ9VpNMnSL0SjTIynP8fboYiX413ayPlBTKqGhzqp2QdTJurSL XUMT6CGWK3RUT6XOFvPt7+SK1tp1GnDsRxCPXlLsm0PN6UeTBem0DoFQ0VW9MeSDHrWKSYUBB2g6NmBE WvmcifovnmV8NzCUR6fJ7wQSG2EZIvEWunBIQdTHXf LKIqTKKdTRkwPPKnTFBcAZHlXQTtKCi9rTKwNK0XQ4CxUQYwXVUKPHMsthBdHe2vULDYAKgTReTxHDTL V0IMNFJjVbu3YFItYI4IbCOaMPG9XAeJXWFUIPsWGXqzDrObx1F6DJLnQ5JhTHGhudYoKTXTVPwmVjgs YE1aqUbihlbvX5HajKYyRCXPJVOzUKJfVRTeXUIuG2 Mqo6Y2R8KiHUiXSBSSLGhXFEncOsW5l89utmNJXHQdUQPfAT1+UR9dl8MrRi4FUINzQD5cyrt1UW7YxX WfPP5ULHtwdsKzG1fiumWaYsZlJBJYNG6cU9GxpA60PVN+McLaPX6yaxj5fzJdYtGsKKQuIXSrLRSvCN ptHAUnZZRdOQUmOKR1GXK1HKFoZkBuYAUxWtB4NGXa CBHlXABugeHJIJHnTQK7HAHgITFfUEBcMUWjDJytAEAuHFo0Duo5PXJbCVGwNT5lGcAlSGIwRISjLNOw NaX4CgPaElSOUZEhVCAtQOQxAbYrTCIiKCSlGEeeQBAhIOBhLFj5NKExYIFlKQ8sUcQzYSWoJZFnWNOv HQOfFDTkwiVKMNCmRNNwUIE3AVTdPKLsOOWtXGtmKU DkBMDcFEC3BBDtOLHzOH1rYjExNKSlMAD7DsQiCQVxQAWrjyMQOWSkDHQlRYN6MRZyIVSyPIQqQJghNT XeMJJqSoY3LIHkQVTqZA3kIoPgGFTwUSJ9MIDrPGLhKFMkpuAXTTCsLUOlEZb8ToViJHWaAWTwUOepLT XnYTKkIIraIYFsQENjHP4wGtLeKCNhWGZpFSMoALGr JQVdysKAROSkCNMlECG1FzIdMMDhXJYiJIfqPNHtUNKwJSN4JVShMTHuPF9nUhZgBSSfRgQkQJUfJMKl KTEaqcEOOSCuFHLjJWInHBNzSYClRDRwLBlvOQMgRSRuCzA4KUBnPZAoHO5gJrMuOQCzFXN8LXByTDRn ZEPqdnXPFTViJCOmIAWmHFR7EIMkYWCaJZr1qrLmpK VqYaq7Kv3FzTdpVHN0Vy7YnmWmYYOuLNOXHb6Jf300FMLvKAQQVqi+DvkvrNXmgAizTMEFZuA4WBSSZA VFT0Y= ID Date Data Source [id number] 10/15/2020 08:19:27 AM [facility] Name Value Range Interpretation Code Description Data Jazmín rce(s) Supporting Document(s) Glucose [Mass/volume] in Capillary blood by Glucometer 145 mg/dL 70- 140 [facility] ID Date Data Source [id number] 10/15/2020 04:23:51 AM [facility] Name Value Range Interpretation Code Description Data Jazmín rce(s) Supporting Document(s) Leukocytes [#/volume] in Blood by Automated count 9.5 10*3/uL 4-10 [facility] Erythrocytes [#/volume] in Blood by Automated count 2.82 10*6/uL 4.6- 6.1 L [facility] Hemoglobin [Mass/volume] in Blood 9.5 g/dL 13.5-18 L [facility] Hematocrit [Volume Fraction] of Blood by Automated count 28.2 % 4 1-53 L [facility] Erythrocyte mean corpuscular volume [Entitic volume] b y Automated count 100.0 fL 80-96 H [facility] Erythrocyte mean corpuscular hemoglobin [Entitic mass] by Automated count 33.7 pg 27-33 [facility] Erythrocyte mean corpuscular hemoglobin concentration [Mass/volume] by Automated count 33.7 g/dL 32.0-36.[facility] width [Ratio] by Automated count 15.6 % 11.5-14.5 [facility] Platelets [#/volume] in Blood by Automated count 207 10*3/uL 150-400 [facility] Differential cell count method - Blood [facility] Neutrophils/100 leukocytes in Blood by Automated count 80 % [facility] Lymphocytes/100 leukocytes in Blood by Automated count 10 % [facility] Monocytes/100 leukocytes in Blood by Automated count 7 % [facility] Eosinophils/100 leukocytes in Blood by Automated count 2 % [facility] Basophils/100 leukocytes in Blood by Automated count 1 % [facility] Neutrophils [#/volume] in Blood by Automated count 7.61 10*3/uL 1.8-7 .0 [facility] Lymphocytes [#/volume] in Blood by Automated count 0.98 10*3/uL 1.2-4 .0 L [facility] Monocytes [#/volume] in Blood by Automated count 0.63 10*3/uL 0-0.8 [facility] Eosinophils [#/volume] in Blood by Automated count 0.17 10*3/uL 0-0.5 [facility] Basophils [#/volume] in Blood by Automated count 0.10 10*3/uL 0-0.2 [facility] Nucleated erythrocytes/100 leukocytes [Ratio] in Blood by Automated count 0 /100{WBCs} 0-0 [facility] ID Date Data Source [id number] 10/15/2020 05:06:00 AM [facility] Name Value Range Interpretation Code Description Data Jazmín rce(s) Supporting Document(s) Albumin [Mass/volume] in Serum or Plasma by Bromocresol green (BCG) dye binding method 3.2 g/dL 3.5-5.2 [facility] Bilirubin.total [Mass/volume] in Serum or Plasma 2.3 mg/dL <1.2 [facility] Bilirubin.direct [Mass/volume] in Serum or Plasma 1.3 mg/dL <0.3 [facility] Alkaline phosphatase [Enzymatic activity/volume] in Serum or Plasma 186 U/L 40-129 [facility] Aspartate aminotransferase [Enzymatic activity/volume] in Serum or Plasma 34 U/L <40 [facility] Alanine aminotransferase [Enzymatic activity/volume] in Seru m or Plasma 99 U/L <41 [facility] Protein [Mass/volume] in Serum or Plasma 6.3 g/dL 6.4-8.3 L [facility] ID Date Data Source [id number] 10/15/2020 05:06:00 AM [facility] Name Value Range Interpretation Code Description Data Jazmín rce(s) Supporting Document(s) Lipase [Enzymatic activity/volume] in Serum or Plasma 66 U/L 13-6 0 [facility] ID Date Data Source [id number] 10/15/2020 05:06:[address] [facility] Value Range Interpretation Code Description Data Jazmín rce(s) Supporting Document(s) Bicarbonate [Moles/volume] in Serum 20 mmol/L 22-29 L [facility] Chloride [Moles/volume] in Serum or Plasma 102 mmol/L 98-107 [facility] Creatinine [Mass/volume] in Serum or Plasma 2.61 mg/dL 0.70-1.20 [facility] Icteric Glucose [Mass/volume] in Serum or Plasma 152 mg/dL 70-140 [facility] Potassium [Moles/volume] in Serum or Plasma 4.2 mmol/L 3.4-5.1 [facility] Sodium [Moles/volume] in Serum or Plasma 136 mmol/L 136-145 [facility] Urea nitrogen [Mass/volume] in Serum or Plasma 51 mg/dL 8-23 [facility] Anion gap 3 in Serum or Plasma 15 mmol/L 8-15 [facility] Osmolality of Serum or Plasma by calculation 299 mosm/kg 275-300 [facility] Creatinine/Urea nitrogen [Mass Ratio] in Serum or Plasma 19 [facility] Calcium [Mass/volume] in Serum or Plasma 8.7 mg/dL 8.8-10.2 L [facility] Glomerular filtration rate/1.73 sq M pre dicted among non-blacks [Volume Rate/Area] in Serum or Plasma by Creatinine-based formula (MDRD) 23 mL/min/1.73m2 >60 L [facility] Glomerular filtration rate/1.73 sq M pre dicted among blacks [Volume Rate/Area] in Serum or Plasma by Creatinine-based formula (MDRD) 26 mL/min/1.73m2 >60 L [facility] ID Date Data Source [id number] 10/15/2020 04:58:[address] [facility] Value Range Interpretation Code Description Data Jazmín rce(s) Supporting Document(s) Magnesium [Mass/volume] in Serum or Plasma 1.6 mg/dL 1.6-2.4 [facility] ID Date Data Source [id number] 10/15/2020 04:58:[address] [facility] Value Range Interpretation Code Description Data Jazmín rce(s) Supporting Document(s) Natriuretic peptide.B prohormone N-Terminal [Mass/volu me] in Serum or Plasma 37842 pg/mL <125 [facility] ID Date Data Source [id number] 10/15/2020 04:58:[address] [facility] Value Range Interpretation Code Description Data Jazmín rce(s) Supporting Document(s) Phosphate [Mass/volume] in Serum or Plasma 3.1 mg/dL 2.5-4.5 [facility] ID Date Data Source [id number] 10/15/2020 04:58:[address] [facility] Value Range Interpretation Code Description Data Jazmín rce(s) Supporting Document(s) Troponin T.cardiac [Mass/volume] in Serum or Plasma 0.03 ng/mL <0.01 [facility] ID Date Data Source [id number] 10/14/2020 09:06:[address] [facility] Value Range Interpretation Code Description Data Jazmín rce(s) Supporting Document(s) Glucose [Mass/volume] in Capillary blood by Glucometer 174 mg/dL 70- 140 [facility] ID Date Data Source [id number] 10/14/2020 04:50:[address] [facility] Value Range Interpretation Code Description Data Jazmín rce(s) Supporting Document(s) Glucose [Mass/volume] in Capillary blood by Glucometer 136 mg/dL 70- 140 [facility] ID Date Data Source [id number] 10/14/2020 01:46:[address] [facility] Value Range Interpretation Code Description Data Jazmín rce(s) Supporting Document(s) Glucose [Mass/volume] in Capillary blood by Glucometer 138 mg/dL 70- 140 [facility] ID Date Data Source [id number] 10/14/2020 01:41:02 PM [facility] IR PERCUTANEOUS CHOLECYSTOSTOMY TUBE INS ERTIONFINAL RESULTInterpreted by:Izabel Chapin, MDPROCEDURE: ULTRASOUND GUIDED PERCUTANEOUS CHOLECYSTOSTOMY TUBE PLACEMENTHISTORY: Positive HIDA scan for cystic duct obstruction. Acute cholecystitis with percutaneous cholecystostomy tube requested for decompression.COMPARISON: MRCP 10/13/2020 and HIDA scan 10/12/2020.TECHNIQUE:Sedation: None utilized. 50 mcg of IV fentanyl used for pain control purposes only.PROCEDURE/FINDINGS:The patient was prone and the right upper quadrant was prepped and draped with standard sterile technique. After anesthetizing the skin underlying tissue with 2% lidocaine injection, direct ultrasound guidance, with image saved for documentation, was used to place a 10 Fr pigtail cholecystostomy drain using a single step [id number]-[id number] technique with the locking loop coiled in the gallbladder lumen, as confirmed on ultrasound. There was return of dark green/black nonpurulent bilious fluid. A sample was sent for Gram stain and culture analysis. The drain was attached to gravity bag and secured to the skin with suture and adhesive skin anchor devise and dressing.The patient tolerated the procedure well without immediate complication.IMPRESSION: Successful and uncomplicated ultrasound guided percutaneous 10 Fr cholecystostomy tube placement.This document has been electronically signed by Izabel Chapin MD on 10/14/2020 1:38 PM Name Value Range Interpretation Code Description [facility] ID Date Data Source [id number] 10/15/2020 10:24:21 AM [facility] Service Cmnt XXX-Imp : BILE CULTUREMicro organism XXX Cult : 1+Citrobacter freundii complexATTENTION This species is always resistant to ampicillin, amoxicillin-clavulanic acid, ampicillin-sulbactam, first-generation cephalosporins, cephamycins, and cefuroxime. Name Value Range Interpretation Code Description Data Jazmín rce(s) Supporting Document(s) ID Date Data Source [id number] 10/15/2020 07:15:37 AM [facility] Service Cmnt XXX-Imp : NoneGram Stn XXX : Test Not Performed.Entry ErrorMicroorganism XXX Cult : Test Not Performed.Entry Error Name Value Range Interpretation Code Description Data [facility] rce(s) Supporting Document(s) ID Date Data Source [id number] 10/14/2020 01:03:44 PM [facility] Name Value Range Interpretation Code Description Data Jazmín rce(s) Supporting Document(s) Glucose [Mass/volume] in Capillary blood by Glucometer 135 mg/dL 70- 140 [facility] ID Date Data Source [id number] 10/14/2020 11:01:57 AM [facility] XR CHEST FRONTAL ONLY [id number] RESULTI nterpreted by:Prudence Mark MDIndication: History of CHF the patient with shortness of breath.TECHNIQUE: Portable erect view of the chest was obtained on 10/14/2020 and compared with 10/11/2020.FINDINGS: The heart: The heart is within normal limits.The thoracic aorta: The thoracic aorta is within normal limits.The trachea and bronchi: There is some steepling of the trachea which can be seen in adult croup. The remainder of the trachea and bronchi are patent.The pulmonary kayode: The pulmonary kayode are within normal limits.The lungs: On today's exam, there is a r ounded opacity in the left upper lobe adjacent to some groundglass opacity which could be focal infiltrate or atelectasis. Linear atelectasis is noted in the right upper lobe, and in the right lower lobe. Some of the opacities at the right lung base are slightly nodular in appearance and could reflect a focal infiltrate as well.Pleural space: There is no effusion or pneumothorax.The upper abdomen: There is air in the stomach bubble and in the colon on the left side.The bones: There are multiple midline sternotomy wires noted with fracture of the first sternotomy wires seen previously, unchanged. There are mild to moderate degenerative arthritic changes of the bilateral AC joints, and mild degenerative changes of the glenohumeral joints. 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 Linear atelectasis in the right upper and lower lobe since the previous exam.2. Possible focal infiltrate in the left upper lobe and right lung base.This docume nt has been electronically signed by Prudence Mark MD on 10/14/2020 10:59 AM Name Value Range Interpretation Code Description Data Jazmín rce(s) Supporting Document(s) ID Date Data Source [id number] 10/14/2020 09:21:25 AM [facility] Name Value Range Interpretation Code Description Data Jazmín rce(s) Supporting Document(s) Glucose [Mass/volume] in Capillary blood by Glucometer 141 mg/dL 70- 140 [facility] ID Date Data Source [id number] 10/14/2020 05:29:26 AM [facility] Name Value Range Interpretation Code Description Data Jazmín rce(s) Supporting Document(s) Glucose [Mass/volume] in Capillary blood by Glucometer 133 mg/dL 70- 140 [facility] ID Date Data Source [id number] 10/14/2020 04:08:24 AM [facility] Name Value Range Interpretation Code Description Data Jazmín rce(s) Supporting Document(s) Leukocytes [#/volume] in Blood by Automated count 7.9 10*3/uL 4-10 [facility] Erythrocytes [#/volume] in Blood by Automated count 2.48 10*6/uL 4.6- 6.1 [facility] Hemoglobin [Mass/volume] in Blood 8.4 g/dL 13.5-18 L [facility] Hematocrit [Volume Fraction] of Blood by Automated count 24.7 % 4 1-53 L [facility] Erythrocyte mean corpuscular volume [Entitic volume] by Auto mated count 99.5 fL 80-96 H [facility] Erythrocyte mean corpuscular hemoglobin [Entitic mass] by Automated count 33.9 pg 27-33 [facility] Erythrocyte mean corpuscular hemoglobin concentration [Mass/volume] by Automated count 34.1 g/dL 32.0-36.0 [facility] E[facility] distribution width [Ratio] by Automated count 16.4 % 11.5-14.5 H [facility] Platelets [#/volume] in Blood by Automated count 184 10*3/uL 150-400 [facility] Differential cell count method - Blood [facility] Neutrophils/100 leukocytes in Blood by Automated count 75 % [facility] Lymphocytes/100 leukocytes in Blood by Automated count 12 % [facility] Monocytes/100 leukocytes in Blood by Automated count 8 % [facility] Eosinophils/100 leukocytes in Blood by Automated count 4 % [facility] Basophils/100 leukocytes in Blood by Automated count 1 % [facility] Neutrophils [#/volume] in Blood by Automated count 5.92 10*3/uL 1.8-7 .0 [facility] Lymphocytes [#/volume] in Blood by Automated count 0.96 10*3/uL 1.2-4 .0 L [facility] Monocytes [#/volume] in Blood by Automated count 0.67 10*3/uL 0-0.8 [facility] Eosinophils [#/volume] in Blood by Automated count 0.30 10*3/uL 0-0.5 [facility] Basophils [#/volume] in Blood by Automated count 0.10 10*3/uL 0-0.2 [facility] Nucleated erythrocytes/100 leukocytes [Ratio] in Blood by Automated count 0 /100{WBCs} 0-0 [facility] ID Date Data Source [id number] 10/14/2020 04:21:32 AM [facility] Name Value Range Interpretation Code Description Data Jazmín rce(s) Supporting Document(s) Prothrombin time (PT) 15.9 s 12.5-14.9 H [facility] INR in Platelet poor plasma by Coagulation assay [address] [place] [address] Routine intensity oral anticoagulation I NR is typically 2.0-3.0. Target INR must be clinically individualized. ID Date Data Source [id number] 10/14/2020 04:45:[address] [facility] Value Range Interpretation Code Description Data Jazmín rce(s) Supporting Document(s) Albumin [Mass/volume] in Serum or Plasma by Bromocresol green (BCG) dye binding method 2.9 g/dL 3.5-5.2 [facility] Bilirubin.total [Mass/volume] in Serum or Plasma 2.2 mg/dL <1.2 [facility] Confirmed Bilirubin.direct [Mass/volume] in Serum or Plasma 1.7 mg/dL <0.3 [facility] Alkaline phosphatase [Enzymatic activity/volume] in Serum or Plasma 172 U/L 40-129 [facility] Aspartate aminotransferase [Enzymatic activity/volume] in Serum or Plasma 33 U/L <40 [facility] Alanine aminotransferase [Enzymatic activity/volume] in Seru m or Plasma 115 U/L <41 [facility] Protein [Mass/volume] in Serum or Plasma 5.7 g/dL 6.4-8.3 L [facility] ID Date Data Source [id number] 10/14/2020 04:45:[address] [facility] Value Range Interpretation Code Description Data Jazmín rce(s) Supporting Document(s) Lipase [Enzymatic activity/volume] in Serum or Plasma 43 U/L 13-6 0 [facility] ID Date Data Source [id number] 10/14/2020 04:45:[address] [facility] Value Range Interpretation Code Description Data Jazmín rce(s) Supporting Document(s) Bicarbonate [Moles/volume] in Serum 18 mmol/L 22-29 L [facility] Chloride [Moles/volume] in Serum or Plasma 105 mmol/L 98-107 [facility] Creatinine [Mass/volume] in Serum or Plasma 2.80 mg/dL 0.70-1.20 H [facility] Icteric Glucose [Mass/volume] in Serum or Plasma 130 mg/dL 70-140 [facility] Potassium [Moles/volume] in Serum or Plasma 4.4 mmol/L 3.4-5.1 [facility] Sodium [Moles/volume] in Serum or Plasma 137 mmol/L 136-145 [facility] Urea nitrogen [Mass/volume] in Serum or Plasma 57 mg/dL 8-23 H [facility] Anion gap 3 in Serum or Plasma 14 mmol/L 8-15 [facility] Osmolality of Serum or Plasma by calculation 301 mosm/kg 275-300 H [facility] Creatinine/Urea nitrogen [Mass Ratio] in Serum or Plasma 20 [facility] Calcium [Mass/volume] in Serum or Plasma 8.7 mg/dL 8.8-10.2 [facility] Glomerular filtration rate/1.73 sq M pre dicted among non-blacks [Volume Rate/Area] in Serum or Plasma by Creatinine-based formula (MDRD) 21 mL/min/1.73m2 >60 L [facility] Glomerular filtration rate/1.73 sq M pre dicted among blacks [Volume Rate/Area] in Serum or Plasma by Creatinine-based formula (MDRD) 24 mL/min/1.73m2 >60 L [facility] ID Date Data Source [id number] 10/14/2020 12:39:[address] [facility] Value Range Interpretation Code Description Data Jazmín rce(s) Supporting Document(s) Glucose [Mass/volume] in Capillary blood by Glucometer 124 mg/dL 70- 140 [facility] ID Date Data Source [id number] 10/13/2020 08:07:[address] [facility] Value Range Interpretation Code Description Data Jazmín rce(s) Supporting Document(s) ED Provider Note [facility] XLNHCl9sMcYQUeRk90/ERUrdYOUji1WuSEmbBTb4JIgdTICfV6QwWWR7fN0uLHT5WImXLsIiCsAbDfWo lbm [file] LF6vR0wP3+HL/HiBwyWgHzkwXT0ck8eHSEcOdhsXuMn5M5Tg3NLr8hUCxnca+International Trade Manager/p1eRaQlAYobShwyd [file] [id number]5yTmTmukk+Kyoiw4PP/SC6rvoLEvNplaVS8v/lycZ4+I++/International Trade Manager [file] G8FYSbYbe+ZN2qOYz+Rp2Wo9XbxsO5nnYrYHl3AVT4VC9DYNXRN6PHGc== ID Date Data Source [id number] 10/13/2020 06:04:12 PM [facility] MR BILIARY TREE MRCP [id number] RESULTIn terpreted by:CARLY Vegas INFORMATION: Exam: MR Abdomen Without Contrast Exam date and time: 10/13/2020 3:57 PM Age: 75 years old Clinical indication: Biliary acute pancreatitis without necrosis or infection; Abdominal pain; Epigastric; Additional info: Rule out choledocholithiasis; Cystic duct obstruction TECHNIQUE: Imaging protocol: MR of the abdomen without contrast. COMPARISON: US RENAL OR AORTA COMPLETE [id number] 10/12/2020 3:47 PM FINDINGS: Liver: The liver is normal. Gallbladder and bile ducts: There is gallbladder wall thickening. There are multiple filling defects in the gallbladder consistent with gallstones. The proximal cystic duct is dilated. No obstructing calculus is visualized. The common bile duct is not dilated, measuring 5 mm in maximal diameter. Intrahepatic ducts are not dilated. No filling defect is identified to indicate choledochal calculus. Pancreas: The pancreas is normal. The pancreatic duct is not dilated. Spleen: The spleen is normal. Adrenal glands: The adrenals are normal. Kidneys and ureters: There are small renal cysts the largest is on the right measuring 9 mm. These appear to be simple cysts within the limits of a noncontrast scan. In addition there is a in 8 mm hyperintense T1 and hypointense T2 lesion in the right kidney likely a hemorrhagic cyst. No hydronephrosis. Stomach and bowel: Visualized stomach and intestines are unremarkable. Intraperitoneal space: No free fluid. Arteries: No abdominal aortic aneurysm. Bones/joints: UnremarkableSoft tissues: Unremarkable. IMPRESSION: 1. Cholelithiasis with gallbladder wall thickening suspicious for cholecystitis. The proximal cystic duct is dilated. 2. Normal bile ducts. COMMENTS: Consistent with the [employer]'s Incidental Findings Committee white paper (J Am Uday Radiol 2018): Any incidental renal lesion less than 1 cm or classified as too small to characterize, or any incidental cystic renal lesion characterized as simple-appearing, is likely benign. No follow-up imaging is recommended for these lesions per consensus recommendations based on imaging criteria. THIS DOCUMENT HAS BEEN ELECTRONICALLY SIGNED BY MIKE MACHADO MDThis document has been electronically signed by Mike Machado MD on 10/13/2020 6:04 PM Name Value Range Interpretation Code Description Data Jazm[facility] rce(s) Supporting Document(s) ID Date Data Source [id number] 10/13/2020 06:02:57 PM [facility] Name Value Range Interpretation Code Description Data Jazmín rce(s) Supporting Document(s) Glucose [Mass/volume] in Capillary blood by Glucometer 136 mg/dL 70- 140 [facility] ID Date Data Source [id number] 10/13/2020 02:04:03 PM [facility] Name Value Range Interpretation Code Description Data Jazmín e(s) Supporting Document(s) [facility] WOIGWp6gIcXQWoVy91/IMOiqEQTpb0MmGQwtILy5ZPdkJZHaV0PdKHW8mW9qBIZ0RBaSVjRlVwWcOdXx lbm [file] AgICAgICAgICAgICAgICAgICAgICAgICAgICAgICAgICAgICAgICAgICAgICAgICAgICAgICAgICAgIC AgICAgICAgICAgICAgDQogICAgICAgICAgICAgICAg ICAgICAgICAgICAgICAgICAgICAgICAgICAgICAgICAgICAgICAgICAgICAgICAgICAgICAgICAgICAg ICAgICAgICAgICAgICAgICAgICAgICAgDQogICAgICAgICAgICAgICAgICAgICAgICAgICAgICAgICAg ICAgICAgICAgICAgICAgICAgICAgICAgICAgICAgIC AgICAgICAgICAgICAgICAgICAgICAgICAgICAgICAgICAgDQogICAgICAgICAgICAgICAgICAgICAgIC AgICAgICAgICAgICAgICAgICAgICAgICAgICAgICAgICAgICAgICAgICAgICAgICAgICAgICAgICAgIC AgICAgICAgICAgICAgICAgDQogICAgICAgICAgICAg ICAgICAgICAgICAgICAgICAgICAgICAgICAgICAgICAgICAgICAgICAgICAgICAgICAgICAgICAgICAg ICAgICAgICAgICAgICAgICAgICAgICAgICAgDQogICAgICAgICAgICAgICAgICAgICAgICAgICAgICAg ICAgICAgICAgICAgICAgICAgICAgICAgICAgICAgIC AgICAgICAgICAgICAgICAgICAgICAgICAgICAgICAgICAgICAgDQogICAgICAgICAgICAgICAgICAgIC AgICAgICAgICAgICAgICAgICAgICAgICAgICAgICAgICAgICAgICAgICAgICAgICAgICAgICAgICAgIC AgICAgICAgICAgICAgICAgICAgDQogICAgICAgICAg ICAgICAgICAgICAgICAgICAgICAgICAgICAgICAgICAgICAgICAgICAgICAgICAgICAgICAgICAgICAg ICAgICAgICAgICAgICAgICAgICAgICAgICAgICAgDQogICAgICAgICAgICAgICAgICAgICAgICAgICAg ICAgICAgICAgICAgICAgICAgICAgICAgICAgICAgIC AgICAgICAgICAgICAgICAgICAgICAgICAgICAgICAgICAgICAgICAgDQogICAgICAgICAgICAgICAgIC AgICAgICAgICAgICAgICAgICAgICAgICAgICAgICAgICAgICAgICAgICAgICAgICAgICAgICAgICAgIC OyUSPyZFPfUHHnYJJnTTYzYQUvCWEtHVn1D5wgUFKl OIAiQF9zEFr0Lt9+SIxKScSkNMM2oiVxvG7NFQ3zq9QiSQziCQKmg8FmILh4SN3MOBZjVNzvFB8LCGhs dp9IEEOuKZDojPEGn3dpRjFwLUR3FXTkIeajBM8YYFHgZ9gemeHuFKJkEZZNGSbeLLCQOEvlYVIPTIPq MGRySbPzWmNqFKWjJD5UNKFaA699zeWqAN9SAb6PGc FsPY3qkw6VPhwwAHCqFfmFJan1QRnrFQ3YpPHztIDoDABjDCDRNsFkY0wbh8RdZheeATRUUOpyOF2Cq5 VudCAxDQo+Qc8BYV3dx4SoWNiiYZTrTB8klc5EAJdBWhCpI5ZwwMuzVGLbkhK9iMXmRXS4PASnuXyzJZ HsAEUmPPIgZCJXEgNGYCS8ZXKtKs1bNLLxRYKaQdIm PKKFOY8XNBEtVGWkpNCaXVKuETPOLX4URPnkIDE1EENfreJdyMXlUNfwVT1QWUNmymAuQsfuVARZEXs+ Tw9OUV3pz8ZeIJprMGOzOC2oqa5WPBjPYkHnE7Y6xFGsA3I4QXtoRn2ZXULmGJQrCjFoEODSMJfgNG0H FX2hoxC2EV6RrWJwOLZqSJBkvYTgRDi0C37qgNNsRU ksAX6LZXR+Shawn+Kn2JKTKlDWBcHSDrZeHfGFZBAgJuZ1SsA8YKo6VuC6ZuKN63vBxwskRbHXapMW0JDL 2rJHYfYXCDRJ7YsHDlrP2pxiZrXeQrIJUJKeVsE16thJBnQDAeIJN6TAXxUh5SROFrP0OyknOxkHeaia ShRJQvAHNCRK6BRTnfvdOptBVkqFhvKZ06tCbpYT1G Re6LElIuEY1xzj5OwUXdHe3VGPCzLW1DFKEzFJLwWAYoBFB5PLIkLbYrFWyhDEVgYRKeDOJ2ESHvXKZv CD8FHnQqHSIbIpHyJMJpPXCoFWDtld7QEUJaYHMeFoQ3OsFpYVAbAPJoIJdbTJUdBTBoXUP2DYYlXQCb BY1QQnDkQFTxZAMfRilgQTFrFDLhwa6CPUPzPSIaSq N4ZtCpUMRoZCHnWRytUHGjLOZ6YMTsQNVtFFVhDV1XJdDvXFGsMAClIAFkCAUmXSMchz5WIBKhMSPcOU Z2CeGqAWTySBAhAXfxZOKqTUX2FwJ3YSIqEZWaZG3MPlWwTZTuKJT1WPAcJVIpOKXxcb3WOEKoHDPoGF ajCHApVWJtWGWuUNhaEBVoCNQ7QFK4ELVsXRZkIS9I AuShSVIyHJHoUgMnLLUhPBEius1QWEMaBXWePuI1ZXRdLKEzKSWeEQqxDTHkNEO4OYxtXGTiDPFpBO7K LpDkUPBjTCg2YpNaRNIrCYJoux2PVPUeFFXaZMPnHXQwZSZfRAKhJMeqCRHuXHL8SCM9YLHrXTNgHT9P GrSrVJDlJXhuKkOvVNStEKMeiu2JQOCcHKOfLJYbCP FsCCAeJUPaRUvmHBWvWZGcKyG5OLSnLIQxAP2KWpRhSCQvNdE9SrQnPTBdORBkpl2ZDMZlKMShTSK1WW HyQSFuJKRgTOktGMWtZXYnWuFdGLQvLUIiFG9HAoCrJNUrBsP2WzAuRAKeTDYvyk6ZSUFwVUCeIqA0Sr DkLUNwDPLnFBzsYGQuNXCnVhS6MMAjFANqVN9SYiRy KMQmDdV3XFMbTKSiPORdqq8OdNPtsUelxz7IZIrGHg9UdFheNCOzKLwpUa9ilPGbYRWrBTDVMc1QujNg ZPLhDPRXMJvaOHPmOWMuXix9ZCAwJBT8UkLzSECgTkF4RRGcJEE6IuI7Y4ElVfY2CHIqOiz4CGU6Gek8 XIQcEsCqXTCtNKK5HulfPYMfSqT+VH0tRVu+Xu8Nt8LiiwY0xeQrLJmcPeK7BE1LSXKPV9LZIu== ID Date Data Source [id number] 10/13/2020 02:02:38 PM [facility] Name Value Range Interpretation Code Description Data Jazmín rce(s) Supporting Document(s) Glucose [Mass/volume] in Capillary blood by Glucometer 143 mg/dL 70- 140 [facility] ID Date Data Source [id number] 10/13/2020 09:14:59 AM [facility] Name Value Range Interpretation Code Description Data Jazmín rce(s) Supporting Document(s) Glucose [Mass/volume] in Capillary blood by Glucometer 139 mg/dL 70- 140 [facility] ID Date Data Source [id number] 10/13/2020 05:44:[address] [facility] Value Range Interpretation Code Description Data Jazmín rce(s) Supporting Document(s) Leukocytes [#/volume] in Blood by Automated count 11.9 10*3/uL 4-10 H [facility] Erythrocytes [#/volume] in Blood by Automated count 2.82 10*6/uL 4.6- 6.1 [facility] Hemoglobin [Mass/volume] in Blood 9.3 g/dL 13.5-18 L [facility] Hematocrit [Volume Fraction] of Blood by Automated count 28.4 % 4 1-53 [facility] Erythrocyte mean corpuscular volume [Entitic volume] b y Automated count 100.6 fL 80-96 H [facility] Erythrocyte mean corpuscular hemoglobin [Entitic mass] by Automated count 32.9 pg 27-33 [facility] Erythrocyte mean corpuscular hemoglobin concentration [Mass/volume] by Automated count 32.7 g/dL 32.0-36.0 [facility] distribution width [Ratio] by Automated count 16.7 % 11.5-14.5 [facility] Platelets [#/volume] in Blood by Automated count 197 10*3/uL 150-400 [facility] Differential cell count method - Blood [facility] Neutrophils/100 leukocytes in Blood by Automated count 84 % [facility] Lymphocytes/100 leukocytes in Blood by Automated count 7 % [facility] Monocytes/100 leukocytes in Blood by Automated count 7 % [facility] Eosinophils/100 leukocytes in Blood by Automated count 1 % [facility] Basophils/100 leukocytes in Blood by Automated count 1 % [facility] Neutrophils [#/volume] in Blood by Automated count 10.09 10*3/uL 1.8- 7.0 H [facility] Lymphocytes [#/volume] in Blood by Automated count 0.77 10*3/uL 1.2-4 .0 L [facility] Monocytes [#/volume] in Blood by Automated count 0.85 10*3/uL 0-0.8 H [facility] Eosinophils [#/volume] in Blood by Automated count 0.14 10*3/uL 0-0.5 [facility] Basophils [#/volume] in Blood by Automated count 0.09 10*3/uL 0-0.2 [facility] Nucleated erythrocytes/100 leukocytes [Ratio] in Blood by Automated count 0 /100{WBCs} 0-0 [facility] ID Date Data Source [id number]/13/2020 06:31:08 AM [facility] Name Value Range Interpretation Code Description Data Jazmín rce(s) Supporting Document(s) Albumin [Mass/volume] in Serum or Plasma by Bromocresol green (BCG) dye binding method 3.2 g/dL 3.5-5.2 [facility] Bilirubin.total [Mass/volume] in Serum or Plasma 3.5 mg/dL <1.2 H [facility] Confirmed Bilirubin.direct [Mass/volume] in Serum or Plasma 2.9 mg/dL <0.3 H [facility] Alkaline phosphatase [Enzymatic activity/volume] in Serum or Plasma 164 U/L 40-129 [facility] Aspartate aminotransferase [Enzymatic activity/volume] in Serum or Plasma 46 U/L <40 [facility] Alanine aminotransferase [Enzymatic activity/volume] in Seru m or Plasma 175 U/L <41 H [facility] Protein [Mass/volume] in Serum or Plasma 6.1 g/dL 6.4-8.3 L [facility] ID Date Data Source [id number] 10/13/2020 06:31:08 AM [facility] Name Value Range Interpretation Code Description Data Jazmín rce(s) Supporting Document(s) Phosphate [Mass/volume] in Serum or Plasma 3.2 mg/dL 2.5-4.5 [facility] ID Date Data Source [id number] 10/13/2020 06:31:[address] [facility] Value Range Interpretation Code Description Data Jazmín rce(s) Supporting Document(s) Lipase [Enzymatic activity/volume] in Serum or Plasma 28 U/L 13-6 0 [facility] ID Date Data Source [id number] 10/13/2020 06:31:[address] [facility] Value Range Interpretation Code Description Data Jazmín rce(s) Supporting Document(s) Bicarbonate [Moles/volume] in Serum 18 mmol/L 22-29 L [facility] Chloride [Moles/volume] in Serum or Plasma 106 mmol/L 98-107 [facility] Creatinine [Mass/volume] in Serum or Plasma 3.27 mg/dL 0.70-1.20 H [facility] Icteric Glucose [Mass/volume] in Serum or Plasma 143 mg/dL 70-140 H [facility] Potassium [Moles/volume] in Serum or Plasma 4.9 mmol/L 3.4-5.1 [facility] Sodium [Moles/volume] in Serum or Plasma 139 mmol/L 136-145 [facility] Urea nitrogen [Mass/volume] in Serum or Plasma 61 mg/dL 8-23 H [facility] Anion gap 3 in Serum or Plasma 15 mmol/L 8-15 [facility] Osmolality of Serum or Plasma by calculation 308 mosm/kg 275-300 H [facility] Creatinine/Urea nitrogen [Mass Ratio] in Serum or Plasma 19 [facility] Calcium [Mass/volume] in Serum or Plasma 9.0 mg/dL 8.8-10.2 [facility] Glomerular filtration rate/1.73 sq M pre dicted among non-blacks [Volume Rate/Area] in Serum or Plasma by Creatinine-based formula (MDRD) 17 mL/min/1.73m2 >60 L [facility] Glomerular filtration rate/1.73 sq M pre dicted among blacks [Volume Rate/Area] in Serum or Plasma by Creatinine-based formula (MDRD) 20 mL/min/1.73m2 >60 L [facility] ID Date Data Source [id number] 10/13/2020 06:31:[address] [facility] Value Range Interpretation Code Description Data Jazmín rce(s) Supporting Document(s) Magnesium [Mass/volume] in Serum or Plasma 1.8 mg/dL 1.6-2.4 [facility] ID Date Data Source [id number] 10/13/2020 06:07:[address] [facility] Value Range Interpretation Code Description Data Jazmín rce(s) Supporting Document(s) Protein [Mass/volume] in Urine 46 mg/dl [facility] Creatinine [Mass/volume] in Urine 97.9 mg/dL [facility] Protein/Creatinine [Mass Ratio] in Urine 0.47 mg/mg{creat} [facility] ID Date Data Source [id number] 10/13/2020 05:30:[address] [facility] Value Range Interpretation Code Description Data Jazmín rce(s) Supporting Document(s) Glucose [Mass/volume] in Capillary blood by Glucometer 128 mg/dL 70- 140 [facility] ID Date Data Source [id number] 10/13/2020 01:08:[address] [facility] Value Range Interpretation Code Description Data Jazmín rce(s) Supporting Document(s) Glucose [Mass/volume] in Capillary blood by Glucometer 132 mg/dL 70- 140 [facility] ID Date Data Source [id number] 10/12/2020 09:33:[address] [facility] Value Range Interpretation Code Description Data Jazmín rce(s) Supporting Document(s) Glucose [Mass/volume] in Capillary blood by Glucometer 135 mg/dL - 140 [facility] ID Date Data Source [id number] 10/13/2020 06:15:55 AM [facility] Service Cmnt XXX-Imp : NoneMicroorganism XXX Cult : Urine NEGATIVE for L. pneumophila serogroup 1 antigen by immunochromatographic assay. This test does not detect infections due to other L. pneumophila serogroups or to other Legionella species. Name Value Range Interpretation Code Description Data Jazmín rce(s) Supporting Document(s) ID Date Data Source [id number] 10/12/2020 06:11:[address] [facility] Value Range Interpretation Code Description Data Jazmín rce(s) Supporting Document(s) Glucose [Mass/volume] in Capillary blood by Glucometer 132 mg/dL 70 140 [facility] ID Date Data Source [id number] 10/12/2020 04:34:22 PM [facility] US RENAL OR AORTA COMPLETE [id number] RE SULTInterpreted by:Barak Burnette MDHISTORY: Increasing creatinine.TECHNIQUE: Multiple real-time sonographic images of the kidneys and bladder were performed. Correlation is made with images from a right upper quadrant ultrasound dated 10/11/2020.FINDINGS: The right kidney measures 11.6 x 5.3 x 4.8 cm with a parenchymal thickness of 1.3 cm. The left kidney measures 10.5 x 5.3 x 6.3 cm with a parenchymal thickness of 1.7 cm. The renal cortices demonstrate normal contour and echotexture. There are no masses, stones or hydronephrosis.The estimated bladder volume is 152.5 mL. The bladder is normal in appearance. Bilateral ureteral jets are visualized.The estimated volume of the prostate gland is 65.3 mL. The prostate gland is causing mass effect on the base of the bladder.IMPRESSION: 1. Normal kidneys.2. Marked enlargement of the prostate gland.This document has been electronically signed by Barak Burnette MD on 10/12/2020 4:32 PM Name Value Range Interpretation Code Description Data [facility] rce(s) Supporting Document(s) ID Date Data Source [id number] 10/12/2020 04:25:11 PM [facility] Name Value Range Interpretation Code Description Data [facility](s) Supporting Document(s) [facility] YYPLBl4tYqWEFfRi48/FEUgiZOGdk7EnYEgeQZq0BBjfEDUdJ1WqWTY2rY0tLYM7NNkVNiZrDuMeZaEw [facility] [file] ROUND CUTTER OPERATOR/PbJ9URuD/b9BRW+TtlWreAvVgrOfPo7ubnTluPhQlpw6ns39gd3TTr8eFVWFp3ydau9LWkLpNS8Db [file] FE7QMXo= ID Date Data Source [id number] 10/12/2020 04:05:00 PM [facility] Name Value Range Interpretation Code Description Data Jazmín rce(s) Supporting Document(s) [facility] ZNBWNz8rBcPAOzRdr7RpEqSnISTbWW4ahvk3F7H9wSEwX8XuwSNti0xoZ9YzU7JaOSLdCZXNOL5LtBTr jb2 [file] O3hV3/ya65683Oq5e4/17Xsxtd4CY63/s1/8hb9+l+H3r7/9+u9+9v2XH//6m5/+/KsvP/72R9/85Gdf fvzzX/7kP/+W5zXfyF1+7M/46id/9+d/Zlm43j/7h5 154h6Df/zyF7/60bdf/cVWS4r3/c/zD2x96r1+qe0H/8evv/mBuciW+cO2//qw7ScIG1tkH/78b//2Bx 83+c9ff/PdL7/5wT/23RvUCqf0wx/f/PLLz3/3vc702k6VE7135DnmtxM8M7dN83Oiy/zkj3/4r7/70+ 9/+y9f/q///Low//03f/hv/+M3v/vrLz/+0+9+84cv //QfXjbgf/qPX/74hy/gn3rs8YpqL1z9Ix599H3+8e8+nlPuRK0Kh//93/caB0b7HPD8BnR//3voDWtd fX9+4c5FsDwwtqs/7wgSV1ia1Eak5+9+zo7+cHEw9jnWZn/3EpQ52Y2+5aUCi6Z/wngjj5Gi6gi/+ts/ /tdq0qutzijaBg/69svPfvTT//PrX/3ou69/8qm67d Pvso1//G7PsJvdls8OeEb22S8/bqHIz6UBR2aA/VNP//vf/uHf/tOXP/8o17556x6z8+UXZc95/+j3/E JWmrrS/8LdQ/mrb7/87g//9ts//a/f/I+/mYdqtt44+/yS5y0l10cim4r88Ss/+Z8fL/+7P/7hz+9vye f+0L85ufI5q+//5r98/8/52Y9FzJZ/9Le/8Df8bvq8 gwBWdPx1n7ocYyv42dt0KIF9+cB9Uw7ouwRcK19/8pv/57f/+h0Glr9e4iIh/70QC8YuL4A3o//0T//x z/46PsQvfvM/Eo0s86v1e0/8z3/+zb9+dLU/+3209Fy/+zPlbaNv//jH3/9w/zdW6XQsk//xn3/IFjSP GXELvOrvf/marksmanship instructor//0Pv/vnj8d/cNu06Xp+6f9ok6h+9l //7aNL/csPf/Ttt++s/PWP/a9SPZHIiD15b291SDua/VYT7Oy8/f//ybvRqV+Wz7+/+s1/++2X8uWP// XzaO/vnubOBt+0h1FKmo4ioFo/M+ZAz945/Q/fifljx/YUY7uCWQqqkhqiJ8/44fE2s5Sh/egnP/nlr7 /5+VgK9pnrR7i4F/1/x+QAgZaxlgTdiZOoTP9HRH0t f9NyOsJ8VRSds6OsEZrkJXm1iKQzFYypioBhr9JzjwkkV3Mws4EhBmMmUYDwWkEcIml0ZOFuLfC3jOJr FnRbZHPlB2LvCKOuTiI4VvCvMXVJBC0TDVXxuoIvFdLbRGI+ScMpYE1rrttyKMYgb9FxEIlvRGtcJYIb A8I0pXuaWSYsS4UjiE67RZEqV0JogxP2XAM7HZCuMz AvTGFzdCAxOSAwIFI+OcIkUX4vixtcEKFfl9CwEKshIHF5iX2dAXdZZOENNVkZIStzJpV8i85wvnRQXC FuOQZiYA1SrzObsGmhkiVykMNdLZA7MtXrIQBvMSQnVkO6WVOFCXNsTHHiMYKfCWTgM0RinInqIZxOAS SXRTmMMUhwQfFkl3J3PKMfcwPPJMIKUIIWSTVTTRaI UNDkQIC3TGvhQHLoQ7QhnnPrmQYvYWGTMEuyKcaiTEGhuP8raKugI7PsVZN8k6LoSW2PL1BcZEPnNYSY XQO4h3RfEAWjnlzsphhmTuYwNPOmGLDoEHQxFB1Mwz9voHWkyiCmLILHXXcdGeapJZ0fvGisitztL5Vy aWVzKSA+RhQeIS1vcj0+XhWgHZAaSsq9UNQuODcbOV GuDBTkNQWbI0osBZKhIbWlAMMyIgJdKA8Cs6TczMTkYz1qocQyHpuQaQIfTevnRCYlFWKmYKCrLlAGJK PpPGFwTDQvCMF9XFDnUZQnUAxkVCCgENh4RJM8QBOrDSMuKZ1tKyAuDIMbBjR4WtUvEJUgRPCucfTRNZ UoKRM2GnpgWoAcMSXuHADiKClnLYFyHNArOXSpHXZ8 XKI1ASOnBrLlZZJbRCVuFQAyEBQsJQHxsyXHZGOeRAVbDLL4NZVxWHAbFFOkAGccKGJvCYTeLQzqMCQv UMNrMK8wFnVkGRBaYJIeHKytGXQuQOGxxeDUGYUrRYWpHONtUTOaAECuEGRyZQooCNSyPPKbKQUnUMVk QAQgDA1bDcXbYGLtXQK7VLTeSARyMWJniaJQZVVpEA MgYQy4BNEgAQFzEXHgDFplJRYwCWOrHFI2KHSpIQYiBA3xOzEpCJQfDEM7SfMhAWStLAQyxqGFIZIqZH SrQAT1BdLoSYFvSRRvBYvlOEIwGHUuOXtdGTRpJNEbAQ3tGvHtFXWlBEOfHCehQEPmUDZljuZHOPRyGS AwMTQwNiAwMDAwMCBuIAowMDAwMDczNjMzIDAwMDAw XI1bBsJvXWZyZCK1EAreMVDjWPNhgrVFSNZyTGVoRAubBTVoEKXmJBFeOVpeQBOtEOTlFDB2TOXmZDEw GN1kJfAyRRQoJSCwFMYrHmM3KgYbAbIKnNEevIwxpwb9HJxoF8j6GPBcMNiyTT1eojTtLGBoHqfjCi0a pFZ6WLBqMbvTKt3Ai4WvteT0nqIrLdd6LFJ6EvUzGK8M ID Date Data Source [id number] 10/12/2020 02:32:43 PM [facility] Name Value Range Interpretation Code Description Data [facility] rce(s) Supporting Document(s) Bicarbonate [Moles/volume] in Serum 18 mmol/L 22-29 L [facility] Chloride [Moles/volume] in Serum or Plasma 105 mmol/L 98-107 [facility] Creatinine [Mass/volume] in Serum or Plasma 3.19 mg/dL 0.70-1.20 H [facility] Icteric Glucose [Mass/volume] in Serum or Plasma 155 mg/dL 70-140 H [facility] Potassium [Moles/volume] in Serum or Plasma 5.0 mmol/L 3.4-5.1 [facility] Sodium [Moles/volume] in Serum or Plasma 138 mmol/L 136-145 [facility] Urea nitrogen [Mass/volume] in Serum or Plasma 65 mg/dL 8-23 H [facility] Anion gap 3 in Serum or Plasma 16 mmol/L 8-15 H [facility] Osmolality of Serum or Plasma by calculation 308 mosm/kg 275-300 H [facility] Creatinine/Urea nitrogen [Mass Ratio] in Serum or Plasma 20 [facility] Calcium [Mass/volume] in Serum or Plasma 9.1 mg/dL 8.8-10.2 [facility] Glomerular filtration rate/1.73 sq M pre dicted among non-blacks [Volume Rate/Area] in Serum or Plasma by Creatinine-based formula (MDRD) 18 mL/min/1.73m2 >60 L [facility] Glomerular filtration rate/1.73 sq M pre dicted among blacks [Volume Rate/Area] in Serum or Plasma by Creatinine-based formula (MDRD) 21 mL/min/1.73m2 >60 L [facility] ID Date Data Source [id number] 10/12/2020 02:32:43 PM [facility] Name Value Range Interpretation Code Description Data [facility] rce(s) Supporting Document(s) Troponin T.cardiac [Mass/volume] in Serum or Plasma 0.03 ng/mL <0.01 H [facility] ID Date Data Source [id number] 10/12/2020 02:02:06 PM [facility] Name Value Range Interpretation Code Description Data [facility] rce(s) Supporting Document(s) Glucose [Mass/volume] in Capillary blood by Glucometer 134 mg/dL 70- 140 [facility] ID Date Data Source [id number] 10/12/2020 12:33:[address] [facility] Value Range Interpretation Code Description Data [facility] rce(s) Supporting Document(s) History and Physical [facility] TONORv5nRzPGWeGm58/XHLnyMBCpg0HkEVovAFz1UDmhMCLiK9YfQPG1aR9uAMB4MGbPZrJpVdZaPoHs lbm [file] AgICAgICAgICAgICAgICAgICAgICAgICAgICAgICAgICAgICAgICAgICAgICAgICAgICAgICAgICAgIC ZrBMRwEOLxSA9GWCCyMUIcQASmDNFaWIGfUBKhCPFc ICAgICAgICAgICAgICAgICAgICAgICAgICAgICAgICAgICAgICAgICAgICAgICAgICAgICAgICAgICAg SAIiURGxSCHdDPCjHYCbEWYkYW8MJZPaEDRoTWApTOUnFTOcBBXtZYAxVINyOXTmRLQuEHLhVNMcCYSt ICAgICAgICAgICAgICAgICAgICAgICAgICAgICAgIC JjXUOnOPPyLDQmFFBnRHYwMOXvMCKeUKNxRQQvWM8NRJIlIJTpEHGeRGUySVGcJJFuKIHzYXPwHQYmJA AgICAgICAgICAgICAgICAgICAgICAgICAgICAgICAgICAgICAgICAgICAgICAgICAgICAgICAgICAgIC HyTULtZNNpPDVcPL7CXCFiTPMoQQJxBFFuWEHkMDAs ICAgICAgICAgICAgICAgICAgICAgICAgICAgICAgICAgICAgICAgICAgICAgICAgICAgICAgICAgICAg HIZbXIOwELAqYJYfHUDxHCYcLJCiAM1XEJHqLZZxJDRvNHSmNQBmGDMfXPDyQJRxOZQhPQDuZYZhDTXt ICAgICAgICAgICAgICAgICAgICAgICAgICAgICAgIC EvKEZbWCZtNECnBKYqPVFuOZScJKDfXKSaIOTmGSXsQO3QPVXkLNFoTKQaNNZhEBNxAGOwGSLqSKNnSJ AgICAgICAgICAgICAgICAgICAgICAgICAgICAgICAgICAgICAgICAgICAgICAgICAgICAgICAgICAgIC CwLHIbSHPkWPReNWEiWT8TMBGaIWOjOWAkXZAqYDZf ICAgICAgICAgICAgICAgICAgICAgICAgICAgICAgICAgICAgICAgICAgICAgICAgICAgICAgICAgICAg XMEuFYBbDYOoYLXmGRHmLVLvSAVrJRHeCS2TAFXaPYEqNHLsFPMeAWHqVLTnOCNuNUAvXHPzKVDbCUIz ICAgICAgICAgICAgICAgICAgICAgICAgICAgICAgIC IiFCByBJTtKLLjELCnXTZyWNXwOVSpPYKqXYApJSThFEJbIB1NLREsPGYuEKUzKLQnWTMmOZPhWWNhSQ AgICAgICAgICAgICAgICAgICAgICAgICAgICAgICAgICAgICAgICAgICAgICAgICAgICAgICAgICAgIC JgNQPeELQbOEUySQLxJEHzVI8PSC30gMWlh7X0EKKq WY1hnuz/La6HYZwnogGygZTpJZ3CAqLuTT3kuf7BDfAlAV0tlr8APUoIOzDcB6T8nPUlEAHzMCPWWlCa U52oGFbwVj43UNkqHRZgAnHzFYm5Xo9EBoZxK1fdPYBbVvB3DCLbJsW7GUKmJpX8WPPdWjVrQIAyTVRe KOShZNZVKSJ7BSPnFnPuFEcoKT8Fl8HguCZ1SMp+Pg 1WLQ4ug3VnZPhaJJSgTT2pix5HHOcBLhMtX3OnbqV5HWT8YEOwVy1XANGdBRFzqZJpZaHkKYSSLmLkO2 MvdA71MDTEKy0+DNlemdXbBibHCkT2IDZnv3TkIXv2WW5VRPQqLDe5vAThVUSRHRA8JFMgCFPxkaTOaR QytcwxSYQkTGHeWz4eGI4fDFYcEUS6KcF4ZJFIJQ4L MZRpCZObuUBvIPNdROKXNG1BDGgbCQC5SNDzroOpjVYmYQuyEI9GBRXhovLbMzMzOVOLXRe+Xi2QXI3b k7EjFXvdKjEqKY2cpe9PVFqDQbTiF3K2oGDyY6P4RErhRv7GNXCdGNByNrPvMPNIKFhrYL7VUX4kwgA1 NW3ZuRQlNUSbMRRxhVCdPGa2S12bhBPpSOjfZH7WKN A+Shawn+Is2SCJRqQBRqTKFsNjLsQEZYKrPyH9WkA7YLk4VwK0CzSX93uUyapoVkBMwoDV4OOD2pXDFaWD DAPX1JaXTcvY7xhgVtJHGdMNLJSkOaZ70haHKlCCJmTZV8SJEgSd7VOUJvG5FjjbZgeSunviIkUSIoTQ MYVU8HTAnmfvQeuSDhaHibYF59fDaqOL5BZf4TEtPl XQ1ybe5HfCAxSu2YDXXkLS1QYQWyRGTvVPHcNRZ3NNTdBxGyRVukSFUiTKCuEEC1SHKbMZTeRR8IGaJg BXKyTeGyRiDnGJLjLCWick9KUJNbIJOzCJf0THEcRDBgQUKlFWepULTgCMOaSBA8AMLlKPDfLM5IHcGl MSFlGLZ1HKrbUKGsTMBxox7XTXNgURPlOUC5LyGeVJ IbITFbWNepLAJnYFV7SLQ3QIBcROVeQK6NPqQsBRNuOIP2FFmsPVWqWPWxsw3EDVRtVZXyLQp4GPKiZQ YfSLPdLXyaKZOrPXC1HAY6GSMzZXPyJC2TYjJhXKIhRRT2IyjmJPUwBMNsmp7GGXPsMXQeSpC5YIZaHE EqGCEwTCjqMUYwZAH0VCV9TWRcLBLhLH7SNsNgSSOj WDWuKaSsDUDrCYTdqb9ACKQpATJxVpS6TACdAUOdGMGyFXjmWOSjHVB6Fjl2HIAgGJUvUX2UThYtCMMb QFhcZnYnIMQzHKQwgw8NTTVzHTOtTzZpSdJdWMUsQNMpRFfqWOLzTGZ4EzK0PQArWXChHW6WScOpTTDb IUk3DtUsROUeKQNjpu3FBYJhGPJoUGs2RuVvAQXtNU CpEChlYYHtNEC1QRN5CNUnDQQwGV0TUlJpNBAgFoLsDyQeKSYbNCHpua4PGPGjYTSmUEZgZIYvOMJpXN BnUGrwLELhUIZnOLI7JKCeGAXkYY1XMuUtSSMxLtI7MBuuJOHhHNXnak6OZNKaRBIhWhCwVwHtBGQzWU ZeJEsxVHGeHUWnDhG9LORyXSRbUJ5OIuGgDJFuWkP3 XWPwDNSxIOCnfc0IZWWpLSOnPfcaDYPeMAWsDHQcPXxgZVZzPOYoOlH2FXVpMVTvDV1YSpDcVWByNbU4 NwPgWEJsKTArrp9CWSAsRFYwTJAwEWXdBFTcINScLHqeCDAhOJW2YQC4NUHhWCUeVB2HBiYxPAGeNrZ7 EDXzXOYaRFWycl1WDJRfBDBvCXv7HvRmMZCtRQJmCF ipAGEpPKA2YQOfCWXpLRGePA5UYsNoGTlkIQOFXmg0MLnfY5d1ROQoXT7UI3Ycm3GmByqpMVBLLIrfHF 7vtlOhJJPySd7TT9pWHtidIBebRUbqVkWmWHLnZYpxHHe5RjO0TaDhJYq6BnLmUe6nAKW5DPF1V6RkSB O1SqB7OWJgDEAlWishCUB3WZUtXiP3MzVkRN4ESw2TTiH5BMB1qBBbDw0RMkNwUsRQIrEpON7SNYz= ID Date Data Source [id number] 10/12/2020 10:10:55 AM EST [facility] Name Value Range Interpretation Code Description Data Jazmín rce(s) Supporting Document(s) Consultation [facility] RHTOMz1zXeQXOmYi62/DZRqxAZAxp2WoEDpsFGj8NGarBRWfS7NkVDO1bC3dCQV5LUeYViSlMjGvNbRh lbm [file] == ID Date Data Source [id number] 10/12/2020 10:05:47 AM [facility] Name Value Range Interpretation Code Description Data Jazmín rce(s) Supporting Document(s) Glucose [Mass/volume] in Capillary blood by Glucometer 148 mg/dL 70- 140 H [facility] ID Date Data Source [id number] 10/12/2020 09:36:47 AM [facility] Name Value Range Interpretation Code Description Data Jazmín rce(s) Supporting Document(s) Hepatitis C virus Ab [Presence] in Serum or Plasma by Immuno assay Non Reactive [facility] No serological evidence of active infect ion. If recent exposure is suspected, test for HCV RNA. ID Date Data Source [id number] 10/12/2020 06:39:00 AM [facility] Name Value Range Interpretation Code Description Data Jazmín rce(s) Supporting Document(s) Leukocytes [#/volume] in Blood by Automated count 19.0 10*3/uL 4-10 H [facility] Erythrocytes [#/volume] in Blood by Automated count 3.05 10*6/uL 4.6- 6.1 L [facility] Hemoglobin [Mass/volume] in Blood 10.0 g/dL 13.5-18 L [facility] Hematocrit [Volume Fraction] of Blood by Automated count 31.0 % 4 1-53 L [facility] Erythrocyte mean corpuscular volume [Entitic volume] b y Automated count 101.6 fL 80-96 H [facility] Erythrocyte mean corpuscular hemoglobin [Entitic mass] by Automated count 32.9 pg 27-33 [facility] Erythrocyte mean corpuscular hemoglobin concentration [Mass/volume] by Automated count 32.4 g/dL 32.0-36.0 [facility] distribution width [Ratio] by Automated count 16.3 % 11.5-14.5 H [facility] Platelets [#/volume] in Blood by Automated count 202 10*3/uL 150-400 [facility] Differential cell count method - Blood [facility] Neutrophils/100 leukocytes in Blood by Automated count 90 % [facility] Lymphocytes/100 leukocytes in Blood by Automated count 4 % [facility] Monocytes/100 leukocytes in Blood by Automated count 6 % [facility] Eosinophils/100 leukocytes in Blood by Automated count 0 % [facility] Basophils/100 leukocytes in Blood by Automated count 0 % [facility] Neutrophils [#/volume] in Blood by Automated count 17.12 10*3/uL 1.8- 7.0 H [facility] Lymphocytes [#/volume] in Blood by Automated count 0.67 10*3/uL 1.2-4 .0 L [facility] Monocytes [#/volume] in Blood by Automated count 1.20 10*3/uL 0-0.8 H [facility] Eosinophils [#/volume] in Blood by Automated count 0.01 10*3/uL 0-0.5 [facility] Basophils [#/volume] in Blood by Automated count 0.04 10*3/uL 0-0.2 [facility] Nucleated erythrocytes/100 leukocytes [Ratio] in Blood by Automated count 0 /100{WBCs} 0-0 [facility] ID Date Data Source [id number] 10/12/2020 06:50:[address] [facility] Value Range Interpretation Code Description Data Jazmín rce(s) Supporting Document(s) Prothrombin time (PT) 17.5 s 12.5-14.9 H [facility] INR in Platelet poor plasma by Coagulation assay 1.41 [facility] Routine intensity oral anticoagulation I NR is typically 2.0-3.0. Target INR must be clinically individualized. ID Date Data Source [id number] 10/12/2020 07:29:[address] [facility] Value Range Interpretation Code Description Data Jazmín rce(s) Supporting Document(s) Troponin T.cardiac [Mass/volume] in Serum or Plasma 0.03 ng/mL <0.01 H [facility] ID Date Data Source [id number] 10/12/2020 07:29:22 AM [facility] Name Value Range Interpretation Code Description Data Jazmín rce(s) Supporting Document(s) Albumin [Mass/volume] in Serum or Plasma by Bromocresol green (BCG) dye binding method 3.5 g/dL 3.5-5.2 [facility] Bilirubin.total [Mass/volume] in Serum or Plasma 4.6 mg/dL <1.2 H [facility] Calcium [Mass/volume] in Serum or Plasma 8.8 mg/dL 8.8-10.2 [facility] Chloride [Moles/volume] in Serum or Plasma 104 mmol/L 98-107 [facility] Creatinine [Mass/volume] in Serum or Plasma 3.35 mg/dL 0.70-1.20 H [facility] Icteric Glucose [Mass/volume] in Serum or Plasma 156 mg/dL 70-140 H [facility] Alkaline phosphatase [Enzymatic activity/volume] in Serum or Plasma 154 U/L 40-129 H [facility] Potassium [Moles/volume] in Serum or Plasma 4.9 mmol/L 3.4-5.1 [facility] Protein [Mass/volume] in Serum or Plasma 6.4 g/dL 6.4-8.3 [facility] Sodium [Moles/volume] in Serum or Plasma 137 mmol/L 136-145 [facility] Aspartate aminotransferase [Enzymatic activity/volume] in Serum or Plasma 77 U/L <40 H [facility] Urea nitrogen [Mass/volume] in Serum or Plasma 65 mg/dL 8-23 H [facility] Osmolality of Serum or Plasma by calculation 306 mosm/kg 275-300 H [facility] Creatinine/Urea nitrogen [Mass Ratio] in Serum or Plasma 19 [facility] Bicarbonate [Moles/volume] in Serum 20 mmol/L 22-29 L [facility] Alanine aminotransferase [Enzymatic activity/volume] in Seru m or Plasma 281 U/L <41 H [facility] Anion gap 3 in Serum or Plasma 13 mmol/L 8-15 [facility] Glomerular filtration rate/1.73 sq M pre dicted among non-blacks [Volume Rate/Area] in Serum or Plasma by Creatinine-based formula (MDRD) 17 mL/min/1.73m2 >60 L [facility] Glomerular filtration rate/1.73 sq M pre dicted among blacks [Volume Rate/Area] in Serum or Plasma by Creatinine-based formula (MDRD) 19 mL/min/1.73m2 >60 L [facility] ID Date Data Source [id number] 10/12/2020 09:11:[address] [facility] Value Range Interpretation Code Description Data Jazmín rce(s) Supporting Document(s) Bilirubin.direct [Mass/volume] in Serum or Plasma 4.1 mg/dL <0.3 H [facility] ID Date Data Source [id number] 10/12/2020 09:11:[address] [facility] Value Range Interpretation Code Description Data Jazmín rce(s) Supporting Document(s) Lipase [Enzymatic activity/volume] in Serum or Plasma 212 U/L 13-6 0 H [facility] ID Date Data Source [id number] 10/12/2020 06:13:[address] [facility] Value Range Interpretation Code Description Data Jazmín rce(s) Supporting Document(s) Glucose [Mass/volume] in Capillary blood by Glucometer 142 mg/dL 70- 140 H [facility] ID Date Data Source [id number] 10/12/2020 02:01:[address] [facility] Value Range Interpretation Code Description Data Jazmín rce(s) Supporting Document(s) Glucose [Mass/volume] in Capillary blood by Glucometer 156 mg/dL 70- 140 H [facility] ID Date Data Source [id number] 10/12/2020 12:31:[address] [facility] Value Range Interpretation Code Description Data Jazmín rce(s) Supporting Document(s) Troponin T.cardiac [Mass/volume] in Serum or Plasma 0.03 ng/mL <0.01 H [facility] ID Date Data Source [id number] 10/11/2020 11:57:[address] [facility] Value Range Interpretation Code Description Data Jazmín rce(s) Supporting Document(s) History and Physical [facility] CPRADk6bNjUQSnYh16/WPBonLKHqm4XpPYpzWFp5OYwyXFWfO2ZkHPQ4dS5lLZJ4DUnLHhTaVlZpOaY1 lbm ZyJcaINrMsWRWtRdtKVbGmCCduDzrqiOUcWM0TqRZ9NKQyB61zNALsEQJxZ8UmDBJ5BVy+Lh0TZFAsqV YrVS7BEieQ2U1vIbkLKg8+Vfc/VXUS1tHVyuy72UeRR/cdRBe0hBW6p7sEFSWrUpi72M+/1T4k+uf1D/ JqANRYy4rYF0Wk9kBI8+lZGVP+751bKr6vurJk/xb/ jFPPnIzM3/9mlo/23oRg6Z/cRlQY1lEAWL1E/1L3m4yxd4QDm+KDNHp7Nq6rm4iCNlXP2yKpxXO92Ul3 3J/WadbG1alixokuS5/vAx7yN3wM7U/w5Ik5/j27PKquFeW7oEmeN0xW+meZsQjcdSN/Det5NyaRr0ph j7ZqDNmpcsmoAdQo1U+6WV5U461XvRzzLV53YQ9z34 ul4iTlh/IiNR6duULSgVdoKhGgI9ksrU1Liqt2QzbKBzIsAJpw7rQx9r36D90y3xiUB31DNM5XB626L1 wZv2CmXJvbqOOayVgEkc2kWAKRqcQh+J09x045+Um+rcT2msR/3V3nUr5kq96/ZZhoH7sNTBLCkurn2r 7wfztR3MvmIf41tw0zEVvTCzHA5qGeDM7YURoWaX0Y VqNudtQ3AzTuKcmu9OfkaTyaVgNdwb0/v+l8xb1o2gotQDajbRO7xFZ/Av4xX68vU4Qw+x2lOeuZeZQz UAGv+Ut52nAywC/VxiNgPzDhLOLF2E4WygwQXbCUF3q6gOE2GTsX2Yg3ueS+KC3w/NGnoS3o9RMi/YSABEL xWpeyndymcmx/xidxe7wQSKdWIbrzbLnHG91RD6Zdy [file] X3Gj0xSAICMs5+ONwclXGaaJawUDXZNrN8HQKwCFjgCZAXGi9I ID Date Data Source [id number] 10/11/2020 10:28:31 PM [facility] Name Value Range Interpretation Code Description Data Jazmín rce(s) Supporting Document(s) Glucose [Mass/volume] in Capillary blood by Glucometer 205 mg/dL 70- 140 H [facility] ID Date Data Source [id number] 10/16/2020 11:15:58 AM [facility] Service Cmnt XXX-Imp : LACMicroorganism XXX Cult : No growth 5 days Name Value Range Interpretation Code Description Data Jazmín rce(s) Supporting Document(s) ID Date Data Source [id number] 10/11/2020 10:06:18 PM [facility] Name Value Range Interpretation Code Description Data Jazmín rce(s) Supporting Document(s) Lactate [Moles/volume] in Serum or Plasma 1.8 mmol/l 0.5-2.2 [facility] ID Date Data Source [id number] 10/11/2020 10:00:22 PM [facility] Name Value Range Interpretation Code Description Data Jazmín rce(s) Supporting Document(s) Color of Urine [facility] Clarity of Urine [facility] Specific gravity of Urine by Refractometry automated 1.012 1.003 -1.030 [facility] pH of Urine by Automated test strip 5.0 5.0-8.0 [facility] Protein [Mass/volume] in Urine by Automated test strip 100 mg/dL Neg [facility] Glucose [Mass/volume] in Urine by Automated test strip 50 mg/dL Neg [facility] Ketones [Mass/volume] in Urine by Automated test strip Neg [facility] Bilirubin.total [Presence] in Urine by Automated test strip Negative [facility] Hemoglobin [Presence] in Urine by Automated test strip Neg [facility] Leukocyte esterase [Presence] in Urine by Automated test strip Negative [facility] Nitrite [Presence] in Urine by Automated test strip [facility] Leukocytes [#/area] in Urine sediment by Automated count 0 -5 [facility] Erythrocytes [#/area] in Urine sediment by Automated count 0-3 [facility] Service comment [facility] ID Date Data Source [id number] 10/11/2020 10:00:38 PM [facility] Name Value Range Interpretation Code Description Data Jazmín rce(s) Supporting Document(s) Creatinine [Mass/volume] in Urine 68.0 mg/dl [facility] ID Date Data Source [id number] 10/11/2020 10:00:38 PM [facility] Name Value Range Interpretation Code Description Data Jazmín rce(s) Supporting Document(s) Sodium [Moles/volume] in Urine 50 mmol/L [facility] ID Date Data Source [id number] 10/11/2020 10:00:38 PM [facility] Name Value Range Interpretation Code Description Data Jazmín rce(s) Supporting Document(s) Urea nitrogen [Mass/volume] in Urine 659 mg/dL [facility] ID Date Data Source [id number] 10/11/2020 09:45:[address] [facility] Value Range Interpretation Code Description Data Jazmín rce(s) Supporting Document(s) pH of Venous blood 7.31 7.36-7.41 L [facility] Carbon dioxide [Partial pressure] in Venous blood 40 mmHg 40-45 [facility] Oxygen [Partial pressure] in Venous blood 34 mmHg [facility] Base excess in Venous blood by calculation [facility] Carbon dioxide, total [Moles/volume] in Venous blood by calculat ion 21 mmol/L [facility] Oxygen saturation in Venous blood 61 % 60-85 [facility] ID Date Data Source [id number] 10/11/2020 09:24:47 PM [facility] XR CHEST FRONTAL ONLY [id number] RESULTI nterpreted by:SIRIA GibbonsPROCEDURE INFORMATION: Exam: XR Chest Exam date and time: 10/11/2020 9:09 PM Age: 75 years old Clinical indication: Biliary acute pancreatitis without necrosis or infection; Chest pain; Additional info: Dyspnea TECHNIQUE: Imaging protocol: XR of the chest Views: 1 view. COMPARISON: No relevant prior studies available. FINDINGS: Lungs: Patchy and streaky opacity in the right lung base, could be due to subsegmental atelectasis and/or developing infiltrate. Pleural spaces: Unremarkable. No pleural effusion. No pneumothorax. Heart/Mediastinum: Mild cardiomegaly. Bones/joints: Status post sternotomy. The superior most sternotomy wire is broken. SpondylosisIMPRESSION: Patchy and streaky opacity in the right lung base, could be due to subsegmental atelectasis and/or developing infiltrate. THIS DOCUMENT HAS BEEN ELECTRONICALLY SIGNED BY ABDI Strickland document has been electronically signed by SIRIA Gibbons on 10/11/2020 9:24 PM Name Value Range Interpretation Code Description Data Jazmín rce(s) Supporting Document(s) ID Date Data Source [id number] 10/16/2020 11:15:58 AM [facility] Service Cmnt XXX-Imp : RACMicroorganism XXX Cult : No growth 5 days Name Value Range Interpretation Code Description Data [facility] rce(s) Supporting Document(s) ID Date Data Source [id number] 10/11/2020 07:45:27 PM [facility] US ABDOMEN LIMITED [id number] RESULTInte rpreted by:SIRIA GibbonsPROCEDURE INFORMATION: Exam: US Abdomen, Limited; Right Upper Quadrant Exam date and time: 10/11/2020 6:55 PM Age: 75 years old Clinical indication: Abdominal pain; Additional info: Ruq pain TECHNIQUE: Imaging protocol: US abdomen. Real time ultrasound with image documentation. Limited exam focused on the right upper quadrant. COMPARISON: GALLBLADDER US 10/11/2020 2:11 PM FINDINGS: Liver: Normal. No masses. Gallbladder: Cholelithiasis and sludge in the gallbladder. Gallbladder wall measures up to 2 mm in thickness. Gallbladder kimberly sures 12.2 x 5.6 centimetres. As per the technologist note, sonographic Sharp sign is positive. Common bile duct: Measures 6 mm. Pancreas: Visualized pancreas is unremarkable. Right kidney: Measures 11.5 centimetres. No hydronephrosis. IMPRESSION: Distended gallbladder with cholelithiasis and sludge. No evidence of gallbladder wall thickening. As per the technologist note, sonographic Sharp sign is positive. Correlate clinically.THIS DOCUMENT HAS BEEN ELECTRONICALLY SIGNED BY ABDI Matthews document has been electronically signed by SIRIA Gibbons on 10/11/2020 7:45 PM Name Value Range Interpretation Code Description Data Jazmín rce(s) Supporting Document(s) ID Date Data Source [id number] 10/11/2020 07:41:00 PM EST [facility] Name Value Range Interpretation Code Description Data Jazmín rce(s) Supporting Document(s) SARS-CoV-2 RNA 2019 nCoV Real-Time RT-PCR: NOT DETECTED [facility] This lab was ordered by [facility] and reported by [facility]. ID Date Data Source [id number] 10/11/2020 08:58:01 PM [facility] Service Cmnt XXX-Imp : NoneRespiratory P CR Panel : PCR ResultsMicroorganism XXX Cult : See Labs Tab for 2019 nCoV RT-PCR resultsHAdV DNA QI MATHEW+non-probe : Not DetectedHCoV [id number] Nph QI MATHEW+non-probe : Not DetectedHCoV NKK1JAD Nph QI MATHEW+non-probe : Not YvaxzqedQJwOAF28 RNA Nph QI MATHEW+non-probe : Not QhstfsaaFCqWFX68 RNA Upper resp QI MATHEW+probe : Not DetectedhMPV RNA Nph QINAA+non-probe : Not DetectedRV+EV RNA Nph QI MATHEW+non-probe : Not DetectedFLUAV RNA Nph QI MATHEW+ non-probe : Not DetectedFLUBV RNA Nph QI MATHEW+non-probe : Not DetectedHPIV1 RNA NphQINAA+non-probe : Not DetectedHPIV2 RNA Nph QINAA+non-probe : Not DetectedHPVI3 RNA Nph MATHEW+non-probe : Not DetectedHPIV4 RNA Nph Q MATHEW+non-probe : Not DetectedRSV RNA Nph Q MATHEW+non-probe : Not DetectedB pert.PT PrmtNph Q MATHEW+non-probe : Not DetectedC pneum DNA Nph Q MATHEW+non-probe : Not DetectedM pneum DNA Nph Q MATHEW+non-probe : Not DetectedB bphjfVS199 DNA Nph MATHEW+non-probe : Not Detected Name Value Range Interpretation Code Description Data Jazmín rce(s) Supporting Document(s) ID Date Data Source [id number] 10/11/2020 08:57:31 PM [facility] Name Value Range Interpretation Code Description Data Jazmín rce(s) Supporting Document(s) Specimen source [Identifier] of Unspecified specimen [facility] SARS-CoV-2 RNA 2019 nCoV Real-Time RT-PCR: NOT DETECTED [facility] Assay Performed [facility] Patients first test for condition [facility] 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 [facility] Patient has symptoms related to condition [facility] When did you start to experience these symptoms [Date and time] [Phen X] [facility] Patient was hospitalized because of this condition [facility] patient was admitted to ICU for condition [facility] Patient resides in a congregate care setting [facility] status [facility] ID Date Data Source [id number] 10/11/2020 07:13:33 PM [facility] Name Value Range Interpretation Code Description Data Jazmín rce(s) Supporting Document(s) ABO and Rh group [Type] in Blood [facility] Blood group antibody screen [Presence] in Serum or Plasma [facility] Performed at [facility], [address] [place] Confirmed ID Date Data Source [id number] 10/11/2020 10:35:[address] [facility] Value Range Interpretation Code Description Data Jazmní rce(s) Supporting Document(s) Hemoglobin A1c/Hemoglobin.total in Blood by HPLC 6.4 % 4.0-6.0 H [facility] Glucose mean value [Mass/volume] in Blood Estimated fr om glycated hemoglobin 137 mg/dL <126 H [facility] ID Date Data Source [id number] 10/11/2020 06:25:47 PM [facility] Name Value Range Interpretation Code Description Data Jazmín rce(s) Supporting Document(s) Leukocytes [#/volume] in Blood by Automated count 18.4 10*3/uL 4-10 H [facility] Erythrocytes [#/volume] in Blood by Automated count 3.12 10*6/uL 4.6- 6.1 L [facility] Hemoglobin [Mass/volume] in Blood 10.2 g/dL 13.5-18 L [facility] Hematocrit [Volume Fraction] of Blood by Automated count 31.6 % 4 1-53 L [facility] Erythrocyte mean corpuscular volume [Entitic volume] b y Automated count 101.4 fL 80-96 H [facility] Erythrocyte mean corpuscular hemoglobin [Entitic mass] by Automated count 32.7 pg 27-33 [facility] Erythrocyte mean corpuscular hemoglobin concentration [Mass/volume] by Automated count 32.2 g/dL 32.0-36.0 [facility] E[facility]th[facility] distribution width [Ratio] by Automated count 16.1 % 11.5-14.5 H [facility] Platelets [#/volume] in Blood by Automated count 211 10*3/uL 150-400 [facility] Differential cell count method - Blood [facility] Neutrophils/100 leukocytes in Blood by Automated count 93 % [facility] Lymphocytes/100 leukocytes in Blood by Automated count 2 % [facility] Monocytes/100 leukocytes in Blood by Automated count 5 % [facility] Eosinophils/100 leukocytes in Blood by Automated count 0 % [facility] Basophils/100 leukocytes in Blood by Automated count 0 % [facility] Neutrophils [#/volume] in Blood by Automated count 17.28 10*3/uL 1.8- 7.0 H [facility] Lymphocytes [#/volume] in Blood by Automated count 0.32 10*3/uL 1.2-4 .0 L [facility] Monocytes [#/volume] in Blood by Automated count 0.84 10*3/uL 0-0.8 H [facility] Eosinophils [#/volume] in Blood by Automated count 0.00 10*3/uL 0-0.5 [facility] Basophils [#/volume] in Blood by Automated count 0.01 10*3/uL 0-0.2 [facility] Nucleated erythrocytes/100 leukocytes [Ratio] in Blood by Automated count 0 /100{WBCs} 0-0 [facility] ID Date Data Source [id number] 10/11/2020 06:47:57 PM [facility] Name Value Range Interpretation Code Description Data Jazmín rce(s) Supporting Document(s) Albumin [Mass/volume] in Serum or Plasma by Bromocresol green (BCG) dye binding method 3.9 g/dL 3.5-5.2 [facility] al Bilirubin.total [Mass/volume] in Serum or Plasma 4.0 mg/dL <1.2 H [facility] Bilirubin.direct [Mass/volume] in Serum or Plasma 3.6 mg/dL <0.3 H [facility] Alkaline phosphatase [Enzymatic activity/volume] in Serum or Plasma 153 U/L 40-129 H [facility] Aspartate aminotransferase [Enzymatic activity/volume] in Serum or Plasma 135 U/L <40 H [facility] Alanine aminotransferase [Enzymatic activity/volume] in Seru m or Plasma 382 U/L <41 H [facility] Protein [Mass/volume] in Serum or Plasma 6.8 g/dL 6.4-8.3 [facility] ID Date Data Source [id number] 10/11/2020 06:47:[address] [facility] Value Range Interpretation Code Description Data Jazmín rce(s) Supporting Document(s) Bicarbonate [Moles/volume] in Serum 17 mmol/L 22-29 L [facility] Chloride [Moles/volume] in Serum or Plasma 103 mmol/L 98-107 [facility] Creatinine [Mass/volume] in Serum or Plasma 2.84 mg/dL 0.70-1.20 H [facility] Icteric Glucose [Mass/volume] in Serum or Plasma 237 mg/dL 70-140 H [facility] Potassium [Moles/volume] in Serum or Plasma 5.1 mmol/L 3.4-5.1 [facility] Sodium [Moles/volume] in Serum or Plasma 134 mmol/L 136-145 L [facility] Urea nitrogen [Mass/volume] in Serum or Plasma 63 mg/dL 8-23 H [facility] Anion gap 3 in Serum or Plasma 14 mmol/L 8-15 [facility] Osmolality of Serum or Plasma by calculation 304 mosm/kg 275-300 [facility] Creatinine/Urea nitrogen [Mass Ratio] in Serum or Plasma 22 [facility] Calcium [Mass/volume] in Serum or Plasma 9.1 mg/dL 8.8-10.2 [facility] Glomerular filtration rate/1.73 sq M pre dicted among non-blacks [Volume Rate/Area] in Serum or Plasma by Creatinine-based formula (MDRD) 20 mL/min/1.73m2 >60 L [facility] Glomerular filtration rate/1.73 sq M pre dicted among blacks [Volume Rate/Area] in Serum or Plasma by Creatinine-based formula (MDRD) 24 mL/min/1.73m2 >60 L [facility] ID Date Data Source [id number] 10/11/2020 06:47:[address] [facility] Value Range Interpretation Code Description Data Jazmín rce(s) Supporting Document(s) Troponin T.cardiac [Mass/volume] in Serum or Plasma 0.02 ng/mL <0.01 [facility] ID Date Data Source [id number] 10/11/2020 06:56:27 PM EST [facility] Name Value Range Interpretation Code Description Data Jazmín rce(s) Supporting Document(s) Lipase [Enzymatic activity/volume] in Serum or Plasma 1966 U/L 13-6 0 H [facility] Confirmed ID Date Data Source [id number] 10/11/2020 09:41:08 PM EST [facility] Name Value Range Interpretation Code Description Data Jazmín rce(s) Supporting Document(s) Magnesium [Mass/volume] in Serum or Plasma 1.9 mg/dL 1.6-2.4 [facility] ID Date Data Source [id number] 10/11/2020 09:41:08 PM [facility] Name Value Range Interpretation Code Description Data Jazmín rce(s) Supporting Document(s) Triglyceride [Mass/volume] in Serum or Plasma 55 mg/dL <150 [facility] ID Date Data Source [id number] 10/11/2020 09:41:08 PM [facility] Name Value Range Interpretation Code Description Data Jazmín rce(s) Supporting Document(s) Phosphate [Mass/volume] in Serum or Plasma 4.5 mg/dL 2.5-4.5 [facility] ID Date Data Source [id number] 10/11/2020 02:08:00 PM EST [facility] Name Value Range Interpretation Code Description Data Jazmín rce(s) Supporting Document(s) SARS coronavirus 2 RNA [Presence] in Res piratory specimen by MATHEW with probe detection NEGATIVE [facility] This lab was ordered by [facility] a nd reported by [facility]. Procedure Social History Code Duration Value Status Description Data Source(s ) Smoking 04/26/2021 12:00:00 AM EDT Ex-smoker (finding) complet ed Ex-smoker (finding) [facility] [facility] Smoking 04/21/2021 12:00:00 AM EDT - 08/14/2009 12:00:00 AM EST Patient is a former smoker completed Patient is a former smoker [facility] ([facility]) Alcohol intake 04/09/2021 12:00:00 AM EDT Ex-drinker (finding) comp leted Ex- drinker (finding) [facility] Alcohol intake 04/05/2021 12:00:00 AM EDT Current drinker of al cohol (finding) completed Current drinker of alcohol (finding) [facility] Smoking 01/20/2021 12:00:00 AM EDT Ex-smoker (finding) complet ed Ex-smoker (finding) [place] ([facility]) Alcohol intake 12/30/2020 12:00:00 AM EDT Ex-drinker (finding) comp leted Ex- drinker (finding) [facility] Tobacco use and exposure 12/30/2020 12:00:00 AM EDT Never used co mpleted Never used [facility] Cigarette pack-years 12/30/2020 12:00:00 AM EDT UNK completed [facility] Cigarettes smoked current (pack per day) - Reported 12/31/19 12:00:00 AM EDT UNK completed [facility] Smoking 12/30/2020 12:00:00 AM EDT Former smoker completed Former smoker [facility] Smoking 12/24/2020 12:00:00 AM EDT Ex-smoker (finding) complet ed Ex-smoker (finding) [place] ([facility]) Alcohol intake 11/26/2020 12:00:00 AM EDT Ex-drinker (finding) comp leted Ex- drinker (finding) [facility] 11/25/2020 12:39:35 PM EDT Former Smoker completed Former Smoker [facility] 11/25/2020 12:39:35 PM EDT Cigarettes completed Cigarette s [facility] 11/25/2020 12:39:35 PM EDT Former Smoker completed Former Smoker [facility] 11/25/2020 12:39:35 PM EDT [facility]igarettes [facility] 11/25/2020 12:39:00 PM EDT Ex-smoker (finding) complet ed Ex-smoker (finding) [facility] Smoking 11/25/2020 12:39:00 PM EDT Ex-smoker (finding) complet ed [facility] Sm[facility] 10/27/2020 12:00:00 AM EDT Never smoked tobacco (findi ng) completed Never smoked tobacco (finding) [place] [facility] Alcohol intake 10/12/2020 12:00:00 AM EST Ex-drinker (finding) comp leted Ex- drinker (finding) [facility] Smoking 09/17/2020 12:00:00 AM EST Never smoked tobacco (findi ng) completed Never smoked tobacco (finding) [place] ([facility]) Smoking 05/12/2020 12:00:00 AM EDT Ex-smoker (finding) complet ed Ex-smoker (finding) [place] ([facility]) Vital Signs ID Date Data Source UNK Name Value Range Interpretation Code Description Data Source(s) Systolic blood pressure 140 mm[Hg] 140 mm[Hg] [facility] ([facility]) Diastolic blood pressure 60 mm[Hg] 60 mm[Hg] [place] ([facility]) Systolic blood pressure 144 mm[Hg] 144 mm[Hg] [facility] ([facility]) Diastolic blood pressure 66 mm[Hg] 66 mm[Hg] [place] ([facility]) Heart rate 75 /min 75 /min [place] ([facility]) Heart rate rhythm 1 1 [place] ([facility]) Respiratory rate 18 /min 18 /min [place] ([facility]) Oxygen saturation in Arterial blood by Pulse oximetry 98 % 98 % [place] ([facility]) Body temperature 97.2 [degF] 97.2 [degF] [facility] ([facility]) Body height 66 [in_i] 66 [in_i] [facility] [facility] Body weight 178 [lb_av] 178 [lb_av] [place] [facility] Body mass index (BMI) [Ratio] 28.7 kg/m2 28.7 k g/m2 [place] ([facility]) Body surface area Derived from formula 1.90 m2 1.90 m2 [place] ([facility]) PhenX - pain, abdominal - type and intensity protocol 0 0 [place] ([facility]) Body temperature 95.9 [degF] 95.9 [degF] [facility] ([facility]) Systolic blood pressure 147 mm[Hg] 147 mm[Hg] [facility] Diastolic blood pressure 66 mm[Hg] 66 mm[Hg] [facility] Heart rate 82 /min 82 /min [facility] Respiratory rate 16 /min 16 /min [facility] Oxygen saturation in Arterial blood by Pulse oximetry 99 % 99 % [facility] Body temperature 36.44 Lucia 36.44 Lucia [facility] Body height 168.9 cm 168.9 cm [facility] Body weight 82 kg 82 kg [facility] Body mass index (BMI) [Ratio] 28.74 kg/m2 28.74 kg/m2 [facility] Systolic blood pressure 152 mm[Hg] 152 mm[Hg] [facility] Diastolic blood pressure 69 mm[Hg] 69 mm[Hg] [facility] Heart rate 66 /min 66 /min [facility] Body height 168.9 cm 168.9 cm [facility] Body weight 81.965 kg 81.965 kg [facility] Body mass index (BMI) [Ratio] 28.73 kg/m2 28.73 kg/m2 [facility] Oxygen saturation in Arterial blood by Pulse oximetry 98 % 98 % [facility] Diastolic blood pressure 90 mm[Hg] 90 mm[Hg] [facility] ([facility]) Systolic blood pressure 190 mm[Hg] 190 mm[Hg] M [place] ([facility]) Body temperature 96.8 [degF] 96.8 [degF] [facility] ([facility]) Heart rate 78 /min 78 /min [facility] ([facility] Body height 68 [in_i] 68 [in_i] [facility] ([facility] 5'8" Body weight 83.009 kg 83.009 kg [facility] ([facility] Body weight 183.00 [lb_av] 183.00 [lb_av] [facility] [facility] ([facility]) Body mass index (BMI) [Ratio] 27.8 kg/m2 27.8 k g/m2 [facility] ([facility]) Systolic blood pressure 170 mm[Hg] 170 mm[Hg] M [place] ([facility]) Diastolic blood pressure 66 mm[Hg] 66 mm[Hg] [facility] Body temperature 97.7 [degF] 97.7 [degF] [facility] ([facility]) Systolic blood pressure 138 mm[Hg] 138 mm[Hg] [place] ([facility]) Diastolic blood pressure 70 mm[Hg] 70 mm[Hg] [place] ([facility]) Heart rate 65 /min 65 /min [place] ([facility] Heart rate rhythm 1 1 [place] ([facility]) Respiratory rate 18 /min 18 /min [place] ([facility]) Body temperature 96.8 [degF] 96.8 [degF] [place] ([facility]) Body weight 184.5 [lb_av] 184.5 [lb_av] [place] ([facility]) PhenX - pain, abdominal - type and intensity protocol 0 0 [place] ([facility]) Oxygen saturation in Arterial blood by Pulse oximetry 97 % 97 % [place] ([facility]) Inhaled oxygen flow rate 0 L/min 0 L/min [place] ([facility]) Inhaled oxygen concentration 21 % 21 % [place] ([facility]) Heart rate 77 /min 77 /min [facility] ([facility] Body temperature 98.9 [degF] 98.9 [degF] [facility] ([facility]) Body height 68 [in_i] 68 [in_i] [facility] ([facility] 5'8" Body weight 183.31 [lb_av] 183.31 [lb_av] [facility] T ([facility]) Body weight 83.148 kg 83.148 kg [facility] ([facility] Oxygen saturation in Arterial blood by Pulse oximetry 97 % 97 % [facility] Body mass index (BMI) [Ratio] 27.9 kg/m2 27.9 k g/m2 [facility] ([facility]) Systolic blood pressure 140 mm[Hg] 140 mm[Hg] [place] ([facility]) Diastolic blood pressure 58 mm[Hg] 58 mm[Hg] [place] [facility] Heart rate 64 /min 64 /min [place] ([facility] Heart rate rhythm 1 1 [place] ([facility]) Respiratory rate 18 /min 18 /min [place] ([facility]) Body temperature 98 [degF] 98 [degF] [place] ([facility]) Body weight 177 [lb_av] 177 [lb_av] [place] ([facility]) PhenX - pain, abdominal - type and intensity protocol 0 0 [place] ([facility]) Oxygen saturation in Arterial blood by Pulse oximetry 97 % 97 % [place] ([facility]) Inhaled oxygen flow rate 0 L/min 0 L/min [place] ([facility]) Inhaled oxygen concentration 21 % 21 % [place] ([facility]) Body height 167.64 cm 167.64 cm [facility] Body weight 83.57 kg 83.57 kg [facility] Body temperature 98.2 [degF] 98.2 [degF] [facility] Heart rate 78 /min 78 /min [facility] Oxygen saturation in Arterial blood by Pulse oximetry 98 % 98 % [facility] Systolic blood pressure 148 mm[Hg] 148 mm[Hg] [facility] Diastolic blood pressure 60 mm[Hg] 60 mm[Hg] [facility] Body mass index (BMI) [Ratio] 29.7 kg/m2 29.7 k g/m2 [facility] Body height 167.64 cm 167.64 cm [facility] Body weight 83.57 kg 83.57 kg [facility] Body temperature 98.2 [degF] 98.2 [degF] [facility] Heart rate 78 /min 78 /min [facility] Oxygen saturation in Arterial blood by Pulse oximetry 98 % 98 % [facility] Systolic blood pressure 148 mm[Hg] 148 mm[Hg] [facility] Diastolic blood pressure 60 mm[Hg] 60 mm[Hg] [facility] Body mass index (BMI) [Ratio] 29.7 kg/m2 29.7 k g/m2 [facility] Systolic blood pressure 144 mm[Hg] 144 mm[Hg] [facility] ([facility]) Diastolic blood pressure 56 mm[Hg] 56 mm[Hg] [place] ([facility]) PhenX - pain, abdominal - type and intensity protocol 0 0 [place] ([facility]) Oxygen saturation in Arterial blood by Pulse oximetry 98 % 98 % [place] ([facility]) Inhaled oxygen flow rate 0 L/min 0 L/min [place] ([facility]) Inhaled oxygen concentration 21 % 21 % [place] ([facility]) Systolic blood pressure 158 mm[Hg] 158 mm[Hg] [place] ([facility]) Diastolic blood pressure 60 mm[Hg] 60 mm[Hg] [place] ([facility]) Heart rate 60 /min 60 /min [place] ([facility] Respiratory rate 18 /min 18 /min [place] ([facility]) Body temperature 9.1 [degF] 9.1 [degF] [place] [facility] Body weight 188 [lb_av] 188 [lb_av] [facility] [facility] Heart rate 74 /min 74 /min [place] ([facility] Oxygen saturation in Arterial blood by Pulse oximetry 97 % 97 % [place] ([facility]) PhenX - pain, abdominal - type and intensity protocol 0 0 [place] ([facility]) unable to obtain vitals due to Covid 19 pandmeic. PhenX - pain, abdominal - type and intensity protocol 0 0 [place] ([facility]) Unable to obtain all vitals due to covid 19 pandemic ID Date Data Source [id number] 01/01/2021 11:47:06 AM T [facility] Name Value Range Interpretation Code Description Data Source(s) WEIGHT RECORDED 178 lb 178 lb [facility] Body height Measured 68 in 68 in [facility] ID Date Data Source [id number] 12/03/2020 02:16:13 PM T [facility] Name Value Range Interpretation Code Description Data Source(s) WEIGHT RECORDED 183.4 lb 183.4 lb [facility] Body height Measured 69 in 69 in [facility] ID Date Data Source [id number] 10/17/2020 10:41:58 AM EST [facility] Name Value Range Interpretation Code Description Data Source(s) WEIGHT RECORDED 198.6 lb 198.6 lb [facility] WEIGHT RECORDED 192.2 lb 192.2 lb [facility] WEIGHT RECORDED 198.41 lb 198.41 lb [facility] Body height Measured 67 in 67 in [facility] TRANSFER FROM [facility] Patient Treatment Plan of Care Planned Activity Planned Date Details Description Data Source (s) Elvia Murri[place] 100 UNIT/ML Subcutaneous Solution Pen -injector 04/26/2021 12:00:00 AM EDT [place] [facility] One[facility] Ultra Mini w/Device Kit 04/26/2021 12:00:00 AM EDT [place] [facility] One[facility] Ultra In Vitro Strip 04/26/2021 12:00:00 AM EDT [place] ([facility]) OneTouch Delica Lancets 30G Miscellaneous 04/26/2021 12:00:00 AM ED T [place] ([facility]) normal saline flush 0.9 % injection 3 mL 04/09/2021 10:00:00 PM EDT [facility] Magnesium Chloride 0.57753 MEQ/ML / Pota ssium Chloride 0.0497 MEQ/ML / Sodium Acetate 0.0163 MEQ/ML / Sodium Chloride 0.0899 MEQ/ML / Sodium gluconate 5.02 MG/ML Injectable Solution [Normosol-R] 04/09/2021 08:00:00 PM EDT [facility] Albuterol 0.833 MG/ML / Ipratropium [place] 0.167 MG/M L Inhalant Solution 04/09/2021 08:00:00 PM EDT [facility] 10 ML Atropine Sulfate 0.1 MG/ML Prefilled Syringe 04/09/2021 06 :47:36 PM EDT [facility] fentaNYL Citrate (PF) (SUBLIMAZE) injection 25 mcg 04/09/2021 06 :47:36 PM EDT [facility] ondansetron (ZOFRAN) injection 4 mg 04/09/2021 06:47:36 PM EDT [facility] Albuterol 0.83 MG/ML Inhalant Solution 04/09/2021 06:47:36 PM EDT [facility] Racepinephrine 22.5 MG/ML Inhalant Solution 04/09/2021 06:47:36 PM EDT [facility] labetalol (NORMODYNE,TRANDATE) injection 5 mg 04/09/2021 06:47:36 P M EDT [facility] Hydralazine Hydrochloride 20 MG/ML Injectable Solution 04/09/2021 06:47:[address] [facility] HYDROmorphone (DILAUDID) injection 0.5 mg 04/09/2021 06:47:36 PM ED T [facility] carvedilol 25 MG Oral Tablet 03/01/2021 12:00:00 AM EDT [place] ([facility]) ezetimibe 10 MG Oral Tablet 01/29/2021 12:00:00 AM EDT [place] [facility] Basaglar KwikPen 100 UNIT/ML Subcutaneous Solution Pen -injector 12/24/2020 12:00:00 AM EDT [place] ([facility]) Nitroglycerin 0.4 MG Sublingual Tablet [Nitrostat] 11/16/2020 12 :00:00 AM EDT [place] ([facility]) Nitroglycerin 0.4 MG Sublingual Tablet 10/21/2020 12:00:00 AM [facility] Levofloxacin 750 MG Oral Tablet 10/19/2020 12:00:00 AM [facility] irbesartan 300 MG Oral Tablet 10/19/2020 12:00:00 AM [facility] carvedilol 25 MG Oral Tablet 10/18/2020 12:00:00 AM [facility] carvedilol 3.125 MG Oral Tablet 10/18/2020 12:00:00 AM [facility] Vancomycin 125 MG Oral Capsule 10/18/2020 12:00:00 AM [facility] Saccharomyces boulardii 250 MG Oral Capsule 10/18/2020 12:00:00 AM [facility] Hydralazine Hydrochloride 25 MG Oral Tablet 10/18/2020 12:00:00 AM [facility] POLYETHYLENE GLYCOL 3350 142 MG/ML Oral Solution 10/15/2020 01:20:2 1 PM [facility] Aspirin 81 MG Chewable Tablet 10/12/2020 09:00:00 AM [facility] heparin (porcine) 5000 UNIT/ML injection 5,000 Units 021 09:00:00 AM [facility] Nitroglycerin 0.4 MG Sublingual Tablet 10/11/2020 10:12:14 PM [facility] Glucagon 1 MG Injection 10/11/2020 08:55:55 PM [facility] Glucose 0.417 MG/MG Oral Gel 10/11/2020 08:55:55 PM [facility] dextrose 50 % IV solution 25 mL 10/11/2020 08:55:54 PM [facility] pantoprazole 40 MG Delayed Release Oral Tablet 09/17/2020 12:00:00 AM [facility] [place] ([facility]) carvedilol 25 MG Oral Tablet 09/17/2020 12:00:00 AM [facility] [place] ([facility]) Nitroglycerin 0.4 MG Sublingual Tablet 09/17/2020 12:00:00 AM [facility] ([facility]) OneTouch Ultra In Vitro Strip 08/28/2020 12:00:00 AM [facility] [place] ([facility]) ezetimibe 10 MG Oral Tablet 08/04/2020 12:00:00 AM EST [place] ([facility]) Basaglar KwikPen 100 UNIT/ML Subcutaneous Solution Pen -injector 05/12/2020 12:00:00 AM EDT [place] [facility] carvedilol 25 MG Oral Tablet 04/27/2020 12:00:00 AM EDT [place] ([facility]) pantoprazole 40 MG Delayed Release Oral Tablet 04/27/2020 12:00:00 AM ED [place] ([facility]) Basaglar KwikPen 100 UNIT/ML Subcutaneous Solution Pen -injector 04/03/2020 12:00:00 AM EDT [place] ([facility]) OneTouch Ultra In Vitro Strip 03/18/2020 12:00:00 AM ED [place] [facility] Nitroglycerin 0.4 MG Sublingual Tablet [Nitrostat] 02/08/2020 12 :00:00 AM ED [place] ([facility]) carvedilol 25 MG Oral Tablet 11/08/2019 12:00:00 AM EDT [place] [facility] pantoprazole 40 MG Delayed Release Oral Tablet 11/08/2019 12:00:00 AM EDT [place] ([facility]) Nystatin 100 UNT/MG Topical Powder 01/10/2019 12:00:00 AM EDT [place] ([facility]) Sure Comfort Pen [place] 31G X 8 MM Miscellaneous 03/10/2017 12: 00:00 AM EDT [place] ([facility]) Ascorbic Acid 60 MG / Beta Carotene 5000 UNT / Copper Sulfate 40 MG / dl-alpha tocopheryl acetate 30 UNT / Sodium Selenite 0.04 MG / Zinc Oxide 40 MG Oral Tablet 06/10/2016 12:00:00 AM EDT [facility] Aspirin 81 MG Delayed Release Oral Tablet 06/09/2016 12:00:00 AM ED T [facility] 200 ACTUAT Albuterol 0.09 MG/ACTUAT Metered Dose Inhal er [ProAir] 05/29/2015 12:00:00 AM EDT [place] [facility] albuterol (PROVENTIL HFA;VENTOLIN HFA) 108 (90 Base) MCG/ACT inhale r [facility] Insulin Glargine 100 UNT/ML Injectable Solution [facility] Losartan Potassium 25 MG Oral Tablet [facility] carvedilol 25 MG Oral Tablet [facility] Hydrochlorothiazide 12.5 MG / Losartan Potassium 100 MG Oral Tablet [facility]
[2021-06-24 20:19] LABS: BASO # 0.1 10^3/uL (0.0-0.2); BASO % 0.9 % (0.0-1.0); EOS # 0.2 10^3/uL (0.0-0.5); EOS % 2.2 % (0.0-3.0); HEMATOCRIT 37.5 % (42.0-52.0); HEMOGLOBIN 12.1 g/dl (13.5-17.5); LYMPH # 0.7 10^3/uL (1.5-5.0); LYMPH % 7.2 % (24.0-44.0); MEAN CORPUSCULAR HEMOGLOBIN 33.6 pg (27.0-33.0); MEAN CORPUSCULAR HGB CONC 32.3 g/dl (32.0-36.5); MEAN CORPUSCULAR VOLUME 104.2 fl (80.0-96.0); MONO # 0.8 10^3/uL (0.0-0.8); MONO % 8.5 % (2.0-8.0); NEUTROPHILS # 7.5 10^3/uL (1.5-8.5); NEUTROPHILS % 80.8 % (36.0-66.0); PLATELET COUNT, AUTOMATED 193 10^3/uL (150-450); WHITE BLOOD COUNT 9.3 10^3/uL (4.0-10.0)
[2021-06-24] MEDS ORDERED: **hydrALAZINE HCL** 25 MG TAB PO ONE (20:35)
[2021-06-24] MEDS ORDERED: CARVedilol 12.5 MG TAB PO ONE (20:35)
--- NOTE | 2021-06-24 20:35 | REPVR ---
PROCEDURE INFORMATION: Exam: XR Chest Exam date and time: 06/24/2021 8:05 PM Age: 76 years old Clinical indication: Cough and dyspnea; Additional info: Dyspnea/cough TECHNIQUE: Imaging protocol: XR of the chest. Views: 1 view. COMPARISON: CT Chest without contrast 01/10/2021 1:32 PM FINDINGS: Tubes, catheters and devices: Dual lumen dialysis catheter tip in the right atrium. Lungs: Increased pulmonary vascular congestion consistent with fluid overload. No segmental or lobar infiltrates. Pleural spaces: Bilateral pleural effusions, left greater than right. Heart/Mediastinum: Unremarkable. No cardiomegaly. Bones/joints: Status post sternotomy. IMPRESSION: 1. Bilateral pleural effusions, left greater than right. 2. Increased pulmonary vascular congestion consistent with fluid overload. Electronically signed by: Reyes Larry On 06/24/2021 20:34:43 PM
[2021-06-24 20:42] LABS: ALBUMIN 3.5 GM/DL (3.2-5.2); ALT/SGPT 24 U/L (12-78); BILIRUBIN,DIRECT 0.2 MG/DL (0.0-0.2); BILIRUBIN,TOTAL 0.8 MG/DL (0.2-1.0); BLOOD UREA NITROGEN 27 MG/DL (7-18); CALCIUM LEVEL 8.6 MG/DL (8.8-10.2); CARBON DIOXIDE LEVEL 28 MEQ/L (21-32); CHLORIDE LEVEL 102 MEQ/L (98-107); CK-MB VALUE MASS < 1.0 NG/ML (<3.6); CPK CREATINE PHOSPHOKINASE 169 U/L (39-308); CREATININE FOR GFR 4.56 MG/DL (0.70-1.30); GLOMERULAR FILTRATION RATE 13.5 (>42); GLUCOSE, FASTING 212 MG/DL (70-100); MB/CK RELATIVE INDEX 0.59 (< OR =4); POTASSIUM SERUM 4.2 MEQ/L (3.5-5.1); SODIUM LEVEL 138 MEQ/L (136-145); TOTAL PROTEIN 6.9 GM/DL (6.4-8.2); TROPONIN I 0.03 NG/ML (< 0.10)
[2021-06-24] MEDS ORDERED: IRBESARTAN 150MG TAB PO ONE (21:00)
--- OUTSIDE RECORDS SUMMARY | 2021-06-24 21:10 | CCD ---
Author Author [facility] Organization [facility] Address Unknown Phone Unavailable Care Team Providers Care Clinic Lead Name Role Phone Patricia ANDRADE Unavailable Unavailable Mateusz CHAPIN Unavailable Unavailable Erik Robert SOLE LEATHER CUTTING MACHINE OPERATOR Unavailable Unavailable LoryErik berrios SOLE LEATHER CUTTING MACHINE OPERATOR Unavailable Unavailable Lory, Erik Amin SOLE LEATHER CUTTING MACHINE OPERATOR Unavailable Unavailable Erik Robert SOLE LEATHER CUTTING MACHINE OPERATOR Unavailable Unavailable Erik Robert SOLE LEATHER CUTTING MACHINE OPERATOR Unavailable Unavailable Lory, A Eloisa SOLE LEATHER CUTTING MACHINE OPERATOR Unavailable Unavailable O'Brien, A Eloisa SOLE LEATHER CUTTING MACHINE OPERATOR Unavailable Unavailable O'Brien, A Eloisa SOLE LEATHER CUTTING MACHINE OPERATOR Unavailable Unavailable O'Brien, A Eloisa SOLE LEATHER CUTTING MACHINE OPERATOR Unavailable Unavailable Lory, A Eloisa SOLE LEATHER CUTTING MACHINE OPERATOR Unavailable Unavailable O'Brien, A Eloisa SOLE LEATHER CUTTING MACHINE OPERATOR Unavailable Unavailable Lory, A Eloisa SOLE LEATHER CUTTING MACHINE OPERATOR Unavailable Unavailable O'Brien, A Eloisa SOLE LEATHER CUTTING MACHINE OPERATOR Unavailable Unavailable O'Brien, A Eloisa SOLE LEATHER CUTTING MACHINE OPERATOR Unavailable Unavailable Lory, A Eloisa SOLE LEATHER CUTTING MACHINE OPERATOR Unavailable Unavailable Lory, A Eloisa SOLE LEATHER CUTTING MACHINE OPERATOR Unavailable Unavailable Lory, A Eloisa SOLE LEATHER CUTTING MACHINE OPERATOR Unavailable Unavailable O'Brien, A Eloisa SOLE LEATHER CUTTING MACHINE OPERATOR Unavailable Unavailable Lory, A Eloisa SOLE LEATHER CUTTING MACHINE OPERATOR Unavailable Unavailable Lory, A Eloisa SOLE LEATHER CUTTING MACHINE OPERATOR Unavailable Unavailable Lory, A Eloisa SOLE LEATHER CUTTING MACHINE OPERATOR Unavailable Unavailable O'Brien, A Eloisa SOLE LEATHER CUTTING MACHINE OPERATOR Unavailable Unavailable O'Brien, A Eloisa SOLE LEATHER CUTTING MACHINE OPERATOR Unavailable Unavailable O'Brien, A Eloisa SOLE LEATHER CUTTING MACHINE OPERATOR Unavailable Unavailable O'Brien, A Eloisa SOLE LEATHER CUTTING MACHINE OPERATOR Unavailable Unavailable O'Brien, A Eloisa SOLE LEATHER CUTTING MACHINE OPERATOR Unavailable Unavailable Geurtsen, Aart Unavailable Unavailable Geurtsen, [...] Anita Unavailable Unavailable Hernandez, Anita Unavailable Unavailable Heranndez, Anita Unavailable Unavailable Hernandez, Anita Unavailable Unavailable [...] Unavailable Unavailable Paco, Dutch Goff MD Unavailable [email or web address] Dutch Chilel MD Unavailable [email or web address] Paco, Dutch Goff MD Unavailable [email or web address] Sherman, A Alexandria PA-C Unavailable Unavailable Sherman, [...] Unavailable Sherman, A Alexandria PA-C Unavailable Unavailable Nazareth, J Anne SOLE LEATHER CUTTING MACHINE OPERATOR Unavailable Unavailable Nazareth, J Anne SOLE LEATHER CUTTING MACHINE OPERATOR Unavailable Unavailable Nazareth, J Anne SOLE LEATHER CUTTING MACHINE OPERATOR Unavailable Unavailable Nazareth, J Anne SOLE LEATHER CUTTING MACHINE OPERATOR Unavailable Unavailable Nazareth, J Anne SOLE LEATHER CUTTING MACHINE OPERATOR Unavailable Unavailable Nazareth, J Anne SOLE LEATHER CUTTING MACHINE OPERATOR Unavailable Unavailable Nazareth, J Anne SOLE LEATHER CUTTING MACHINE OPERATOR Unavailable Unavailable MOEHLE, C LESLEY PA Unavailable [...] Unavailable Kenzie, Elsa Mercedes MD Unavailable Unavailable Elas Espino MD Unavailable Unavailable Kenzie, Elsa Mercedes [...] SEMEL, Erik SIMMONS MD Unavailable Unavailable SEMEL, Eirk SIMMONS MD Unavailable Unavailable SEMEL, Erik SIMMONS MD Unavailable Unavailable SEMEL, Erik SIMMONS MD Unavailable Unavailable SEMEL, Erik SIMMONS MD Unavailable Unavailable SEMEL, Erik SIMMONS MD Unavailable Unavailable SEMEL, Erik SIMMONS MD Unavailable Unavailable SEMEL, Erik SIMMONS MD Unavailable Unavailable SEMEL, Erik SIMMONS MD Unavailable Unavailable SEMEL, Erik SIMMONS MD Unavailable Unavailable SEMEL, Erik SIMMONS MD Unavailable Unavailable SEMEL, Erik SMIMONS MD Unavailable Unavailable SEMEL, Erik SIMMONS MD [...] Erik SIMMONS MD Unavailable Unavailable SEMEL, Erik SMIMONS MD Unavailable Unavailable SEMEL, Erki SIMMONS MD Unavailable Unavailable SEMEL, Erik SIMMONS [...] ANAID ZACARIAS MD Unavailable Unavailable Sanchez Baltazar SOLE LEATHER CUTTING MACHINE OPERATOR Unavailable Unavailable Sanchez Balatzar SOLE LEATHER CUTTING MACHINE OPERATOR Unavailable Unavailable Sanchez Baltazar SOLE LEATHER CUTTING MACHINE OPERATOR Unavailable Unavailable Sanchez Baltazar SOLE LEATHER CUTTING MACHINE OPERATOR Unavailable Unavailable Surinder De Leon MD Unavailable Unavailable Moises, Surinder Calixto MD Unavailable Unavailable Crowley, Surinder Calixto MD Unavailable Unavailable Moises, Surinder Calixto MD Unavailable Unavailable Crowley, Surinder Calixto MD Unavailable Unavailable MoisesSurinder MD Unavailable Unavailable Crowley, Surinder Calixto MD Unavailable Unavailable CrowleySurinder MD Unavailable Unavailable Crowley, Surinder Calixto MD Unavailable Unavailable Crowley, Surinder Calixto MD Unavailable Unavailable CrowleySurinder MD Unavailable Unavailable MoisesSurinder MD Unavailable Unavailable CrowleySurinder MD Unavailable Unavailable MoisesSurinder MD Unavailable Unavailable CrowleySurinder MD Unavailable Unavailable CrowleySurinder MD Unavailable Unavailable Crowley, Surinder Calixto MD Unavailable Unavailable Crowley, Surinder Calixto MD Unavailable Unavailable MoisesSurinder MD Unavailable Unavailable MoisesSurinder MD Unavailable Unavailable MoisesSurinder MD Unavailable Unavailable Moises, Surinder Calixto MD Unavailable Unavailable CrowleySurinder MD Unavailable Unavailable Crowley, Surinder Calixto MD Unavailable Unavailable Moises, Surinder Calixto MD Unavailable Unavailable Crowley, Surinder Calixto MD Unavailable Unavailable Crowley, Surinder Calixto MD Unavailable Unavailable MoisesSurinder MD Unavailable Unavailable MoisesSurinder MD Unavailable Unavailable Crowley, Suirnder Calixto MD Unavailable Unavailable Moises, Surinder Calixto MD Unavailable Unavailable Crowley, Surinder Calixto MD Unavailable Unavailable Crowley, Surinder Calixto MD Unavailable Unavailable Moises, Surinder Calixto MD Unavailable Unavailable Crowley, Surinder Calixto MD Unavailable Unavailable Crowley, Surinder Calixto MD Unavailable Unavailable Crowley, Surinder Calixto MD Unavailable Unavailable Moises, Surinder Calixto MD Unavailable Unavailable Crowley, Surinder Calixto MD Unavailable Unavailable Crowley, Surinder Calixto MD Unavailable Unavailable Crowley, Surinder Calixto MD Unavailable Unavailable Crowley, Surinder Calixto MD Unavailable Unavailable Crowley, Surinder Calixto MD Unavailable Unavailable Crowley, Surinder Calixto MD Unavailable Unavailable Moises, Surinder Calixto MD Unavailable Unavailable Moises, Surinder Calixto MD Unavailable Unavailable Crowley, Surinder Calixto MD Unavailable Unavailable Moises, Surinder Calixto MD Unavailable Unavailable Crowley, Surinder Calixto MD Unavailable Unavailable Moises, Surinder Calixto MD Unavailable Unavailable Crowley, Suridner Calixto MD Unavailable Unavailable Moises, Surinder Calixto MD Unavailable Unavailable Moises, Surinder Calixto MD Unavailable Unavailable Crowley, Surinder Calixto MD Unavailable Unavailable Crowley, Surinder Calixto MD Unavailable Unavailable Moises, Surinder Calixto MD Unavailable Unavailable Crowley, Surinder Calixto MD Unavailable Unavailable Crowley, Surinder Calixto MD Unavailable Unavailable Crowley, Surinder Calixto MD Unavailable Unavailable Moises, Surinder Calixto MD Unavailable Unavailable Crowley, Surinder Calixto MD Unavailable Unavailable Crowley, Surinder Calixto MD Unavailable Unavailable Crowley, Surinder Calixto MD Unavailable Unavailable SEMEL, Erik [...] is protected by Article 27-F of the [facility] Public Health law. If you continue you may have access to information: Regarding HIV / AIDS; Provided by facilities licensed or operated by the [facility] Office of Mental Health; or Provided by the [facility] Office for People With Developmental Disabilities. If such information is present, then the following [facility] mandated warning applies: This information has been [...] law may result in a fine or [place] health care facility sentence or both. A general authorization for the release of medical or other information is NOT sufficient authorization for further disc losure. Advance Directives Directive Description Electrical Design Technologist Supermarket Manager Status Observation Descr iption Data Source(s) packet [...] [facility] Drug allergy Nnqwhat-QWL-PuG Reductase Inhibitor Stat ins-HMG-CoA Reductase Inhibitor myalgias [facility] Propensity to adverse reactions ASPIRIN Aluminum aspirin Active [facility] Adverse Reaction Adverse Reaction clopidogrel [facility] ([facility]) Drug allergy CLOPIDOGREL BISULFATE CLOPIDOGREL BISULFATE [facility] Family History Family Member Name Family Member Gender Family Member Status Date o f Status Description Data Source(s) Unknown Condition [facility] Unknown Condition [facility] Unknown [facility] Unknown [facility] Unknown [facility] Unknown [facility] Unknown [facility] Unknown [facility] Encounters Encounter Providers Location Date Indications Data Source(s ) Outpatient Attender: Durga De Leon MDReferrer: Carolyn May 06/07/2021 01:07:00 PM EDT - 06/07/2021 01:52:00 PM EDT [facility] Patient discharged. <td ID="encounterTypeDescriptionID0">Kizzy rt Update</td><td>Eloisa Robert NP</td><td></td><td>05/24/2021</td><td>7:51AM</td><td>11:59PM</td><td></td>Unkno Attender: Eloisa Robert NP 05/24/2021 07:5 1:00 AM EDT - 05/24/2021 11:59:00 PM EDT [facility] ([facility]) Outpatient Attender: Mago Espino MD 1 07:30:46 PM EDT - 05/15/2021 08:57:14 PM EDT [facility] ([facility]) <td ID="encounterTypeDescriptionID0">Chr onic Disease Follow-up</td><td>Eloisa Robert NP</td><td>[facility]</td><td>04/26/2021</td><td>9:44AM</td><td>10:54AM</td><td><content ID="encounterDiagnosisID0-0">Diabetes Mellitus Diabetic Peripheral Neuropathy</content>, <content ID="encounterDiagnosisID0-1">Coronary Artery Disease</content>, <content ID="encounterDiagnosisID0-2">Congestive Heart Failure Diastolic Chronic</content>, <content ID="encounterDiagnosisID0- 3">Chronic Renal Failure</content>, <content ID="encounterDiagnosisID0- 4">Hyperlipidemia</content>, <content ID="encounterDiagnosisID0-5">Hypertension (Systemic)</content>, <content ID="encounterDiagnosisID0-6">Myelodysplastic Syndrome</content>, <content ID="encounterDiagnosisID0-7">Valvular Heart Disease</content></td>Outpatient Attender: Eloisa Robert NP [facility] 04/26/2021 09:44:00 AM EDT - 04/26/2021 10:54:47 [...] PA-C Main Office 03/2021 10:00:00 AM EDT [facility] ([facility]) Unknown<td ID="encounterTypeDescriptionI D0">Chart Update</td><td>Eloisa Robert NP</td><td></td><td>04/16/2021</td><td>8:58PM</td><td>11:59PM</td><td></td> Attender: Eloisa Robert NP 04/16/2021 08:58:00 PM EDT - 04/16/2021 11:59:00 PM EDT [facility] Attender: IRIS PERDOMO MDReferrer: IRIS AMBROCIO MD [facility]PAT 04/05/2021 09:39:45 AM EDT - 04/05/2021 10:38:11 AM EDT [facility] Outpatient Referrer: IRIS PERDOMO MD MOB-MOB.PAT 03/15 08:45:37 AM EDT - 04/05/2021 08:45:45 AM EDT [facility] SDC Attender: IRIS PERDOMO MDA dmitter: IRIS PERDOMO MDReferrer: IRIS PERDOMO MD ES1-OR 03/03/2021 10:42:36 AM EDT - 04/09/2021 06:55:00 PM EDT [facility] Patient discharged. Outpatient Attender: IRIS PERDOMO MD Main Office 02/24/2021 09:45:0 0 AM EDT [facility] ([facility]) Outpatient Attender: Norm Trejo MDAttender: JASMINA BLANCHARD MD 01/27/2021 12:00:00 AM EDT [facility] Outpatient<td ID="encounterTypeDescripti onID0">Hospital Follow- up</td><td>Anne Horvath NP</td><td>[facility]</td><td>01/20/2021</td><td>9:00AM</td><td>10:09AM</td><td><content ID="encounterDiagnosisID0-0">Myelodysplastic Syndrome</content>, <content ID="encounterDiagnosisID0-1">Hypertension (Systemic)</content>, <content ID="encounterDiagnosisID0-2">Diabetes Mellitus</content>, <content ID="encounterDiagnosisID0-3">Chronic Renal Failure</content></td> Attender: Anne Horvath NP [facility] 01/20/2021 09:00:00 AM EDT - 01/20/2021 10:09:21 AM EDT Myelodysplastic SyndromeChronic Renal Fa ilureHypertension (Systemic)Diabetes Mellitus [place] ([facility]) Myelodysplastic Syndrome Chronic Renal Failure Hypertension (Systemic) Diabetes Mellitus Unknown<td ID="encounterTypeDescriptionI D0">Chart Update</td><td>Carolyn May DO</td><td></td><td>01/16/2021</td><td>8:47AM</td><td>11:59PM</td><td></td> Attender: Carolyn May 01/16/2021 08:47:00 AM EDT - 01/16/2021 11:59:00 PM EDT [facility] ([facility]) Unknown<td ID="encounterTypeDescriptionI D0">Chart Update</td><td>Carolyn May DO</td><td></td><td>01/12/2021</td><td>9:12PM</td><td>11:59PM</td><td></td> Attender: Carolyn May 01/12/2021 09:12:00 PM EDT - 01/12/2021 11:59:00 PM EDT [facility] ([facility]) Unknown<td ID="encounterTypeDescriptionI D0">Chart Update</td><td>Erica Baltazar NP</td><td></td><td>01/08/2021</td><td>2:00PM</td><td>11:59PM</td><td></td> Attender: Erica Baltazar NP 01/08/2021 02:00:00 PM EDT - 01/08/2021 11:59:00 PM EDT [facility]) Outpatient Attender: JASMINA BLANCHARD MD [id number] 12/30/2020 12:00:00 AM EDT [facility] <td ID="encounterTypeDescriptionID0">Chr onic Disease Follow-up</td><td>Carolyn Gomez Lalo COYLE</td><td>[facility]</td><td>12/24/2020</td><td>11:04AM</td><td>12:30PM</td><td><content ID="encounterDiagnosisID0-0">Anemia</content>, <content ID="encounterDiagnosisID0-1">Atrial Fibrillation with Rapid Ventricular Response</content>, <content ID="encounterDiagnosisID0-2">Chronic Renal Failure</content>, <content ID="encounterDiagnosisID0-3">Congestive Heart Failure Diastolic Chronic</content>, <content ID="encounterDiagnosisID0- 4">Coronary Artery Disease</content>, <content ID="encounterDiagnosisID0- 5">Diabetes Mellitus</content>, <content ID="encounterDiagnosisID0- 6">Hyperlipidemia</content>, <content ID="encounterDiagnosisID0-7">Hypertension (Systemic)</content>, <content ID="encounterDiagnosisID0-8">Vitamin D Deficiency</content>, <content ID="encounterDiagnosisID0-9">Acute Cholecystitis</content>, <content ID="encounterDiagnosisID0-10">Acute Pancreatitis Due To Gallstones</content>, <content ID="encounterDiagnosisID0- 11">Myelodysplastic Syndrome</content>, <content ID="encounterDiagnosisID0- 12">Assessment of Feeling Weak</content></td>Outpatient Attender: Carolyn May [facility] 12/24/2020 11:04:00 AM EDT - 12/24/2020 12:30:45 PM ED T Assessment of Feeling WeakAcute Pancreatitis Due To GallstonesAcute CholecystitisAtrial Fibrillation with Rapid Ventricular ResponseMyelodysplastic SyndromeCongestive Heart Failure Diastolic ChronicChronic Renal FailureAnemiaVitamin D DeficiencyHypertension (Systemic)HyperlipidemiaCoronary Artery DiseaseDiabetes Mellitus [facility] ([facility]) Assessment of Feeling Weak Acute Pancreatitis Due To Gallstones Acute Cholecystitis Atrial Fibrillation with Rapid Ventricul ar Response Myelodysplastic Syndrome Congestive Heart Failure Diastolic Chron ic Chronic Renal Failure Anemia Vitamin D Deficiency Hypertension (Systemic) Hyperlipidemia Coronary Artery Disease Diabetes Mellitus Outpatient Attender: Carolyn May 12/24/2020 12:00:00 AM EDT [facility] Outpatient Attender: IZABEL MARSHdmitter: IZABEL Barrett rrer: Anita Hernandez 12/15/2020 12:00:00 AM EDT - 12/15/2020 11:59:00 PM EDT Cholecystitis, unspecified [facility] Cholecystitis, unspecified Outpatient Attender: NORY Jacksonr: Anita Hernandez [id number] 12/11/2020 12:00:00 AM EDT [facility] Outpatient Attender: Anita Hernandez [id number] 11/26/2020 12:00:00 AM EDT - 11/26/2020 01:30:09 PM EDT Cholecystitis, unspecified [facility] Cholecystitis, unspecified Outpatient Attender: Durga De Leon MDReferrer: Carolyn May 11/25/2020 12:32:00 PM EDT - 11/25/2020 01:09:00 PM EDT 8 mo f/u - TXT [facility] 8 mo f/u - TXT CONF Patient discharged. <td ID="encounterTypeDescriptionID0">Hos pital Follow-up</td><td>Carolyn May DO</td><td>[facility]</td><td>10/27/2020</td><td>4:02PM</td><td>5:13PM</td><td><content ID="encounterDiagnosisID0-0">Acute Cholecystitis</content>, <content ID="encounterDiagnosisID0-1">Chronic Renal Failure</content>, <content ID="encounterDiagnosisID0-2">Acute Pancreatitis Due To Gallstones</content>, <content ID="encounterDiagnosisID0-3">Congestive Heart Failure Diastolic Chronic</content>, <content ID="encounterDiagnosisID0-4">Clostridium Difficile< /content>, <content ID="encounterDiagnosisID0-5">Atrial Fibrillation with Rapid Ventricular Response</content>, <content ID="encounterDiagnosisID0- 6">Anemia</content>, <content ID="encounterDiagnosisID0-7">Myelodysplastic Syndrome</content></td>Outpatient Attender: Carolyn May [facility] 10/27/2020 04:02:00 PM EDT - 10/27/2020 05:13:15 PM EDT Atrial Fibrillation with Rapid Ventricular ResponseClostridium DifficileAcute Pancreatitis Due To GallstonesAcute CholecystitisMyelodysplastic SyndromeCongestive Heart Failure Diastolic ChronicChronic Renal FailureAnemia [place] ([facility]) Atrial Fibrillation with Rapid Ventricul ar Response Clostridium Difficile Acute Pancreatitis Due To Gallstones Acute Cholecystitis Myelodysplastic Syndrome Congestive Heart Failure Diastolic Chron ic Chronic Renal Failure Anemia Outpatient Attender: QUINN CORONA .Referrer: QUINN Cosby 10/16/2020 12:00:00 AM [facility] Outpatient Referrer: LESLEY ZAIDI 10/12/2020 12:00:0 0 AM [facility] Inpatient Attender: [place] Chilel MDAttigor er: Jordan MorasenAttender: ANAID ZACARIAS MDAdmitter: ANAID ZACARIAS MDReferrer: ANAID ZACARIAS MDConsultant: Anita Hernandez [id number] 10/11/2020 12:00:00 AM EST - 10/18/2020 01:40:00 PM EST Biliary acute pancreatitis without necrosis or infection [facility] Biliary acute pancreatitis without necro sis or infection Patient discharged. Unknown<td ID="encounterTypeDescriptionI D0">Chart Update</td><td>Carolyn May DO</td><td></td><td>10/19/2020</td><td>09/17/2020 4:53PM</td><td>09/17/2020 11:59PM</td><td><content ID="encounterDiagnosisID0-0">Acute Cholecystitis</content>, <content ID="encounterDiagnosisID0-1">Acute Pancreatitis Due To Gallstones</content>, <content ID="encounterDiagnosisID0-2"> Chronic Renal Failure</content>, <content ID="encounterDiagnosisID0- 3">Congestive Heart Failure Diastolic Chronic</content>, <content ID="encounterDiagnosisID0-4">Atrial Fibrillation with Rapid Ventricular Response</content>, <content ID="encounterDiagnosisID0-5">Clostridium Difficile</content></td> Attender: Carolyn May 09/17/2020 04: 53:00 PM EST - 09/17/2020 11:59:00 PM EST Clostridium DifficileAtrial Fibrillation with Rapid Ventricular ResponseAcute Pancreatitis Due To GallstonesAcute CholecystitisCongestive Heart Failure Diastolic ChronicChronic Renal Failure [facility] ([facility]) Clostridium Difficile Atrial Fibrillation with Rapid Ventricul ar Response Acute Pancreatitis Due To Gallstones Acute Cholecystitis Congestive Heart Failure Diastolic Chron ic Chronic Renal Failure Unknown<td ID="encounterTypeDescriptionI D2">Correspondence</td><td>Carolyn May DO</td><td></td><td>09/24/2020</td><td>09/17/2020 11:18AM</td><td>09/17/2020 11:59PM</td><td></td> Attender: Carolyn May 09/17/2020 11:18: 00 AM EST - 09/17/2020 11:59:00 PM EST [facility] ([facility]) Outpatient<td ID="encounterTypeDescripti onID3">Primary Care Telehealth FaceTime</td><td>Carolyn May DO</td><td>[facility]</td><td>09/17/2020</td><td>10:44AM</td><td>11:26AM</td><td><content ID="encounterDiagnosisID3-0">Anemia</content>, <content ID="encounterDiagnosisID3-1">Chronic Renal Failure</content>, <content ID="encounterDiagnosisID3-2">Congestive Heart Failure Diastolic Chronic</content>, <content ID="encounterDiagnosisID3-3">Diabetes Mellitus</content>, <content ID="encounterDiagnosisID3-4">Hyperlipidemia</content>, <content ID="encounterDiagnosisID3-5">Hypertension (Systemic)</content></td> Attender: Carolyn May [facility] 09/17/2020 10:44:00 AM EST - 09/17/2020 11:26:07 AM EST Congestive Heart Failure Diastolic Chron icChronic Renal FailureAnemiaHypertension (Systemic)HyperlipidemiaDiabetes Mellitus [place] ([facility]) Congestive Heart Failure Diastolic Chron ic Chronic Renal Failure Anemia Hypertension (Systemic) Hyperlipidemia Diabetes Mellitus <td ID="encounterTypeDescriptionID1">Kizzy rt Update</td><td>Carolyn May DO</td><td></td><td>10/13/2020</td><td>09/17/2020 8:58AM</td><td>09/17/2020 11:59PM</td><td></td>Unknown Attender: Carolyn May 09/17/2020 08:58:00 AM EST - 09/17/2020 11:59:00 PM EST [facility] ([facility]) Unknown<td ID="encounterTypeDescriptionI D6">Care Management</td><td>Sravanthi Burns RN</td><td></td><td>06/08/2020</td><td>05/12/2020 11:17AM</td><td>05/12/2020 11:59PM</td><td></td> Attender: Sravanthi Burns RN 06/08/2020 11:17:00 AM EDT - 05/12/2020 11:59:00 PM EDT [facility]) Outpatient Attender: Durga Moises MDReferrer: Carolyn May 05/18/2020 03:30:00 PM EDT TXT CONF follow up [facility], TXT CONF follow up Outpatient<td ID="encounterTypeDescripti onID5">Medication Order</td><td>Carolyn May DO</td><td></td><td>08/04/2020</td><td>05/12/2020 4:25PM</td><td>05/12/2020 11:59PM</td><td></td> Attender: Carolyn May 05/12/2020 04:25: 00 PM EDT - 05/12/2020 11:59:00 PM EDT [facility] Outpatient<td ID="encounterTypeDescripti onID7">Primary Care Telehealth FaceTime</td><td>Carolyn Gomez Lalo DO</td><td>[facility]</td><td>05/12/2020</td><td>2:17PM</td><td>2:40PM</td><td><content ID="encounterDiagnosisID7-0">Anemia</content>, <content ID="encounterDiagnosisID7-1">Chronic Renal Failure</content>, <content ID="encounterDiagnosisID7-2">Congestive Heart Failure Diastolic Chronic</content>, <content ID="encounterDiagnosisID7-3">Diabetes Mellitus</content>, <content ID="encounterDiagnosisID7-4">Hypertension (Systemic)</content>, <content ID="encounterDiagnosisID7-5">Myelodysplastic Syndrome</content></td> Attender: Carolyn May [facility] 05/12/2020 02:1 7:00 PM EDT - 05/12/2020 02:40:33 PM EDT Myelodysplastic SyndromeMyelodysplastic SyndromeMyelodysplastic SyndromeCongestive Heart Failure Diastolic ChronicCongestive Heart Failure Diastolic ChronicCongestive Heart Failure Diastolic ChronicChronic Renal FailureChronic Renal FailureChronic Renal FailureAnemiaAnemiaAnemiaHypertension (Systemic)Hypertension (systemic)Hypertension (systemic)Diabetes MellitusDiabetes MellitusDiabetes Mellitus [facility] ([facility]) Myelodysplastic Syndrome Myelodysplastic Syndrome Myelodysplastic Syndrome Congestive [...] PM EDT - 05/12/2020 11:59:00 PM EDT [facility] ([facility]) <td ID="encounterTypeDescriptionID8">Kizzy rt Prep</td><td>Stefany Rees RN</td><td></td><td>05/06/2020</td><td>02/28/2020 11:33AM</td><td>04/03/2020 11:59PM</td><td></td>Unknown Attender: Heather Ramires RN 04/15 11:33:00 AM EDT - 04/03/2020 11:59:00 PM EDT [facility] [facility] ) <td ID="encounterTypeDescriptionID9">Kizzy rt Update</td><td>Carolyn May DO</td><td></td><td>04/27/2020</td><td>02/28/2020 1:48PM</td><td>04/03/2020 11:59PM</td><td></td>Unknown Attender: Carolyn May 04/27/2020 01:48:00 PM EDT - 04/03/2020 11:59:00 PM EDT [facility] ([facility]) Outpatient Attender: Durga De Leon MDReferrer: Eloisa Judd 04/03/2020 01:34:00 PM EDT - 04/03/2020 02:12:00 PM EDT Cataract Clearance -Conf [facility] Cataract Clearance -Conf Patient discharged. Outpatient Attender: Durga RODRIGUEZeferrer: Eloisa Judd 03/03/2020 09:22:00 AM EDT Clearance for Nitro Use/chest pressure - surg 03/12 [facility] Clearance for Nitro Use/chest pressure - surg 03/12 Immunizations Vaccine Date Status Description Data Source(s) Tdap 04/26/2021 11:02:00 AM EDT completed <td ID="Ntujfnxfnyqci-Luqdflajnaw-TN4">Tdap</td><td ID="ImmunizationDose- 0">1</td><td>04/26/2021</td><td ID="Jycmnotmfdiae-InryrNcgm-OU1">Right Deltoid</td><td></td><td ID="Gaberoplfcpbc-Wzextk-XJ2">Complete (Administered)</td><td>[facility]</td><td ID="Ogcmfyxmzquqn-Ozahz-Vbin-Comment-ID0"></td> [facility] ([facility]) Moderna COVID-19 10/27/2020 05:12:00 PM EDT completed <td ID="Ipbrpvstuytaz-Ztosiioykwz-SI0">Moderna COVID-19</td><td ID="ImmunizationDose-0">1</td><td>10/27/2020</td><td ID="Mdaxjqezepkvs-BlltrYrcw-IN6"></td><td></td><td ID="Ovedxvbmbhnsa-Jzpgbw-MW0">Complete (Refused - Patient objection)</td><td>[facility]</td><td ID="Pukryheusblbl-Ofyml-Bipi-Comment-ID0"></td> [facility] ([facility]) Medications Medication Brand Name Start Date Product Form Dose Route Admi nistrative Instructions Pharmacy Instructions Status Indications Reaction Description Data Source(s) OneTouch Ultra In Vitro Strip OneTouch Ultra In Vitro Strip 04/26/2021 12:00:00 AM EDT 1 active OneTouch Ultra GR EENWAY ([facility]) OneTouch Delica Lancets 30G Miscellaneous OneTouch Del ica Lancets 30G Miscellaneous 04/26/2021 12:00:00 AM EDT 1 acti ve OneTouch Delica Lancets 30G [facility] ([facility]) Basaglar KwikPen 100 UNIT/ML Subcutaneous Solution Pen -injector Basaglar KwikPen 100 UNIT/ML Subcutaneous Solution Pen-injector 04/26/2021 12:00:00 AM EDT active 3 ML insulin glargine 100 UNT/ML Pen Injector [Basaglar] [facility] ([facility]) OneTouch Ultra Mini w/Device Kit OneTouch Ultra Mini w/Devic e Kit 04/26/2021 12:00:00 AM EDT 1 active OneTouch Ultra Mini [facility] ([facility]) normal saline flush 0.9 % injection 3 mL [id number] 04/09/2021 10:00:00 PM EDT 3 mL Intravenous active 3 mL , Intravenous, Every 8 hours (scheduled), First dose on Mon04/09/21 at 2200, PACU (only)
flush per protocol, D/C Main IV fluid if appropriate
[facility] Medication administered onsite Acetaminophen 325 MG Oral Tablet acetaminophen (TYLENO L) 325 MG tablet 650 mg acetaminophen (TYLENOL) 325 MG tablet 650 mg 04/09/2021 08:00:00 PM EDT 650 mg Oral completed 650 mg, Or al, Once, On Mon04/09/21 at 2000, For 1 dose
"Maximum dose of acetaminophen is 4,000 mg from all sources in 24 hours."
[facility] Medication administered onsite Albuterol 0.833 MG/ML / Ipratropium Brom scott 0.167 MG/ML Inhalant Solution ipratropium-albuterol (DUO-NEB) 0.5-2.5 mg/mL nebulizer solution 3 mL ipratropium-albuterol (DUO-NEB) 0.5-2.5 mg/mL nebulizer solution 3 mL 04/09/2021 08:00:00 PM EDT 3 mL Inhalation active Bronchospasm 3 mL, Inhalation, Once, On Mon04/09/21 at 1999, For 1 dose, PACU (only) [facility] Bronchospasm Medication administered onsite Magnesium Chloride 0.95037 MEQ/ML / Pota ssium Chloride 0.0497 MEQ/ML / Sodium Acetate 0.0163 MEQ/ML / Sodium Chloride 0.0899 MEQ/ML / Sodium gluconate 5.02 MG/ML Injectable Solution [Normosol-R] electrolyte-R (NORMOSOL-R/PLASMALYTE-R) solution electrolyte-R (NORMOSOL-R/PLASMALYTE-R) solution 04/09 08:00:00 PM EDT Intravenous active at 1 50 mL/hr, Intravenous, Continuous, Starting on Mon04/09/21 at 1999, For 1 day, PACU (only) [facility] Medication administered onsite 10 ML Atropine Sulfate [...] or 0.04 mg/kg. Max of 6 doses
[facility] Medication administered onsite ondansetron (ZOFRAN) injection 4 mg [id number] 04/09/2021 06:47:3 6 PM EDT 4 mg Intravenous active 4 mg, In travenous, Once as needed, nausea, vomiting, if not given in last 4 hours, Starting on Mon04/09/21 at 1847, For 1 dose, PACU (only) [facility] Medication administered onsite Racepinephrine 22.5 MG/ML Inhalant Solut ion racepinephrine HCl (VAPONEFRIN) 2.25 % inhalation solution 1 mL racepinephrine HCl (VAPONEFRIN) 2.25 % i nhalation solution 1 mL 04/09/2021 06:47:36 PM EDT 1 mL Inhalation active PACU (only), 1 mL, Inhalation, Once as needed, 1 dose, Starting on Mon04/09/21 at 1847, Until Mon04/09/21 at 2359 [facility] Medication administered onsite Albuterol 0.83 MG/ML Inhalant Solution a lbuterol (PROVENTIL) nebulizer solution 2.5 mg albuterol (PROVENTIL) nebulizer solution 2.5 mg 2020 06:47:36 PM EDT 2.5 mg active Reversible Obstructive Airway DiseaseRespiratory Distress Syndrome in the NewbornBronchospastic DiseaseAcute Bronchospastic Disease 2.5 mg, Nebulization, Once a s needed, wheezing, Starting on Mon04/09/21 at 1847, For 1 dose, PACU (only) [facility] Reversible Obstructive Airway Disease Respiratory Distress Syndrome in the New born Bronchospastic Disease Acute Bronchospastic Disease Medication administered onsite labetalol (NORMODYNE,TRANDATE) injection 5 mg [id number] 04/09/2021 06:47:36 PM EDT 5 mg Intravenous active 5 mg , Intravenous, Every 5 min PRN, high blood pressure, for SBP greater than 160, Starting on Mon04/09/21 at 1847, For 4 doses, PACU (only)
Max of 20 MG, hold for HR less than 60
[facility] Medication administered onsite HYDROmorphone (DILAUDID) injection 0.5 mg [id number] 04/09/2021 06:47:36 PM EDT 0.5 mg Intravenous active 0.5 mg, Intravenous, Every 5 min PRN, severe pain (7-10), Starting on Mon04/09/21 at 1847, For 5 doses, PACU (only) [facility] Medication administered onsite Hydralazine Hydrochloride 20 MG/ML [...] PACU (only)
Max dose of 20 mg
[facility] Medication administered onsite fentaNYL Citrate (PF) (SUBLIMAZE) injection 25 mcg [id number] 04/09/2021 06:47:36 PM EDT 25 ug Intravenous active 25 mcg, Intravenous, Every 5 min PRN, moderate pain (4-6), Starting on Mon04/09/21 at 1847, For 12 doses, PACU (only) [facility] Medication administered onsite dextrose 5 % and sodium chloride 0.45 % infusion [id number] 04/09/2021 02:00:00 PM EDT 30 mL/h Intravenous active at 30 mL/hr, 30 mL/hr, Intravenous, Continuous, Starting on Mon04/09/21 at 1400, Pre-op
For diabetics with renal failure on hemo dialysis or peritoneal dialysis
[facility] Medication administered onsite normal saline flush 0.9 % injection 3 mL [id number] 04/09/2021 02:00:00 PM EDT 3 mL Intravenous active 3 mL , Intravenous, Every 8 hours (scheduled), First dose on Mon04/09/21 at 1400, Pre-op
Rapid push positive pressure flushing shall be performed with a 10 cc normal saline syringe to check the PATENCY of a PIV site prior to any infusion therapy initiation unless resistance is met.
[facility] Medication administered onsite carvedilol 25 MG Oral [...] ORAL active [facility] ([facility] Epoetin Cameron 27016 UNT/ML Injectable Marycarmen ution Epoetin Cameron 56412 UNIT/ML Injection Solution Epoetin Cameron 50622 UNIT/ML Injection Solution 01/17/20 12:00:00 AM EDT active epoetin cameron 41639 UNT/ML Injectable Solution [facility] Daily Value Multivitamin Oral Tablet Daily Value Multivitami n Oral Tablet 01/16/2021 12:00:00 AM EDT 1 active Daily Value Multivitamin [facility] Finasteride 5 MG Oral Tablet Finasteride 5 MG Oral Tablet 12:00:00 AM EDT 1 aborted finasteride 5 MG Oral Tablet AMDDISON ([facility]) Sucralfate 1000 MG Oral Tablet Sucralfate 01/13/2021 12:00:00 AM EDT active [facility] ([facility]) Tamsulosin hydrochloride 0.4 MG Oral Capsule Tamsulosi n HCl 0.4 MG Oral Capsule Tamsulosin HCl 0.4 MG Oral Capsule 01/12/2021 12:00:00 AM EDT 1 active tamsulosin hydrochloride 0.4 MG Oral Cap sina [facility] ([facility]) Probiotic Daily Probiotic Daily 01/06/2021 12:00:00 AM EDT ORAL active [facility] ([facility]) Epoetin Cameron 36881 UNT/ML Injectable Solution [Procrit] Proc rit 01/06/2021 12:00:00 AM EDT active M EDENT ([facility]) Basaglar KwikPen 100 UNIT/ML Subcutaneous Solution Pen -injector Basaglar KwikPen 100 UNIT/ML Subcutaneous Solution Pen-injector 12/24/2020 12:00:00 AM EDT active Sensor 3 ML insulin glargine 100 UNT/ML Pen Injector [Basaglar] [facility] iohexol (OMNIPAQUE) 240 MG/ML contrast [id number] 12/15/2020 11:09:30 A M EDT completed Code/Trauma Medication, S tarting on Mon12/15/[address] [place] [address] Medication administered onsite lactobacillus combination no.8 (Adult Probiotic) 11/25 12:44:09 PM EDT ORAL active [facility] lactobacillus combination no.8 (Adult Probiotic) 11/25 12:44:09 PM EDT ORAL active [facility] Insulin Glargine Insulin Glargine (Basag lar Kwikpen U-100 Insulin) 100 unit/mL (3 mL) insulin pen Insulin Glargine (Basaglar Kwikpen U-100 Insulin) 100 unit/mL (3 mL) insulin pen 11/25/2020 12:44:00 PM EDT UNASSIGNED 30 UNIT S [facility]BCUTANEOUSLY [facility] Insulin Glargine (Basag lar Kwikpen U-100 Insulin) 100 unit/mL (3 mL) insulin pen Insulin Glargine (Basaglar Kwikpen U-100 Insulin) 100 unit/mL (3 mL) insulin pen 11/25/2020 12:44:00 PM EDT UNASSIGNED 30 UNIT S UBCUTANEOUSLY active [facility] irbesartan 300 MG Oral Tablet Irbesartan Irbesartan 12:43:29 PM EDT TABLET 300 MG ORAL active [facility] irbesartan 300 MG Oral Tablet Irbesartan Irbesartan 12:43:29 PM EDT TABLET 300 MG ORAL active [facility] Nitroglycerin 0.4 MG Sublingual Tablet [ Nitrostat] Nitrostat 0.4 MG Sublingual Tablet Sublingual Nitrostat 0.4 MG Sublingual Tablet Sublingual 11/17/19 12:00:00 AM EDT completed nitroglycerin 0.4 MG Sublingual Tablet [Nitrostat] [facility] ([facility]) Nitroglycerin 0.4 MG Sublingual Tablet N itroglycerin 0.4 MG Sublingual Tablet Sublingual Nitroglycerin 0.4 MG Sublingual Tablet Sublingual 10/12 12:00:00 AM EST active nitroglycerin 0. 4 MG Sublingual Tablet [facility] ([facility]) carvedilol 3.125 MG Oral Tablet Carvedilol 3.125 [...] th every other day for 2 doses [facility] irbesartan 300 MG Oral Tablet Irbesartan 300 MG Oral T ablet (AVAPRO) Irbesartan 300 MG Oral Tablet (AVAPRO) 10/19/2020 12:00:00 AM EST 300 mg Oral active Take 1 tablet by mouth nightly [facility] Saccharomyces boulardii 250 MG Oral Capsule Saccharomy jian boulardii 250 MG Oral Capsule 10/19/2020 12:00:00 AM EST 1 active Saccharomyces boulardii 250 MG Oral Capsule [facility] Hydralazine Hydrochloride 25 MG Oral Tablet hydrALAZIN E HCl 25 MG Oral Tablet hydrALAZINE HCl 25 MG Oral Tablet 10/19/2020 12:00:00 AM EST 1 aborted hydralazine hydrochloride 25 MG Oral Tab let [facility] Levofloxacin 750 MG Oral Tablet levoFLOXacin 750 MG Or al Tablet levoFLOXacin 750 MG Oral Tablet 10/19/2020 12:00:00 AM EST ab orted levofloxacin 750 MG Oral Tablet [facility] Vancomycin 125 MG Oral Capsule Vancomycin HCl 125 MG O ral Capsule Vancomycin HCl 125 MG Oral Capsule 10/19/2020 12:00:00 AM EST 1 aborted vancomycin 125 MG Oral Capsule [facility] Saccharomyces boulardii 250 MG Oral Caps ule Saccharomyces boulardii 250 MG Oral Capsule (FLORASTOR) Saccharomyces boulardii 250 MG Oral Capsule (FLORASTOR ) 10/18/2020 12:00:00 AM EST 250 mg Oral active Take 1 capsule by mouth Two Times Daily [facility] Hydralazine Hydrochloride 25 MG Oral Tab let hydrALAZINE HCl 25 MG Oral Tablet (APRESOLINE) hydrALAZINE HCl 25 MG Oral Tablet (APRESOLINE) 12:00:00 AM EST 25 mg Oral active Take 1 tablet by mouth every 8 (eight) hours [facility] Vancomycin 125 MG Oral Capsule Vancomycin HCl 125 MG O ral Capsule (VANCOCIN) Vancomycin HCl 125 MG Oral Capsule (VANCOCIN) 10/18/2020 12:00:00 AM EST 125 mg Oral active Take 1 capsule by mouth Four times daily [facility] carvedilol 25 MG Oral Tablet Carvedilol 25 MG Oral Tab let (COREG) Carvedilol 25 MG Oral Tablet (COREG) 10/18/2020 12:00:00 AM EST 25 mg Oral active Take 1 tablet by mouth Two times daily with meals Take together with 3.125 mg tab for total 28.125 mg [facility] carvedilol 3.125 MG Oral Tablet Carvedilol 3.125 MG Or al Tablet (COREG) Carvedilol 3.125 MG Oral Tablet (COREG) 10/18/2020 12:00:00 AM EST 3.125 mg Oral active Take 1 tablet by mouth Two times daily with meals Take with 25 mg tab for total of 28.125 mg [facility] Oxycodone Hydrochloride 5 MG Oral Tablet oxyCODONE (ROXICODONE) immediate release tablet 2.5 mg oxyCODONE (ROXICODONE) immediate release tablet 2.5 mg 10/17/2020 10:30:00 PM EST 2.5 mg Oral completed 2.5 mg, Oral, Once, 10/17/20 at 2230, For 1 dose
Oxycodone immediate release is limited to 10 mg per dose. Higher doses ( only) require Pain Service consultation and approval.
[facility] Medication administered onsite Vancomycin 125 MG [...] premorbid level Hypotension or shock Ileus Megacolon
[facility] Medication administered onsite Insulin Glargine 100 [...] glucose more than 400 mg/dL: notify provider
[facility] Medication administered onsite Saccharomyces boulardii 250 MG Oral Caps ule saccharomyces boulardii (FLORASTOR) capsule 250 mg saccharomyces boulardii (FLORASTOR) capsule 250 mg 01/2021 09:00:00 PM EST 250 mg Oral active 250 mg, Oral, 2 Times Daily, First dose on 10/17/20 at 2100, For 30 days [facility] Medication administered onsite lactobacillus cultures (BACID) 1 tablet [id number] 10/18/19 11:00:00 AM EST 1 {tbl} Oral active 1 tablet, Oral, Daily Standard, First dose on 10/17/20 at 1100, For 30 days [facility] Medication administered onsite Levofloxacin 750 MG Oral Tablet levofloxacin (LEVAQUIN ) tablet 750 mg levofloxacin (LEVAQUIN) tablet 750 mg 10/17/2020 09:00:00 AM EST 75 0 mg Oral active 750 mg, Oral, E very other day, First dose on 10/17/20 at 0900, For 3 doses
Discouraged Uses: Treatment of UTI
[facility] Medication administered onsite Hydralazine Hydrochloride 25 MG Oral Tab let hydrALAZINE (APRESOLINE) tablet 25 mg hydrALAZINE (APRESOLINE) tablet 25 mg 10/17/2020 09:00:00 AM EST 25 mg Oral active 25 mg, Oral, E very 8 hours Standard (3 times per day), First dose on Mon10/17/20 at 0900, For 30 days
Check vital signs before administering
[facility] Medication administered onsite irbesartan 75 MG Oral Tablet irbesartan (AVAPRO) table t 300 mg irbesartan (AVAPRO) tablet 300 mg 10/17/2020 09:00:00 AM EST 300 mg Oral active 300 mg, Oral, Nightly, First dose on Mon10/17/20 at 0900, For 30 days [facility] Medication administered onsite Metoprolol Tartrate 1 MG/ML Injectable S olution metoprolol (LOPRESSOR) injection 5 mg metoprolol (LOPRESSOR) injection 5 mg 10/17/2020 02:00:00 AM EST 5 mg Intravenous completed 5 mg, Intrave nous, Once, Mon10/17/20 at 0200, For 1 dose
Dilute in 25 or 50 mL NS and administer over 30 minutes. If giving IVP, must be administered under the direct supervision of a medical provider and patient on a potline monitor.
[facility] Medication administered onsite Insulin Glargine 100 UNT/ML Injectable S olution insulin glargine (LANTUS) injection 14 Units insulin glargine (LANTUS) injection 14 Units 09:00:00 PM EST 14 U Subcutaneous aborted 14 Units, Subcutaneous, Nightly, First dose (after last modification) on Mon10/16/20 at 2100, For 29 doses
For blood glucose less than 70 mg/dL: follow hypoglycemia protocol ( H-) and notify provider. For blood glucose values between 70 mg/dL and 100 mg/dL at bedtime: provide snack (15 grams of carbohydrates) with some protein. Administer FULL DOSE of insulin glargine (LANTUS) after snack. Record snack in I&O's. For blood glucose more than 400 mg/dL: notify provider
[facility] Medication administered onsite carvedilol (COREG) tablet 28.125 mg 10/16/2020 06:00:00 PM EST 28.125 mg Oral active 28.125 mg, Ora l, 2 Times Daily With Meals, First dose (after last modification) on Mon10/16/20 at 1800, For 51 doses
Check vital signs before administering
[facility] Medication administered onsite magnesium sulfate in dextrose 5 % infusion (premix) 1 g [id number] -[id number] 10/16/2020 09:00:00 AM EST 1 g Intravenous completed 1 g, Intravenous, Administer over 60 Minutes, Once, Mon10/16/20 at 0900, For 1 dose [facility] Medication administered onsite carvedilol 3.125 MG Oral Tablet carvedilol (COREG) tab let 3.125 mg carvedilol (COREG) tablet 3.125 mg 10/16/2020 09:00:00 AM EST 3.125 mg Oral active 3.125 mg, Oral, Once, Mon10/16/20 at 0900 , For 1 dose
Check vital signs before administering
[facility] Medication administered onsite Furosemide 40 MG Oral Tablet furosemide (LASIX) tablet 80 mg furosemide (LASIX) tablet 80 mg 10/16/2020 09:00:00 AM EST 80 mg Oral compl eted 80 mg, Oral, Once, Mon10/16/20 at 0900, For 1 dose [facility] Medication administered onsite Hydralazine Hydrochloride 20 MG/ML Injec table Solution hydrALAZINE (APRESOLINE) injection 10 mg hydrALAZINE (APRESOLINE) injection 10 mg 10/16/2020 04 :15:00 AM EST 10 mg Intravenous completed 10 mg, Intravenous, Once, Mon10/16/20 at 0415, For 1 dose
Dilute in 25-50 ml normal saline. Administer over 30 minutes.
[facility] Medication administered onsite Insulin Glargine 100 [...] glucose more than 400 mg/dL: notify provider
[facility] Medication administered onsite furosemide (LASIX) injection 60 mg [id number] 10/15/2020 02:30:00 PM EST 60 mg Intravenous completed 60 mg, I ntravenous, Once, Scarlett 10/15/20 at 1430, For 1 dose
Notify provider if systolic blood pressure less than: 100 [facility] Medication administered onsite POLYETHYLENE GLYCOL 3350 [...] due to potential increased risk for aspiration.
[facility] Medication administered onsite Piperacillin 3000 MG [...] piperacillin- tazobactam is compatible with Lactated Ringers.
[facility] Medication administered onsite magnesium sulfate in dextrose 5 % infusion (premix) 1 g [id number] -[id number] 10/15/2020 09:00:00 AM EST 1 g Intravenous completed 1 g, Intravenous, Administer over 60 Minutes, Every 1 hour, First dose on Scarlett 10/15/20 at 0900, For 2 doses [facility] Medication administered onsite furosemide (LASIX) injection 40 mg [id number] 10/15/2020 08:00:00 AM EST 40 mg Intravenous completed 40 mg, I ntravenous, Once, Scarlett 10/15/20 at 0800, For 1 dose
Notify provider if systolic blood pressure less than: 100 [facility] Medication administered onsite Metoprolol Tartrate 1 MG/ML Injectable S olution metoprolol (LOPRESSOR) injection 5 mg metoprolol (LOPRESSOR) injection 5 mg 10/15/2020 05:45:00 AM EST 5 mg Intravenous completed 5 mg, Intrave nous, Once, Scarlett 10/15/20 at 0545, For 1 dose
Dilute in 25 or 50 mL NS and administer over 30 minutes. If giving IVP, must be administered under the direct supervision of a medical provider and patient on a potline monitor.
[facility] Medication administered onsite Metoprolol Tartrate 1 MG/ML Injectable S olution metoprolol (LOPRESSOR) injection 5 mg metoprolol (LOPRESSOR) injection 5 mg 10/15/2020 04:00:00 AM EST 5 mg Intravenous completed 5 mg, Intrave nous, Once, Scarlett 10/15/20 at 0400, For 1 dose
Dilute in 25 or 50 mL NS and administer over 30 minutes. If giving IVP, must be administered under the direct supervision of a medical provider and patient on a potline monitor.
[facility] Medication administered onsite insulin lispro (HumaLOG) injection LOW DOSE EATING INS ULIN patients 1-8 Units [id number] 10/14/2020 06:00:00 PM EST U Subcutaneous active 1-8 Units, Subcutaneous, Three Times Daily-With Meals, First dose on Mon10/14/20 at 1800, For 30 days
Nursing MUST open the 'SQ Insulin Dosing Charts' Sidebar Report, or, the Patient Summary or Summary Report within the ED.
[facility] Medication administered onsite Acetaminophen 325 MG Oral Tablet acetaminophen (TYLENO L) tablet 650 mg acetaminophen (TYLENOL) tablet 650 mg 10/14/2020 04:15:00 PM EST 65 0 mg Oral active 650 mg, Oral, T hree Times Daily, First dose (after last modification) on Mon10/14/20 at 1615, For 5 days
Maximum daily dose of acetaminophen is 3,000 mg from all sources in 24 hours.
[facility] Medication administered onsite Oxycodone Hydrochloride 5 [...] only) require Pain Service consultation and approval.
[facility] Medication administered onsite Furosemide 20 MG Oral Tablet furosemide (LASIX) tablet 20 mg furosemide (LASIX) tablet 20 mg 10/14/2020 03:00:00 PM EST 20 mg Oral abort ed 20 mg, Oral, Daily Standard, First dose on Mon10/14/20 at 1500, For 30 days [facility] Medication administered onsite Losartan Potassium 50 MG Oral Tablet losartan (COZAAR) tablet 100 mg losartan (COZAAR) tablet 100 mg 10/14/2020 02:15:00 PM EST 100 mg Oral aborted 100 mg, Oral, Daily Standard, First dose (after last modification) on Mon10/14/20 at 1415, For 30 days
Check vital signs before administering
[facility] Medication administered onsite Docusate Sodium 100 MG Oral Capsule docusate sodium (C OLACE) capsule 100 mg docusate sodium (COLACE) capsule 100 mg 10/13/2020 09:00:00 PM EST 100 mg Oral aborted 100 mg, Oral, 2 Times Daily, First dose on Mon10/13/20 at 2100, For 30 days [facility] Medication administered onsite Calcium Chloride 0.0014 MEQ/ML / Potassi um Chloride 0.004 MEQ/ML / Sodium Chloride 0.103 MEQ/ML / Sodium Lactate 0.028 MEQ/ML Injectable Solution lactated ringers infusion lactated ringers infusion 10/12/2020 08:00:00 PM EST 50 mL/h Intravenous aborted at 50 mL /hr, Intravenous, Continuous, Starting Mon10/12/20 at 2000, For 30 days [facility] Medication administered onsite TC-99M mebrofenin (CHOLETEC) [id number] 10/12/2020 12:45:00 PM EST Intravenous completed Intravenous, Once, Mon10/12/20 at 1245, For 1 dose, Imaging Protocol [facility] Medication administered onsite sincalide (KINEVAC) 1 mcg in sodium chloride 0.9 % 25 mL IVP B 10/12/2020 10:15:00 AM EST 1 ug Intravenous completed 1 mcg, Intravenous, Administer over 10 Minutes, Once, Mon10/12/20 at 1015, For 1 dose [facility] Medication administered onsite Piperacillin 3000 MG [...] of piperacillin-tazobactam is compatible with Lactated Ringers.
[facility] Medication administered onsite pantoprazole 40 MG Delayed Release Oral Tablet pantoprazole (PROTONIX) EC tablet 40 mg pantoprazole (PROTONIX) EC tablet 40 mg 10/12/2020 09:00:[address] 40 mg Oral active 40 mg, Ora l, Daily Standard, First dose on Mon10/12/20 at 0900, For 30 days
Do not crush or chew
[facility] Medication administered onsite heparin (porcine) 5000 UNIT/ML injection 5,000 Units [id number] 10/12/2020 09:00:00 AM EST 5000 U Subcutaneous active 5,000 Units, Subcutaneous, Three Times Daily Standard, First dose on Mon10/12/20 at 0900, For 30 days [facility] Medication administered onsite ezetimibe 10 MG Oral Tablet ezetimibe (ZETIA) tablet 1 0 mg ezetimibe (ZETIA) tablet 10 mg 10/12/2020 09:00:00 AM EST 10 mg Oral activ e 10 mg, Oral, Daily Standard, First dose on Mon10/12/20 at 0900, For 30 days [facility] Medication administered onsite carvedilol 12.5 MG Oral Tablet carvedilol (COREG) tabl et 25 mg carvedilol (COREG) tablet 25 mg 10/12/2020 09:00:00 AM EST 25 mg Oral aborted 25 mg, Oral, 2 Times Daily With Meals, First dose on Mon10/12/20 at 0900, For 30 days
Check vital signs before administering
[facility] Medication administered onsite Aspirin 81 MG Chewable Tablet aspirin chewable tablet 81 mg aspirin chewable tablet 81 mg 10/12/2020 09:00:00 AM EST 81 mg Oral activ e 81 mg, Oral, Daily Standard, First dose on Mon10/12/20 at 0900, For 30 days [facility] Medication administered onsite ferrous sulfate 325 MG Delayed Release O ral Tablet ferrous sulfate EC tablet 325 mg ferrous sulfate EC tablet 325 mg 10/12/2020 08:00:00 AM EST 325 mg Oral active 325 mg, Oral, Da carrie with Breakfast, First dose on Mon10/12/20 at 0800, For 30 days [facility] Medication administered onsite Calcium Chloride 0.0014 MEQ/ML / Potassi um Chloride 0.004 MEQ/ML / Sodium Chloride 0.103 MEQ/ML / Sodium Lactate 0.028 MEQ/ML Injectable Solution lactated ringers infusion lactated ringers infusion 10/12/2020 07:45:00 AM EST 200 mL/h Intravenous completed at 200 m L/hr, Intravenous, Continuous, Starting Mon10/12/20 at 0745, For 12 hours [facility] Medication administered onsite Calcium Chloride 0.0014 MEQ/ML / Potassi um Chloride 0.004 MEQ/ML / Sodium Chloride 0.103 MEQ/ML / Sodium Lactate 0.028 MEQ/ML Injectable Solution lactated ringers infusion lactated ringers infusion 10/11/2020 10:15:00 PM EST 200 mL/h Intravenous completed at 200 m L/hr, Intravenous, Continuous, Starting Mon10/11/20 at 2215, For 12 hours [facility] Medication administered onsite Nitroglycerin 0.4 MG Sublingual Tablet n itroglycerin (NITROSTAT) SL tablet 0.4 mg nitroglycerin (NITROSTAT) SL tablet 0.4 mg 10/11/2020 10:12:14 P M EST 0.4 mg Sublingual active 0.4 mg, S ublingual, Every 5 min PRN, Chest pain, Starting [place] 10/11/20 at 2212, For 30 days [facility] Medication administered onsite insulin lispro (HUMALOG) injection LOW DOSE NPO INSULI N patients 1-5 Units [id number] 10/11/2020 09:00:00 PM EST U Subcutaneous aborted 1-5 Units, Subcutaneous, Every 4 hours, First dose on [place] 10/11/20 at 2100, For 30 days
Nursing MUST open the 'SQ Insulin Dosing Charts' Sidebar Report, or, the Patient Summary or Summary Report within the ED.
[facility] Medication administered onsite lactated ringers bolus 1,000 mL [id number] 10/11/2020 09:00:00 PM EST 1000 mL Intravenous completed 1,000 mL , Intravenous, Once, [place] 10/11/20 at 2100, For 1 dose [facility] Medication administered onsite Metronidazole 5 MG/ML Injectable Solution metroNIDAZOL E (FLAGYL) IVPB 500 mg metroNIDAZOLE (FLAGYL) IVPB 500 mg 10/11/2020 09:00:00 PM EST 50 0 mg Intravenous aborted 500 mg, Intra venous, Administer over 60 Minutes, Every 8 hours, First dose on [place] 10/11/20 at 2100, For 7 days [facility] Medication administered onsite Ceftriaxone 1000 MG Injection cefTRIAXone (ROCEPHIN) I VPB (premix) 1 g cefTRIAXone (ROCEPHIN) IVPB (premix) 1 g 10/11/2020 09:00:00 PM EST 1 g Intravenous aborted 1 g, Intraven ous, at 100 mL/hr, Every 24 hours, First dose on [place] 10/11/20 at 2100, For 7 days
Discouraged Uses: Empiric treatment of post-surgical meningitis (ceftazidime preferred)
[facility] Medication administered onsite Glucose 0.417 MG/MG Oral Gel glucose (GLUTOSE) 40 % or al gel 15 g glucose (GLUTOSE) 40 % oral gel 15 g 10/11/2020 08:55:55 PM EST 15 g Oral active 15 g, Oral, PRN, Low blood s ugar, for gluose 55-69 mg/dl and able to take PO, Starting [place] 10/11/20 at 2054, For 30 days [facility] Medication administered onsite Glucagon 1 MG Injection glucagon (human recombinant) ( GLUCAGEN) injection 1 mg glucagon (human recombinant) (GLUCAGEN) injection 1 mg 10/11/2020 08:55:55 PM EST 1 mg Intramuscular active 1 mg, Intramuscular, PRN, for glucose <55 without IV access, Starting [place] 10/11/20 at 2054, For 30 days [facility] Medication administered onsite dextrose 50 % IV solution 25 mL [id number] 10/11/2020 08:55:[address] 25 mL Intravenous active 25 mL, Intrav enous, PRN, Other, blood glucose <55, Starting [place] 10/11/20 at 2054, For 30 days
Not for midline administration.
[facility] Medication administered onsite pantoprazole 40 MG Delayed Release Oral Tablet Pantoprazole Sodium 40 MG Oral Tablet Delayed Release Pantoprazole Sodium 40 MG Oral Tablet Delayed Release 09/17/2020 12:00:00 AM EST 1 active pantoprazole 40 MG Delayed Release Oral Tablet [facility]) Nitroglycerin 0.4 MG Sublingual Tablet N itroglycerin [...] 1 active carvedilol 25 MG Oral Tablet [facility]ERSON ([facility]) OneTouch Ultra In Vitro Strip OneTouch Ultra In Vitro Strip 08/28/2020 12:00:00 AM EST aborted OneTouch Ultra G REENWAY ([facility]) OneTouch Ultra In Vitro Strip OneTouch Ultra In Vitro Strip 08/28/2020 12:00:00 AM EST active OneTouch Ultra [facility] ([facility]) ezetimibe 10 MG Oral Tablet Ezetimibe 10 MG Oral Table t Ezetimibe 10 MG Oral Tablet 08/04/2020 12:00:00 AM EST 1 active ezetimibe 10 MG Oral Tablet [facility] ([facility]) Minoxidil 2.5 MG Oral Tablet Minoxidil 2.5 MG Oral Tablet 12:00:00 AM EST active minoxidil 2.5 MG Oral Tablet [facility] ([facility]) Epoetin Cameron 4000 UNT/ML Injectable Solu tion [Epogen] Epogen 4000 UNIT/ML Injection Solution Epogen 4000 UNIT/ML Injection Solution 07/22/2020 12:0 0:00 AM EST aborted 1 ML epoetin darrin a 4000 UNT/ML Injection [Epogen] [facility] ([facility]) decitabine 5 MG/ML Injectable Solution [ Dacogen] Dacogen 50 MG Intravenous Solution Reconstituted Dacogen 50 MG Intravenous Solution Reconstituted 07/22/2020 12:00:00 AM EST aborted decitabine 50 MG Injection [Dacogen] [facility] ([facility]) Basaglar KwikPen 100 UNIT/ML Subcutaneous Solution Pen -injector Basaglar KwikPen 100 UNIT/ML Subcutaneous Solution Pen-injector 05/12/2020 12:00:00 AM EDT active Sensor 3 ML insulin glargine 100 UNT/ML Pen Injector [Basaglar] [facility] ([facility]) pantoprazole 40 MG Delayed Release Oral Tablet Pantoprazole Sodium 40 MG Oral Tablet Delayed Release Pantoprazole Sodium 40 MG Oral Tablet Delayed Release 04/27/2020 12:00:00 AM EDT 1 aborted pantoprazole 40 MG Delayed Release Oral Tablet [facility] ([facility]) Hydrochlorothiazide 12.5 MG / Losartan P otassium 50 MG Oral Tablet Losartan Potassium-HCTZ 50-12.5 MG Oral Tablet Losartan Potassium-HCTZ 50-12.5 MG Oral Tablet 04/27/2020 12:00:00 AM EDT 1 aborted hydrochlorothiazide 12.5 MG / losartan potassium 50 MG Oral Tablet [facility] ([facility]) carvedilol 25 MG Oral Tablet Carvedilol 25 MG Oral Tab let Carvedilol 25 MG Oral Tablet 04/27/2020 12:00:00 AM EDT 1 aborted carvedilol 25 MG Oral Tablet [facility] ([facility]) Basaglar KwikPen 100 UNIT/ML Subcutaneous Solution Pen -injector Basaglar KwikPen 100 UNIT/ML Subcutaneous Solution Pen-injector 04/03/2020 12:00:00 AM EDT aborted Sensor 3 ML in sulin glargine 100 UNT/ML Pen Injector [Basaglar] [facility] ([facility]) Flintstones Gummies Oral Tablet Chewable Flintstones G ummies Oral Tablet Chewable 03/24/2020 12:00:00 AM EDT aborted Flintstones Gummies [facility] ([facility]) Epoetin Cameron 4000 UNT/ML Injectable Solu tion [Epogen] Epogen 4000 UNIT/ML Injection Solution Epogen 4000 UNIT/ML Injection Solution 03/24/2020 12:0 0:00 AM EDT aborted 1 ML epoetin darrin a 4000 UNT/ML Injection [Epogen] [facility] ([facility]) Epoetin [place] 92883 UNT/ML Injectable Marycarmen ution [Epogen] Epogen 17879 UNIT/ML Injection Solution Epogen 65611 UNIT/ML Injection Solution 03/24/2020 12: 00:00 AM EDT aborted epoetin cameron 57510 UNT/ML Injectable Solution [Epogen] [facility] ([facility]) ezetimibe 10 MG Oral Tablet Ezetimibe 10 MG Oral Table t Ezetimibe 10 MG Oral Tablet 03/24/2020 12:00:00 AM EDT aborted ezetimibe 10 MG Oral Tablet [facility] ([facility]) Furosemide 20 MG Oral Tablet [Lasix] Lasix 20 MG Oral Tablet Lasix 20 MG Oral Tablet 03/24/2020 12:00:00 AM EDT 1 aborted furosemide 20 MG Oral Tablet [Lasix] [facility] ([facility]) OneTouch Ultra In Vitro Strip OneTouch Ultra In Vitro Strip 03/18/2020 12:00:00 AM EDT aborted OneTouch Ultra G REENWAY ([facility]) Nitroglycerin 0.4 MG Sublingual Tablet [ Nitrostat] Nitrostat 0.4 MG Sublingual Tablet Sublingual Nitrostat 0.4 MG Sublingual Tablet Sublingual 02/08/20 12:00:00 AM EDT completed nitroglycerin 0.4 MG Sublingual Tablet [Nitrostat] [facility] ([facility]) Hydrochlorothiazide 12.5 MG / Losartan P otassium 100 MG Oral Tablet Losartan-Hydrochlorothiazide Losartan-Hydrochlorothiazide 12/16/2019 05:37:37 AM EDT TABLET 1 TAB ORAL completed [facility] Hydrochlorothiazide 12.5 MG / Losartan P otassium 100 MG Oral Tablet Losartan-Hydrochlorothiazide Losartan-Hydrochlorothiazide 12/16/2019 05:37:37 AM EDT TABLET 1 TAB ORAL completed [facility] pantoprazole 40 MG Delayed Release Oral Tablet Pantoprazole Sodium 40 MG Oral Tablet Delayed Release Pantoprazole Sodium 40 MG Oral Tablet Delayed Release 11/08/2019 12:00:00 AM EDT 1 aborted pantoprazole 40 MG Delayed Release Oral Tablet [facility] ([facility]) carvedilol 25 MG Oral Tablet Carvedilol 25 MG Oral Tab let Carvedilol 25 MG Oral Tablet 11/08/2019 12:00:00 AM EDT 1 aborted carvedilol 25 MG Oral Tablet [place] ([facility]) Minoxidil 2.5 MG Oral Tablet Minoxidil 2.5 MG Oral Tablet 12:00:00 AM EST 1 aborted minoxidil 2.5 MG Oral Tablet [facility] ([facility]) Hydrochlorothiazide 25 MG / Losartan Pot assium 100 MG Oral Tablet Losartan Potassium-HCTZ 100-25 MG Oral Tablet Losartan Potassium-HCTZ 100-25 MG Oral Tablet 05/17/2019 12:00:00 AM EDT 1 aborted hydrochlorothiazide 25 MG / losartan potassium 100 MG Oral Tablet [facility] ([facility]) Nystatin 100 UNT/MG Topical Powder Nystatin 877000GFHW /GM External Powder Nystatin 819991HYSC/GM External Powder 01/10/2019 12:00:00 AM EDT 1 aborted nystatin 100 UNT/MG Topical Powd er [facility] ([facility]) Insulin Glargine Insulin Glargine (Basag lar Kwikpen U-100) 100 UNIT/ML (3 ML) insulin pen Insulin Glargine (Basaglar Kwikpen U-100 ) 100 UNIT/ML (3 ML) insulin pen 12/13/2017 06:43:00 AM EDT UNASSIGNED 100 UNIT SUB-Q [facility] Insulin Glargine Insulin Glargine (Basag lar Kwikpen U-100) 100 UNIT/ML (3 ML) insulin pen Insulin Glargine (Basaglar Kwikpen U-100 ) 100 UNIT/ML (3 ML) insulin pen 12/13/2017 06:43:00 AM EDT UNASSIGNED 100 UNIT SUB-Q [facility] Sure Comfort Pen [place] 31G X 8 MM Miscellaneous Sure Comfort Pen [place] 31G X 8 MM Miscellaneous 03/10/2017 12:00:00 AM EDT aborted Sure Comfort Pen [place] [facility] ([facility]) Ascorbic Acid 60 MG / Beta Carotene 5000 UNT / Copper Sulfate 40 MG / dl-alpha tocopheryl acetate 30 UNT / Sodium Selenite 0.04 MG / Zinc Oxide 40 MG Oral Tablet Multiple Vitamins-Iron (MULTIVITAMIN WITH IRON) TABS Multiple Vitamins- Iron (MULTIVITAMIN WITH IRON) TABS 06/10/2016 12:00:00 AM EDT 2 {tbl} Oral aborted Take 2 tablets by mouth catia y [facility] Aspirin 81 MG Delayed Release Oral Tablet aspirin EC 8 1 MG EC tablet aspirin EC 81 MG EC tablet 06/09/2016 12:00:00 AM EDT 81 mg Oral ab orted Take 1 tablet (81 mg total) by mouth daily MAY RESTART IN TEN DAYS AFTER DISCHARGE [facility] 200 ACTUAT Albuterol 0.09 MG/ACTUAT Mete red Dose Inhaler [ProAir] ProAir HFA 108 (90 Base) MCG/ACT Aerosol Solution ProAir HFA 108 (90 Base) MCG/ACT Aerosol Solution 05/29/2015 12:00:00 AM EDT aborted [id number] ACTUAT albuterol 0.09 MG/ACTUAT Metered Dose Inhaler [ProAir] [facility] ([facility]) albuterol (PROVENTIL HFA;VENTOLIN HFA) 108 (90 Base) M CG/ACT inhaler [id number] 2 {puff} Inhalation aborted Inhale 2 puffs every 4 (four) hours as needed for wheezing [facility] Losartan Potassium 25 MG Oral Tablet losartan (COZAAR) 25 MG tablet losartan (COZAAR) 25 MG tablet 25 mg Oral aborted Ta ke 25 mg by mouth daily [facility] carvedilol 25 MG Oral Tablet carvedilol (COREG) 25 MG tablet carvedilol (COREG) 25 MG tablet 25 mg Oral aborted Ran e 25 mg by mouth Two times daily with meals [facility] Insulin Glargine 100 UNT/ML Injectable S olution insulin glargine (INSULIN GLARGINE) 100 UNIT/ML injection insulin glargine (INSULIN GLARGINE) 100 UNIT/ML injection U Subcutaneous aborted Inject 20-30 Units under the skin nightly [facility] Hydrochlorothiazide 12.5 MG / Losartan P otassium 100 MG Oral Tablet Losartan Potassium-HCTZ 100-12.5 MG Oral Tablet (HYZAAR) Losartan Potassium-HCTZ 100-12.5 MG Oral Tablet (HYZAAR) 1 {tbl} Oral aborted Take 1 tablet by mouth daily [facility] Insurance Providers Payer name Policy type / Coverage type Policy ID Covered green party ID Covered green party's relationship to villa Policy [place] Plan Information [facility] 2 [id number] 1 [id number] [facility] PLANS 1 [id number] [facility] [id number] [facility] [id number] SP [id number] [employer] OPTIONS [id number] SP [id number] MEDICARE [id number] SP [id number] A MEDICARE A [id number] Self [id number] N25 MEDICARE [id number] SP [id number] A MEDICARE [id number] SP [id number] N25 Medicare [place] of [place] Other 0 [id number] Self 0 [place] Other 0 [id number] Self 0 [place] Other 0 [id number] Self 0 [place] Other 0 [id number] Self 0 Medicare [place] Other 0 [id number] Self 0 Medicare [place] Other 0 [id number] Self 0 Medicare [place] Other 0 [id number] Self 0 Medicare [place] Other 0 [id number] Self 0 Medicare [place] Other 0 [id number] Self 0 Medicare [place] Other 0 [id number] Self 0 Medicare [place] Other 0 [id number] Self 0 Medicare [place] Other 0 [id number] Self 0 Medicare [place] Other 0 [id number] Self 0 Medicare Part B [place] [facility] [id number] Medicare [place] Other 0 [id number] Self 0 Medicare [place] Other 0 [id number] Self 0 Medicare [place] Other 0 [id number] Self 0 Medicare [place] Other 0 [id number] Self 0 Medicare [place] Other 0 [id number] Self 0 Medicare [place] Other 0 [id number] Self 0 Medicare [place] Other 0 [id number] Self 0 Medicare [place] Other 0 [id number] Self 0 Medicare [place] Other 0 [id number] Self 0 Medicare [place] Other 0 [id number] Self 0 Medicare [place] Other 0 [id number] Self 0 Medicare [place] Other 0 [id number] Self 0 Medicare [place] Other 0 [id number] Self 0 Medicare [place] Other 0 [id number] Self 0 Medicare [place] Other 0 [id number] Self 0 Medicare [place] Other 0 [id number] Self 0 Medicare [place] Other 0 [id number] Self 0 Medicare [place] Other 0 [id number] Self 0 Medicare [place] Other 0 [id number] Self 0 MEDICARE [id number] SP [id number] A Medicare [place] Other 0 [id number] Self 0 Medicare [place] Other 0 [id number] Self 0 Medicare Part B Medicare Primary [id number] Self [id number] Medicare Part B Medicare Primary [id number] Self [id number] Medicare Part [place] of [place] Other 0 [id number] Self 0 Medicare [place] Other 0 [id number] Self 0 Medicare Medigap Part B [id number] Self Medicare [place] Other 0 [id number] Self 0 Medicare [place] Other 0 [id number] Self 0 Medicare [place] Other 0 [id number] Self 0 Medicare [place] Other 0 [id number] Self 0 Medicare [place] of [place] Other [id number] Self [facility] MEDICARE [id number] SP [id number] [facility] MEDICARE SOLUTIO 11 [id number] 1 [id number] BLUE CROSS [id number] SP [id number] [facility] MEDICARE SOLUTIO 11 XXX 1 XXX BLUE CROSS [id number] SP [id number] BC EXC PLANS 1 [id number] BC EXC PLANS 1 [id number] [employer] [place] [id number] Family Dependent [employer] OPTIONS [id number] SP [id number] [facility] Medigap Part B [id number] Self [id number] [employer] OPTIONS [id number] SP [id number] AARP U [id number] Self [id number] [facility] [id number] [place] [id number] [facility] [id number] [employer] OPTIONS [id number] SP [id number] [facility] [id number] [employer] OPTIONS [id number] SP [id number] [employer] [id number] SP [id number] MEDICARE [id number] SP [id number] [employer] OPTIONS [id number] SP [id number] [employer] OPTIONS [id number] SP [id number] MEDICARE [id number] SP [id number] SELF PAY [employer] OPTIONS [id number] SP [id number] MEDICARE [id number] SP [id number] N25 SELF PAY [employer] OPTIONS [id number] SP [id number] SELF PAY [employer] OPTIONS [id number] SP [id number] MEDICARE [id number] SP [id number] N25 SELF PAY MEDICARE [id number] SP [id number] N25 [employer] OPTIONS [id number] SP [id number] SELF PAY [employer] OPTIONS [id number] SP [id number] MEDICARE [id number] SP [id number] N25 [employer] OPTIONS [id number] SP [id number] MEDICARE [id number] SP [id number] N25 SELF PAY MEDICARE [id number] SP [id number] N25 [employer] OPTIONS [id number] SP [id number] [employer] OPT[employer] [id number] SP [id number] MEDICARE [id number] SP [id number] N25 SELF PAY MEDICARE [id number] SP [id number] N25 [employer]ARP [facility] OPTIONS [id number] SP [id number] SELF PAY SELF PAY [employer] OPTIONS [id number] SP [id number] MEDICARE [id number] SP [id number] N25 MEDICARE [id number] SP [id number] [employer] OPTIONS [id number] SP [id number] SELF PAY INSURANCE COVID-19 COVID [place] INSURANCE COVID-19 [id number] INSURANCE COVID-19 COVID [place] OVID [employer] [id number] Self [id number] [facility] Medicare Medicare Part B [id number] Self [id number] SELF PAY MEDICARE [id number] SP [id number] A AARP O [id number] S [id number] MEDICARE C [id number] S [id number] A [facility] Medigap Part B [id number] Self Medicare Natl Gov't Servi Medicare Primary [id number] Self [employer] OPTIONS [id number] SP [id number] [facility] Patent [employer] [id number] Self [facility] Medigap Part B [id number] Self MEDICARE [id number] SELF PAY 2 UNAVAILABLE 1 UNAVAILA BLE MEDICARE [id number] [place] [id number] N25 [employer] OPTIONS [id number] SP [id number] Medicare Natl Gov't Servi Medicare Primary [id number] Self [id number] [place] 306/806 [id number] SELF PAY UNAVAILABLE SP UNAVAILA BLE MEDICARE [id number] SP [id number] N25 BC EXC PLANS 1 [id number] [facility] Medigap Part B [id number] Self [id number] [place] Primary [id number] Self [id number] [facility] Medigap Part B [id number] Self [id number] Medicare Natl Gov't Servi Medicare Primary [id number] Self [id number] [facility] Medigap Part B [id number] Self [id number] [facility] Medigap Part B [id number] Self [id number] [place] Primary [id number] Self [id number] Medicare Natl Gov't Servi Medicare Primary [id number] Self [id number] [facility] Medigap Part B [id number] Self [id number] [place] Medicare Primary [id number] Self [id number] [facility] Medigap Part B [id number] Self [id number] MEDICARE PART A -O/P [id number] [facility] Medigap Part B [id number] Self [id number] Medicare [place] Medicare Primary [id number] Self [id number] [facility] Medigap Part B [id number] Self [id number] Medicare Natl Gov't Servi Medicare Primary [id number] Self [id number] MEDICARE [id number] [facility] [id number] A MEDICARE PI PI [facility] PI PI Problems, Conditions, and Diagnoses Code Display Name Description Problem Type Effective Dates Data Source(s) Z99.2 Dependence on renal dialysis Dependence on renal dialy sis Diagnosis 04/09/2021 11:26:00 AM EDT [facility] N18.6 End stage renal disease End stage renal disease Diagno sis 04/09/2021 11:26:00 AM EDT [facility] U07.1 COVID-19 COVID-19 Diagnosis 04/05/2021 08:45:37 AM ED T [facility] E11.9 Type 2 diabetes mellitus without complic ations E11.9 - Type 2 diabetes mellitus without complications Diagnosis 12/24/2020 10:07:00 PM EDT [facility] E08.8 Diabetes mellitus due to und erlying condition with unspecified complications E08.8 - Diabetes mellitus due to underly ing condition with unspecified complications Diagnosis 12/24/2020 10:07:00 PM EDT [facility] K81.9 Cholecystitis, unspecified Cholecystitis, unspecified Diagnosis 12/15/2020 10:35:12 AM EDT [facility] I73.9 Peripheral vascular disease, unspecified I73.9 [...] hypertension Diagnosis 11/25/2020 12:32:00 PM EDT [facility] Z95.1 Presence of aortocoronary bypass graft Z 95.1 - Presence of aortocoronary bypass graft Diagnosis 11/25/2020 12:32:00 PM EDT [facility] Z98.62 Peripheral vascular angioplasty status Z 98.62 - Peripheral vascular angioplasty status Diagnosis 11/25/2020 12:32:00 PM EDT [facility] I25.10 Atherosclerotic heart diseas e of [place] coronary artery without angina pectoris I25.10 - Atherosclerotic heart disease o f [place] coronary artery without angina pectoris Diagnosis 11/25/2020 12:32:00 PM EDT [facility] N18.31 Chronic kidney disease, stage 3a Chronic kidney disease, stage 3a Diagnosis 10/11/2020 08:10:14 PM [facility] N17.9 Acute kidney failure, unspecified Acute kidney f ailure, unspecified Diagnosis 10/11/2020 08:10:14 PM [facility] K85.10 Biliary acute pancreatitis without necro sis or infection Biliary acute pancreatitis without necrosis or infection Diagnosis 10/11/2020 05:32: 00 PM [facility] cholethiasis, RUQ paind, dilated CBD cholethiasi s, RUQ paind, dilated CBD Diagnosis 10/11/2020 05:32:00 PM [facility] J44.9 COPD (chronic obstructive pulmonary dise ase) COPD (chronic obstructive pulmonary disease) [id number] 04/07/2021 12:00:00 AM EDT [facility] I25.10 Coronary artery disease Coronary artery disease [id number] 04/07/2021 12:00:00 AM EDT [facility] K21.9 GERD (gastroesophageal reflux disease) G ERD (gastroesophageal reflux disease) [id number] 04/07/2021 12:00:00 AM EDT [facility] E78.5 Hyperlipidemia Hyperlipidemia [id number] 04/07/2021 12:00: 00 AM EDT [facility] M19.90 Osteoarthritis Osteoarthritis [id number] 04/07/2021 12:00: 00 AM EDT [facility] E11.9 Diabetes mellitus type 2, insulin depend ent Diabetes mellitus type 2, insulin dependent [id number] 04/07/2021 12:00:00 AM EDT [facility] N18.6 End stage renal disease on dialysis End stage re nal disease on dialysis [id number] 04/07/2021 12:00:00 AM EDT [facility] 586 Renal Failure Renal Failure Problem [...] 10/25/2020 10:47:00 AM EDT [facility] ([facility]) A04.72 Clostridium Difficile Clostridium Difficile [...] Problem 10/19/2020 04:59:00 PM EST [facility] ([facility]) 427.31 Atrial Fibrillation with Rapid Ventricul ar Response Atrial Fibrillation with Rapid Ventricular Response Problem 10/19/2020 04:58:00 PM EST [facility] ([facility]) K85.12 Acute Pancreatitis Due To Gallstones Acu te Pancreatitis Due To Gallstones Problem 10/19/2020 04:58:00 PM EST [facility] 427.31 Atrial Fibrillation with Rapid Ventricul ar Response Atrial Fibrillation with Rapid Ventricular Response Problem 10/19/2020 04:58:00 PM EST [facility] ([facility]) K85.12 Acute Pancreatitis Due To Gallstones Acu te Pancreatitis Due To Gallstones Problem 10/19/2020 04:58:00 PM EST [facility] ([facility]) 427.31 Atrial Fibrillation with Rapid Ventricul ar Response Atrial Fibrillation with Rapid Ventricular Response Problem 10/19/2020 04:58:00 PM EST [facility] ([facility]) K85.12 Acute Pancreatitis Due To Gallstones Acu te Pancreatitis Due To Gallstones Problem 10/19/2020 04:58:00 PM EST [facility] 427.31 Atrial Fibrillation with Rapid Ventricul ar Response Atrial Fibrillation with Rapid Ventricular Response Problem 10/19/2020 04:58:00 PM EST [facility] ([facility]) K85.12 Acute Pancreatitis Due To Gallstones Acu te Pancreatitis Due To Gallstones Problem 10/19/2020 04:58:00 PM EST [facility] 427.31 Atrial Fibrillation with Rapid Ventricul ar Response Atrial Fibrillation with Rapid Ventricular Response Problem 10/19/2020 04:58:00 PM EST [facility] ([facility]) K85.12 Acute Pancreatitis Due To Gallstones Acu te Pancreatitis Due To Gallstones Problem 10/19/2020 04:58:00 PM EST [facility] ([facility]) 427.31 Atrial Fibrillation with Rapid Ventricul ar Response Atrial Fibrillation with Rapid Ventricular Response Problem 10/19/2020 04:58:00 PM EST [facility] ([facility]) K85.12 Acute Pancreatitis Due To Gallstones Acu te Pancreatitis Due To Gallstones Problem 10/19/2020 04:58:00 PM EST [facility] ([facility]) 427.31 Atrial Fibrillation with Rapid Ventricul ar Response Atrial Fibrillation with Rapid Ventricular Response Problem 10/19/2020 04:58:00 PM EST [facility] K85.12 Acute Pancreatitis Due To Gallstones Acu te Pancreatitis Due To Gallstones Problem 10/19/2020 04:58:00 PM EST [facility] ([facility]) 427.31 Atrial Fibrillation with Rapid Ventricul ar Response Atrial Fibrillation with Rapid Ventricular Response Problem 10/19/2020 04:58:00 PM EST [facility] K85.12 Acute Pancreatitis Due To Gallstones Acu te Pancreatitis Due To Gallstones Problem 10/19/2020 04:58:00 PM EST [facility] 427.31 Atrial Fibrillation with Rapid Ventricul ar Response Atrial Fibrillation with Rapid Ventricular Response Problem 10/19/2020 04:58:00 PM EST [facility] K85.12 Acute Pancreatitis Due To Gallstones Acu te Pancreatitis Due To Gallstones Problem 10/19/2020 04:58:00 PM EST [facility] 427.31 Atrial Fibrillation with Rapid Ventricul ar Response Atrial Fibrillation with Rapid Ventricular Response Problem 10/19/2020 04:58:00 PM EST [facility] 29839 Acute Pancreatitis Due To Gallstones Acute Pancr eatitis Due To Gallstones Problem 10/19/2020 04:58:00 PM EST [facility] ([facility]) 575.0 Acute Cholecystitis Acute Cholecystitis Problem 0 10/19/2020 04:57:00 PM EST [facility] 575.0 Acute Cholecystitis Acute Cholecystitis Problem 0 10/19/2020 04:57:00 PM EST [facility] 575.0 Acute Cholecystitis Acute Cholecystitis Problem 0 10/19/2020 04:57:00 PM EST [facility] 575.0 Acute Cholecystitis Acute Cholecystitis Problem 0 10/19/2020 04:57:00 PM EST [facility] 575.0 Acute Cholecystitis Acute Cholecystitis Problem 0 10/19/2020 04:57:00 PM EST [facility] 575.0 Acute Cholecystitis Acute Cholecystitis Problem 0 10/19/2020 04:57:00 PM EST [place] ([facility]) 575.0 Acute Cholecystitis Acute Cholecystitis Problem 0 10/19/2020 04:57:00 PM EST [place] ([facility]) 575.0 Acute Cholecystitis Acute Cholecystitis Problem 0 10/19/2020 04:57:00 PM EST [place] ([facility]) 575.0 Acute Cholecystitis Acute Cholecystitis Problem 0 10/19/2020 04:57:00 PM EST [place] ([facility]) 575.0 Acute Cholecystitis Acute Cholecystitis Problem 0 10/19/2020 04:57:00 PM EST [place] ([facility]) [id number] Emcrn-Snkrswoxj-Vggez pattern Rrnjy-Hqqxyicjf-Zzkwl pa ttern Problem 10/11/2020 12:00:00 AM EST [facility] ([facility]) [id number] Insulin treated type 2 diabetes mellitus Insulin treated type 2 diabetes mellitus Problem 10/11/2020 12:00:00 AM EST [facility] ([facility] [id number] Hyperlipidemia Hyperlipidemia Problem 10/11/2020 12:00: 00 AM EST [facility] ([facility]) [id number] Gastroesophageal reflux disease Gastroesophageal reflux disease Problem 10/11/2020 12:00:00 AM EST [facility] ([facility] [id number] Gallstone acute pancreatitis Gallstone acute pancreati tis Problem 10/11/2020 12:00:00 AM EST [facility] ([facility]) [id number] Chronic diastolic heart failure Chronic diastoli c heart failure Problem 10/11/2020 12:00:00 AM EST [facility] ([facility]) [id number] Arteriosclerosis of coronary artery bypa ss graft Arteriosclerosis of coronary artery bypass graft Problem 10/11/2020 12:00:00 AM EST MEDE NT ([facility]) [id number] Gbqhd-lc-jlbjskx renal failure Dafds-ho-spiqfbk renal failure Problem 10/11/2020 12:00:00 AM EST [facility] ([facility]) B97.29 Coronavirus Covid-19 Infection Coronavirus Covid-19 In fection Problem 09/17/2020 11:07:00 AM EST [facility] ([facility]) B97.29 Coronavirus Covid-19 Infection Coronavirus Covid-19 In [...] fection Problem 09/17/2020 11:07:00 AM EST [facility] B97.29 Coronavirus Covid-19 Infection Coronavirus Covid-19 In fection Problem 09/17/2020 11:07:00 AM EST [place] ([facility]) B97.29 Coronavirus Covid-19 Infection Coronavirus Covid-19 In fection Problem 09/17/2020 11:07:00 AM EST [facility] B97.29 Coronavirus Covid-19 Infection Coronavirus Covid-19 In fection Problem 09/17/2020 11:07:00 AM EST [facility] [facility] B97.29 Coronavirus Covid-19 Infection Coronavirus Covid-19 In fection Problem 09/17/2020 11:07:00 AM EST [facility] [facility] Surgeries/Procedures Procedure Description Date Indications Data Source(s) Summary provided electronically in CCDA format & reasonable certainty of receipt 04/26/2021 12:00:00 AM EDT - 04/26/2021 12:00:00 AM EDT [facility] Clinical summary provided to patient 12:00:00 AM EDT - 04/26/2021 12:00:00 AM EDT [facility] ([facility]) medical regimen review 04/26/2021 12:00: 00 AM EDT - 04/26/2021 12:00:00 AM EDT [facility] ([facility]) continue current medication except where otherwise noted 04/26/2021 12:00:00 AM EDT - 04/26/2021 12:00:00 AM EDT [facility] ([facility]) Hemoglobin; Glycated A1c Hemoglobin; Glycated A1c 04/26/2021 12:00: 00 AM EDT [place] ([facility]) Tdap, Tetanus, Diphtheria Toxoids and Acellular Pertus sis Va Tdap, Tetanus, Diphtheria Toxoids and Acellular Pertussis Va 04/26/2021 12:00:00 AM EDT [place] ([facility]) GLUC BLD GLUC MNTR DEV CLEARED FDA SPEC HOME USE <td>P OCT GLUCOSE</td><td>Routine</td><td>04/09/2021 6:16 PM EDT</td><td></td><td> </td> 04/09/2021 06:16:00 PM EDT [facility] POC GLUCOSE <td>POC GLUCOSE</td><td>Rout ine</td><td>04/09/2021 12:42 PM EDT</td><td></td><td> </td> 04/09/2021 12:42:00 PM EDT [facility] POCT POTASSIUM <td>POCT POTASSIUM</td><td>R outine</td><td>04/09/2021 12:42 PM EDT</td><td></td><td> </td> 04/09/2021 12:42:00 PM EDT [facility] BLOOD COUNT HEMATOCRIT <td>POCT HEMATOCRIT</td><td> Routine</td><td>04/09/2021 12:42 PM EDT</td><td></td><td> </td> 04/09/2021 12:42:00 PM EDT [facility] GLUC BLD GLUC MNTR DEV CLEARED FDA SPEC HOME USE <td>P OCT GLUCOSE</td><td>Routine</td><td>04/09/2021 12:17 PM EDT</td><td></td><td> </td> 04/09/2021 12:17:00 PM EDT [facility] Anastomosis Arteriovenous Direct Any Site 04/09/2021 1 2:00:00 AM EDT [facility] ([facility]) ECG ROUTINE ECG W/LEAST 12 LDS TRCG ONLY W/O I&R <td>E CG 12- LEAD</td><td>Routine</td><td>04/05/2021 10:37 AM EDT</td><td> End stage renal disease</td><td></td> 04/05/2021 10:37:32 AM EDT End stage renal disease [facility] End stage renal disease BLOOD COUNT COMPLETE AUTOMATED <td>CBC</td><td>Routine </td><td>04/05/2021 10:30 AM EDT</td><td> End stage renal disease</td><td> </td> 04/05/2021 10:30:00 AM EDT End stage renal disease [facility] End stage renal disease HEMOGLOBIN GLYCOSYLATED A1C <td>HEMOGLOBIN A1C</td><td>Routine</td><td>04/05/2021 10:30 AM EDT</td><td> End stage renal disease</td><td> </td> 04/05/2021 10:30:00 AM EDT End stage renal disease [facility] End stage renal disease BASIC METABOLIC PANEL CALCIUM TOTAL <td>BASIC METABOLI C PANEL</td><td>Routine</td><td>04/05/2021 10:30 AM EDT</td><td> End stage renal disease</td><td> </td> 04/05/2021 10:30:00 AM EDT End stage renal disease [facility] End stage renal disease 2019 NCOV AMPLIFIED <td>2019 NCOV AMPLIFIED</td> <td>STAT</td><td>04/05/2021 8:55 AM EDT</td><td> COVID-19</td><td> </td> 04/05/2021 08:55:00 AM EDT COVID-19 [facility] COVID-19 DUPLEX SCAN EXTRACRANIAL ART COMPL BI STUDY 02/01/2021 12:00:00 AM EDT [facility] ([facility]) Summary provided electronically in CCDA format [...] - 12/24/2020 12:00:00 AM EDT [place] ([facility]) drug and/or alcohol abuse structured scr eening [...] EDT</td><td> Cholecystitis</td><td></td> 12/15/2020 11:10:00 AM EDT Cholecystitis [facility] Cholecystitis Summary provided electronically in CCDA [...] EDT - 10/27/2020 12:00:00 AM EDT [facility] POCT GLUCOSE, DOCKED <td>POCT GLUCOSE, DOCKED</td ><td>Routine</td><td>10/18/2020 12:31 PM EST</td><td></td><td> </td> 10/18/2020 12:31:00 PM [facility] POCT GLUCOSE, DOCKED <td>POCT GLUCOSE, DOCKED</td ><td>Routine</td><td>10/18/2020 8:45 AM EST</td><td></td><td> </td> 10/18/2020 08:45:00 AM [facility] BLOOD COUNT COMPLETE AUTO&AUTO DIFRNTL WBC COUNT <td>C BC AND DIFFERENTIAL</td><td>Routine</td><td>10/18/2020 3:52 AM EST</td><td></td><td> </td> 10/18/2020 03:52:00 AM [facility] MAGNESIUM <td>MAGNESIUM LEVEL</td><td> Routine</td><td>10/18/2020 3:52 AM EST</td><td></td><td> </td> 10/18/2020 03:52:00 AM [facility] HEPATIC FUNCTION PANEL <td>HEPATIC FUNCTION PANEL A</td><td>Routine</td><td>10/18/2020 3:52 AM EST</td><td></td><td> </td> 10/18/2020 03:52:00 AM [facility] BASIC METABOLIC PANEL CALCIUM TOTAL <td>BASIC METABOLI C PANEL</td><td>Routine</td><td>10/18/2020 3:52 AM EST</td><td></td><td> </td> 10/18/2020 03:52:00 AM [facility] GLUCOSE QUANTITATIVE BLOOD XCPT REAGENT STRIP <td>POCT GLUCOSE, DOCKED</td><td>Routine</td><td>10/17/2020 9:32 PM EST</td><td></td><td> </td> 10/17/2020 09:32:00 PM [facility] GLUCOSE QUANTITATIVE BLOOD XCPT REAGENT STRIP <td>POCT GLUCOSE, DOCKED</td><td>Routine</td><td>10/17/2020 5:16 PM EST</td><td></td><td> </td> 10/17/2020 05:16:00 PM [facility] INF AGENT DET NUCLEIC ACID CLOSTRIDIUM AMP PROBE <td>C LOSTRIDIUM DIFFICILE TOXIN</td><td>Routine</td><td>10/17/2020 1:10 PM EST</td><td></td><td> </td> 10/17/2020 01:10:00 PM [facility] GLUCOSE QUANTITATIVE BLOOD XCPT REAGENT STRIP <td>POCT GLUCOSE, DOCKED</td><td>Routine</td><td>10/17/2020 12:17 PM EST</td><td></td><td> </td> 10/17/2020 12:17:00 PM [facility] GLUCOSE QUANTITATIVE BLOOD XCPT REAGENT STRIP <td>POCT GLUCOSE, DOCKED</td><td>Routine</td><td>10/17/2020 8:25 AM EST</td><td></td><td> </td> 10/17/2020 08:25:00 AM [facility] BLOOD COUNT COMPLETE AUTOMATED <td>CBC AND DIFFERENTIAL</td><td>Routine</td><td>10/17/2020 2:06 AM EST</td><td></td><td> </td> 10/17/2020 02:06:00 AM [facility] MAGNESIUM <td>MAGNESIUM LEVEL</td><td> Routine</td><td>10/17/2020 2:06 AM EST</td><td></td><td> </td> 10/17/2020 02:06:00 AM [facility] HEPATIC FUNCTION PANEL <td>HEPATIC FUNCTION PANEL A</td><td>Routine</td><td>10/17/2020 2:06 AM EST</td><td></td><td> </td> 10/17/2020 02:06:00 AM [facility] BASIC METABOLIC PANEL CALCIUM TOTAL <td>BASIC METABOLI C PANEL</td><td>Routine</td><td>10/17/2020 2:06 AM EST</td><td></td><td> </td> 10/17/2020 02:06:00 AM [facility] GLUCOSE QUANTITATIVE BLOOD XCPT REAGENT STRIP <td>POCT GLUCOSE, DOCKED</td><td>Routine</td><td>10/16/2020 8:46 PM EST</td><td></td><td> </td> 10/16/2020 08:46:00 PM [facility] GLUCOSE QUANTITATIVE BLOOD XCPT REAGENT STRIP <td>POCT GLUCOSE, DOCKED</td><td>Routine</td><td>10/16/2020 4:34 PM EST</td><td></td><td> </td> 10/16/2020 04:34:00 PM [facility] GLUCOSE QUANTITATIVE BLOOD XCPT REAGENT STRIP <td>POCT GLUCOSE, DOCKED</td><td>Routine</td><td>10/16/2020 12:13 PM EST</td><td></td><td> </td> 10/16/2020 12:13:00 PM [facility] XR CHEST FRONTAL ONLY [id number] <td>XR CHEST FRONTAL ONLY [id number]</td><td>Routine</td><td>10/16/2020 11:42 AM EST</td><td></td><td> </td> 10/16/2020 11:42:34 AM [facility] GLUCOSE QUANTITATIVE BLOOD XCPT REAGENT STRIP <td>POCT GLUCOSE, DOCKED</td><td>Routine</td><td>10/16/2020 8:22 AM EST</td><td></td><td> </td> 10/16/2020 08:22:00 AM [facility] MAGNESIUM <td>MAGNESIUM LEVEL</td><td> Routine</td><td>10/16/2020 3:52 AM EST</td><td></td><td> </td> 10/16/2020 03:52:00 AM [facility] BASIC METABOLIC PANEL CALCIUM TOTAL <td>BASIC METABOLI C PANEL</td><td>Routine</td><td>10/16/2020 3:52 AM EST</td><td></td><td> </td> 10/16/2020 03:52:00 AM [facility] GLUCOSE QUANTITATIVE BLOOD XCPT REAGENT STRIP <td>POCT GLUCOSE, DOCKED</td><td>Routine</td><td>10/15/2020 9:10 PM EST</td><td></td><td> </td> 10/15/2020 09:10:00 PM [facility] GLUCOSE QUANTITATIVE BLOOD XCPT REAGENT STRIP <td>POCT GLUCOSE, DOCKED</td><td>Routine</td><td>10/15/2020 4:33 PM EST</td><td></td><td> </td> 10/15/2020 04:33:00 PM [facility] GLUCOSE QUANTITATIVE BLOOD XCPT REAGENT STRIP <td>POCT GLUCOSE, DOCKED</td><td>Routine</td><td>10/15/2020 12:16 PM EST</td><td></td><td> </td> 10/15/2020 12:16:00 PM [facility] GLUCOSE QUANTITATIVE BLOOD XCPT REAGENT STRIP <td>POCT GLUCOSE, DOCKED</td><td>Routine</td><td>10/15/2020 8:17 AM EST</td><td></td><td> </td> 10/15/2020 08:17:00 AM [facility] NATRIURETIC PEPTIDE <td>PROBNP</td><td>Routine</ td><td>10/15/2020 3:52 AM EST</td><td></td><td> </td> 10/15/2020 03:52:00 AM [facility] BLOOD COUNT COMPLETE AUTO&AUTO DIFRNTL WBC COUNT <td>C BC AND DIFFERENTIAL</td><td>Routine</td><td>10/15/2020 3:52 AM EST</td><td></td><td> </td> 10/15/2020 03:52:00 AM [facility] TROPONIN QUANTITATIVE <td>TROPONIN T</td><td>Routi ne</td><td>10/15/2020 3:52 AM EST</td><td></td><td> </td> 10/15/2020 03:52:00 AM [facility] PHOSPHORUS INORGANIC <td>PHOSPHORUS LEVEL</td><td >Routine</td><td>10/15/2020 3:52 AM EST</td><td></td><td> </td> 10/15/2020 03:52:00 AM [facility] MAGNESIUM <td>MAGNESIUM LEVEL</td><td> Routine</td><td>10/15/2020 3:52 AM EST</td><td></td><td> </td> 10/15/2020 03:52:00 AM [facility] LIPASE <td>LIPASE LEVEL</td><td>Rou ady</td><td>10/15/2020 3:52 AM EST</td><td></td><td> </td> 10/15/2020 03:52:00 AM [facility] HEPATIC FUNCTION PANEL <td>HEPATIC FUNCTION PANEL A</td><td>Routine</td><td>10/15/2020 3:52 AM EST</td><td></td><td> </td> 10/15/2020 03:52:00 AM [facility] BASIC METABOLIC PANEL CALCIUM TOTAL <td>BASIC METABOLI C PANEL</td><td>Routine</td><td>10/15/2020 3:52 AM EST</td><td></td><td> </td> 10/15/2020 03:52:00 AM [facility] EKG 12-LEAD - CMAXX REPORT <td>EKG 12-LEAD - CMAXX REPORT</td><td></td><td>10/15/2020 3:34 AM EST</td><td></td><td></td> 10/15/2020 03:34:50 AM [facility] EKG 12-LEAD - CMAXX REPORT <td>EKG 12-LEAD - CMAXX REPORT</td><td></td><td>10/15/2020 3:34 AM EST</td><td></td><td></td> 10/15/2020 03:34:50 AM [facility] EKG 12-LEAD <td>EKG 12-LEAD</td><td>STAT </td><td>10/15/2020 3:34 AM EST</td><td></td><td> </td> 10/15/2020 03:34:50 AM [facility] GLUCOSE QUANTITATIVE BLOOD XCPT REAGENT STRIP <td>POCT GLUCOSE, DOCKED</td><td>Routine</td><td>10/14/2020 9:04 PM EST</td><td></td><td> </td> 10/14/2020 09:04:00 PM [facility] GLUCOSE QUANTITATIVE BLOOD XCPT REAGENT STRIP <td>POCT GLUCOSE, DOCKED</td><td>Routine</td><td>10/14/2020 4:47 PM EST</td><td></td><td> </td> 10/14/2020 04:47:00 PM [facility] GLUCOSE QUANTITATIVE BLOOD XCPT REAGENT STRIP <td>POCT GLUCOSE, DOCKED</td><td>Routine</td><td>10/14/2020 1:45 PM EST</td><td></td><td> </td> 10/14/2020 01:45:00 PM [facility] CUL BACT XCPT URINE BLOOD/STOOL AEROBIC ISOL <td>BILE CULTURE</td><td>Routine</td><td>10/14/2020 1:30 PM EST</td><td></td><td> </td> 10/14/2020 01:30:00 PM [facility] CHOLECYSTOSTOMY PRQ W/IMAGING & CATH PLMT <td>IR PERCU TANEOUS CHOLECYSTOSTOMY TUBE INSERTION</td><td>Routine</td><td>10/14/2020 1:24 PM EST</td><td></td><td> </td> 10/14/2020 01:24:49 PM [facility] BODY FLUID CULTURE AND GRAM STAIN <td>BODY FLUID CULTU RE AND GRAM STAIN</td><td>Routine</td><td>10/14/2020 1:10 PM EST</td><td></td><td> </td> 10/14/2020 01:10:00 PM [facility] GLUCOSE QUANTITATIVE BLOOD XCPT REAGENT STRIP <td>POCT GLUCOSE, DOCKED</td><td>Routine</td><td>10/14/2020 12:52 PM EST</td><td></td><td> </td> 10/14/2020 12:52:00 PM [facility] XR CHEST FRONTAL ONLY [id number] <td>XR CHEST FRONTAL ONLY [id number]</td><td>Routine</td><td>10/14/2020 10:41 AM EST</td><td></td><td> </td> 10/14/2020 10:41:49 AM [facility] GLUCOSE QUANTITATIVE BLOOD XCPT REAGENT STRIP <td>POCT GLUCOSE, DOCKED</td><td>Routine</td><td>10/14/2020 9:18 AM EST</td><td></td><td> </td> 10/14/2020 09:18:00 AM [facility] GLUCOSE QUANTITATIVE BLOOD XCPT REAGENT STRIP <td>POCT GLUCOSE, DOCKED</td><td>Routine</td><td>10/14/2020 5:25 AM EST</td><td></td><td> </td> 10/14/2020 05:25:00 AM [facility] PROTHROMBIN TIME <td>PROTIME INR</td><td>Rout ine</td><td>10/14/2020 3:56 AM EST</td><td></td><td> </td> 10/14/2020 03:56:00 AM [facility] BLOOD COUNT COMPLETE AUTO&AUTO DIFRNTL WBC COUNT <td>C BC AND DIFFERENTIAL</td><td>Routine</td><td>10/14/2020 3:56 AM EST</td><td></td><td> </td> 10/14/2020 03:56:00 AM [facility] LIPASE <td>LIPASE LEVEL</td><td>Rou ady</td><td>10/14/2020 3:56 AM EST</td><td></td><td> </td> 10/14/2020 03:56:00 AM [facility] HEPATIC FUNCTION PANEL <td>HEPATIC FUNCTION PANEL A</td><td>Routine</td><td>10/14/2020 3:56 AM EST</td><td></td><td> </td> 10/14/2020 03:56:00 AM [facility] BASIC METABOLIC PANEL CALCIUM TOTAL <td>BASIC METABOLI C PANEL</td><td>Routine</td><td>10/14/2020 3:56 AM EST</td><td></td><td> </td> 10/14/2020 03:56:00 AM [facility] GLUCOSE QUANTITATIVE BLOOD XCPT REAGENT STRIP <td>POCT GLUCOSE, DOCKED</td><td>Routine</td><td>10/14/2020 12:09 AM EST</td><td></td><td> </td> 10/14/2020 12:09:00 AM [facility] GLUCOSE QUANTITATIVE BLOOD XCPT REAGENT STRIP <td>POCT GLUCOSE, DOCKED</td><td>Routine</td><td>10/13/2020 5:58 PM EST</td><td></td><td> </td> 10/13/2020 05:58:00 PM [facility] MRI ABDOMEN W/O CONTRAST MATERIAL <td>MR BILIARY TREE MRCP [id number]</td><td>Routine</td><td>10/13/2020 4:42 PM EST</td><td></td><td> </td> 10/13/2020 04:42:13 PM [facility] GLUCOSE QUANTITATIVE BLOOD XCPT REAGENT STRIP <td>POCT GLUCOSE, DOCKED</td><td>Routine</td><td>10/13/2020 2:00 PM EST</td><td></td><td> </td> 10/13/2020 02:00:00 PM [facility] GLUCOSE QUANTITATIVE BLOOD XCPT REAGENT STRIP <td>POCT GLUCOSE, DOCKED</td><td>Routine</td><td>10/13/2020 9:12 AM EST</td><td></td><td> </td> 10/13/2020 09:12:00 AM [facility] CREATININE OTHER SOURCE <td>URINE RANDOM TP/CRE RATIO</td><td>Routine</td><td>10/13/2020 5:15 AM EST</td><td></td><td> </td> 10/13/2020 05:15:00 AM [facility] BLOOD COUNT COMPLETE AUTO&AUTO DIFRNTL WBC COUNT <td>C BC AND DIFFERENTIAL</td><td>Routine</td><td>10/13/2020 5:15 AM EST</td><td></td><td> </td> 10/13/2020 05:15:00 AM [facility] PHOSPHORUS INORGANIC <td>PHOSPHORUS LEVEL</td><td >Routine</td><td>10/13/2020 5:15 AM EST</td><td></td><td> </td> 10/13/2020 05:15:00 AM [facility] MAGNESIUM <td>MAGNESIUM LEVEL</td><td> Routine</td><td>10/13/2020 5:15 AM EST</td><td></td><td> </td> 10/13/2020 05:15:00 AM [facility] LIPASE <td>LIPASE LEVEL</td><td>Rou ady</td><td>10/13/2020 5:15 AM EST</td><td></td><td> </td> 10/13/2020 05:15:00 AM [facility] HEPATIC FUNCTION PANEL <td>HEPATIC FUNCTION PANEL A</td><td>Routine</td><td>10/13/2020 5:15 AM EST</td><td></td><td> </td> 10/13/2020 05:15:00 AM [facility] BASIC METABOLIC PANEL CALCIUM TOTAL <td>BASIC METABOLI C PANEL</td><td>Routine</td><td>10/13/2020 5:15 AM EST</td><td></td><td> </td> 10/13/2020 05:15:00 AM [facility] GLUCOSE QUANTITATIVE BLOOD XCPT REAGENT STRIP <td>POCT GLUCOSE, DOCKED</td><td>Routine</td><td>10/13/2020 5:09 AM EST</td><td></td><td> </td> 10/13/2020 05:09:00 AM [facility] GLUCOSE QUANTITATIVE BLOOD XCPT REAGENT STRIP <td>POCT GLUCOSE, DOCKED</td><td>Routine</td><td>10/13/2020 1:06 AM EST</td><td></td><td> </td> 10/13/2020 01:06:00 AM [facility] GLUCOSE QUANTITATIVE BLOOD XCPT REAGENT STRIP <td>POCT GLUCOSE, DOCKED</td><td>Routine</td><td>10/12/2020 9:18 PM EST</td><td></td><td> </td> 10/12/2020 09:18:00 PM [facility] IAAD EIA MULT STEP METHOD NOS EACH ORGANISM <td>LEGION MT ANTIGEN, URINE</td><td>Routine</td><td>10/12/2020 7:41 PM EST</td><td></td><td> </td> 10/12/2020 07:41:00 PM [facility] GLUCOSE QUANTITATIVE BLOOD XCPT REAGENT STRIP <td>POCT GLUCOSE, DOCKED</td><td>Routine</td><td>10/12/2020 6:05 PM EST</td><td></td><td> </td> 10/12/2020 06:05:00 PM [facility] US RETROPERITONEAL REAL TIME W/IMAGE COMPLETE <td>US R ENAL OR AORTA COMPLETE [id number]</td><td>Routine</td><td>10/12/2020 4:25 PM EST</td><td></td><td> </td> 10/12/2020 04:25:35 PM [facility] HEPATOBILIARY SYST IMAGING INCLUDING GALLBLADDER <td>N M HEPATOBILIARY IMAGING HIDA [id number]</td><td>STAT</td><td>10/12/2020 3:48 PM EST</td><td></td><td> </td> 10/12/2020 03:48:45 PM [facility] TROPONIN QUANTITATIVE <td>TROPONIN T</td><td>Routi ne</td><td>10/12/2020 1:59 PM EST</td><td></td><td> </td> 10/12/2020 01:59:00 PM [facility] BASIC METABOLIC PANEL CALCIUM TOTAL <td>BASIC METABOLI C PANEL</td><td>Routine</td><td>10/12/2020 1:59 PM EST</td><td></td><td> </td> 10/12/2020 01:59:00 PM [facility] GLUCOSE QUANTITATIVE BLOOD XCPT REAGENT STRIP <td>POCT GLUCOSE, DOCKED</td><td>Routine</td><td>10/12/2020 1:54 PM EST</td><td></td><td> </td> 10/12/2020 01:54:00 PM [facility] ECHO TTHRC R-T 2D W/WOM-MODE COMPL SPEC&COLR DOP <td>E CHOCARDIOGRAM 2D COMPLETE</td><td>STAT</td><td>10/12/2020 10:53 AM EST</td><td></td><td></td> 10/12/2020 10:53:56 AM [facility] ECHO TTHRC R-T 2D W/WOM-MODE COMPL SPEC&COLR DOP <td>E CHOCARDIOGRAM 2D COMPLETE</td><td>STAT</td><td>10/12/2020 10:21 AM EST</td><td></td><td></td> 10/12/2020 10:21:05 AM [facility] ECHO TTHRC R-T 2D W/WOM-MODE COMPL SPEC&COLR DOP <td>E CHOCARDIOGRAM 2D COMPLETE</td><td>Routine</td><td>10/12/2020 10:12 AM EST</td><td></td><td> </td> 10/12/2020 10:12:42 AM [facility] GLUCOSE QUANTITATIVE BLOOD XCPT REAGENT STRIP <td>POCT GLUCOSE, DOCKED</td><td>Routine</td><td>10/12/2020 10:00 AM EST</td><td></td><td> </td> 10/12/2020 10:00:00 AM [facility] HEPATITIS C ANTIBODY <td>HEPATITIS C ANTIBODY</td ><td>Routine</td><td>10/12/2020 6:07 AM EST</td><td></td><td> </td> 10/12/2020 06:07:00 AM [facility] PROTHROMBIN TIME <td>PROTIME INR</td><td>Rout ine</td><td>10/12/2020 6:07 AM EST</td><td></td><td> </td> 10/12/2020 06:07:00 AM [facility] BLOOD COUNT COMPLETE AUTO&AUTO DIFRNTL WBC COUNT <td>C BC AND DIFFERENTIAL</td><td>Routine</td><td>10/12/2020 6:07 AM EST</td><td></td><td> </td> 10/12/2020 06:07:00 AM [facility] TROPONIN QUANTITATIVE <td>TROPONIN T</td><td>Timed </td><td>10/12/2020 6:07 AM EST</td><td></td><td> </td> 10/12/2020 06:07:00 AM [facility] LIPASE <td>LIPASE LEVEL</td><td>Rou ady</td><td>10/12/2020 6:07 AM EST</td><td></td><td> </td> 10/12/2020 06:07:00 AM [facility] BILIRUBIN DIRECT <td>BILIRUBIN, DIRECT</td><t d>Routine</td><td>10/12/2020 6:07 AM EST</td><td></td><td> </td> 10/12/2020 06:07:00 AM [facility] COMPREHENSIVE METABOLIC PANEL <td>COMPREHENSIVE METABO LIC PANEL</td><td>Routine</td><td>10/12/2020 6:07 AM EST</td><td></td><td> </td> 10/12/2020 06:07:00 AM [facility] GLUCOSE QUANTITATIVE BLOOD XCPT REAGENT STRIP <td>POCT GLUCOSE, DOCKED</td><td>Routine</td><td>10/12/2020 6:04 AM EST</td><td></td><td> </td> 10/12/2020 06:04:00 AM [facility] GLUCOSE QUANTITATIVE BLOOD XCPT REAGENT STRIP <td>POCT GLUCOSE, DOCKED</td><td>Routine</td><td>10/12/2020 1:59 AM EST</td><td></td><td> </td> 10/12/2020 01:59:00 AM [facility] TROPONIN QUANTITATIVE <td>TROPONIN T</td><td>Timed </td><td>10/11/2020 11:58 PM EST</td><td></td><td> </td> 10/11/2020 11:58:00 PM [facility] GLUCOSE QUANTITATIVE BLOOD XCPT REAGENT STRIP <td>POCT GLUCOSE, DOCKED</td><td>Routine</td><td>10/11/2020 10:18 PM EST</td><td></td><td> </td> 10/11/2020 10:18:00 PM [facility] URNLS DIP STICK/TABLET REAGENT AUTO MICROSCOPY <td>URI NALYSIS WITH REFLEX URINE CULTURE</td><td>Routine</td><td>10/11/2020 9:30 PM EST</td><td></td><td> </td> 10/11/2020 09:30:00 PM [facility] UREA NITROGEN URINE <td>UREA NITROGEN, URINE</td ><td>Routine</td><td>10/11/2020 9:30 PM EST</td><td></td><td> </td> 10/11/2020 09:30:00 PM [facility] SODIUM URINE <td>SODIUM, URINE, RANDOM</t d><td>Routine</td><td>10/11/2020 9:30 PM EST</td><td></td><td> </td> 10/11/2020 09:30:00 PM [facility] CREATININE OTHER SOURCE <td>CREATININE, URINE, RANDOM</td><td>Routine</td><td>10/11/2020 9:30 PM EST</td><td></td><td> </td> 10/11/2020 09:30:00 PM [facility] CULTURE BACTERIAL BLOOD AEROBIC W/ID ISOLATES <td>BLOO D CULTURE</td><td>Routine</td><td>10/11/2020 9:30 PM EST</td><td></td><td> </td> 10/11/2020 09:30:00 PM [facility] LACTATE <td>LACTIC ACID LEVEL, PLASM A</td><td>STAT</td><td>10/11/2020 9:30 PM EST</td><td></td><td> </td> 10/11/2020 09:30:00 PM [facility] BLOOD GASES ANY COMBINATION PH PCO2 PO2 CO2 HCO3 <td>B LOOD GAS, VENOUS</td><td>STAT</td><td>10/11/2020 9:30 PM EST</td><td></td><td> </td> 10/11/2020 09:30:00 PM [facility] CULTURE BACTERIAL BLOOD AEROBIC W/ID ISOLATES <td>BLOO D CULTURE</td><td>Routine</td><td>10/11/2020 9:23 PM EST</td><td></td><td> </td> 10/11/2020 09:23:00 PM [facility] XR CHEST FRONTAL ONLY [id number] <td>XR CHEST FRONTAL ONLY [id number]</td><td>Routine</td><td>10/11/2020 9:21 PM EST</td><td></td><td> </td> 10/11/2020 09:21:44 PM [facility] EKG ED PHYSICIAN INTERPRETATION <td>EKG ED PHYSICIAN INTERPRETATION</td><td>Routine</td><td>10/11/2020 9:20 PM EST</td><td></td><td> </td> 10/11/2020 09:20:00 PM [facility] EKG 12-LEAD - CMAXX REPORT <td>EKG 12-LEAD - CMAXX REPORT</td><td></td><td>10/11/2020 9:13 PM EST</td><td></td><td></td> 10/11/2020 09:13:49 PM [facility] EKG 12-LEAD - CMAXX REPORT <td>EKG 12-LEAD - CMAXX REPORT</td><td></td><td>10/11/2020 9:13 PM EST</td><td></td><td></td> 10/11/2020 09:13:49 PM [facility] EKG 12-LEAD <td>EKG 12-LEAD</td><td>STAT </td><td>10/11/2020 9:13 PM EST</td><td></td><td> </td> 10/11/2020 09:13:49 PM [facility] EKG 12-LEAD - CMAXX REPORT <td>EKG 12-LEAD - CMAXX REPORT</td><td></td><td>10/11/2020 9:13 PM EST</td><td></td><td></td> 10/11/2020 09:13:00 PM [facility] RESPIRATORY PATHOGEN PANEL <td>RESPIRATORY PATHOGEN PANEL</td><td>Routine</td><td>10/11/2020 7:41 PM EST</td><td></td><td> </td> 10/11/2020 07:41:00 PM [facility] COVID-19 PCR <td>COVID-19 PCR</td><td>Rou ady</td><td>10/11/2020 7:41 PM EST</td><td></td><td> </td> 10/11/2020 07:41:00 PM [facility] ULTRASOUND ABDOMINAL REAL TIME W/IMAGE LIMITED <td>US ABDOMEN LIMITED [id number]</td><td>Routine</td><td>10/11/2020 7:34 PM EST</td><td></td><td> </td> 10/11/2020 07:34:33 PM [facility] BLOOD COUNT COMPLETE AUTO&AUTO DIFRNTL WBC COUNT <td>C BC AND DIFFERENTIAL</td><td>Routine</td><td>10/11/2020 6:03 PM EST</td><td></td><td> </td> 10/11/2020 06:03:00 PM [facility] BLOOD TYPING ABO <td>TYPE AND SCREEN</td><td> STAT</td><td>10/11/2020 6:03 PM EST</td><td></td><td> </td> 10/11/2020 06:03:00 PM [facility] TROPONIN QUANTITATIVE <td>TROPONIN T</td><td>STAT< /td><td>10/11/2020 6:03 PM EST</td><td></td><td> </td> 10/11/2020 06:03:00 PM [facility] TRIGLYCERIDES <td>TRIGLYCERIDES</td><td>Ro utine</td><td>10/11/2020 6:03 PM EST</td><td></td><td> </td> 10/11/2020 06:03:00 PM [facility] PHOSPHORUS INORGANIC <td>PHOSPHORUS LEVEL</td><td >Routine</td><td>10/11/2020 6:03 PM EST</td><td></td><td> </td> 10/11/2020 06:03:00 PM [facility] MAGNESIUM <td>MAGNESIUM LEVEL</td><td> Routine</td><td>10/11/2020 6:03 PM EST</td><td></td><td> </td> 10/11/2020 06:03:00 PM [facility] LIPASE <td>LIPASE LEVEL</td><td>STA T</td><td>10/11/2020 6:03 PM EST</td><td></td><td> </td> 10/11/2020 06:03:00 PM [facility] HEMOGLOBIN GLYCOSYLATED A1C <td>HEMOGLOBIN A1C</td><td>Routine</td><td>10/11/2020 6:03 PM EST</td><td></td><td> </td> 10/11/2020 06:03:00 PM [facility] HEPATIC FUNCTION PANEL <td>HEPATIC FUNCTION PANEL A</td><td>STAT</td><td>10/11/2020 6:03 PM EST</td><td></td><td> </td> 10/11/2020 06:03:00 PM [facility] BASIC METABOLIC PANEL CALCIUM TOTAL <td>BASIC METABOLI C PANEL</td><td>STAT</td><td>10/11/2020 6:03 PM EST</td><td></td><td> </td> 10/11/2020 06:03:[address] [facility] code for distant site telehealt h services (Synchronous telemedicine service rendered via real-time interactive audio and video telecommunication system) [facility] code for distant site telehealt h services (Synchronous telemedicine service rendered via real-time interactive audio and video telecommunication system) 09/17/2020 12:00:00 AM EST CARMEN Mckeon ([facility]) Therapy noncompliance due to lack of comprehension The rapy noncompliance due to lack of comprehension 06/08/2020 12:00:00 AM EDT M[facility]DIS[facility] ([facility]) [facility] code for distant site telehealt h services (Synchronous telemedicine service rendered via real-time interactive audio and video telecommunication system, Cost Sharing) [facility] code for distant site telehealt h services (Synchronous telemedicine service rendered via real-time interactive audio and video telecommunication system, Cost Sharing) 05/12/2020 12:00:00 AM EDT M[facility]DIS[facility] (Jina) Results ID Date Data Source [id number] 06/07/2021 01:10:00 PM EDT [facility] Card[facility] [address], [address] [place] [address] [facility] Cardiology Note : [id number] Signed Patient: Lory Winkler Jr Acct:[id number] Visit Date: 06/07/21 : 1945 cc: Carolyn Elizondo Dr., Dr. Cardiology HPI History of present illness History of present illness: Mr. Lory Winlker is a pleasant 76-year-old gentleman who returns [...] our office, Mr. Winkler was admitted to [facility] with worsening renal failure. He was admitted in December of 2020. A Panm-t-weeeopgu was placed and Mr. Robert underwent hemodialysis [...] No other complaints stated at this time. 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 Surgical [...] I25.10 - Atherosclerotic heart di sease of [place] coronary artery without angina pectoris (2) Status post percutaneous transluminal angioplasty (OIL FIELD CASER): Code(s): Z98.62 - Peripheral vascular angioplasty status [...] DAILY Discontinued hydralazine Discontinued Reason: *Provider Requested (,DO,SOLE LEATHER CUTTING MACHINE OPERATOR,PA) 25 mg PO TID Problems Did you [...] on 06/07/2021. Coding Level of Care Code 94390 Estab Pt Level 4 History Detailed Exam Detailed Diagnoses CAD (coronary artery disease) I25.10 Status post percutaneous transluminal angioplasty (OIL FIELD CASER) Z98.62 Status post coronary artery bypass grafting Z95.1 H ypertension I10 Diastolic heart failure I50.30 Hyperlipidemia E78.5 Type 2 diabetes mellitus E11.9 Peripheral vascular disease I73.9 Chronic renal insufficiency, stage V N18.5 Signed By:Durga De Leon MD <<Signature on File>> Signed Date/Time: 06/08/21 0702 Co-Signer: Co-Signed Date/Time: Initializing User: Durga De Leon MD 1309 09 09 Name Value Range Interpretation Code Description Data Jazmín rce(s) Supporting Document(s) ID Date Data Source [id number] 04/26/2021 12:00:00 AM [facility] ([employer]) Name Value Range Interpretation Code Description Data Jazmín rce(s) Supporting Document(s) Hemoglobin A1c/Hemoglobin.total in Blood 6.2 Normal Hgb A1c M[facility]DIS[facility] (Jina) ID Date Data Source [id number] 04/25/2021 06:42:52 AM [facility]T [facility] MRN Name Date of Age Gend*PT [id number] Lory Winkler Jr. 1945 76 years M SDCPT Location Admission Date/Time Visit ID Attending ProviderPERIOP POOL 04/09/21 1126 --- --- EPI ID CSN Admitting Pro vider [id number] Iris Perdomo MD([id number]) [place] [address] OPERATIVE REPORT OPNAME: LORY WINKLER JR.#: [id number] #: [id number] ADMISSION DATE: 04/09/2021OB: 1945 SEX: M PT TYPE: H VascACCT #: [id number] CARE PHYSICIAN: ASHLEY ROJAS OF OPERATION: 04/09/2021IAGNOSIS:End-stage renal disease.PROCEDURE:Left arm AV fistula formation.SURGEON:Iris Perdomo MD.AGRICULTURAL PLOW OPERATOR:DYAN Garcia.ANESTHESIA:LMA with supplemental local.DESCRIPTION OF PROCEDURE:With the [...] to recovery room stable.BRE Cesar/NTS Job #: [id number] DOC #: [id number]: Dialysis Unit Name Value Range Interpretation Code Description Data Jazmín rce(s) Supporting Document(s) ID Date Data Source [id number] 04/09/2021 06:29:51 PM EDT [facility] Name Value Range Interpretation Code Description Data Jazmín rce(s) Supporting Document(s) POC NOVA GLU 127 mg/dL (70-99) H [facility] [place] [facility] [place] [facility] ID Date Data Source [id number] 04/09/2021 04:13:09 PM EDT [facility] INFORMATIONPatient MRN Name Date of Age Gend*PT [id number] Lory Winkler Jr. 1945 76 years M SDCPT Location Admission Date/Time Visit ID [facility]/09/21 1126 --- Sanchez Cesar([id number]) EPI ID CSN Admitting Provider [id number] Iris Perdomo MD([id number])esrd risk avf bleeding nerve ischemia explained Name Value Range Interpretation Code Description Data Jazmín rce(s) Supporting Document(s) ID Date Data Source [id number] 04/09/2021 12:46:51 PM EDT [facility] Name Value Range Interpretation Code Description Data Jazmín rce(s) Supporting Document(s) POC POTASSIUM 4.2 MMOL/L (3.6-5.2) [facility] ID Date Data Source [id number] 04/09/2021 12:46:51 PM EDT [facility] Name Value Range Interpretation Code Description Data Jazmín rce(s) Supporting Document(s) POC GLU 76 MG/DL (70-99) [facility] ID Date Data Source [id number] 04/09/2021 12:46:51 PM EDT [facility] Name Value Range Interpretation Code Description Data Jazmín rce(s) Supporting Document(s) POC HCT 32 % (41.0-53.0) L [facility] ID Date Data Source [id number] 04/09/2021 12:56:11 PM EDT [facility] Name Value Range Interpretation Code Description Data Jazmín rce(s) Supporting Document(s) POC NOVA GLU 75 mg/dL (70-99) [facility] [place] [facility] ID Date Data Source [id number] 04/05/2021 10:52:24 AM EDT [facility]FORMATIONPatient MRN Name Date of Age Gend*PT [id number] Lory Winkler Jr. 1945 76 years M OPPT Location Admission Date/Time Visit ID Attending Provider --- --- --- Iris Perdomo MD ([id number]) EPI ID CSN Admitting Provider [id number] ---OUTPATIENT / OBSERVATIONAL SURGICAL OR INVASIVE PROCEDUREName: Lory Winkler Jr. : 1945 Sex: male Care Provider: Ezequiel DURHAMending Physician: Dr. Perdomo.HISTORY OF PRESENT ILLNESS: 76 years old male . He has a complex medicalhistory. He has end-stage renal disease. [facility] is now electing for AV [...] neuropathy Strabismic amblyopia of left eye Tuberculosis Uncmv-Rhfubsynk-Ylltn (WPW) syndromePAST SURGICAL HISTORY:Past Surgical History:Procedure Laterality [...] SCOPIC, LIVER BIOPSY; Surgeon:Gabriel Gil MD; Location: [facility]; Service: Bariatric; Laterality:N/A; MULTIPLE TOOTH EXTRACTIONS PANENDOSCOPY N/A 05/17/2016 Procedure: ENDOSCOPY WITH H PYLORI BIOPSY W ANESTHESIA; Surgeon: MD Efraín; Location: [facility]; Service: Gastroenterology;Laterality: N/A; PermCath RightALLERGIES:AllergiesAllergen [...] Take 1 tabletby mouth daily Historical Provider, Lnyettearvedilol (COREG) 25 MG tablet Take 25 mg [...] tablet Take 300 mg by mouth nightly HistoricalProviderIváninoxidil (LONITEN) 2.5 MG tablet Take 2.5 mg by mouth 2 (two) times a dayHistorical Provider, IVÁNultiple Vitamins-Minerals (Multivitamin Adult) CHEW Chew 2 tablets once dailyHistorical Provider, nitroglycerin (NITROSTAT) 0.[address] 0.4 [...] 81 mg by mouth daily 06/09/16 04/05/21 Maday Velascosulin glargine (INSULIN GLARGINE) 100 UNIT/ML injection Inject [...] thyromegaly. No carotid bruits.MENTAL / NEUROLOGICAL STATUS: [id number]: Clear to auscultation. No wheezes, rhonchi or [...] of AV fistula left upper extremity.04/05/2021 10:51 AMKathleen Ashley, NPThis document or parts of this document, were dictated using [employer]ueSpot speaking software. A reasonable attempt at proofreading has beenmade to minimize errors. Please call with any questions or corrections.* Name Value Range Interpretation Code Description Data Jazmín rce(s) Supporting Document(s) ID Date Data Source [id number] 04/05/2021 10:48:54 AM EDT [facility] Name Value Range Interpretation Code Description Data [facility] Supporting Document(s) EKG [facility] [id number] [file] [id number]== ID Date Data Source [id number] 04/05/2021 04:29:11 PM EDT [facility] Name Value Range Interpretation Code Description Data Jazmín rce(s) Supporting Document(s) HEMOGLOBIN A1C @ 6.2 % (4.0-6.0) H [facility] Performed using Siemens [place] immunoassa y.Care must be taken when interpreting IqA4ulcdzdty in patients with a hemoglobin variantor decreased erythrocyte lifespan. Values 5.7 - 6.4% suggest prediabetes.Values >=6.5% are diagnostic for diabetes.REFERENCE: DIABETES CARE 2018: 41(S13-S27). EST AVERAGE GLUCOSE 131 mg/dL [facility] ID Date Data Source [id number] 04/05/2021 03:53:39 PM EDT [facility] Name Value Range Interpretation Code Description Data Jazmín rce(s) Supporting Document(s) SODIUM 139 mmol/L (136-145) [facility] POTASSIUM 4.1 mmol/L (3.6-5.2) [facility] CHLORIDE 103 mmol/L (100-108) [facility] CO2 27 mmol/L (22-31) [facility] ANION GAP 9 mmol/L (7-16) [facility] UREA NITROGEN 41 mg/dL (7-24) H [facility] CREATININE 5.91 mg/dL (0.80-1.30) H [facility] RESULT VERIFIED BY REPEAT TESTING.RESULT (S) CALLED TO AND READ BACK BYHAYDEN AT [id number] ON [id number] AT 1551 [place] [id number]. BUN/CREAT RATIO 6.9 RATIO (10.0-20.0) L [facility] GLUCOSE 142 mg/dL (70-99) H [facility] CALCIUM 8.5 mg/dL (8.4-10.2) [facility] GFR 9 ml/min/1.73m2 (>59) L [facility] [place] [facility] GFR ( AMER) 11 ml/min/1.73m2 (>59) L [facility] GFR INTERPRETATION [facility] --NORMAL KIDNEY FUNCTION OR MILD DISEASE - GFR >OR= 60CHRONIC KIDNEY DISEASE - GFR 15 - 59RENAL FAILURE - GFR <15 Est. GFR calculation based on the MDRDstudy equation, which assumes a steadystate for creatinine. Est. GFR should notbe used for medication dosing. ID Date Data Source [id number] 04/05/2021 02:58:47 PM EDT [facility] Name Value Range Interpretation Code Description Data Jazmín rce(s) Supporting Document(s) WBC 7.7 10*3/uL (4.1-11.0) [facility] [place] [facility] [place] RBC 3.26 10*6/uL (4.60-6.10) L [facility] HGB 11.0 g/dL (13.5-18.0) L [facility] HCT 32.9 % (41.0-53.0) L [facility] MCV 101.1 fL (80.0-95.0) H [facility] MCH 33.8 pg (27.0-32.0) H [facility] MCHC 33.5 g/dL (32.0-36.0) [facility] RDW 15.6 % (10.5-14.5) H [facility] PLT 186 10*3/uL (150-450) [facility] MPV 9.3 fL (7.1-10.7) [facility] ID Date Data Source [id number] 04/05/2021 08:55:00 AM EDT [facility] Name Value Range Interpretation Code Description Data Jazmín rce(s) Supporting Document(s) SARS coronavirus 2 RNA [Presence] in Res piratory specimen by MATHEW with probe detection NOT DETECTED [facility] This lab was reported by [facility]. ID Date Data Source [id number] 04/05/2021 02:36:23 PM EDT [facility] praneeth FREEMAN Name Value Range Interpretation Code Description Data Jazmín rce(s) Supporting Document(s) SPECIMEN DESCRIPTION [facility] COVID 19 RESULT (NDET) [facility] [place] [facility] NEGATIVE COVID-19 RESULTS DONOT PRECLUDE COVID-2019 INFECTION ANDSHOULD NOT BE USED THE SOLE BASISFOR PATIENT MANAGEMENT DECISIONS. COMMENT [facility] ANGEL THE [place] FDA HAS MADE THIS TEST AVAILABL EUNDER AN EMERGENCY USE AUTHORIZATION(EUA) FOR THE DETECTION AND/OR DIAGNOSISOF THE VIRUS THAT CAUSES COVID-19.THIS ASSAY AMPLIFIES AND DETECTS TARGETDNA USING PUBLIC HEALTH NUTRITIONIST- MEDIATEDAMPLIFICATIONTESTING PERFORMED ON OpenQ PANTHER FIRST TEST Lab [place] [employer] IN HLTHCARE Lab [facility] [place] SYMPTOMATIC [facility] [place] DATE OF SYMPT ONSET Lab [facility] [place] HOSPITALIZED Lab [place] [facility] [place] CONGREGATE CARE SET Lab [facility] [place] Lab [place] [facility] [place] ID Date Data Source [id number] 02/01/2021 12:06:00 PM EDT [facility] ([facility] Name Value Range Interpretation Code Description Data Jazmín rce(s) Supporting Document(s) Carotid Ultrasound Bilateral Laboratory test result [facility] ([facility]) ID Date Data Source [id number] 01/06/2021 02:55:00 PM EDT [facility] Name Value Range Interpretation Code Description Data Jazmín rce(s) Supporting Document(s) SARS coronavirus 2 RNA [Presence] in Res piratory specimen by [facility]W with [facility] ordered by [facility] a nd reported by [facility]. ID Date Data Source [id number] 01/01/2021 11:47:06 AM EDT [facility] Name Value Range Interpretation Code Description Data Jazmín rce(s) Supporting Document(s) Progress Note [facility] [id number]/NUDquNFBoy2VbPBtsXOn1CYhoESUsA2VxZEQ5rY2tDDS6VHlMFhYtNnElIRVu lbm [file] AgICAgICAgICAgICAgICAgICAgICAgICAgICAgICAgICAgICAgICAgICAgICAgICAgICAgICAgICAgIC AgICAgICAgICAgICAgICANCiAgICAgICAgICAgICAgICAgICAgICAgICAgICAgICAgICAgICAgICAgIC AgICAgICAgICAgICAgICAgICAgICAgICAgICAgICAg ICAgICAgICAgICAgICAgICAgICAgICAgICANCiAgICAgICAgICAgICAgICAgICAgICAgICAgICAgICAg ICAgICAgICAgICAgICAgICAgICAgICAgICAgICAgICAgICAgICAgICAgICAgICAgICAgICAgICAgICAg ICAgICAgICANCiAgICAgICAgICAgICAgICAgICAgIC AgICAgICAgICAgICAgICAgICAgICAgICAgICAgICAgICAgICAgICAgICAgICAgICAgICAgICAgICAgIC AgICAgICAgICAgICAgICAgICANCiAgICAgICAgICAgICAgICAgICAgICAgICAgICAgICAgICAgICAgIC AgICAgICAgICAgICAgICAgICAgICAgICAgICAgICAg ICAgICAgICAgICAgICAgICAgICAgICAgICAgICANCiAgICAgICAgICAgICAgICAgICAgICAgICAgICAg ICAgICAgICAgICAgICAgICAgICAgICAgICAgICAgICAgICAgICAgICAgICAgICAgICAgICAgICAgICAg ICAgICAgICAgICANCiAgICAgICAgICAgICAgICAgIC AgICAgICAgICAgICAgICAgICAgICAgICAgICAgICAgICAgICAgICAgICAgICAgICAgICAgICAgICAgIC AgICAgICAgICAgICAgICAgICAgICANCiAgICAgICAgICAgICAgICAgICAgICAgICAgICAgICAgICAgIC AgICAgICAgICAgICAgICAgICAgICAgICAgICAgICAg ICAgICAgICAgICAgICAgICAgICAgICAgICAgICAgICANCiAgICAgICAgICAgICAgICAgICAgICAgICAg ICAgICAgICAgICAgICAgICAgICAgICAgICAgICAgICAgICAgICAgICAgICAgICAgICAgICAgICAgICAg ICAgICAgICAgICAgICANCiAgICAgICAgICAgICAgIC AgICAgICAgICAgICAgICAgICAgICAgICAgICAgICAgICAgICAgICAgICAgICAgICAgICAgICAgICAgIC AgICAgICAgICAgICAgICAgICAgICAgICANCjw/jPKdR8mdeUWtcpL2N2biKx1AXa6GED5rc1YaBBFfMO lvptWkVgmOZbQeXQGaSbvXMdu8EHkgKA4HjXJbX4Hd Z3YwVYxfAH4AJWZkXUTbcJNiTZTcVAPlRpD3DHZwCLktOY8BkXYsYZibIYCaHBFnEoDnRHAeYMPvYLBd MUDwDFJTEFVsHMCoHhIqJLycEQ1Jv5XamUS0LIw+Ak8VLC3sd9TmZSemZHKfBP7hzb2JEBeEJjQpX7Nn lnQ1MIRmCEQzMq9VPTVxCNRziOCmWHXlBEQMMsPwK7 SgqW91JCTSAa5+TJtaqcQsCmmLZsGvRSSru9YcIOw0ZC0ILVWoAMz8dSRrCHFhC4Uec0RgKo15JWTgQm pxLJgkmTUywETCSY0zP7AlvEZmtfbgQSLsOUToJW0wJE2xOPEuSCTwSaX2WNPNWB3NUZStZYAzeHQdGE VbUROAOQ2XLWseUWP7CUQeizMulOSlRNnxIZ0QQQBd bnQgMzAgMCBSDQo+Du7AJG0ef3HqBPyeCrZnDF9nfl9MPXaXJgKiH2W5wUWyS7V5WZluLk6GGXReKKRm NljvQMAZBLzzUC9LLO9nrdP2EO1QeBNcICRnXMUnfLDzZLk4Z00gfOFfONhuPO6WCPR+Shawn+Gb6WEHBu XJKvHDHyPiIjRIMJAxWfI5IhZ3KCx4PrR8PtLJ08zO bhdoHpFQojHT4HYK0kQZJsJJRDRD9UuONdvM8cyhPaYRWuUOXUPlEeX95xuUQmQOJcDKC3EMAlDw3YFV KlR2RdyvZohZzdzpVaSEWoMUCYOL3NIUrfieObgSMdcLgvMT17cOaiKD8RJs0WTfDqHA3jfo5QoHUqIa 1ICIVfUv8RCLPgVGUlHWJmQKM5UVFoVeEpLUyuYNLk ANTeKBK0RPRaKVVgRL8TAsEbSGYuAhQ0OoSvLIOvDSNyio2NOQDzKERuItVeHdIvJJYjFFIxSMvsKOSd PLDxWXE1QSMnDDSsUO0BIuTbFGRdSSD1MvFgYDGmXVZfev0NZBWnJPPyBpvxHVHxCXBnOVKoSWfgOQLt OCQ9UENbXSXoLAAkIW4GXgTrECWtHAusUYDaFPAgQH Cmat4ZEQYeFIYvAOr6ZuTmBOGxPAJbQLbbZIOsEPYkOFctQCUsIJZiFJ0CZtUpRBMfTGS5JKrhQHQfKT Fkkm6VWHPzRSFgZfN6HCMdNGTcXUSsIQmkLHWhFCJ3LAj5MAWcIDMpLM9MAvFuPASwOUYmBVFiCZRlAH Xtlh6ZDPDbQUGiQcK7XFElTEDgFUXiMNgkCJMxHFT4 WxL5ORYuSIQiDY0MZiLpJHCkIKV8RjEtPIPpGAThbj3BVWYhFBKbMlJ8HKNiOHPuUZUfQQinCZMoESD0 UmgsLPFhYJOwJL5ZKzYzTKIrSZr7DXXbTSNqYAEleg6ALRZjASObAYEaMVByLHJsXMWnGKyzEHYzHJZ7 TfL8KVMhIAOoKU2JXhAkQBSgIhk5UFGdVOChICHaig 2NWXDxRUIcBEF4FCUyWYSrRKNqOVjsHPBuSJVqYqKvYVInNLGhEF1VSiEgLCFuDyJiFCWfGDTmJLBdkm 4UCPJpZAQuZVL0HnOyXDRcBTCwPSvdSVKqMFPrYIQiEKHxHIYtAV9NMaRrPUIwWtO8BprqBVQdYHLsnc 0KMDAwMDAzMzQzMSAwMDAwMCBuDQowMDAwMDMzNTAy EAXiDFLvME6TKqBuBVDzEqA0VNDrIZKiZULfsp9TjKNgmMfbnk2PCZcEQy2VvDgoNCMvARqnNu2mhDLx TfLxUMMTPb6PjgEhIQCxZJHSAVhjLLRzIDIrACT0BAAzQdA7IlZsXxFaXBOoOtAkRYZ6TPD0FRslPhB9 W3NnAbx3KmXhIbKdZaByBQOwTtZ6UuDxIDObDAjsGB I+VY5iLBb+Gx8Kg0FbowU5ynTgUMfaChodLP2VIQWQN0HRZm== ID Date Data Source [id number] 12/24/2020 06:48:00 PM EDT [facility] Name Value Range Interpretation Code Description Data Jazmín rce(s) Supporting Document(s) CREAT RANDOM URINE 69.9 MG/DL [facility] No Normal Ranges Available for this Pro cedure. MICROALBUMIN,URINE 208.0 MG/L [facility] MICROALBUM/CREATININE RATIO,UR 297.7 UG/MG CR 0.0-30.0 H [facility] ID Date Data Source [id number] 12/24/2020 11:40:00 AM EDT [facility]) Name Value Range Interpretation Code Description Data Jazmín rce(s) Supporting Document(s) Hemoglobin A1c/Hemoglobin.total in Blood 5.6 Normal Hgb A1c MADDISON (Jina) ID Date Data Source [id number] 12/16/2020 01:38:46 PM EDT [facility] IR PERCUTANEOUS CHOLECYSTOSTOMY TUBE INS ERTIONFINAL RESULTInterpreted by:Glo Sánchez MDPROCEDURE: CHOLANGIOGRAM.HISTORY: 75-year-old male with history of percutaneous [...] was prepped and draped with sterile technique. Creative Specialist image demonstrates right percutaneous cholecystostomy drain in [...] rce(s) Supporting Document(s) ID Date Data Source [id number] 12/11/2020 01:06:00 PM EDT [facility] Name Value Range Interpretation Code Description Data Jazmín rce(s) Supporting Document(s) SARS-CoV-2 RNA 2019 nCoV Real-Time RT-PCR: NOT DETECTED [facility] This lab was ordered by [facility] and reported by [facility]. ID Date Data Source [id number] 12/11/2020 07:19:25 PM EDT [facility] Name Value Range Interpretation Code Description Data Jazmín rce(s) Supporting Document(s) Specimen source [Identifier] of Unspecified specimen [facility] SARS-CoV-2 RNA 2019 nCoV Real-Time RT-PCR: NOT DETECTED [facility] Assay Performed [facility] Patients first test for condition [facility] 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 [facility] Patient has symptoms related to condition [facility] When did you start to experience these symptoms [Date and time] [Phen X] [facility] Patient was hospitalized because of this condition [facility] patient was admitted to ICU for condition [facility] Patient resides in a congregate care setting [facility] status [facility] ID Date Data Source [id number] 12/11/2020 01:05:20 PM EDT [facility] Name Value Range Interpretation Code Description Data Jazmín rce(s) Supporting Document(s) Progress Note [facility] STVTPg1gLgTQNaNu60/ERAsfGLVfp9PjCRczRCi7MVeuFBDpX2VyUBN2uW5gGDN0XXnQMxVhGfYiAQXo lbm [file] edge gluer+I0IpHI6+eVOQ4gNtL6hCQn+QY32hqUqK0DY7224ijgh15qhhRwHA17Yuua/sF+/m2yXkyav51r+t6 [file] ICAgICAgICAgICAgICAgICAgICAgICAgICAgICAgIC SyXNDaMFFiRCIcFQRyANJkLVUoSGIwJA6EILSwTQEqFKFpALCpRCIxMAUiRYSfEGZkLGAmXCNdMLSpSA AgICAgICAgICAgICAgICAgICAgICAgICAgICAgICAgICAgICAgICAgICAgICAgICAgICAgICAgICAgIC BbEETePI3RSNBrXUNhICWjDSOoNRHkAEYwIHNtCJMm ICAgICAgICAgICAgICAgICAgICAgICAgICAgICAgICAgICAgICAgICAgICAgICAgICAgICAgICAgICAg MPVlMBOqARZxDAKdBHAwQJ9IBIDrKQBxZYRkHGYdSUJmDFMtFBCsWFLvDXPwIZPrEFQeIKVoHRQuEJUd ICAgICAgICAgICAgICAgICAgICAgICAgICAgICAgIC EjXPJcFNHjSCGrYLYkOAXtCDShUVGhOFGvKI2ZGFSuLONhKKMzRTQdEUBrISFcJFXoCDBjHGJcEVAfNT AgICAgICAgICAgICAgICAgICAgICAgICAgICAgICAgICAgICAgICAgICAgICAgICAgICAgICAgICAgIC VsCVHhYHAcYD8VSFTgSFOqCOGvBLMvPIHaGXJpTRQi ICAgICAgICAgICAgICAgICAgICAgICAgICAgICAgICAgICAgICAgICAgICAgICAgICAgICAgICAgICAg EEDuFHEjSVKmXAQvTWUeSJJrES3PAVCsKIAkBDGxNACbOGOvRCMkZNJiSBUdXOIpSNMeNJWsHAPaXCTc ICAgICAgICAgICAgICAgICAgICAgICAgICAgICAgIC RkXZTuQAEdGSEnBHKoKHEzWMSxRWNaPUBhNWPbSW6PZIMtFGIaAETaIUFvABNxGLWsVRWkKBGiTRIwHM AgICAgICAgICAgICAgICAgICAgICAgICAgICAgICAgICAgICAgICAgICAgICAgICAgICAgICAgICAgIC KrTTRoXSIyZJGuCF5ETHGuBXIlTRFaPLJlJHYrWYTo ICAgICAgICAgICAgICAgICAgICAgICAgICAgICAgICAgICAgICAgICAgICAgICAgICAgICAgICAgICAg UOHdMXKmMJLjMVKmOGFfGOTmBQDzKH1WHOLqTRFiCVItCWZuVMAjEJKfNQDvVOQmQRZjXPLxGQTgDYFr ICAgICAgICAgICAgICAgICAgICAgICAgICAgICAgIC JxKAAeWJYdANZdSFKgAHIrDKGgVWDlFVMtGTWfIARbFR2LEL57gWLbv2T4STNjWC4suqs/Sy0XZFyssk RjwNFgZA8KVrPeDP0vei2QArUgQX7mru6XCSsPVkCjQ2H4wLRnOAOzIKSWXcYuF88oWWjeOt20QJqlFB AvWpVfWRn6Vz0NUmVnX5lhVZZrTtW2VWXnDrNxGRwc TZ9Gm2VrcIGfKMc+Cy5TWF7qq9FhFVcpGVXmPC3ibo2ALRoXUgLuG4LffeV9YWPmOHXkZt2EQGDbZTUu yNAbUFJsKZJZXlVxF2XoyJ10OYNFRr8+NMjqsiRmNmaJBfYvMJBvb6SqDZt1HJ9MACQoKZw0sVElGNFj Y7Fvo1KyTg22CPBcCbizYmTnkpOuXGDQkaceY4NozW arEa1dAETrEC7kUG8dLQUfLDPeInLqRGNJPH9XTSGlQJXwfMVaUVEzABWBRQ2UDPwzLKM6IPLopcEsbC VeYJwiWV0UQEEeixEqONhrLJNZJWl+Tn2OBH3si9BoUOcbBPQxYP8tep0JFKmSZtYeB3D8vPIsV0S0BO maQk2EZUDaYJBcPNfrXWTOZIyyPB9IAU6wdzP8PV9M uWPkTHYkIGNbgLCnCTi4H71trGDrGXdbFR8EFDA+Shawn+Wn9NPTJqCEWzMPRgRvGvNEYLKzZwY7XrL3RP a8PrQ0FkNN95lFucocUwONqaEB7BKT7mUTDhSPJPCI8LpDMwwQ2mmyXxTLRkWTMDXwUxU05izEYpRQLu HUZ2QKWzFb3ROKScH0MdikGfgVsnxzZsIJPhMIQINT 4NNGwieiVjdZPhhKaeMQ90qUpfNN1CQp6LUtCnYQ5tvg6OoCZyXj7MVZTxVq3FZKCjLLRxSYIbWSY9SN PlXvUzBKzhCTYhCUMhUUJ9YETfHBXjRV5OAqVpDSJwWRytZMWnDSGtWXXatb1RQFMgORCkWFNuNYAyKD VyRGLdWAwmGIDpXVUxGCU7BXWbPRLkFS1MDqAyPWAz HOHmTfYvUYRhIXBivr8PIBObFFUzOeCkQpXoNSMqOMCgFCzpDCHpNWKiGrh6FTXlQEWvVD3ICaAxJAXn EPP6PMGoLOXnBVAukb9LNADkTMTvRuG7SLRwWPKoTYSnAZscOFNpVRV7EsE1JTQgKACbFX7YVlBjHFOx EOV0JvAbYCKwBQGwwj5CLIIdBWYgTFVqIKHdYFAgDP HgESmmCVCbVHB2YuLkPBCdDBDmSQ4ONcSjHEVlTMT2OougDBSxCADxqa8UYBFlFPKiQfd0ARVbBBMhTA OcEQuvFANzWKJ5GFG2XNWdOOXcTU7FVdZmLZMrQUhtCaCrCRMjDHJmia9LVLZjLIIqXdM0KJYiCIMrGU WvCEkmVPMeJZU0XDDhNFRlDECsID1OMeCvDZRnEGrt UPHzVYTjJTUcmu7GNXVsCNMfHRYlCESuWYFfFYYoHJi6ztHojYPeZRr4UA9HB5KyhlRnZyFSAm3Kz422 RZRwLOTgCj8OM8jlNl6yRVDqZJLWLu3JFNr3ZTK7JDJ8XJZoWSpcEvUgFGJ5NovwDme5WZP6LqPwRHV+ XUq1QdijMeSvN2L4LEH0SJRpAPt6SQX4NUQjPrvgT2 AlAl1kDVMYKt8+YIlegCTubKjfLCPUMxU1QWb0XBmsBZFXGt8Y ID Date Data Source [id number] 11/26/2020 04:27:[address] [facility] Name Value Range Interpretation Code Description Data Jazmín rce(s) Supporting Document(s) Progress Note [facility] REUZQy0cRvWHBcYo96/NVNjhFKBqq9XgGAkcZMu6MJprEZGkC1ZnXHR6wZ9oSYF8VSkVJlVjSgXhIMB4 lbm [file] 5IQERPS8RRVm== ID Date Data Source [id number] 11/25/2020 12:34:00 PM EDT [facility] Cardiology [address] [place] [address], [address] [place] [address] Cardiology Note : [id number] Signed Patient: Lory Winkler Jr Acct:[id number] Visit Date: 11/25/20 : 1945 Cardiology HPI History of present illness History of present illness: Mr. Lory Winkler is a pleasant 75-year-old gentleman [facility] . He was last evaluated [...] to [facility] in [place], [place] in October of 2020 with [...] has a biliary drain in place. Mr. Winkler reports that from a cardiac point, he [...] states last month he was admitted at [facility] for issues with his gallbladder. 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 He currently has a biliary drain in place. At this time, I recommend that we continue to promote the importance of lifestyle intervention through nutrition, weight management, and exercise. I have asked Mr. Winkler to avoid seasoning hisfoods with salt, to avoid processed foods, to avoid simple carbohydrates, and to avoid qor-ciyqqkgcrrnqq-dckrfvhdyhqb drugs. For now, I recommend to continue [...] oncologist is Dr. Janae Roberts and his teller is Dr. Nellie Guevara. Mr. Winkler has [...] disease) I25.10 Status post percutaneous transluminal angioplasty (OIL FIELD CASER) Z98.62 Status post coronary artery bypass grafting [...] rce(s) Supporting Document(s) ID Date Data Source [id number] 10/18/2020 05:11:31 PM EST [facility] Name Value Range Interpretation Code Description Data Jazmín rce(s) Supporting Document(s) Discharge Summary [facility] WRFTKr0qNwUWNyUu11/SPTsuCXIcs4QfSGezKIq1TSksYBCkD7DgBEG7fZ7wWCE1IJbIUyXfLwKdLcU5 lbm AiBhiDNiMkHFYlNzgBOkZmYSlvLvshcRFqJF2JrKD4UNHqO70fBQPoLISsQ1RhXTCvPFw+Ny7RTOTwuD EnPF1UOlkO1V0wc8pFSf4+sJ0DDtvd6NEPfUFx/uYmaXyHs+vabosC/wEMaQ1YfflK9UL//lNhMZuV0c vTzYDYIG6QzmMjpF99rlBJmty//hpDAdO0xad/rf+M ElddzdTf/8hzxju8/An2J5oUnGO4iYGPS4Z/scxOL890OCscAclHdy7mw20kGZs+zs70krpvePOnRr+O N2zD3e94YN6Ri+wBl64IL0QLTs7i/pRrh0uEV0Z2E/B0A6WkDU48Tpf1jzzSRmDxc40vrMXC9K7rVvw6 wsRHZ9H25SWLhTKJu9vE/BvbIIhRgql9G/j091URhe 1bzp3pguMYN1K9p4XuImpyVKhZEhujW10c3trVy4sN9K3Bhv7ywvCRP5nPd0m7DAHxHNUqteQzAh35iR 0scjUIc+C8yMVJsT9QP2uTTZwxtA9cbzkXuejjvL3oz4o/zXfATR1ALnwqFUSJThI2HU9qOl4+9409Ug meG1w59LrGkqzKyXZ1Qeda/bKtYdUD2BEhz8clvS5c jlwXd0zuf5LD3dB6RuSgzF6E/V+785fPJyd7W8LzvDe/uRdeBdpjWXg02HNFhk+Ta1fs08w1Obt81qXg i1lxFY7WuB7gJdAdbYkzxJ6OfuVyaPcojRnEYnEferiPRljO1iOYvoWc65fH5YcaTKEX489PwPrrVAiK xWfmfmGy4FogcP5FJiGBdkJexexncUSCtSOacFsQ90 /Veena/GkY3DwKPqysbxxoiCwutozY5Tv4fMI9iIZ5aV0cnQuJ8q4A3gnktqInR0W12ucY/V5dR+4PWCqE [file] rBquDGCZViU9QmQ2JIimEHNNIb7T ID Date Data Source [id number] 10/18/2020 12:44:29 PM [facility] Value Range Interpretation Code Description Data Jazmín rce(s) Supporting Document(s) Glucose [Mass/volume] in Capillary blood by Glucometer 155 mg/dL 70- 140 H [facility] ID Date Data Source [id number] 10/18/2020 08:50:30 AM [facility] Value Range Interpretation Code Description Data Jazmín rce(s) Supporting Document(s) Glucose [Mass/volume] in Capillary blood by Glucometer 119 mg/dL 70- 140 [facility] ID Date Data Source [id number] 10/18/2020 04:35:49 AM [facility] Value Range Interpretation Code Description Data Jazmín rce(s) Supporting Document(s) Albumin [Mass/volume] in Serum or Plasma by Bromocresol green (BCG) dye binding method 3.1 g/dL 3.5-[facility].2 [facility] Bilirubin.total [Mass/volume] in Serum or Plasma 0.8 mg/dL <1.2 [facility] Bilirubin.direct [Mass/volume] in Serum or Plasma 0.5 mg/dL <0.3 H [facility] Alkaline phosphatase [Enzymatic activity/volume] in Serum or Plasma 116 U/L 40-129 [facility] Aspartate aminotransferase [Enzymatic activity/volume] in Serum or Plasma 31 U/L <40 [facility] Alanine aminotransferase [Enzymatic activity/volume] in Seru m or Plasma 62 U/L <41 H [facility] Protein [Mass/volume] in Serum or Plasma 5.9 g/dL 6.4-8.3 L [facility] ID Date Data Source [id number] 10/18/2020 04:35:49 AM [facility] Value Range Interpretation Code Description Data Jazmín rce(s) Supporting Document(s) Magnesium [Mass/volume] in Serum or Plasma 1.9 mg/dL 1.6-2.4 [facility] ID Date Data Source [id number] 10/18/2020 04:35:49 AM [facility] Name Value Range Interpretation Code Description Data Jazmín rce(s) Supporting Document(s) Bicarbonate [Moles/volume] in Serum 21 mmol/L 22-29 L [facility] Chloride [Moles/volume] in Serum or Plasma 102 mmol/L 98-107 [facility] Creatinine [Mass/volume] in Serum or Plasma 2.88 mg/dL 0.70-1.20 H [facility] Glucose [Mass/volume] in Serum or Plasma 122 mg/dL 70-140 [facility] Potassium [Moles/volume] in Serum or Plasma 3.6 mmol/L 3.4-5.1 [facility] Sodium [Moles/volume] in Serum or Plasma 136 mmol/L 136-145 [facility] Urea nitrogen [Mass/volume] in Serum or Plasma 43 mg/dL 8-23 H [facility] Anion gap 3 in Serum or Plasma 13 mmol/L 8-15 [facility] Osmolality of Serum or Plasma by calculation 294 mosm/kg 275-300 [facility] Creatinine/Urea nitrogen [Mass Ratio] in Serum or Plasma 15 [facility] Calcium [Mass/volume] in Serum or Plasma 8.5 mg/dL 8.8-10.2 L [facility] Glomerular filtration rate/1.73 sq M pre dicted among non-blacks [Volume Rate/Area] in Serum or Plasma by Creatinine-based formula (MDRD) 20 mL/min/1.73m2 >60 L [facility] Glomerular filtration rate/1.73 sq M pre dicted among blacks [Volume Rate/Area] in Serum or Plasma by Creatinine-based formula (MDRD) 23 mL/min/1.73m2 >60 L [facility] ID Date Data Source [id number] 10/18/2020 05:14:53 AM [facility] Name Value Range Interpretation Code Description Data Jazmín rce(s) Supporting Document(s) Leukocytes [#/volume] in Blood by Automated count 12.2 10*3/uL 4-10 H [facility] Erythrocytes [#/volume] in Blood by Automated count 2.60 10*6/uL 4.6- 6.1 [facility] Hemoglobin [Mass/volume] in Blood 8.6 g/dL 13.5-18 L [facility] Hematocrit [Volume Fraction] of Blood by Automated count 26.0 % 4 1-53 L [facility] Erythrocyte mean corpuscular volume [Entitic volume] by Auto mated count 99.8 fL 80-96 H [facility] Erythrocyte mean corpuscular hemoglobin [Entitic mass] by Automated count 33.0 pg 27-33 [facility] Erythrocyte mean corpuscular hemoglobin concentration [Mass/volume] by Automated count 33.1 g/dL 32.0-36.0 [facility] E[facility]throcyte distribution width [Ratio] by Automated count 15.9 % 11.5-14.5 H [facility] Platelets [#/volume] in Blood by Automated count 227 10*3/uL 150-400 [facility] Differential cell count method - Blood [facility] Neutrophils/100 leukocytes in Blood by Automated count 65 % [facility] Lymphocytes/100 leukocytes in Blood by Automated count 22 % [facility] Monocytes/100 leukocytes in Blood by Automated count 4 % [facility] Eosinophils/100 leukocytes in Blood by Automated count 2 % [facility] Basophils/100 leukocytes in Blood by Automated count 2 % [facility] Neutrophils [#/volume] in Blood by Automated count 7.93 10*3/uL 1.8-7 .0 H [facility] Lymphocytes [#/volume] in Blood by Automated count 2.68 10*3/uL 1.2-4 .0 [facility] Monocytes [#/volume] in Blood by Automated count 0.49 10*3/uL 0-0.8 [facility] Eosinophils [#/volume] in Blood by Automated count 0.24 10*3/uL 0-0.5 [facility] Basophils [#/volume] in Blood by Automated count 0.24 10*3/uL 0-0.2 H [facility] Band form neutrophils/100 leukocytes in Blood by Manual count 3 % [facility] Metamyelocytes/100 leukocytes in Blood by Manual count 2 % [facility] Band form neutrophils [#/volume] in Blood by Manual count 0.37 10*3 /uL 0-0.6 [facility] Metamyelocytes [#/volume] in Blood by Manual count 0.24 10*3/uL 0-0 H [facility] Stomatocytes [Presence] in Blood by Light microscopy [facility] ID Date Data Source [id number] 10/17/2020 09:42:11 PM [facility] Name Value Range Interpretation Code Description Data Jazmín rce(s) Supporting Document(s) Glucose [Mass/volume] in Capillary blood by Glucometer 179 mg/dL 70- 140 H [facility] ID Date Data Source [id number] 10/17/2020 05:18:40 PM [facility] Name Value Range Interpretation Code Description Data Jazmín rce(s) Supporting Document(s) Glucose [Mass/volume] in Capillary blood by Glucometer 179 mg/dL 70- 140 H [facility] ID Date Data Source [id number] 10/18/2020 10:36:51 AM [facility] Service Cmnt XXX-Imp : NoneMicroorganism XXX [...] rce(s) Supporting Document(s) ID Date Data Source [id number] 10/17/2020 12:20:15 PM [facility] Name Value Range Interpretation Code Description Data Jazmín rce(s) Supporting Document(s) Glucose [Mass/volume] in Capillary blood by Glucometer 186 mg/dL 70- 140 H [facility] ID Date Data Source [id number] 10/17/2020 08:28:53 AM [facility] Value Range Interpretation Code Description Data Jazmín rce(s) Supporting Document(s) Glucose [Mass/volume] in Capillary blood by Glucometer 149 mg/dL 70- 140 H [facility] ID Date Data Source [id number] 10/17/2020 03:06:31 AM [facility] Value Range Interpretation Code Description Data Jazmín rce(s) Supporting Document(s) Albumin [Mass/volume] in Serum or Plasma by Bromocresol green (BCG) dye binding method 3.5 g/dL 3.5-5.2 [facility] Bilirubin.total [Mass/volume] in Serum or Plasma 1.1 mg/dL <1.2 [facility] Bilirubin.direct [Mass/volume] in Serum or Plasma 0.7 mg/dL <0.3 [facility] Alkaline phosphatase [Enzymatic activity/volume] in Serum or Plasma 145 U/L 40-129 [facility] Aspartate aminotransferase [Enzymatic activity/volume] in Serum or Plasma 33 U/L <40 [facility] Alanine aminotransferase [Enzymatic activity/volume] in Seru m or Plasma 74 U/L <41 [facility] Protein [Mass/volume] in Serum or Plasma 6.6 g/dL 6.4-8.3 [facility] ID Date Data Source [id number] 10/17/2020 03:06:31 AM [facility] Name Value Range Interpretation Code Description Data Jazmín rce(s) Supporting Document(s) Magnesium [Mass/volume] in Serum or Plasma 2.0 mg/dL 1.6-2.4 [facility] ID Date Data Source [id number] 10/17/2020 03:06:31 AM [facility] Name Value Range Interpretation Code Description Data Jazmín rce(s) Supporting Document(s) Bicarbonate [Moles/volume] in Serum 20 mmol/L 22-29 L [facility] Chloride [Moles/volume] in Serum or Plasma 100 mmol/L 98-107 [facility] Creatinine [Mass/volume] in Serum or Plasma 2.78 mg/dL 0.70-1.20 [facility] Glucose [Mass/volume] in Serum or Plasma 142 mg/dL 70-140 [facility] Potassium [Moles/volume] in Serum or Plasma 3.5 mmol/L 3.4-5.1 [facility] Sodium [Moles/volume] in Serum or Plasma 135 mmol/L 136-145 L [facility] Urea nitrogen [Mass/volume] in Serum or Plasma 42 mg/dL 8-23 [facility] Anion gap 3 in Serum or Plasma 15 mmol/L 8-15 [facility] Osmolality of Serum or Plasma by calculation 293 mosm/kg 275-300 [facility] Creatinine/Urea nitrogen [Mass Ratio] in Serum or Plasma 15 [facility] Calcium [Mass/volume] in Serum or Plasma 9.0 mg/dL 8.8-10.2 [facility] Glomerular filtration rate/1.73 sq M pre dicted among non-blacks [Volume Rate/Area] in Serum or Plasma by Creatinine-based formula (MDRD) 21 mL/min/1.73m2 >60 L [facility] Glomerular filtration rate/1.73 sq M pre dicted among blacks [Volume Rate/Area] in Serum or Plasma by Creatinine-based formula (MDRD) 24 mL/min/1.73m2 >60 L [facility] ID Date Data Source [id number] 10/17/2020 04:51:[address] [facility] Name Value Range Interpretation Code Description Data Jazmín rce(s) Supporting Document(s) Leukocytes [#/volume] in Blood by Automated count 11.1 10*3/uL 4-10 [facility] Erythrocytes [#/volume] in Blood by Automated count 3.03 10*6/uL 4.6- 6.1 L [facility] Hemoglobin [Mass/volume] in Blood 10.0 g/dL 13.5-18 L [facility] Hematocrit [Volume Fraction] of Blood by Automated count 30.0 % 4 1-53 L [facility] Erythrocyte mean corpuscular volume [Entitic volume] by Auto mated count 99.0 fL 80-96 [facility] Erythrocyte mean corpuscular hemoglobin [Entitic mass] by Automated count 33.0 pg 27-33 [facility] Erythrocyte mean corpuscular hemoglobin concentration [Mass/volume] by Autom[facility] count 33.4 g/dL [facility].0[facility] distribution width [Ratio] by Automated count 15.6 % 11.5-14.5 [facility] Platelets [#/volume] in Blood by Automated count 238 10*3/uL 150-400 [facility] Differential cell count method - Blood [facility] Neutrophils/100 leukocytes in Blood by Automated count 64 % [facility] Lymphocytes/100 leukocytes in Blood by Automated count 17 % [facility] Monocytes/100 leukocytes in Blood by Automated count 12 % [facility] Eosinophils/100 leukocytes in Blood by Automated count 6 % [facility] Neutrophils [#/volume] in Blood by Automated count 7.10 10*3/uL 1.8-7 .0 [facility] Lymphocytes [#/volume] in Blood by Automated count 1.89 10*3/uL 1.2-4 .0 [facility] Monocytes [#/volume] in Blood by Automated count 1.33 10*3/uL 0-0.8 [facility] Eosinophils [#/volume] in Blood by Automated count 0.67 10*3/uL 0-0.5 [facility] Band form neutrophils/100 leukocytes in Blood by Manual count 1 % [facility] Band form neutrophils [#/volume] in Blood by Manual count 0.11 10*3 /uL 0-0.6 [facility] Anisocytosis [Presence] in Blood by Light microscopy [facility] Poikilocytosis [Presence] in Blood by Light microscopy [facility] ID Date Data Source [id number] 10/16/2020 08:51:52 PM [facility] Name Value Range Interpretation Code Description Data Jazmín rce(s) Supporting Document(s) Glucose [Mass/volume] in Capillary blood by Glucometer 167 mg/dL 70- 140 H [facility] ID Date Data Source [id number] 10/16/2020 04:36:42 PM [facility] Name Value Range Interpretation Code Description Data Jazmín rce(s) Supporting Document(s) Glucose [Mass/volume] in Capillary blood by Glucometer 142 mg/dL 70- 140 [facility] ID Date Data Source [id number] 10/16/2020 02:11:58 PM [facility] XR CHEST FRONTAL ONLY [id number] RESULTI nterpreted by:TANO HarperROCEDURE INFORMATION: Exam: XR Chest Exam date and time: 10/16/2020 11:27 AM Age: 75 years old Clinical indication: Biliary acute pancreatitis without necrosis or infection; Chest pain; Type not specified; Additional info: ? Pulmonary edema TECHNIQUE: Imaging protocol: XR of the chest Views: 1 view. COMPARISON: CR XR CHEST FRONTAL ONLY [id number] PORTABLE 10/14/2020 10:22 AM FINDINGS: Lungs: Unremarkable. [...] rce(s) Supporting Document(s) ID Date Data Source [id number] 10/16/2020 12:18:15 PM [facility] Name Value Range Interpretation Code Description Data Jazmín rce(s) Supporting Document(s) Glucose [Mass/volume] in Capillary blood by Glucometer 212 mg/dL 70- 140 H [facility] ID Date Data Source [id number] 10/16/2020 08:25:53 AM [facility] Name Value Range Interpretation Code Description Data Jazmín rce(s) Supporting Document(s) Glucose [Mass/volume] in Capillary blood by Glucometer 145 mg/dL 70- 140 H [facility] ID Date Data Source [id number] 10/16/2020 04:41:55 AM [facility] Name Value Range Interpretation Code Description Data Jazmín rce(s) Supporting Document(s) Bicarbonate [Moles/volume] in Serum 22 mmol/L 22-29 [facility] Chloride [Moles/volume] in Serum or Plasma 100 mmol/L 98-107 [facility] Creatinine [Mass/volume] in Serum or Plasma 2.79 mg/dL 0.70-1.20 H [facility] Glucose [Mass/volume] in Serum or Plasma 152 mg/dL 70-140 H [facility] Potassium [Moles/volume] in Serum or Plasma 3.7 mmol/L 3.4-5.1 [facility] Sodium [Moles/volume] in Serum or Plasma 135 mmol/L 136-145 L [facility] Urea nitrogen [Mass/volume] in Serum or Plasma 50 mg/dL 8-23 H [facility] Anion gap 3 in Serum or Plasma 14 mmol/L 8-15 [facility] Osmolality of Serum or Plasma by calculation 296 mosm/kg 275-300 [facility] Creatinine/Urea nitrogen [Mass Ratio] in Serum or Plasma 18 [facility] Calcium [Mass/volume] in Serum or Plasma 8.6 mg/dL 8.8-10.2 L [facility] Glomerular filtration rate/1.73 sq M pre dicted among non-blacks [Volume Rate/Area] in Serum or Plasma by Creatinine-based formula (MDRD) 21 mL/min/1.73m2 >60 L [facility] Glomerular filtration rate/1.73 sq M pre dicted among blacks [Volume Rate/Area] in Serum or Plasma by Creatinine-based formula (MDRD) 24 mL/min/1.73m2 >60 L [facility] ID Date Data Source [id number] 10/16/2020 04:41:55 AM [facility] Name Value Range Interpretation Code Description Data Jazmín rce(s) Supporting Document(s) Magnesium [Mass/volume] in Serum or Plasma 1.9 mg/dL 1.6-2.4 [facility] ID Date Data Source [id number] 10/15/2020 09:16:40 PM [facility] Name Value Range Interpretation Code Description Data Jazmín rce(s) Supporting Document(s) Glucose [Mass/volume] in Capillary blood by Glucometer 238 mg/dL 70- 140 H [facility] ID Date Data Source [id number] 10/15/2020 08:50:14 PM [facility] Name Value Range Interpretation Code Description Data Jazmín rce(s) Supporting Document(s) [facility] WIEASv6sQsLMGdSr34/KZZozKINkl2XyRJrcXAr2MMgfJTGeT9QeRCQ9gC7jCBZ4HLtYZyGcIeTfTkU5 lbm [file] ICAgICAgICAgICAgICAgICAgICAgICAgICAgICAgICAgICAgICAgICAgICAgICAgICAgICAgICAgICAg ICAgICAgICAgICANCiAgICAgICAgICAgICAgICAgIC AgICAgICAgICAgICAgICAgICAgICAgICAgICAgICAgICAgICAgICAgICAgICAgICAgICAgICAgICAgIC AgICAgICAgICAgICAgICAgICAgICANCiAgICAgICAgICAgICAgICAgICAgICAgICAgICAgICAgICAgIC AgICAgICAgICAgICAgICAgICAgICAgICAgICAgICAg ICAgICAgICAgICAgICAgICAgICAgICAgICAgICAgICANCiAgICAgICAgICAgICAgICAgICAgICAgICAg ICAgICAgICAgICAgICAgICAgICAgICAgICAgICAgICAgICAgICAgICAgICAgICAgICAgICAgICAgICAg ICAgICAgICAgICAgICANCiAgICAgICAgICAgICAgIC AgICAgICAgICAgICAgICAgICAgICAgICAgICAgICAgICAgICAgICAgICAgICAgICAgICAgICAgICAgIC AgICAgICAgICAgICAgICAgICAgICAgICANCiAgICAgICAgICAgICAgICAgICAgICAgICAgICAgICAgIC AgICAgICAgICAgICAgICAgICAgICAgICAgICAgICAg ICAgICAgICAgICAgICAgICAgICAgICAgICAgICAgICAgICANCiAgICAgICAgICAgICAgICAgICAgICAg ICAgICAgICAgICAgICAgICAgICAgICAgICAgICAgICAgICAgICAgICAgICAgICAgICAgICAgICAgICAg ICAgICAgICAgICAgICAgICANCiAgICAgICAgICAgIC AgICAgICAgICAgICAgICAgICAgICAgICAgICAgICAgICAgICAgICAgICAgICAgICAgICAgICAgICAgIC AgICAgICAgICAgICAgICAgICAgICAgICAgICANCiAgICAgICAgICAgICAgICAgICAgICAgICAgICAgIC AgICAgICAgICAgICAgICAgICAgICAgICAgICAgICAg ICAgICAgICAgICAgICAgICAgICAgICAgICAgICAgICAgICAgICANCiAgICAgICAgICAgICAgICAgICAg ICAgICAgICAgICAgICAgICAgICAgICAgICAgICAgICAgICAgICAgICAgICAgICAgICAgICAgICAgICAg ICAgICAgICAgICAgICAgICAgICANCjw/iRMyN1gnnV DefgL4G0qxYa9NZk9NAW5cu2UnSMFwETbxnaIfSpjLZzDrBVKyCixMOid4GVarXB3SsUIfL2LnF4StIC pcKV2VUKJjPGCdmVJiPOJeKNFhGtB9VPZfZGvlHP3KhZUkRJtvGKDgADQiJeMbBSZoXIUeSVRsHKFxNP SZADCeNRTvSnLiFWrwFB6Lz1XbqOV1LJv+Ar6YPT0o u6OjMUxyXsWlVQ4oah1SVZlGHfHvL3EcbzV9NWM4HTSzQp3VIIXyFNChmDPnYGHhOMGWJbUbK0PfrW25 IDENCj4+AHcizsTxWyaLGrY1AGXlc9BzUIf2TZ7KMSKwFRk8oQMoL94mn3EybTZdTtkiGHl0Y7rglCkb KrHwEEP0HFNaZE3GCWE5YAWvJJ5gXAIhJJP4BwG5ZP FJCR8VSQPzFLQtwGEfHWNlTCRMOS9VWDkyNFS7GQIyreDfoFTuAPfzBZ4PGUSmmuCuTdXaCKZDSSu+Pg 3ADW8oo7MpNVviMTTzRY5tko6ERBkKFaLuY1C1yXOcI2C1IFtwPi9KASPxDGBlSiCpBTGLJZlrOV2WYI 7eksE9JB5JlHPiHKDnFKPbyFBuCTl3G67spNPpSDxe DW0ESYI+Shawn+Bk8EXHVvWTDkFBPmYvQcPJPWPlJwJ5YcY0WBt8NyL9CjMB45eEkmpcOwUPlrRH1RGQ8c TLYtFYPWQD0ZhKUeiL6kyxQwViJeQLXYZrIyA10bnRXpRUAqYTUiLQGlNk4ANCWmE2EplwTpgBbmxrKh PITnJWHMDQ3RNQfxnhUpgBEtvHsjJO30jFqsZR9ZVa 3YXfOfEO7plp7ReKGnIn2TMPQqMm3FRWTwJJCkVQTlJLR4QVChXjApFNscGMElUFLmRUI7ZQCsMIUrGY 2CGsWlXYEkJjX6ZfFjUAUnMBJzfu8CGWYjZQGaYlCiRRIhKQKjLPQaKJkhGJCtQRVcRLU0DRQbNTFcDY 3GTgTbSAJgHXTuRITbEQKpPPIfee4SPESsYHVcNbPf SPUwRCYeOJVdCPcoBCDwOAN5OWHwXZMiTXMzKC0YRvGxJDZfGQP3EwWaBOKxHZIrvz2YIVWmEBYvOYol GrBnZKMtHYWtGDbrSREoFUP5SVJ3BLIaIFNbGO0DKcZhGEQnWPKmTdqkNPDsBYMqvp8FKCDgOCRlVzEc SyPdSIHoSHZfBKbgHUFtNLReNSn0IQIeWPGyFI5GOu AvDSVgXUVuRMMqJAKvUNVunk3BZLUoNBCrEGK5XFEbLLMlFICuPNokLJKfYKR3UdJaIJGwFQLxKY0YGc YnMDDyGNM1YCPpFUWaDEZlaw5UCFAjUKWfNrSoDHEgGABfYLVbIMzbYSCvEOP6EfI2JDDqURAxYR6RKb SaWZHyTCV4ZPVtIZFqPLGyfy2BWCFkGUOeUxo1JNDt MGVjNYPhTNobKILkBSH5KSWdGWRaICFvDZ4XLvTuRLGoPAalIfAaWYKfBTTave4HMDNqNQUmMUDwGKUn WXLkXOAuGRobHTJeLMO3GCY4CBZdCFJlAN3NHmRqOUDsIlYoJMBvYOMvVYAzgx2DECRbGLHsIZP4DXIl IVViOZIfKIvlJAEzVGZiJYKuJQWsGWZiVB3QDuZdEC CuPlZzRrXcXTPdEQJxtb9OVTTwSWSbBEZ8TyOwUPFjCPXuCWwiHTGsBWYkLbZtZKXpZCXtBM8VRqIhAK RmHkGyAlTrHHYmPUBbug6UZKPrFDQhQjIeRZDjJVFxLMSwDNniXNElZOBqPaS4ZASzNSVfUS2UKmVxRS LjCzU8AJLfYNHdUQSsfg5DvHDseBiuia4OZMhJCn3B kNeiUKH8VZxuZm3wvIRaETKuBQTJHe3PlmAuCLEjMYFIEZdxTYQtVRB5FjN7ROSaVVL7CWnhHgYcFLr1 VepvUjY2YNInPyLgMtQ8LAIbJcs6PFOzVIosOfDlRBFdWMQgEyVsXTOpQ7McIjM+TN5rVPp+Ro6Sk1Sa upQ5jkNnUBsmILF8OG9YIMVJU4UCBe== ID Date Data Source [id number] 10/15/2020 05:31:15 PM [facility] HEPATOBILIARY IMAGING [facility] [id number] RESULTInterpreted by:Rancho Dacosta MBBCHHISTORY: Cholelithiasis.TECHNIQUE: Following the [...] rce(s) Supporting Document(s) ID Date Data Source [id number] 10/15/2020 04:40:01 PM [facility] Name Value Range Interpretation Code Description Data Jazmín rce(s) Supporting Document(s) Glucose [Mass/volume] in Capillary blood by Glucometer 160 mg/dL 70- 140 [facility] ID Date Data Source [id number] 10/15/2020 12:21:59 PM [facility] Value Range Interpretation Code Description Data Jazmín rce(s) Supporting Document(s) Glucose [Mass/volume] in Capillary blood by Glucometer 179 mg/dL 70- 140 [facility] ID Date Data Source [id number] 10/15/2020 11:09:58 AM [facility] Name Value Range Interpretation Code Description Data Jazmín rce(s) Supporting Document(s) [facility] JWQIFf1uYhMXOcQpa9XgNjAyUAVhWP0xlif9D7Y4aMLxV6AnoFXln6zvH5UcK0RdOXCbZTAVUT9PmYSv jb2 [file] T2k4qjan6vEdtzzYpok0KlxnsrjnzYU+Fz8iDetvcN g1/h9/69E+Wr5/WW8rS/6rC/fbeiG2HvbBug7YC8NzqM5ngnUyg4rQifN6D+pHxKuX+awco2zrOM5Gtt 7SSU0a7tAP+WldbaOx3i5Z1h3hHh8Ou+F/or1D/2N7Cn5N2Di8FQFM4IBhV3+jW3UvD3hY0o92iu1tvz oFKXdDCdDsJg4CprQzrczYmpy1XgO7/kYyanDKN6Th +V936Vu3Gk4xjYo5BuIQ+5P+qnO1bpAx4q5ISmgSlRibJjp/kn4z0d0zyV+2Eq2s4f94K/d+sUTjbb9y ffHWojXDx70bmhRcgsTkrb9iaDqAc3CvAg619L8G+5Y0Ve9/fH0ex180f7stqGhElM4LQ8qG1Fx/2Vc7 OEcrN2JTeYkFViqI/CbR6Sj034VAb/4vW+0mc89WM5 +MTpf80dcBAe0J/0rrJkGufPeV4sh3w0bu2IVPmytj98Hz61O/RV11+xTlx/hb2wO0/Gcxkt5ju32dX7 L/Gu3nbCYk77tJblbIx/kAy2z1n79DyzTsR7R0kgPz3k0RucnzUkDMVhzAR3NEOigu5erSsoz8wtnfcS 52F6734ns92vHR63QcAaW/lH0H6JGRAcLzS7cxNiJN kWffLzhm5jmWQrViZb63yBVZ7O7VOX+zv3kOD+pu8xfGpf/aGGr78wuMCSbNHnI+LOETyncN+IxxyNa+ z9Vy226JV7+BW+IvlR7f04Ho9H+IBGctKho4A6FY/Yqa/o9EzA6Uv/6aX5oIWd+reH2Iq49hPm5tsFCU aipv4iN+ad operations associate/ZXG+Zje32qofR25EXxeno++5Zb8cbz [file] e5h33ge6X4192jFtu5+9/Klpqo7r6d/38g7mK6+2med3hdbms1q1/bScY050/n1Wf69dd2hhty/2/u0/ keXl4hQx163+0UqCb16/gsc0q6xKdoa98B//G/8pp6 pfXr37/XCug58hhvxc0eOx259+/9WrL99+fPvmw8//5VG7/Q00n6c7c//pb/aihrn3f318lWu0C6+//u qbV+/ffI4Pe/tg1mlpEGhAU4311vZ7dtCQO/9Fk2Zjv3//l7awi4baQpRbkNhbId/u/JUco57a4ua/+f jFVz+/j0eeve/Bk3p6odblyZR0T//79o27gv5/VPOj 9FERH9+8f/v1+2yi75d2/F87nerG0u3g7LG3p2bmXh194lVl7/+NP92j8/7T6z/+9G+//9OPP/zu5X/8 18vr//j+p3//w/e//4eXz/70++9/uuxEp5rwRI/r37/88aeX+sv2S6+QWg172nm3qyb98u86F4nbLp/x x1/+WZ+2U6v6CA/4x+6Hw2V88DM61E5Y6Z4bHut/Xv 84BfXcQHlr+/BcmeHYgzvgUp14cYX7pGvav46+jNwX+1cpdTEu68f//NsPf/pJ15KyJo///CZAW6632z LZm9f//azvXjjIAbj8kOWJ7y+aynBi5V/uhJ/s6VXzwQZ4dW+CxbbWUXsawd/98NNf/vHlT9//5Yen2z +IwAvCAt0/+lFbyP+a2H/7+b0D+ub9y+9/+ssPf/pf 3//ts0c91vZ04cg580uk+vntA/dM8n4pzozaa3u//R9/+yu1Kyfha+2ZNssvMr1+8l8+/lab+nthR03u +ZUjZk5qjVyNjOW5vQ/zKrY2p0jyZvspqT/2ldjPq+1A33zy/pOPL9//7x/+/Gll1lBurT6119/ffXJP nY+h91iv/utP//r3P/u0nTXU9//hqXX3E/r6+//87f d/fnS0n/0/KnrM3/8MPFX0/o9//PHTxwz+sx/J96k0c98+0dfoavquznYKG8/47X/15SuaYm3p44jPv0 7zZz/82HL85B//8uhSv/k9bTgQHbnsS+h10w8aW1z5j4/X84072JzeAlqm6++9pv//p6Oe8KpptgP09z t//+WhbOtd1621uTp4wzOYwDNsqw6gwg+8eVzfU+HL m88/azrW9YQJ6R/ff/7m/GZ77Gu4Ouz5qoU58fhvsus56cojr3QX5NSa/y/1mouTNlEeSFO9lrJgjFzg wfPzFnrFASqnAEVzVxt9DT1VxABiGEWfP6J8YMMcco2vOVGnPNYwzXOkMkLoGIWKVL5JbONcAW5CXBk6 EDOdHUPtDdJaBZItlgZ1GHNoVQSjBWInO8OkjdBfdZ AyIDAgUj4+WV5zk8OySfWcFVZjGbp7UU6OuGXzDT5PaFCqrS4xqvCyU506prQaLCUvEhmjj5YlTTfgYY RMJF3LISX0ZXC1EROcZd2+VA2be1IkCmHvYUUoQru5PO2YiUCsg3HrYK9RF6DqHMSjFFVSORV9j7EkZK LidmvtrmoaJ8FnXOQ6iP9cNDZ7RVQwURxxQTYsBXBz XCJyHBThTGxwUSJoRPAfSCMtHWYrMYi2tZLkDI8TD6VdVTObBAICDNLdjlHkVm3wJDPICPvMEkDhXIJN P5GRGOOfUmg0UXDaJZ6NsQTrWTV7BShUXLPJEYnZYRhhYuEev8I8EBIeT6NgJLNaaeNgRQRTWHbxWfnv SB0ljLzflyruQ6AygEPlSJIWAXQnADYlPNGqCHZxB2 Tdt7X6M9QmGWhNKFJXYMsNWWhlMtP4k92ywiGBIZYwLVFrFZ1+ZH0xk2HzRx3RZZYbVZ2pfus9UL5YqS CuWG8HGVxvvvEaB7gdzzJcDuIaGRPIAP8iL1KcbW86QOM+NxWiXC6drus2qkSsKjRfBHRjVSJrCYQvPQ mqCNPeJLJiWXCgHPH3QIT2ZCHgOyZhUHXwQgO5QQTm BAGiVSCgwgADJSWyQEF1XMKxRWNgOZFvCUMlLUmcOGLxBMc9Pwp9MJMxXQFnJD5lYkBdLXLiLRDpVTSh ZrJ3QxBeSxKIEBDyDLZsABIkMgGlHXWdQTQdUWcoLUHjDVGfACm7JNGlTFQmPO1qIzDpDBTrGENjREBc LVPiFOMfclWZMKUbRQCcHYU9ZSUdWXCzXDKlLDzuCY UzRIFxUCC7JXZnBJVkKU0eNnFcVLCgCGZ0XwDbQYGxUGMvnbVARNEaXWHuYGY7NHCnFNXkWFQfQNstTH XnTDQrJlP7NLUfZGQdWJ4zCmPgUYNxGWJ6HGWrWEEpAFJzipHWDLXaQPWlFWt9XwKxZPQgNIIzLRaxJJ RxHCZoWYxwFXHlFNGcJL7rTdIrRQDiTSPdMZWhYNMs XBOntoXKHDPuPNWhHEG9EgUlGQNlLABmCMqaRGTqHRWwMLX4NMDxVAGsNZ2jOfVaYRBxHyXxFANuTZKc GDLuhcHEPHFeUGWaALKgZNLlPIPyKNOjLIcfZDHtFHQnMvL8TZYyPALwDU1iFaAyMERtRPV3AAWdKAOm MIVjzmZAGXBwGOOkYACrMBA7SGTnQKWrFVr7otJmjI XbAey6Cz6CmJlsIRI4Un3BpnDaFTYjNVXPEm3Oz766DCPbYOFORlp+MxtsfATfcCnaRNBPMsE8BYDOKK VFT0Y= ID Date Data Source [id number] 10/15/2020 08:19:27 AM [facility] Name Value Range Interpretation Code Description Data Jazmín rce(s) Supporting Document(s) Glucose [Mass/volume] in Capillary blood by Glucometer 145 mg/dL 70- 140 H [facility] ID Date Data Source [id number] 10/15/2020 04:23:51 AM [facility] Name Value Range Interpretation Code Description Data Jazmín rce(s) Supporting Document(s) Leukocytes [#/volume] in Blood by Automated count 9.5 10*3/uL 4-10 [facility] Erythrocytes [#/volume] in Blood by Automated count 2.82 10*6/uL 4.6- 6.1 L [facility] Hemoglobin [Mass/volume] in Blood 9.5 g/dL 13.5-18 L [facility] Hematocrit [Volume Fraction] of Blood by Automated count 28.2 % 4 1-53 L [facility] Erythrocyte mean corpuscular volume [Entitic volume] b y Automated count 100.0 fL 80-96 H [facility] Erythrocyte mean corpuscular hemoglobin [Entitic mass] by Automated count 33.7 pg 27-33 H [facility] Erythrocyte mean corpuscular hemoglobin concentration [Mass/volume] by [facility] 33.7 g[facility] width [Ratio] by Automated count 15.6 % 11.5-14.5 H [facility] Platelets [#/volume] in Blood by Automated count 207 10*3/uL 150-400 [facility] Differential cell count method - Blood [facility] Neutrophils/100 leukocytes in Blood by Automated count 80 % [facility] Lymphocytes/100 leukocytes in Blood by Automated count 10 % [facility] Monocytes/100 leukocytes in Blood by Automated count 7 % [facility] Eosinophils/100 leukocytes in Blood by Automated count 2 % [facility] Basophils/100 leukocytes in Blood by Automated count 1 % [facility] Neutrophils [#/volume] in Blood by Automated count 7.61 10*3/uL 1.8-7 .0 H [facility] Lymphocytes [#/volume] in Blood by Automated count 0.98 10*3/uL 1.2-4 .0 L [facility] Monocytes [#/volume] in Blood by Automated count 0.63 10*3/uL 0-0.8 [facility] Eosinophils [#/volume] in Blood by Automated count 0.17 10*3/uL 0-0.5 [facility] Basophils [#/volume] in Blood by Automated count 0.10 10*3/uL 0-0.2 [facility] Nucleated erythrocytes/100 leukocytes [Ratio] in Blood by Automated count 0 /100{WBCs} 0-0 [facility] ID Date Data Source [id number] 10/15/2020 05:06:00 AM [facility] Name Value Range Interpretation Code Description Data Jazmín rce(s) Supporting Document(s) Albumin [Mass/volume] in Serum or Plasma by Bromocresol green (BCG) dye binding method 3.2 g/dL 3.5-5.2 [facility] Bilirubin.total [Mass/volume] in Serum or Plasma 2.3 mg/dL <1.2 [facility] Bilirubin.direct [Mass/volume] in Serum or Plasma 1.3 mg/dL <0.3 [facility] Alkaline phosphatase [Enzymatic activity/volume] in Serum or Plasma 186 U/L 40-129 [facility] Aspartate aminotransferase [Enzymatic activity/volume] in Serum or Plasma 34 U/L <40 [facility] Alanine aminotransferase [Enzymatic activity/volume] in Seru m or Plasma 99 U/L <41 H [facility] Protein [Mass/volume] in Serum or Plasma 6.3 g/dL 6.4-8.3 L [facility] ID Date Data Source [id number] 10/15/2020 05:06:00 AM [facility] Name Value Range Interpretation Code Description Data Jazmín rce(s) Supporting Document(s) Lipase [Enzymatic activity/volume] in Serum or Plasma 66 U/L 13-6 0 H [facility] ID Date Data Source [id number] 10/15/2020 05:06:00 AM [facility] Value Range Interpretation Code Description Data Jazmín rce(s) Supporting Document(s) Bicarbonate [Moles/volume] in Serum 20 mmol/L 22-29 L [facility] Chloride [Moles/volume] in Serum or Plasma 102 mmol/L 98-107 [facility] Creatinine [Mass/volume] in Serum or Plasma 2.61 mg/dL 0.70-1.20 H [facility] Icteric Glucose [Mass/volume] in Serum or Plasma 152 mg/dL 70-140 [facility] Potassium [Moles/volume] in Serum or Plasma 4.2 mmol/L 3.4-5.1 [facility] Sodium [Moles/volume] in Serum or Plasma 136 mmol/L 136-145 [facility] Urea nitrogen [Mass/volume] in Serum or Plasma 51 mg/dL 8-23 [facility] Anion gap 3 in Serum or Plasma 15 mmol/L 8-15 [facility] Osmolality of Serum or Plasma by calculation 299 mosm/kg 275-300 [facility] Creatinine/Urea nitrogen [Mass Ratio] in Serum or Plasma 19 [facility] Calcium [Mass/volume] in Serum or Plasma 8.7 mg/dL 8.8-10.2 [facility] Glomerular filtration rate/1.73 sq M pre dicted among non-blacks [Volume Rate/Area] in Serum or Plasma by Creatinine-based formula (MDRD) 23 mL/min/1.73m2 >60 L [facility] Glomerular filtration rate/1.73 sq M pre dicted among blacks [Volume Rate/Area] in Serum or Plasma by Creatinine-based formula (MDRD) 26 mL/min/1.73m2 >60 L [facility] ID Date Data Source [id number] 10/15/2020 04:58:50 AM [facility] Value Range Interpretation Code Description Data Jazmín rce(s) Supporting Document(s) Magnesium [Mass/volume] in Serum or Plasma 1.6 mg/dL 1.6-2.4 [facility] ID Date Data Source [id number] 10/15/2020 04:58:50 AM [facility] Value Range Interpretation Code Description Data Jazmín rce(s) Supporting Document(s) Natriuretic peptide.B prohormone N-Terminal [Mass/volu me] in Serum or Plasma 61723 pg/mL <125 H [facility] ID Date Data Source [id number] 10/15/2020 04:58:50 AM [facility] Value Range Interpretation Code Description Data Jazmín rce(s) Supporting Document(s) Phosphate [Mass/volume] in Serum or Plasma 3.1 mg/dL 2.5-4.5 [facility] ID Date Data Source [id number] 10/15/2020 04:58:50 AM [facility] Value Range Interpretation Code Description Data Jazmín rce(s) Supporting Document(s) Troponin T.cardiac [Mass/volume] in Serum or Plasma 0.03 ng/mL <0.01 [facility] ID Date Data Source [id number] 10/14/2020 09:06:24 PM [facility] Value Range Interpretation Code Description Data Jazmín rce(s) Supporting Document(s) Glucose [Mass/volume] in Capillary blood by Glucometer 174 mg/dL 70- 140 H [facility] ID Date Data Source [id number] 10/14/2020 04:50:34 PM [facility] Value Range Interpretation Code Description Data Jazmín rce(s) Supporting Document(s) Glucose [Mass/volume] in Capillary blood by Glucometer 136 mg/dL 70- 140 [facility] ID Date Data Source [id number] 10/14/2020 01:46:24 PM [facility] Value Range Interpretation Code Description Data Jazmín rce(s) Supporting Document(s) Glucose [Mass/volume] in Capillary blood by Glucometer 138 mg/dL 70- 140 [facility] ID Date Data Source [id number] 10/14/2020 01:41:02 PM [facility] IR PERCUTANEOUS CHOLECYSTOSTOMY TUBE INS ERTIONFINAL [...] pigtail cholecystostomy drain using a single step [id number] technique with the locking loop coiled in [...] Name Value Range Interpretation Code Description Data [facility] rce(s) Supporting Document(s) ID Date Data Source [id number] 10/15/2020 10:24:21 AM [facility] Cmnt XXX-Imp : BILE CULTUREMicro organism XXX Cult : 1+Citrobacter freundii complexATTENTION This species is always resistant to ampicillin, amoxicillin-clavulanic acid, ampicillin-sulbactam, first-generation cephalosporins, cephamycins, and cefuroxime. Name Value Range Interpretation Code Description Data [facility] rce(s) Supporting Document(s) ID Date Data Source [id number] 10/15/2020 07:15:37 AM [facility] Cmnt XXX-Imp : NoneGram St[facility] XXX : Test Not Performed.Entry ErrorMicroorganism XXX Cult : Test Not Performed.Entry Error Name Value Range Interpretation Code Description Data [facility] rce(s) Supporting Document(s) ID Date Data Source [id number] 10/14/2020 01:03:44 PM [facility] Name Value Range Interpretation Code Description Data [facility] rce(s) Supporting Document(s) Glucose [Mass/volume] in Capillary blood by Glucometer 135 mg/dL 70- 140 [facility] ID Date Data Source [id number] 10/14/2020 11:01:57 AM [facility] XR CHEST FRONTAL ONLY [id number] RESULTI nterpreted by:Prudence Mark MDIndication: History of [...] rce(s) Supporting Document(s) ID Date Data Source [id number] 10/14/2020 09:21:25 AM [facility] Name Value Range Interpretation Code Description Data Jazmín rce(s) Supporting Document(s) Glucose [Mass/volume] in Capillary blood by Glucometer 141 mg/dL 70- 140 H [facility] ID Date Data Source [id number] 10/14/2020 05:29:26 AM [facility] Name Value Range Interpretation Code Description Data Jazmín rce(s) Supporting Document(s) Glucose [Mass/volume] in Capillary blood by Glucometer 133 mg/dL 70- 140 [facility] ID Date Data Source [id number] 10/14/2020 04:08:24 AM [facility] Name Value Range Interpretation Code Description Data Jazmín rce(s) Supporting Document(s) Leukocytes [#/volume] in Blood by Automated count 7.9 10*3/uL 4-10 [facility] Erythrocytes [#/volume] in Blood by Automated count 2.48 10*6/uL 4.6- 6.1 [facility] Hemoglobin [Mass/volume] in Blood 8.4 g/dL 13.5-18 [facility] Hematocrit [Volume Fraction] of Blood by Automated count 24.7 % 4 1-53 [facility] Erythrocyte mean corpuscular volume [Entitic volume] by Auto mated count 99.5 fL 80-96 [facility] Erythrocyte mean corpuscular hemoglobin [Entitic mass] by Automated count 33.9 pg 27-33 [facility] Erythrocyte mean corpuscular hemoglobin concentration [Mass/volume] by Autom[facility] count 34.1 g/dL [facility].0[facility] width [Ratio] by Automated count 16.4 % 11.5-14.5 [facility] Platelets [#/volume] in Blood by Automated count 184 10*3/uL 150-400 [facility] Differential cell count method - Blood [facility] Neutrophils/100 leukocytes in Blood by Automated count 75 % [facility] Lymphocytes/100 leukocytes in Blood by Automated count 12 % [facility] Monocytes/100 leukocytes in Blood by Automated count 8 % [facility] Eosinophils/100 leukocytes in Blood by Automated count 4 % [facility] Basophils/100 leukocytes in Blood by Automated count 1 % [facility] Neutrophils [#/volume] in Blood by Automated count 5.92 10*3/uL 1.8-7 .0 [facility] Lymphocytes [#/volume] in Blood by Automated count 0.96 10*3/uL 1.2-4 .0 [facility] Monocytes [#/volume] in Blood by Automated count 0.67 10*3/uL 0-0.8 [facility] Eosinophils [#/volume] in Blood by Automated count 0.30 10*3/uL 0-0.5 [facility] Basophils [#/volume] in Blood by Automated count 0.10 10*3/uL 0-0.2 [facility] Nucleated erythrocytes/100 leukocytes [Ratio] in Blood by Automated count 0 /100{WBCs} 0-0 [facility] ID Date Data Source [id number] 10/14/2020 04:21:32 AM [facility] Name Value Range Interpretation Code Description Data Jazmín rce(s) Supporting Document(s) Prothrombin time (PT) 15.9 s 12.5-14.9 H [facility] INR in Platelet poor plasma by Coagulation assay 1.25 [facility] Routine intensity oral anticoagulation I NR is typically 2.0-3.0. Target INR must be clinically individualized. ID Date Data Source [id number] 10/14/2020 04:45:03 AM [facility] Value Range Interpretation Code Description Data Jazmín rce(s) Supporting Document(s) Albumin [Mass/volume] in Serum or Plasma by Bromocresol green (BCG) dye binding method 2.9 g/dL 3.5-[facility].2 [facility] Bil[facility].total [Mass/volume] in Serum or Plasma 2.2 mg/dL <1.2 H [facility] Confirmed Bilirubin.direct [Mass/volume] in Serum or Plasma 1.7 mg/dL <0.3 H [facility] Alkaline phosphatase [Enzymatic activity/volume] in Serum or Plasma 172 U/L 40-129 H [facility] Aspartate aminotransferase [Enzymatic activity/volume] in Serum or Plasma 33 U/L <40 [facility] Alanine aminotransferase [Enzymatic activity/volume] in Seru m or Plasma 115 U/L <41 H [facility] Protein [Mass/volume] in Serum or Plasma 5.7 g/dL 6.4-8.3 L [facility] ID Date Data Source [id number] 10/14/2020 04:45:03 AM [facility] Value Range Interpretation Code Description Data Jazmín rce(s) Supporting Document(s) Lipase [Enzymatic activity/volume] in Serum or Plasma 43 U/L 13-6 0 [facility] ID Date Data Source [id number] 10/14/2020 04:45:03 AM [facility] Name Value Range Interpretation Code Description Data Jazmín rce(s) Supporting Document(s) Bicarbonate [Moles/volume] in Serum 18 mmol/L 22-29 L [facility] Chloride [Moles/volume] in Serum or Plasma 105 mmol/L 98-107 [facility] Creatinine [Mass/volume] in Serum or Plasma 2.80 mg/dL 0.70-1.20 H [facility] Icteric Glucose [Mass/volume] in Serum or Plasma 130 mg/dL 70-140 [facility] Potassium [Moles/volume] in Serum or Plasma 4.4 mmol/L 3.4-5.1 [facility] Sodium [Moles/volume] in Serum or Plasma 137 mmol/L 136-145 [facility] Urea nitrogen [Mass/volume] in Serum or Plasma 57 mg/dL 8-23 H [facility] Anion gap 3 in Serum or Plasma 14 mmol/L 8-15 [facility] Osmolality of Serum or Plasma by calculation 301 mosm/kg 275-300 [facility] Creatinine/Urea nitrogen [Mass Ratio] in Serum or Plasma 20 [facility] Calcium [Mass/volume] in Serum or Plasma 8.7 mg/dL 8.8-10.2 [facility] Glomerular filtration rate/1.73 sq M pre dicted among non-blacks [Volume Rate/Area] in Serum or Plasma by Creatinine-based formula (MDRD) 21 mL/min/1.73m2 >60 L [facility] Glomerular filtration rate/1.73 sq M pre dicted among blacks [Volume Rate/Area] in Serum or Plasma by Creatinine-based formula (MDRD) 24 mL/min/1.73m2 >60 L [facility] ID Date Data Source [id number] 10/14/2020 12:39:52 AM [facility] Name Value Range Interpretation Code Description Data Jazmín rce(s) Supporting Document(s) Glucose [Mass/volume] in Capillary blood by Glucometer 124 mg/dL 70- 140 [facility] ID Date Data Source [id number] 10/13/2020 08:07:32 PM EST [facility] Name Value Range Interpretation Code Description Data Jazmín rce(s) Supporting Document(s) ED Provider Note [facility] GKBJOc7uMkYYVeVv12/ZCHtsKNOef5CsLRqlBLc0NVuxONTxC7HeRWE2mY8yDVL3CNjCBrXlGxPiIjGe lbm [file] P8MMZsCmw+QF5hBLt+Vn2Ld7IrriI5ybJmIKh6RNL3NB8IKQMNU1ZXIc== ID Date Data Source [id number] 10/13/2020 06:04:12 PM [facility] MR BILIARY TREE MRCP [id number] RESULTIn terpreted by:TANO VegasROCEDVERONICA INFORMATION: Exam: MR Abdomen Without Contrast Exam date and time: 10/13/2020 3:57 PM Age: 75 years old Clinical indication: Biliary acute pancreatitis without necrosis or infection; Abdominal pain; Epigastric; Additional info: Rule out choledocholithiasis; Cystic duct obstruction TECHNIQUE: Imaging protocol: MR of the abdomen without contrast. COMPARISON: US RENAL OR AORTA COMPLETE [id number] 10/12/2020 3:47 PM FINDINGS: Liver: The liver [...] Normal bile ducts. COMMENTS: Consistent with the [employer]'s Incidental Findings Committee white paper (J Am Uday Radiol 2018): Any incidental renal lesion less than 1 cm or classified as too small to characterize, or any incidental cystic renal lesion characterized as simple-appearing, is likely benign. No follow-up imaging is recommended for these lesions per consensus recommendations based on imaging criteria. THIS DOCUMENT HAS BEEN ELECTRONICALLY SIGNED BY MKIE MACHADO MDThis document has been electronically signed by Mike Machado MD on 10/13/2020 6:04 PM Name Value Range Interpretation Code Description Data Ajzmín rce(s) Supporting Document(s) ID Date Data Source [id number] 10/13/2020 06:02:57 PM [facility] Value Range Interpretation Code Description Data Jazmín rce(s) Supporting Document(s) Glucose [Mass/volume] in Capillary blood by Glucometer 136 mg/dL 70- 140 [facility] ID Date Data Source [id number] 10/13/2020 02:04:03 PM EST [facility] Name Value Range Interpretation Code Description Data Jazmín rce(s) Supporting Document(s) Consultation [facility] QIBYAu0nOdLGUfNn28/AHJytSJLxc7ExTVsjTIo5SQspHHGoG9KfSPQ6hT8qQQJ8UFaQUaXbPrTxNaQq lbm [file] AgICAgICAgICAgICAgICAgICAgICAgICAgICAgICAgICAgICAgICAgICAgICAgICAgICAgICAgICAgIC AgICAgICAgICAgICAgDQogICAgICAgICAgICAgICAg ICAgICAgICAgICAgICAgICAgICAgICAgICAgICAgICAgICAgICAgICAgICAgICAgICAgICAgICAgICAg ICAgICAgICAgICAgICAgICAgICAgICAgDQogICAgICAgICAgICAgICAgICAgICAgICAgICAgICAgICAg ICAgICAgICAgICAgICAgICAgICAgICAgICAgICAgIC AgICAgICAgICAgICAgICAgICAgICAgICAgICAgICAgICAgDQogICAgICAgICAgICAgICAgICAgICAgIC AgICAgICAgICAgICAgICAgICAgICAgICAgICAgICAgICAgICAgICAgICAgICAgICAgICAgICAgICAgIC AgICAgICAgICAgICAgICAgDQogICAgICAgICAgICAg ICAgICAgICAgICAgICAgICAgICAgICAgICAgICAgICAgICAgICAgICAgICAgICAgICAgICAgICAgICAg ICAgICAgICAgICAgICAgICAgICAgICAgICAgDQogICAgICAgICAgICAgICAgICAgICAgICAgICAgICAg ICAgICAgICAgICAgICAgICAgICAgICAgICAgICAgIC AgICAgICAgICAgICAgICAgICAgICAgICAgICAgICAgICAgICAgDQogICAgICAgICAgICAgICAgICAgIC AgICAgICAgICAgICAgICAgICAgICAgICAgICAgICAgICAgICAgICAgICAgICAgICAgICAgICAgICAgIC AgICAgICAgICAgICAgICAgICAgDQogICAgICAgICAg ICAgICAgICAgICAgICAgICAgICAgICAgICAgICAgICAgICAgICAgICAgICAgICAgICAgICAgICAgICAg ICAgICAgICAgICAgICAgICAgICAgICAgICAgICAgDQogICAgICAgICAgICAgICAgICAgICAgICAgICAg ICAgICAgICAgICAgICAgICAgICAgICAgICAgICAgIC AgICAgICAgICAgICAgICAgICAgICAgICAgICAgICAgICAgICAgICAgDQogICAgICAgICAgICAgICAgIC AgICAgICAgICAgICAgICAgICAgICAgICAgICAgICAgICAgICAgICAgICAgICAgICAgICAgICAgICAgIC LcGSMdBJYvTHWpIUEhPYVqXHArBFNzQFm4S7cfQMKn TIPtEP4wLGk8Ms6+ZDkMNzPtFAY0izBgmF2ATP4bo4WbVKkiXPVhh8JiJSi9ZI0UJCVqGTouCB3MEKtu fe3WHVHmPUNzvBXNh4qzDcDpUAM3KECsEmohWV1HNIRvL0qkwxYrDIYjKBHPYYrySOERBNyvCGEQONZz STAyXtCqSlLgZPYiAC1CDOSwG902iaCaKL2MRz8WPo DpOP8gvq1YXkxhBWKdRwaYRjx7TLrlZN5AyUJuxJIhBSIxYDXAHrEjB8hsu8CzCpxfVQVBSWuqQQ4Tv5 VudCAxDQo+Ba4HFV7oq7UuTGdtQGIxEC4bnf6XGMdVHjFqC8WfaVijDCLrmrU6zJToWPM8GQIfhShoYC WrRDCjFCEhQGSNKwJUGGF8TDQrPf4bGFNbNXFmAeOj AFWMUQ2CRXUwDMXnuTCjUAZxTIIDOR9MBXmkAHC1TYDzlpZqsHXqYGfpMW6DZKOkjfAmCntzIYNFTXd+ Hi8HNN9pw6MhNQmhQAKfGV3xce5EDBcHGgMtL8C9pPZyX1O3QCuvDu4JIMMlTVVoBpHfUGWDDNpcOX7U YT3gnuU1HH1UvHOdNPOaVVWkuUJoGLq7G47juNWvAL ttOK5UJOZ+Shawn+Jm0GHHWzIQWbSHRoYkYfJUTZJrEkL0QqB5PEn0UvF9WdRV29uSumnjQbRQkzIK7FIK 5hJCKkUQQETQ4VqEScfU3sklKiHjKzXCSXYmPoH98htUUlYAKmMCR1GQZdZn8QGVFbD7MoniEspCrtci DaLYPoJEDVGP7SJPdfqoSbdMFteKwkUQ45xXsnGS7H Al0ACgNzBJ2wqy0TgFZzLz1DBXVnYQ1KWMNmHAPrELJlVTN5BMLlZhWxMKurUIIvDVKpZFE3HLNdIRCm CI4INcVhNEUfScKwQIVdNETiJQGofi8UTNQnDBLfMgP9IzKdSGIrLFYcRUxzOAJkNATyZIQ0EDWaYLPg YN6TIkZwDXDwKTMeWumxHREmJXNhwi7YDCQmLVUmAr T1VxYkWEHpIWYtYAoaVLNpCVZ5LAKlHIGwQWGsTY7TQcMvYFCyYHDrTTVhSOQqFFMoed6VCYYkJEYwDZ H9AwLjZFVhIKXnDDqhBHYxDOE4KsR4FVLnCAVrSI1MMjAgQJToCJI2MLJcNOHpPEHqzj2KTMTaCJTeIF meZQKtAYKsZAFiAMbzFNIrZKH7YLG8FZSxCWWpSV7V AfHlYWGmRNQlKuZyPHRlOAFmxn1NEJShAMKtJzT2GORjTDVfTIKyTFtiVCKbOZI4QWslKKXiQURnSJ5C CnBrJUSfABm1RjNaRHAxWRPhpt4KLPWcVEFxDEYfYJTxWWNmTRJoBWsxGUJbBTN2XZF8XHHhAJPfJW6K KdJxIUFrXEqjAvFhTVXdTKHqkj2IJJPeJJVlDNZjNT XsDVKzCPGqUDutFSOtVHNsGyH7VRWnDSXaHD3OMhOfZGClIaO3QwXdZMUlEWJjzo9MQIXwOBXeOMQ4FC CuWGKwGUSjQPbqJFPpHBGeSuXjCMKvSQSjTC2IJdDuRKYhBuZ0JwNyIODfKMKqfv6OLFKdUDAzGnN5Iw VrWJStGXPnVQczNUWoBRHrZoJ0RVFsONSuNN6SKtUu CQAvJkY9EMFnDMSdXNMxga2XeFSjaLgjkh5QKRcFPl5FbRzbMSZfDCieQi3ecARgAZYbBQDATb9WxnYi IQWzDCSXLTdvKEThRWBrEic3JBJuMHE4AoTwYRZaDqQ3HDBtSOB7HyU3C7PsGmX9OBAjXas2FJP1Zem8 TYYoJpRoOBNfFPD2ObuhVTCvShZ+AU8aUZe+Gq1Yq2IsfxW2ylVwMKqsHtO9BP4NUEGGR6FIMw== ID Date Data Source [id number] 10/13/2020 02:02:38 PM [facility] Name Value Range Interpretation Code Description Data Jazmín rce(s) Supporting Document(s) Glucose [Mass/volume] in Capillary blood by Glucometer 143 mg/dL 70- 140 H [facility] ID Date Data Source [id number] 10/13/2020 09:14:59 AM [facility] Value Range Interpretation Code Description Data Jazmín rce(s) Supporting Document(s) Glucose [Mass/volume] in Capillary blood by Glucometer 139 mg/dL 70- 140 [facility] ID Date Data Source [id number] 10/13/2020 05:44:38 AM [facility] Value Range Interpretation Code Description Data Jazmín rce(s) Supporting Document(s) Leukocytes [#/volume] in Blood by Automated count 11.9 10*3/uL 4-10 H [facility] Erythrocytes [#/volume] in Blood by Automated count 2.82 10*6/uL 4.6- 6.1 [facility] Hemoglobin [Mass/volume] in Blood 9.3 g/dL 13.5-18 L [facility] Hematocrit [Volume Fraction] of Blood by Automated count 28.4 % 4 1-53 [facility] Erythrocyte mean corpuscular volume [Entitic volume] b y Automated count 100.6 fL 80-96 H [facility] Erythrocyte mean corpuscular hemoglobin [Entitic mass] by Automated count 32.9 pg 27-33 [facility] Erythrocyte mean corpuscular hemoglobin concentration [Mass/volume] by Automated count 32.7 g/dL 32.0-36.0 [facility] E[facility]th[facility] distribution width [Ratio] by Automated count 16.7 % 11.5-14.5 [facility] Platelets [#/volume] in Blood by Automated count 197 10*3/uL 150-400 [facility] Differential cell count method - Blood [facility] Neutrophils/100 leukocytes in Blood by Automated count 84 % [facility] Lymphocytes/100 leukocytes in Blood by Automated count 7 % [facility] Monocytes/100 leukocytes in Blood by Automated count 7 % [facility] Eosinophils/100 leukocytes in Blood by Automated count 1 % [facility] Basophils/100 leukocytes in Blood by Automated count 1 % [facility] Neutrophils [#/volume] in Blood by Automated count 10.09 10*3/uL 1.8- 7.0 H [facility] Lymphocytes [#/volume] in Blood by Automated count 0.77 10*3/uL 1.2-4 .0 L [facility] Monocytes [#/volume] in Blood by Automated count 0.85 10*3/uL 0-0.8 H [facility] Eosinophils [#/volume] in Blood by Automated count 0.14 10*3/uL 0-0.5 [facility] Basophils [#/volume] in Blood by Automated count 0.09 10*3/uL 0-0.2 [facility] Nucleated erythrocytes/100 leukocytes [Ratio] in Blood by Automated count 0 /100{WBCs} 0-0 [facility] ID Date Data Source [id number] 10/13/2020 06:31:08 AM [facility] Name Value Range Interpretation Code Description Data Jazmín rce(s) Supporting Document(s) Albumin [Mass/volume] in Serum or Plasma by Bromocresol green (BCG) dye binding method 3.2 g/dL 3.5-5.2 [facility] Bilirubin.total [Mass/volume] in Serum or Plasma 3.5 mg/dL <1.2 H [facility] Confirmed Bilirubin.direct [Mass/volume] in Serum or Plasma 2.9 mg/dL <0.3 H [facility] Alkaline phosphatase [Enzymatic activity/volume] in Serum or Plasma 164 U/L 40-129 H [facility] Aspartate aminotransferase [Enzymatic activity/volume] in Serum or Plasma 46 U/L <40 H [facility] Alanine aminotransferase [Enzymatic activity/volume] in Seru m or Plasma 175 U/L <41 H [facility] Protein [Mass/volume] in Serum or Plasma 6.1 g/dL 6.4-8.3 L [facility] ID Date Data Source [id number] 10/13/2020 06:31:08 AM [facility] Value Range Interpretation Code Description Data Jazmín rce(s) Supporting Document(s) Phosphate [Mass/volume] in Serum or Plasma 3.2 mg/dL 2.5-4.5 [facility] ID Date Data Source [id number] 10/13/2020 06:31:08 AM [facility] Value Range Interpretation Code Description Data Jazmín rce(s) Supporting Document(s) Lipase [Enzymatic activity/volume] in Serum or Plasma 28 U/L 13-6 0 [facility] ID Date Data Source [id number] 10/13/2020 06:31:08 AM [facility] Name Value Range Interpretation Code Description Data Jazmín rce(s) Supporting Document(s) Bicarbonate [Moles/volume] in Serum 18 mmol/L 22-29 L [facility] Chloride [Moles/volume] in Serum or Plasma 106 mmol/L 98-107 [facility] Creatinine [Mass/volume] in Serum or Plasma 3.27 mg/dL 0.70-1.20 H [facility] Icteric Glucose [Mass/volume] in Serum or Plasma 143 mg/dL 70-140 H [facility] Potassium [Moles/volume] in Serum or Plasma 4.9 mmol/L 3.4-5.1 [facility] Sodium [Moles/volume] in Serum or Plasma 139 mmol/L 136-145 [facility] Urea nitrogen [Mass/volume] in Serum or Plasma 61 mg/dL 8-23 H [facility] Anion gap 3 in Serum or Plasma 15 mmol/L 8-15 [facility] Osmolality of Serum or Plasma by calculation 308 mosm/kg 275-300 H [facility] Creatinine/Urea nitrogen [Mass Ratio] in Serum or Plasma 19 [facility] Calcium [Mass/volume] in Serum or Plasma 9.0 mg/dL 8.8-10.2 [facility] Glomerular filtration rate/1.73 sq M pre dicted among non-blacks [Volume Rate/Area] in Serum or Plasma by Creatinine-based formula (MDRD) 17 mL/min/1.73m2 >60 L [facility] Glomerular filtration rate/1.73 sq M pre dicted among blacks [Volume Rate/Area] in Serum or Plasma by Creatinine-based formula (MDRD) 20 mL/min/1.73m2 >60 L [facility] ID Date Data Source [id number] 10/13/2020 06:31:08 AM [facility] Value Range Interpretation Code Description Data Jazmín rce(s) Supporting Document(s) Magnesium [Mass/volume] in Serum or Plasma 1.8 mg/dL 1.6-2.4 [facility] ID Date Data Source [id number] 10/13/2020 06:07:28 AM [facility] Value Range Interpretation Code Description Data Jazmín rce(s) Supporting Document(s) Protein [Mass/volume] in Urine 46 mg/dl [facility] Creatinine [Mass/volume] in Urine 97.9 mg/dL [facility] Protein/Creatinine [Mass Ratio] in Urine 0.47 mg/mg{creat} [facility] ID Date Data Source [id number] 10/13/2020 05:30:40 AM [facility] Value Range Interpretation Code Description Data Jazmín rce(s) Supporting Document(s) Glucose [Mass/volume] in Capillary blood by Glucometer 128 mg/dL 70- 140 [facility] ID Date Data Source [id number] 10/13/2020 01:08:14 AM [facility] Value Range Interpretation Code Description Data Jazmín rce(s) Supporting Document(s) Glucose [Mass/volume] in Capillary blood by Glucometer 132 mg/dL 70- 140 [facility] ID Date Data Source [id number] 10/12/2020 09:33:23 PM [facility] Value Range Interpretation Code Description Data Jazmín rce(s) Supporting Document(s) Glucose [Mass/volume] in Capillary blood by Glucometer 135 mg/dL 70- 140 [facility] ID Date Data Source [id number] 10/13/2020 06:15:55 AM [facility] Service Cmnt XXX-Imp : NoneMicroorganism XXX Cult : Urine NEGATIVE for L. pneumophila serogroup 1 antigen by immunochromatographic assay. This test does not detect infections due to other L. pneumophila serogroups or to other Legionella species. Name Value Range Interpretation Code Description Data Jazmín rce(s) Supporting Document(s) ID Date Data Source [id number] 10/12/2020 06:11:36 PM [facility] Value Range Interpretation Code Description Data Jazmín rce(s) Supporting Document(s) Glucose [Mass/volume] in Capillary blood by Glucometer 132 mg/dL - 140 [facility] ID Date Data Source [id number] 10/12/2020 04:34:22 PM [facility] RENAL OR AORTA COMPLETE [id number] RE SULTInterpreted by:Barak Burnette MDHISTORY: Increasing creatinine.TECHNIQUE: [...] rce(s) Supporting Document(s) ID Date Data Source [id number] 10/12/2020 04:25:11 PM [facility] Name Value Range Interpretation Code Description [facility] DBZVHa6hCqBTUxHt50/PJBdoBXDvo3DzLOmvQMc2QIneNOImP5UmRUT0jH1iILC4ULuRVaAzCrNoEuPz [facility] [file] HARNESS WORKER/DqH9LWeT/b9BRW+QfbErxArUxqKaPb0nadRpvPuTouv9nf95xa6FXy3fLNCLe8qvlo4JFbWwCG1Si [file] WN3OZYm= ID Date Data Source [id number] 10/12/2020 04:05:00 PM [facility] Name Value Range Interpretation Code Description Data Jazmín e(s) Supporting Document(s) [facility] ANEMCr8uKhOQLaWpp4QnLmNxURDfOY9lmsj8J9S2dLQkT0GdxLFrw5upI6JvK2SoXACwJFXECM4AqHUp jb2 [file] 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/TrgK0ef3nkk8qW/yaZLvnpTAlyhp/GWT74 [file] O3hV3/bx92107Wn8q1/54Kbbgl8QA57/s1/8hb9+l+H3r7/9+u9+9v2XH//6m5/+/KsvP/72R9/85Gdf fvzzX/7kP/+H6cSgsU7+7M/46id/9+d/Zlm43j/7h5 606c8Jo/zyF7/60bdf/tZWP9k9/c/nO9k17t0+qe0H/8evv/mBuciW+cO2//dw1HdMD4ilQ/78b//2Bx 83+c9ff/PdL7/5wT/50ZcZUhl5lb/f/PLLz3/4bj195h7NG0268KvfgmM0H1eO64Qdp/zkj3/4r7/70+ 9/+y9f/q///Low//03f/hv/+M3v/vrLz/+0+9+84cv //QfXjbgf/qPX/74hy/dy0dz8NezJ0n0Du194C7+8e8+ykSfIH6Lp//93/opM2m0DKB0TgH//3voDWtd fX9+6i1JgWwuayx/6zqHD3jg4Msh4+9+zo7+zRUc1mlJPi/2AzG03J0+1tKPs6N/dkzij1Cb9au/+ts/ /wvr0weetwktMf/69svPfvTT//PrX/3ou69/8qm67d Pvso1//I8NeDhvmo5VeLi60J2/xgGMi0BXU5sB/VNP//vf/uHf/tOXP/6i90908v3q7+UXZc95/+j3/E JWmrrS/8LdQ/mrb7/87g//9ts//a/f/I+/lKyfvg53+/oR0v8k69ome3j59Jg/+Z8fL/+7P/7hz+9vye f+1B60goM2e+//5r98/8/01W4MuTL/9Le/1Mx6icl9 xqINuMy2a4cbOhw76ph6NFX4+lW6Yg5uleEcQ16/8pv/57f/+p4Vbf2t6gKs/05OP8QgB5G2c//0T//x z/46PsQvfvM/Nk4d79z5e0/8z3/+zb9+dLU/+3209Fy/+zPlbaNv//jH3/9w/zwI4MLop//xn3/IFjSP GXELvOrvf/electrician powerhouse//0Pv/vnj8d/dWw06Ov+3f5xa0c+9l //7aNL/csPf/Ttt++s/PWP/m8NIWNZuX72v089JWwa/NKU2Cu6/f//ybvRqV+Wz7+/+s1/++2X8uWP// XzaO/vnubOBt+1f4AFnh2reVv/M+LKy575/Q/fifljx/KMD9jBHDxadlfoC6/71qI0h7Yv/egnP/nlr7 /5+LxY7ozuY4i4H/1/x+VSsIeoffYbaSEtLY6OVD9h y9HkJxV4KWRoo7NiQOywKJb0aPIoXMwmqzEcq5BmcpbeD2Oyz8OdFcQdVMXqDkFuTzp0TFNaWwW5iZOg QzXpGUZcG6HtHOKbKfZ3OfZqIFLEKI5RPKEmpbKmJxTxSJO+KuHuEA1qtwiuTQMpq6WxRHmoVDdmNEVx T2D9uHokECLsP5GhdI81ZYHmE2GpgzJ4VJW3AGMhGq AvTGFzdCAxOSAwIFI+MyYoYF8ywfhfGUBqp8DsUMrgHCK6nG4sQVbHJSDHQOcXSMvxUrO3e20numNJVO RgANDsTM4UvaQvbApcupXheWJwRLX7PeMhNBSbMVVzUbI2DNHDOMDrPYUsXVVcIOKnF7GimVjtKIeQLA IBNFsFEJhyNgMan5D3DIRlkvJLKWCEXISLYKDBXSeJ RBDjSIQ5IMrgHIHlJ0GodzUntKXcUDTGSWbcSemoUGHepL3hmTcyU2LoFEA7m8BhKF6HJ4XySSHbWCAM LNX0s6IrWYQwuflgyuqbJhPhWFVxHDKfJZExTI0Srw1lwCTupsBdELLJNPuvOhpgTQ2btCqaksqdJ7Ot aWVzKSA+EsQcQW2tsh0+YoFaDUAsHge0AGAoZDalEW XzXIBpNQCmV4cmGNPoZbLcHOGmHwAoNP8Yz7LoiHBqYw9falJsMkiVoATfYzmbWWJzCIBgQANwVcKYIG CmHOGrQYUiFWH6HQHkTOKhPVduBRFoATb4EOY7EHSsOZSbIA3xCnYmQGSgVdT3TaPcWZHdTEDkjjKQVT YdJSL1RdzjEjJwFJTqVCWcZUluSASpRLSdQRBuXDI6 NTM5ITDsCcXeOQFtJWEjGFHlCSEzJHWazwKBGKUwHMYzDFJ6IJLfRYVyAEBmMIygYULgRRRoREydCJZa HRIkFF7pPrEfRTLbEJQaUDptWQWiNOQwiqFQCCViQGXaFGNxKCFaISYrHWKiDLffGUUzKADvJCJfOSWs IZCeKL4tJvXtFKCvGVG1HWQvKGVoXPAvzoLEPJLjPM BwKXa8GLRvPZJvXGWgKWzwSHLxXJDwCSO0ZRTpYIGrUZ7dGdIyGECdAVI5NfFbIWHpSYBwvwOTATFsFP RfUES1GuYeDJKcYHGjBPbaSAIsCQIvKAerTBQxXBDePZ9yKaWhARZbHSJtAJdoUOMdFSQjlrKSUQOtXJ AwMTQwNiAwMDAwMCBuIAowMDAwMDczNjMzIDAwMDAw DK1iXsAjPJKzRNO4DWovDKZgMXZmotJRKGTmDWBpPYlpLPZlBRYnNHXgPRfdYWBhFMLlJYO9IROrIGZa AS7xVtLlAIXpTPLtMMJpEvP1ViTtMdDSzEFulVynwjn8BBtdK6b8FMOdVXwsTK2ijzXgRWQuNvnrCa4o lJJ7FPVmSrdXZx5La6IiuwE4gcZfCjc4CGD4QyHlBV8F ID Date Data Source [id number] 10/12/2020 02:32:43 PM [facility] Name Value Range Interpretation Code Description Data Jazmín rce(s) Supporting Document(s) Bicarbonate [Moles/volume] in Serum 18 mmol/L 22-29 L [facility] Chloride [Moles/volume] in Serum or Plasma 105 mmol/L 98-107 [facility] Creatinine [Mass/volume] in Serum or Plasma 3.19 mg/dL 0.70-1.20 H [facility] Icteric Glucose [Mass/volume] in Serum or Plasma 155 mg/dL 70-140 H [facility] Potassium [Moles/volume] in Serum or Plasma 5.0 mmol/L 3.4-5.1 [facility] Sodium [Moles/volume] in Serum or Plasma 138 mmol/L 136-145 [facility] Urea nitrogen [Mass/volume] in Serum or Plasma 65 mg/dL 8-23 H [facility] Anion gap 3 in Serum or Plasma 16 mmol/L 8-15 H [facility] Osmolality of Serum or Plasma by calculation 308 mosm/kg 275-300 H [facility] Creatinine/Urea nitrogen [Mass Ratio] in Serum or Plasma 20 [facility] Calcium [Mass/volume] in Serum or Plasma 9.1 mg/dL 8.8-10.2 [facility] Glomerular filtration rate/1.73 sq M pre dicted among non-blacks [Volume Rate/Area] in Serum or Plasma by Creatinine-based formula (MDRD) 18 mL/min/1.73m2 >60 L [facility] Glomerular filtration rate/1.73 sq M pre dicted among blacks [Volume Rate/Area] in Serum or Plasma by Creatinine-based formula (MDRD) 21 mL/min/1.73m2 >60 L [facility] ID Date Data Source [id number] 10/12/2020 02:32:43 PM [facility] Name Value Range Interpretation Code Description Data Jazmín rce(s) Supporting Document(s) Troponin T.cardiac [Mass/volume] in Serum or Plasma 0.03 ng/mL <0.01 H [facility] ID Date Data Source [id number] 10/12/2020 02:02:06 PM [facility] Name Value Range Interpretation Code Description Data Jazmín rce(s) Supporting Document(s) Glucose [Mass/volume] in Capillary blood by Glucometer 134 mg/dL 70- 140 [facility] ID Date Data Source [id number] 10/12/2020 12:33:37 PM [facility] Value Range Interpretation Code Description Data Jazmín rce(s) Supporting Document(s) History and Physical [facility] [id number]/BRVbqCNCkq9MtHSplXNw6TPjfFZEzT1EgCZR1lB4qIGL9RYqFUxLbOwBmWgDl lbm [file] AgICAgICAgICAgICAgICAgICAgICAgICAgICAgICAgICAgICAgICAgICAgICAgICAgICAgICAgICAgIC KlQHWzUHHlIE7AQNKkVCVnBNNwTAOcDKFnYLQhFMJg ICAgICAgICAgICAgICAgICAgICAgICAgICAgICAgICAgICAgICAgICAgICAgICAgICAgICAgICAgICAg UQLqBSBwAZWvFBAoKBCkRWSzWP8IFQSfFCCuZHWmCIGtDROpSHPgFRQhSQRuPSPcAHObTZYjXYCsCECi ICAgICAgICAgICAgICAgICAgICAgICAgICAgICAgIC RmAXVrKSMuIDOoWVUbIGUkCJJePRFxHDBtWRKrLJ9RFYTvJFRiTXMyMTKeKLYtALZeEKHfUUIjPSHrUY AgICAgICAgICAgICAgICAgICAgICAgICAgICAgICAgICAgICAgICAgICAgICAgICAgICAgICAgICAgIC ZlTFPjVBDzBTKvQK0PPTKkZGUjRNJoRHPlWWWcAPVf ICAgICAgICAgICAgICAgICAgICAgICAgICAgICAgICAgICAgICAgICAgICAgICAgICAgICAgICAgICAg TMNjIPMtGUCtJPEaTHNbFSMkJINwEM1EKAKzXHJnBOEtWEMzXMLpMZEoGYGcYVNpTXWgUJGxLJRuQFAl ICAgICAgICAgICAgICAgICAgICAgICAgICAgICAgIC YdLKJtFLOnVNEbYOFrDEZvTIMwRGCzDEQhEMOqAUAjQY8VVBIyTAWhOZSmVDRgPUZqCGDkVKVhEZMgFG AgICAgICAgICAgICAgICAgICAgICAgICAgICAgICAgICAgICAgICAgICAgICAgICAgICAgICAgICAgIC BpTBCwXAFqBQFbGSAfZI8TCADiLZQqUMGlFGZvTAZm ICAgICAgICAgICAgICAgICAgICAgICAgICAgICAgICAgICAgICAgICAgICAgICAgICAgICAgICAgICAg VSMyFPDdJPZsDWEwHSXlWKOyWQCeXDSxLQ2UJZMwVHXrPJMsWIRdCRDiVTYgWMHoAVLrWTLiOXPpPBWl ICAgICAgICAgICAgICAgICAgICAgICAgICAgICAgIC TpCREmLGOhAYUzLYGnPDIdLCHfIARgZCKnUKXiKOYtDSVnKN6UDSElBBBtTHOhQTRbHGDiCPRhVOJdZI AgICAgICAgICAgICAgICAgICAgICAgICAgICAgICAgICAgICAgICAgICAgICAgICAgICAgICAgICAgIC ShCBEdWYUsDRIoCLTcYQOoJU7PXD18jKRlm5T6BAWi EL1dzlu/Xw9WXFfksdIksRSnBH8ZRbYcFQ2zoe2LOiJeUO7qpa3GTWmIUeVbX6C2pEGmUXXvPNFYKqGl M44nQTmmRf86XEwfCDChVpQvPLf1Tg0HHsEsQ7psIGKxJbM2CSGrMgT2VFDuDwC2PGDmMgFjJAAwWNYy MPSwXSFCZAB0PSGpJkWaVPtnRE7Oo8YhyHO7UTj+Pg 1MDU9ug7JkHRpdXGSmKQ0fem4DLYrYUlShC2NnykF2JSS0CENxWw8FFLQmJJUbpJUsYzPmNGCLCoLsD8 YrzX88FTAOHn7+EEuenuCxFboOOrW7GXLyf9IfKYz1KD1WNBFnSCp9kCZyCQBUEMJ4EVRtGSAcvmXHfJ JlnbatIYDfCKSlGr0lGN0oCCKrVSW1ZpH5RFVPAJ5I OTKzKMYedNToUBLbIULYNP3VVUmaISC7QYEoilBchAQiNIliQW6HNNVodwApIqPsVZZLKXj+Yw8HVP6s m3ChGEncFdPuHY1rxt6PEVkOKgVjL3Z9kMFeE4I4ODylXv5AVGPcNJJtGiIrTWJUZTdfIQ5IPR1mtdE6 MX1RbHYsYHMxKNAnbJQeBNt4R92xsHBzSCkqFK1WVN A+Shawn+Yb6VFFNnWVYbMIKkVzNsRZWERhTpR2KeJ7GJa9NoQ6VbDW37vKvwzyFwCKeyVW0KJF5cBNEbBY BDPO1LbDFltY2ihdSsQSCkUAECIhOfG15lpAFwKINgXXS0MQNaTo3VHGVuA4WwgzDcxSjllcIdNECzOT WYTX9LJUvpnnKdgUQnsPapAN98nKktNS8YHo6BHsTo BS6ftd4VoERlLd4WOWQkVK4HYSKzQNSnEPChUAC7FKDzScZbGRhhRSSzCOKlMSI8RIJvOXVsHV1UWhWg EPBpTpKcYvOeWAWvWKKyvm5GGRDcBZYfUPl9ELRkPYDaBEIxBOvzRMRnTDUcZOL5VDEoJNQkAI9NNqXn ZMLwHDB9BHoyBCWtMLNimr5EKSArBCXzARM9SsFqLJ BrCOHoZZxdCEIpWUQ9ONK9BASlYGHoIS0YPdUqZOIeJLT3QBjsOGNdGMJwie2QOYNrSJArIEf2EIDlKD SpJHDdRZkiZBGsVUI6HLL2BYAgVFTuAM4CKaHcLMRkOTG8SxnyASGzYORrdo0RCKUcPKDiCuU7BVLkTX VoVUJqXNtiJWMdEWR2LSH2EMEdVPYyKQ1BPnYzVJEs TEFuTwCgQAClBLIrnp8AQSYyRUNzCdN8OQYjAFOtTSMjPTzqAZVfIZI0Thk0MURfEXEtKS1FOrDfLLJh OCodOrScPMMxDKXdsm7XFZXiYGZwFxMrZaKoEMDxJTBsWRyjGBHhCGT7BwI5KXUlIVVnCI7RSwCwLRGa LKx8BjOgVPZnQUXrys0NNYSiTROrYOn6XsQlFXOnLQ QmKOxaWLKuSSR4ZJC9KQJqPZIjPC7XKkQcMIBmYmFjHuKkZLYdTEXdwd2LSFCsADDrBXZePGLpGQOvAA RvDAfnCTFlLSCnHXY6WUMdUMOcUN8QIdTnECDvSbO9TZchMLOvRZUbak7CGBFpBUEyMoEdSrOrOFYxJA YkRIlsPCGwYICtOlB8VBHdWWZdQV0ZNcExHMZbXcO2 XXCbMDGfPPDsad1JVUPkABTvNmklPWQyGFHsXSOlOGcjBWVgSAWnTeO5DYYrMSQzEB6FSyUwLKJyFjN9 TaRpLIYxLOWnys4HBYDoPLMyFDHuTGBdGEOsHLJoVPccYAWlBBO4SMF6QWQfUVRjBM8WMfIgXPDnRnN5 XVGkFPQxZARvns4YGSJyMMMwDHe8ZgRnIGTuLSMbHO zwCVDoMXT0OXPkXYKlQSCtTI3OZaNrWAzkGUVPXpi7KSbhQ0u7QMSwTN9YX7Tkp8MhGphoECPWLWcoED 5klzBsIJUmNc3HO6wDAcvfQNeaXSviMtZcQQPgMNeaLXo4CtE7DqAoRLs7ZsMwBv0fYCW8MWJ5C0WkTT Q0BhB5XIHkIFFzJvdzXPE9WLXmCcX9OuGbCC7XLp2NLuV0RLE3sEFkMc8KRfWzKnWYFcGdHK3TBPr= ID Date Data Source [id number] 10/12/2020 10:10:55 AM EST [facility] Name Value Range Interpretation Code Description Data Jazmín rce(s) Supporting Document(s) [facility] BYLQDy3mAhEWIgOx34/HOTjhVFHxw8XmQDntKWn6PWtxZBFkK4PqXOB6iL3qYAK0FUyOGlQwFpInWcAj lbm [file] == ID Date Data Source [id number] 10/12/2020 10:05:47 AM [facility] Name Value Range Interpretation Code Description Data Jazmín rce(s) Supporting Document(s) Glucose [Mass/volume] in Capillary blood by Glucometer 148 mg/dL 70- 140 H [facility] ID Date Data Source [id number] 10/12/2020 09:36:47 AM [facility] Name Value Range Interpretation Code Description Data Jazmín rce(s) Supporting Document(s) Hepatitis C virus Ab [Presence] in Serum or Plasma by Immuno assay Non Reactive [facility] No serological evidence of active infect ion. If recent exposure is suspected, test for HCV RNA. ID Date Data Source [id number] 10/12/2020 06:39:00 AM [facility] Value Range Interpretation Code Description Data Jazmín rce(s) Supporting Document(s) Leukocytes [#/volume] in Blood by Automated count 19.0 10*3/uL 4-10 H [facility] Erythrocytes [#/volume] in Blood by Automated count 3.05 10*6/uL 4.6- 6.1 L [facility] Hemoglobin [Mass/volume] in Blood 10.0 g/dL 13.5-18 L [facility] Hematocrit [Volume Fraction] of Blood by Automated count 31.0 % 4 1-53 L [facility] Erythrocyte mean corpuscular volume [Entitic volume] b y Automated count 101.6 fL 80-96 H [facility] Erythrocyte mean corpuscular hemoglobin [Entitic mass] by Automated count 32.9 pg 27-33 [facility] Erythrocyte mean corpuscular hemoglobin concentration [Mass/volume] by Automated count 32.4 g/dL 32.0-36.0 [facility] distribution width [Ratio] by Automated count 16.3 % 11.5-14.5 H [facility] Platelets [#/volume] in Blood by Automated count 202 10*3/uL 150-400 [facility] Differential cell count method - Blood [facility] Neutrophils/100 leukocytes in Blood by Automated count 90 % [facility] Lymphocytes/100 leukocytes in Blood by Automated count 4 % [facility] Monocytes/100 leukocytes in Blood by Automated count 6 % [facility] Eosinophils/100 leukocytes in Blood by Automated count 0 % [facility] Basophils/100 leukocytes in Blood by Automated count 0 % [facility] Neutrophils [#/volume] in Blood by Automated count 17.12 10*3/uL 1.8- 7.0 H [facility] Lymphocytes [#/volume] in Blood by Automated count 0.67 10*3/uL 1.2-4 .0 L [facility] Monocytes [#/volume] in Blood by Automated count 1.20 10*3/uL 0-0.8 H [facility] Eosinophils [#/volume] in Blood by Automated count 0.01 10*3/uL 0-0.5 [facility] Basophils [#/volume] in Blood by Automated count 0.04 10*3/uL 0-0.2 [facility] Nucleated erythrocytes/100 leukocytes [Ratio] in Blood by Automated count 0 /100{WBCs} 0-0 [facility] ID Date Data Source [id number] 10/12/2020 06:50:25 AM [facility] Name Value Range Interpretation Code Description Data Ajzmín rce(s) Supporting Document(s) Prothrombin time (PT) 17.5 s 12.5-14.9 H [facility] INR in Platelet poor plasma by Coagulation assay 1.41 [facility] Routine intensity oral anticoagulation I NR is typically 2.0-3.0. Target INR must be clinically individualized. ID Date Data Source [id number] 10/12/2020 07:29:22 AM [facility] Value Range Interpretation Code Description Data Jazmín rce(s) Supporting Document(s) Troponin T.cardiac [Mass/volume] in Serum or Plasma 0.03 ng/mL <0.01 H [facility] ID Date Data Source [id number] 10/12/2020 07:29:22 AM [facility] Name Value Range Interpretation Code Description Data Jazmín rce(s) Supporting Document(s) Albumin [Mass/volume] in Serum or Plasma by Bromocresol green (BCG) dye binding method 3.5 g/dL 3.5-5.2 [facility] Bilirubin.total [Mass/volume] in Serum or Plasma 4.6 mg/dL <1.2 H [facility] Calcium [Mass/volume] in Serum or Plasma 8.8 mg/dL 8.8-10.2 [facility] Chloride [Moles/volume] in Serum or Plasma 104 mmol/L 98-107 [facility] Creatinine [Mass/volume] in Serum or Plasma 3.35 mg/dL 0.70-1.20 H [facility] Icteric Glucose [Mass/volume] in Serum or Plasma 156 mg/dL 70-140 H [facility] Alkaline phosphatase [Enzymatic activity/volume] in Serum or Plasma 154 U/L 40-129 H [facility] Potassium [Moles/volume] in Serum or Plasma 4.9 mmol/L 3.4-5.1 [facility] Protein [Mass/volume] in Serum or Plasma 6.4 g/dL 6.4-8.3 [facility] Sodium [Moles/volume] in Serum or Plasma 137 mmol/L 136-145 [facility] Aspartate aminotransferase [Enzymatic activity/volume] in Serum or Plasma 77 U/L <40 H [facility] Urea nitrogen [Mass/volume] in Serum or Plasma 65 mg/dL 8-23 H [facility] Osmolality of Serum or Plasma by calculation 306 mosm/kg 275-300 H [facility] Creatinine/Urea nitrogen [Mass Ratio] in Serum or Plasma 19 [facility] Bicarbonate [Moles/volume] in Serum 20 mmol/L 22-29 L [facility] Alanine aminotransferase [Enzymatic activity/volume] in Seru m or Plasma 281 U/L <41 H [facility] Anion gap 3 in Serum or Plasma 13 mmol/L 8-15 [facility] Glomerular filtration rate/1.73 sq M pre dicted among non-blacks [Volume Rate/Area] in Serum or Plasma by Creatinine-based formula (MDRD) 17 mL/min/1.73m2 >60 L [facility] Glomerular filtration rate/1.73 sq M pre dicted among blacks [Volume Rate/Area] in Serum or Plasma by Creatinine-based formula (MDRD) 19 mL/min/1.73m2 >60 L [facility] ID Date Data Source [id number] 10/12/2020 09:11:02 AM [facility] Value Range Interpretation Code Description Data Jazmín rce(s) Supporting Document(s) Bilirubin.direct [Mass/volume] in Serum or Plasma 4.1 mg/dL <0.3 H [facility] ID Date Data Source [id number] 10/12/2020 09:11:02 AM [facility] Value Range Interpretation Code Description Data Jazmín rce(s) Supporting Document(s) Lipase [Enzymatic activity/volume] in Serum or Plasma 212 U/L 13-6 0 H [facility] ID Date Data Source [id number] 10/12/2020 06:13:24 AM [facility] Value Range Interpretation Code Description Data Jazmín rce(s) Supporting Document(s) Glucose [Mass/volume] in Capillary blood by Glucometer 142 mg/dL 70- 140 H [facility] ID Date Data Source [id number] 10/12/2020 02:01:40 AM [facility] Value Range Interpretation Code Description Data Jazmín rce(s) Supporting Document(s) Glucose [Mass/volume] in Capillary blood by Glucometer 156 mg/dL 70- 140 H [facility] ID Date Data Source [id number] 10/12/2020 12:31:08 AM [facility] Value Range Interpretation Code Description Data Jazmín rce(s) Supporting Document(s) Troponin T.cardiac [Mass/volume] in Serum or Plasma 0.03 ng/mL <0.01 H [facility] ID Date Data Source [id number] 10/11/2020 11:57:20 PM [facility] Value Range Interpretation Code Description Data Jazmín rce(s) Supporting Document(s) History and Physical [facility] JVRREw1nByCIDbVq01/WRQymBVRvf3BuYVjxWRm6XLffYQDrZ4BrQAS5kB6uUBZ3BVrOIkSwNcUzGoM0 lbm YgPipBJdYfQGHxUjzBZkEcKSzbKvrkuMZwOM5PoJP6CLJhJ02aRDTeZEPrO7YxSXF9ADx+Az8DNNJtxO JiYD0WQlzJ6Z4fCycFZk5+Vfc/PAHX2dQZqbr76GzGP/dxIRh5rPG6i8wMUTAgYok32B+/1T4k+uf1D/ DlFQIIr4rQF0Hy5rQN0+lZGVP+434cLw4gfiWr/xb/ jFPPnIzM3/9mlo/39dNg6V/eCxEA5cZPMS8B/6Z1o8caj8UCt+OPIVl1Ik0hj8jEXmGC5rOztBA57Oi2 3J/GqzoR5lplsbjxC8/fEq3tX9pA4Y/w5Ik5/a31FDaaMaZ8oEepI7oY+meZsQjcdSN/Lhg7AssRi4zq d0QaPIkdzaawRiUx0I+5DH4W769CxWpuLJ44MV1b42 dn1nLxe/GuSG1liSJKaUkbGmFzO1bshV1Flgj2JnaTHtCiLVph9vGc3j20F32s8dqKH70OEJ1IV699V0 iCv5WbBYefvGKikIwFry8nQBUObbNt+D54r117+Um+ijN3klM/9N2nQt2ig46/SRtwD3bVRBMIdpck4r 5ojjlH1BfyBh95ly4dJYjOKtLH4qLdUN6IYUbDvK8G EvGqcpQ0IjVpIuly9QcmyRorTbOkyo6/v+x8fp8e8ekcJJunrJY5eRS/Fr2qO51dV3Tp+t6wEziZhIIh UAGv+Bi36eAznY/IwfQtZbLfNYJV7V5CktbKVvWUT7v7qIQ8ZXnU4Ky0ilP+KC3w/OGygB5j6EYe/YSABEL xWpeyndymcmx/doxuz3aGEAzUOxwuhIpPY52YD6Dct [file] L7Dh9uCGXHQl9+TTdjdZQdsKrcYRQQFcK9YAVdQOgbZFPHBv1V ID Date Data Source [id number] 10/11/2020 10:28:31 PM [facility] Name Value Range Interpretation Code Description Data Jazmín rce(s) Supporting Document(s) Glucose [Mass/volume] in Capillary blood by Glucometer 205 mg/dL 70- 140 H [facility] ID Date Data Source [id number] 10/16/2020 11:15:58 AM [facility] Service Cmnt XXX-Imp : LACMicroorganism XXX Cult : No growth 5 days Name Value Range Interpretation Code Description Data Jazmín rce(s) Supporting Document(s) ID Date Data Source [id number] 10/11/2020 10:06:18 PM [facility] Name Value Range Interpretation Code Description Data Jazmín rce(s) Supporting Document(s) Lactate [Moles/volume] in Serum or Plasma 1.8 mmol/l 0.5-2.2 [facility] ID Date Data Source [id number] 10/11/2020 10:00:22 PM [facility] Name Value Range Interpretation Code Description Data Jazmín rce(s) Supporting Document(s) Color of Urine [facility] Clarity of Urine [facility] Specific gravity of Urine by Refractometry automated 1.012 1.003 -1.030 [facility] pH of Urine by Automated test strip 5.0 5.0-8.0 [facility] Protein [Mass/volume] in Urine by Automated test strip 100 mg/dL Neg [facility] Glucose [Mass/volume] in Urine by Automated test strip 50 mg/dL Neg [facility] Ketones [Mass/volume] in Urine by Automated test strip Neg [facility] Bilirubin.total [Presence] in Urine by Automated test strip Negative [facility] Hemoglobin [Presence] in Urine by Automated test strip Neg [facility] Leukocyte esterase [Presence] in Urine by Automated test strip Negative [facility] Nitrite [Presence] in Urine by Automated test strip Negati [facility] Leukocytes [#/area] in Urine sediment by Automated count 0 -5 [facility] Erythrocytes [#/area] in Urine sediment by Automated count 0-3 [facility] Service comment [facility] ID Date Data Source [id number] 10/11/2020 10:00:38 PM [facility] Name Value Range Interpretation Code Description Data Jazmín rce(s) Supporting Document(s) Creatinine [Mass/volume] in Urine 68.0 mg/dl [facility] ID Date Data Source [id number] 10/11/2020 10:00:38 PM [facility] Name Value Range Interpretation Code Description Data Jazmín rce(s) Supporting Document(s) Sodium [Moles/volume] in Urine 50 mmol/L [facility] ID Date Data Source [id number] 10/11/2020 10:00:38 PM [facility] Name Value Range Interpretation Code Description Data Jazmín rce(s) Supporting Document(s) Urea nitrogen [Mass/volume] in Urine 659 mg/dL [facility] ID Date Data Source [id number] 10/11/2020 09:45:27 PM [facility] Value Range Interpretation Code Description Data Jazmín rce(s) Supporting Document(s) pH of Venous blood 7.31 7.36-7.41 L [facility] Carbon dioxide [Partial pressure] in Venous blood 40 mmHg 40-45 [facility] Oxygen [Partial pressure] in Venous blood 34 mmHg [facility] Base excess in Venous blood by calculation [facility] Carbon dioxide, total [Moles/volume] in Venous blood by calculat ion 21 mmol/L [facility] Oxygen saturation in Venous blood 61 % 60-85 [facility] ID Date Data Source [id number] 10/11/2020 09:24:47 PM [facility] XR CHEST FRONTAL ONLY [id number] RESULTI nterpreted by:SIRIA GibbonsPROCEDURE INFORMATION: Exam: XR [...] rce(s) Supporting Document(s) ID Date Data Source [id number] 10/16/2020 11:15:58 AM [facility] Service Cmnt XXX-Imp : RACMicroorganism XXX Cult : No growth 5 days Name Value Range Interpretation Code Description Data Jazmín rce(s) Supporting Document(s) ID Date Data Source [id number] 10/11/2020 07:45:27 PM [facility] US ABDOMEN LIMITED [id number] RESULTInte rpreted by:SIRIA GibbonsPROCEDURE INFORMATION: Exam: US [...] rce(s) Supporting Document(s) ID Date Data Source [id number] 10/11/2020 07:41:00 PM EST [facility] Name Value Range Interpretation Code Description Data Jazmín rce(s) Supporting Document(s) SARS-CoV-2 RNA 2019 nCoV Real-Time RT-PCR: NOT DETECTED [facility] This lab was ordered by [facility] and reported by [facility]. ID Date Data Source [id number] 10/11/2020 08:58:01 PM [facility] Service Cmnt XXX-Imp : NoneRespiratory P CR Panel : PCR ResultsMicroorganism XXX Cult : See Labs Tab for 2019 nCoV RT-PCR resultsHAdV DNA QI MATHEW+non-probe : Not DetectedHCoV [id number] Nph QI MATHEW+non-probe : Not DetectedHCoV HIL7CNG Nph QI MATHEW+non-probe : Not [id number] RNA Nph QI MATHEW+non-probe : Not KgryemjzEOsFIJ90 RNA Upper resp QI MATHEW+probe : Not [...] DNA Nph Q MATHEW+non-probe : Not DetectedB fqmksHE149 DNA Nph MATHEW+non-probe : Not Detected Name Value Range Interpretation Code Description Data Jazmín rce(s) Supporting Document(s) ID Date Data Source [id number] 10/11/2020 08:57:31 PM [facility] Name Value Range Interpretation Code Description Data Jazmín rce(s) Supporting Document(s) Specimen source [Identifier] of Unspecified specimen [facility] SARS-CoV-2 RNA 2019 nCoV Real-Time RT-PCR: NOT DETECTED [facility] Assay Performed [facility] Patients first test for condition [facility] 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 [facility] Patient has symptoms related to condition [facility] When did you start to experience these symptoms [Date and time] [Phen X] [facility] Patient was hospitalized because of this condition [facility] patient was admitted to ICU for condition [facility] Patient resides in a congregate care setting [facility] status [facility] ID Date Data Source [id number] 10/11/2020 07:13:33 PM [facility] Name Value Range Interpretation Code Description Data Jazmín rce(s) Supporting Document(s) ABO and Rh group [Type] in Blood [facility] Blood group antibody screen [Presence] in Serum or Plasma [facility] Performed at [facility], [address] [place] Conf[place] ID Date Data Source [id number] 10/11/2020 10:35:28 PM [facility] Value Range Interpretation Code Description Data Jazmín rce(s) Supporting Document(s) Hemoglobin A1c/Hemoglobin.total in Blood by HPLC 6.4 % 4.0-6.0 H [facility] Glucose mean value [Mass/volume] in Blood Estimated fr om glycated hemoglobin 137 mg/dL <126 H [facility] ID Date Data Source [id number] 10/11/2020 06:25:47 PM [facility] Name Value Range Interpretation Code Description Data Jazmín rce(s) Supporting Document(s) Leukocytes [#/volume] in Blood by Automated count 18.4 10*3/uL 4-10 H [facility] Erythrocytes [#/volume] in Blood by Automated count 3.12 10*6/uL 4.6- 6.1 L [facility] Hemoglobin [Mass/volume] in Blood 10.2 g/dL 13.5-18 L [facility] Hematocrit [Volume Fraction] of Blood by Automated count 31.6 % 4 1-53 L [facility] Erythrocyte mean corpuscular volume [Entitic volume] b y Automated count 101.4 fL 80-96 H [facility] Erythrocyte mean corpuscular hemoglobin [Entitic mass] by Automated count 32.7 pg 27-33 [facility] Erythrocyte mean corpuscular hemoglobin concentration [Mass/volume] by Automated count 32.2 g/dL 32.0-36.0 [facility] E[facility]th[facility] distribution width [Ratio] by Automated count 16.1 % 11.5-14.5 H [facility] Platelets [#/volume] in Blood by Automated count 211 10*3/uL 150-400 [facility] Differential cell count method - Blood [facility] Neutrophils/100 leukocytes in Blood by Automated count 93 % [facility] Lymphocytes/100 leukocytes in Blood by Automated count 2 % [facility] Monocytes/100 leukocytes in Blood by Automated count 5 % [facility] Eosinophils/100 leukocytes in Blood by Automated count 0 % [facility] Basophils/100 leukocytes in Blood by Automated count 0 % [facility] Neutrophils [#/volume] in Blood by Automated count 17.28 10*3/uL 1.8- 7.0 H [facility] Lymphocytes [#/volume] in Blood by Automated count 0.32 10*3/uL 1.2-4 .0 L [facility] Monocytes [#/volume] in Blood by Automated count 0.84 10*3/uL 0-0.8 H [facility] Eosinophils [#/volume] in Blood by Automated count 0.00 10*3/uL 0-0.5 [facility] Basophils [#/volume] in Blood by Automated count 0.01 10*3/uL 0-0.2 [facility] Nucleated erythrocytes/100 leukocytes [Ratio] in Blood by Automated count 0 /100{WBCs} 0-0 [facility] ID Date Data Source [id number] 10/11/2020 06:47:57 PM [facility] Name Value Range Interpretation Code Description Data Jazmín rce(s) Supporting Document(s) Albumin [Mass/volume] in Serum or Plasma by Bromocresol green (BCG) dye binding method 3.9 g/dL 3.5-5.2 [facility] Bilirubin.total [Mass/volume] in Serum or Plasma 4.0 mg/dL <1.2 H [facility] Bilirubin.direct [Mass/volume] in Serum or Plasma 3.6 mg/dL <0.3 H [facility] Alkaline phosphatase [Enzymatic activity/volume] in Serum or Plasma 153 U/L 40-129 H [facility] Aspartate aminotransferase [Enzymatic activity/volume] in Serum or Plasma 135 U/L <40 H [facility] Alanine aminotransferase [Enzymatic activity/volume] in Seru m or Plasma 382 U/L <41 H [facility] Protein [Mass/volume] in Serum or Plasma 6.8 g/dL 6.4-8.3 [facility] ID Date Data Source [id number] 10/11/2020 06:47:57 PM [facility] Value Range Interpretation Code Description Data Jazmín rce(s) Supporting Document(s) Bicarbonate [Moles/volume] in Serum 17 mmol/L 22-29 L [facility] Chloride [Moles/volume] in Serum or Plasma 103 mmol/L 98-107 [facility] Creatinine [Mass/volume] in Serum or Plasma 2.84 mg/dL 0.70-1.20 H [facility] Icteric Glucose [Mass/volume] in Serum or Plasma 237 mg/dL 70-140 H [facility] Potassium [Moles/volume] in Serum or Plasma 5.1 mmol/L 3.4-5.1 [facility] Sodium [Moles/volume] in Serum or Plasma 134 mmol/L 136-145 L [facility] Urea nitrogen [Mass/volume] in Serum or Plasma 63 mg/dL 8-23 [facility] Anion gap 3 in Serum or Plasma 14 mmol/L 8-15 [facility] Osmolality of Serum or Plasma by calculation 304 mosm/kg 275-300 H [facility] Creatinine/Urea nitrogen [Mass Ratio] in Serum or Plasma 22 [facility] Calcium [Mass/volume] in Serum or Plasma 9.1 mg/dL 8.8-10.2 [facility] Glomerular filtration rate/1.73 sq M pre dicted among non-blacks [Volume Rate/Area] in Serum or Plasma by Creatinine-based formula (MDRD) 20 mL/min/1.73m2 >60 L [facility] Glomerular filtration rate/1.73 sq M pre dicted among blacks [Volume Rate/Area] in Serum or Plasma by Creatinine-based formula (MDRD) 24 mL/min/1.73m2 >60 L [facility] ID Date Data Source [id number] 10/11/2020 06:47:57 PM [facility] Value Range Interpretation Code Description Data Jazmín rce(s) Supporting Document(s) Troponin T.cardiac [Mass/volume] in Serum or Plasma 0.02 ng/mL <0.01 H [facility] ID Date Data Source [id number] 10/11/2020 06:56:27 PM EST [facility] Name Value Range Interpretation Code Description Data Jazmín rce(s) Supporting Document(s) Lipase [Enzymatic activity/volume] in Serum or Plasma 1966 U/L 13-6 0 H [facility] Confirmed ID Date Data Source [id number] 10/11/2020 09:41:08 PM EST [facility] Name Value Range Interpretation Code Description Data Jazmín rce(s) Supporting Document(s) Magnesium [Mass/volume] in Serum or Plasma 1.9 mg/dL 1.6-2.4 [facility] ID Date Data Source [id number] 10/11/2020 09:41:08 PM [facility] Name Value Range Interpretation Code Description Data Jazmín rce(s) Supporting Document(s) Triglyceride [Mass/volume] in Serum or Plasma 55 mg/dL <150 [facility] ID Date Data Source [id number] 10/11/2020 09:41:08 PM [facility] Name Value Range Interpretation Code Description Data Jazmín rce(s) Supporting Document(s) Phosphate [Mass/volume] in Serum or Plasma 4.5 mg/dL 2.5-4.5 [facility] ID Date Data Source [id number] 10/11/2020 02:08:00 PM EST [facility] Name Value Range Interpretation Code Description Data Jazmín rce(s) Supporting Document(s) SARS coronavirus 2 RNA [Presence] in Res piratory specimen by MATHEW with probe detection NEGATIVE [facility]SDMT This lab was ordered by [facility] a nd reported by [facility]. Procedure Social History Code Duration Value Status Description Data Source(s ) Smoking 04/26/2021 12:00:00 AM EDT Ex-smoker (finding) complet ed Ex-smoker (finding) [facility] Smoking 04/21/2021 12:00:00 AM EDT - 08/14/2009 12:00:00 AM EST Patient is a former smoker completed Patient is a former smoker MEDENT ([facility]) Alcohol intake 04/09/2021 12:00:00 AM EDT Ex-drinker (finding) comp leted Ex- drinker (finding) [facility] Alcohol intake 04/05/2021 12:00:00 AM EDT Current drinker of al cohol (finding) completed Current drinker of alcohol (finding) [facility] Smoking 01/20/2021 12:00:00 AM EDT Ex-smoker (finding) complet ed Ex-smoker (finding) [facility] ([facility]) Alcohol intake 12/30/2020 12:00:00 AM EDT Ex-drinker (finding) comp leted Ex- drinker (finding) [facility] Tobacco use and exposure 12/30/2020 12:00:00 AM EDT Never used co mpleted Never used [facility] Cigarette pack-years 12/30/2020 12:00:00 AM EDT UNK completed [facility] Cigarettes smoked current (pack per day) - Reported 12/31/19 12:00:00 AM EDT UNK completed [facility] Smoking 12/30/2020 12:00:00 AM EDT Former smoker completed Former smoker [facility] Smoking 12/24/2020 12:00:00 AM EDT Ex-smoker (finding) complet ed Ex-smoker (finding) [place] ([facility]) Alcohol intake 11/26/2020 12:00:00 AM EDT Ex-drinker (finding) comp leted Ex- drinker (finding) [facility] 11/25/2020 12:39:35 PM EDT Former Smoker completed Former Smoker [facility] 11/25/2020 12:39:35 PM EDT Cigarettes completed Cigarette s [facility] 11/25/2020 12:39:35 PM EDT Former Smoker completed Former Smoker [facility] 11/25/2020 12:39:35 PM EDT [facility]igarettes [facility] Sm[facility] 11/25/2020 12:39:00 PM EDT Ex-smoker (finding) complet ed Ex-smoker (finding) [facility] Smoking 11/25/2020 12:39:00 PM EDT Ex-smoker (finding) complet ed [facility] Sm[facility] 10/27/2020 12:00:00 AM EDT Never smoked tobacco (findi ng) completed Never smoked tobacco (finding) [place] ([facility]) Alcohol intake 10/12/2020 12:00:00 AM EST Ex-drinker (finding) comp leted Ex- drinker (finding) [facility] Smoking 09/17/2020 12:00:00 AM EST Never smoked tobacco (findi ng) completed Never smoked tobacco (finding) [place] ([facility]) Smoking 05/12/2020 12:00:00 AM EDT Ex-smoker (finding) complet ed Ex-smoker (finding) [facility] ([facility]) Vital Signs ID Date Data Source UNK Name Value Range Interpretation Code Description Data Source(s) Systolic blood pressure 140 mm[Hg] 140 mm[Hg] [facility] Diastolic blood pressure 60 mm[Hg] 60 mm[Hg] [place] ([facility]) Systolic blood pressure 144 mm[Hg] 144 mm[Hg] [facility]) Diastolic blood pressure 66 mm[Hg] 66 mm[Hg] [place] ([facility]) Heart rate 75 /min 75 /min [place] ([facility] Heart rate rhythm 1 1 [place] ([facility]) Respiratory rate 18 /min 18 /min [facility] ([facility]) Body temperature 97.2 [degF] 97.2 [degF] [facility] ([facility]) Body height 66 [in_i] 66 [in_i] [facility] ([facility]) Body weight 178 [lb_av] 178 [lb_av] [facility] Body mass index (BMI) [Ratio] 28.7 kg/m2 28.7 k g/m2 [place] ([facility]) Body surface area Derived from formula 1.90 m2 1.90 m2 [place] ([facility]) PhenX - pain, abdominal - type and intensity protocol 0 0 [place] ([facility]) Oxygen saturation in Arterial blood by Pulse oximetry 98 % 98 % [facility] ([facility]) Body temperature 95.9 [degF] 95.9 [degF] MEDENT ([facility]) Systolic blood pressure 147 mm[Hg] 147 mm[Hg] [facility] Diastolic blood pressure 66 mm[Hg] 66 mm[Hg] [facility] Heart rate 82 /min 82 /min [facility] Respiratory rate 16 /min 16 /min [facility] Oxygen saturation in Arterial blood by Pulse oximetry 99 % 99 % [facility] Body temperature 36.44 Lucia 36.44 Lucia [facility] Body height 168.9 cm 168.9 cm [facility] Body weight 82 kg 82 kg [facility] Body mass index (BMI) [Ratio] 28.74 kg/m2 28.74 kg/m2 [facility] Systolic blood pressure 152 mm[Hg] 152 mm[Hg] [facility] Diastolic blood pressure 69 mm[Hg] 69 mm[Hg] [facility] Heart rate 66 /min 66 /min [facility] Body height 168.9 cm 168.9 cm [facility] Body weight 81.965 kg 81.965 kg [facility] Body mass index (BMI) [Ratio] 28.73 kg/m2 28.73 kg/m2 [facility] Oxygen saturation in Arterial blood by Pulse oximetry 98 % 98 % [facility] Systolic blood pressure 190 mm[Hg] 190 mm[Hg] M EDENT ([facility]) Diastolic blood pressure 90 mm[Hg] 90 mm[Hg] MEDENT ([facility]) Heart rate 78 /min 78 /min [facility] ([facility] Body weight 183.00 [lb_av] 183.00 [lb_av] MEDEN T ([facility]) Body temperature 96.8 [degF] 96.8 [degF] MEDENT ([facility]) Body weight 83.009 kg 83.009 kg [facility] ([facility] Body height 68 [in_i] 68 [in_i] [facility] ([facility] 5'8" Body mass index (BMI) [Ratio] 27.8 kg/m2 27.8 k g/m2 MEDENT ([facility]) Systolic blood pressure 170 mm[Hg] 170 mm[Hg] M EDENT ([facility]) Diastolic blood pressure 66 mm[Hg] 66 mm[Hg] MEDENT ([facility]) Body temperature 97.7 [degF] 97.7 [degF] MEDENT ([facility]) Systolic blood pressure 138 mm[Hg] 138 mm[Hg] G [place] ([facility]) Diastolic blood pressure 70 mm[Hg] 70 mm[Hg] [facility] Heart rate 65 /min 65 /min [facility] ([facility] Heart rate rhythm 1 1 [place] ([facility]) Respiratory rate 18 /min 18 /min [place] ([facility]) Body temperature 96.8 [degF] 96.8 [degF] [facility] ([facility]) Body weight 184.5 [lb_av] 184.5 [lb_av] [place] ([facility]) PhenX - pain, abdominal - type and intensity protocol 0 0 [place] ([facility]) Oxygen saturation in Arterial blood by Pulse oximetry 97 % 97 % [place] ([facility]) Inhaled oxygen flow rate 0 L/min 0 L/min [place] ([facility]) Inhaled oxygen concentration 21 % 21 % [place] ([facility]) Heart rate 77 /min 77 /min MEDENT ([facility] Body temperature 98.9 [degF] 98.9 [degF] MEDENT ([facility]) Body height 68 [in_i] 68 [in_i] [facility] 5'8" Body weight 183.31 [lb_av] 183.31 [lb_av] MEDEN T ([facility]) Body weight 83.148 kg 83.148 kg MEDENT ([facility] Oxygen saturation in Arterial blood by Pulse oximetry 97 % 97 % MEDENT ([facility]) Body mass index (BMI) [Ratio] 27.9 kg/m2 27.9 k g/m2 MEDENT ([facility]) Systolic blood pressure 140 mm[Hg] 140 mm[Hg] G [facility] [facility] Diastolic blood pressure 58 mm[Hg] 58 mm[Hg] [facility] Heart rate 64 /min 64 /min [place] ([facility] Heart rate rhythm 1 1 [place] ([facility]) Respiratory rate 18 /min 18 /min [place] ([facility]) Body temperature 98 [degF] 98 [degF] [place] ([facility]) Body weight 177 [lb_av] 177 [lb_av] M[facility]ON ([facility]) PhenX - pain, abdominal - type and intensity protocol 0 0 [place] ([facility]) Oxygen saturation in Arterial blood by Pulse oximetry 97 % 97 % [facility] ([facility]) Inhaled oxygen flow rate 0 L/min 0 L/min [facility] ([facility]) Inhaled oxygen concentration 21 % 21 % [facility] ([facility]) Body height 167.64 cm 167.64 cm [facility] Body weight 83.57 kg 83.57 kg [facility] Body temperature 98.2 [degF] 98.2 [degF] [facility] Heart rate 78 /min 78 /min [facility] Oxygen saturation in Arterial blood by Pulse oximetry 98 % 98 % [facility] Systolic blood pressure 148 mm[Hg] 148 mm[Hg] [facility] Diastolic blood pressure 60 mm[Hg] 60 mm[Hg] [facility] Body mass index (BMI) [Ratio] 29.7 kg/m2 29.7 k g/m2 [facility] Body height 167.64 cm 167.64 cm [facility] Body weight 83.57 kg 83.57 kg [facility] Body temperature 98.2 [degF] 98.2 [degF] [facility] Heart rate 78 /min 78 /min [facility] Oxygen saturation in Arterial blood by Pulse oximetry 98 % 98 % [facility] Systolic blood pressure 148 mm[Hg] 148 mm[Hg] [facility] Diastolic blood pressure 60 mm[Hg] 60 mm[Hg] [facility] Body mass index (BMI) [Ratio] 29.7 kg/m2 29.7 k g/m2 [facility] Systolic blood pressure 144 mm[Hg] 144 mm[Hg] [facility] Diastolic blood pressure 56 mm[Hg] 56 mm[Hg] [facility] ([facility]) PhenX - pain, abdominal - type and intensity protocol 0 0 [facility] ([facility]) Oxygen saturation in Arterial blood by Pulse oximetry 98 % 98 % [facility] ([facility]) Inhaled oxygen flow rate 0 L/min 0 L/min [facility] ([facility]) Inhaled oxygen concentration 21 % 21 % [place] ([facility]) Systolic blood pressure 158 mm[Hg] 158 mm[Hg] G [place] ([facility]) Diastolic blood pressure 60 mm[Hg] 60 mm[Hg] [place] ([facility]) Heart rate 60 /min 60 /min [facility] ([facility]) Respiratory rate 18 /min 18 /min [place] ([facility]) Body temperature 9.1 [degF] 9.1 [degF] [facility] ([facility]) Body weight 188 [lb_av] 188 [lb_av] [facility] Heart rate 74 /min 74 /min [facility] ([facility]) Oxygen saturation in Arterial blood by Pulse oximetry 97 % 97 % [place] ([facility]) PhenX - pain, abdominal - type and intensity protocol 0 0 [place] ([facility]) unable to obtain vitals due to Covid 19 pandmeic. PhenX - pain, abdominal - type and intensity protocol 0 0 [place] ([facility]) Unable to obtain all vitals due to covid 19 pandemic ID Date Data Source [id number] 01/01/2021 11:47:[address] [facility] Name Value Range Interpretation Code Description Data Source(s) WEIGHT RECORDED 178 lb 178 lb [facility] Body height Measured 68 in 68 in [facility] ID Date Data Source [id number] 12/03/2020 02:16:[address] [facility] Name Value Range Interpretation Code Description Data Source(s) WEIGHT RECORDED 183.4 lb 183.4 lb [facility] Body height Measured 69 in 69 in [facility] ID Date Data Source [id number] 10/17/2020 10:41:58 AM [facility] Name Value Range Interpretation Code Description Data Source(s) WEIGHT RECORDED 198.6 lb 198.6 lb [facility] WEIGHT RECORDED 192.2 lb 192.2 lb [facility] WEIGHT RECORDED 198.41 lb 198.41 lb [facility] Body height Measured 67 in 67 in [facility] TRANSFER FROM [facility] Patient Treatment Plan of Care Planned Activity Planned Date Details Description Data Source (s) Elvia KhanPen 100 UNIT/ML Subcutaneous Solution Pen -injector 04/26/2021 12:00:00 AM EDT ANDERSON ([facility]) OneTouch Ultra Mini w/Device Kit 04/26/2021 12:00:00 AM EDT [facility] ([facility]) OneTouch Ultra In Vitro Strip 04/26/2021 12:00:00 AM EDT ANDERSON ([facility]) OneTouch Delica Lancets 30G Miscellaneous 04/26/2021 12:00:00 AM ED T ANDERSON ([facility]) normal saline flush 0.9 % injection 3 mL 04/09/2021 10:00:00 PM EDT [facility] Magnesium Chloride 0.21626 MEQ/ML / Pota ssium Chloride 0.0497 MEQ/ML / Sodium Acetate 0.0163 MEQ/ML / Sodium Chloride 0.0899 MEQ/ML / Sodium gluconate 5.02 MG/ML Injectable Solution [Normosol-R] 04/09/2021 08:00:00 PM EDT [facility] Albuterol 0.833 MG/ML / Ipratropium Logan 0.167 MG/M L Inhalant Solution 04/09/2021 08:00:00 PM EDT [facility] 10 ML Atropine Sulfate 0.1 MG/ML Prefilled Syringe 04/09/2021 06 :47:36 PM EDT [facility] fentaNYL Citrate (PF) (SUBLIMAZE) injection 25 mcg 04/09/2021 06 :47:36 PM EDT [facility] ondansetron (ZOFRAN) injection 4 mg 04/09/2021 06:47:36 PM EDT [facility] Albuterol 0.83 MG/ML Inhalant Solution 04/09/2021 06:47:36 PM EDT [facility] Racepinephrine 22.5 MG/ML Inhalant Solution 04/09/2021 06:47:36 PM EDT [facility] labetalol (NORMODYNE,TRANDATE) injection 5 mg 04/09/2021 06:47:36 P M EDT [facility] Hydralazine Hydrochloride 20 MG/ML Injectable Solution 04/09/2021 06:47:36 PM EDT [facility] HYDROmorphone (DILAUDID) injection 0.5 mg 04/09/2021 06:47:36 PM ED T [facility] carvedilol 25 MG Oral Tablet 03/01/2021 12:00:00 AM EDT ANDERSON ([facility]) ezetimibe 10 MG Oral Tablet 01/29/2021 12:00:00 AM EDT [place] ([facility]) Basaglar KwikPen 100 UNIT/ML Subcutaneous Solution Pen -injector 12/24/2020 12:00:00 AM EDT [facility] ([facility]) Nitroglycerin 0.4 MG Sublingual Tablet [Nitrostat] 11/16/2020 [facility] Nitroglycerin 0.4 MG Sublingual Tablet 10/21/2020 12:00:00 AM [facility] Levofloxacin 750 MG Oral Tablet 10/19/2020 12:00:00 AM [facility] irbesartan 300 MG Oral Tablet 10/19/2020 12:00:00 AM [facility] carvedilol 25 MG Oral Tablet 10/18/2020 12:00:00 AM [facility] carvedilol 3.125 MG Oral Tablet 10/18/2020 12:00:00 AM [facility] Vancomycin 125 MG Oral Capsule 10/18/2020 12:00:00 AM [facility] Saccharomyces boulardii 250 MG Oral Capsule 10/18/2020 12:00:00 AM [facility] Hydralazine Hydrochloride 25 MG Oral Tablet 10/18/2020 12:00:00 AM [facility] POLYETHYLENE GLYCOL 3350 142 MG/ML Oral Solution 10/15/2020 01:20:2 1 PM [facility] Aspirin 81 MG Chewable Tablet 10/12/2020 09:00:00 AM [facility] heparin (porcine) 5000 UNIT/ML injection 5,000 Units 021 09:00:00 AM [facility] Nitroglycerin 0.4 MG Sublingual Tablet 10/11/2020 10:12:14 PM [facility] Glucagon 1 MG Injection 10/11/2020 08:55:55 PM [facility] Glucose 0.417 MG/MG Oral Gel 10/11/2020 08:55:55 PM [facility] dextrose 50 % IV solution 25 mL 10/11/2020 08:55:54 PM [facility] pantoprazole 40 MG Delayed Release Oral Tablet 09/17/2020 12:00:00 AM [facility] ([facility]) carvedilol 25 MG Oral Tablet 09/17/2020 12:00:00 AM [facility] ([facility]) Nitroglycerin 0.4 MG Sublingual Tablet 09/17/2020 12:00:00 AM [facility] ([facility]) OneTouch Ultra In Vitro Strip 08/28/2020 12:00:00 AM [facility] ([facility]) ezetimibe 10 MG Oral Tablet 08/04/2020 12:00:00 AM [facility] ([facility]) Basaglar KwikPen 100 UNIT/ML Subcutaneous Solution Pen -injector 05/12/2020 12:00:00 AM EDT [facility] ([facility]) carvedilol 25 MG Oral Tablet 04/27/2020 12:00:00 AM EDT [place] ([facility]) pantoprazole 40 MG Delayed Release Oral Tablet 04/27/2020 12:00:00 AM ED [place] ([facility]) Basaglar KwikPen 100 UNIT/ML Subcutaneous Solution Pen -injector 04/03/2020 12:00:00 AM EDT [facility] ([facility]) OneTouch Ultra In Vitro Strip 03/18/2020 12:00:00 AM ED [place] ([facility]) Nitroglycerin 0.4 MG Sublingual Tablet [Nitrostat] 02/08/2020 12 :00:00 AM ED [place] ([facility]) carvedilol 25 MG Oral Tablet 11/08/2019 12:00:00 AM EDT [place] ([facility]) pantoprazole 40 MG Delayed Release Oral Tablet 11/08/2019 12:00:00 AM ED [place] ([facility]) Nystatin 100 UNT/MG Topical Powder 01/10/2019 12:00:00 AM EDT [facility] [facility] Sure Comfort Pen [place] 31G X 8 MM Miscellaneous 03/10/2017 12: 00:00 AM EDT [place] ([facility]) Ascorbic Acid 60 MG / Beta Carotene 5000 UNT / Copper Sulfate 40 MG / dl-alpha tocopheryl acetate 30 UNT / Sodium Selenite 0.04 MG / Zinc Oxide 40 MG Oral Tablet 06/10/2016 12:00:00 AM EDT [facility] Aspirin 81 MG Delayed Release Oral Tablet 06/09/2016 12:00:00 AM ED T [facility] 200 ACTUAT Albuterol 0.09 MG/ACTUAT Metered Dose Inhal er [ProAir] 05/29/2015 12:00:00 AM EDT [facility] [facility] albuterol (PROVENTIL HFA;VENTOLIN HFA) 108 (90 Base) MCG/ACT inhale r [facility] Insulin Glargine 100 UNT/ML Injectable Solution [facility] Losartan Potassium 25 MG Oral Tablet [facility] carvedilol 25 MG Oral Tablet [facility] Hydrochlorothiazide 12.5 MG / Losartan Potassium 100 MG Oral Tablet [facility]
[2021-06-24] MEDS ORDERED: FUROSEMIDE 100MG/10ML VIAL (J1940) IV ONE (21:20)
[2021-06-24] MEDS ORDERED: MAALOX 30 ML SUSP *UDC PO PRN (22:05)
[2021-06-24] MEDS ORDERED: MOM 30ML SUSPENSION UDC PO PRN (22:05)
[2021-06-24] MEDS ORDERED: ACETAMINOPHEN TAB 650MG DOSE (2X325MG) PO PRN (22:05)
[2021-06-24] MEDS ORDERED: DEXTROSE 50% 50 ML SYRINGE IV PRN (22:15)
[2021-06-24] MEDS ORDERED: GLUCOSE 4GM CHEW TABLET PO PRN (22:15)
[2021-06-24] MEDS ORDERED: GLUCAGON INJ 1MG VIAL SC PRN (22:15)
[2021-06-24] MEDS ORDERED: PROAAER10 INH (22:21)
[2021-06-24 22:22] LABS: BASO # 0.1 10^3/uL (0.0-0.2); BASO % 0.9 % (0.0-1.0); EOS # 0.2 10^3/uL (0.0-0.5); EOS % 2.4 % (0.0-3.0); HEMOGLOBIN 11.3 g/dl (13.5-17.5); LYMPH # 0.9 10^3/uL (1.5-5.0); LYMPH % 9.4 % (24.0-44.0); MEAN CORPUSCULAR HEMOGLOBIN 33.9 pg (27.0-33.0); MEAN CORPUSCULAR HGB CONC 32.3 g/dl (32.0-36.5); MEAN CORPUSCULAR VOLUME 105.1 fl (80.0-96.0); MONO # 0.9 10^3/uL (0.0-0.8); MONO % 9.8 % (2.0-8.0); NEUTROPHILS % 77.1 % (36.0-66.0); PLATELET COUNT, AUTOMATED 181 10^3/uL (150-450); RED BLOOD COUNT 3.33 10^6/uL (4.30-6.10); WHITE BLOOD COUNT 9.1 10^3/uL (4.0-10.0)
[2021-06-24] MEDS ORDERED: HOME MED LIST COMPLETE! XX SCH (22:25)
--- OUTSIDE RECORDS SUMMARY | 2021-06-24 22:27 | CCD ---
Author Author [facility] Organization [facility] Address Unknown Phone Unavailable Care Team Providers Care Vegetable Cutter Name Role Phone Patricia ANDRADE Unavailable Unavailable Mateusz CHAPIN Unavailable Unavailable Erik Robert DATA WAREHOUSING SPECIALIST Unavailable Unavailable LoryErik berrios DATA WAREHOUSING SPECIALIST Unavailable Unavailable Lory, Erik Amin DATA WAREHOUSING SPECIALIST Unavailable Unavailable Erik Robert DATA WAREHOUSING SPECIALIST Unavailable Unavailable Erik Robert DATA WAREHOUSING SPECIALIST Unavailable Unavailable Lory, A Eloisa DATA WAREHOUSING SPECIALIST Unavailable Unavailable Yolo, A Eloisa DATA WAREHOUSING SPECIALIST Unavailable Unavailable Yolo, A Eloisa DATA WAREHOUSING SPECIALIST Unavailable Unavailable Yolo, A Eloisa DATA WAREHOUSING SPECIALIST Unavailable Unavailable Lory, A Eloisa DATA WAREHOUSING SPECIALIST Unavailable Unavailable Yolo, A Eloisa DATA WAREHOUSING SPECIALIST Unavailable Unavailable Lory, A Eloisa DATA WAREHOUSING SPECIALIST Unavailable Unavailable Yolo, A Eloisa DATA WAREHOUSING SPECIALIST Unavailable Unavailable Yolo, A Eloisa DATA WAREHOUSING SPECIALIST Unavailable Unavailable Lory, A Eloisa DATA WAREHOUSING SPECIALIST Unavailable Unavailable Lory, A Eloisa DATA WAREHOUSING SPECIALIST Unavailable Unavailable Lory, A Eloisa DATA WAREHOUSING SPECIALIST Unavailable Unavailable Yolo, A Eloisa DATA WAREHOUSING SPECIALIST Unavailable Unavailable Lory, A Eloisa DATA WAREHOUSING SPECIALIST Unavailable Unavailable Lory, A Eloisa DATA WAREHOUSING SPECIALIST Unavailable Unavailable Lory, A Eloisa DATA WAREHOUSING SPECIALIST Unavailable Unavailable Yolo, A Eloisa DATA WAREHOUSING SPECIALIST Unavailable Unavailable Yolo, A Eloisa DATA WAREHOUSING SPECIALIST Unavailable Unavailable Yolo, A Eloisa DATA WAREHOUSING SPECIALIST Unavailable Unavailable Yolo, A Eloisa DATA WAREHOUSING SPECIALIST Unavailable Unavailable Yolo, A Eloisa DATA WAREHOUSING SPECIALIST Unavailable Unavailable Geurtsen, Aart Unavailable Unavailable Geurtsen, [...] Unavailable Patricia Trejo MD Unavailable Unavailable Patricia Terjo MD Unavailable Unavailable Patricia Trejo MD Unavailable [...] Unavailable Patricia Trejo MD Unavailable Unavailable Patricia Trjeo MD Unavailable Unavailable Patricia Trejo MD Unavailable Unavailable Patricia Trejo MD Unavailable Unavailable Patricia Trejo MD Unavailable Unavailable Patricia Trejo MD Unavailable Unavailable Patricia Trejo MD Unavailable Unavailable SADAF Ramires, Heather Unavailable QUINN CORONA . Unavailable Unavailable Paco, Dutch Goff MD Unavailable [email or web address] Dutch Chilel MD Unavailable [email or web address] Paco, Dutch Goff MD Unavailable [email or web address] Sherman, A Alexandria PA-C Unavailable Unavailable [...] Unavailable Sherman, A Alexandria PA-C Unavailable Unavailable Hserman, A Alexandria PA-C Unavailable Unavailable Sherman, A Alexandria PA-C Unavailable Unavailable Sherman, A Alexandria PA-C Unavailable Unavailable Sherman, A Alexandria PA-C Unavailable Unavailable Sherman, A Alexandria PA-C Unavailable Unavailable Sherman, A Alexandria PA-C Unavailable Unavailable Sherman, A Alexandria PA-C Unavailable Unavailable Sherman, A Alexandria PA-C Unavailable Unavailable Sherman, A Alexandria PA-C Unavailable Unavailable Sherman, A Alexandria PA-C Unavailable Unavailable [place], J Anne DATA WAREHOUSING SPECIALIST Unavailable Unavailable [place], J Anne DATA WAREHOUSING SPECIALIST Unavailable Unavailable [place], J Anne DATA WAREHOUSING SPECIALIST Unavailable Unavailable [place], J Anne DATA WAREHOUSING SPECIALIST Unavailable Unavailable [place], J Anne DATA WAREHOUSING SPECIALIST Unavailable Unavailable [place], J Anne DATA WAREHOUSING SPECIALIST Unavailable Unavailable [place], J Anne DATA WAREHOUSING SPECIALIST Unavailable Unavailable MOEHLE, C LESLEY PA Unavailable [...] SEMEL, Erik SIMMONS MD Unavailable Unavailable SEMEL, Erki SIMMONS MD [...] Unavailable ANAID ZACARIAS MD Unavailable Unavailable ANAID ZACRAIAS MD Unavailable Unavailable Sanchez Baltazar DATA WAREHOUSING SPECIALIST Unavailable Unavailable Sanchez Baltazar DATA WAREHOUSING SPECIALIST Unavailable Unavailable Sanchez Baltazar DATA WAREHOUSING SPECIALIST Unavailable Unavailable Sanchez Baltazar DATA WAREHOUSING SPECIALIST Unavailable Unavailable Surinder De Leon MD Unavailable Unavailable Moises, Surinder Calixto MD Unavailable Unavailable [place], Surinder Calixto MD Unavailable Unavailable Moises, Surinder Calixto MD Unavailable Unavailable [place], Surinder Calixto MD Unavailable Unavailable MoisesSurinder MD Unavailable Unavailable [place], Surinder Calixto MD Unavailable Unavailable Deer LodgeSurinder MD Unavailable Unavailable [place], Surinder Calixto MD Unavailable Unavailable [place], Surinder Calixto MD Unavailable Unavailable Deer LodgeSurinder MD Unavailable Unavailable MoisesSurinder MD Unavailable Unavailable Deer LodgeSurinder MD Unavailable Unavailable MoisesSurinder MD Unavailable Unavailable Deer LodgeSurinder MD Unavailable Unavailable Deer LodgeSurinder MD Unavailable Unavailable [place], Surinder Calixto MD Unavailable Unavailable [place], Surinder Calixto MD Unavailable Unavailable MoisesSurinder MD Unavailable Unavailable MoisesSurinder MD Unavailable Unavailable MoisesSurinder MD Unavailable Unavailable Moises, Surinder Calixto MD Unavailable Unavailable Deer LodgeSurinder MD Unavailable Unavailable [place], Surinder Calixto MD Unavailable Unavailable Moises, Surinder Calixto MD Unavailable Unavailable [place], Surinder Calixto MD Unavailable Unavailable [place], Surinder Calixto MD Unavailable Unavailable MoisesSurinder MD Unavailable Unavailable MoisesSurinder MD Unavailable Unavailable [place], Surinder Calixto MD Unavailable Unavailable Moises, Surinder Calixto MD Unavailable Unavailable [place], Surinder Calixto MD Unavailable Unavailable [place], Surinder Calixto MD Unavailable Unavailable Moises, Surinder Calixto MD Unavailable Unavailable [place], Surinder Cailxto MD Unavailable Unavailable [place], Surinder Calixto MD Unavailable Unavailable [place], Surinder Calixto MD Unavailable Unavailable Moises, Surinder Calixto MD Unavailable Unavailable [place], Surinder Calixto MD Unavailable Unavailable [place], Surinder Calixto MD Unavailable Unavailable [place], Surinder Calixto MD Unavailable Unavailable [place], Surinder Calixto MD Unavailable Unavailable [place], Surinder Calixto MD Unavailable Unavailable [place], Surinder Calixto MD Unavailable Unavailable Moises, Surinder Calixto MD Unavailable Unavailable Moises, Surinder Calixto MD Unavailable Unavailable [place], Surinder Calixto MD Unavailable Unavailable Moises, Surinder Calixto MD Unavailable Unavailable [place], Surinder Calixto MD Unavailable Unavailable Moises, Surinder Calixto MD Unavailable Unavailable [place], Surinder Calixto MD Unavailable Unavailable Moises, Surinder Calixto MD Unavailable Unavailable Moises, Surinder Calixto MD Unavailable Unavailable [place], Surinder Calixto MD Unavailable Unavailable [place], Surinder Calixto MD Unavailable Unavailable Moises, Surinder Calixto MD Unavailable Unavailable [place], Surinder Calixto MD Unavailable Unavailable [place], Surinder Calixto MD Unavailable Unavailable [place], Surinder Calixto MD Unavailable Unavailable Moises, Surinder Calixto MD Unavailable Unavailable [place], Surinder Calixto MD Unavailable Unavailable [place], Surinder Calixto MD Unavailable Unavailable [place], Surinder Calixto MD Unavailable Unavailable SEMEL, Erik [...] is protected by Article 27-F of the [facility] Public Health law. If you continue you may have access to information: Regarding HIV / AIDS; Provided by facilities licensed or operated by the [facility] Office of Mental Health; or Provided by the [facility] Office for People With Developmental Disabilities. If such information is present, then the following [facility] mandated warning applies: This information has [...] law may result in a fine or longterm sentence or both. A general authorization for the release of medical or other information is NOT sufficient authorization for further disc losure. Advance Directives Directive Description Handtools Repairer Paper Tester Status Observation Descr iption Data Source(s) packet [...] [facility] Drug allergy Jflvzgn-SUM-BzX Reductase Inhibitor Stat ins-HMG-CoA Reductase Inhibitor myalgias [facility] Propensity to adverse reactions ASPIRIN Aluminum aspirin Active [facility] Adverse Reaction Adverse Reaction clopidogrel [facility] ([facility]) Drug allergy CLOPIDOGREL BISULFATE CLOPIDOGREL BISULFATE [facility] Family History Family Member Name Family Member Gender Family Member Status Date o f Status Description Data Source(s) Unknown Condition [facility] Unknown Condition [facility] Unknown [facility] Unknown [facility] Unknown [facility] Unknown [facility] Unknown [facility] Unknown Condition [facility] Encounters Encounter Providers Location Date Indications Data Source(s ) Outpatient Attender: Durga De Leon MDReferrer: Carolyn May 06/07/2021 01:07:00 PM EDT - 06/07/2021 01:52:00 PM EDT [facility] Patient discharged. <td ID="encounterTypeDescriptionID0">Kizzy rt Update</td><td>Eloisa Robert NP</td><td></td><td>05/24/2021</td><td>7:51AM</td><td>11:59PM</td><td></td>[facility]kno Attender: Eloisa Robert NP 05/24/2021 07:5 1:00 AM EDT - 05/24/2021 11:59:00 PM EDT [place] ([facility]) Outpatient Attender: Mago Espino MD 1 07:30:46 PM EDT - 05/15/2021 08:57:14 PM EDT [facility] ([facility]) <td ID="encounterTypeDescriptionID0">Chr onic Disease Follow-up</td><td>Eloisa Robert NP</td><td>[facility]</td><td>04/26/2021</td><td>9:44AM</td><td>10:54AM</td><td><content ID="encounterDiagnosisID0-0">Diabetes Mellitus Diabetic Peripheral Neuropathy</content>, <content ID="encounterDiagnosisID0-1">Coronary Artery Disease</content>, <content ID="encounterDiagnosisID0-2">Congestive Heart Failure Diastolic Chronic</content>, <content ID="encounterDiagnosisID0- 3">Chronic Renal Failure</content>, <content ID="encounterDiagnosisID0- 4">Hyperlipidemia</content>, <content ID="encounterDiagnosisID0-5">Hypertension (Systemic)</content>, <content ID="encounterDiagnosisID0-6">Myelodysplastic Syndrome</content>, <content ID="encounterDiagnosisID0-7">Valvular Heart Disease</content></td>Outpatient Attender: Eloisa Robert NP [facility] 04/26/2021 09:44:00 AM EDT - 04/26/2021 [...] 10:00:00 AM EDT [facility] ([facility]) <td ID="encounterTypeDescriptionID0">Kizzy rt Update</td><td>Eloisa Robert NP</td><td></td><td>04/16/2021</td><td>8:58PM</td><td>11:59PM</td><td></td>Unkno Attender: Eloisa Robert NP 04/16/2021 08:5 8:00 PM EDT - 04/16/2021 11:59:00 PM EDT [place] [facility] Attender: IRIS PERDOMO MDReferrer: IRIS AMBROCIO MD MOB-MOB.[facility] 04/05/2021 09:39:45 AM EDT - 04/05/2021 10:38:11 AM EDT [facility] Outpatient Referrer: IRIS PERDOMO MD MOB-MOB.[facility] 03/15 08:45:37 AM EDT - 04/05/2021 08:45:45 AM EDT [facility]C Attender: IRIS PERDOMO MDA dmitter: IRIS PERDOMO MDReferrer: IRIS PERDOMO MD ES1-OR 03/03/2021 10:42:36 AM EDT - 04/09/2021 06:55:00 PM EDT [facility] Patient discharged. Outpatient Attender: IRIS PERDOMO MD Main Office 02/24/2021 09:45:0 0 AM EDT [facility] ([facility]) Outpatient Attender: Norm Trejo MDAttender: JASMINA BLANCHARD MD 01/27/2021 12:00:00 AM [facility] Outpatient<td ID="encounterTypeDescripti onID0">Hospital Follow- up</td><td>Anne Horvath NP</td><td>[facility]</td><td>01/20/2021</td><td>9:00AM</td><td>10:09AM</td><td><content ID="encounterDiagnosisID0-0">Myelodysplastic Syndrome</content>, <content ID="encounterDiagnosisID0-1">Hypertension (Systemic)</content>, <content ID="encounterDiagnosisID0-2">Diabetes Mellitus</content>, <content ID="encounterDiagnosisID0-3">Chronic Renal Failure</content></td> Attender: Anne Horvath NP [facility] 01/20/2021 09:00:00 AM EDT - 01/20/2021 10:09:21 AM EDT Myelodysplastic SyndromeChronic Renal Fa ilureHypertension (Systemic)Diabetes Mellitus [place] ([facility]) Myelodysplastic Syndrome Chronic Renal Failure Hypertension (Systemic) Diabetes Mellitus Unknown<td ID="encounterTypeDescriptionI D0">Chart Update</td><td>Carolyn May DO</td><td></td><td>01/16/2021</td><td>8:47AM</td><td>11:59PM</td><td></td> Attender: Carolyn May 01/16/2021 08:47:00 AM EDT - 01/16/2021 11:59:00 PM EDT [place] ([facility]) Unknown<td ID="encounterTypeDescriptionI D0">Chart Update</td><td>Carolyn Mya DO</td><td></td><td>01/12/2021</td><td>9:12PM</td><td>11:59PM</td><td></td> Attender: Carolyn May 01/12/2021 09:12:00 PM EDT - 01/12/2021 11:59:00 PM EDT [place] ([facility]) Unknown<td ID="encounterTypeDescriptionI D0">Chart Update</td><td>Erica Baltazar NP</td><td></td><td>01/08/2021</td><td>2:00PM</td><td>11:59PM</td><td></td> Attender: Erica Baltazar NP 01/08/2021 02:00:00 PM EDT - 01/08/2021 11:59:00 PM EDT [place] ([facility]) Outpatient Attender: JASMINA BLANCHARD MD [id number] 12/30/2020 12:00:00 AM EDT [facility] Outpatient<td ID="encounterTypeDescripti onID0">Chronic Disease Follow- up</td><td>Carolyn Gomez Lalo COYLE</td><td>[facility]</td><td>12/24/2020</td><td>11:04AM</td><td>12:30PM</td><td><content ID="encounterDiagnosisID0-0">Anemia</content>, <content ID="encounterDiagnosisID0-1">Atrial Fibrillation with Rapid Ventricular Response</content>, <content ID="encounterDiagnosisID0-2">Chronic Renal Failure</content>, <content ID="encounterDiagnosisID0-3">Congestive Heart Failure Diastolic Chronic</content>, <content ID="encounterDiagnosisID0- 4">Coronary Artery Disease</content>, <content ID="encounterDiagnosisID0- 5">Diabetes Mellitus</content>, <content ID="encounterDiagnosisID0- 6">Hyperlipidemia</content>, <content ID="encounterDiagnosisID0-7">Hypertension (Systemic)</content>, <content ID="encounterDiagnosisID0-8">Vitamin D Deficiency</content>, <content ID="encounterDiagnosisID0-9">Acute Cholecystitis</content>, <content ID="encounterDiagnosisID0-10">Acute Pancreatitis Due To Gallstones</content>, <content ID="encounterDiagnosisID0- 11">Myelodysplastic Syndrome</content>, <content ID="encounterDiagnosisID0- 12">Assessment of Feeling Weak</content></td> Attender: Carolyn May [facility] 12/24/2020 11:04:00 AM EDT - 12/24/2020 12:30:45 PM ED T Assessment of Feeling WeakAcute Pancreatitis Due To GallstonesAcute CholecystitisAtrial Fibrillation with Rapid Ventricular ResponseMyelodysplastic SyndromeCongestive Heart Failure Diastolic ChronicChronic Renal FailureAnemiaVitamin D Deficiency Hypertension (Systemic)HyperlipidemiaCoronary Artery DiseaseDiabetes Mellitus [place] ([facility]) Assessment of Feeling Weak Acute Pancreatitis Due To Gallstones Acute Cholecystitis Atrial Fibrillation with Rapid Ventricul ar Response Myelodysplastic Syndrome Congestive Heart Failure Diastolic Chron ic Chronic Renal Failure Anemia Vitamin D Deficiency Hypertension (Systemic) Hyperlipidemia Coronary Artery Disease Diabetes Mellitus Outpatient Attender: Carolyn May 12/24/2020 12:00:00 AM EDT [facility] Outpatient Attender: IZABEL MARSHdmitter: IZABEL Barrett rrer: Anita Hernandez 12/15/2020 12:00:00 AM EDT - 12/15/2020 11:59:00 PM EDT Cholecystitis, unspecified [facility] Cholecystitis, unspecified Outpatient Attender: NORY Jacksonr: Anita Hernandez [id number] 12/11/2020 12:00:00 AM EDT [facility] Outpatient Attender: Anita Hernandez [id number] 11/26/2020 12:00:00 AM EDT - 11/26/2020 01:30:09 PM EDT Cholecystitis, unspecified [facility] Cholecystitis, unspecified Outpatient Attender: Durga De Leon MDReferrer: Carolyn May 11/25/2020 12:32:00 PM EDT - 11/25/2020 01:09:00 PM EDT 8 mo f/u - TXT [facility] 8 mo f/u - TXT CONF Patient discharged. Outpatient<td ID="encounterTypeDescripti onID0">Hospital Follow-up</td><td>Carolyn May DO</td><td>[facility]</td><td>10/27/2020</td><td>4:02PM</td><td>5:13PM</td><td><content ID="encounterDiagnosisID0-0">Acute Cholecystitis</content>, <content ID="encounterDiagnosisID0-1">Chronic Renal Failure</content>, <content ID="encounterDiagnosisID0-2">Acute Pancreatitis Due To Gallstones</content>, <content ID="encounterDiagnosisID0-3">Congestive Heart Failure Diastolic Chronic</content>, <content ID="encounterDiagnosisID0-4">Clostridium Difficile< /content>, <content ID="encounterDiagnosisID0-5">Atrial Fibrillation with Rapid Ventricular Response</content>, <content ID="encounterDiagnosisID0- 6">Anemia</content>, <content ID="encounterDiagnosisID0-7">Myelodysplastic Syndrome</content></td> Attender: Carolyn May [facility] 10/27/2020 04:0 2:00 PM EDT - [...] Inpatient Attender: Denver Chilel MDAttigor er: Jordan GemarcelosenAttender: ANAID ZACARIAS MDAdmitter: ANAID ZACARIAS MDReferrer: ANAID ZACARIAS MDConsultant: Anita Hernandez [id number] 10/11/2020 12:00:00 AM EST - 10/18/2020 01:40:00 PM EST Biliary acute pancreatitis without necrosis or infection [facility] Biliary acute pancreatitis without necro sis or infection Patient discharged. <td ID="encounterTypeDescriptionID0">Kizzy rt Update</td><td>Carolyn May DO</td><td></td><td>10/19/2020</td><td>09/17/2020 4:53PM</td><td>09/17/2020 11:59PM</td><td><content ID="encounterDiagnosisID0-0">Acute Cholecystitis</content>, <content ID="encounterDiagnosisID0-1">Acute Pancreatitis Due To Gallstones</content>, <content ID="encounterDiagnosisID0-2"> Chronic Renal Failure</content>, <content ID="encounterDiagnosisID0- 3">Congestive Heart Failure Diastolic Chronic</content>, <content ID="encounterDiagnosisID0-4">Atrial Fibrillation with Rapid Ventricular Response</content>, <content ID="encounterDiagnosisID0-5">Clostridium Difficile</content></td>Unknown Attender: Carolyn May 021 04:53:00 PM EST - 09/17/2020 11:59:00 PM EST Clostridium DifficileAtrial Fibrillation with Rapid Ventricular ResponseAcute Pancreatitis Due To GallstonesAcute CholecystitisCongestive Heart Failure Diastolic ChronicChronic Renal Failure [place] ([facility]) Clostridium Difficile Atrial Fibrillation with Rapid Ventricul ar Response Acute Pancreatitis Due To Gallstones Acute Cholecystitis Congestive Heart Failure Diastolic Chron ic Chronic Renal Failure Unknown<td ID="encounterTypeDescriptionI D2">Correspondence</td><td>Carolyn May DO</td><td></td><td>09/24/2020</td><td>09/17/2020 11:18AM</td><td>09/17/2020 11:59PM</td><td></td> Attender: Carolyn May 09/17/2020 11:18: 00 AM EST - 09/17/2020 11:59:00 PM EST [place] ([facility]) <td ID="encounterTypeDescriptionID3">[facility] Telehealth FaceTime</td><td>Carolyn May DO</td><td>[facility]</td><td>09/17/2020</td><td>10:44AM</td><td>11:26AM</td><td><content ID="encounterDiagnosisID3-0">Anemia</content>, <content ID="encounterDiagnosisID3-1">Chronic Renal Failure</content>, <content ID="encounterDiagnosisID3-2">Congestive Heart Failure Diastolic Chronic</content>, <content ID="encounterDiagnosisID3-3">Diabetes Mellitus</content>, <content ID="encounterDiagnosisID3-4">Hyperlipidemia</content>, <content ID="encounterDiagnosisID3-5">Hypertension (Systemic)</content></td>Outpatient Attender: Carolynfransico May [facility] 09/17/2020 10:44:00 AM EST - 09/17/2020 11:26:07 AM EST Congestive Heart Failure Diastolic Chron icChronic Renal FailureAnemiaHypertension (Systemic)HyperlipidemiaDiabetes Mellitus [place] ([facility]) Congestive Heart Failure Diastolic Chron ic Chronic Renal Failure Anemia Hypertension (Systemic) Hyperlipidemia Diabetes Mellitus Unknown<td ID="encounterTypeDescriptionI D1">Chart Update</td><td>Carolyn May DO</td><td></td><td>10/13/2020</td><td>09/17/2020 8:58AM</td><td>09/17/2020 11:59PM</td><td></td> Attender: Carolyn May 09/17/2020 08:58: 00 AM EST - 09/17/2020 11:59:00 PM EST [place] ([facility]) <td ID="encounterTypeDescriptionID6">[employer] [facility]</td><td>Sravanthi Burns RN</td><td></td><td>06/08/2020</td><td>05/12/2020 11:17AM</td><td>05/12/2020 11:59PM</td><td></td>Unknown Attender: Sravanthi Burns RN 05/15 11:17:00 AM EDT - 05/12/2020 11:59:00 PM EDT [place] ([facility] ) Outpatient Attender: Durga De Leon MDReferrer: Carolyn Lalo 05/18/2020 03:30:00 PM EDT TXT CONF follow up [facility], TXT CONF follow up Outpatient<td ID="encounterTypeDescripti onID5">Medication Order</td><td>Carolyn May DO</td><td></td><td>08/04/2020</td><td>05/12/2020 4:25PM</td><td>05/12/2020 11:59PM</td><td></td> Attender: Carolyn Lalo 05/12/2020 04:25: 00 PM EDT - 05/12/2020 11:59:00 PM EDT [place] ([facility]) <td ID="encounterTypeDescriptionID7">[facility] Telehealth FaceTime</td><td>Carolyn Gomez Lalo DO</td><td>[facility]</td><td>05/12/2020</td><td>2:17PM</td><td>2:40PM</td><td><content ID="encounterDiagnosisID7-0">Anemia</content>, <content ID="encounterDiagnosisID7-1">Chronic Renal Failure</content>, <content ID="encounterDiagnosisID7-2">Congestive Heart Failure Diastolic Chronic</content>, <content ID="encounterDiagnosisID7-3">Diabetes Mellitus</content>, <content ID="encounterDiagnosisID7-4">Hypertension (Systemic)</content>, <content ID="encounterDiagnosisID7-5">Myelodysplastic Syndrome</content></td>Outpatient Attender: Carolyn May [facility] 05/12/2020 02:17:00 PM EDT - 05/12/2020 02:40:33 PM EDT Myelodysplastic SyndromeMyelodysplastic SyndromeMyelodysplastic SyndromeCongestive Heart Failure Diastolic ChronicCongestive Heart Failure Diastolic ChronicCongestive Heart Failure Diastolic ChronicChronic Renal FailureChronic Renal FailureChronic Renal FailureAnemiaAnemiaAnemiaHypertension (Systemic)Hypertension (systemic)Hypertension (systemic)Diabetes MellitusDiabetes MellitusDiabetes Mellitus [place] ([facility]) Myelodysplastic Syndrome Myelodysplastic Syndrome Myelodysplastic [...] PM EDT - 05/12/2020 11:59:00 PM EDT [place] ([facility]) <td ID="encounterTypeDescriptionID8">Kizzy rt Prep</td><td>Stefany Rees RN</td><td></td><td>05/06/2020</td><td>02/28/2020 11:33AM</td><td>04/03/2020 11:59PM</td><td></td>Unknown Attender: Heather Ramires RN 04/15 11:33:00 AM EDT - 04/03/2020 11:59:00 PM EDT [place] ([facility] ) Unknown<td ID="encounterTypeDescriptionI D9">Chart Update</td><td>Carolyn May DO</td><td></td><td>04/27/2020</td><td>02/28/2020 1:48PM</td><td>04/03/2020 11:59PM</td><td></td> Attender: Carolyn May 04/27/2020 01:48: 00 PM EDT - 04/03/2020 11:59:00 PM EDT [place] ([facility]) Outpatient Attender: Durga De Leon [...] Tdap 04/26/2021 11:02:00 AM EDT completed <td ID="Rbqnrzmiwfaon-Kotpadfmvmg-VX1">Tdap</td><td ID="ImmunizationDose- 0">1</td><td>04/26/2021</td><td ID="Tacujjplziufr-QykevGksd-BP1">Right Deltoid</td><td></td><td ID="Darnmubocikcx-Fzcejn-JD6">Complete (Administered)</td><td>[facility]</td><td ID="Dhfixvlppeshi-Gksdp-Nwfj-Comment-ID0"></td> [place] ([facility]) Moderna COVID-19 10/27/2020 05:12:00 PM EDT completed <td ID="Pqstawpvmmlud-Wecufjrezhy-XE9">Moderna COVID-19</td><td ID="ImmunizationDose-0">1</td><td>10/27/2020</td><td ID="Hrqebrmlwetos-XxpegEfhb-KB1"></td><td></td><td ID="Bgbldtrmlfuoc-Ahabkf-EA8">Complete (Refused - Patient objection)</td><td>[facility]</td><td ID="Hklpcmeyrxfce-Eyfjt-Ufld-Comment-ID0"></td> [place] ([facility]) Medications Medication Brand Name Start Date Product Form Dose Route Admi nistrative Instructions Pharmacy Instructions Status Indications Reaction Description Data Source(s) OneTouch Ultra In Vitro Strip OneTouch Ultra In Vitro Strip 04/26/2021 12:00:00 AM EDT 1 active OneTouch Ultra GR [place]ENWAY ([facility]) OneTouch Delica Lancets 30G Miscellaneous OneTouch Del ica Lancets 30G Miscellaneous 04/26/2021 12:00:00 AM EDT 1 acti ve OneTouch Delica Lancets 30G [place] ([facility]) Basaglar KwikPen 100 UNIT/ML Subcutaneous Solution Pen -injector Basaglar KwikPen 100 UNIT/ML Subcutaneous Solution Pen-injector 04/26/2021 12:00:00 AM EDT active 3 ML insulin glargine 100 UNT/ML Pen Injector [Basaglar] [place] ([facility]) OneTouch Ultra Mini w/Device Kit OneTouch Ultra Mini w/Devic e Kit 04/26/2021 12:00:00 AM EDT 1 active OneTouch Ultra Mini [place] ([facility]) normal saline flush 0.9 % injection 3 mL [id number] 04/09/2021 10:00:00 PM EDT 3 mL Intravenous active 3 mL , Intravenous, Every 8 hours (scheduled), First dose on Mon04/09/21 at 2200, PACU (only)
flush per protocol, D/C Main IV fluid if appropriate
[facility] Medication administered onsite Acetaminophen 325 MG Oral Tablet acetaminophen (TYLENO L) 325 MG tablet 650 mg acetaminophen (TYLENOL) 325 MG tablet 650 mg 04/09/2021 08:00:00 PM EDT 650 mg Oral completed 650 mg, Or al, Once, On Mon04/09/21 at 2000, For 1 dose
"Maximum dose of acetaminophen is 4,000 mg from all sources in 24 hours."
[facility] Medication administered onsite Albuterol 0.833 MG/ML / Ipratropium Brom scott 0.167 MG/ML Inhalant Solution ipratropium-albuterol (DUO-NEB) 0.5-2.5 mg/mL nebulizer solution 3 mL ipratropium-albuterol (DUO-NEB) 0.5-2.5 mg/mL nebulizer solution 3 mL 04/09/2021 08:00:00 PM EDT 3 mL Inhalation active Bronchospasm 3 mL, Inhalation, Once, On Mon04/09/21 at 1999, For 1 dose, PACU (only) [facility] Bronchospasm Medication administered onsite Magnesium Chloride 0.17519 MEQ/ML / Pota ssium Chloride 0.0497 MEQ/ML / Sodium Acetate 0.0163 MEQ/ML / Sodium Chloride 0.0899 MEQ/ML / Sodium gluconate 5.02 MG/ML Injectable Solution [Normosol-R] electrolyte-R (NORMOSOL-R/PLASMALYTE-R) solution electrolyte-R (NORMOSOL-R/PLASMALYTE-R) solution 04/09 08:00:00 PM EDT Intravenous active at 1 50 mL/hr, Intravenous, Continuous, Starting on Mon04/09/21 at 2000, For 1 day, PACU (only) [facility] Medication administered onsite 10 ML Atropine [...] or 0.04 mg/kg. Max of 6 doses
[facility] Medication administered onsite ondansetron (ZOFRAN) injection 4 mg [id number] 04/09/2021 06:47:3 6 PM EDT 4 mg Intravenous active 4 mg, In travenous, Once as needed, nausea, vomiting, if not given in last 4 hours, Starting on Mon04/09/21 at 1847, For 1 dose, PACU (only) [facility] Medication administered onsite Racepinephrine 22.5 MG/ML Inhalant Solut ion racepinephrine HCl (VAPONEFRIN) 2.25 % inhalation solution 1 mL racepinephrine HCl (VAPONEFRIN) 2.25 % i nhalation solution 1 mL 04/09/2021 06:47:36 PM EDT 1 mL Inhalation active PACU (only), 1 mL, Inhalation, Once as needed, 1 dose, Starting on Mon04/09/21 at 1847, Until Mon04/09/21 at 2359 [facility] Medication administered onsite Albuterol 0.83 MG/ML Inhalant Solution a lbuterol (PROVENTIL) nebulizer solution 2.5 mg albuterol (PROVENTIL) nebulizer solution 2.5 mg 2020 06:47:36 PM EDT 2.5 mg active Reversible Obstructive Airway DiseaseRespiratory Distress Syndrome in the NewbornBronchospastic DiseaseAcute Bronchospastic Disease 2.5 mg, Nebulization, Once a s needed, wheezing, Starting on Mon04/09/21 at 1847, For 1 dose, PACU (only) [facility] Reversible Obstructive Airway Disease Respiratory Distress Syndrome in the New born Bronchospastic Disease Acute Bronchospastic Disease Medication administered onsite labetalol (NORMODYNE,TRANDATE) injection 5 mg [id number] 04/09/2021 06:47:36 PM EDT 5 mg Intravenous active 5 mg , Intravenous, Every 5 min PRN, high blood pressure, for SBP greater than 160, Starting on Mon04/09/21 at 1847, For 4 doses, PACU (only)
Max of 20 MG, hold for HR less than 60
[facility] Medication administered onsite HYDROmorphone (DILAUDID) injection 0.5 mg [id number] 04/09/2021 06:47:36 PM EDT 0.5 mg Intravenous active 0.5 mg, Intravenous, Every 5 min PRN, severe pain (7-10), Starting on Mon04/09/21 at 1847, For 5 doses, PACU (only) [facility] Medication administered onsite Hydralazine Hydrochloride 20 [...] PACU (only)
Max dose of 20 mg
[facility] Medication administered onsite fentaNYL Citrate (PF) (SUBLIMAZE) injection 25 mcg [id number] 04/09/2021 06:47:36 PM EDT 25 ug Intravenous active 25 mcg, Intravenous, Every 5 min PRN, moderate pain (4-6), Starting on Mon04/09/21 at 1847, For 12 doses, PACU (only) [facility] Medication administered onsite dextrose 5 % and sodium chloride 0.45 % infusion [id number] 0 04/09/2021 02:00:00 PM EDT 30 mL/h Intravenous active at 30 mL/hr, 30 mL/hr, Intravenous, Continuous, Starting on Mon04/09/21 at 1400, Pre-op
For diabetics with renal failure on hemo dialysis or peritoneal dialysis
[facility] Medication administered onsite normal saline flush 0.9 % injection 3 mL [id number] 04/09/2021 02:00:00 PM EDT 3 mL Intravenous active 3 mL , Intravenous, Every 8 hours (scheduled), First dose on Mon04/09/21 at 1400, Pre-op
Rapid push positive pressure flushing shall be performed with a 10 cc normal saline syringe to check the PATENCY of a PIV site prior to any infusion therapy initiation unless resistance is met.
[facility] Medication administered onsite carvedilol 25 MG [...] ORAL active [facility] ([facility] Epoetin Cameron 71513 UNT/ML Injectable Marycarmen ution Epoetin Cameron 87243 UNIT/ML Injection Solution Epoetin Cameron 19990 UNIT/ML Injection Solution 01/17/20 12:00:00 AM EDT active epoetin cameron 43244 UNT/ML Injectable Solution [place] ([facility] Daily Value Multivitamin Oral Tablet Daily Value Multivitami n Oral Tablet 01/16/2021 12:00:00 AM EDT 1 active Daily Value Multivitamin [place] ([facility]) Finasteride 5 MG Oral Tablet Finasteride 5 MG Oral Tablet 12:00:00 AM EDT 1 aborted finasteride 5 MG Oral Tablet [place] [facility] Sucralfate 1000 MG Oral Tablet Sucralfate 01/13/2021 12:00:00 AM EDT active [facility] ([facility]) Tamsulosin hydrochloride 0.4 MG Oral Capsule Tamsulosi n HCl 0.4 MG Oral Capsule Tamsulosin HCl 0.4 MG Oral Capsule 01/12/2021 12:00:00 AM EDT 1 active tamsulosin hydrochloride 0.4 MG Oral Cap sina [place] [facility] Probiotic Daily Probiotic Daily 01/06/2021 12:00:00 AM EDT ORAL active [facility] ([facility]) Epoetin Cameron 43379 UNT/ML Injectable Solution [Procrit] Proc rit 01/06/2021 12:00:00 AM EDT active M EDENT ([facility]) Basaglar KwikPen 100 UNIT/ML Subcutaneous Solution Pen -injector Basaglar KwikPen 100 UNIT/ML Subcutaneous Solution Pen-injector 12/24/2020 12:00:00 AM EDT active Sensor 3 ML insulin glargine 100 UNT/ML Pen Injector [Basaglar] [place] ([facility]) iohexol (OMNIPAQUE) 240 MG/ML contrast [id number] 12/15/2020 11:09:30 A M EDT completed Code/Trauma Medication, S tarting on Mon12/15/[address] [place] [address] Medication administered onsite lactobacillus combination no.8 (Adult Probiotic) 11/25 12:44:09 PM EDT ORAL active [facility] lactobacillus combination no.8 (Adult Probiotic) 11/25 12:44:09 PM EDT [facility] Ins[facility] Glargine Insulin Glargine (Basag lar Kwikpen U-100 Insulin) 100 unit/mL (3 mL) insulin pen Insulin Glargine (Basaglar Kwikpen U-100 Insulin) 100 unit/mL (3 mL) insulin pen 11/25/2020 12:44:00 PM EDT UNASSIGNED 30 UNIT S UBCUTANEOUSLY active [place] [facility] Insulin Glargine Insulin Glargine (Basag lar Kwikpen U-100 Insulin) 100 unit/mL (3 mL) insulin pen Insulin Glargine (Basaglar Kwikpen U-100 Insulin) 100 unit/mL (3 mL) insulin pen 11/25/2020 12:44:00 PM EDT UNASSIGNED 30 UNIT S UBCUTANEOUSLY active [facility] irbesartan 300 MG Oral Tablet Irbesartan Irbesartan 12:43:29 PM EDT TABLET 300 MG ORAL active [facility] irbesartan 300 MG Oral Tablet Irbesartan Irbesartan 12:43:29 PM EDT TABLET 300 MG ORAL active [facility] Nitroglycerin 0.4 MG Sublingual Tablet [ Nitrostat] Nitrostat 0.4 MG Sublingual Tablet Sublingual Nitrostat 0.4 MG Sublingual Tablet Sublingual 11/17/19 12:00:00 AM EDT completed nitroglycerin 0.4 MG Sublingual Tablet [Nitrostat] [place] ([facility]) Nitroglycerin 0.4 MG Sublingual Tablet N itroglycerin 0.4 MG Sublingual Tablet Sublingual Nitroglycerin 0.4 MG Sublingual Tablet Sublingual 10/12 12:00:00 AM EST active nitroglycerin 0. 4 MG Sublingual Tablet [place] ([facility]) carvedilol 3.125 MG Oral Tablet [...] th every other day for 2 doses [facility] irbesartan 300 MG Oral Tablet Irbesartan 300 MG Oral T ablet (AVAPRO) Irbesartan 300 MG Oral Tablet (AVAPRO) 10/19/2020 12:00:00 AM EST 300 mg Oral active Take 1 tablet by mouth nightly [facility] Saccharomyces boulardii 250 MG Oral Capsule Saccharomy jian boulardii 250 MG Oral Capsule 10/19/2020 12:00:00 AM EST 1 active Saccharomyces boulardii 250 MG Oral Capsule [place] [facility] Hydralazine Hydrochloride 25 MG Oral Tablet hydrALAZIN E HCl 25 MG Oral Tablet hydrALAZINE HCl 25 MG Oral Tablet 10/19/2020 12:00:00 AM EST 1 aborted hydralazine hydrochloride 25 MG Oral Tab let [place] [facility] Levofloxacin 750 MG Oral Tablet levoFLOXacin 750 MG Or al Tablet levoFLOXacin 750 MG Oral Tablet 10/19/2020 12:00:00 AM EST ab orted levofloxacin 750 MG Oral Tablet [place] [facility] Vancomycin 125 MG Oral Capsule Vancomycin HCl 125 MG O ral Capsule Vancomycin HCl 125 MG Oral Capsule 10/19/2020 12:00:00 AM EST 1 aborted vancomycin 125 MG Oral Capsule [place] ([facility]) Saccharomyces boulardii 250 MG Oral Caps ule Saccharomyces boulardii 250 MG Oral Capsule (FLORASTOR) Saccharomyces boulardii 250 MG Oral Capsule (FLORASTOR ) 10/18/2020 12:00:00 AM EST 250 mg Oral active Take 1 capsule by mouth Two Times Daily [facility] Hydralazine Hydrochloride 25 MG Oral Tab let hydrALAZINE HCl 25 MG Oral Tablet (APRESOLINE) hydrALAZINE HCl 25 MG Oral Tablet (APRESOLINE) 021 12:00:00 AM EST 25 mg Oral active Take 1 tablet by mouth every 8 (eight) hours [facility] Vancomycin 125 MG Oral Capsule Vancomycin HCl 125 MG O ral Capsule (VANCOCIN) Vancomycin HCl 125 MG Oral Capsule (VANCOCIN) 10/18/2020 12:00:00 AM EST 125 mg Oral active Take 1 capsule by mouth Four times daily [facility] carvedilol 25 MG Oral Tablet Carvedilol 25 MG Oral Tab let (COREG) Carvedilol 25 MG Oral Tablet (COREG) 10/18/2020 12:00:00 AM EST 25 mg Oral active Take 1 tablet by mouth Two times daily with meals Take together with 3.125 mg tab for total 28.125 mg [facility] carvedilol 3.125 MG Oral Tablet Carvedilol 3.125 MG Or al Tablet (COREG) Carvedilol 3.125 MG Oral Tablet (COREG) 10/18/2020 12:00:00 AM EST 3.125 mg Oral active Take 1 tablet by mouth Two times daily with meals Take with 25 mg tab for total of 28.125 mg [facility] Oxycodone Hydrochloride 5 MG Oral Tablet oxyCODONE (ROXICODONE) immediate release tablet 2.5 mg oxyCODONE (ROXICODONE) immediate release tablet 2.5 mg 10/17/2020 10:30:00 PM EST 2.5 mg Oral completed 2.5 mg, Oral, Once, 10/17/20 at 2230, For 1 dose
Oxycodone immediate release is limited to 10 mg per dose. Higher doses ( only) require Pain Service consultation and approval.
[facility] Medication administered onsite Vancomycin 125 MG Oral [...] premorbid level Hypotension or shock Ileus Megacolon
[facility] Medication administered onsite Insulin Glargine 100 UNT/ML [...] glucose more than 400 mg/dL: notify provider
[facility] Medication administered onsite Saccharomyces boulardii 250 MG Oral Caps ule saccharomyces boulardii (FLORASTOR) capsule 250 mg saccharomyces boulardii (FLORASTOR) capsule 250 mg 01/2021 09:00:00 PM EST 250 mg Oral active 250 mg, Oral, 2 Times Daily, First dose on 10/17/20 at 2100, For 30 days [facility] Medication administered onsite lactobacillus cultures (BACID) 1 tablet [id number] 10/18/19 11:00:00 AM EST 1 {tbl} Oral active 1 tablet, Oral, Daily Standard, First dose on 10/17/20 at 1100, For 30 days [facility] Medication administered onsite Levofloxacin 750 MG Oral Tablet levofloxacin (LEVAQUIN ) tablet 750 mg levofloxacin (LEVAQUIN) tablet 750 mg 10/17/2020 09:00:00 AM EST 75 0 mg Oral active 750 mg, Oral, E very other day, First dose on 10/17/20 at 0900, For 3 doses
Discouraged Uses: Treatment of UTI
[facility] Medication administered onsite Hydralazine Hydrochloride 25 MG Oral Tab let hydrALAZINE (APRESOLINE) tablet 25 mg hydrALAZINE (APRESOLINE) tablet 25 mg 10/17/2020 09:00:00 AM EST 25 mg Oral active 25 mg, Oral, E very 8 hours Standard (3 times per day), First dose on Mon10/17/20 at 0900, For 30 days
Check vital signs before administering
[facility] Medication administered onsite irbesartan 75 MG Oral Tablet irbesartan (AVAPRO) table t 300 mg irbesartan (AVAPRO) tablet 300 mg 10/17/2020 09:00:00 AM EST 300 mg Oral active 300 mg, Oral, Nightly, First dose on Mon10/17/20 at 0900, For 30 days [facility] Medication administered onsite Metoprolol Tartrate 1 MG/ML [...] medical provider and patient on a monitor and storage bin tender.
[facility] Medication administered onsite Insulin Glargine 100 UNT/ML Injectable S olution insulin glargine (LANTUS) injection 14 Units insulin glargine (LANTUS) injection 14 Units 09:00:00 PM EST 14 U Subcutaneous aborted 14 Units, Subcutaneous, Nightly, First dose (after last modification) on Mon10/16/20 at 2100, For 29 doses
For blood glucose less than 70 mg/dL: follow hypoglycemia protocol ( H) and notify provider. For blood glucose values between 70 mg/dL and 100 mg/dL at bedtime: provide snack (15 grams of carbohydrates) with some protein. Administer FULL DOSE of insulin glargine (LANTUS) after snack. Record snack in I&O's. For blood glucose more than 400 mg/dL: notify provider
[facility] Medication administered onsite carvedilol (COREG) tablet 28.125 mg 10/16/2020 06:00:00 PM EST 28.125 mg Oral active 28.125 mg, Ora l, 2 Times Daily With Meals, First dose (after last modification) on Mon10/16/20 at 1800, For 51 doses
Check vital signs before administering
[facility] Medication administered onsite magnesium sulfate in dextrose 5 % infusion (premix) 1 g 0409 -[id number] 10/16/2020 09:00:00 AM EST 1 g Intravenous completed 1 g, Intravenous, Administer over 60 Minutes, Once, Mon10/16/20 at 0900, For 1 dose [facility] Medication administered onsite carvedilol 3.125 MG Oral Tablet carvedilol (COREG) tab let 3.125 mg carvedilol (COREG) tablet 3.125 mg 10/16/2020 09:00:00 AM EST 3.125 mg Oral active 3.125 mg, Oral, Once, Mon10/16/20 at 0900 , For 1 dose
Check vital signs before administering
[facility] Medication administered onsite Furosemide 40 MG Oral Tablet furosemide (LASIX) tablet 80 mg furosemide (LASIX) tablet 80 mg 10/16/2020 09:00:00 AM EST 80 mg Oral compl eted 80 mg, Oral, Once, Mon10/16/20 at 0900, For 1 dose [facility] Medication administered onsite Hydralazine Hydrochloride 20 MG/ML Injec table Solution hydrALAZINE (APRESOLINE) injection 10 mg hydrALAZINE (APRESOLINE) injection 10 mg 10/16/2020 04 :15:00 AM EST 10 mg Intravenous completed 10 mg, Intravenous, Once, Mon10/16/20 at 0415, For 1 dose
Dilute in 25-50 ml normal saline. Administer over 30 minutes.
[facility] Medication administered onsite Insulin Glargine 100 UNT/ML [...] glucose more than 400 mg/dL: notify provider
[facility] Medication administered onsite furosemide (LASIX) injection 60 mg [id number] 10/15/2020 02:30:00 PM EST 60 mg Intravenous completed 60 mg, I ntravenous, Once, Scarlett 10/15/20 at 1430, For 1 dose
Notify provider if systolic blood pressure less than: 100 [facility] Medication administered onsite POLYETHYLENE GLYCOL [id number] [...] due to potential increased risk for aspiration.
[facility] Medication administered onsite Piperacillin 3000 MG / tazobactam 375 MG Injection piperacillin-tazobactam (ZOSYN) IVPB 3.375 g (premix) piperacillin-tazobactam (ZOSYN) IVPB 3.3 75 g (premix) 10/15/2020 09:00:00 AM EST 3.375 g Intravenous abo rted 3.375 g, Intravenous, Administer over 4 Hours, Every 8 hours, First dose on Scarlett 10/15/20 at 0900, For 5 days
This specific formulation of piperacillin- tazobactam is compatible with Lactated Ringers.
[facility] Medication administered onsite magnesium sulfate in dextrose 5 % infusion (premix) 1 g [id number] -[id number] 10/15/2020 09:00:00 AM EST 1 g Intravenous completed 1 g, Intravenous, Administer over 60 Minutes, Every 1 hour, First dose on Scarlett 10/15/20 at 0900, For 2 doses [facility] Medication administered onsite furosemide (LASIX) injection 40 mg [id number] 10/15/2020 08:00:00 AM EST 40 mg Intravenous completed 40 mg, I ntravenous, Once, Scarlett 10/15/20 at 0800, For 1 dose
Notify provider if systolic blood pressure less than: 100 [facility] Medication administered onsite Metoprolol Tartrate 1 MG/ML [...] medical provider and patient on a monitor and storage bin tender.
[facility] Medication administered onsite Metoprolol Tartrate 1 MG/ML [...] medical provider and patient on a monitor and storage bin tender.
[facility] Medication administered onsite insulin lispro (HumaLOG) injection LOW DOSE EATING INS ULIN patients 1-8 Units [id number] 10/14/2020 06:00:00 PM EST U Subcutaneous active 1-8 Units, Subcutaneous, Three Times Daily-With Meals, First dose on Mon10/14/20 at 1800, For 30 days
Nursing MUST open the 'SQ Insulin Dosing Charts' Sidebar Report, or, the Patient Summary or Summary Report within the ED.
[facility] Medication administered onsite Acetaminophen 325 MG Oral Tablet acetaminophen (TYLENO L) tablet 650 mg acetaminophen (TYLENOL) tablet 650 mg 10/14/2020 04:15:00 PM EST 65 0 mg Oral active 650 mg, Oral, T hree Times Daily, First dose (after last modification) on Mon10/14/20 at 1615, For 5 days
Maximum daily dose of acetaminophen is 3,000 mg from all sources in 24 hours.
[facility] Medication administered onsite Oxycodone Hydrochloride 5 MG [...] only) require Pain Service consultation and approval.
[facility] Medication administered onsite Furosemide 20 MG Oral Tablet furosemide (LASIX) tablet 20 mg furosemide (LASIX) tablet 20 mg 10/14/2020 03:00:00 PM EST 20 mg Oral abort ed 20 mg, Oral, Daily Standard, First dose on Mon10/14/20 at 1500, For 30 days [facility] Medication administered onsite Losartan Potassium 50 MG Oral Tablet losartan (COZAAR) tablet 100 mg losartan (COZAAR) tablet 100 mg 10/14/2020 02:15:00 PM EST 100 mg Oral aborted 100 mg, Oral, Daily Standard, First dose (after last modification) on Mon10/14/20 at 1415, For 30 days
Check vital signs before administering
[facility] Medication administered onsite Docusate Sodium 100 MG Oral Capsule docusate sodium (C OLACE) capsule 100 mg docusate sodium (COLACE) capsule 100 mg 10/13/2020 09:00:00 PM EST 100 mg Oral aborted 100 mg, Oral, 2 Times Daily, First dose on Mon10/13/20 at 2100, For 30 days [facility] Medication administered onsite Calcium Chloride 0.0014 MEQ/ML / Potassi um Chloride 0.004 MEQ/ML / Sodium Chloride 0.103 MEQ/ML / Sodium Lactate 0.028 MEQ/ML Injectable Solution lactated ringers infusion lactated ringers infusion 10/12/2020 08:00:00 PM EST 50 mL/h Intravenous aborted at 50 mL /hr, Intravenous, Continuous, Starting Mon10/12/20 at 2000, For 30 days [facility] Medication administered onsite TC-99M mebrofenin (CHOLETEC) [id number] 10/12/2020 12:45:00 PM EST Intravenous completed Intravenous, Once, Mon10/12/20 at 1245, For 1 dose, Imaging Protocol [facility] Medication administered onsite sincalide (KINEVAC) 1 mcg in sodium chloride 0.9 % 25 mL IVP B 10/12/2020 10:15:00 AM EST 1 ug Intravenous completed 1 mcg, Intravenous, Administer over 10 Minutes, Once, Mon10/12/20 at 1015, For 1 dose [facility] Medication administered onsite Piperacillin 3000 MG / [...] of piperacillin-tazobactam is compatible with Lactated Ringers.
[facility] Medication administered onsite pantoprazole 40 MG Delayed Release Oral Tablet pantoprazole (PROTONIX) EC tablet 40 mg pantoprazole (PROTONIX) EC tablet 40 mg 10/12/2020 09:00:[address] 40 mg Oral active 40 mg, Ora l, Daily Standard, First dose on Mon10/12/20 at 0900, For 30 days
Do not crush or chew
[facility] Medication administered onsite heparin (porcine) 5000 UNIT/ML injection 5,000 Units [id number] 10/12/2020 09:00:00 AM EST 5000 U Subcutaneous active 5,000 Units, Subcutaneous, Three Times Daily Standard, First dose on Mon10/12/20 at 0900, For 30 days [facility] Medication administered onsite ezetimibe 10 MG Oral Tablet ezetimibe (ZETIA) tablet 1 0 mg ezetimibe (ZETIA) tablet 10 mg 10/12/2020 09:00:00 AM EST 10 mg Oral activ e 10 mg, Oral, Daily Standard, First dose on Mon10/12/20 at 0900, For 30 days [facility] Medication administered onsite carvedilol 12.5 MG Oral Tablet carvedilol (COREG) tabl et 25 mg carvedilol (COREG) tablet 25 mg 10/12/2020 09:00:00 AM EST 25 mg Oral aborted 25 mg, Oral, 2 Times Daily With Meals, First dose on Mon10/12/20 at 0900, For 30 days
Check vital signs before administering
[facility] Medication administered onsite Aspirin 81 MG Chewable Tablet aspirin chewable tablet 81 mg aspirin chewable tablet 81 mg 10/12/2020 09:00:00 AM EST 81 mg Oral activ e 81 mg, Oral, Daily Standard, First dose on Mon10/12/20 at 0900, For 30 days [facility] Medication administered onsite ferrous sulfate 325 MG Delayed Release O ral Tablet ferrous sulfate EC tablet 325 mg ferrous sulfate EC tablet 325 mg 10/12/2020 08:00:00 AM EST 325 mg Oral active 325 mg, Oral, Da carrie with Breakfast, First dose on Mon10/12/20 at 0800, For 30 days [facility] Medication administered onsite Calcium Chloride 0.0014 MEQ/ML / Potassi um Chloride 0.004 MEQ/ML / Sodium Chloride 0.103 MEQ/ML / Sodium Lactate 0.028 MEQ/ML Injectable Solution lactated ringers infusion lactated ringers infusion 10/12/2020 07:45:00 AM EST 200 mL/h Intravenous completed at 200 m L/hr, Intravenous, Continuous, Starting Mon10/12/20 at 0745, For 12 hours [facility] Medication administered onsite Calcium Chloride 0.0014 MEQ/ML / Potassi um Chloride 0.004 MEQ/ML / Sodium Chloride 0.103 MEQ/ML / Sodium Lactate 0.028 MEQ/ML Injectable Solution lactated ringers infusion lactated ringers infusion 10/11/2020 10:15:00 PM EST 200 mL/h Intravenous completed at 200 m L/hr, Intravenous, Continuous, Starting 10/11/20 at 2215, For 12 hours [facility] Medication administered onsite Nitroglycerin 0.4 MG Sublingual Tablet n itroglycerin (NITROSTAT) SL tablet 0.4 mg nitroglycerin (NITROSTAT) SL tablet 0.4 mg 10/11/2020 10:12:14 P M EST 0.4 mg Sublingual active 0.4 mg, S ublingual, Every 5 min PRN, Chest pain, Starting [place] 10/11/20 at 2212, For 30 days [facility] Medication administered onsite insulin lispro (HUMALOG) injection LOW DOSE NPO INSULI N patients 1-5 Units [id number] 10/11/2020 09:00:00 PM EST U Subcutaneous aborted 1-5 Units, Subcutaneous, Every 4 hours, First dose on [place] 10/11/20 at 2100, For 30 days
Nursing MUST open the 'SQ Insulin Dosing Charts' Sidebar Report, or, the Patient Summary or Summary Report within the ED.
[facility] Medication administered onsite lactated ringers bolus 1,000 mL [id number] 10/11/2020 09:00:00 PM EST 1000 mL Intravenous completed 1,000 mL , Intravenous, Once, [place] 10/11/20 at 2100, For 1 dose [facility] Medication administered onsite Metronidazole 5 MG/ML Injectable Solution metroNIDAZOL E (FLAGYL) IVPB 500 mg metroNIDAZOLE (FLAGYL) IVPB 500 mg 10/11/2020 09:00:00 PM EST 50 0 mg Intravenous aborted 500 mg, Intra venous, Administer over 60 Minutes, Every 8 hours, First dose on [place] 10/11/20 at 2100, For 7 days [facility] Medication administered onsite Ceftriaxone 1000 MG Injection cefTRIAXone (ROCEPHIN) I VPB (premix) 1 g cefTRIAXone (ROCEPHIN) IVPB (premix) 1 g 10/11/2020 09:00:00 PM EST 1 g Intravenous aborted 1 g, Intraven ous, at 100 mL/hr, Every 24 hours, First dose on [place] 10/11/20 at 2100, For 7 days
Discouraged Uses: Empiric treatment of post-surgical meningitis (ceftazidime preferred)
[facility] Medication administered onsite Glucose 0.417 MG/MG Oral Gel glucose (GLUTOSE) 40 % or al gel 15 g glucose (GLUTOSE) 40 % oral gel 15 g 10/11/2020 08:55:55 PM EST 15 g Oral active 15 g, Oral, PRN, Low blood s ugar, for gluose 55-69 mg/dl and able to take PO, Starting [place] 10/11/20 at 2054, For 30 days [facility] Medication administered onsite Glucagon 1 MG Injection glucagon (human recombinant) ( GLUCAGEN) injection 1 mg glucagon (human recombinant) (GLUCAGEN) injection 1 mg 10/11/2020 08:55:55 PM EST 1 mg Intramuscular active 1 mg, Intramuscular, PRN, for glucose <55 without IV access, Starting [place] 10/11/20 at 2054, For 30 days [facility] Medication administered onsite dextrose 50 % IV solution 25 mL [id number] 10/11/2020 08:55:[address] 25 mL Intravenous active 25 mL, Intrav enous, PRN, Other, blood glucose <55, Starting [place] 10/11/20 at 2054, For 30 days
Not for midline administration.
[facility] Medication administered onsite pantoprazole 40 MG Delayed [...] 1 active carvedilol 25 MG Oral Tablet [place] ([facility]) OneTouch Ultra In Vitro Strip OneTouch Ultra In Vitro Strip 08/28/2020 12:00:00 AM EST aborted [facility] OneTouch Ultra In Vitro Strip OneTouch Ultra In Vitro Strip 08/28/2020 12:00:00 AM EST active [facility]Touch Ultra [facility] ezetimibe 10 MG Oral Tablet Ezetimibe 10 MG Oral Table t Ezetimibe 10 MG Oral Tablet 08/04/2020 12:00:00 AM EST 1 active ezetimibe 10 MG Oral Tablet [place] ([facility]) Minoxidil 2.5 MG Oral Tablet Minoxidil 2.5 MG Oral Tablet 12:00:00 AM EST active minoxidil 2.5 MG Oral Tablet [place] ([facility]) Epoetin [place] 4000 UNT/ML Injectable Solu tion [Epogen] Epogen 4000 UNIT/ML Injection Solution Epogen 4000 UNIT/ML Injection Solution 07/22/2020 12:0 0:00 AM EST aborted 1 ML epoetin [facility] a 4000 UNT/ML Injection [Epogen] [place] ([facility]) decitabine 5 MG/ML Injectable Solution [ Dacogen] Dacogen 50 MG Intravenous Solution Reconstituted Dacogen 50 MG Intravenous Solution Reconstituted 07/22/2020 12:00:00 AM EST aborted decitabine 50 MG Injection [Dacogen] [place] ([facility]) Basaglar KwikPen 100 UNIT/ML Subcutaneous Solution Pen -injector Basaglar KwikPen 100 UNIT/ML Subcutaneous Solution Pen-injector 05/12/2020 12:00:00 AM EDT active Sensor 3 ML insulin glargine 100 UNT/ML Pen Injector [Basaglar] [place] ([facility]) pantoprazole 40 MG Delayed Release Oral Tablet Pantoprazole Sodium 40 MG Oral Tablet Delayed Release Pantoprazole Sodium 40 MG Oral Tablet Delayed Release 04/27/2020 12:00:00 AM EDT 1 aborted pantoprazole 40 MG Delayed Release Oral Tablet [place] ([facility]) Hydrochlorothiazide 12.5 MG / Losartan P otassium 50 MG Oral Tablet Losartan Potassium-HCTZ 50-12.5 MG Oral Tablet Losartan Potassium-HCTZ 50-12.5 MG Oral Tablet 04/27/2020 12:00:00 AM EDT 1 aborted hydrochlorothiazide 12.5 MG / losartan potassium 50 MG Oral Tablet [place] ([facility]) carvedilol 25 MG Oral Tablet Carvedilol 25 MG Oral Tab let Carvedilol 25 MG Oral Tablet 04/27/2020 12:00:00 AM EDT 1 aborted carvedilol 25 MG Oral Tablet [place] ([facility]) Basaglar KwikPen 100 UNIT/ML Subcutaneous Solution Pen -injector Basaglar KwikPen 100 UNIT/ML Subcutaneous Solution Pen-injector 04/03/2020 12:00:00 AM EDT aborted Sensor 3 ML in sulin glargine 100 UNT/ML Pen Injector [Basaglar] [place] ([facility]) Flintstones Gummies Oral Tablet Chewable Flintstones G ummies Oral Tablet Chewable 03/24/2020 12:00:00 AM EDT aborted Flintstones Gummies [place] ([facility]) Epoetin [place] 4000 UNT/ML Injectable Solu tion [Epogen] Epogen 4000 UNIT/ML Injection Solution Epogen 4000 UNIT/ML Injection Solution 03/24/2020 12:0 0:00 AM EDT aborted 1 ML epoetin [facility] a 4000 UNT/ML Injection [Epogen] [place] ([facility]) Epoetin [place] 11332 UNT/ML Injectable Marycarmen ution [Epogen] Epogen 80685 UNIT/ML Injection Solution Epogen 04975 UNIT/ML Injection Solution 03/24/2020 12: 00:00 AM EDT aborted epoetin cameron 03989 UNT/ML Injectable Solution [Epogen] [place] ([facility]) ezetimibe 10 MG Oral Tablet Ezetimibe 10 MG Oral Table t Ezetimibe 10 MG Oral Tablet 03/24/2020 12:00:00 AM EDT aborted ezetimibe 10 MG Oral Tablet [place] ([facility]) Furosemide 20 MG Oral Tablet [Lasix] Lasix 20 MG Oral Tablet Lasix 20 MG Oral Tablet 03/24/2020 12:00:00 AM EDT 1 aborted furosemide 20 MG Oral Tablet [Lasix] [place] ([facility]) OneTouch Ultra In Vitro Strip OneTouch Ultra In Vitro Strip 03/18/2020 12:00:00 AM EDT aborted [facility] Nitroglycerin 0.4 MG Sublingual Tablet [ Nitrostat] Nitrostat 0.4 MG Sublingual Tablet Sublingual Nitrostat 0.4 MG Sublingual Tablet Sublingual 02/08/20 12:00:00 AM EDT completed nitroglycerin 0.4 MG Sublingual Tablet [Nitrostat] [place] ([facility]) Hydrochlorothiazide 12.5 MG / Losartan P otassium 100 MG Oral Tablet Losartan-Hydrochlorothiazide Losartan-Hydrochlorothiazide 12/16/2019 05:37:37 AM EDT TABLET 1 [facility] Hydrochlorothiazide 12.5 MG / Losartan P otassium 100 MG Oral Tablet Losartan-Hydrochlorothiazide Losartan-Hydrochlorothiazide 12/16/2019 05:37:37 AM EDT TABLET 1 TAB ORAL completed [facility] pantoprazole 40 MG Delayed Release Oral Tablet Pantoprazole Sodium 40 MG Oral Tablet Delayed Release Pantoprazole Sodium 40 MG Oral Tablet Delayed Release 11/08/2019 12:00:00 AM EDT 1 aborted pantoprazole 40 MG Delayed Release Oral Tablet [place] ([facility]) carvedilol 25 MG Oral Tablet Carvedilol 25 MG Oral Tab let Carvedilol 25 MG Oral Tablet 11/08/2019 12:00:00 AM EDT 1 aborted carvedilol 25 MG Oral Tablet [place] ([facility]) Minoxidil 2.5 MG Oral Tablet Minoxidil 2.5 MG Oral Tablet 12:00:00 AM EST 1 aborted minoxidil 2.5 MG Oral Tablet [place] ([facility]) Hydrochlorothiazide 25 MG / Losartan Pot assium 100 MG Oral Tablet Losartan Potassium-HCTZ 100-25 MG Oral Tablet Losartan Potassium-HCTZ 100-25 MG Oral Tablet 05/17/2019 12:00:00 AM EDT 1 aborted hydrochlorothiazide 25 MG / losartan potassium 100 MG Oral Tablet [place] ([facility]) Nystatin 100 UNT/MG Topical Powder Nystatin [id number] /GM External Powder Nystatin 128032QYZO/GM External Powder 01/10/2019 12:00:00 AM EDT 1 aborted nystatin 100 UNT/MG Topical Powd er [place] ([facility]) Insulin Glargine Insulin Glargine (Basag lar Kwikpen U-100) 100 UNIT/ML (3 ML) insulin pen Insulin Glargine (Basaglar Kwikpen U-100 ) 100 UNIT/ML (3 ML) insulin pen 12/13/2017 06:43:00 AM EDT UNASSIGNED 100 UNIT SUB-Q [facility] Insulin Glargine Insulin Glargine (Basag lar Kwikpen U-100) 100 UNIT/ML (3 ML) insulin pen Insulin Glargine (Basaglar Kwikpen U-100 ) 100 UNIT/ML (3 ML) insulin pen 12/13/2017 06:43:00 AM EDT UNASSIGNED 100 UNIT SUB-Q [facility] Sure Comfort Pen [place] 31G X 8 MM Miscellaneous Sure Comfort Pen [place] 31G X 8 MM Miscellaneous 03/10/2017 12:00:00 AM EDT aborted Sure Comfort Pen [place] ([facility]) Ascorbic Acid 60 MG / Beta Carotene 5000 UNT / Copper Sulfate 40 MG / dl-alpha tocopheryl acetate 30 UNT / Sodium Selenite 0.04 MG / Zinc Oxide 40 MG Oral Tablet Multiple Vitamins-Iron (MULTIVITAMIN WITH IRON) TABS Multiple Vitamins- Iron (MULTIVITAMIN WITH IRON) TABS 06/10/2016 12:00:00 AM EDT 2 {tbl} Oral aborted Take 2 tablets by mouth catia y [facility] Aspirin 81 MG Delayed Release Oral Tablet aspirin EC 8 1 MG EC tablet aspirin EC 81 MG EC tablet 06/09/2016 12:00:00 AM EDT 81 mg Oral ab orted Take 1 tablet (81 mg total) by mouth daily MAY RESTART IN TEN DAYS AFTER DISCHARGE [facility] 200 ACTUAT Albuterol 0.09 MG/ACTUAT Met[place] red Dose Inhaler [ProAir] ProAir HFA 108 (90 Base) MCG/ACT Aerosol Solution ProAir HFA 108 (90 Base) MCG/ACT Aerosol Solution 05/29/2015 12:00:00 AM EDT aborted [id number] ACTUAT albuterol 0.09 MG/ACTUAT Metered Dose Inhaler [ProAir] [place] ([facility]) albuterol (PROVENTIL HFA;VENTOLIN HFA) 108 (90 Base) M CG/ACT inhaler [id number] 2 {puff} Inhalation aborted Inhale 2 puffs every 4 (four) hours as needed for wheezing [facility] Losartan Potassium 25 MG Oral Tablet losartan (COZAAR) 25 MG tablet losartan (COZAAR) 25 MG tablet 25 mg Oral aborted Ta ke 25 mg by mouth daily [facility] carvedilol 25 MG Oral Tablet carvedilol (COREG) 25 MG tablet carvedilol (COREG) 25 MG tablet 25 mg Oral aborted Ran e 25 mg by mouth Two times daily with meals [facility] Insulin Glargine 100 UNT/ML Injectable S olution insulin glargine (INSULIN GLARGINE) 100 UNIT/ML injection insulin glargine (INSULIN GLARGINE) 100 UNIT/ML injection U Subcutaneous aborted Inject 20-30 Units under the skin nightly [facility] Hydrochlorothiazide 12.5 MG / Losartan P otassium 100 MG Oral Tablet Losartan Potassium-HCTZ 100-12.5 MG Oral Tablet (HYZAAR) Losartan Potassium-HCTZ 100-12.5 MG Oral Tablet (HYZAAR) 1 {tbl} Oral aborted Take 1 tablet by mouth daily [facility] Insurance Providers Payer name Policy type / Coverage type Policy ID Covered alliance party ID Covered alliance party's relationship to villa Policy Villa Plan Information [facility] 2 [id number] 1 [id number] [facility] 1 [id number] [facility] [id number] 0 [id number] [facility] [id number] SP [id number] [employer] OPTIONS [id number] SP [id number] MEDICARE [id number] SP [id number] A MEDICARE A [id number] Self [id number] MEDICARE [id number] SP [id number] A MEDICARE [id number] SP [id number] [id number] [place] Other 0 [id number] Self 0 [place] Other 0 [id number] Self 0 [place] Other 0 [id number] Self 0 [place] Other 0 [id number] Self 0 [place] Other 0 [id number] Self 0 [place] Other 0 [id number] Self 0 [place] Other 0 [id number] Self 0 [place] Other 0 [id number] Self 0 [place] Other 0 [id number] Self 0 [place] Other 0 [id number] Self 0 [place] Other 0 [id number] Self 0 [place] Other 0 [id number] Self 0 [place] Other 0 [id number] Self 0 Medicare Part B [facility] [id number] 0 [id number] [place] Other 0 [id number] Self 0 [place] Other 0 [id number] Self 0 [place] Other 0 [id number] Self 0 [place] Other 0 [id number] Self 0 [place] Other 0 [id number] Self 0 [place] Other 0 [id number] Self 0 [place] Other 0 [id number] Self 0 [place] Other 0 [id number] Self 0 [place] Other 0 [id number] Self 0 [place] Other 0 [id number] Self 0 [place] Other 0 [id number] Self 0 [place] Other 0 [id number] Self 0 [place] Other 0 [id number] Self 0 [place] Other 0 [id number] Self 0 [place] Other 0 [id number] Self 0 [place] Other 0 [id number] Self 0 [place] Other 0 [id number] Self 0 [place] 0 [id number] Self 0 Medicare [place] Other 0 [id number] Self 0 MEDICARE [id number] SP [id number] A [place] Other 0 [id number] Self 0 [place] Other 0 [id number] Self 0 Medicare Part B Medicare Primary [id number] Self [id number] Medicare Part B Medicare Primary [id number] Self [id number] [place] Other 0 [id number] Self 0 [place] Other 0 [id number] Self 0 Medicare Medigap Part B [id number] Self [place] Other 0 [id number] Self 0 [place] Other 0 [id number] Self 0 [place] Other 0 [id number] Self 0 [place] Other 0 [id number] Self 0 Medicare [place] Other [id number] Self [facility] MEDICARE [id number] SP [id number] [facility] MEDICARE SOLUTIO 11 [id number] 1 [id number] BLUE CROSS [id number] SP [id number] [facility] MEDICARE SOLUTIO 11 XXX 1 XXX BLUE CROSS [id number] SP [id number] BC EXC PLANS 1 [id number] BC EXC PLANS 1 [id number] [place] Commercial [id number] Family Dependent [employer] OPTIONS [id number] SP [id number] [facility] Options Medigap Part B [id number] Self [id number] [employer] OPTIONS [id number] SP [id number] AARP U [id number] Self [id number] [facility] [id number] [place] [id number] [facility] Option [id number] [employer] OPTIONS [id number] SP [id number] [facility] [id number] [employer] OPTIONS [id number] SP [id number] [employer] OPTIONS [id number] SP [id number] MEDICARE [id number] SP [id number] [id number] [employer] OPTIONS [id number] SP [id number] [employer] OPTIONS [id number] SP [id number] MEDICARE [id number] SP [id number] N25 SELF PAY [employer] OPTIONS [id number] SP [id number] MEDICARE [id number] SP [id number] SELF PAY [employer] OPTIONS [id number] SP [id number] SELF PAY [employer] OPTIONS [id number] SP [id number] MEDICARE [id number] SP [id number] N25 SELF PAY MEDICARE [id number] SP [id number] N25 [employer] OPTIONS [id number] SP [id number] SELF PAY [employer] OPTIONS [id number] SP [id number] MEDICARE [id number] SP [id number] N25 [employer] OPTIONS [id number] SP [id number] MEDICARE [id number] SP [id number] N25 SELF PAY MEDICARE [id number] SP [id number] N25 [employer] OPTIONS [id number] SP [id number] [employer] OPTIONS [id number] SP [id number] MEDICARE [id number] SP [id number] N25 SELF PAY MEDICARE [id number] SP [id number] N25 [employer] OPTIONS [id number] SP [id number] SELF PAY SELF PAY [employer] OPTIONS [id number] SP [id number] MEDICARE [id number] SP [id number] N25 MEDICARE [id number] SP [id number] N25 [employer] OPTIONS [id number] SP [id number] SELF PAY INSURANCE COVID-19 COVID [place] OV[place] INSURANCE COVID-19 [id number] INSURANCE COVID-19 COVID [place] OVID [employer] [id number] Self [id number] [facility] Medicare Medicare Part B [id number] Self [id number] SELF PAY MEDICARE [id number] SP [id number] A AARP O [id number] S [id number] MEDICARE C [id number] S [id number] A [facility] Options Medigap Part B [id number] Self Medicare Natl Gov't Servi Medicare Primary [id number] Self [employer] CARE OPTIONS [id number] SP [id number] [facility] [employer] [id number] Self [facility] Medigap Part B [id number] Self MEDICARE [id number] SELF PAY 2 UNAVAILABLE 1 UNAVAILA BLE MEDICARE [id number] [place] [id number] N25 [employer] OPTIONS [id number] SP [id number] Medicare Natl Gov't Servi Medicare Primary [id number] Self [id number] [place] 306/806 [id number] SELF PAY UNAVAILABLE SP UNAVAILA BLE MEDICARE [id number] SP [id number] N25 BC EXC PLANS 1 [id number] [facility] [facility] Medigap Part B [id number] Self [id number] [place] Primary [id number] Self [id number] [facility] Medigap Part B [id number] Self [id number] Medicare Natl Gov't Servi Medicare Primary [id number] Self [id number] [facility] Medigap Part B [id number] Self [id number] [facility] Medigap Part B [id number] Self [id number] Medicare [place] Medicare Primary [id number] Self [id number] Medicare Natl Gov't Servi Medicare Primary [id number] Self [id number] [facility] Medigap Part B [id number] Self [id number] Medicare [place] Medicare Primary [id number] Self [id number] [facility] Medigap Part B [id number] Self [id number] MEDICARE PART A -O/P [id number] 18 [id number] [facility] Medigap Part B [id number] Self [id number] Medicare [place] Medicare Primary [id number] Self [id number] [facility] Medigap Part B [id number] Self [id number] Medicare Natl Gov't Servi Medicare Primary [id number] Self [id number] MEDICARE [id number] [facility] [id number] A MEDICARE PI PI [facility] PI PI Problems, Conditions, and Diagnoses Code Display Name Description Problem Type Effective Dates Data Source(s) Z99.2 Dependence on renal dialysis Dependence on renal dialy sis Diagnosis 04/09/2021 11:26:00 AM EDT [facility] N18.6 End stage renal disease End stage renal disease Diagno sis 04/09/2021 11:26:00 AM EDT [facility] U07.1 COVID-19 COVID-19 Diagnosis 04/05/2021 08:45:37 AM ED T [facility] E11.9 Type 2 diabetes mellitus without complic ations E11.9 - Type 2 diabetes mellitus without complications Diagnosis 12/24/2020 10:07:00 PM EDT [facility] E08.8 Diabetes mellitus due to und erlying condition with unspecified complications E08.8 - Diabetes mellitus due to underly ing condition with unspecified complications Diagnosis 12/24/2020 10:07:00 PM EDT [facility] K81.9 Cholecystitis, unspecified Cholecystitis, unspecified Diagnosis 12/15/2020 10:35:12 AM EDT [facility] I73.9 Peripheral vascular disease, unspecified I73.9 - [...] [place] I25.10 Atherosclerotic heart diseas e of [facility] coronary artery without angina pectoris I25.10 - Atherosclerotic heart disease o f [facility] coronary artery without angina pectoris Diagnosis 11/25/2020 [...] dise ase) COPD (chronic obstructive pulmonary disease) [id number] 04/07/2021 12:00:00 AM EDT [facility] I25.10 Coronary artery disease Coronary artery disease 880197 01 04/07/2021 12:00:00 AM EDT [facility] K21.9 GERD (gastroesophageal reflux disease) G ERD (gastroesophageal reflux disease) [id number] 04/07/2021 12:00:00 AM EDT [facility] E78.5 Hyperlipidemia Hyperlipidemia 47075204 04/07/2021 12:00: 00 AM EDT [facility] M19.90 Osteoarthritis Osteoarthritis 77362491 04/07/2021 12:00: 00 AM EDT [facility] E11.9 Diabetes mellitus type 2, insulin depend ent Diabetes mellitus type 2, insulin dependent [id number] 04/07/2021 12:00:00 AM EDT [facility] N18.6 End stage renal disease on dialysis End stage re nal disease on dialysis [id number] 04/07/2021 12:00:00 AM EDT [facility] 586 Renal Failure Renal Failure Problem 01/16/2021 [...] Problem 10/19/2020 04:58:00 PM EST [place] ([facility]) K85.12 Acute Pancreatitis Due To Gallstones Acu te Pancreatitis Due To Gallstones Problem 10/19/2020 04:58:00 PM EST [place] ([facility]) 427.31 Atrial Fibrillation with Rapid Ventricul ar Response Atrial Fibrillation with Rapid Ventricular Response Problem 10/19/2020 04:58:00 PM EST [facility] [place] ([facility]) K85.12 Acute Pancreatitis Due To Gallstones Acu te Pancreatitis Due To Gallstones Problem 10/19/2020 04:58:00 PM EST [place] ([facility]) 427.31 Atrial Fibrillation with Rapid Ventricul ar Response Atrial Fibrillation with Rapid Ventricular Response Problem 10/19/2020 04:58:00 PM EST [facility] [place] ([facility]) K85.12 Acute Pancreatitis Due To Gallstones Acu te Pancreatitis Due To Gallstones Problem 10/19/2020 04:58:00 PM EST [place] ([facility]) 427.31 Atrial Fibrillation with Rapid Ventricul ar Response Atrial Fibrillation with Rapid Ventricular Response Problem 10/19/2020 04:58:00 PM EST [facility] [place] ([facility]) K85.12 Acute Pancreatitis Due To Gallstones Acu te Pancreatitis Due To Gallstones Problem 10/19/2020 04:58:00 PM EST [place] ([facility]) 427.31 Atrial Fibrillation with Rapid Ventricul ar Response Atrial Fibrillation with Rapid Ventricular Response Problem 10/19/2020 04:58:00 PM EST [facility] [place] ([facility]) K85.12 Acute Pancreatitis Due To Gallstones Acu te Pancreatitis Due To Gallstones Problem 10/19/2020 04:58:00 PM EST [place] ([facility]) 427.31 Atrial Fibrillation with Rapid Ventricul ar Response Atrial Fibrillation with Rapid Ventricular Response Problem 10/19/2020 04:58:00 PM EST [facility] [place] ([facility]) K85.12 Acute Pancreatitis Due To Gallstones Acu te Pancreatitis Due To Gallstones Problem 10/19/2020 04:58:00 PM EST [place] ([facility]) 427.31 Atrial Fibrillation with Rapid Ventricul ar Response Atrial Fibrillation with Rapid Ventricular Response Problem 10/19/2020 04:58:00 PM EST [facility] [place] [facility] K85.12 Acute Pancreatitis Due To Gallstones Acu te Pancreatitis Due To Gallstones Problem 10/19/2020 04:58:00 PM EST [place] ([facility]) 427.31 Atrial Fibrillation with Rapid Ventricul ar Response Atrial Fibrillation with Rapid Ventricular Response Problem 10/19/2020 04:58:00 PM EST [facility] [place] [facility] K85.12 Acute Pancreatitis Due To Gallstones Acu te Pancreatitis Due To Gallstones Problem 10/19/2020 04:58:00 PM EST [place] ([facility]) 427.31 Atrial Fibrillation with Rapid Ventricul ar Response Atrial Fibrillation with Rapid Ventricular Response Problem 10/19/2020 04:58:00 PM EST [facility]AY [facility] K85.12 Acute Pancreatitis Due To Gallstones Acu te Pancreatitis Due To Gallstones Problem 10/19/2020 04:58:00 PM EST MADDISON ([facility]) 427.31 Atrial Fibrillation with Rapid Ventricul ar Response Atrial Fibrillation with Rapid Ventricular Response Problem 10/19/2020 04:58:00 PM EST G REENWAY [facility] 67904 Acute Pancreatitis Due To Gallstones Acute Pancr eatitis Due To Gallstones Problem 10/19/2020 04:58:00 PM EST MADDISON ([facility]) 575.0 Acute Cholecystitis Acute Cholecystitis Problem 0 10/19/2020 04:57:00 PM EST M[facility]DISON [facility] 575.0 Acute Cholecystitis Acute Cholecystitis Problem 0 10/19/2020 04:57:00 PM EST M[facility]DISON ([facility] 575.0 Acute Cholecystitis Acute Cholecystitis Problem 0 10/19/2020 04:57:00 PM EST MADDISON ([facility] 575.0 Acute Cholecystitis Acute Cholecystitis Problem 0 10/19/2020 04:57:00 PM EST M[facility]DISON ([facility] 575.0 Acute Cholecystitis Acute Cholecystitis Problem 0 10/19/2020 04:57:00 PM EST M[facility]DISON ([facility] 575.0 Acute Cholecystitis Acute Cholecystitis Problem 0 10/19/2020 04:57:00 PM EST MADDISON ([facility]) 575.0 Acute Cholecystitis Acute Cholecystitis Problem 0 10/19/2020 04:57:00 PM EST MADDISON ([facility]) 575.0 Acute Cholecystitis Acute Cholecystitis Problem 0 10/19/2020 04:57:00 PM EST MADDISON ([facility]) 575.0 Acute Cholecystitis Acute Cholecystitis Problem 0 10/19/2020 04:57:00 PM EST MADDISON ([facility]) 575.0 Acute Cholecystitis Acute Cholecystitis Problem 0 10/19/2020 04:57:00 PM EST MADDISON ([facility]) [id number] Tkogl-Jsyncuohn-Pyxcn pattern Dkctv-Nbklmxdga-Cdkpd pa ttern Problem 10/11/2020 12:00:00 AM EST MEDENT ([facility]) [id number] Insulin treated type 2 diabetes mellitus Insulin treated type 2 diabetes mellitus Problem 10/11/2020 12:00:00 AM EST MEDENT ([facility]) [id number] Hyperlipidemia Hyperlipidemia Problem 10/11/2020 12:00: 00 AM EST MEDENT ([facility]) [id number] Gastroesophageal reflux disease Gastroesophageal reflux disease Problem 10/11/2020 12:00:00 AM EST MEDENT ([facility] [id number] Gallstone acute pancreatitis Gallstone acute pancreati tis Problem 10/11/2020 12:00:00 AM EST MEDENT ([facility]) [id number] Chronic diastolic heart failure Chronic diastoli c heart failure Problem 10/11/2020 12:00:00 AM EST MEDENT ([facility]) [id number] Arteriosclerosis of coronary artery bypa ss graft Arteriosclerosis of coronary artery bypass graft Problem 10/11/2020 12:00:00 AM EST MEDE NT ([facility]) [id number] Juede-gm-agajmeh renal failure Lldqv-qp-aiwaswn renal failure Problem 10/11/2020 12:00:00 AM EST MEDENT ([facility]) B97.29 Coronavirus Covid-19 Infection Coronavirus Covid-19 In fection Problem 09/17/2020 11:07:00 AM EST MADDISON ([facility]) B97.29 Coronavirus Covid-19 Infection Coronavirus Covid-19 In fection Problem 09/17/2020 11:07:00 AM EST M[facility]DISON ([facility] B97.29 Coronavirus Covid-19 Infection Coronavirus Covid-19 In fection Problem 09/17/2020 11:07:00 AM EST MADDISON ([facility] B97.29 Coronavirus Covid-19 Infection Coronavirus Covid-19 In fection Problem 09/17/2020 11:07:00 AM EST MADDISON ([facility] B97.29 Coronavirus Covid-19 Infection Coronavirus Covid-19 In fection Problem 09/17/2020 11:07:00 AM EST MADDISON ([facility] B97.29 Coronavirus Covid-19 Infection Coronavirus Covid-19 In fection Problem 09/17/2020 11:07:00 AM EST MADDISON ([facility]) B97.29 Coronavirus Covid-19 Infection Coronavirus Covid-19 In fection Problem 09/17/2020 11:07:00 AM EST MADDISON ([facility] B97.29 Coronavirus Covid-19 Infection Coronavirus Covid-19 In fection Problem 09/17/2020 11:07:00 AM EST MADDISON ([facility] B97.29 Coronavirus Covid-19 Infection Coronavirus Covid-19 In fection Problem 09/17/2020 11:07:00 AM EST MADDISON ([facility]) B97.29 Coronavirus Covid-19 Infection Coronavirus Covid-19 In fection Problem 09/17/2020 11:07:00 AM EST MADDISON ([facility]) Surgeries/Procedures Procedure Description Date Indications Data Source(s) Summary provided electronically in CCDA format & reasonable certainty of receipt 04/26/2021 12:00:00 AM EDT - 04/26/2021 12:00:00 AM EDT MADDISON ([facility]) Clinical summary provided to patient 12:00:00 AM EDT - 04/26/2021 12:00:00 AM EDT MADDISON ([facility]) medical regimen review 04/26/2021 12:00: 00 AM EDT - 04/26/2021 12:00:00 AM EDT MADDISON ([facility]) continue current medication except where otherwise noted 04/26/2021 12:00:00 AM EDT - 04/26/2021 12:00:00 AM EDT MADDISON ([facility]) Hemoglobin; Glycated A1c Hemoglobin; Glycated A1c 04/26/2021 12:00: 00 AM EDT MADDISON ([facility]) Tdap, Tetanus, Diphtheria Toxoids and Acellular Pertus sis Va Tdap, Tetanus, Diphtheria Toxoids and Acellular Pertussis Va 04/26/2021 12:00:00 AM EDT MADDISON ([facility]) GLUC BLD GLUC MNTR DEV CLEARED FDA SPEC HOME USE <td>P OCT GLUCOSE</td><td>Routine</td><td>04/09/2021 6:16 PM EDT</td><td></td><td> </td> 04/09/2021 06:16:00 PM EDT [facility] POC GLUCOSE <td>POC GLUCOSE</td><td>Rout ine</td><td>04/09/2021 12:42 PM EDT</td><td></td><td> </td> 04/09/2021 12:42:00 PM EDT [facility] POCT POTASSIUM <td>POCT POTASSIUM</td><td>R outine</td><td>04/09/2021 12:42 PM EDT</td><td></td><td> </td> 04/09/2021 12:42:00 PM EDT [facility] BLOOD COUNT HEMATOCRIT <td>POCT HEMATOCRIT</td><td> Routine</td><td>04/09/2021 12:42 PM EDT</td><td></td><td> </td> 04/09/2021 12:42:00 PM EDT [facility] GLUC BLD GLUC MNTR DEV CLEARED FDA SPEC HOME USE <td>P OCT GLUCOSE</td><td>Routine</td><td>04/09/2021 12:17 PM EDT</td><td></td><td> </td> 04/09/2021 12:17:00 PM EDT [facility] Anastomosis Arteriovenous Direct Any Site 04/09/2021 1 2:00:00 AM EDT MEDENT ([facility]) ECG ROUTINE ECG W/LEAST 12 LDS TRCG ONLY W/O I&R <td>E CG 12- LEAD</td><td>Routine</td><td>04/05/2021 10:37 AM EDT</td><td> End stage renal disease</td><td></td> 04/05/2021 10:37:32 AM EDT End stage renal disease [facility] End stage renal disease BLOOD COUNT COMPLETE AUTOMATED <td>CBC</td><td>Routine </td><td>04/05/2021 10:30 AM EDT</td><td> End stage renal disease</td><td> </td> 04/05/2021 10:30:00 AM EDT End stage renal disease [facility] End stage renal disease HEMOGLOBIN GLYCOSYLATED A1C <td>HEMOGLOBIN A1C</td><td>Routine</td><td>04/05/2021 10:30 AM EDT</td><td> End stage renal disease</td><td> </td> 04/05/2021 10:30:00 AM EDT End stage renal disease [facility] End stage renal disease BASIC METABOLIC PANEL CALCIUM TOTAL <td>BASIC METABOLI C PANEL</td><td>Routine</td><td>04/05/2021 10:30 AM EDT</td><td> End stage renal disease</td><td> </td> 04/05/2021 10:30:00 AM EDT End stage renal disease [facility] End stage renal disease 2019 NCOV AMPLIFIED <td>2019 NCOV AMPLIFIED</td> <td>STAT</td><td>04/05/2021 8:55 AM EDT</td><td> COVID-19</td><td> </td> 04/05/2021 08:55:00 AM EDT COVID-19 [facility] COVID-19 DUPLEX SCAN EXTRACRANIAL ART COMPL BI STUDY 02/01/2021 12:00:00 AM EDT MEDENT ([facility]) Summary provided electronically in CCDA format [...] EDT</td><td> Cholecystitis</td><td></td> 12/15/2020 11:10:00 AM EDT Cholecystitis [facility] Cholecystitis Summary provided electronically in CCDA format [...] 10/27/2020 12:00:00 AM EDT MADDISON ([facility] POCT GLUCOSE, DOCKED <td>POCT [...] [facility] X[facility] CHEST FRONTAL ONLY 39129 <td>XR CHEST FRONTAL ONLY 18800</td><td>Routine</td><td>10/16/2020 11:42 AM EST</td><td></td><td> </td> 10/16/2020 11:42:34 AM [...] [facility] XR CHEST FRONTAL ONLY 76913 <td>XR CHEST FRONTAL ONLY 86829</td><td>Routine</td><td>10/14/2020 10:41 AM EST</td><td></td><td> </td> 10/14/2020 10:41:49 AM [...] W/O CONTRAST MATERIAL <td>MR BILIARY TREE MRCP 53340</td><td>Routine</td><td>10/13/2020 4:42 PM EST</td><td></td><td> </td> 10/13/2020 04:42:13 PM [...] COMPLETE <td>US R ENAL OR AORTA COMPLETE 55702</td><td>Routine</td><td>10/12/2020 4:25 PM EST</td><td></td><td> </td> 10/12/2020 04:25:35 PM [facility] HEPATOBILIARY SYST IMAGING INCLUDING GALLBLADDER <td>N M HEPATOBILIARY IMAGING HIDA 11699</td><td>STAT</td><td>10/12/2020 3:48 PM EST</td><td></td><td> </td> 10/12/2020 03:48:45 PM [...] [facility] XR CHEST FRONTAL ONLY 75437 <td>XR CHEST FRONTAL ONLY 19891</td><td>Routine</td><td>10/11/2020 9:21 PM EST</td><td></td><td> </td> 10/11/2020 09:21:44 PM [...] REAL TIME W/IMAGE LIMITED <td>US ABDOMEN LIMITED [id number]</td><td>Routine</td><td>10/11/2020 7:34 PM EST</td><td></td><td> </td> 10/11/2020 07:34:33 PM [...] 06:03:00 PM [facility] RH/FQ code for distant site telehealt h services (Synchronous telemedicine service rendered via real-time interactive audio and video telecommunication system) [facility]/FQ code for distant site telehealt h services (Synchronous telemedicine service rendered via real-time interactive audio and video telecommunication system) 09/17/2020 12:00:00 AM EST CARMEN Mckeon ([facility]) Therapy noncompliance due to lack of comprehension The rapy noncompliance due to lack of comprehension 06/08/2020 12:00:00 AM EDT MADDISON ([facility]) [facility]/FQ code for distant site telehealt h services (Synchronous telemedicine service rendered via real-time interactive audio and video telecommunication system, Cost Sharing) [facility] code for distant site telehealt h services (Synchronous telemedicine service rendered via real-time interactive audio and video telecommunication system, Cost Sharing) 05/12/2020 12:00:00 AM EDT MADDISON ([facility]) Results ID Date Data Source [id number] 06/07/2021 01:10:00 PM EDT [facility] Card[facility] [address], [address] [place] [address] [facility] Note : [phone] Signed Patient: Lory Winkler Jr Acct:[id number] Visit Date: 06/07/21 : 1945 cc: Carolyn [...] our office, Mr. Winkler was admitted to [facility] with worsening renal failure. He was admitted in December of 2020. A Fsli-k-espubjeg was placed and Mr. Robert underwent hemodialysis [...] No other complaints stated at this time. 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 Is patient in pain?: No Primary Care Physician:: DYAN Snow Have you smoked within the past year: No Aller gies lactulose Allergy (Unknown, Verified 06/07/21 13:16) unknown Oadyrrp-NPM-AcM Reductase Inhibitor [Egplyht-Izs-Xrh Reductase Inhibitor] Adverse Reaction (Intermediate, Verified 06/07/21 13:16) myalgias aspirin Adverse Reaction (Unknown, Verified 06/07/21 13:16) Home Medications - Last Reconciled 06/08/21 by Durag De Leon MD ascorbate calcium (vitamin C) [...] use (more often th an not): None [facility] Medical History Bilateral carotid artery disease 60% [...] 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 Surgical [...] I25.10 - Atherosclerotic heart di sease of [facility] [place] coronary artery without angina pectoris (2) Status post percutaneous transluminal angioplasty (SEPARATOR OPERATOR): Code(s): Z98.62 - Peripheral vascular angioplasty status [...] DAILY Discontinued hydralazine Discontinued Reason: *Provider Requested (,DO,DATA WAREHOUSING SPECIALIST,PA) 25 mg PO TID Problems Did you [...] on 06/07/2021. Coding Level of Care Code 24714 Estab Pt Level 4 History Detailed Exam Detailed Diagnoses CAD (coronary artery disease) I25.10 Status post percutaneous transluminal angioplasty (SEPARATOR OPERATOR) Z98.62 Status post coronary artery bypass grafting Z95.1 H ypertension I10 Diastolic heart failure I50.30 Hyperlipidemia E78.5 Type 2 diabetes mellitus E11.9 Peripheral vascular disease I73.9 Chronic renal insufficiency, stage V N18.5 Signed By:Durga De Leon MD <<Signature on File>> Signed Date/Time: 06/08/21 0710 Co-Signer: Co-Signed Date/Time: Initializing User: Durga De Leon MD 1309 09 09 Name Value Range Interpretation Code Description Data Jazmín rce(s) Supporting Document(s) ID Date Data Source [id number] 04/26/2021 12:00:00 AM MILDRED WASHBURN ([facility]) Name Value Range Interpretation Code Description Data Jazmín rce(s) Supporting Document(s) Hemoglobin A1c/Hemoglobin.total in Blood 6.2 Normal Hgb A1c MDADISON ([facility]) ID Date Data Source [id number] 04/25/2021 06:42:52 AM EDT [facility] Name Date of Age Gend*PT [id number] Lory Winkler Jr. 1945 76 years M SDCPT Location Admission Date/Time Visit ID Attending [place] [place] 04/09/21 1126 --- --- EPI ID CSN Admitting Pro vider [id number] Iris Perdomo MD([id number]) [place] [address] OPERATIVE REPORT OPNAME: LORY WINKLER JR.#: [id number] #: [id number] ADMISSION DATE: 04/09/2021OB: 1945 SEX: M PT TYPE: H VascACCT #: [id number] CARE PHYSICIAN: ASHLEY ROJAS OF OPERATION: 04/09/2021IAGNOSIS:End-stage renal disease.PROCEDURE:Left arm AV fistula formation.SURGEON:Iris Perdomo MD.EMERY WHEEL WORKER:DYAN Garcia.ANESTHESIA:LMA with supplemental local.DESCRIPTION OF PROCEDURE:With the [...] to recovery room stable.BRE Cesar/NTS Job #: [id number] DOC #: [id number]: Dialysis Unit Name Value Range Interpretation Code Description Data Jazmín rce(s) Supporting Document(s) ID Date Data Source [id number] 04/09/2021 06:29:51 PM EDT [facility] Name Value Range Interpretation Code Description Data Jazmín rce(s) Supporting Document(s) POC NOVA GLU 127 mg/dL (70-99) H [facility] [place] [facility] ID Date Data Source [id number] 04/09/2021 04:13:09 PM EDT [facility]FORMATION[facility] MRN Name Date of Age Gend*PT [id number] Lory Winkler Jr. 1945 76 years M SDCPT Location Admission Date/Time Visit ID [facility] --- Sanchez Ceasr([id number]) EPI ID CSN Admitting Provider [id number] Iris Perdomo MD([id number])esrd risk avf bleeding nerve ischemia explained Name Value Range Interpretation Code Description Data Jazmín rce(s) Supporting Document(s) ID Date Data Source [id number] 04/09/2021 12:46:51 PM EDT [facility] Name Value Range Interpretation Code Description Data Jazmín rce(s) Supporting Document(s) POC POTASSIUM 4.2 MMOL/L (3.6-5.2) [facility] ID Date Data Source [id number] 04/09/2021 12:46:51 PM EDT [facility] Name Value Range Interpretation Code Description Data Jazmín rce(s) Supporting Document(s) POC GLU 76 MG/DL (70-99) [facility] ID Date Data Source [id number] 04/09/2021 12:46:51 PM EDT [facility] Name Value Range Interpretation Code Description Data Jazmín rce(s) Supporting Document(s) POC HCT 32 % (41.0-53.0) L [facility] ID Date Data Source [id number] 04/09/2021 12:56:11 PM EDT [facility] Name Value Range Interpretation Code Description Data Jazmín rce(s) Supporting Document(s) POC NOVA GLU 75 mg/dL (70-99) [facility] ID Date Data Source [id number] 04/05/2021 10:52:24 AM EDT [facility]FORMATION[facility] Name Date of Age Gend*PT [id number] Lory Winkler Jr. 1945 76 years M OPPT Location Admission Date/Time Visit ID Attending Provider --- --- --- Iris Perdomo MD ([id number]) EPI ID CSN Admitting Provider [id number] ---OUTPATIENT / OBSERVATIONAL SURGICAL OR INVASIVE PROCEDUREName: Lory Winkler Jr. : 1945 Sex: male Care Provider: Ezequiel DURHAMending Physician: Dr. Perdomo.HISTORY OF PRESENT ILLNESS: 76 years old male . He has a complex medicalhistory. He has end-stage renal disease. He is currently being dialyzed viaPermCath. He is now electing for AV fistula [...] neuropathy Strabismic amblyopia of left eye Tuberculosis Wmhuq-Wzjtmkalo-Mvbuu (WPW) syndromePAST SURGICAL HISTORY:Past Surgical History:Procedure Laterality [...] LIVER BIOPSY; Surgeon:Gabriel Gil MD; Location: [facility]; Service: Bariatric; Laterality:N/A; MULTIPLE TOOTH EXTRACTIONS PANENDOSCOPY N/A 05/17/2016 Procedure: ENDOSCOPY WITH H PYLORI BIOPSY W ANESTHESIA; Surgeon: MD Efraín; Location: [facility]; Service: Gastroenterology;Laterality: N/A; PermCath RightALLERGIES:AllergiesAllergen [...] 2 tablets by mouthdaily 06/10/16 04/05/21 Cherry Garcia PASocial HistoryTobacco Use Smoking status: Former Smoker [...] thyromegaly. No carotid bruits.MENTAL / NEUROLOGICAL STATUS: [id number]: Clear to auscultation. No wheezes, rhonchi or [...] of AV fistula left upper extremity.04/05/2021 10:51 AMKatlydia Ramirez NPThis document or parts of this document, were dictated using [employer] speaking software. A reasonable attempt at proofreading has beenmade to minimize errors. Please call with any questions or corrections.* Name Value Range Interpretation Code Description Data Jazmín rce(s) Supporting Document(s) ID Date Data Source [id number] 04/05/2021 10:48:54 AM EDT [facility] Name Value Range Interpretation Code Description Data [facility] rce(s) Supporting Document(s) EKG [facility] MSROMf7zKwZHDzCgc6PmUjRvNSIqID8rvce7B9E8tOOpB6KevLLsl6ucE7KjV7PpKQFvYDOWQU1TjPPv jb2 [file] f24YZ57Zmp4mzv773b+/r7+x9QuNo397mrFWljK2m2 98z/22g6upxE3Kf+Egf0zBBBElKq9Vs80/Azrx49Hi/MY92+VxtF78oreNah/tLpbZeFqMFO8BaM7Ufh 24ebSS3Os2MOL9foFctP5rBCkxdmgTkXr4p/r33p/UJoyIT93c0A/8aB/t+YmbmO4N+7rhqp72t1IPAn U2x/yJlQieOc2Iz6ucS7s5w+aHmf/Gno19NBx+zlFc vfbdGizOy6Xy14x53HospAVY+W0z2DjH0HA+0/gau5Q181qkpej42Gar1yA0PiG/Kt6K8qJ86696n/tG 38GqwY4zpT+8No5RzO+EkpNh69mBavKxt3nRaP4f/7F9k0unElODf4w61bFMljrRIa+Ao9WOlsj1r+qP Xtr7wE+dnPvG4u/s0rEI+BkL7a+v8CvS/iacxs0v1F v5Cpife6364C15fhhQar1v0P15mybOvy574MoNIzt8mh4I5RbR0kyjssn6OheOXwtEAcQvov+/0+s1/9 nJarU5Z+16PoVz+D8FRFq2R1Gf69fq9l703y9Ed510Y7c3tbt3d6uxADc+fHWyPxmzgLiXpP34q0qf8Z uoMe+J2I8thg4M8Atpym7CW17d1pPl12LQ67/rYMOU 9/+urPktf/f3yb+P701Z+5n+/644y4jhaG4yL/bYXy//p3U95G3s28qed9h3X5jcq8yxv3nD+mzrl3Jy DnuzblJcYfre/vd/3DXdrIo4wU9PxfBldey/L+mzuXOg05dXPiwcy5Vl76aKPslPrdg2xipSXDCR4ohN CHChOn7Ub1no5jgGjaa8v+s2VkynNZI6kEUsJPoRPb QQ/M8MwKr4Xuj+zHKn2V+doKG3iC8FW6m+vUwt1XNSofb2JS4s2Hp4MbZhuH4x2Sb4GYxjZb4KrnVUez xcTfuqP/U0B4ZbytPqbiiQGm2fN4Yl+7CT3Hc02hAGXV0Db1vy2ydfxEalobIq7RoXv2pzYiTE/wvqPd 4eh3ksg1ttdjaD5L3YiO+kp9NNG/584uZf024A/1jo 3EoQK0UqEN6hSJisomgT1MjRZ6ZbeWWfN0ShQ9QywBkzZ10RZelWj6CwCp0UlAf0VdDo7Qtwh6N/jued 899ZXbZN/0m9xTG97XL+lApmCllCmjVGmR6j8XSsidmrk+rQToCrrh+k1XIpLank9D72Ej6GAN0dYnYH 2rzUhfFCr0Z2lYnNYilVX5H/kA1H6yL2G38wBn1kke vESC4soEoOC58H+5KU3FS3RyXAm1HRjDtqnBtTl2wyUq6ImTb5RsO71Jmh06P/w70JU11Jz6BiDq2GcG w3HhFT9GtrL3W/hO8PV+MNsc+8GG/WNSepFzW1lnQ5oHTimuO0wA/n4718V9Wf/SaE2k3M+9Bi1WuVq6 CnXk6MtDg+J4R77645411ojJ6qutZe5jzGvo582EgQ HezSbtUxiUThIf4KVomHs8ZpFn3RgYe9Hxdd64Qt5CvmV8F/gG+Vu2CjrC+Xbu6s320BJp9qt+19Ou/W DR/+/734YmyN9IME/lGt2xH+bgj7l5t63gyj5TN1SR1033/s9vzI7TdM1Oemt+b3fd7+3uj3rD+za0s/ MB1ow43nSfDj5s+gmPV8fa2b58Gj5CnpOcnQmvngtv ITi4CQ22/f/aLmj8Tcd+jW9Hwi5xo//bpa/wRGrUJ8hsAa9bK/Vx7ecu+lge3Jny92nFQus3PEBX6N7W SPnnutwvneeEXd/PSfOmUiEc3B0A5Dn018HJgqHxLc+uuy/c1be1d9fviv+k5qAjx0E0zOhtM6/o3+/c c9DeqAX0k26lSQSXpzRy1BWaVBj9uh8zkcZvvduCvn P3S4/ePG4HV98N+vosAiz1y1g2Tdg/B+tRsrGo6naf5RWjWQf0twjzR7jePcXf90F5W10skDO9myc36K C+JrAAgqSI8HOdKrQHcMx2s7ejuqClXUzrnnLFftNCzP6aUK+t4npYW1Inlr3J6whhXV11QWOCw99h8g 3sFl4qYBJxb/tvQcg+zRd58Fy5D85yF5pXZcK9gKrb HZ0zLBXZ/LwF02iJ215aZ+d+ROyEtTvfzCW5fxsTt/water taxi operator+4HLWe/93NVNWu7O3a4wen/h/xPsvjcY9rU [file] 3sGlMpYCRVQ6Gjj5HfWTTeDOQEQn4+OdI5YLS9sJRvMzd2ULm0YOvrRSUHNm== ID Date Data Source [id number] 04/05/2021 04:29:11 PM EDT [facility] Name Value Range Interpretation Code Description Data Jazmín rce(s) Supporting Document(s) HEMOGLOBIN A1C @ 6.2 % (4.0-6.0) H [facility] Performed using Siemens TrendU immunoassa y.Care must be taken when interpreting IzT6naoetgjj in patients with a hemoglobin variantor decreased erythrocyte lifespan. Values 5.7 - 6.4% suggest prediabetes.Values >=6.5% are diagnostic for diabetes.REFERENCE: DIABETES CARE 2018: 41(S13-S27). EST AVERAGE GLUCOSE 131 mg/dL [facility] ID Date Data Source [id number] 04/05/2021 03:53:39 PM EDT [facility] Name Value Range Interpretation Code Description Data Jazmín rce(s) Supporting Document(s) SODIUM 139 mmol/L (136-145) [facility] POTASSIUM 4.1 mmol/L (3.6-5.2) [facility] CHLORIDE 103 mmol/L (100-108) [facility] CO2 27 mmol/L (22-31) [facility] ANION GAP 9 mmol/L (7-16) [facility] UREA NITROGEN 41 mg/dL (7-24) H [facility] CREATININE 5.91 mg/dL (0.80-1.30) H [facility] RESULT VERIFIED BY REPEAT TESTING.RESULT (S) CALLED TO AND READ BACK ZULEMA AT [id number] ON [id number] AT 1551 [place] [id number]. BUN/CREAT RATIO 6.9 RATIO (10.0-20.0) L [facility] GLUCOSE 142 mg/dL (70-99) H [facility] CALCIUM 8.5 mg/dL (8.4-10.2) [facility] GFR 9 ml/min/1.73m2 (>59) L [facility] GFR ( AMER) 11 ml/min/1.73m2 (>59) L [facility] GFR INTERPRETATION [facility] --NORMAL KIDNEY FUNCTION OR MILD DISEASE - GFR >OR= 60CHRONIC KIDNEY DISEASE - GFR 15 - 59RENAL FAILURE - GFR <15 Est. GFR calculation based on the MDRDstudy equation, which assumes a steadystate for creatinine. Est. GFR should notbe used for medication dosing. ID Date Data Source [id number] 04/05/2021 02:58:47 PM EDT [facility] Name Value Range Interpretation Code Description Data Jazmín rce(s) Supporting Document(s) WBC 7.7 10*3/uL (4.1-11.0) [facility] [place] RBC 3.26 10*6/uL (4.60-6.10) L [facility] HGB 11.0 g/dL (13.5-18.0) L [facility] HCT 32.9 % (41.0-53.0) L [facility] MCV 101.1 fL (80.0-95.0) H [facility] MCH 33.8 pg (27.0-32.0) H [facility] MCHC 33.5 g/dL (32.0-36.0) [facility] RDW 15.6 % (10.5-14.5) H [facility] PLT 186 10*3/uL (150-450) [facility] MPV 9.3 fL (7.1-10.7) [facility] ID Date Data Source [id number] 04/05/2021 08:55:00 AM EDT [facility] Name Value Range Interpretation Code Description Data Jazmín rce(s) Supporting Document(s) SARS coronavirus 2 RNA [Presence] in Res piratory specimen by MATHEW with probe detection NOT DETECTED [facility] This lab was reported by [facility]. ID Date Data Source [id number] 04/05/2021 02:36:23 PM EDT [facility] Name Value Range Interpretation Code Description Data Jazmín rce(s) Supporting Document(s) SPECIMEN DESCRIPTION [facility] COVID 19 RESULT (NDET) [facility] [place] NEGATIVE COVID-19 RESULTS DONOT PRECLUDE COVID-2019 INFECTION ANDSHOULD NOT BE USED THE SOLE BASISFOR PATIENT MANAGEMENT DECISIONS. COMMENT [facility] [place] THE [place] FDA HAS MADE THIS TEST AVAILABL EUNDER AN EMERGENCY USE AUTHORIZATION(EUA) FOR THE DETECTION AND/OR DIAGNOSISOF THE VIRUS THAT CAUSES COVID-19.THIS ASSAY AMPLIFIES AND DETECTS TARGETDNA USING LEASE OUT MAN- MEDIATEDAMPLIFICATIONTESTING PERFORMED ON [employer] FIRST TEST [facility] [place] EMPLOYED IN HLTHCARE [facility] of [place] SYMPTOMATIC [facility] [place] DATE OF SYMPT ONSET [facility] HOSPITALIZED [facility] [place] [facility] [place] [facility] CONGREGATE CARE SET [facility] ID Date Data Source [id number] 02/01/2021 12:06:00 PM EDT [facility] ([facility] Name Value Range Interpretation Code Description Data Jazmín rce(s) Supporting Document(s) Carotid Ultrasound Bilateral Laboratory test result [facility] ([facility]) ID Date Data Source [id number] 01/06/2021 02:55:00 PM EDT [facility] Name Value Range Interpretation Code Description Data Jazmín rce(s) Supporting Document(s) SARS coronavirus 2 RNA [Presence] in Res piratory specimen by MATHEW with probe detection [facility] This lab was ordered by [facility] a nd reported by [facility]. ID Date Data Source [id number] 01/01/2021 11:47:06 AM EDT [facility] Name Value Range Interpretation Code Description Data Jazmín rce(s) Supporting Document(s) Progress Note [facility] WEBMCp4zDhQHYeLw32/KCDopUJXmo1BfPMvpLYf4GVqjOSXyG1IyPNR3jH9dTKP5YSxPIaHpOpBpUQJn lbm [file] AgICAgICAgICAgICAgICAgICAgICAgICAgICAgICAgICAgICAgICAgICAgICAgICAgICAgICAgICAgIC AgICAgICAgICAgICAgICANCiAgICAgICAgICAgICAgICAgICAgICAgICAgICAgICAgICAgICAgICAgIC AgICAgICAgICAgICAgICAgICAgICAgICAgICAgICAg ICAgICAgICAgICAgICAgICAgICAgICAgICANCiAgICAgICAgICAgICAgICAgICAgICAgICAgICAgICAg ICAgICAgICAgICAgICAgICAgICAgICAgICAgICAgICAgICAgICAgICAgICAgICAgICAgICAgICAgICAg ICAgICAgICANCiAgICAgICAgICAgICAgICAgICAgIC AgICAgICAgICAgICAgICAgICAgICAgICAgICAgICAgICAgICAgICAgICAgICAgICAgICAgICAgICAgIC AgICAgICAgICAgICAgICAgICANCiAgICAgICAgICAgICAgICAgICAgICAgICAgICAgICAgICAgICAgIC AgICAgICAgICAgICAgICAgICAgICAgICAgICAgICAg ICAgICAgICAgICAgICAgICAgICAgICAgICAgICANCiAgICAgICAgICAgICAgICAgICAgICAgICAgICAg ICAgICAgICAgICAgICAgICAgICAgICAgICAgICAgICAgICAgICAgICAgICAgICAgICAgICAgICAgICAg ICAgICAgICAgICANCiAgICAgICAgICAgICAgICAgIC AgICAgICAgICAgICAgICAgICAgICAgICAgICAgICAgICAgICAgICAgICAgICAgICAgICAgICAgICAgIC AgICAgICAgICAgICAgICAgICAgICANCiAgICAgICAgICAgICAgICAgICAgICAgICAgICAgICAgICAgIC AgICAgICAgICAgICAgICAgICAgICAgICAgICAgICAg ICAgICAgICAgICAgICAgICAgICAgICAgICAgICAgICANCiAgICAgICAgICAgICAgICAgICAgICAgICAg ICAgICAgICAgICAgICAgICAgICAgICAgICAgICAgICAgICAgICAgICAgICAgICAgICAgICAgICAgICAg ICAgICAgICAgICAgICANCiAgICAgICAgICAgICAgIC AgICAgICAgICAgICAgICAgICAgICAgICAgICAgICAgICAgICAgICAgICAgICAgICAgICAgICAgICAgIC AgICAgICAgICAgICAgICAgICAgICAgICANCjw/nOMcB9vdyFDltkF9A1vlXn5XWt7JMZ5fj3FzEWPqJD ywseOfDbjJGrZmCYGiRfqVBrf5JFnpVX6YzJRkA2Kx J1UzUNetOP0WBGVsMVRqpUDaJWAzESHuEnO8YMNeWCurZG6MkHGvXYkhQJNfXWOkOhKwGMQzGDRbKSEr GRFjKBNTMLBuBMEsTdIsAEytEB4Bb3AjaVN9VOp+Ac2VAT8sf2YwNNxcBJCrAN9vqw0ZEAbFHrZhE6To oeU3UYQdDWXaHt3GLFYzCMRanCKpDHEoYHKYUqXmN2 LtbZ31ZEXCHa8+POppaqCoYgdQOoHpJOXwf8TcMUx5PQ9CPRKaDPm6zXPmLVNtY4Psi3CdCm16PDJbAz rfYBqjoCFeoYJXTE7xE0HnfDQznytwERWhAZIlRL9yYN0iMWQsDNOeJtU5ZHGZJV9IXZEaRQSfeTZsBR CkGUHOGP7DMIqfUYU3ARPbzeZdqUReEIkzZR4FNIHw bnQgMzAgMCBSDQo+Ba6GBF4jl3OwNUblWnZnWJ0vin4DHGvUAoBnY0A8nQWoB0P7SDsjWa3CIGJsFGCg UjdhAYOPZLpvMZ4SGC6lrsT0PB2EqJKvXDJjXHGxzMBrGRu0I05scPHqYJtbHE3PCBX+Shawn+Cj2LGZEy FCDeZGMpSuEhLCJRFqDmX5FgR9ANf6XtC6FaOC26bH fiitWoPUkyEZ6FAY4zWQBlNGFBIS5OdIUyfY7fgxEsZGEkOFKAMxRiT06vxXJpIMIkRSJ4LZQdDy7UDP FjO0NpuzKqdTqsalInYMZuPQMQAQ2ODIwmltVypGYigZsfVZ67lQrgMZ7BLc8BGoHkME9ujw7ZiRJwFh 3CMDQkZw2BQRBkAPPsRYEbLCP4XUTkFyAtRNvkMFUi SROySJW4SNWsCIUhVJ9GLgRoWAUsVcK7TdRaBHCvDXQzqu0DQYWmZSAxOfGqWoKkABTmYILkQQwnMIJh QVXhCEB1GVAcHIBdHR1SNsKyYUFoDHM5VzZrYKLxUCOycu3VTSNdGGOiYowjECZlVEJeQJDhAOjxNUMs QVN2ITLsKWOlGDAeCD9VOuKpUZOlLIqbDLVcCBVpFM Dxlp0GPHBpYQQgJMc8QtIeZPSaPNBiONpxJFNjBQXnPQfrYNZfWMEjUF2FLlJbYLQeCEU8LVvgIUKiJH Dxrq4ZQVByRINoXxS0PXFbSZBqOZZcYOicFLInWZJ3WSx7NNFgWDUbRB9ZYkWwCEQfQWCqHXTgBZWiUD Qlxv5NHKEhHDIdZpJ6RCOuPRItEJBaETowRJZfLCQ1 UxX5GNJzOEUtTN0CVjPqTIKiJDI8MzCmNUXqCVRzxg6SMMNeTKKdGkR5AKCsKSZjKRAsAKoiEUVlTUN3 XgqsDJZuRMEuXR7KJbYsHAOzFNb2JSPxODTaJFKyhz5MMZJzXKFgEDBsEMEgDPKqCMAiRTdjEZTlRBN4 TiA7ZAQgUWRpYH1MErBgRZQpQoe4SZWjIBStLDBerq 0UMURlPCRqMAV8JJSpBGUbQXYoWLyoSIQpACFeIhKsVORwRHSiTM4UUjArJCPdPxRoQOLlPPPsPBGinj 9DPFLoUXGgLKP7OwSwHVYgTBTuIEvgBHOdBGDiUQAuJHSwFISnDG9ZWqDrWDBuEtL2JbtrBUKiHQTbcr 0KMDAwMDAzMzQzMSAwMDAwMCBuDQowMDAwMDMzNTAy IRPxJQIgAU8CLmMiASYyYnD1LTSuLHXuZGPita3JbODohUufkn9MRMdQPi7AmDsaDZCwWQspSp5lmUIa JiUyPFWZQw0CxgTcDZBgGFVECTrwYWAhIHJrAXR9QBNvGvS2LjMkYeIsHAFoLmDlBZH9PPY4UDwiZmU3 K1QpBvs2OqSaDpSlUfPpMMFxBeO2FkByCYSpMTwpEY I+UR6yUOe+Ib4Wb6AputT3pkEuPRxbTmlxHA8XHJHEQ9UFWv== ID Date Data Source [id number] 12/24/2020 06:48:00 PM EDT [facility] Name Value Range Interpretation Code Description Data Jazmín rce(s) Supporting Document(s) CREAT RANDOM URINE 69.9 MG/DL [facility] No Normal Ranges Available for this Pro cedure. MICROALBUMIN,URINE 208.0 MG/L [facility] MICROALBUM/CREATININE RATIO,UR 297.7 UG/MG CR 0.0-30.0 H [facility] ID Date Data Source [id number] 12/24/2020 11:40:00 AM EDT [facility]) Name Value Range Interpretation Code Description Data Jazmín rce(s) Supporting Document(s) Hemoglobin A1c/Hemoglobin.total in Blood 5.6 Normal Hgb A1c MADDISON (Jina) ID Date Data Source [id number] 12/16/2020 01:38:46 PM EDT [facility] IR PERCUTANEOUS CHOLECYSTOSTOMY TUBE INS ERTIONFINAL [...] was prepped and draped with sterile technique. Sales Marketing Director image demonstrates right percutaneous cholecystostomy drain in [...] rce(s) Supporting Document(s) ID Date Data Source [id number] 12/11/2020 01:06:00 PM EDT [facility] Name Value Range Interpretation Code Description Data Jazmín rce(s) Supporting Document(s) SARS-CoV-2 RNA 2019 nCoV Real-Time RT-PCR: NOT DETECTED [facility] This lab was ordered by [facility] and reported by [facility]. ID Date Data Source [id number] 12/11/2020 07:19:25 PM EDT [facility] Name Value Range Interpretation Code Description Data Jazmín rce(s) Supporting Document(s) Specimen source [Identifier] of Unspecified specimen [facility] SARS-CoV-2 RNA 2019 nCoV Real-Time RT-PCR: NOT DETECTED [facility] Assay Performed [facility] Patients first test for condition [facility] 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 [facility] Patient has symptoms related to condition [facility] When did you start to experience these symptoms [Date and time] [Phen X] [facility] Patient was hospitalized because of this condition [facility] patient was admitted to ICU for [facility] Patient resides in a congregate care setting [facility] status [facility] ID Date Data Source [id number] 12/11/2020 01:05:20 PM EDT [facility] Name Value Range Interpretation Code Description Data Jazmín rce(s) Supporting Document(s) Progress Note [facility] NGAHKm7lEjSRGsLp28/EQDufUWBzt2HhSIlgVNi9LZkrFAWwN1CwXCY7zW5eEJV3BJyFHyJcKhIuLPQp lbm [file] assembler liquid center+S1CsGF4+nYGU1yIhI5lYAu+DL98dcAhW0LD3959nfeg75hwoYxXB83Rwzo/sF+/z9lPklns07a+t6 [file] ICAgICAgICAgICAgICAgICAgICAgICAgICAgICAgIC QnOOMkEJCyMLLhYKKaHCDaDOHuHFGhID4IOFAsAIHxTHAbFHCyKTVfTFCkVZCjIFTyNSVbWRJkJLVtEP AgICAgICAgICAgICAgICAgICAgICAgICAgICAgICAgICAgICAgICAgICAgICAgICAgICAgICAgICAgIC GcOWEgWR9IYMJoTNIeVHMbEOVuFIJqIPLuOWZtJWNf ICAgICAgICAgICAgICAgICAgICAgICAgICAgICAgICAgICAgICAgICAgICAgICAgICAgICAgICAgICAg KVEzCLVuYFCnUWGqLSBwHY4YKHXhPDToTMSkMIGuWJEoUEBdWVOhSLIzBWQcFHTtVOHwIKOpOFSuFTNw ICAgICAgICAgICAgICAgICAgICAgICAgICAgICAgIC XhWYYlICCvPLLcWKReCLKdTFAiHWMsZAIzTM0ELRBxQGDyMWBxPYQcKBLvYNGoMENvASFzNKThOHPlOQ AgICAgICAgICAgICAgICAgICAgICAgICAgICAgICAgICAgICAgICAgICAgICAgICAgICAgICAgICAgIC SqGMYoGLFyUS5DDXYnPLFyKVHoYMDxJJYjIZEvCVCz ICAgICAgICAgICAgICAgICAgICAgICAgICAgICAgICAgICAgICAgICAgICAgICAgICAgICAgICAgICAg KZUoRQPhYIQeBETtPDSvIIVzZY3LVFZxZARxTJJeXGBkSLTbGXCpXXUuXSMqJHEyUEZeZWDnCCIrNHZr ICAgICAgICAgICAgICAgICAgICAgICAgICAgICAgIC MkFJTtRESqMUTcEBBkOXNnRGNgZTIoSLMgCAJeBN8WMJNvMWUpORPcBZNjMWKkCYXsHMHhVRVuEBOjYB AgICAgICAgICAgICAgICAgICAgICAgICAgICAgICAgICAgICAgICAgICAgICAgICAgICAgICAgICAgIC BqDYDaYJHlDFMrDS8LOIIsUNKyKPWmWZSfFTKpHEAr ICAgICAgICAgICAgICAgICAgICAgICAgICAgICAgICAgICAgICAgICAgICAgICAgICAgICAgICAgICAg OAWgIPZwDFDcBQVcFWTiPYIkOWZiNE5JPWNbLNAoNPTcEVGwVXGwFAFlNZWiXWTrHBJvWPCiIPBjEEPu ICAgICAgICAgICAgICAgICAgICAgICAgICAgICAgIC AaQDEhGFAcPQEdKZLnIVZwDBQlHMSmLDIwPNIkBQRtUC2SEY43gEQyl1E3LYHeMM8mphp/Ha1NSQwslg TmeGIgUP8XGvBoJO9rmu5JKbLiFF3xsv5AMZxSYaDuV8K9xGHoYEHqRGAVDiKsY48vYRemEd98WCbnMJ LyMrVmQNq4Mz2IXvVnQ1hlABUgYaD0LHGyKiAtYUui WH2Kp4MgiQNfDSu+Xt6QQZ8dr0IcMBswLYIqSF0lfo4ZBQoJPvOiK6MsypX9LIHfQENnAh1IVZZbDVMm tNXhWJGjTGHEZqIbW7WbdC83PBILZr4+QTwxhaOjPvoWXrAdLPZzp7XrEZz0KG0TVJSlIRt3yMEoONAm J3Bas4NdBs59MCGfDssoZgIjbnPiBCWXptfhQ2BtoX ghDb1uTTKdLG9rZI7yOBErECChDlPtWPQANY6ECJArUKBgbVBjXKTqXFQMGS0TQLhsPVN5LFEvwlHamJ HfHRakBH0IAJDcpcUnDKyjSAWSLDq+Bx6JQU3fj6RbQItwNBWeCR2emr7URNePShLaU2V2sURyJ9Y4WU dfAq9IDXOsLULhZHxuKEEPMPrsVP9IFP1jqdN2EO4J aTPiBAJyHXJqmTDxKBd8D04bhIChRSflBO6EKZV+Shawn+Dj9YWJDeDDLbSOJqNyHuDLXZInAeY1ZdB3RQ w2QzU8WwXN41lOryhbDhJVjtIY9MXH3rNLBaWBNRNZ0AyNOcoJ6unyEdBELdNFFCCcBoX56rzDLbVHIu DAN6DFBwBh6QUPZgD1CcqmYzuGfszqFdALTbXNPJJW 9CRHruccKhwSHwtPomPA48uZicYH2OGr2ZOrQeUW1iux6QsMJbLg0DWQTxAy0FIRByCBGyXPMzJED7GG FtJpRhHVqxGUFgFMXrXTA6PIDqDWJoKC9IVcSgLRErQYyoSJEbQOMeVFCrkq4WWWDtJRGwGZJhHFPpXO UbOHEhLUioTQJnNTWnQII8VASeINVvAD1VAfMsNNGl YWEwXkEcZFYuZUChfx0ULGQhXLHbRoNrByNpTSUeXXFyTSzkDWApGDIuMlh7YOFbAUWhBB7TNiRdKSRg ZTA9SWEfXJVyCVWbnl1CBRGbCHNjOnF8AZKrBDDzHUViLGbqWSSuTNW4CrO6UMOfHKXcOB1ZVkFwWGAy DQQ1PsZoXSLqRLYrwa5VTLBtYRQmGGPvTRMlNEXePV KqNLqyOBRnYYI1TqGvXQRkSEWeWF3IEuSdDNApZEU7IytbWABmWKJcia4JBDIyRYPrAhq5ZFJtSXMvEU OeKMajFFAqUMZ0AQD5ZNUvTPIzGA7NFlEpPLVjOMhzNtXwAQBlNLFxoo2KEYEnFNUuGmR0NKJfUXXiYW DbRLwbQAToDNC4XQNaYAZeCRToTG1RGaOuKHYoFPsm YNCkQPZnPKHchm6ISNJhHNMqXCWwRHNqSWXrYEHqVTk3vyJazUZbKKt1HO4WK6GfykCsWnUVAn6Nd806 GVIuSOLkYn1SM5wgYr3rXQElJUSGBm2EEMo8HZP1ODG7DRViUCdaQkWsQNH2MpdeAyw0SUF8HiJpRXV+ TKr5KjdtUdEcS0V8AQQ5CIXsBAi3UYU0GKCtOwxhQ4 KlOu5bUTQSYv8+QIfoeKEjrJqmVHWQSaP2JOl3HWidGBCDJw7S ID Date Data Source [id number] 11/26/2020 04:27:58 PM EDT [facility] Name Value Range Interpretation Code Description Data Jazmín rce(s) Supporting Document(s) Progress Note [facility] WWAUFv2uBlWWCuIw94/KSGjuZQRir9KrRLbnANz8ISxuDXQiT6CiJJY8iZ0oAAW7RRmIZeFuNtYzPET4 lbm [file] 4GKDNWM7PBGl== ID Date Data Source [id number] 11/25/2020 12:34:00 PM EDT [facility] Cardiology [address] [place] [address], [address] [place] [address] Cardiology Note : [id number] Signed Patient: Lory Winkler Jr Acct:[id number] Visit Date: 11/25/20 : 1945 Cardiology HPI History of present illness History of present illness: Mr. Lory Winkler is a pleasant 75-year-old gentleman who returns to [facility] with his . He was last [...] our office, Mr. Winkler was admitted to [facility] in [place], [place] in October of 2020 with [...] responded to intravenous furosemide therapy. Mr. Guevara ga'karie blood pressure became elevated and hydralazine was [...] states last month he was admitted at [facility] for issues with his gallbladder. 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 Surgical [...] Code(s): I25.10 - Atherosclerotic heart disease of 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 He currently has a biliary drain in place. At this time, I recommend that we continue to promote the importance of lifestyle intervention through nutrition, weight management, and exercise. I have asked Mr. Winkler to avoid seasoning hisfoods with salt, to avoid processed foods, to avoid simple carbohydrates, and to avoid rbt-bctryrtablicw-jjcszdmqdkjn drugs. For now, I recommend to continue [...] oncologist is Dr. Janae Roberts and his virtual recruiter is Dr. Nellie Guevara. Mr. Winkler has [...] disease) I25.10 Status post percutaneous transluminal angioplasty (SEPARATOR OPERATOR) Z98.62 Status post coronary artery bypass grafting [...] rce(s) Supporting Document(s) ID Date Data Source [id number] 10/18/2020 05:11:31 PM EST [facility] Name Value Range Interpretation Code Description Data Jazmín rce(s) Supporting Document(s) Discharge Summary [facility] LAATRo4lDnVSSrIl24/GIGrnTURrl1ZcEIaqNPd9GJcqITGqK0ToUFR1pG0dHSX8TBqUNuGbKtQoScA3 lbm JqQnnQFhZnEAUnFyiJArAaSNqiHroluMPsVJ7IcKB2YKHbX19gCRFxAUEpO8MvUMNkNEd+Je2QBJKfcM MyIW3YMaeD5Q2ug8vZNc6+iT7MRqbp0KKRiTDh/uYmaXyHs+vabosC/iMGuG2TjitE1WI//rZaYMzI0f bChMXKAP3JcmZxqX66jhHIjmc//cmNLlD6kgx/rf+M ElddzdTf/6swiun5/If2F6qOnID7qVFFN6W/teuHG548OIzpYrqWkh0fn01mERm+nt92epfazGQfYw+O G9pI1o76TB4Wz+tTu61TT5ABPk2y/xJnu6jAZ2R7G/U7Z8IoAT45Cim8hkhZFaUop85shXAH6S4gBxr0 afTGG7Y84BSWrGELu6yT/LspJKyJdds6Q/o921FPgg 4jfq2unqFOR2A6c0CvQsocBXoTTvkoD32l3qsEm3zV2G9Nog4waaGOW8cTj2w2WNLnBSHpvzKnSn31kU 0scjUIc+Z0xCZAfJ3YD2uDWIguoN6xbbsBgsoyaU0cn2k/qRoXHX6MJogrIKDRMrT7YA1oDc7+9409Ug bpJ5f19WdNhhpUcKV9Grje/qWfErXP2TKeo8fhyJ3l ibiXm6dbo8WV0nT1TzDcoD6B/V+527jKYqt3U5AwgZo/pDxbJnydWIc88ITQsh+Lj6mv85l1Zip30jDj n8htIA9YwJ4qIqZgrLeuaO9QxlWnwHjvsHhIYhXeerbHBkxV7wHRusJa81eJ2CwpAAAO920MzVeoNDbD jXyxkgAs3BtrdZ1ESqROvmEpbhoclLMNsGXhpBvU74 /Veena/KzP4EfGQsjdxhojjOgabvpJ5Sb3eJK3eWG9qW9yvBhY5w4X0jjklfGxX3F77bxL/V5dR+4PWCqE [file] xZokIOIKAnE1PhS5LRbhYJIXAj0R ID Date Data Source [id number] 10/18/2020 12:44:29 PM [facility] Value Range Interpretation Code Description Data Jazmín rce(s) Supporting Document(s) Glucose [Mass/volume] in Capillary blood by Glucometer 155 mg/dL 70- 140 H [facility] ID Date Data Source [id number] 10/18/2020 08:50:30 AM [facility] Value Range Interpretation Code Description Data Jazmín rce(s) Supporting Document(s) Glucose [Mass/volume] in Capillary blood by Glucometer 119 mg/dL 70- 140 [facility] ID Date Data Source [id number] 10/18/2020 04:35:49 AM [facility] Value Range Interpretation Code Description Data Jazmín rce(s) Supporting Document(s) Albumin [Mass/volume] in Serum or Plasma by Bromocresol green (BCG) dye binding method 3.1 g/dL 3.5-5.2 [facility] Bilirubin.total [Mass/volume] in Serum or Plasma 0.8 mg/dL <1.2 [facility] Bilirubin.direct [Mass/volume] in Serum or Plasma 0.5 mg/dL <0.3 H [facility] Alkaline phosphatase [Enzymatic activity/volume] in Serum or Plasma 116 U/L 40-129 [facility] Aspartate aminotransferase [Enzymatic activity/volume] in Serum or Plasma 31 U/L <40 [facility] Alanine aminotransferase [Enzymatic activity/volume] in Seru m or Plasma 62 U/L <41 H [facility] Protein [Mass/volume] in Serum or Plasma 5.9 g/dL 6.4-8.3 L [facility] ID Date Data Source [id number] 10/18/2020 04:35:49 AM [facility] Value Range Interpretation Code Description Data Jazmín rce(s) Supporting Document(s) Magnesium [Mass/volume] in Serum or Plasma 1.9 mg/dL 1.6-2.4 [facility] ID Date Data Source [id number] 10/18/2020 04:35:49 AM EST [facility] Name Value Range Interpretation Code Description Data Jazmín rce(s) Supporting Document(s) Bicarbonate [Moles/volume] in Serum 21 mmol/L 22-29 L [facility] Chloride [Moles/volume] in Serum or Plasma 102 mmol/L 98-107 [facility] Creatinine [Mass/volume] in Serum or Plasma 2.88 mg/dL 0.70-1.20 H [facility] Glucose [Mass/volume] in Serum or Plasma 122 mg/dL 70-140 [facility] Potassium [Moles/volume] in Serum or Plasma 3.6 mmol/L 3.4-5.1 [facility] Sodium [Moles/volume] in Serum or Plasma 136 mmol/L 136-145 [facility] Urea nitrogen [Mass/volume] in Serum or Plasma 43 mg/dL 8-23 H [facility] Anion gap 3 in Serum or Plasma 13 mmol/L 8-15 [facility] Osmolality of Serum or Plasma by calculation 294 mosm/kg 275-300 [facility] Creatinine/Urea nitrogen [Mass Ratio] in Serum or Plasma 15 [facility] Calcium [Mass/volume] in Serum or Plasma 8.5 mg/dL 8.8-10.2 L [facility] Glomerular filtration rate/1.73 sq M pre dicted among non-blacks [Volume Rate/Area] in Serum or Plasma by Creatinine-based formula (MDRD) 20 mL/min/1.73m2 >60 L [facility] Glomerular filtration rate/1.73 sq M pre dicted among blacks [Volume Rate/Area] in Serum or Plasma by Creatinine-based formula (MDRD) 23 mL/min/1.73m2 >60 L [facility] ID Date Data Source [id number] 10/18/2020 05:14:53 AM [facility] Name Value Range Interpretation Code Description Data Jazmín rce(s) Supporting Document(s) Leukocytes [#/volume] in Blood by Automated count 12.2 10*3/uL 4-10 H [facility] Erythrocytes [#/volume] in Blood by Automated count 2.60 10*6/uL 4.6- 6.1 L [facility] Hemoglobin [Mass/volume] in Blood 8.6 g/dL 13.5-18 L [facility] Hematocrit [Volume Fraction] of Blood by Automated count 26.0 % 4 1-53 L [facility] Erythrocyte mean corpuscular volume [Entitic volume] by Auto mated count 99.8 fL 80-96 H [facility] Erythrocyte mean corpuscular hemoglobin [Entitic mass] by Automated count 33.0 pg 27-33 [facility] Erythrocyte mean corpuscular hemoglobin concentration [Mass/volume] by Automated count 33.1 g/dL 32.0-36.0 [facility] Erythrocyte distribution width [Ratio] by Automated count 15.9 % 11.5-14.5 H [facility] Platelets [#/volume] in Blood by Automated count 227 10*3/uL 150-400 [facility] Differential cell count method - Blood [facility] Neutrophils/100 leukocytes in Blood by Automated count 65 % [facility] Lymphocytes/100 leukocytes in Blood by Automated count 22 % [facility] Monocytes/100 leukocytes in Blood by Automated count 4 % [facility] Eosinophils/100 leukocytes in Blood by Automated count 2 % [facility] Basophils/100 leukocytes in Blood by Automated count 2 % [facility] Neutrophils [#/volume] in Blood by Automated count 7.93 10*3/uL 1.8-7 .0 [facility] Lymphocytes [#/volume] in Blood by Automated count 2.68 10*3/uL 1.2-4 .0 [facility] Monocytes [#/volume] in Blood by Automated count 0.49 10*3/uL 0-0.8 [facility] Eosinophils [#/volume] in Blood by Automated count 0.24 10*3/uL 0-0.5 [facility] Basophils [#/volume] in Blood by Automated count 0.24 10*3/uL 0-0.2 H [facility] Band form neutrophils/100 leukocytes in Blood by Manual count 3 % [facility] Metamyelocytes/100 leukocytes in Blood by Manual count 2 % [facility] Band form neutrophils [#/volume] in Blood by Manual count 0.37 10*3 /uL 0-0.6 [facility] Metamyelocytes [#/volume] in Blood by Manual count 0.24 10*3/uL 0-0 H [facility] Stomatocytes [Presence] in Blood by Light microscopy [facility] ID Date Data Source [id number] 10/17/2020 09:42:11 PM [facility] Name Value Range Interpretation Code Description Data Jazmín rce(s) Supporting Document(s) Glucose [Mass/volume] in Capillary blood by Glucometer 179 mg/dL 70- 140 H [facility] ID Date Data Source [id number] 10/17/2020 05:18:40 PM [facility] Name Value Range Interpretation Code Description Data Jazmín rce(s) Supporting Document(s) Glucose [Mass/volume] in Capillary blood by Glucometer 179 mg/dL 70- 140 H [facility] ID Date Data Source [id number] 10/18/2020 10:36:51 AM [facility] Service Cmnt XXX-Imp : NoneMicroorganism XXX [...] rce(s) Supporting Document(s) ID Date Data Source [id number] 10/17/2020 12:20:15 PM [facility] Value Range Interpretation Code Description Data Jazmín rce(s) Supporting Document(s) Glucose [Mass/volume] in Capillary blood by Glucometer 186 mg/dL 70- 140 H [facility] ID Date Data Source [id number] 10/17/2020 08:28:53 AM [facility] Value Range Interpretation Code Description Data Jazmín rce(s) Supporting Document(s) Glucose [Mass/volume] in Capillary blood by Glucometer 149 mg/dL 70- 140 H [facility] ID Date Data Source [id number] 10/17/2020 03:06:31 AM [facility] Value Range Interpretation Code Description Data Jazmín rce(s) Supporting Document(s) Albumin [Mass/volume] in Serum or Plasma by Bromocresol green (BCG) dye binding method 3.5 g/dL 3.5-5.2 [facility] Bilirubin.total [Mass/volume] in Serum or Plasma 1.1 mg/dL <1.2 [facility] Bilirubin.direct [Mass/volume] in Serum or Plasma 0.7 mg/dL <0.3 H [facility] Alkaline phosphatase [Enzymatic activity/volume] in Serum or Plasma 145 U/L 40-129 H [facility] Aspartate aminotransferase [Enzymatic activity/volume] in Serum or Plasma 33 U/L <40 [facility] Alanine aminotransferase [Enzymatic activity/volume] in Seru m or Plasma 74 U/L <41 H [facility] Protein [Mass/volume] in Serum or Plasma 6.6 g/dL 6.4-8.3 [facility] ID Date Data Source [id number] 10/17/2020 03:06:31 AM [facility] Name Value Range Interpretation Code Description Data Jazmín rce(s) Supporting Document(s) Magnesium [Mass/volume] in Serum or Plasma 2.0 mg/dL 1.6-2.4 [facility] ID Date Data Source [id number] 10/17/2020 03:06:31 AM [facility] Name Value Range Interpretation Code Description Data Jazmín rce(s) Supporting Document(s) Bicarbonate [Moles/volume] in Serum 20 mmol/L 22-29 L [facility] Chloride [Moles/volume] in Serum or Plasma 100 mmol/L 98-107 [facility] Creatinine [Mass/volume] in Serum or Plasma 2.78 mg/dL 0.70-1.20 H [facility] Glucose [Mass/volume] in Serum or Plasma 142 mg/dL 70-140 H [facility] Potassium [Moles/volume] in Serum or Plasma 3.5 mmol/L 3.4-5.1 [facility] Sodium [Moles/volume] in Serum or Plasma 135 mmol/L 136-145 L [facility] Urea nitrogen [Mass/volume] in Serum or Plasma 42 mg/dL 8-23 H [facility] Anion gap 3 in Serum or Plasma 15 mmol/L 8-15 [facility] Osmolality of Serum or Plasma by calculation 293 mosm/kg 275-300 [facility] Creatinine/Urea nitrogen [Mass Ratio] in Serum or Plasma 15 [facility] Calcium [Mass/volume] in Serum or Plasma 9.0 mg/dL 8.8-10.2 [facility] Glomerular filtration rate/1.73 sq M pre dicted among non-blacks [Volume Rate/Area] in Serum or Plasma by Creatinine-based formula (MDRD) 21 mL/min/1.73m2 >60 L [facility] Glomerular filtration rate/1.73 sq M pre dicted among blacks [Volume Rate/Area] in Serum or Plasma by Creatinine-based formula (MDRD) 24 mL/min/1.73m2 >60 L [facility] ID Date Data Source [id number] 10/17/2020 04:51:39 AM EST [facility] Name Value Range Interpretation Code Description Data Jazmín rce(s) Supporting Document(s) Leukocytes [#/volume] in Blood by Automated count 11.1 10*3/uL 4-10 [facility] Erythrocytes [#/volume] in Blood by Automated count 3.03 10*6/uL 4.6- 6.1 L [facility] Hemoglobin [Mass/volume] in Blood 10.0 g/dL 13.5-18 L [facility] Hematocrit [Volume Fraction] of Blood by Automated count 30.0 % 4 1-53 L [facility] Erythrocyte mean corpuscular volume [Entitic volume] by Auto mated count 99.0 fL 80-96 H [facility] Erythrocyte mean corpuscular hemoglobin [Entitic mass] by Automated count 33.0 pg 27-33 [facility] Erythrocyte mean corpuscular hemoglobin concentration [Mass/volume] by Automated count 33.4 g/dL 32.0-36.0 [facility] E[facility] distribution width [Ratio] by Automated count 15.6 % 11.5-14.5 [facility] Platelets [#/volume] in Blood by Automated count 238 10*3/uL 150-400 [facility] Differential cell count method - Blood [facility] Neutrophils/100 leukocytes in Blood by Automated count 64 % [facility] Lymphocytes/100 leukocytes in Blood by Automated count 17 % [facility] Monocytes/100 leukocytes in Blood by Automated count 12 % [facility] Eosinophils/100 leukocytes in Blood by Automated count 6 % [facility] Neutrophils [#/volume] in Blood by Automated count 7.10 10*3/uL 1.8-7 .0 H [facility] Lymphocytes [#/volume] in Blood by Automated count 1.89 10*3/uL 1.2-4 .0 [facility] Monocytes [#/volume] in Blood by Automated count 1.33 10*3/uL 0-0.8 H [facility] Eosinophils [#/volume] in Blood by Automated count 0.67 10*3/uL 0-0.5 H [facility] Band form neutrophils/100 leukocytes in Blood by Manual count 1 % [facility] Band form neutrophils [#/volume] in Blood by Manual count 0.11 10*3 /uL 0-0.6 [facility] Anisocytosis [Presence] in Blood by Light microscopy [facility] Poikilocytosis [Presence] in Blood by Light microscopy [facility] ID Date Data Source [id number] 10/16/2020 08:51:52 PM [facility] Name Value Range Interpretation Code Description Data Jazmín rce(s) Supporting Document(s) Glucose [Mass/volume] in Capillary blood by Glucometer 167 mg/dL 70- 140 [facility] ID Date Data Source [id number] 10/16/2020 04:36:42 PM [facility] Name Value Range Interpretation Code Description Data Jazmín rce(s) Supporting Document(s) Glucose [Mass/volume] in Capillary blood by Glucometer 142 mg/dL 70- 140 [facility] ID Date Data Source [id number] 10/16/2020 02:11:58 PM [facility] XR CHEST FRONTAL ONLY [id number] RESULTI nterpreted by:TANO HarperROCEDURE INFORMATION: Exam: XR Chest Exam date and time: 10/16/2020 11:27 AM Age: 75 years old Clinical indication: Biliary acute pancreatitis without necrosis or infection; Chest pain; Type not specified; Additional info: ? Pulmonary edema TECHNIQUE: Imaging protocol: XR of the chest Views: 1 view. COMPARISON: CR XR CHEST FRONTAL ONLY [id number] PORTABLE 10/14/2020 10:22 AM FINDINGS: Lungs: Unremarkable. [...] rce(s) Supporting Document(s) ID Date Data Source [id number] 10/16/2020 12:18:15 PM [facility] Name Value Range Interpretation Code Description Data Jazmín rce(s) Supporting Document(s) Glucose [Mass/volume] in Capillary blood by Glucometer 212 mg/dL 70- 140 [facility] ID Date Data Source [id number] 10/16/2020 08:25:53 AM [facility] Name Value Range Interpretation Code Description Data Jazmín rce(s) Supporting Document(s) Glucose [Mass/volume] in Capillary blood by Glucometer 145 mg/dL 70- 140 [facility] ID Date Data Source [id number] 10/16/2020 04:41:55 AM [facility] Name Value Range Interpretation Code Description Data Jazmín rce(s) Supporting Document(s) Bicarbonate [Moles/volume] in Serum 22 mmol/L 22-29 [facility] Chloride [Moles/volume] in Serum or Plasma 100 mmol/L 98-107 [facility] Creatinine [Mass/volume] in Serum or Plasma 2.79 mg/dL 0.70-1.20 H [facility] Glucose [Mass/volume] in Serum or Plasma 152 mg/dL 70-140 [facility] Potassium [Moles/volume] in Serum or Plasma 3.7 mmol/L 3.4-5.1 [facility] Sodium [Moles/volume] in Serum or Plasma 135 mmol/L 136-145 L [facility] Urea nitrogen [Mass/volume] in Serum or Plasma 50 mg/dL 8-23 H [facility] Anion gap 3 in Serum or Plasma 14 mmol/L 8-15 [facility] Osmolality of Serum or Plasma by calculation 296 mosm/kg 275-300 [facility] Creatinine/Urea nitrogen [Mass Ratio] in Serum or Plasma 18 [facility] Calcium [Mass/volume] in Serum or Plasma 8.6 mg/dL 8.8-10.2 L [facility] Glomerular filtration rate/1.73 sq M pre dicted among non-blacks [Volume Rate/Area] in Serum or Plasma by Creatinine-based formula (MDRD) 21 mL/min/1.73m2 >60 L [facility] Glomerular filtration rate/1.73 sq M pre dicted among blacks [Volume Rate/Area] in Serum or Plasma by Creatinine-based formula (MDRD) 24 mL/min/1.73m2 >60 L [facility] ID Date Data Source [id number] 10/16/2020 04:41:55 AM [facility] Name Value Range Interpretation Code Description Data Jazmín rce(s) Supporting Document(s) Magnesium [Mass/volume] in Serum or Plasma 1.9 mg/dL 1.6-2.4 [facility] ID Date Data Source [id number] 10/15/2020 09:16:40 PM [facility] Name Value Range Interpretation Code Description Data Jazmín rce(s) Supporting Document(s) Glucose [Mass/volume] in Capillary blood by Glucometer 238 mg/dL 70- 140 [facility] ID Date Data Source [id number] 10/15/2020 08:50:14 PM [facility] Value Range Interpretation Code Description Data Jazmín rce(s) Supporting Document(s) [facility] WOSLJt0hRtGSKnKv86/WZEtaAXPuj4FsBBnzXWf4STnyBSPxQ7CeICA6uC1oNEU7ABpAIyIlXvHlLhJ6 lbm [file] ICAgICAgICAgICAgICAgICAgICAgICAgICAgICAgICAgICAgICAgICAgICAgICAgICAgICAgICAgICAg ICAgICAgICAgICANCiAgICAgICAgICAgICAgICAgIC AgICAgICAgICAgICAgICAgICAgICAgICAgICAgICAgICAgICAgICAgICAgICAgICAgICAgICAgICAgIC AgICAgICAgICAgICAgICAgICAgICANCiAgICAgICAgICAgICAgICAgICAgICAgICAgICAgICAgICAgIC AgICAgICAgICAgICAgICAgICAgICAgICAgICAgICAg ICAgICAgICAgICAgICAgICAgICAgICAgICAgICAgICANCiAgICAgICAgICAgICAgICAgICAgICAgICAg ICAgICAgICAgICAgICAgICAgICAgICAgICAgICAgICAgICAgICAgICAgICAgICAgICAgICAgICAgICAg ICAgICAgICAgICAgICANCiAgICAgICAgICAgICAgIC AgICAgICAgICAgICAgICAgICAgICAgICAgICAgICAgICAgICAgICAgICAgICAgICAgICAgICAgICAgIC AgICAgICAgICAgICAgICAgICAgICAgICANCiAgICAgICAgICAgICAgICAgICAgICAgICAgICAgICAgIC AgICAgICAgICAgICAgICAgICAgICAgICAgICAgICAg ICAgICAgICAgICAgICAgICAgICAgICAgICAgICAgICAgICANCiAgICAgICAgICAgICAgICAgICAgICAg ICAgICAgICAgICAgICAgICAgICAgICAgICAgICAgICAgICAgICAgICAgICAgICAgICAgICAgICAgICAg ICAgICAgICAgICAgICAgICANCiAgICAgICAgICAgIC AgICAgICAgICAgICAgICAgICAgICAgICAgICAgICAgICAgICAgICAgICAgICAgICAgICAgICAgICAgIC AgICAgICAgICAgICAgICAgICAgICAgICAgICANCiAgICAgICAgICAgICAgICAgICAgICAgICAgICAgIC AgICAgICAgICAgICAgICAgICAgICAgICAgICAgICAg ICAgICAgICAgICAgICAgICAgICAgICAgICAgICAgICAgICAgICANCiAgICAgICAgICAgICAgICAgICAg ICAgICAgICAgICAgICAgICAgICAgICAgICAgICAgICAgICAgICAgICAgICAgICAgICAgICAgICAgICAg ICAgICAgICAgICAgICAgICAgICANCjw/cWHhW2mbjW VgxwE3S6jtSc3YOd7DTC4fu2DrTYYwUFzzucFoBivCMoEzOZPvVrvFKdq5QWzeXP4McSMgI8JlW3GzCJ pjEZ9DBNTdPMPkeEQpGXMzMCEnEzW2HPKqYVciSE4IyUOiJIrcFZQoDTRxEqExOASzIEVaKCCdJCWmAR ZMSYQoQZSiQuUxMXwgUW0Hi9TkpZY2CMc+Fh5HIV9t r6LoIDbyQaMlFK1lkb2BFGnKEyTsE2DtcfE6QFG8TQSqWb8OXNXtIYUlbKUjFTDwLNTBKbYjX9InoH82 IDENCj4+FPnnpbCvFgpDWkT8DFWuq4YuSPe6WD4OZJEeYKj3cTNaC97dq1PhsFRgKdhmYCb7O0ehbJiu QkZoJHZ0JLDkME8PTPX9XCRpLC6tUBFgBTO6DcS4PC XAWJ5ECMUgPFWydAHjSNSxJBBDUZ3JHIgeJPS6BAKmglFbgZClSChfHO9KIMQxxxNgSeSsTQIXQWu+Pg 1EPD9om5VeMDuyCKXlBY6brq4YHPsHEfJeG1O0lLIuC9V6EWhkHp2GGFRjDPIxDxSmEGAYBCajMM6HLH 2juhW4LU0LwYXsAMSqQARsmCEkNLk0G59yyTBwWYnw JO1LJKZ+Shawn+Ri0UMQVwFQLvJAIqXwEaPKWVUiKtC2ElB3HQf9NnK4ZkSK05fFhumhJxFBxzDX5CIH8q EVSpGTGWCT4VwMCkkP8qnxPdJiRgIZUFTjXpW61xaRGkVVPzHKHvJJSaKk0UYIMmM3XcyvXskDfgdmAs CMIpCIOULN8MXIgkqaCcgLFakAuxQL55zUffRC9JZu 5UAhBzUN3rqr8YrXGeMf1FGUCgOl4ZVZAhSCQdFDDuWGZ1ELVlDzHzHZkiZAOvLOIuBSR2LKUsECJgQW 7UYkUmSPBuHpH9AxCfURKfKRSqme3LCNHtDMGbVgKpEZZyRFRlLBPiBRvwYYTcHGWiDJT6WELsUOUbFG 1PRzCgLSKaGNNrOAZzQCWuHCDwgw6JSVJkGOGkQeJm RETgYIPqNSKdBTyzXOAgMXV0CHUgUQAxEIFnMZ4UPwXgNSAxASZ1RjUcAZWqVQNjwj4GENIaDFQrHUns YgQqASHuIFRzPPgkJXTwUNP3FVB4OMBmXJBoRA8QEtRqAHSyRONpAklhFTIiXTKzie8WNCBnMNYlUxPg WoCvGOYdATFiNOmdUNGuKBBkSUq6KPUhKIUrFM4ZHa XgSKQhJTBeQLJqUMIiRLVllx2ODSWnCRKiRKZ7OPEyONKdVTGjJGicJQVzZEY0DwClBAVrXGDfPC7VUa OiZBTnRGP5EZGjGWQtLWXytr0BWOWdXGTbYhWzZFGvUARxLUBuMKnfVDKrOBC7OtH3KOFwJUUiYW9AVc FnETLpXWW0PHMeEMDiKPDsqn9YLJJxXWJwWuc5ICHa JIHaBCWeLVxbCGTkFGE9CYVzBCYtZTMsWE7UOuPaVEOmFPokQcCwBLIbEJNiix3ORFMcADDyKZYkCCRt PIIcBIMhYEmhOYSfCCQ9XRG1NOKnXTBxNW0SUlJqRQDrXzQwYWVrVXIbWXMmbk8NQEDiIKFiAGD3NEDb KEFnDSIzSIhtAPSoJDRpURPfHPGiYKAnVI2EUhJnKW EmQoTtSjRxQTNnXBTehw7OHQNqFCJcTLJ4UdVmABMeQVMcBXuoROTqKSKrChAfXVLtOVWoRO6IRiLgWA MvFrLgQqWoBPGyADVewi1BIKEoLTUcMqMlJYSfYEHbFVGhQLsqSGTpLOSsUrA9FXKcRVQuDY5GAwFqDF GiLxA1LOVmUHAlABTwjl1UdNKrlOyeqw4BKFwEDx7V mLfyVJE9IZdhVf6ssIViJVDnGWJFCq4JuwGbRASeXBSXXWzrCHEfSBO4IoY5ORMkYLC0IHqoUxQhKLa3 SzfgWcT7DSDmXuWeWjU0IDJhQta3XKKeYOroDiCxGNKhBYBmYpMuNBWoC6EcRxL+QO4hGLc+Eg9Yw3Wo loI9juMyTYasHSK1ZW8HCJMWQ1YCLp== ID Date Data Source [id number] 10/15/2020 05:31:15 PM [facility] HEPATOBILIARY IMAGING [facility] [id number] RESULTInterpreted by:Rancho Dacosta MBBCHISTORY: Cholelithiasis.TECHNIQUE: Following the intravenous injection of 7.43 [...] rce(s) Supporting Document(s) ID Date Data Source [id number] 10/15/2020 04:40:01 PM [facility] Name Value Range Interpretation Code Description Data Jazmín rce(s) Supporting Document(s) Glucose [Mass/volume] in Capillary blood by Glucometer 160 mg/dL 70- 140 [facility] ID Date Data Source [id number] 10/15/2020 12:21:59 PM [facility] Value Range Interpretation Code Description Data Jazmín rce(s) Supporting Document(s) Glucose [Mass/volume] in Capillary blood by Glucometer 179 mg/dL 70- 140 [facility] ID Date Data Source [id number] 10/15/2020 11:09:58 AM [facility] Value Range Interpretation Code Description Data Jazmín rce(s) Supporting Document(s) EKG [facility] JDZDJw7zDrXYBdGws4UjRvLuHIExVL5wjhy5T7C0uTVjT3RxmFWbm2upS5LpW6YyOYDiYKDKXC4UaEBg jb2 [file] Y9u0tjgr8eHwetnBqmx6ZdyramctpCN+Mc3pUidxdC g1/h9/69E+Wr5/WW8rS/6rC/gbteZ9IwbQsg4QR3WpcT0jyoWys2qIviH8S+pHxKuX+myft0ryFE8Mew 1IRY8c2iLQ+ZlvilZq3m4S4s1xJf1Vz+F/or1D/9L5Iv1L6Aq3CWSC6FQtQ7+vW1TzZ1cV2x37lx1qxj nWFZjMWsHxOi4RvmKlboxDlqw1WmP7/fAgchUHS1Wv +I188Nu4Vu5naDw7EvSV+5P+zqV3lvHl1m2QIiwLnRikKjt/la2q4z0sxI+9Hx8h5r66E/d+lTNwlb9r sxJNsiXNe07abxDwbhUlbu6wtRvMn3AxXf985O2B+5Y0Ve9/eM9wf309l4vlwFuQsJ1TE0mA6Lh/2Vc7 RInpV9KWyErAGiwK/YdF9Ka022ZYn/4vW+9mg36PE5 +TGkt62klVFv7G/3jpAzGlkJrF5bb8c5fr0JVHzflq07Im85S/RV11+xTlx/hb2wO0/Fxzeg9qh02rY0 L/Sv9ngEMj32eLapoXg/cNw7y3s25EhuMmC4U7gkMv2i6UediaMwKDIghSJ8SXCtgo8eqXtgk3mvgfxR 05C9918pc44xYK05UqGjZ/sD5L2RFBSoHbG9ahRxSM kXxbBphl8dpRMgRoQq43oBZJ8L2TBP+zv3kOD+oq9aoAen/bZUo81mnYHWdYMzJ+LOETyncN+IxxyNa+ y3De913IQ1+BW+OijT7t01Ds3S+CWHbtAfd4Y4IQ/Yqa/c4LeY7Sr/0gH4vIFq+psG4Xl05rSw6aeEDA dlcx4sB+auto headlight mechanic/ZXG+Hub66olgU25SScgow++4Xe9sez [file] d6b53ki4V8097sMuw2+9/Ezaxi7u7l/15z1hX9+9njv7btddv7r8/aYgR479/l2Ie90kw3pkkh/2/u0/ ajTq9fLn621+9VmDy55/dwn5q7cEhzm94W//G/8pp6 pfXr37/MXti15cnffn0aAx806+/9WrL99+fPvmw8//5VG7/P70a4u8m//pb/ytqkp1k424dCq0U0+//u qbV+/ffI4Pe/dm5wvlTYlSQ3767aO0ioPQS/5Cw5Pxg4//h1mpd5yrKgJawTjlTv/u/NSir43u8ws/+f jFVz+/j0eeve/Wl9j9dktkpZL0T//96n38pl7/VPOj 9FERH9+8f/v1+3ad17j9/N79zlzM9t0i1BF0e9wqVn108vXx3/+NP92j8/7T6z/+9G+//9OPP/zu5X/8 18vr//j+p3//w/e//4eXz/70++9/zsxEh5zlQD/r37/88aeX+sv2S6+JCw500ih2xoh05n12E2gwEd/x x1/+WZ+1Q6v2ZU/4x+7Ct0Z68BD65F1S7F9kYtd/Xv 84BfXcQHlr+/AyczQDkihsMm01vUQ9tLwil06+jNwX+9fnbKDy45r//NsPf/bN98RyBq///GHKV7571f LZm9f//jpqDeeURwf1vMGA4q+ckoQh3N/uhJ/o6TRylDM5rK+CxbbWUXsawd/98NNf/vHlT9//5Yen2z +IwAvCAt0/+lFbyP+a2H/7+b0D+ub9y+9/+ssPf/pf 3//ws6t18jW65xo872dd+vntA/iG7t1lhurix2e//R9/+te5Gocuf+2NOvavHl6+8l8+/lab+fnoS74g +SWvUd2kvShAqLO8bA/yNtH4o7fpBkqzjB/2ldjPq+1A33zy/pOPL9//7x/+/Guz9cHoaI0111/ffXJP nY+h91iv/utP//r3P/j2iQKF2//hqXX3E/r6+//87f d/fnS0n/0/KnrM3/8MPFX0/o9//PHTxwz+sx/F70x8u68+5utsdijwrxYUH5/47X/04RbtXh8e08qYk7 7zZz/39KM23K//8uhSv/a7jOrXTwmkX+v42z7eA7z7y6/J42584YnoIkpn5++9pv//d1Ho4AfhebE69n t//+WwdAye3408zLl0kgGBbLNxdv1azh+8eVzfU+HL m88/fntR9LEA6Y/ff/7m/ES63Vp2Akr9jxM35bejfrf67kgel8NK8KIm/y/0isoZHaEsOAS9qhSriMsi lvHuCtuOHAgnNELuVns5ZK8CpDZgLLZdW7C9FFIcti1gNQKcNCLkxLCwUuRuYYLMGS8UgIOoZR1LMKc8 JZLnJCGgGkVsIHDdjtF1YGOaNCFyVLHtF0OftiTtvG AyIDAgUj4+QB5cz4FqRlMnYYKmSiw2AU2WnHLvFG8YjKOuiS5mksPrL947loByDHIjNanwg2DfUGhdWP LSVY1SOEI2DVR2EPGpIo9+XM3dx7RpZjKjPZQxMqo3MB8ZlNTsk1CxCB8KV7KnYYLuDHEIFRW3t6VoJP QgeaadfjeiL7StQFW2kZ9tRON0LAZwYHmkRVHcRLDo SQAtYNPpYQzcPIZgRYQkLHRhYDSnMOt6yQCeZH3PA5CrASGwYTXAISJkgnYiAl3yOGARUFpSFuWjYFIO E6VNQBDiIlj8VHLcXX0EfIXpBLT7LAxGCPMBRByYNYokFtBlv8T0TGUuE2LmYVIklfKsHMRQUXgsCogw EH7fmEngkblzP9VdlACzJYKOVVBhFKHsLFIcYLLrX6 Izm4Z2M6UnKDdBEUBITAcJYQbbWsZ3b82snwTSHVHePFRxKS3+ER3dz9KxKx6RDXJjCV2ejby1CV0LnT ZoOZ7NEUueraBoS0yufpTyExRxDWOVMK0eP7JijY14YBP+ItUfKK3ydtq9swNiZxLrLJQtUIYeSBPnQK emDTEkGGBqSVLnOXK2XFO7XPOwMjAjMIGyZzS0ZXPs OYLlFPMckqGHOKYsKZO7NKXqSTDhSZMkXNPfFBgjBHLlFDf2Kgo8PTUcLKLcVT8uCpCiZSIuOSMxXHNy QzG2PoTeVcLWIJLmLQOeGNJpVdXlYABxHJIkGXerSVXtOQGlBDk4SPLgWZAcOH3pBeVjAINmNCJiUZWl SXTwKMVccpQAWYUqXUKvWSL1AGLmYDLzKWIlHRdjGC KdPPOzKLO4ZTMbYAZeOL2dXkUkBUUxJJW8GvDzAVNgLZMzobPGFBJzATBuBJT5PGJjIKXlUQUkIAvrFQ CaOLKeBnV4UDYgSYCbOY4eOpEzISNpGCZ6JYOaLATtFTMylwYNOPBoBASnLTd8GkQtVSWwFYHgAKkuNJ ZzBGMgXDbdNYXkMEJfWB2jTtTaMCKuBGHjNYNbUGTe YFZiwwBANWElNPOyJSE4QvMjUMEfNHLpHVhwRNSgNNDgULW7QWRvDMZfDU0dBtChUQWrIcRoHQTqEAXf NHWnsmCCPWGoJKRhFUJnEGBqYPBoACIwRRssPAGqSYMmUoZ0FLMqEPQrTW7cYaNfAVZdNAY6SIMwKJTc QNQesbKRGAFqOIZyNAZrHTY1MNAlNRMbCMp5roJpzO ChHea4Nv0OoKmjZFL4Uu5PiiRjEKOvXNUYEg1Xu975FJYbDMCIBcc+ZuoyrDXnrAtvEIHBOyK3JTWODX VFT0Y= ID Date Data Source [id number] 10/15/2020 08:19:27 AM [facility] Name Value Range Interpretation Code Description Data Jazmín rce(s) Supporting Document(s) Glucose [Mass/volume] in Capillary blood by Glucometer 145 mg/dL 70- 140 [facility] ID Date Data Source [id number] 10/15/2020 04:23:51 AM [facility] Name Value Range Interpretation Code Description Data Jazmín rce(s) Supporting Document(s) Leukocytes [#/volume] in Blood by Automated count 9.5 10*3/uL 4-10 [facility] Erythrocytes [#/volume] in Blood by Automated count 2.82 10*6/uL 4.6- 6.1 L [facility] Hemoglobin [Mass/volume] in Blood 9.5 g/dL 13.5-18 L [facility] Hematocrit [Volume Fraction] of Blood by Automated count 28.2 % 4 1-53 L [facility] Erythrocyte mean corpuscular volume [Entitic volume] b y Automated count 100.0 fL 80-96 [facility] Erythrocyte mean corpuscular hemoglobin [Entitic mass] by Automated count 33.7 pg 27-33 [facility] Erythrocyte mean corpuscular hemoglobin concentration [Mass/volume] by Automated count 33.7 g/dL 32.0-36.0 [facility] E[facility]th[facility] distribution width [Ratio] by Automated count 15.6 % 11.5-14.5 [facility] Platelets [#/volume] in Blood by Automated count 207 10*3/uL 150-400 [facility] Differential cell count method - Blood [facility] Neutrophils/100 leukocytes in Blood by Automated count 80 % [facility] Lymphocytes/100 leukocytes in Blood by Automated count 10 % [facility] Monocytes/100 leukocytes in Blood by Automated count 7 % [facility] Eosinophils/100 leukocytes in Blood by Automated count 2 % [facility] Basophils/100 leukocytes in Blood by Automated count 1 % [facility] Neutrophils [#/volume] in Blood by Automated count 7.61 10*3/uL 1.8-7 .0 [facility] Lymphocytes [#/volume] in Blood by Automated count 0.98 10*3/uL 1.2-4 .0 L [facility] Monocytes [#/volume] in Blood by Automated count 0.63 10*3/uL 0-0.8 [facility] Eosinophils [#/volume] in Blood by Automated count 0.17 10*3/uL 0-0.5 [facility] Basophils [#/volume] in Blood by Automated count 0.10 10*3/uL 0-0.2 [facility] Nucleated erythrocytes/100 leukocytes [Ratio] in Blood by Automated count 0 /100{WBCs} 0-0 [facility] ID Date Data Source [id number] 10/15/2020 05:06:00 AM [facility] Name Value Range Interpretation Code Description Data Jazmín rce(s) Supporting Document(s) Albumin [Mass/volume] in Serum or Plasma by Bromocresol green (BCG) dye binding method 3.2 g/dL 3.5-5.2 [facility] Bilirubin.total [Mass/volume] in Serum or Plasma 2.3 mg/dL <1.2 [facility] Bilirubin.direct [Mass/volume] in Serum or Plasma 1.3 mg/dL <0.3 [facility] Alkaline phosphatase [Enzymatic activity/volume] in Serum or Plasma 186 U/L 40-129 [facility] Aspartate aminotransferase [Enzymatic activity/volume] in Serum or Plasma 34 U/L <40 [facility] Alanine aminotransferase [Enzymatic activity/volume] in Seru m or Plasma 99 U/L <41 [facility] Protein [Mass/volume] in Serum or Plasma 6.3 g/dL 6.4-8.3 [facility] ID Date Data Source [id number] 10/15/2020 05:06:00 AM [facility] Name Value Range Interpretation Code Description Data Jazmín rce(s) Supporting Document(s) Lipase [Enzymatic activity/volume] in Serum or Plasma 66 U/L 13-6 0 [facility] ID Date Data Source [id number] 10/15/2020 05:06:00 AM [facility] Value Range Interpretation Code Description Data Jazmín rce(s) Supporting Document(s) Bicarbonate [Moles/volume] in Serum 20 mmol/L 22-29 [facility] Chloride [Moles/volume] in Serum or Plasma 102 mmol/L 98-107 [facility] Creatinine [Mass/volume] in Serum or Plasma 2.61 mg/dL 0.70-1.20 [facility] Icteric Glucose [Mass/volume] in Serum or Plasma 152 mg/dL 70-140 [facility] Potassium [Moles/volume] in Serum or Plasma 4.2 mmol/L 3.4-5.1 [facility] Sodium [Moles/volume] in Serum or Plasma 136 mmol/L 136-145 [facility] Urea nitrogen [Mass/volume] in Serum or Plasma 51 mg/dL 8-23 [facility] Anion gap 3 in Serum or Plasma 15 mmol/L 8-15 [facility] Osmolality of Serum or Plasma by calculation 299 mosm/kg 275-300 [facility] Creatinine/Urea nitrogen [Mass Ratio] in Serum or Plasma 19 [facility] Calcium [Mass/volume] in Serum or Plasma 8.7 mg/dL 8.8-10.2 L [facility] Glomerular filtration rate/1.73 sq M pre dicted among non-blacks [Volume Rate/Area] in Serum or Plasma by Creatinine-based formula (MDRD) 23 mL/min/1.73m2 >60 L [facility] Glomerular filtration rate/1.73 sq M pre dicted among blacks [Volume Rate/Area] in Serum or Plasma by Creatinine-based formula (MDRD) 26 mL/min/1.73m2 >60 L [facility] ID Date Data Source [id number] 10/15/2020 04:58:50 AM [facility] Value Range Interpretation Code Description Data Jazmín rce(s) Supporting Document(s) Magnesium [Mass/volume] in Serum or Plasma 1.6 mg/dL 1.6-2.4 [facility] ID Date Data Source [id number] 10/15/2020 04:58:50 AM [facility] Value Range Interpretation Code Description Data Jazmín rce(s) Supporting Document(s) Natriuretic peptide.B prohormone N-Terminal [Mass/volu me] in Serum or Plasma 02282 pg/mL <125 [facility] ID Date Data Source [id number] 10/15/2020 04:58:50 AM [facility] Value Range Interpretation Code Description Data Jazmín rce(s) Supporting Document(s) Phosphate [Mass/volume] in Serum or Plasma 3.1 mg/dL 2.5-4.5 [facility] ID Date Data Source [id number] 10/15/2020 04:58:50 AM [facility] Value Range Interpretation Code Description Data Jazmín rce(s) Supporting Document(s) Troponin T.cardiac [Mass/volume] in Serum or Plasma 0.03 ng/mL <0.01 H [facility] ID Date Data Source [id number] 10/14/2020 09:06:24 PM [facility] Value Range Interpretation Code Description Data Jazmín rce(s) Supporting Document(s) Glucose [Mass/volume] in Capillary blood by Glucometer 174 mg/dL 70- 140 [facility] ID Date Data Source [id number] 10/14/2020 04:50:34 PM [facility] Value Range Interpretation Code Description Data Jazmín rce(s) Supporting Document(s) Glucose [Mass/volume] in Capillary blood by Glucometer 136 mg/dL 70- 140 [facility] ID Date Data Source [id number] 10/14/2020 01:46:24 PM [facility] Value Range Interpretation Code Description Data Jazmín rce(s) Supporting Document(s) Glucose [Mass/volume] in Capillary blood by Glucometer 138 mg/dL 70- 140 [facility] ID Date Data Source [id number] 10/14/2020 01:41:02 PM [facility] IR PERCUTANEOUS CHOLECYSTOSTOMY TUBE INS ERTIONFINAL [...] pigtail cholecystostomy drain using a single step [id number] technique with the locking loop coiled in [...] rce(s) Supporting Document(s) ID Date Data Source [id number] 10/15/2020 10:24:21 AM [facility] Cmnt XXX-Imp : BILE CULTUREMicro organism XXX Cult : 1+Citrobacter freundii complexATTENTION This species is always resistant to ampicillin, amoxicillin-clavulanic acid, ampicillin-sulbactam, first-generation cephalosporins, cephamycins, and cefuroxime. Name Value Range Interpretation Code Description Data Jazmín rce(s) Supporting Document(s) ID Date Data Source [id number] 10/15/2020 07:15:37 AM [facility] Cmnt XXX-Imp : NoneGram Stn XXX : Test Not Performed.Entry ErrorMicroorganism XXX Cult : Test Not Performed.Entry Error Name Value Range Interpretation Code Description Data Jazmín rce(s) Supporting Document(s) ID Date Data Source [id number] 10/14/2020 01:03:44 PM [facility] Name Value Range Interpretation Code Description Data Jazmín rce(s) Supporting Document(s) Glucose [Mass/volume] in Capillary blood by Glucometer 135 mg/dL 70- 140 [facility] ID Date Data Source [id number] 10/14/2020 11:01:57 AM [facility] XR CHEST FRONTAL ONLY [id number] RESULTI nterpreted by:Prudence Mark MDIndication: History of [...] rce(s) Supporting Document(s) ID Date Data Source [id number] 10/14/2020 09:21:25 AM [facility] Name Value Range Interpretation Code Description Data Jazmín rce(s) Supporting Document(s) Glucose [Mass/volume] in Capillary blood by Glucometer 141 mg/dL 70- 140 H [facility] ID Date Data Source [id number] 10/14/2020 05:29:26 AM [facility] Name Value Range Interpretation Code Description Data Jazmín rce(s) Supporting Document(s) Glucose [Mass/volume] in Capillary blood by Glucometer 133 mg/dL 70- 140 [facility] ID Date Data Source [id number] 10/14/2020 04:08:24 AM [facility] Name Value Range Interpretation Code Description Data Jazmín rce(s) Supporting Document(s) Leukocytes [#/volume] in Blood by Automated count 7.9 10*3/uL 4-10 [facility] Erythrocytes [#/volume] in Blood by Automated count 2.48 10*6/uL 4.6- 6.1 [facility] Hemoglobin [Mass/volume] in Blood 8.4 g/dL 13.5-18 [facility] Hematocrit [Volume Fraction] of Blood by Automated count 24.7 % 4 1-53 [facility] Erythrocyte mean corpuscular volume [Entitic volume] by Auto mated count 99.5 fL 80-96 [facility] Erythrocyte mean corpuscular hemoglobin [Entitic mass] by Automated count 33.9 pg 27-33 [facility] Erythrocyte mean corpuscular hemoglobin concentration [Mass/volume] by Automated count 34.1 g/dL 32.0-36.0 [facility] E[facility]th[facility] distribution width [Ratio] by Automated count 16.4 % 11.5-14.5 [facility] Platelets [#/volume] in Blood by Automated count 184 10*3/uL 150-400 [facility] Differential cell count method - Blood [facility] Neutrophils/100 leukocytes in Blood by Automated count 75 % [facility] Lymphocytes/100 leukocytes in Blood by Automated count 12 % [facility] Monocytes/100 leukocytes in Blood by Automated count 8 % [facility] Eosinophils/100 leukocytes in Blood by Automated count 4 % [facility] Basophils/100 leukocytes in Blood by Automated count 1 % [facility] Neutrophils [#/volume] in Blood by Automated count 5.92 10*3/uL 1.8-7 .0 [facility] Lymphocytes [#/volume] in Blood by Automated count 0.96 10*3/uL 1.2-4 .0 [facility] Monocytes [#/volume] in Blood by Automated count 0.67 10*3/uL 0-0.8 [facility] Eosinophils [#/volume] in Blood by Automated count 0.30 10*3/uL 0-0.5 [facility] Basophils [#/volume] in Blood by Automated count 0.10 10*3/uL 0-0.2 [facility] Nucleated erythrocytes/100 leukocytes [Ratio] in Blood by Automated count 0 /100{WBCs} 0-0 [facility] ID Date Data Source [id number] 10/14/2020 04:21:32 AM [facility] Name Value Range Interpretation Code Description Data Jazmín rce(s) Supporting Document(s) Prothrombin time (PT) 15.9 s 12.5-14.9 H [facility] INR in Platelet poor plasma by Coagulation assay [address] [place] [address] Routine intensity oral anticoagulation I NR is typically 2.0-3.0. Target INR must be clinically individualized. ID Date Data Source [id number] 10/14/2020 04:45:03 AM [facility] Value Range Interpretation Code Description Data Jazmín rce(s) Supporting Document(s) Albumin [Mass/volume] in Serum or Plasma by Bromocresol green (BCG) dye binding method 2.9 g/dL 3.5-5.2 [facility] Bilirubin.total [Mass/volume] in Serum or Plasma 2.2 mg/dL <1.2 H [facility] Confirmed Bilirubin.direct [Mass/volume] in Serum or Plasma 1.7 mg/dL <0.3 H [facility] Alkaline phosphatase [Enzymatic activity/volume] in Serum or Plasma 172 U/L 40-129 H [facility] Aspartate aminotransferase [Enzymatic activity/volume] in Serum or Plasma 33 U/L <40 [facility] Alanine aminotransferase [Enzymatic activity/volume] in Seru m or Plasma 115 U/L <41 H [facility] Protein [Mass/volume] in Serum or Plasma 5.7 g/dL 6.4-8.3 L [facility] ID Date Data Source [id number] 10/14/2020 04:45:03 AM [facility] Value Range Interpretation Code Description Data Jazmín rce(s) Supporting Document(s) Lipase [Enzymatic activity/volume] in Serum or Plasma 43 U/L 13-6 0 [facility] ID Date Data Source [id number] 10/14/2020 04:45:03 AM [facility] Value Range Interpretation Code Description Data Jazmín rce(s) Supporting Document(s) Bicarbonate [Moles/volume] in Serum 18 mmol/L 22-29 L [facility] Chloride [Moles/volume] in Serum or Plasma 105 mmol/L 98-107 [facility] Creatinine [Mass/volume] in Serum or Plasma 2.80 mg/dL 0.70-1.20 H [facility] Icteric Glucose [Mass/volume] in Serum or Plasma 130 mg/dL 70-140 [facility] Potassium [Moles/volume] in Serum or Plasma 4.4 mmol/L 3.4-5.1 [facility] Sodium [Moles/volume] in Serum or Plasma 137 mmol/L 136-145 [facility] Urea nitrogen [Mass/volume] in Serum or Plasma 57 mg/dL 8-23 H [facility] Anion gap 3 in Serum or Plasma 14 mmol/L 8-15 [facility] Osmolality of Serum or Plasma by calculation 301 mosm/kg 275-300 H [facility] Creatinine/Urea nitrogen [Mass Ratio] in Serum or Plasma 20 [facility] Calcium [Mass/volume] in Serum or Plasma 8.7 mg/dL 8.8-10.2 [facility] Glomerular filtration rate/1.73 sq M pre dicted among non-blacks [Volume Rate/Area] in Serum or Plasma by Creatinine-based formula (MDRD) 21 mL/min/1.73m2 >60 L [facility] Glomerular filtration rate/1.73 sq M pre dicted among blacks [Volume Rate/Area] in Serum or Plasma by Creatinine-based formula (MDRD) 24 mL/min/1.73m2 >60 L [facility] ID Date Data Source [id number] 10/14/2020 12:39:52 AM [facility] Value Range Interpretation Code Description Data Jazmín rce(s) Supporting Document(s) Glucose [Mass/volume] in Capillary blood by Glucometer 124 mg/dL 70- 140 [facility] ID Date Data Source [id number] 10/13/2020 08:07:32 PM EST [facility] Value Range Interpretation Code Description Data Jazmín rce(s) Supporting Document(s) ED Provider Note [facility] UIDTEa6sBhBJYvWp12/ZYLnwFKWjo0HiJKtaCAk6JNzbOESoZ2WmZEQ1fM8sTZM0HGvDQeRlKqNrIlCt lbm [file] FO2wC6mX2+HL/NjYzvOhSrjhAV4ad0mDDUtUyaeYpEz4R5Kk0LJo1hKLpxgr+Dice Dealer/j1yCyNkUQqmVbxmt [file] C9UEV77pN6xRAFvBHZhD6ski8mtKyQl2lFqHnspa+Bghue7UA/PR7ukbNGlOeieHR4q/lycZ4+I++/Dice Dealer [file] N8JCQeBhx+AA9fXGr+Qw9Sq8QjmlY4oqHxIRo6NBR6IH5VSGDIQ0BHXc== ID Date Data Source [id number] 10/13/2020 06:04:12 PM [facility] MR BILIARY TREE MRCP [id number] RESULTIn terpreted by:TANO VegasROCEDURE INFORMATION: Exam: MR Abdomen Without Contrast Exam date and time: 10/13/2020 3:57 PM Age: 75 years old Clinical indication: Biliary acute pancreatitis without necrosis or infection; Abdominal pain; Epigastric; Additional info: Rule out choledocholithiasis; Cystic duct obstruction TECHNIQUE: Imaging protocol: MR of the abdomen without contrast. COMPARISON: US RENAL OR AORTA COMPLETE [id number] 10/12/2020 3:47 PM FINDINGS: Liver: The liver [...] Normal bile ducts. COMMENTS: Consistent with the [employer] [place] [employer]'s Incidental Findings Committee white [...] Date Data Source [id number] 10/13/2020 06:02:57 PM [facility] Name Value Range Interpretation Code Description Data Jazmín rce(s) Supporting Document(s) Glucose [Mass/volume] in Capillary blood by Glucometer 136 mg/dL 70- 140 [facility] ID Date Data Source [id number] 10/13/2020 02:04:03 PM [facility] Name Value Range Interpretation Code Description Data Jazmín rce(s) Supporting Document(s) Consultation [facility] ZIHHGj9vIeDPMySs34/WJBeuXMBwr7HaKYvwGQt6DUuhJMYbQ2GoQBJ2aI0cXKG5HHiFDwPlKpTjAlTr lbm [file] AgICAgICAgICAgICAgICAgICAgICAgICAgICAgICAgICAgICAgICAgICAgICAgICAgICAgICAgICAgIC AgICAgICAgICAgICAgDQogICAgICAgICAgICAgICAg ICAgICAgICAgICAgICAgICAgICAgICAgICAgICAgICAgICAgICAgICAgICAgICAgICAgICAgICAgICAg ICAgICAgICAgICAgICAgICAgICAgICAgDQogICAgICAgICAgICAgICAgICAgICAgICAgICAgICAgICAg ICAgICAgICAgICAgICAgICAgICAgICAgICAgICAgIC AgICAgICAgICAgICAgICAgICAgICAgICAgICAgICAgICAgDQogICAgICAgICAgICAgICAgICAgICAgIC AgICAgICAgICAgICAgICAgICAgICAgICAgICAgICAgICAgICAgICAgICAgICAgICAgICAgICAgICAgIC AgICAgICAgICAgICAgICAgDQogICAgICAgICAgICAg ICAgICAgICAgICAgICAgICAgICAgICAgICAgICAgICAgICAgICAgICAgICAgICAgICAgICAgICAgICAg ICAgICAgICAgICAgICAgICAgICAgICAgICAgDQogICAgICAgICAgICAgICAgICAgICAgICAgICAgICAg ICAgICAgICAgICAgICAgICAgICAgICAgICAgICAgIC AgICAgICAgICAgICAgICAgICAgICAgICAgICAgICAgICAgICAgDQogICAgICAgICAgICAgICAgICAgIC AgICAgICAgICAgICAgICAgICAgICAgICAgICAgICAgICAgICAgICAgICAgICAgICAgICAgICAgICAgIC AgICAgICAgICAgICAgICAgICAgDQogICAgICAgICAg ICAgICAgICAgICAgICAgICAgICAgICAgICAgICAgICAgICAgICAgICAgICAgICAgICAgICAgICAgICAg ICAgICAgICAgICAgICAgICAgICAgICAgICAgICAgDQogICAgICAgICAgICAgICAgICAgICAgICAgICAg ICAgICAgICAgICAgICAgICAgICAgICAgICAgICAgIC AgICAgICAgICAgICAgICAgICAgICAgICAgICAgICAgICAgICAgICAgDQogICAgICAgICAgICAgICAgIC AgICAgICAgICAgICAgICAgICAgICAgICAgICAgICAgICAgICAgICAgICAgICAgICAgICAgICAgICAgIC JeNFWgCQGyZUTlXUUtMKAbBEToCNUrUFm5W7fyJWNl UDUlYC5rGDc5Af9+WIeYOcGaXOB6tbYinP6NCF0vb1NmXYkpUDSbo6OkMIi6CX4JRLNoULfiDW2DBAzg xm2DELZnGADymQSAi1gyHsJvTBW2ZAAoRcngAI7AQIVzU3dnvfQnKVUmJTLSBHyhJIBNREhsUJNEWOAb CVAkFtGhMdUjWFNdGS6BKTGxU182qiSlFW8RDj3UMv CrLW8jwf8HChnmHNRrOxgQOxc6WLfrLU3GrUWusVYhDOSyKFJFBnClX0wqw7FsDvyzEDPSBUmtXE9Ha2 VudCAxDQo+Zc7CUY4ym0YjZJqkRNDcZW2hpx0GVLoBSqQmI7WmqZbtSUBoxeS4mOKcHMO4FBHfjYaoNC EzRUPpHPFyJBKNTrTRSTU7OMBuKv8sVEUbBFVvPrTz UPGRCT6QIDNqRNRsdARxUOJlCEJOKG0BZOqfNHT9PDCjmdUlrDRvDNvqKT9QCYLowmNbNfzmAFWZGEu+ Zh8JVX9wl6KgZMvbCCXzDE6iwa0ULEdSLzBlQ9B1sNIyY3J6MFprDf8PFTSiGMMgAxOuGQSNIVpnWR1R VH6zbvZ2SH7RsECxDAWgCTGwgEMzLDw2D35jeBDtGU wfXQ6TGAG+Shawn+Me4BHCYfLYVbXRKtGyQuTVPSWgWfE3YtA8WIv4XhR1OcCB64wVgzphPmMSpxYJ9FAD 3uXKDmBJBGVN2WcRMfuF2ufdUnUvWrPYMMUeLxR25dwUYaOPWpKMX9SPZdQf2RCTKeW6QwmiPmcXasyz PgHPCbAAHYUZ4MXDfrdyRuvKPreHgfZN46dQpyUK4Z Tu2JHlKcLT5kth5WkQLzBz3KDEPsOM0NMGDvKCNjJUWxXTS6SDYcElBfAMyqQMLuPPQfXQF3OLJiKRFd XN9FAcHwIXXwDtPvMUDwDUXzECJczg1BFTKpEWSnEvC1RjWvCMOkIWTlFGrcRUKlCUToDOO7WMIgCSFj HM3NVwTjUGTeSSMoJlfbSXImBIZwll5WIPYwXLXoJr O6EbNgOUBqUWCmWBkeDJFaLRM9FWZiXAThFETnZZ6EWlWrXOJqXTOhHPOtCBYnBAFaku5UZJIhALIvGI R8VeNaNBXtTOWhOEizNJMtMWT8EvH1IJGcQSDfCR5AOoClRBApCEF8AGDfWJGdAUEfjx6EFJDpPYYyTK pwNDBcEUSmCPXiSXqjYQZhJKP7HQJ8CADdQEYpKE6S YeFwGRMuZFZnPiIyESZtCHKmxm2AFXYdBHPzZvD8JACdDEZsSSBlRJjzBHJvPWH6AEmaGLBlKQXwED5V EtCySQVdPXh2GoUiEGLxFZFlix0XZEVaQCOmQPSpOKQoCIHlABGwRSvdORJlUAN1TSG7BSWnQXAcNA8V KvRaTECrPTsgWmYwGKXoGZPbmm1FNNLvRFRvBNBxSW FgGFDdDWLtXFmlYMTzBMCuGfE9ADUnQQAjQW3XVfJkQISjRsT2SlPdYRRpERVuml5SFFLyAJCwOLX7RI UmWQDfEQVxUEzwWMOuBZQnZyEaHJQeWRRvYC2ODmCwZTPuXrL5YxJbGHEqKOCpts4RDLBwYYHcWqM3Mh FlNTFwWPHnLHyeONLhWUDiLsL2MDWyEUGbMP4IFbFy BNAeToV6GFJmQYOeMOQkhz0WmRZyyYvxhn3FXLzLMp2BfPidCTEjJOghUi6kmIHfHMZtANAXQo1MtqOn QFLlUFAPDOckEGUsJCOuUgc8XNHnBKF8IxRpTQRyWrR8YGFwCSB7JmY4K5EiBtI2UIUwOhz0VQU1Pjw1 ESXoQeAwALKbIII0VjrzAWXcNxL+UX1xUCf+Hq4Vh2OqcfH4ezPnVYluYaR5PA1EKVDVQ4RBCs== ID Date Data Source [id number] 10/13/2020 02:02:38 PM [facility] Name Value Range Interpretation Code Description Data Jazmín rce(s) Supporting Document(s) Glucose [Mass/volume] in Capillary blood by Glucometer 143 mg/dL 70- 140 H [facility] ID Date Data Source [id number] 10/13/2020 09:14:59 AM [facility] Name Value Range Interpretation Code Description Data Jazmín rce(s) Supporting Document(s) Glucose [Mass/volume] in Capillary blood by Glucometer 139 mg/dL 70- 140 [facility] ID Date Data Source [id number] 10/13/2020 05:44:38 AM [facility] Name Value Range Interpretation Code Description Data Jazmín rce(s) Supporting Document(s) Leukocytes [#/volume] in Blood by Automated count 11.9 10*3/uL 4-10 H [facility] Erythrocytes [#/volume] in Blood by Automated count 2.82 10*6/uL 4.6- 6.1 L [facility] Hemoglobin [Mass/volume] in Blood 9.3 g/dL 13.5-18 L [facility] Hematocrit [Volume Fraction] of Blood by Automated count 28.4 % 4 1-53 L [facility] Erythrocyte mean corpuscular volume [Entitic volume] b y Automated count 100.6 fL 80-96 H [facility] Erythrocyte mean corpuscular hemoglobin [Entitic mass] by Automated count 32.9 pg 27-33 [facility] Erythrocyte mean corpuscular hemoglobin concentration [Mass/volume] by Automated count 32.7 g/dL 32.0-36.0 [facility] Erythrocyte distribution width [Ratio] by Automated count 16.7 % 11.5-14.5 [facility] Platelets [#/volume] in Blood by Automated count 197 10*3/uL 150-400 [facility] Differential cell count method - Blood [facility] Neutrophils/100 leukocytes in Blood by Automated count 84 % [facility] Lymphocytes/100 leukocytes in Blood by Automated count 7 % [facility] Monocytes/100 leukocytes in Blood by Automated count 7 % [facility] Eosinophils/100 leukocytes in Blood by Automated count 1 % [facility] Basophils/100 leukocytes in Blood by Automated count 1 % [facility] Neutrophils [#/volume] in Blood by Automated count 10.09 10*3/uL 1.8- 7.0 H [facility] Lymphocytes [#/volume] in Blood by Automated count 0.77 10*3/uL 1.2-4 .0 L [facility] Monocytes [#/volume] in Blood by Automated count 0.85 10*3/uL 0-0.8 H [facility] Eosinophils [#/volume] in Blood by Automated count 0.14 10*3/uL 0-0.5 [facility] Basophils [#/volume] in Blood by Automated count 0.09 10*3/uL 0-0.2 [facility] Nucleated erythrocytes/100 leukocytes [Ratio] in Blood by Automated count 0 /100{WBCs} 0-0 [facility] ID Date Data Source [id number] 10/13/2020 06:31:08 AM [facility] Name Value Range Interpretation Code Description Data Jazmín rce(s) Supporting Document(s) Albumin [Mass/volume] in Serum or Plasma by Bromocresol green (BCG) dye binding method 3.2 g/dL 3.5-5.2 [facility] Bilirubin.total [Mass/volume] in Serum or Plasma 3.5 mg/dL <1.2 H [facility] Confirmed Bilirubin.direct [Mass/volume] in Serum or Plasma 2.9 mg/dL <0.3 H [facility] Alkaline phosphatase [Enzymatic activity/volume] in Serum or Plasma 164 U/L 40-129 [facility] Aspartate aminotransferase [Enzymatic activity/volume] in Serum or Plasma 46 U/L <40 [facility] Alanine aminotransferase [Enzymatic activity/volume] in Seru m or Plasma 175 U/L <41 H [facility] Protein [Mass/volume] in Serum or Plasma 6.1 g/dL 6.4-8.3 L [facility] ID Date Data Source [id number] 10/13/2020 06:31:08 AM [facility] Value Range Interpretation Code Description Data Jazmín rce(s) Supporting Document(s) Phosphate [Mass/volume] in Serum or Plasma 3.2 mg/dL 2.5-4.5 [facility] ID Date Data Source [id number] 10/13/2020 06:31:08 AM EST [facility] Name Value Range Interpretation Code Description Data Jazmín rce(s) Supporting Document(s) Lipase [Enzymatic activity/volume] in Serum or Plasma 28 U/L 13-6 0 [facility] ID Date Data Source [id number] 10/13/2020 06:31:08 AM [facility] Name Value Range Interpretation Code Description Data Jazmín rce(s) Supporting Document(s) Bicarbonate [Moles/volume] in Serum 18 mmol/L 22-29 L [facility] Chloride [Moles/volume] in Serum or Plasma 106 mmol/L 98-107 [facility] Creatinine [Mass/volume] in Serum or Plasma 3.27 mg/dL 0.70-1.20 H [facility] Icteric Glucose [Mass/volume] in Serum or Plasma 143 mg/dL 70-140 H [facility] Potassium [Moles/volume] in Serum or Plasma 4.9 mmol/L 3.4-5.1 [facility] Sodium [Moles/volume] in Serum or Plasma 139 mmol/L 136-145 [facility] Urea nitrogen [Mass/volume] in Serum or Plasma 61 mg/dL 8-23 H [facility] Anion gap 3 in Serum or Plasma 15 mmol/L 8-15 [facility] Osmolality of Serum or Plasma by calculation 308 mosm/kg 275-300 H [facility] Creatinine/Urea nitrogen [Mass Ratio] in Serum or Plasma 19 [facility] Calcium [Mass/volume] in Serum or Plasma 9.0 mg/dL 8.8-10.2 [facility] Glomerular filtration rate/1.73 sq M pre dicted among non-blacks [Volume Rate/Area] in Serum or Plasma by Creatinine-based formula (MDRD) 17 mL/min/1.73m2 >60 L [facility] Glomerular filtration rate/1.73 sq M pre dicted among blacks [Volume Rate/Area] in Serum or Plasma by Creatinine-based formula (MDRD) 20 mL/min/1.73m2 >60 L [facility] ID Date Data Source [id number] 10/13/2020 06:31:08 AM EST [facility] Name Value Range Interpretation Code Description Data Jazmín rce(s) Supporting Document(s) Magnesium [Mass/volume] in Serum or Plasma 1.8 mg/dL 1.6-2.4 [facility] ID Date Data Source [id number] 10/13/2020 06:07:28 AM [facility] Value Range Interpretation Code Description Data Jazmín rce(s) Supporting Document(s) Protein [Mass/volume] in Urine 46 mg/dl [facility] Creatinine [Mass/volume] in Urine 97.9 mg/dL [facility] Protein/Creatinine [Mass Ratio] in Urine 0.47 mg/mg{creat} [facility] ID Date Data Source [id number] 10/13/2020 05:30:40 AM [facility] Value Range Interpretation Code Description Data Jazmín rce(s) Supporting Document(s) Glucose [Mass/volume] in Capillary blood by Glucometer 128 mg/dL 70- 140 [facility] ID Date Data Source [id number] 10/13/2020 01:08:14 AM [facility] Value Range Interpretation Code Description Data Jazmín rce(s) Supporting Document(s) Glucose [Mass/volume] in Capillary blood by Glucometer 132 mg/dL 70 140 [facility] ID Date Data Source [id number] 10/12/2020 09:33:23 PM [facility] Value Range Interpretation Code Description Data Jazmín rce(s) Supporting Document(s) Glucose [Mass/volume] in Capillary blood by Glucometer 135 mg/dL [address] [place] [address] ID Date Data Source [id number] 10/13/2020 06:15:55 AM [facility] Service Cmnt XXX-Imp : NoneMicroorganism XXX Cult : Urine NEGATIVE for L. pneumophila serogroup 1 antigen by immunochromatographic assay. This test does not detect infections due to other L. pneumophila serogroups or to other Legionella species. Name Value Range Interpretation Code Description Data Jazmín rce(s) Supporting Document(s) ID Date Data Source [id number] 10/12/2020 06:11:36 PM [facility] Value Range Interpretation Code Description Data Jazmín rce(s) Supporting Document(s) Glucose [Mass/volume] in Capillary blood by Glucometer 132 mg/dL 70- 140 [facility] ID Date Data Source [id number] 10/12/2020 04:34:22 PM [facility] RENAL OR AORTA COMPLETE [id number] RE SULTInterpreted by:Barak Yomaira, MDHISTORY: Increasing creatinine.TECHNIQUE: Multiple real-time sonographic images [...] rce(s) Supporting Document(s) ID Date Data Source [id number] 10/12/2020 04:25:11 PM [facility] Name Value Range Interpretation Code Description Data [facility] [address] [place](s) Supporting Document(s) [facility] GJCVAl5qHoVEUhCj01/ZAPcySYAbg6ZqDFodJHa4KUdeKLMbC3WdCQE9jA7fCNV8IWxLZsKpWvQfLsWz [facility] [file] 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/UnW1TYbC/b9BRW+JgcBfvQaUqcMbTo1hyfVzwLiLpxm6hc22cj0BEk1kJCQQh8sfbv7VHwXoCW5Mj [file] [id number]= ID Date Data Source [id number] 10/12/2020 04:05:00 PM [facility] Name Value Range Interpretation Code Description Data Jazmín rce(s) Supporting Document(s) [facility] PIXUJx1uOeWMCcPje4PiRlBvAOCdLS5xgzx2O0Z0jGYhT8RoqAUzb2qmZ8KuF9XdEYVnBZWIAS4JwWZx jb2 [file] 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/IjuN0zo4pjh8pX/yaZLvnpTAlyhp/GWT74 [file] O3hV3/fq63292Wp4a0/41Shkhn3VG05/s1/8hb9+l+H3r7/9+u9+9v2XH//6m5/+/KsvP/72R9/85Gdf fvzzX/7kP/+Q8aFoiD7+7M/46id/9+d/Zlm43j/7h5 943t0Yq/zyF7/60bdf/jHJS4n1/c/eG9x95y5+qe0H/8evv/mBuciW+cO2//eb7FvHP9quO/78b//2Bx 83+c9ff/PdL7/5wT/36CqSUwb4go/f/PLLz3/6ik583g4LJ7569ArihmM1U3wC79Ifn/zkj3/4r7/70+ 9/+y9f/q///Low//03f/hv/+M3v/vrLz/+0+9+84cv //QfXjbgf/qPX/74hy/bd7nl7LopE2s9Op207H7+8e8+wfTqEV7Kw//93/ecQ4c5INX0RzL//3voDWtd fX9+9u0YsVbersy/0xvQG4pt5Iwr9+9+zo7+qAYr0ekYJs/8AaX44V3+6fCAs0S/fmvub6Mf9pi/+ts/ /wzg4vqjsctxXd/69svPfvTT//PrX/3ou69/8qm67d Pvso1//A8RoSmfsn9WoDr45D6/sgYWx2TLM4eC/VNP//vf/uHf/tOXP/7i90164z3s1+UXZc95/+j3/E JWmrrS/8LdQ/mrb7/87g//9ts//a/f/I+/qYmxcm50+/vE0o1f25ryj8c85Xe/+Z8fL/+7P/7hz+9vye f+8U03tyA5i+//5r98/8/90K2PqES/9Le/1Tl5fcv0 sbQRsAf2s1zmZjt48ws9UFI7+oM5Tv4skpAmJ39/8pv/57f/+v3Evj0n0bXc/69KW4XdN8M2d//0T//x z/46PsQvfvM/Pp8l38x9x9/8z3/+zb9+dLU/+3209Fy/+zPlbaNv//jH3/9w/ldE1FPgq//xn3/IFjSP GXELvOrvf/ux manager//0Pv/vnj8d/fDf28Ys+3r5tm0g+9l //7aNL/csPf/Ttt++s/PWP/y7LRZSIxV10q294QElm/KUH4At6/f//ybvRqV+Wz7+/+s1/++2X8uWP// XzaO/vnubOBt+4w3VGqq2sdJg/M+YLs711/Q/fifljx/XPN6yNLBaivmvvT9/27qO6j6Kh/egnP/nlr7 /5+KmG9xqsJ7f2K/1/x+UCbOegigFtxTQiYO5XER9o u3DrZqQ8UXWwo0LqEMvwVSz4eHZbSTqsthJte2FxbznhG7Sjm3XfRrEaPARrEkQaNig1PMSoGrK2pEJd IoJqKRUuJ4KuNDJyBcF7KoCiTPHEFA0OIACuxpVcNxDwUPO+UyRrPS6aobmeFZUgq7RcVXgeUQxeXDMb I3C3pNnmTRQzI9YiaW63WELlS2PchgP8GIG6LSCzSv AvTGFzdCAxOSAwIFI+FfEpYY4xtdfwZCTsz2LiLAguKHT6dP6uVNsOVBHKHNmHUFphOdK2u22knsGDAZ BoTNJxCS4KfgKbjMgyheWowBPbOJB0ZkLrQBFlEQUzZeD9HWJUFBDiUQFeJMDqNBKxX0YduWzsQKeJVD DCNEcVYYgoYoTmv7L2QGPmavURQIOFTSCYLILVFLrC HAEtAXY3ZOctHKVtU0TgblXstOIfQHWJWMccFilyIRXglW6scPiiK6LtSUT3b7ReXK9QE3LyKLWfLWKB RYS1b1EnFRDnrbxdbehyYzWjHDUjDBNsBBZyGA3Qhd8xyWLdblQxIGXEUSaoRgnhUJ7irLqzppkpZ8Ck aWVzKSA+KvYiKF9vyl6+DnLrWHYsFdo3LKQlNAdeEW UvWPRuCDTnH1ydEWHnLvMxIIUfFgAqYA1Ij7RdkPPbYd0bioHvMaaNxGXrPbscVWYlALPhCDPzRbUNOJ DdDARuUUMhJPT7ZUBaXHIdHVazMGRqHWp1MXS5MHZvCIGpLH3tBvCxHEHuXqV4KnWgRVIpVSFsowFZRI KiXML4IcpsTnYuQHCoBZJlWDvdBZUwYIBeFVEfRDA8 GHP8JUTeJjGdIEPaXNKmUENkVYDcGURjrgBIBHOqCSBdNOV2FEZwJQIyQTEfHKgoWRUsNGKiOWtpBXVm VSShFY9cEgRlYQVmUPLfMTlqHRSyNBIlzzHOWRBnATRzSVCzYMEaFAYlBJUuRCqxVUKjVDNzVYDlYUCw BRVdFG2dRmVpWEQaGOT6HLKcHUTvQJThduPVMNQmVO FqTXu9ZFOsFQCpFCJsOGvzGMAeZUAuPRG1VYOrASLfFO8kEhJuSTIyPQW2IeXjBKTbALAerdSWSTIuNH JwADZ9DiJaNUOyHEYeKKppXYBmBNAhRWfjLQFtINTbTZ8zLhHxOXOrLVQlCKlwGRDzNCFgenDRYTFkTN AwMTQwNiAwMDAwMCBuIAowMDAwMDczNjMzIDAwMDAw VH5sFmZtXILqYIX9OMmaDBTtPZHcygXIMOCpPXQkDBejZLFjLWIiXWFnNUtnKSPhDPXzOJR4MRKgKHKm DW2fJyZmRWZaIFFmVCAvAdB3SkOvFrGLkYUhxFjvaty7ZOhwQ0r6WYRjEFhzEQ1jvbMxCFCnHhqhJw5g cAE6PXUjBcvHLe5Sh5UjstA4doRsSvi7PFD8RzRbOV9L ID Date Data Source [id number] 10/12/2020 02:32:43 PM [facility] Name Value Range Interpretation Code Description Data Jazmín rce(s) Supporting Document(s) Bicarbonate [Moles/volume] in Serum 18 mmol/L 22-29 L [facility] Chloride [Moles/volume] in Serum or Plasma 105 mmol/L 98-107 [facility] Creatinine [Mass/volume] in Serum or Plasma 3.19 mg/dL 0.70-1.20 H [facility] Icteric Glucose [Mass/volume] in Serum or Plasma 155 mg/dL 70-140 [facility] Potassium [Moles/volume] in Serum or Plasma 5.0 mmol/L 3.4-5.1 [facility] Sodium [Moles/volume] in Serum or Plasma 138 mmol/L 136-145 [facility] Urea nitrogen [Mass/volume] in Serum or Plasma 65 mg/dL 8-23 [facility] Anion gap 3 in Serum or Plasma 16 mmol/L 8-15 H [facility] Osmolality of Serum or Plasma by calculation 308 mosm/kg 275-300 [facility] Creatinine/Urea nitrogen [Mass Ratio] in Serum or Plasma 20 [facility] Calcium [Mass/volume] in Serum or Plasma 9.1 mg/dL 8.8-10.2 [facility] Glomerular filtration rate/1.73 sq M pre dicted among non-blacks [Volume Rate/Area] in Serum or Plasma by Creatinine-based formula (MDRD) 18 mL/min/1.73m2 >60 L [facility] Glomerular filtration rate/1.73 sq M pre dicted among blacks [Volume Rate/Area] in Serum or Plasma by Creatinine-based formula (MDRD) 21 mL/min/1.73m2 >60 L [facility] ID Date Data Source [id number] 10/12/2020 02:32:43 PM [facility] Name Value Range Interpretation Code Description Data Jazmín rce(s) Supporting Document(s) Troponin T.cardiac [Mass/volume] in Serum or Plasma 0.03 ng/mL <0.01 H [facility] ID Date Data Source [id number] 10/12/2020 02:02:06 PM [facility] Name Value Range Interpretation Code Description Data Jazmín rce(s) Supporting Document(s) Glucose [Mass/volume] in Capillary blood by Glucometer 134 mg/dL 70- 140 [facility] ID Date Data Source [id number] 10/12/2020 12:33:37 PM [facility] Name Value Range Interpretation Code Description Data Jazmín rce(s) Supporting Document(s) History and Physical [facility] YRUEOl6eBcVCJgXd29/NIVkgWXBex3ZxOSjyMTf2GKvlTRJqR4MpXHB9bL7eLLT9MSiIVsCcTuQuCcCa lbm [file] AgICAgICAgICAgICAgICAgICAgICAgICAgICAgICAgICAgICAgICAgICAgICAgICAgICAgICAgICAgIC CuUTFuGJIbBM8XLHFbXKGiJIViEIAbZHMlPTUwZKJu ICAgICAgICAgICAgICAgICAgICAgICAgICAgICAgICAgICAgICAgICAgICAgICAgICAgICAgICAgICAg PGTpPWQjDPZmOBHoTWQyGRDhFS3YTFTeVDJkEXCkJCNdODQwMEAgPQOqKSDwEHZwBPKwFLGiTONfGFIz ICAgICAgICAgICAgICAgICAgICAgICAgICAgICAgIC OtYTIlCMMpRLKhPAYwWUIxYNRbOSUrSXVnOPFvIM3XYUAwVBLaSDCsGPRzEZJjZHBuEBExIQXkXIFoKH AgICAgICAgICAgICAgICAgICAgICAgICAgICAgICAgICAgICAgICAgICAgICAgICAgICAgICAgICAgIC JrSCEcAAWjRMAaEJ6QSXNtLJIiMRXvMUKoBKCgRVZy ICAgICAgICAgICAgICAgICAgICAgICAgICAgICAgICAgICAgICAgICAgICAgICAgICAgICAgICAgICAg IWXkPZHrEWElQEQzWHMcNCFtUJUuMO9ARVDmGFYaJAHlXVRpMMWmTXZoYUPhALZvRLHyZCTaUUQaKIFy ICAgICAgICAgICAgICAgICAgICAgICAgICAgICAgIC KsIOUdNLTxZMYrQHCvGKTqQWFnOUUvYRAsQDVxEWDbLX9FSDKcLGWpIMNcCMNjZSVpSHOjFYZzNCRvSO AgICAgICAgICAgICAgICAgICAgICAgICAgICAgICAgICAgICAgICAgICAgICAgICAgICAgICAgICAgIC AuRPAwGMAaGURwGEZyJS1GMJNdXTYsPWIhXZCiAPZg ICAgICAgICAgICAgICAgICAgICAgICAgICAgICAgICAgICAgICAgICAgICAgICAgICAgICAgICAgICAg CPOrQRDtXOSzRWDvOMQjUQRpUCHaAWBiVX3FBZCeQYRqJMSnCJQsSWXeBIRiSROwJNHlTFIjSIGgONBc ICAgICAgICAgICAgICAgICAgICAgICAgICAgICAgIC YzCEMhFHIoGYMnMGHrCNJrQDMbPCJbKFLxADTvMCQdNOZbSX9UXDPwSWCjFUGtBRRdJWLhJBXwQZUwHO AgICAgICAgICAgICAgICAgICAgICAgICAgICAgICAgICAgICAgICAgICAgICAgICAgICAgICAgICAgIC EvRZFdGYPpNVHgAFIaOTKpLB9QGR99aXApc7T7DRRc IE4zzkw/Jg9WDCxqumZxnWFcYP1LLbVaQP3ngo9PZbAdVB6fux2HQXpPAvBpH1Y2xWKrTIZaAKOPIzYg J75bZXmiEq43ILnfTVNyNdOyYPu7Pt9AZdEzF1gcUVLrMuB4MEHgCeP8BAHeXzK1BJRyCaXeQOJxHNRr TINmHMOAEYI7IZCyCcKqKGwxBY5Ld2QtqIM2LCc+Pg 1OLQ8eg4WiIEyaRFPxHI3fip5UBJqIUaUtX7TxhtD5GHW6SKVuXz3TXTMdXPFljCZpQvDbUEFNKhFmQ8 QahT73RIQJUh2+OKkmecDsJrfXBcQ4XFGbp7AoZHr5MS6HNEKgJQa7gQMiYKANNLG3TRTdTVWejyHVyX OuxaavXVEbJSSkFn0hIS0fJRHpXKZ0VvO1LSWMVV5N PJFdIXRsaGHhGFHnMCXSOK4SARdbNZA1UUBjanPpaIZmXFvoAG2IREOooyWtQqOeWJRFNXz+Ie9EHN4s z8MsZDvsQeFrZQ9qtd1KPLcCOzOgT1X0vGGdA2L9TPzbWh6CVCUeIAErUtNlMGYDXJuvIL4MTC9obaL2 XZ8NxAJqVYNqZENjuLXpFJr2Q84qnTIaDTqkEC9LMK A+Shawn+Vb9YKNKqJBKyJWHpIjSzLJZDPgBqA7BlR2HXe3NpZ1SrKT43lAmlniYaAZfhJS6YLF2wSDNbUL MEYJ7GaVGkqQ1yhhYfODSdYUKKPlZrS35usYCnFODmPLG3OMQeZx0SSIUgE7BsliPenKbikpWxOFDvJL QORC8MVWowybUeoMHnxPmkCH44oFdfRU0XOv9GHbZr NG0itb2MrFWnCo0FFLVgAR2NKXGlVSTpDZWwZRK1SZBpMvIiTEzhOJQrLHCuXKR0FPEnGVBoTL4LQdKz DCCoDeFfRqCiVGUjGHGdhh0ASVDsPVCvBPk4ISUnOJWrJTWwJNduZXJcJYSmYRW6WNIfFFSrZV2ZFnXt UVPwPWI6NHhkATRlQATftm8FCNEpHKVvSUE2QiEuHB RiMFFlNObcJYGyRWR4YEV3QGGiBCHnCI8DGrXdKSQbQID4ILcqNNJxUFOrgu5EVRIkOITcYPt1CDNcGV VgTJNbLFncHMKhBQA3MQU9EVJcDSLhUJ3EEjOxCXTkNFM0FfdqALIhDUExpo1CXNIwZVAkHeA7ZMAfAF GvBZJnGOzqLUYxUUD5LTB8ZEXpFFLyAH7XKaJnXFLj MYEkMdSwWPBoFFFpvi5TTJEoKHZmTeM7GVTdKOTqDFMbIIeyPLCiSRQ1Tse0ECSiDUHkGT9TDhIzEKOe QLvxOgTiAGSgTYMawx6SIVJtPGNfUfDmOxOlBFGrSCNfPQeyIOTwWUP9ZtM5DRXmZOJaXN6QWgHwMWIo IIs8EqFaDPWnTBBluw4UZRAeLFDmKUd8GyLxAMYbBR OgWJrpDKGhRVC2WEC7PNUwVMUiBV4UBoJqYHTyNhSnIyBiKYSqIRQvve3ISDDzOZRvUXRcQUDxEVXsKY QgELllLUCgINLsVBU9EBGxIUFyKJ5UMgSlCYDaQsD2VSrrZYZpAQRdvl7MVPOnVMSdVeRsNpRfRWQnJE YlYInaKSZkUVUzQsZ5FPWnYAZaVA6INfBeSFUeBhP8 OLSmSRWpLDOmux2VZAImLZYhQoodTLSrKRYoLQQtDGopXLAaNLFcKnQ0AFXcCHUoON5AGpNyORCmIgY3 StTtGNYhTPUevy5YUVEaDXIhWNSuSQNxYEJmMDQdDAqfVYCbYZL5IKS6YUJuPKBoNV7BIyWjECGkSyP7 ADUeRFBmFUTqje6ETEBnGKWvDNl3WhIuOTZiKDVkWA rgEYOhXOW6ASEsMYRhQOKvQR6KHkUsQEllGLNPRns6DSemS6y2CFXaCO1QJ9Ija8LmMgoyBFCMOAvpLJ 1exxAtMQAxOh7YE5lPVvmbXJlmGGvsOlHcGJLyASevARi7RdJ7CcLxURz3YrOuKb7eGNP8WBC6W0CoGI K2SgK2OHChZKRfQkngNQT2PTXlHxM3EuRpMC4YPe7FDqF1IBJ4dIPiZh1BOcKlXcMHMtZqLF2KBYc= ID Date Data Source [id number] 10/12/2020 10:10:55 AM EST [facility] Name Value Range Interpretation Code Description Data Jazmín rce(s) Supporting Document(s) [facility]cWv73/EVEpsMOYmf6IiVJxyPHb2BNcoPPPoF5QiSBW1lV1bZTN0AOlCGbQlAyQcHaNr lbm [file] == ID Date Data Source [id number] 10/12/2020 10:05:47 AM [facility] Name Value Range Interpretation Code Description Data Jazmín rce(s) Supporting Document(s) Glucose [Mass/volume] in Capillary blood by Glucometer 148 mg/dL 70- 140 H [facility] ID Date Data Source [id number] 10/12/2020 09:36:47 AM [facility] Name Value Range Interpretation Code Description Data Jazmín rce(s) Supporting Document(s) Hepatitis C virus Ab [Presence] in Serum or Plasma by Immuno assay Non Reactive [facility] No serological evidence of active infect ion. If recent exposure is suspected, test for HCV RNA. ID Date Data Source [id number] 10/12/2020 06:39:00 AM [facility] Name Value Range Interpretation Code Description Data Jazmín rce(s) Supporting Document(s) Leukocytes [#/volume] in Blood by Automated count 19.0 10*3/uL 4-10 H [facility] Erythrocytes [#/volume] in Blood by Automated count 3.05 10*6/uL 4.6- 6.1 L [facility] Hemoglobin [Mass/volume] in Blood 10.0 g/dL 13.5-18 L [facility] Hematocrit [Volume Fraction] of Blood by Automated count 31.0 % 4 1-53 L [facility] Erythrocyte mean corpuscular volume [Entitic volume] b y Automated count 101.6 fL 80-96 H [facility] Erythrocyte mean corpuscular hemoglobin [Entitic mass] by Automated count 32.9 pg 27-33 [facility] Erythrocyte mean corpuscular hemoglobin concentration [Mass/volume] by Automated count 32.4 g/dL 32.0-36.0 [facility] E[facility]th[facility] distribution width [Ratio] by Automated count 16.3 % 11.5-14.5 H [facility] Platelets [#/volume] in Blood by Automated count 202 10*3/uL 150-400 [facility] Differential cell count method - Blood [facility] Neutrophils/100 leukocytes in Blood by Automated count 90 % [facility] Lymphocytes/100 leukocytes in Blood by Automated count 4 % [facility] Monocytes/100 leukocytes in Blood by Automated count 6 % [facility] Eosinophils/100 leukocytes in Blood by Automated count 0 % [facility] Basophils/100 leukocytes in Blood by Automated count 0 % [facility] Neutrophils [#/volume] in Blood by Automated count 17.12 10*3/uL 1.8- 7.0 H [facility] Lymphocytes [#/volume] in Blood by Automated count 0.67 10*3/uL 1.2-4 .0 L [facility] Monocytes [#/volume] in Blood by Automated count 1.20 10*3/uL 0-0.8 H [facility] Eosinophils [#/volume] in Blood by Automated count 0.01 10*3/uL 0-0.5 [facility] Basophils [#/volume] in Blood by Automated count 0.04 10*3/uL 0-0.2 [facility] Nucleated erythrocytes/100 leukocytes [Ratio] in Blood by Automated count 0 /100{WBCs} 0-0 [facility] ID Date Data Source [id number] 10/12/2020 06:50:25 AM [facility] Name Value Range Interpretation Code Description Data Jazmín rce(s) Supporting Document(s) Prothrombin time (PT) 17.5 s 12.5-14.9 H [facility] INR in Platelet poor plasma by Coagulation assay 1.41 [facility] Routine intensity oral anticoagulation I NR is typically 2.0-3.0. Target INR must be clinically individualized. ID Date Data Source [id number] 10/12/2020 07:29:22 AM [facility] Value Range Interpretation Code Description Data Jazmín rce(s) Supporting Document(s) Troponin T.cardiac [Mass/volume] in Serum or Plasma 0.03 ng/mL <0.01 H [facility] ID Date Data Source [id number] 10/12/2020 07:29:22 AM [facility] Name Value Range Interpretation Code Description Data Jazmín rce(s) Supporting Document(s) Albumin [Mass/volume] in Serum or Plasma by Bromocresol green (BCG) dye binding method 3.5 g/dL 3.5-5.2 [facility] Bilirubin.total [Mass/volume] in Serum or Plasma 4.6 mg/dL <1.2 H [facility] Calcium [Mass/volume] in Serum or Plasma 8.8 mg/dL 8.8-10.2 [facility] Chloride [Moles/volume] in Serum or Plasma 104 mmol/L 98-107 [facility] Creatinine [Mass/volume] in Serum or Plasma 3.35 mg/dL 0.70-1.20 H [facility] Icteric Glucose [Mass/volume] in Serum or Plasma 156 mg/dL 70-140 H [facility] Alkaline phosphatase [Enzymatic activity/volume] in Serum or Plasma 154 U/L 40-129 H [facility] Potassium [Moles/volume] in Serum or Plasma 4.9 mmol/L 3.4-5.1 [facility] Protein [Mass/volume] in Serum or Plasma 6.4 g/dL 6.4-8.3 [facility] Sodium [Moles/volume] in Serum or Plasma 137 mmol/L 136-145 [facility] Aspartate aminotransferase [Enzymatic activity/volume] in Serum or Plasma 77 U/L <40 H [facility] Urea nitrogen [Mass/volume] in Serum or Plasma 65 mg/dL 8-23 H [facility] Osmolality of Serum or Plasma by calculation 306 mosm/kg 275-300 H [facility] Creatinine/Urea nitrogen [Mass Ratio] in Serum or Plasma 19 [facility] Bicarbonate [Moles/volume] in Serum 20 mmol/L 22-29 L [facility] Alanine aminotransferase [Enzymatic activity/volume] in Seru m or Plasma 281 U/L <41 H [facility] Anion gap 3 in Serum or Plasma 13 mmol/L 8-15 [facility] Glomerular filtration rate/1.73 sq M pre dicted among non-blacks [Volume Rate/Area] in Serum or Plasma by Creatinine-based formula (MDRD) 17 mL/min/1.73m2 >60 L [facility] Glomerular filtration rate/1.73 sq M pre dicted among blacks [Volume Rate/Area] in Serum or Plasma by Creatinine-based formula (MDRD) 19 mL/min/1.73m2 >60 L [facility] ID Date Data Source [id number] 10/12/2020 09:11:02 AM [facility] Value Range Interpretation Code Description Data Jazmín rce(s) Supporting Document(s) Bilirubin.direct [Mass/volume] in Serum or Plasma 4.1 mg/dL <0.3 H [facility] ID Date Data Source [id number] 10/12/2020 09:11:02 AM [facility] Value Range Interpretation Code Description Data Jazmín rce(s) Supporting Document(s) Lipase [Enzymatic activity/volume] in Serum or Plasma 212 U/L 13-6 0 H [facility] ID Date Data Source [id number] 10/12/2020 06:13:24 AM [facility] Value Range Interpretation Code Description Data Jazmín rce(s) Supporting Document(s) Glucose [Mass/volume] in Capillary blood by Glucometer 142 mg/dL 70- 140 H [facility] ID Date Data Source [id number] 10/12/2020 02:01:40 AM [facility] Value Range Interpretation Code Description Data Jazmín rce(s) Supporting Document(s) Glucose [Mass/volume] in Capillary blood by Glucometer 156 mg/dL 70- 140 [facility] ID Date Data Source [id number] 10/12/2020 12:31:08 AM [facility] Value Range Interpretation Code Description Data Jazmín rce(s) Supporting Document(s) Troponin T.cardiac [Mass/volume] in Serum or Plasma 0.03 ng/mL <0.01 H [facility] ID Date Data Source [id number] 10/11/2020 11:57:20 PM [facility] Value Range Interpretation Code Description Data Jazmín rce(s) Supporting Document(s) History and Physical [facility] MKILNv1uYxWIVfJv29/WVZuoYEPrr1WyLVrqJNh8NAueEYQgK8BpLDJ3zN6gOOL6JVvSFkVxFjXoMwG4 lbm ObWxbPQpAtZCQsIqlIFeXxTRyuBrblrBLhIA2HkDJ1XDNeE22bKUCaKLKjH5VnIRH3HWy+Ex8DTXHpuB GtJK0FDxiD4M1nNcrLKc9+Vfc/ACVD5gEKssd79TsYJ/jkYVv8hBG7x2oDMODtFav48K+/1T4k+uf1D/ WjKUYCj5eRB7Kp7sDH2+lZGVP+239dUs0cjpAc/xb/ jFPPnIzM3/9mlo/15xKv5G/yWfFQ0gOFXE6H/8T2z8ljx1XHf+BDTSs5Yl7kd7qMHnZD5cDlcXS34Jo0 3J/RmjlV5xjqsyymK7/mHk3fK9oT3R/w5Ik5/f00UZglAwK5mDydD8nA+meZsQjcdSN/Qpy4ZjoEn2br m9QwMZetqanvOpQu6B+3GJ7L207ZaUgfUT63PE8p13 nm3zUss/SqEG6sxFFLzOsjFiJlB4cjfU3Lhnz9QuxAElYsSJtj8pLw3g14L42y2edXQ39XBY2DW082Y2 pIe2ZhIVcbgSTbdHeYyy0aXMFOgnFh+W30k004+Um+ftG7jlI/0V6tHa0tc00/UFddR5zAMKWMlyps5p 1qgwaT1RvhSp58ln5jBEwIIlAM6xQmAH2OTOvShI3U UiNmbkQ9YhFvScjs6QymiGklXlRugb2/v+b0ke7b5nkxZKxbhSC7xPC/Zb6iI96jT8Bc+y8wExsLsLWo UAGv+Mo15uMuuZ/QbzNlSaNbUULN2V2VengLYqSFB1m8iBJ6LTrQ1Bo2zdY+KC3w/FGdmC2l8YXc/YSABEL xWpeyndymcmx/gueag0dOEYiEXcoezZmPJ09PD3Ylk [file] C0Fl6qCIBBVl1+OOnusLOzkNwcHRJHQyR0JUAjQNyiOODPUa2I ID Date Data Source [id number] 10/11/2020 10:28:31 PM [facility] Name Value Range Interpretation Code Description Data Jazmín rce(s) Supporting Document(s) Glucose [Mass/volume] in Capillary blood by Glucometer 205 mg/dL 70- 140 H [facility] ID Date Data Source [id number] 10/16/2020 11:15:58 AM [facility] Service Cmnt XXX-Imp : LACMicroorganism XXX Cult : No growth 5 days Name Value Range Interpretation Code Description Data Jazmín rce(s) Supporting Document(s) ID Date Data Source [id number] 10/11/2020 10:06:18 PM [facility] Name Value Range Interpretation Code Description Data Jazmín rce(s) Supporting Document(s) Lactate [Moles/volume] in Serum or Plasma 1.8 mmol/l 0.5-2.2 [facility] ID Date Data Source [id number] 10/11/2020 10:00:22 PM [facility] Name Value Range Interpretation Code Description Data Jazmín rce(s) Supporting Document(s) Color of Urine [facility] Clarity of Urine [facility] Specific gravity of Urine by Refractometry automated 1.012 1.003 -1.030 [facility] pH of Urine by Automated test strip 5.0 5.0-8.0 [facility] Protein [Mass/volume] in Urine by Automated test strip 100 mg/dL Neg [facility] Glucose [Mass/volume] in Urine by Automated test strip 50 mg/dL Neg [facility] Ketones [Mass/volume] in Urine by Automated test strip Neg [facility] Bilirubin.total [Presence] in Urine by Automated test strip Negative [facility] Hemoglobin [Presence] in Urine by Automated test strip Neg [facility] Leukocyte esterase [Presence] in Urine by Automated test strip Negative [facility] Nitrite [Presence] in Urine by Automated test strip Negati [facility] Leukocytes [#/area] in Urine sediment by Automated count 0 -5 [facility] Erythrocytes [#/area] in Urine sediment by Automated count 0-3 [facility] Service comment [facility] ID Date Data Source [id number] 10/11/2020 10:00:38 PM [facility] Name Value Range Interpretation Code Description Data Jazmín rce(s) Supporting Document(s) Creatinine [Mass/volume] in Urine 68.0 mg/dl [facility] ID Date Data Source [id number] 10/11/2020 10:00:38 PM [facility] Name Value Range Interpretation Code Description Data Jazmín rce(s) Supporting Document(s) Sodium [Moles/volume] in Urine 50 mmol/L [facility] ID Date Data Source [id number] 10/11/2020 10:00:38 PM [facility] Name Value Range Interpretation Code Description Data Jazmín rce(s) Supporting Document(s) Urea nitrogen [Mass/volume] in Urine 659 mg/dL [facility] ID Date Data Source [id number] 10/11/2020 09:45:27 PM [facility] Value Range Interpretation Code Description Data Jazmín rce(s) Supporting Document(s) pH of Venous blood 7.31 7.36-7.41 L [facility] Carbon dioxide [Partial pressure] in Venous blood 40 mmHg 40-45 [facility] Oxygen [Partial pressure] in Venous blood 34 mmHg [facility] Base excess in Venous blood by calculation [facility] Carbon dioxide, total [Moles/volume] in Venous blood by calculat ion 21 mmol/L [facility] Oxygen saturation in Venous blood 61 % 60-85 [facility] ID Date Data Source [id number] 10/11/2020 09:24:47 PM [facility] XR CHEST FRONTAL ONLY [id number] RESULTI nterpreted by:SIRIA GibbonsPROCEDURE INFORMATION: Exam: XR [...] rce(s) Supporting Document(s) ID Date Data Source [id number] 10/16/2020 11:15:58 AM [facility] Service Cmnt XXX-Imp : RACMicroorganism XXX Cult : No growth 5 days Name Value Range Interpretation Code Description Data Jazmín rce(s) Supporting Document(s) ID Date Data Source [id number] 10/11/2020 07:45:27 PM [facility] US ABDOMEN LIMITED [id number] RESULTInte rpreted by:SIRIA GibbonsPROCEDURE INFORMATION: Exam: US [...] rce(s) Supporting Document(s) ID Date Data Source [id number] 10/11/2020 07:41:00 PM EST [facility] Name Value Range Interpretation Code Description Data Jazmín rce(s) Supporting Document(s) SARS-CoV-2 RNA 2019 nCoV Real-Time RT-PCR: NOT DETECTED [facility] This lab was ordered by [facility] and reported by [facility]. ID Date Data Source [id number] 10/11/2020 08:58:01 PM [facility] Service Cmnt XXX-Imp : NoneRespiratory P CR Panel : PCR ResultsMicroorganism XXX Cult : See Labs Tab for 2019 nCoV RT-PCR resultsHAdV DNA QI MATHEW+non-probe : Not DetectedHCoV 229ERNA Nph QI MATHEW+non-probe : Not DetectedHCoV HTQ1YOP Nph QI MATHEW+non-probe : Not RvfaeoiuZOvKHZ50 RNA Nph QI MATHEW+non-probe : Not SzbcjzuvZOgUBU46 RNA Upper resp QI MATHEW+probe : Not DetectedhMPV RNA Nph QINAA+non-probe : Not DetectedRV+EV RNA Nph QI MATHEW+non-probe : Not DetectedFLUAV RNA Nph QI MATHEW+ non-probe : Not DetectedFLUBV RNA Nph QI MATHEW+non-probe : Not DetectedHPIV1 RNA NphQINAA+non-probe : Not DetectedHPIV2 RNA Nph QINAA+non-probe : Not DetectedHPVI3 RNA Nph MATHWE+non-probe : Not DetectedHPIV4 RNA Nph Q MATHEW+non-probe : Not DetectedRSV RNA Nph Q MATHEW+non-probe : Not DetectedB pert.PT PrmtNph Q MATHEW+non-probe : Not DetectedC pneum DNA Nph Q MATHEW+non-probe : Not DetectedM pneum DNA Nph Q MATHEW+non-probe : Not DetectedB soyluBZ214 DNA Nph MATHEW+non-probe : Not Detected Name Value Range Interpretation Code Description Data Jazmín rce(s) Supporting Document(s) ID Date Data Source [id number] 10/11/2020 08:57:31 PM [facility] Name Value Range Interpretation Code Description Data Jazmín rce(s) Supporting Document(s) Specimen source [Identifier] of Unspecified specimen [facility] SARS-CoV-2 RNA 2019 nCoV Real-Time RT-PCR: NOT DETECTED [facility] Assay Performed [facility] Patients first test for condition [facility] 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 [facility] Patient has symptoms related to condition [facility] When did you start to experience these symptoms [Date and time] [Phen X] [facility] Patient was hospitalized because of this condition [facility] patient was admitted to ICU for condition [facility] Patient resides in a congregate care setting [facility] status [facility] ID Date Data Source [id number] 10/11/2020 07:13:33 PM [facility] Name Value Range Interpretation Code Description Data Jazmín rce(s) Supporting Document(s) ABO and Rh group [Type] in Blood [facility] Blood group antibody screen [Presence] in Serum or Plasma [facility] Performed at [facility], [address] [place] Confirmed ID Date Data Source [id number] 10/11/2020 10:35:28 PM [facility] Value Range Interpretation Code Description Data Jazmín rce(s) Supporting Document(s) Hemoglobin A1c/Hemoglobin.total in Blood by HPLC 6.4 % 4.0-6.0 H [facility] Glucose mean value [Mass/volume] in Blood Estimated fr om glycated hemoglobin 137 mg/dL <126 H [facility] ID Date Data Source [id number] 10/11/2020 06:25:47 PM [facility] Value Range Interpretation Code Description Data Jazmín rce(s) Supporting Document(s) Leukocytes [#/volume] in Blood by Automated count 18.4 10*3/uL 4-10 H [facility] Erythrocytes [#/volume] in Blood by Automated count 3.12 10*6/uL 4.6- 6.1 L [facility] Hemoglobin [Mass/volume] in Blood 10.2 g/dL 13.5-18 L [facility] Hematocrit [Volume Fraction] of Blood by Automated count 31.6 % 4 1-53 L [facility] Erythrocyte mean corpuscular volume [Entitic volume] b y Automated count 101.4 fL 80-96 H [facility] Erythrocyte mean corpuscular hemoglobin [Entitic mass] by Automated count 32.7 pg 27-33 [facility] Erythrocyte mean corpuscular hemoglobin concentration [Mass/volume] by Automated count 32.2 g/dL 32.0-36.0 [facility] distribution width [Ratio] by Automated count 16.1 % 11.5-14.5 H [facility] Platelets [#/volume] in Blood by Automated count 211 10*3/uL 150-400 [facility] Differential cell count method - Blood [facility] Neutrophils/100 leukocytes in Blood by Automated count 93 % [facility] Lymphocytes/100 leukocytes in Blood by Automated count 2 % [facility] Monocytes/100 leukocytes in Blood by Automated count 5 % [facility] Eosinophils/100 leukocytes in Blood by Automated count 0 % [facility] Basophils/100 leukocytes in Blood by Automated count 0 % [facility] Neutrophils [#/volume] in Blood by Automated count 17.28 10*3/uL 1.8- 7.0 H [facility] Lymphocytes [#/volume] in Blood by Automated count 0.32 10*3/uL 1.2-4 .0 L [facility] Monocytes [#/volume] in Blood by Automated count 0.84 10*3/uL 0-0.8 H [facility] Eosinophils [#/volume] in Blood by Automated count 0.00 10*3/uL 0-0.5 [facility] Basophils [#/volume] in Blood by Automated count 0.01 10*3/uL 0-0.2 [facility] Nucleated erythrocytes/100 leukocytes [Ratio] in Blood by Automated count 0 /100{WBCs} 0-0 [facility] ID Date Data Source [id number] 10/11/2020 06:47:57 PM [facility] Name Value Range Interpretation Code Description Data Jazmín rce(s) Supporting Document(s) Albumin [Mass/volume] in Serum or Plasma by Bromocresol green (BCG) dye binding method 3.9 g/dL 3.5-5.2 [facility] Bilirubin.total [Mass/volume] in Serum or Plasma 4.0 mg/dL <1.2 H [facility] Bilirubin.direct [Mass/volume] in Serum or Plasma 3.6 mg/dL <0.3 H [facility] Alkaline phosphatase [Enzymatic activity/volume] in Serum or Plasma 153 U/L 40-129 H [facility] Aspartate aminotransferase [Enzymatic activity/volume] in Serum or Plasma 135 U/L <40 H [facility] Alanine aminotransferase [Enzymatic activity/volume] in Seru m or Plasma 382 U/L <41 H [facility] Protein [Mass/volume] in Serum or Plasma 6.8 g/dL 6.4-8.3 [facility] ID Date Data Source [id number] 10/11/2020 06:47:57 PM [facility] Value Range Interpretation Code Description Data Jazmín rce(s) Supporting Document(s) Bicarbonate [Moles/volume] in Serum 17 mmol/L 22-29 [facility] Chloride [Moles/volume] in Serum or Plasma 103 mmol/L 98-107 [facility] Creatinine [Mass/volume] in Serum or Plasma 2.84 mg/dL 0.70-1.20 [facility] Glucose [Mass/volume] in Serum or Plasma 237 mg/dL 70-140 [facility] Potassium [Moles/volume] in Serum or Plasma 5.1 mmol/L 3.4-5.1 [facility] Sodium [Moles/volume] in Serum or Plasma 134 mmol/L 136-145 [facility] Urea nitrogen [Mass/volume] in Serum or Plasma 63 mg/dL 8-23 [facility] Anion gap 3 in Serum or Plasma 14 mmol/L 8-15 [facility] Osmolality of Serum or Plasma by calculation 304 mosm/kg 275-300 [facility] Creatinine/Urea nitrogen [Mass Ratio] in Serum or Plasma 22 [facility] Calcium [Mass/volume] in Serum or Plasma 9.1 mg/dL 8.8-10.2 [facility] Glomerular filtration rate/1.73 sq M pre dicted among non-blacks [Volume Rate/Area] in Serum or Plasma by Creatinine-based formula (MDRD) 20 mL/min/1.73m2 >60 [facility] Glomerular filtration rate/1.73 sq M pre dicted among blacks [Volume Rate/Area] in Serum or Plasma by Creatinine-based formula (MDRD) 24 mL/min/1.73m2 >60 L [facility] ID Date Data Source [id number] 10/11/2020 06:47:57 PM [facility] Value Range Interpretation Code Description Data Jazmín rce(s) Supporting Document(s) Troponin T.cardiac [Mass/volume] in Serum or Plasma 0.02 ng/mL <0.01 H [facility] ID Date Data Source [id number] 10/11/2020 06:56:27 PM EST [facility] Name Value Range Interpretation Code Description Data Jazmín rce(s) Supporting Document(s) Lipase [Enzymatic activity/volume] in Serum or Plasma 1966 U/L 13-6 0 H [facility] Confirmed ID Date Data Source [id number] 10/11/2020 09:41:08 PM EST [facility] Name Value Range Interpretation Code Description Data Jazmín rce(s) Supporting Document(s) Magnesium [Mass/volume] in Serum or Plasma 1.9 mg/dL 1.6-2.4 [facility] ID Date Data Source [id number] 10/11/2020 09:41:08 PM [facility] Name Value Range Interpretation Code Description Data Jazmín rce(s) Supporting Document(s) Triglyceride [Mass/volume] in Serum or Plasma 55 mg/dL <150 [facility] ID Date Data Source [id number] 10/11/2020 09:41:08 PM [facility] Name Value Range Interpretation Code Description Data Jazmín rce(s) Supporting Document(s) Phosphate [Mass/volume] in Serum or Plasma 4.5 mg/dL 2.5-4.5 [facility] ID Date Data Source [id number] 10/11/2020 02:08:00 PM EST [facility] Name Value Range Interpretation Code Description Data Jazmín rce(s) Supporting Document(s) SARS coronavirus 2 RNA [Presence] in Res piratory specimen by MATHEW with probe detection NEGATIVE [facility] This lab was ordered by [facility] a nd reported by [facility]. Procedure Social History Code Duration Value Status Description Data Source(s ) Smoking 04/26/2021 12:00:00 AM EDT Ex-smoker (finding) complet ed Ex-smoker (finding) [place] ([facility]) Smoking 04/21/2021 12:00:00 AM EDT - 08/14/2009 12:00:00 AM EST Patient is a former smoker completed Patient is a former smoker [facility] ([facility]) Alcohol intake 04/09/2021 12:00:00 AM EDT Ex-drinker (finding) comp leted Ex- drinker (finding) [facility] Alcohol intake 04/05/2021 12:00:00 AM EDT Current drinker of al cohol (finding) completed Current drinker of alcohol (finding) [facility] Smoking 01/20/2021 12:00:00 AM EDT Ex-smoker (finding) complet ed Ex-smoker (finding) [place] ([facility]) Alcohol intake 12/30/2020 12:00:00 AM EDT Ex-drinker (finding) comp leted Ex- drinker (finding) [facility] Tobacco use and exposure 12/30/2020 12:00:00 AM EDT Never used co mpleted Never used [facility] Cigarette pack-years 12/30/2020 12:00:00 AM EDT UNK completed [facility] Cigarettes smoked current (pack per day) - Reported 12/31/19 12:00:00 AM EDT UNK completed [facility] Smoking 12/30/2020 12:00:00 AM EDT Former smoker completed Former smoker [facility] Smoking 12/24/2020 12:00:00 AM EDT Ex-smoker (finding) complet ed Ex-smoker (finding) [place] ([facility]) Alcohol intake 11/26/2020 12:00:00 AM EDT Ex-drinker (finding) comp leted Ex- drinker (finding) [facility] 11/25/2020 12:39:35 PM EDT Former Smoker completed Former Smoker [facility] 11/25/2020 12:39:35 PM EDT Cigarettes completed Cigarette s [facility] 11/25/2020 12:39:35 PM EDT Former Smoker completed Former Smoker [facility] 11/25/2020 12:39:35 PM EDT [facility]igarettes [facility] Smoking 11/25/2020 12:39:00 PM EDT Ex-smoker (finding) complet ed Ex-smoker (finding) [facility] Smoking 11/25/2020 12:39:00 PM EDT Ex-smoker (finding) complet ed Ex-smoker (finding) [facility] Smoking 10/27/2020 12:00:00 AM EDT Never smoked tobacco (findi ng) completed Never smoked tobacco (finding) [place] ([facility]) Alcohol intake 10/12/2020 12:00:00 AM EST Ex-drinker (finding) comp leted Ex- drinker (finding) [facility] Smoking 09/17/2020 12:00:00 AM EST Never smoked tobacco (findi ng) completed Never smoked tobacco (finding) [place] ([facility]) Smoking 05/12/2020 12:00:00 AM EDT Ex-smoker (finding) complet ed Ex-smoker (finding) [place] ([facility]) Vital Signs ID Date Data Source UNK Name Value Range Interpretation Code Description Data Source(s) Systolic blood pressure 140 mm[Hg] 140 mm[Hg] [facility] ([facility]) Diastolic blood pressure 60 mm[Hg] 60 mm[Hg] [place] ([facility]) Systolic blood pressure 144 mm[Hg] 144 mm[Hg] [facility] ([facility]) Diastolic blood pressure 66 mm[Hg] 66 mm[Hg] [place] ([facility]) Oxygen saturation in Arterial blood by Pulse oximetry 98 % 98 % [place] ([facility]) Heart rate 75 /min 75 /min [place] ([facility]) Heart rate rhythm 1 1 [place] ([facility]) Respiratory rate 18 /min 18 /min [place] ([facility]) Body temperature 97.2 [degF] 97.2 [degF] [facility] ([facility]) Body height 66 [in_i] 66 [in_i] [place] [facility] Body weight 178 [lb_av] 178 [lb_av] [place] [facility] Body mass index (BMI) [Ratio] 28.7 kg/m2 28.7 k g/m2 [place] ([facility]) Body surface area Derived from formula 1.90 m2 1.90 m2 [place] ([facility]) PhenX - pain, abdominal - type and intensity protocol 0 0 [place] ([facility]) Body temperature 95.9 [degF] 95.9 [degF] [facility] ([facility]) Systolic blood pressure 147 mm[Hg] 147 mm[Hg] [facility] Diastolic blood pressure 66 mm[Hg] 66 mm[Hg] [facility] Heart rate 82 /min 82 /min [facility] Respiratory rate 16 /min 16 /min [facility] Oxygen saturation in Arterial blood by Pulse oximetry 99 % 99 % [facility] Body temperature 36.44 Lucia 36.44 Lucia [facility] Body height 168.9 cm 168.9 cm [facility] Body weight 82 kg 82 kg [facility] Body mass index (BMI) [Ratio] 28.74 kg/m2 28.74 kg/m2 [facility] Systolic blood pressure 152 mm[Hg] 152 mm[Hg] S [facility] Diastolic blood pressure 69 mm[Hg] 69 mm[Hg] [facility] Heart rate 66 /min 66 /min [facility] Body height 168.9 cm 168.9 cm [facility] Body weight 81.965 kg 81.965 kg [facility] Body mass index (BMI) [Ratio] 28.73 kg/m2 28.73 kg/m2 [facility] Oxygen saturation in Arterial blood by Pulse oximetry 98 % 98 % [facility] Systolic blood pressure 190 mm[Hg] 190 mm[Hg] M [facility] ([facility]) Heart rate 78 /min 78 /min [facility] ([facility] Body temperature 96.8 [degF] 96.8 [degF] [facility] ([facility]) Diastolic blood pressure 90 mm[Hg] 90 mm[Hg] [facility] ([facility]) Body weight 183.00 [lb_av] 183.00 [lb_av] [facility] ([facility]) Body height 68 [in_i] 68 [in_i] [facility] 5'8" Body weight 83.009 kg 83.009 kg [facility] ([facility] Body mass index (BMI) [Ratio] 27.8 kg/m2 27.8 k g/m2 [facility] ([facility]) Systolic blood pressure 170 mm[Hg] 170 mm[Hg] M [facility] ([facility]) Diastolic blood pressure 66 mm[Hg] 66 mm[Hg] [facility] ([facility]) Body temperature 97.7 [degF] 97.7 [degF] [facility] ([facility]) Inhaled oxygen concentration 21 % 21 % [place] ([facility]) Systolic blood pressure 138 mm[Hg] 138 mm[Hg] [place] ([facility]) Diastolic blood pressure 70 mm[Hg] 70 mm[Hg] [place] ([facility]) Heart rate 65 /min 65 /min [place] [facility] Heart rate rhythm 1 1 [place] ([facility]) Respiratory rate 18 /min 18 /min [place] [facility] Body temperature 96.8 [degF] 96.8 [degF] [place] ([facility]) Body weight 184.5 [lb_av] 184.5 [lb_av] [place] ([facility]) PhenX - pain, abdominal - type and intensity protocol 0 0 [place] ([facility]) Oxygen saturation in Arterial blood by Pulse oximetry 97 % 97 % [place] ([facility]) Inhaled oxygen flow rate 0 L/min 0 L/min [place] ([facility]) Heart rate 77 /min 77 /min [facility] Body temperature 98.9 [degF] 98.9 [degF] [facility] ([facility]) Body height 68 [in_i] 68 [in_i] [facility] 5'8" Body weight 183.31 [lb_av] 183.31 [lb_av] [facility] ([facility]) Body weight 83.148 kg 83.148 kg [facility] Oxygen saturation in Arterial blood by Pulse oximetry 97 % 97 % [facility] ([facility]) Body mass index (BMI) [Ratio] 27.9 kg/m2 27.9 k g/m2 [facility] ([facility]) Systolic blood pressure 140 mm[Hg] 140 mm[Hg] [place] [facility] Diastolic blood pressure 58 mm[Hg] 58 mm[Hg] [place] [facility] Heart rate 64 /min 64 /min [place] ([facility]) Heart rate rhythm 1 1 [place] ([facility]) Respiratory rate 18 /min 18 /min [place] ([facility]) Body temperature 98 [degF] 98 [degF] [place] ([facility]) Body weight 177 [lb_av] 177 [lb_av] [place] ([facility]) PhenX - pain, abdominal - type and intensity protocol 0 0 [place] ([facility]) Oxygen saturation in Arterial blood by Pulse oximetry 97 % 97 % [place] ([facility]) Inhaled oxygen flow rate 0 L/min 0 L/min [place] ([facility]) Inhaled oxygen concentration 21 % 21 % [place] ([facility]) Body height 167.64 cm 167.64 cm [facility] Body weight 83.57 kg 83.57 kg [facility] Body temperature 98.2 [degF] 98.2 [degF] [facility] Body height 167.64 cm 167.64 cm [facility] Body weight 83.57 kg 83.57 kg [facility] Heart rate 78 /min 78 /min [facility] Body temperature 98.2 [degF] 98.2 [degF] [facility] Heart rate 78 /min 78 /min [facility] Oxygen saturation in Arterial blood by Pulse oximetry 98 % 98 % [facility] Oxygen saturation in Arterial blood by Pulse oximetry 98 % 98 % [facility] Systolic blood pressure 148 mm[Hg] 148 mm[Hg] [facility] Diastolic blood pressure 60 mm[Hg] 60 mm[Hg] [facility] Systolic blood pressure 148 mm[Hg] 148 mm[Hg] [facility] Body mass index (BMI) [Ratio] 29.7 kg/m2 29.7 k g/m2 [facility] Diastolic blood pressure 60 mm[Hg] 60 mm[Hg] [facility] Body mass index (BMI) [Ratio] 29.7 kg/m2 29.7 k g/m2 [facility] Systolic blood pressure 144 mm[Hg] 144 mm[Hg] [facility] ([facility]) Diastolic blood pressure 56 mm[Hg] 56 mm[Hg] [place] ([facility]) Oxygen saturation in Arterial blood by Pulse oximetry 98 % 98 % [place] ([facility]) Inhaled oxygen flow rate 0 L/min 0 L/min [place] ([facility]) PhenX - pain, abdominal - type and intensity protocol 0 0 [place] ([facility]) Inhaled oxygen concentration 21 % 21 % [place] ([facility]) Systolic blood pressure 158 mm[Hg] 158 mm[Hg] [place] ([facility]) Diastolic blood pressure 60 mm[Hg] 60 mm[Hg] [place] ([facility]) Heart rate 60 /min 60 /min [place] ([facility]) Respiratory rate 18 /min 18 /min [place] ([facility]) Body temperature 9.1 [degF] 9.1 [degF] [place] [facility] Body weight 188 [lb_av] 188 [lb_av] [place] [facility] Heart rate 74 /min 74 /min [place] ([facility]) Oxygen saturation in Arterial blood by Pulse oximetry 97 % 97 % [place] ([facility]) PhenX - pain, abdominal - type and intensity protocol 0 0 [place] ([facility]) unable to obtain vitals due to Covid 19 pandmeic. PhenX - pain, abdominal - type and intensity protocol 0 0 [place] ([facility]) Unable to obtain all vitals due to covid 19 pandemic ID Date Data Source [id number] 01/01/2021 11:47:06 AM [facility] Name Value Range Interpretation Code Description Data Source(s) WEIGHT RECORDED 178 lb 178 lb [facility] Body height Measured 68 in 68 in [facility] ID Date Data Source [id number] 12/03/2020 02:16:13 PM [facility] Name Value Range Interpretation Code Description Data Source(s) WEIGHT RECORDED 183.4 lb 183.4 lb [facility] Body height Measured 69 in 69 in [facility] ID Date Data Source [id number] 10/17/2020 10:41:58 AM [facility] Name Value Range Interpretation Code Description Data Source(s) WEIGHT RECORDED 198.6 lb 198.6 lb [facility] WEIGHT RECORDED 192.2 lb 192.2 lb [facility] WEIGHT RECORDED 198.41 lb 198.41 lb [facility] Body height Measured 67 in 67 in [facility] TRANSFER FROM [facility] Patient Treatment Plan of Care Planned Activity Planned Date Details Description Data Source (s) Elvia [place] 100 UNIT/ML Subcutaneous Solution Pen -injector 04/26/2021 12:00:00 AM EDT [place] ([facility]) OneTouch Ultra Mini w/Device Kit 04/26/2021 12:00:00 AM EDT [place] ([facility]) OneTouch Ultra In Vitro Strip 04/26/2021 12:00:00 AM EDT [place] ([facility]) OneTouch Delica Lancets 30G Miscellaneous 04/26/2021 12:00:00 AM ED T [place] ([facility]) normal saline flush 0.9 % injection 3 mL 04/09/2021 10:00:00 PM EDT [facility] Magnesium Chloride 0.47009 MEQ/ML / Pota ssium Chloride 0.0497 MEQ/ML / Sodium Acetate 0.0163 MEQ/ML / Sodium Chloride 0.0899 MEQ/ML / Sodium gluconate 5.02 MG/ML Injectable Solution [Normosol-R] 04/09/2021 08:00:00 PM EDT [facility] Albuterol 0.833 MG/ML / Ipratropium [place] 0.167 MG/M L Inhalant Solution 04/09/2021 08:00:00 PM EDT [facility] 10 ML Atropine Sulfate 0.1 MG/ML Prefilled Syringe 04/09/2021 06 :47:36 PM EDT [facility] fentaNYL Citrate (PF) (SUBLIMAZE) injection 25 mcg 04/09/2021 06 :47:36 PM EDT [facility] ondansetron (ZOFRAN) injection 4 mg 04/09/2021 06:47:36 PM EDT [facility] Albuterol 0.83 MG/ML Inhalant Solution 04/09/2021 06:47:36 PM EDT [facility] Racepinephrine 22.5 MG/ML Inhalant Solution 04/09/2021 06:47:36 PM EDT [facility] labetalol (NORMODYNE,TRANDATE) injection 5 mg 04/09/2021 06:47:36 P M EDT [facility] Hydralazine Hydrochloride 20 MG/ML Injectable Solution 04/09/2021 06:47:36 PM EDT [facility] HYDROmorphone (DILAUDID) injection 0.5 mg 04/09/2021 06:47:36 PM ED T [facility] carvedilol 25 MG Oral Tablet 03/01/2021 12:00:00 AM EDT [place] ([facility]) ezetimibe 10 MG Oral Tablet 01/29/2021 12:00:00 AM EDT [place] [facility] Basaglar KwikPen 100 UNIT/ML Subcutaneous Solution Pen -injector 12/24/2020 12:00:00 AM EDT [place] ([facility]) Nitroglycerin 0.4 MG Sublingual Tablet [Nitrostat] 11/16/2020 12 :00:00 AM EDT [place] ([facility]) Nitroglycerin 0.4 MG Sublingual Tablet 10/21/2020 12:00:00 AM [facility] Levofloxacin 750 MG Oral Tablet 10/19/2020 12:00:00 [...] Delayed Release Oral Tablet 09/17/2020 12:00:00 AM [facility] ([facility]) carvedilol 25 MG Oral Tablet 09/17/2020 12:00:00 AM [facility] ([facility]) Nitroglycerin 0.4 MG Sublingual Tablet 09/17/2020 12:00:00 AM [facility] ([facility]) OneTouch Ultra In Vitro Strip 08/28/2020 12:00:00 AM [facility] ([facility]) ezetimibe 10 MG Oral Tablet 08/04/2020 12:00:00 AM EST [place] ([facility]) Basaglar KwikPen 100 UNIT/ML Subcutaneous Solution Pen -injector 05/12/2020 12:00:00 AM EDT [place] ([facility]) carvedilol 25 MG Oral Tablet 04/27/2020 12:00:00 AM ED [place] ([facility]) pantoprazole 40 MG Delayed Release Oral Tablet 04/27/2020 12:00:00 AM ED [place] ([facility]) Basaglar KwikPen 100 UNIT/ML Subcutaneous Solution Pen -injector 04/03/2020 12:00:00 AM EDT [place] ([facility]) OneTouch Ultra In Vitro Strip 03/18/2020 12:00:00 AM ED [place] ([facility]) Nitroglycerin 0.4 MG Sublingual Tablet [Nitrostat] 02/08/2020 12 :00:00 AM ED [place] ([facility]) carvedilol 25 MG Oral Tablet 11/08/2019 12:00:00 AM EDT [place] ([facility]) pantoprazole 40 MG Delayed Release Oral Tablet 11/08/2019 12:00:00 AM ED [place] ([facility]) Nystatin 100 UNT/MG Topical Powder 01/10/2019 12:00:00 AM EDT [place] [facility] Sure Comfort Pen [place] 31G X 8 MM Miscellaneous 03/10/2017 12: 00:00 AM EDT [place] [facility] Ascorbic Acid 60 MG / Beta Carotene 5000 UNT / Copper Sulfate 40 MG / dl-alpha tocopheryl acetate 30 UNT / Sodium Selenite 0.04 MG / Zinc Oxide 40 MG Oral Tablet 06/10/2016 12:00:00 AM EDT [facility] Aspirin 81 MG Delayed Release Oral Tablet 06/09/2016 12:00:00 AM ED T [facility] 200 ACTUAT Albuterol 0.09 MG/ACTUAT Metered Dose Inhal er [ProAir] 05/29/2015 12:00:00 AM EDT [place] ([facility]) albuterol (PROVENTIL HFA;VENTOLIN HFA) 108 (90 Base) MCG/ACT inhale r [facility] Insulin Glargine 100 UNT/ML Injectable Solution [facility] Losartan Potassium 25 MG Oral Tablet [facility] carvedilol 25 MG Oral Tablet [facility] Hydrochlorothiazide 12.5 MG / Losartan Potassium 100 MG Oral Tablet [facility]
--- NOTE | 2021-06-24 22:29 | HPEPDOC ---
[facility] Medical History & Physical Date of Admission Jun 24, 2021 Date of Service: Jun 24, 2021 History and Physical CHIEF COMPLAINT: shortness of breath HISTORY OF PRESENT ILLNESS: 76-year-old male with a past medical history of type 2 diabetes, ESRD on hemodialysis, CAD status post CABG and stenting, WPW, peripheral arterial disease as well as A. fib not on anticoagulation due to frequent GI bleeding, patient presented to the ER after he has been experiencing shortness of breath and non productive cough for the last 3 to 4 days. He otherwise denies CP, palpitations, n/v/d, or subjective fevers. He received hemodialysis on 06/24/2021 without difficulties. He presents to the ER in hypertensive urgency with a systolic blood pressure of 200. Did not take antihypertensives at home today. He is also short of breath. Chest x-ray shows evidence for pulmonary vascular congestion. Dr. Guevara was contacted from the E R who recommended resuming the patient's daily hypertensive medications and to administer 100 mg of IV Lasix. Patient was given 300 mg irbesarta, 25 mg PO hydralazine 25 mg PO carvedilol. Plan will be for hemodialysis on 06/25/2021. PAST MEDICAL HISTORY: 1. Rojpy-Vwbdnpbly-Qjjwm (WPW) syndrome 2. CAD s/p CABG and stents. Follows with cardiology in [place]. 3. Hypertension 4. NIDDM 5. PVD 6. ESRD on HD, Mon//Mon. 7. Atrial fibrillation not on anticoagulation due to GI bleed and patient choice 8. PAD, follows with vascular surgery at [facility] in [place], [place]. PAST SURGICAL HISTORY: CABG Permacath placement Gastric bypass L hallux amputation 2/2 PAD SOCIAL HISTORY: Former smoker quit 20 years ago Denies etoh use Denies illicit drug use FAMILY HISTORY: Father: hx of CAD, DM2, HTN Mother: Hx of CAD, DM2, HTN ALLERGIES: Please see below. REVIEW OF SYSTEMS: 10 point ROS conducted, relevant findings were noted in HPI. HOME MEDICATIONS: Please see below. PHYSICAL EXAMINATION: VITAL SIGNS: please see below General: sitting upright in bed, short of breath, alert and oriented HEENT: PERRLA, EOMI, sclerae clear Neck: supple, normal ROM, no JVD Respiratory: fair inspiratory effort. crackles at bilateral lung bases. no rales, no rhonchi CVS: RRR, normal S1, S2, no murmurs Abdo: soft, no masses, no hepatosplenomegaly, BS+, no rebound tenderness Extremities: 1+ pitting edema. L hallux amputation. Cap refil 2 sec. No duskiness. Neuro: no focal neuro deficits, moving all 4 extremities, CN2-12 intact. Strength 5/5 in all 4 extremities. No nystagmus. Psych: calm, cooperative, AAO x 3 LABORATORY DATA: See below. IMAGING: CXR (06/24/21): 1. Bilateral pleural effusions, left greater than right. 2. Increased pulmonary vascular congestion consistent with fluid overload. MICROBIOLOGY: Please see below. ASSESSMENT: 76-year-old male with a past medical history of type 2 diabetes, ESRD on hemodialysis, CAD status post CABG and stenting, WPW, peripheral arterial disease as well as A. fib not on anticoagulation due to frequent GI bl eeding (and patient choice). Presented with 4 day hx of dyspnea and non productive cough. Found to have pulmonary vascular congestion, as well as hypertensive urgency. Resume home BP med regimen. Dr. Guardado consulted for HD. . PLAN: Dyspnea 2/2 pulmonary vascular congestion in setting of ESRD vs possible congestive hear failure - SOB on RA. CXR showing pulmonary vascular congestion, pleural effusions - add on BNP - last echo reviewed from 12/08/18: EF 65-70%. No RWMA. - repeat 2D echo. - will monitor daily weight, I&O. - Nephrology consulted from ER, Dr. Guevara. Recommends 100 mg IV lasix - plan for HD on 06/25/21. # Diabetes mellitus type 2 - Hypoglycemia precautions. - ISS and FSBS AC/HS - resume home levemir (takes 20 units basaglar at home) #. Macrocytic anemia - last B12 in 01/01, > 2000 - likely 2/2 AOCD - Hgb 12.1. Above baseline # Paroxysmal atrial fibrillation -rate is well controlled - c/w home carvedilol -has hx of GIB. patient prefers not to be on anticoagulation. #. WPW -Avoid nondihydropyradine calcium channel blockers (Verapamil and diltiazem) -Monitor on telemetry # Hypertensive Urgency - SBP > 200 mmHg - did not take home medications today - resume irbesartan 300 mg daily, carvedilol and hydralazine - s/p 100 mg IV lasix in ER. DVT ppx: SCDs. TEDs. Dispo: pending clinical improvement. Admission expected to span > 2 midnights. Vital Signs Vital Signs Date Time Temp Pulse Resp B/P (MAP) Pulse Ox O2 Delivery O2 Flow Rate FiO2 06/24/21 21:21 186/76 (112) 06/24/21 21:14 83 16 92 Room Air 06/24/21 19:29 98.3 Laboratory Data Labs 24H Laboratory Tests 2 06/24/21 19:46: Immature Granulocyte % (Auto) 0.4, Neutrophils (%) (Auto) 80.8H, Lymphocytes (%) (Auto) 7.2L, Monocytes (%) (Auto) 8.5H, Eosinophils (%) (Auto) 2.2, Basophils (%) (Auto) 0.9, Neutrophils # (Auto) 7.5, Lymphocytes # (Auto) 0.7L, Monocytes # (Auto) 0.8, Eosinophils # (Auto) 0.2, Basophils # (Auto) 0.1, Nucleated Red Blood Cells % (auto) 0.0, Anion Gap 8, Glomerular Filtration Rate 13.5L, Calcium Level 8.6L, Total Bilirubin 0.8, Direct Bilirubin 0.2, Aspartate Amino Transf (AST/SGOT) 18, Alanine Aminotransferase (ALT/SGPT) 24, Alkaline Phosphatase 76, Total Creatine Kinase 169, Creatine Kinase MB < 1.0, Creatine Kinase MB Relative Index 0.59, Troponin I 0.03, Total Protein 6.9, Albumin 3.5, Albumin/Globulin Ratio 1.0 CBC/BMP Laboratory Tests 06/24/21 19:46 Microbiology Microbiology 06/24/21 Respiratory Virus Panel (PCR) (ROSSY) - Final, Complete Respiratory Syncytial Virus Home Medications Scheduled Bacillus Coagulans/Inulin (Probiotic Formula Capsule) 1 Each Capsule, 1 CAP PO BID Carvedilol (Carvedilol) 25 Mg Tablet, 1 TAB PO BID Cholecalciferol (Vitamin D3) (Vitamin D3) 125 Mcg Tablet, 125 MCG PO DAILY Cyanocobalamin (Vitamin B-12) (Vitamin B-12) 500 Mcg Tab, 500 MCG PO DAILY Epoetin Adarsh (Procrit) 20,000 Unit/1 Ml Vial, 1 VIAL SC 2XW GETS BLOOD DRAWN EVERY TWO WEEKS TO CHECK LEVELS. LAST BLOOD DRAW WAS 10/07/20 Ezetimibe (Ezetimibe) 10 Mg Tablet, 10 MG PO QHS Ferrous Sulfate (Ferrous Sulfate) 325 Mg Tab, 325 MG PO BID Finasteride (Finasteride) 5 Mg Tablet, 5 MG PO QHS Hydralazine HCl (Hydralazine HCl) 25 Mg Tablet, 25 MG PO TID Insulin Glargine,Hum.rec.anlog (Basaglar Kwikpen U-100) 100 Unit/Ml Inj, 20 UNITS SC DAILY IF BS>110 Irbesartan (Irbesartan) 300 Mg Tablet, 300 MG PO QHS Multivitamin (Multivitamins) 1 Each Tablet, 2 TAB PO DAILY Pantoprazole Sodium (Pantoprazole Sodium) 40 Mg Tab, 40 MG PO DAILY Tamsulosin Hcl (Tamsulosin HCl) 0.4 Mg Capsule, 0.4 MG PO DAILY Scheduled PRN Nitroglycerin (Nitrostat) 0.4 Mg Subl, 0.4 MG SL NITRO PRN for CHEST PAIN Allergies Coded Allergies: nicotine (Verified Allergy, Intermediate, hives, 10/11/20) atorvastatin (Verified Adverse Reaction, Intermediate, myalgia, 10/11/20) clopidogrel (Verified Adverse Reaction, Intermediate, rectal bleeding, 10/11/20) pioglitazone (Verified Adverse Reaction, Intermediate, myalgia, 10/11/20) rosuvastatin (Verified Adverse Reaction, Intermediate, leg cramps, 10/11/20) lactose (Verified Adverse Reaction, Mild, diarrhea, 10/11/20) heparin (Verified Adverse Reaction, Unknown, rectal bleeding, 10/11/20) CHEVY ACKERMAN MD Jun 24, 2021 22:29
[2021-06-24 23:10] LABS: ALBUMIN 3.5 GM/DL (3.2-5.2); BILIRUBIN,TOTAL 0.8 MG/DL (0.2-1.0); CREATININE FOR GFR 4.98 MG/DL (0.70-1.30); GLOMERULAR FILTRATION RATE 12.2 (>42); TOTAL PROTEIN 7.1 GM/DL (6.4-8.2)
[2021-06-25 00:32] VITALS: BP 152/72
[2021-06-25] MEDS ORDERED: BENZONATATE 100MG CAPSULE PO ONE (00:50)
[2021-06-25] MEDS ORDERED: CETIRIZINE (ZyrTEC) 10 MG TAB PO ONE (03:50)
[2021-06-25] MEDS ORDERED: ALBUTEROL 90 MCG/ACT 8GM HFA INHALER INH PRN (03:50)
--- NOTE | 2021-06-25 07:57 | ECGEPIP ---
[facility] - ED Test Date: 2021-06-24 Pat Name: LORY WINKLER Department: Room: - Gender: Male Negative Developer: ISELA : 1945 Requested By: VAL Avila Order Number: [id number] Reading MD: Kedar Foley Measurements Intervals [employer] Rate: 89 P: 62 [place]: 154 QRS: 89 QRSD: 144 T: 6 QT: 432 QTc: 525 Interpretive Statements Normal sinus rhythm Right bundle branch block Cannot rule out Inferior infarct , age undetermined SIMILAR TO 01/10/21 Electronically Signed on 06-25-2021 7:56:57 EST by Kedar Foley
[2021-06-25 08:00] VITALS: BP 158/68
[2021-06-25] MEDS ORDERED: LEVEMIR (INSULIN DETEMIR) 1 UNITS/0.01ML SC SCH (09:00)
[2021-06-25] MEDS: CARVedilol 12.5 MG TAB PO SCH ×2 (09:01→22:05)
[2021-06-25] MEDS: CYANOCOBALAMIN 500 MCG TAB PO SCH (09:01)
[2021-06-25] MEDS: HumaLOG INSULIN (NovoLOG) PER UNIT SC SCH ×3 (09:01→17:32)
[2021-06-25] MEDS: FERROUS SULFATE 325MG TAB PO SCH ×2 (09:01→22:03)
[2021-06-25] MEDS: PANTOPRAZOLE 40MG TAB (PROTONIX) PO SCH (09:02)
[2021-06-25] MEDS ORDERED: LIDOCAINE 1% SDV 5ML VIAL SC PRN (10:05)
[2021-06-25] MEDS ORDERED: SODIUM CHLORIDE 0.9% 1000ML IV PRN (10:05)
[2021-06-25] MEDS: BENZONATATE 100MG CAPSULE PO SCH ×3 (10:16→22:03)
[2021-06-25] MEDS: CEPACOL LOZENGE PO PRN ×2 (10:16→17:32)
[2021-06-25 10:35] LABS: HEMATOCRIT 33.7 % (42.0-52.0); HEMOGLOBIN 10.9 g/dl (13.5-17.5); MEAN CORPUSCULAR HEMOGLOBIN 33.5 pg (27.0-33.0); MEAN CORPUSCULAR HGB CONC 32.3 g/dl (32.0-36.5); MEAN CORPUSCULAR VOLUME 103.7 fl (80.0-96.0); PLATELET COUNT, AUTOMATED 183 10^3/uL (150-450); RED BLOOD COUNT 3.25 10^6/uL (4.30-6.10); WHITE BLOOD COUNT 6.5 10^3/uL (4.0-10.0)
[2021-06-25 10:56] LABS: CALCIUM LEVEL 8.9 MG/DL (8.8-10.2); CREATININE FOR GFR 5.51 MG/DL (0.70-1.30); GLOMERULAR FILTRATION RATE 10.8 (>42)
--- NOTE | 2021-06-25 13:03 | CR ---
CONSULTATION DATE: 06/25/2021 REFERRING PHYSICIAN: CHEVY ACKERMAN MD REASON FOR CONSULTATION: To assist in the management of shortness of breath and endstage renal disease. Note: This patient was discussed with the Emergency Room physician last evening and is seen this morning on his bedside. HISTORY OF PRESENT ILLNESS: Mr. Moore is a 76-year-old very pleasant gentleman with a known history of Type 2 diabetes, hypertension, coronary artery disease with prior CABG and stenting, history of WPW syndrome, peripheral vascular disease, history of atrial fibrillation, prior history of GI bleed with anemia and a history of endstage renal disease. Patient is regularly dialyzed on Monday, and Monday schedule. He did have his regular dialysis yesterday, however felt short of breath even after dialysis due to which he came to the Emergency Room. He was found to have small pleural effusions bilaterally and also pulmonary vascular congestion on the chest x-ray. Patient was admitted last evening and a Nephrology consultation was requested. He is seen this morning. PAST MEDICAL HISTORY: 1. Coronary artery disease, status post CABG and stenting. 2. History of WPW syndrome. 3. Hypertension. 4. Type 2 diabetes. 5. Peripheral vascular disease. 6. Endstage renal disease. 7. Atrial fibrillation, not on any anticoagulation due to GI bleed. 8. History of peripheral arterial disease. 9. History of anemia. 10.Secondary hyperparathyroidism. PAST SURGICAL HISTORY: 1. Coronary artery bypass surgery and angioplasty with stent placement. 2. History of Perm-A-Cath placement. 3. History of gastric bypass several years ago. 4. History of left hallux toe amputation. 5. Right arm AV fistula. PERSONAL AND SOCIAL HISTORY: Patient quit smoking about 20 years ago. He denies any alcohol or drug use. FAMILY HISTORY: Significant for coronary artery disease, hypertension and diabetes. HOME MEDICATIONS: 1. Carvedilol 25 mg b.i.d. 2. Vitamin D 50,000 units once a week. 3. Vitamin B12 500 mcg daily. 4. Epogen 20,000 units twice a week. 5. Zetia 10 mg daily. 6. Ferrous sulfate 325 mg b.i.d. 7. Finasteride 5 mg at bedtime. 8. Hydralazine 25 mg t.i.d. 9. Basaglar 20 units daily. 10.Irbesartan 300 mg daily. 11.Multivitamin one tablet daily. 12.Pantoprazole 40 mg daily. 13.Flomax 0.4 mg daily. ALLERGIES: Patient has multiple allergies including nicotine, atorvastatin, Plavix, Pioglitazone, Crestor, Lactulose, and Heparin. REVIEW OF SYSTEMS: He denies any fever or chills. Ears, nose and throat are unremarkable. Cardiovascular system: Significant for shortness of breath and some leg edema. He denies any chest pain. Respiratory system is negative for cough or hemoptysis. GI system is negative for vomiting or diarrhea. system is negative for dysuria or hematuria. He does have a history of BPH. Endocrine system is significant for Type 2 diabetes and secondary hyperparathyroidism. Hematological system is significant for anemia with recurrent GI bleed. He is not on any anticoagulation. Musculoskeletal system: Significant for lower extremity edema. He denies any significant arthritis. Psychosocial system is negative for depression or anxiety. Neurological system: Negative for seizures or stroke. Skin is negative for rash or ulcers. PHYSICAL EXAMINATION: VITAL SIGNS: Temperature is 98.4 degrees Fahrenheit, heart rate is 76 per minute and respiratory rate is 18 per minute. Blood pressure is 158/68 mmHg and oxygen saturation is 90% on room air. HEAD: Atraumatic. NECK: Supple. JVD is about 9 cm above sternal angle. HEART: Heart sounds are regular. LUNGS: Diminished breath sounds at bases with bibasilar rales. ABDOMEN: Soft and nontender. Bowel sounds are normal. EXTREMITIES: Without any cyanosis or clubbing. He has an AV fistula in the right arm. Lower extremity edema is 2+ bilaterally. NEUROLOGIC: He is awake, alert and oriented x3. LABORATORY DATA: WBC count is 6.5, hemoglobin is 10.9 and hematocrit 33.7, platelets are 183,000. Sodium is 136, potassium is 4.0, BUN 38 and creatinine 5.51. Glucose is 124 and calcium is 8.9. His BNP level was 39,055 last evening. Chest x-ray showed bilateral pleural effusions, left bigger than the right and pulmonary vascular congestion. PROBLEMS: 1. Shortness of breath, most likely related to volume overload. Will ultrafiltrate him today and try to remove 2 liters of fluid. Will get him back on his regular scheduled dialysis day for tomorrow and remove further 2-3 liters of fluid. 2. Endstage renal disease, patient is regularly dialyzed on Monday, , and Monday schedule. He was dialyzed yesterday and the next dialysis will be scheduled for tomorrow. 3. Hypertension. Blood pressure is reasonably well-controlled. It is likely to get even better control after his volume status gets corrected. 4. Atrial fibrillation, his ventricular rate is well-controlled and he is not on any anticoagulation due to prior history of GI bleed. Thank you for involving me in the care of Mr. Moore. Nephrology Service will follow him along with you.
[2021-06-25 16:00] VITALS: BP 144/67
[2021-06-25] MEDS ORDERED: DEXTROMETHORPHAN 60MG/10ML SUSP 90ML BTL(DELSYM) PO PRN (17:45)
[2021-06-25 20:00] VITALS: BP 159/88
[2021-06-25 20:06] VITALS: BP 138/60
[2021-06-25] MEDS ORDERED: HumaLOG INSULIN (NovoLOG) PER UNIT SC SCH (21:00)
[2021-06-25] MEDS ORDERED: IRBESARTAN 150MG TAB PO SCH (21:00)
[2021-06-26] MEDS ORDERED: BENZONATATE 100MG CAPSULE PO ONE (00:15)
[2021-06-26 06:00] VITALS: BP 144/64
[2021-06-26] MEDS ORDERED: BENZONATATE 100MG CAPSULE PO SCH (06:00)
[2021-06-26] MEDS: PANTOPRAZOLE 40MG TAB (PROTONIX) PO SCH (06:32)
[2021-06-26] MEDS: FERROUS SULFATE 325MG TAB PO SCH (06:32)
[2021-06-26] MEDS: CYANOCOBALAMIN 500 MCG TAB PO SCH (06:32)
[2021-06-26 06:33] VITALS: BP 144/64
[2021-06-26] MEDS: CARVedilol 12.5 MG TAB PO SCH (06:33)
[2021-06-26 06:43] LABS: HEMATOCRIT 35.3 % (42.0-52.0); HEMOGLOBIN 11.6 g/dl (13.5-17.5); MEAN CORPUSCULAR HEMOGLOBIN 33.6 pg (27.0-33.0); MEAN CORPUSCULAR HGB CONC 32.9 g/dl (32.0-36.5); MEAN CORPUSCULAR VOLUME 102.3 fl (80.0-96.0); PLATELET COUNT, AUTOMATED 167 10^3/uL (150-450); RED BLOOD COUNT 3.45 10^6/uL (4.30-6.10); WHITE BLOOD COUNT 7.5 10^3/uL (4.0-10.0)
[2021-06-26 06:58] LABS: CALCIUM LEVEL 8.6 MG/DL (8.8-10.2); CREATININE FOR GFR 6.22 MG/DL (0.70-1.30); GLOMERULAR FILTRATION RATE 9.4 (>42); POTASSIUM SERUM 4.3 MEQ/L (3.5-5.1)
[2021-06-26] MEDS: HumaLOG INSULIN (NovoLOG) PER UNIT SC SCH (07:30)
--- NOTE | 2021-06-26 07:53 | IPNPDOC ---
Subjective Date Seen The patient was seen on 06/25/21. Subjective Chief Complaint/HPI Complains of persistent bothersome cough. Does have some phlegm production. Also complains of swollen legs. Objective Physical Examination General Exam: Positive: Alert, Cooperative, No Acute Distress Eye Exam: Positive: PERRLA, Conjunctiva & lids normal, EOMI; Negative: Sclera icteric ENT Exam: Positive: Atraumatic, Mucous membr. moist/pink, Pharynx Normal Neck Exam: Positive: Supple; Negative: JVD, thyromegaly Chest Exam: Positive: Normal air movement, Diminished (at both the bases), Other (diffuse fine crackles bilaterally.) Heart Exam: Positive: Rate Normal, Irregular Rhythm, Normal S1, Normal S2, Murmurs (systolic murmur); Negative: Rubs Abdomen Exam: Positive: Normal bowel sounds, Soft; Negative: Tenderness Extremity Exam: Positive: Edema; Negative: Clubbing, Cyanosis Skin Exam: Positive: Nl turgor and temperature; Negative: Rash, Breakdown Psych Exam: Positive: Memory Intact, Oriented x 3 Assessment /Plan Assessment 76-year-old male with a past medical history of type 2 diabetes, ESRD on hemodialysis, CAD status post CABG and stenting, WPW, peripheral arterial disease as well as A. fib not on anticoagulation due to frequent GI bleeding, presented to the ER after he has been experiencing shortness of breath and non productive cough for 3 to 4 days. He presented to the ER in hypertensive urgency with a systolic blood pressure of 200. Did not take antihypertensives at home that day. Chest x-ray shows evidence for pulmonary vascular congestion with bilateral pleural effusions. Dr. Guevara was contacted from the ER who re commended resuming the patient's daily hypertensive medications and to administer 100 mg of IV Lasix. Respiratory panel was also positive for rhinovirus. Chuck was admitted for CHF exacerbation and Rhinovirus infection. Diastolic CHF exacerbation Echo in 2019: EF of 65%, grade 2 diastolic dysfunction, mild to moderate mitral regurgitation, mild to moderate TR, moderate pulmonary HTN New echo pending. Patient will be going for UF today. Continue home diuretics. He does make some urine Rhino virus resp infection symptomatic management. Diabetes mellitus type 2 Hypoglycemia precautions. ISS and FSBS AC/HS resume home levemir Paroxysmal atrial fibrillation rate is well controlled c/w home carvedilol has hx of GIB. patient prefers not to be on anticoagulation. H/o WPW No issues at this time Hypertensive Urgency resolved continue home meds PAD No issues at this time. Plan/VTE VTE Prophylaxis Ordered?: Yes VS, I&O, 24H, Fishbone Vital Signs/I&O Vital Signs Date Time Temp Pulse Resp B/P (MAP) Pulse Ox O2 Delivery O2 Flow Rate FiO2 06/26/21 06:33 72 144/64 06/26/21 06:00 97.7 16 91 Nasal Cannula 1.0 I&O- Last 24 Hours up to 6 AM 06/26/21 06:00 Intake Total 300 ml Output Total 2000 ml Balance -1700 ml Laboratory Data 24H LABS Laboratory Tests 2 06/25/21 10:18: Methicillin-Resist S.aureus DNA PCR NOT DETECTED 06/25/21 10:20: Nucleated Red Blood Cells % (auto) 0.0, Anion Gap 8, Glomerular Filtration Rate 10.8L, Calcium Level 8.9 06/25/21 13:26: Bedside Glucose (Misc Panel) 49L 06/25/21 13:48: Bedside Glucose (Misc Panel) 67L 06/25/21 17:20: Bedside Glucose (Misc Panel) 136H 06/25/21 20:24: Bedside Glucose (Misc Panel) 63L 06/26/21 06:02: Nucleated Red Blood Cells % (auto) 0.0, Anion Gap 9, Glomerular Filtration Rate 9.4L, Calcium Level 8.6L CBC/BMP Laboratory Tests 06/25/21 10:20 06/26/21 06:02 Microbiology Microbiology 06/24/21 Respiratory Virus Panel (PCR) (ROSSY) - Final, Complete Respiratory Syncytial Virus Nella May MD Jun 26, 2021 07:53
[2021-06-26] MEDS ORDERED: LEVEMIR (INSULIN DETEMIR) 1 UNITS/0.01ML SC SCH (09:00)
[2021-06-26] MEDS: CEPACOL LOZENGE PO PRN (09:10)
[2021-06-26] MEDS ORDERED: BASA100I SC (10:03)
[2021-06-26] MEDS ORDERED: BENZ-18 PO (10:06)
[2021-06-26] MEDS ORDERED: Dextromethorphan Adult 12HR PO (10:06)
[2021-06-26] MEDS ORDERED: DELS1LIQ3 PO (10:09)
--- NOTE | 2021-06-26 11:30 | IPN ---
INPATIENT NEPHROLOGY PROGRESS NOTE DATE: 06/26/2021 SUBJECTIVE: Mr. Moore is seen and examined this morning at the bedside. He is complaining of ongoing cough otherwise denies any complaints and is eager to go home and is discharge pending today. He was dialyzed yesterday with 2 liters of fluid removed and will have his regular dialysis treatment in the outpatient unit today. PHYSICAL EXAMINATION: Vital signs: Temperature 97.7, pulse 72, respiratory rate 16, blood pressure 144/64, saturating 94-95% on room air. Weight on the bed scale today is 80.6 kg. Two liters were removed with dialysis yesterday. General: Patient is seen awake, alert and oriented, comfortable in no distress sitting up in a chair. HEENT: Extraocular muscles are intact. Tongue is moist. Neck: Supple. Jugular veins are not elevated. Heart sounds: Regular S1 and S2. There is 1+ edema in the legs. Lungs: Show cough with deep inspiration otherwise no rales or crackles. There is a faint wheeze. Abdomen: Soft and nontender. Extremities: There is a fistula in the right arm which is patent. Neurologic: He is oriented times 3, interactive, conversational and cooperative with physical exam. LABORATORY DATA: White count 7.5, hemoglobin 11.6, platelets 167. Sodium 137, potassium 4.3, bicarbonate 27, glucose 79. His respiratory viral panel showed RSV positive. IMAGING STUDIES: Chest x-ray done June 24 showed bilateral pleural effusions and pulmonary vascular congestion. INPATIENT MEDICATIONS: Reviewed by myself and no changes noted as compared to yesterday with the exception of Tessalon Perles. PROBLEMS/PLAN: 1. End-stage renal disease: On hemodialysis on a Monday, , Monday schedule. Patient had an extra treatment yesterday for fluid overload (ultrafiltration) and 2 liters of fluid was removed. He will be dialyzed this afternoon at his regular chair time in the outpatient dialysis unit. He is now saturating well on room air. 2. Diastolic congestive heart failure with recent exacerbation: Patient had an extra treatment yesterday (ultrafiltration with 2 liters of fluid removal) and volume status is principally regulated by dialysis. He will have his usual treatment today in the outpatient dialysis unit and will continue with his Monday, , Monday dialysis schedule and moderate fluid restriction of 1.5 liters daily. 3. Hypertensive urgency: It has resolved. Systolic is now 130s-140s. He continues on his home regimen of carvedilol and irbesartan and had an extra ultrafiltration session yesterday for improved control of his volume status. 4. Anemia secondary to chronic kidney disease: Hemoglobin is 11.6 on the latest labs and no specific intervention is required. 5. RSV infection: Patient still has lingering cough, but is otherwise symptomatically improving and the extra fluid removal session helped as well given that his chest x-ray showed effusions and pulmonary vascular congestion. His estimated dry weight will be adjusted in the outpatient dialysis unit for better control of his volume status. 6. Disposition: Patient is stable for discharge to follow up outpatient with his usual dialysis treatment this afternoon.
[2021-06-26] MEDS ORDERED: HumaLOG INSULIN (NovoLOG) PER UNIT SC SCH (12:00)
--- NOTE | 2021-06-26 13:21 | DS.PDOC ---
Discharge Summary General Date of Admission Jun 24, 2021 at 22:21 Date of Discharge 06/26/21 Discharge Summary PROCEDURES PERFORMED DURING STAY: [None]. DISCHARGE DIAGNOSES: Diastolic CHF exacerbation Rhinovirus infection Hypertensive urgency Secondary diagnosis Type 2 diabetes, ESRD on hemodialysis, CAD status post CABG and stenting, WPW, peripheral arterial disease, paroxysmal A. fib COMPLICATIONS/CHIEF COMPLAINT: Chf,Hypertensive Urgency. HOSPITAL COURSE: 76-year-old male with a past medical history of type 2 diabetes, ESRD on hemodialysis, CAD status post CABG and stenting, WPW, peripheral arterial disease as well as A. fib not on anticoagulation due to frequent GI bleeding, presented to the ER after he has been experiencing shortness of breath and non productive cough for 3 to 4 days. He presented to the ER in hypertensive urgency with a systolic blood pressure of 200. Did not take antihypertensives at home that day. Chest x-ray shows evidence for pulmonary vascular congestion with bilateral pleural effusions. Dr. Guevara was contacted from the ER who recommended resuming the patient's daily hypertensive medications and to administer 100 mg of IV Lasix. Respiratory panel was also positive for rhinovirus. Chuck was admitted for CHF exacerbation and Rhinovirus infection. Diastolic CHF exacerbation Echo in 2019: EF of 65%, grade 2 diastolic dysfunction, mild to moderate mitral regurgitation, mild to moderate TR, moderate pulmonary HTN Patient had UF on 06/25/2021 and will be getting outpatient dialysis today Rhino virus resp infection symptomatic management. Delsym and benzonatate for cough Diabetes mellitus type 2 Hypoglycemia precautions. Will reduce dose of Levemir as patient sugar has been running low here in the hospital Paroxysmal atrial fibrillation rate is well controlled c/w home carvedilol has hx of GIB. patient prefers not to be on anticoagulation. H/o WPW No issues at this time Hypertensive Urgency resolved continue home meds PAD No issues at this time. DISCHARGE MEDICATIONS: Please see below. ALLERGIES: Please see below. PHYSICAL EXAMINATION ON DISCHARGE: VITAL SIGNS: Please see below. General Exam: Positive: Alert, Cooperative, No Acute Distress Eye Exam: Positive: PERRLA, Conjunctiva & lids normal, EOMI; Negative: Sclera icteric ENT Exam: Positive: Atraumatic, Mucous membr. moist/pink, Pharynx Normal Neck Exam: Positive: Supple; Negative: JVD, thyromegaly Chest Exam: Positive: Normal air movement, Diminished (at both the bases), Other (diffuse fine crackles bilaterally.) Heart Exam: Positive: Rate Normal, Irregular Rhythm, Normal S1, Normal S2, Murmurs (systolic murmur); Negative: Rubs Abdomen Exam: Positive: Normal bowel sounds, Soft; Negative: Tenderness Extremity Exam: Positive: Edema; Negative: Clubbing, Cyanosis Skin Exam: Positive: Nl turgor and temperature; Negative: Rash, Breakdown Psych Exam: Positive: Memory Intact, Oriented x 3 LABORATORY DATA: Please see below. IMAGING: CXR: Tubes, catheters and devices: Dual lumen dialysis catheter tip in the right atrium. Lungs: Increased pulmonary vascular congestion consistent with fluid overload. No segmental or lobar infiltrates. Pleural spaces: Bilateral pleural effusions, left greater than right. Heart/Mediastinum: Unremarkable. No cardiomegaly. Bones/joints: Status post sternotomy. IMPRESSION: 1. Bilateral pleural effusions, left greater than right. 2. Increased pulmonary vascular congestion consistent with fluid overload. ACTIVITY: [As tolerated]. DIET: Diet diabetic diet,fluid restriction 1.8 L DISPOSITION: 01 Home, Self-Care. DISCHARGE INSTRUCTIONS: Report to your dialysis center at 12 PM on 06/26/2021 Follow-up with PMD in 1 to 2 weeks ITEMS TO FOLLOWUP ON ON OUTPATIENT: Follow-up on new echo report DISCHARGE CONDITION: [Stable]. TIME SPENT ON DISCHARGE: 35 minutes. Vital Signs/I&Os Vital Signs Date Time Temp Pulse Resp B/P (MAP) Pulse Ox O2 Delivery O2 Flow Rate FiO2 06/26/21 08:32 95 Room Air 06/26/21 06:33 72 144/64 06/26/21 06:00 97.7 16 1.0 I&O- Last 24 Hours up to 6 AM 06/26/21 06:00 Intake Total 300 ml Output Total 2000 ml Balance -1700 ml Laboratory Data Labs 24H Laboratory Tests 2 06/25/21 13:26: Bedside Glucose (Misc Panel) 49L 06/25/21 13:48: Bedside Glucose (Misc Panel) 67L 06/25/21 17:20: Bedside Glucose (Misc Panel) 136H 06/25/21 20:24: Bedside Glucose (Misc Panel) 63L 06/26/21 06:02: Nucleated Red Blood Cells % (auto) 0.0, Anion Gap 9, Glomerular Filtration Rate 9.4L, Calcium Level 8.6L CBC/BMP Laboratory Tests 06/26/21 06:02 FSBS Laboratory Tests Test 06/25/21 13:26 06/25/21 13:48 06/25/21 17:20 06/25/21 20:24 Range/Units Bedside Glucose (Misc Panel) 49 67 136 63 83-110 MG/DL Microbiology Microbiology 06/24/21 Respiratory Virus Panel (PCR) (ROSSY) - Final, Complete Respiratory Syncytial Virus Discharge Medications Scheduled Bacillus Coagulans/Inulin (Probiotic Formula Capsule) 1 Each Capsule, 1 CAP PO BID, (Reported) Benzonatate (Benzonatate) 100 Mg Capsule, 200 MG PO Q8H Carvedilol (Carvedilol) 25 Mg Tablet, 1 TAB PO BID, (Reported) Cholecalciferol (Vitamin D3) (Vitamin D3) 125 Mcg Tablet, 125 MCG PO DAILY, (Reported) Cyanocobalamin (Vitamin B-12) (Vitamin B-12) 500 Mcg Tab, 500 MCG PO DAILY, (Reported) Ferrous Sulfate (Ferrous Sulfate) 325 Mg Tab, 325 MG PO BID, (Reported) Insulin Glargine,Hum.rec.anlog (Basaglar Kwikpen U-100) 100 Unit/Ml Inj, 15 UNITS SC DAILY IF BS>110 Irbesartan (Irbesartan) 300 Mg Tablet, 300 MG PO QHS, (Reported) Multivitamin (Multivitamins) 1 Each Tablet, 2 TAB PO DAILY, (Reported) Pantoprazole Sodium (Pantoprazole Sodium) 40 Mg Tab, 40 MG PO DAILY, (Reported) Scheduled PRN Albuterol Sulfate (Proair Hfa) 8.5 Gm Hfa.aer.ad, 2 PUFF INH Q4-6HP PRN for SOB/WHEEZING, (Reported) Guaifenesin/Dextromethorphan (Delsym Cough+Chest Cngst Dm Lq) 180 Ml Liquid, 10 ML PO Q4HP PRN for COUGH Nitroglycerin (Nitrostat) 0.4 Mg Subl, 0.4 MG SL NITRO PRN for CHEST PAIN, (Reported) Allergies Coded Allergies: nicotine (Verified Allergy, Intermediate, hives, 10/11/20) atorvastatin (Verified Adverse Reaction, Intermediate, myalgia, 10/11/20) clopidogrel (Verified Adverse Reaction, Intermediate, rectal bleeding, 10/11/20) pioglitazone (Verified Adverse Reaction, Intermediate, myalgia, 10/11/20) rosuvastatin (Verified Adverse Reaction, Intermediate, leg cramps, 10/11/20) lactose (Verified Adverse Reaction, Mild, diarrhea, 10/11/20) heparin (Verified Adverse Reaction, Unknown, rectal bleeding, 10/11/20) Nella May MD Jun 26, 2021 13:20
--- NOTE | 2021-06-26 16:09 | ECHO ---
ECHOCARDIOGRAM DATE OF PROCEDURE: 06/25/2021 Age: 76 years Gender: Male Height: 68 inches Weight: 178 pounds Body Surface Area: 1.95 m2. Inpatient: PCU, room 3227 REFERRING PHYSICIAN: CHEVY ACKERMAN MD INDICATION: Dyspnea. MEASUREMENTS: 2D Measurements: RV 4.2 cm LV 5.2 cm Septum 1.0 cm Posterior wall 1.0 cm Aortic Root 3.3 cm LA - 4.2 cm LVEF 45% Doppler Measurements: AV 1.34 m/s LVOT 0.84 m/s LVOT diameter 1.9 cm MV-E 131, A 87, E/A ratio 1.5 Early mitral deceleration time 201 ms E prime medial 4.3, A prime medial 5.6, E prime lateral 5.4 Average E/E prime ratio 27/PCWP - 35 mmHg PV 0.87 m/s Pulmonary artery acceleration time 109 ms RVSP 51 mmHg IVC 2.2 cm COMMENTS: Normal sinus rhythm with right bundle-branch block. M-Mode and Two Dimensional Echocardiography was performed with pulse, continuous wave, color flow, and tissue Doppler studies. Normal left ventricular size and wall thickness with subtle distal septal and apical wall motion abnormalities suspected to be related to right ventricular pressure overload. Other left ventricular wall segments move normally or slightly hypokinetic with mild and impairment of global resting systolic function. Mildly dilated left atrium with grade 2 LV diastolic dysfunction and elevated estimated mean left atrial pressure. Mildly dilated right heart chambers with slight right ventricular free wall hypokinesis and Doppler evidence of at least moderate pulmonary hypertension. Inferior vena cava (IVC) size upper limits of normal to slightly dilated with reduced respiratory collapse in keeping with elevated central venous pressure. Slight degree of aortic valvular sclerosis without stenosis and only mild insufficiency. Mild degenerative changes of the mitral valvular apparatus without stenosis and [id number] insufficiency. Normal-appearing tricuspid valve with [id number] insufficiency. A catheter could be visualized in his right atrium, but otherwise no intracardiac mass. No pericardial effusion. MTDD
== END 2021-06-26 11:50 | disposition home or self-care (01) | DRG 304 ==
LOC: M ED 19:29 → M ED INP 22:21 → ENRESERV 23:56 → M PCU 06-25 00:28 → M MSPAV 06-25 20:04
PROVIDERS: ADMIT Family Medicine; ATTEND Internal Medicine Nephrology
PROC: 5A1D70Z Performance of Urinary Filtration, Intermittent, Less than 6 Hours Per Day (ICD-10-PCS; principal; 2021-06-25)
DX: I16.0 Hypertensive urgency (principal); N18.6 End stage renal disease; I50.33 Acute on chronic diastolic (congestive) heart failure; N25.81 Secondary hyperparathyroidism of renal origin; E11.51 Type 2 diabetes mellitus with diabetic peripheral angiopathy without gangrene; I45.6 Pre-excitation syndrome; I25.10 Atherosclerotic heart disease of native coronary artery without angina pectoris; Z95.2 Presence of prosthetic heart valve; Z95.1 Presence of aortocoronary bypass graft; I48.0 Paroxysmal atrial fibrillation; Z91.14 Patient's other noncompliance with medication regimen; B33.3 Retrovirus infections, not elsewhere classified; I27.20 Pulmonary hypertension, unspecified; I34.0 Nonrheumatic mitral (valve) insufficiency; Z79.899 Other long term (current) drug therapy; Z79.4 Long term (current) use of insulin; Z88.8 Allergy status to other drugs, medicaments and biological substances; D53.9 Nutritional anemia, unspecified; I13.2 Hypertensive heart and chronic kidney disease with heart failure and with stage 5 chronic kidney disease, or end stage renal disease; D63.1 Anemia in chronic kidney disease

== ENCOUNTER → 2021-08-11 | Outpatient (CLI) | payer MEDICARE ==
[~2021-08-11] MED LIST changes: +BENZ-18 PO; +DELS1LIQ3 PO; +Dextromethorphan Adult 12HR PO; +PROAAER10 INH
--- NOTE | 2021-08-11 16:07 | REP ---
INDICATION: R06.00 DYSPNEA COMPARISON: 06/24/2021 TECHNIQUE: PA and lateral. FINDINGS: Double-lumen dialysis catheter in stable position. Mediastinum and cardiac silhouette are stable including mild cardiomegaly and evidence for prior sternotomy and CABG. Lung price demonstrate pulmonary vascular congestion with cephalization, increased pulmonary vascular and interstitial markings, moderate bilateral pleural effusions and basilar atelectasis (left greater than right). IMPRESSION: Pulmonary vascular congestion/pulmonary edema similar to prior examination. <Electronically signed by Yonas West > 08/11/21 [id number]
== END ==
LOC: M WUC 15:37
PROVIDERS: ATTEND Nurse Practitioner Family
DX: R09.89 Other specified symptoms and signs involving the circulatory and respiratory systems (principal); J81.0 Acute pulmonary edema; I51.7 Cardiomegaly; R06.00 Dyspnea, unspecified

== ENCOUNTER → 2021-09-14 | Outpatient (POV) | payer MEDICARE ==
[~2021-09-14] VITALS: Ht 175.3 cm; Wt 76.3 kg
[2021-09-14 14:15] VITALS: BP 178/88
== END ==
LOC: M IRPOV 14:03
PROVIDERS: ATTEND Radiology Diagnostic Radiology
DX: N18.6 End stage renal disease (principal); Z45.2 Encounter for adjustment and management of vascular access device; Z88.8 Allergy status to other drugs, medicaments and biological substances; Z91.09 Other allergy status, other than to drugs and biological substances

== ENCOUNTER → 2021-09-23 | Outpatient (CLI) | payer MEDICARE ==
[~2021-09-23] MED LIST changes: +IRON27TA2 PO; +LIDOCAINE 1% MDV 20ML VIAL As Ordered ONE; +MULT0.2520 PO; +ZINC1TAB2 PO
[2021-09-23 12:20] VITALS: BP 141/71
== END ==
LOC: M IRPRO 11:36
PROVIDERS: ATTEND Radiology Diagnostic Radiology
DX: Z45.2 Encounter for adjustment and management of vascular access device (principal)